=== PATIENT | male | born 1970 | race Caucasian/White ===

== ENCOUNTER 2019-04-20 12:18 | Emergency (ER) | payer OTHER, SELFPAY ==
[2019-04-20 12:18] VITALS: BP 126/91; PULSE 100; RESP 18; TEMP 36.3; O2SAT 100; BMI 45.7
--- NOTE | 2019-04-20 12:26 | CT_ITS ---
STUDY: CT ABDOMEN AND PELVIS WITH CONTRAST REASON FOR EXAM: Male, 48 years old. Abdominal pain and diarrhea. History of diverticulitis. RADIATION DOSAGE (If Supplied By Facility): CTDIvol = ( 29.07 ) mGy, DLP = ( 1993.87 ) mGycm TECHNIQUE: Transaxial images were obtained from the dome of the diaphragm to the symphysis pubis without oral contrast. 100 IV Isovue 300 was administered. Sagittal and coronal images were reconstructed. Individualized dose optimization techniques were used for this CT. COMPARISON: Comparison is made with prior study dated November 05, 2015. FINDINGS: The visualized lung bases are unremarkable. Coronary artery calcification. Normal liver. Normal gallbladder and extrahepatic biliary system. Normal spleen. Normal pancreas. Normal bilateral adrenal glands. 1.2 cm cyst in the posterior midportion of the right kidney. Normal left kidney. Normal visualized stomach. Normal small intestine. There is diverticulosis, with thickening of the colon wall, and pericolonic inflammation changes consistent with acute diverticulitis. The appendix is visualized and appears normal. There is scattered atherosclerotic calcification of the abdominal aorta, without a demonstrated aneurysm. Normal inferior vena cava. There is borderline retroperitoneal lymphadenopathy with enlarged nodes no greater than 10mm in the short axis diameter. Normal urinary bladder. There are prostatic calcifications. Small bilateral inguinal lymph nodes. There is a small umbilical hernia containing fat. Normal osseous structures. CT/Abdomen/Pelvis W IV Cont ONLY IMPRESSION: Noncomplicated acute sigmoid diverticulitis. Electronically Signed: Puneet Armstrong, at 14:25 EDT , Service support ,
--- NOTE | 2019-04-20 12:28 | ED.DCSUM_ITS ---
History of Present Illness Chief Complaint: Nausea/Vomiting/Diarrhea Detail of Chief Complaint: Diarrhea for 3 days, now nauseated with abdominal cramping Informant: Patient, Family Onset: Days Context: Gradual Onset Timing: Continuous Quality: Cramping Location: Lower abdomen Current Severity: Moderate Maximum Severity: Severe Associated Symptoms: P patient presents to the emergency department with diarrhea. He states hi Narrative: The patient presents to the emergency department with diarrhea. He states the symptoms began on Tuesday. He states he having cramping across his lower abdomen that came in waves. He states the diarrhea has slowed down, but now the pain is worse. He is been mildly nauseated. He states initially, he had a fever but that is since resolved. He is no history of prior abdominal surgery. He is a rfc-fjntzrt-qhsngvzje diabetic. He denies any recent travel. He denies any recent antibiotic use. He states he has had diverticulosis, but is unsure if he is ever had diverticulitis. Past Medical History - Allergies and Home Meds Allergies/Adverse Reactions: Allergies No Known Allergies Allergy (Verified 04/20/19 12:18) Primary Care Physician: Gerardo Borrego MD [Primary Care Provider] - Prior records reviewed: Yes Surgical History: - - uvulectomy Smoking Status: Former smoker Alcohol: Rare Drugs: None - Family History Sibling Family History: Reports: COPD, - - GERD Offspring Family History: Reports: Heart Disease - congenital heart defect requiring stents Maternal Family History: Reports: Cancer Paternal Family History: Reports: Heart Disease Review of Systems General: Reports: Chills Eyes: Denies: Visual changes - bilaterally, Diplopia ENT: Denies: Rhinorrhea, Sore throat Cardiovascular: Denies: Chest pain, Palpitations Respiratory: Denies: Dyspnea, Cough, Dyspnea on exertion Gastrointestinal: Reports: Abdominal pain, Nausea, Diarrhea Genitourinary: Denies: Dysuria, Hematuria, Frequency Musculoskeletal: Denies: Back pain, Extremity Pain Skin: Denies: Rash, Wounds Neurological: Denies: Headache, Weakness, Numbness Psych: Denies: Depression Endocrine: Denies: Polyuria Hematologic: Denies: Easy bruising Allergy: Denies: Uticaria Physical Exam Vital Signs/Narrative: Vital Signs Temp Pulse Resp BP Pulse Ox 04/20/19 12:18 97.4 F L 100 18 126/91 H 100 General: Well nourished, Well developed, No Acute Distress Head: Normocephalic, Atraumatic Eyes: Perrl, EOMI ENT: Moist mucous membranes, No rhinorrhea Neck: Supple, Nontender Cardiovascular: Regular rate, Regular rhythm, No murmurs Respiratory: No distress, CTA bilaterally, Chest nontender Abdomen: Soft, Nondistended, Tender. Negative for: Guarding, Rebound tenderness, Hyperactive bowel sounds Back: Nontender, Normal Inspection Extremities: Nontender, No edema Skin: Normal color, No rash Neurological: Alert, Oriented x3, Cranial nerves II-XII grossly intact, Normal Strength, Normal Sensation Psychological: Normal affect, Normal Mood Diagnostic/Tx/Re-eval Clinical Impression(s) from Imaging Studies Abdomen/Pelvis CT 04/20/19 12:26 IMPRESSION: Noncomplicated acute sigmoid diverticulitis. Electronically Signed: uPneet Armstrong, at 14:25 EDT , Service support , Abnormal Lab Results 04/20/19 04/20/19 04/20/19 12:50 12:50 14:00 WBC 8.1 RBC 5.50 Hgb 15.3 Hct 43.9 MCV 79.8 L MCH 27.8 MCHC 34.9 RDW 13.9 RDW Differential 40.2 Plt Count 185 MPV 10.4 Immature Gran % (Auto) 0.100 Neut % (Auto) 55.6 Lymph % (Auto) 28.4 [place] % (Auto) 11.2 H Eos % (Auto) 4.5 Baso % (Auto) 0.2 Absolute Neuts (auto) 4.5 Absolute Lymphs (auto) 2.31 Total Counted Not Reportable Sodium 134 L Potassium 3.4 L Chloride 108 H Carbon Dioxide 18.0 L Anion Gap 8 BUN 19 H Creatinine 0.76 Estim Creat Clear Calc 123.85 Est GFR (MDRD) Af Amer 139 Est GFR (MDRD) Non-Af 115 BUN/Creatinine Ratio 25.0 H Glucose 123 H Calcium 8.6 Total Bilirubin 0.60 AST 38 H ALT 47 Alkaline Phosphatase 118 H Total Protein 7.6 Albumin 3.3 Globulin 4.3 H Albumin/Globulin Ratio 0.8 L Urine Color Yellow Urine Clarity Clear Urine pH 5.0 Ur Specific [place] 1.015 Urine Protein 30 H Urine Glucose (UA) 1000 H Urine Ketones Negative Urine Occult Blood Negative Urine Nitrite Negative Urine Bilirubin Negative Urine Urobilinogen Normal Ur Leukocyte Esterase Negative - Medical Decision Making The patient presents with diarrhea and pain in his left lower quadrant. IV is established. He was given fluids, analgesics, antiemetics. He is resting more comfortably. Screening labs are relatively unremarkable. Patient underwent imaging which demonstrates diverticulitis. At this point, he is tolerating oral, his pain is controlled, and is feeling improved. I do feel it is safe for outpatient therapy. He will be covered with Cipro and Flagyl. He is given his first dose here. He is counseled concerning symptoms and reasons to return. He will be discharged home. ED Disposition - Plan for ED Patient: Instructions: Diverticulitis Prescriptions: Ciprofloxacin [Cipro] 500 mg PO BID #14 tab Prescription Printed metroNIDAZOLE [Flagyl] 500 mg PO Q8H #21 tab Prescription Printed Hydrocodone Bitart/Apap 5-325 [Drury 5MG-325MG] 1 tab PO Q6H PRN PRN 3 Days #10 tab PRN Reason: Pain Prescription Printed Referrals: Gerardo Borrego MD [Primary Care Provider] -
[2019-04-20] MEDS: Ondansetron 4 MG/2 ML Vial IV (13:00)
[2019-04-20] MEDS: Morphine 4 MG/ML Syringe IV (13:00)
[2019-04-20] MEDS: 0.9% Normal Saline 1,000 ML 1000 ML IV (13:00)
[2019-04-20 13:02] LABS: Absolute Lymphocyte Count 2.31 X10^3/ul (0.83-4.51); Absolute Neutrophil Count 4.5 X10^3/uL (2.0-7.7); Basophil# 0.02 X10^3/uL; Basophil% 0.2 % (0-1); Eosinophil# 0.37 X10^3/uL; Eosinophils% 4.5 % (0-5); Hematocrit 43.9 % (40-54); Hemoglobin 15.3 g/dl (13.0-16.5); Lymphocyte # 2.31 X10^3/ul (4.0); Lymphocyte % 28.4 % (19-41); Mean Corp Hgb Conc 34.9 g/gl (32-36); Mean Corpuscular Hgb 27.8 pg (27.0-32.0); Mean Corpuscular Volume 79.8 fL (80-94); Mean Platelet Vol. 10.4 fl (6.2-12.0); Monocyte# 0.91 X10^3/uL; Monocyte% 11.2 % (0-10); Neutrophil # 4.52 X10^3/uL (2.7-7.7); Neutrophil % 55.6 % (47-70); Platelet Count 185 K/mm3 (150-450); RBC Distribution Width CV 13.9 % (11.6-14.6); RBC Distribution Width SD 40.2 fl (35.1-43.9); White Blood Count 8.1 K/mm3 (4.4-11.0)
[2019-04-20 13:09] LABS: POSITIVE COUNT NO; POSITIVE DIFFERENTIAL NO; POSITIVE MORPHOLOGY NO
[2019-04-20 13:25] LABS: ALB/GLOB Ratio 0.8 RATIO (0.9-2.4); AST(SGOT) 38 U/L (15-37); Alanine Aminotransfer ALT/SGPT 47 U/L (16-61); Albumin, Serum 3.3 g/dL (3.2-5.0); Alkaline Phosphatase 118 U/L (45-117); Anion Gap 8 (5-15); BUN 19 mg/dL (7-18); Calcium,Total 8.6 mg/dL (8.5-10.1); Chloride 108 mmol/L (98-107); Creatinine, Serum 0.76 mg/dL (0.70-1.30); EST Glomerular Filtration Rate 115 mL/min (>60); Est Glom Filt Rate - Afr Amer 139 mL/min (>60); Estimated Creatinine Clearance 123.85 ml/min; Globulin 4.3 g/dL (2.2-4.2); Glucose 123 mg/dL (74-106); Potassium 3.4 mmol/L (3.5-5.1); Protein, Total 7.6 g/dL (6.4-8.2); Sodium Level 134 mmol/L (136-145)
[2019-04-20 14:18] LABS: Bacteria 0 SEEN /hpf (None Seen); Mucous, Urine 0 SEEN /hpf (<or=2+); Red Blood Cells-Urine 0 SEEN /hpf (0-5); Squamous Epithelial Cells - UA 0 SEEN /hpf (0-5); White Blood Cells 0 SEEN /hpf (0-5)
[2019-04-20 14:27] LABS: Color, Urine Yellow (Yellow); Glucose, Dipstick 1000 mg/dl (Normal); Ketone-Dipstick Negative (Negative); Leukocyte Esterase-Dipstick Negative /ul (Negative); Nitrite-Dipstick Negative (Negative); Occult Blood-Urine Negative /ul (Negative); Protein-Dipstick 30 mg/dl (Negative); Specific Gravity, Urine 1.015 (1.002-1.030); Urine Bilirubin Dipstick Negative (Negative); Urine Clarity Clear (Clear); Urine Urobilinogen Normal (Normal)
[2019-04-20] MEDS: Ciprofloxacin 500 MG Tablet PO (14:54)
[2019-04-20] MEDS: metroNIDAZOLE 500 MG Tablet PO (14:54)
[2019-04-20 15:00] VITALS: BP 127/81; PULSE 62; RESP 15; O2SAT 98
== END 2019-04-20 15:07 | disposition home or self-care (01) ==
PROVIDERS: Emergency Provider Emergency Medicine; Family Provider Family Medicine; PCP Family Medicine
DX: K57.32 Diverticulitis of large intestine without perforation or abscess without bleeding (principal); E11.9 Type 2 diabetes mellitus without complications; Z87.891 Personal history of nicotine dependence
CPT/HCPCS: 74177; 80053; 81001; 85025; 96361; 96374; 96375; 99284; Q9967; A4216; J2405

== ENCOUNTER 2019-08-06 09:59 | Inpatient (IN) | payer OTHER, SELFPAY ==
[2019-08-06] VITALS (9 sets, daily range): BP systolic 105–162; BP diastolic 55–95; PULSE 72–116; RESP 18–25; TEMP 37.3–37.7; O2SAT 93–100; BMI 48.1; BMI 46.8
--- NOTE | 2019-08-06 10:10 | ED.RN ---
MD AWARE OF SEPSIS ALERT, NO ORDERS ENTERED.
--- NOTE | 2019-08-06 10:19 | CT_ITS ---
STUDY: CT ABDOMEN AND PELVIS WITH CONTRAST REASON FOR EXAM: Male, 49 years old. Fever and abdominal pain. Rebound tenderness. 3 day history of difficulty with urination. RADIATION DOSAGE (If Supplied By Facility): CTDIvol = ( 20.4 ) mGy, DLP = ( 1435.5 ) mGycm TECHNIQUE: Transaxial images were obtained from the dome of the diaphragm to the symphysis pubis with oral contrast. IV/Oral Isovue 300 100 was administered. Sagittal and coronal images were reconstructed. Individualized dose optimization techniques were used for this CT. COMPARISON: Comparison is made with prior study dated April 20, 2019. FINDINGS: Minimal degree of the linear atelectasis at the left lung base. Coronary artery calcification. There is decreased attenuation of the liver consistent with steatosis. Sludge or tiny gallstones noted within the gallbladder lumen. Normal spleen. Normal pancreas. Normal bilateral adrenal glands. Stable 1.2 cm cyst in the posterior midportion of the right kidney. Normal left kidney. Normal visualized stomach. Normal small intestine. There is diverticulosis, with thickening of the colon wall, and pericolonic inflammation changes consistent with acute diverticulitis. The appendix is visualized and appears normal. There is scattered atherosclerotic calcification of the abdominal aorta, without a demonstrated aneurysm. Normal inferior vena cava. There is borderline retroperitoneal lymphadenopathy with enlarged nodes no greater than 10mm in the short axis diameter. A small air-fluid level is seen in the urinary bladder. A colovesical fistula should be ruled out. Small lymph nodes are seen within the pelvis. Prostatic calcifications. There is a small umbilical hernia containing fat. Normal osseous structures. CT/Abdomen/Pelvis WITH Contrast IMPRESSION: Findings in keeping with acute sigmoid diverticulitis and possible colovesical fistula. Fatty infiltration of the liver. Sludge or tiny gallstones noted within the gallbladder. Electronically Signed: Puneet Armstrong, at 12:56 EDT , Service support ,
--- NOTE | 2019-08-06 10:22 | ED.VIS.GEN ---
History of Present Illness Chief Complaint: Abd Pain Detail of Chief Complaint: Fever, chills, diarrhea and abdominal pain Informant: Patient Onset: Days - Onset August 03. Reported malaise initially. Increased bowel movements Tuesday and now complains of diarrhea with fever and chills Context: Gradual Onset Timing: Continuous Quality: Generalized abdominal pain Location: Generalized Current Severity: Mild Maximum Severity: Moderate Worsened by: Movement Relieved by: Nothing Associated Symptoms: Subjective fever, chills, diarrhea and shortness of breath Narrative: Patient is a morbidly obese male who presents with subjective fever, chills and generalized abdominal pain that started Tuesday. He reported increased bowel movement Tuesday and now reports diarrhea. Denies blood or mucus in his diarrhea. Does have history of diverticulitis. He also has history of hydrocele. He does report frequency and dysuria. He does have history of diabetes. Has not checked his blood sugar recently. He denies blurred vision. Does report increased thirst. Prior similar symptoms: Yes Recent Illness/Hospitalization: No - Past Medical History (1) Acute exacerbation of chronic obstructive pulmonary disease (COPD) Status: Acute (2) GERD (gastroesophageal reflux disease) Status: Chronic (3) History of diverticulosis Status: Chronic (4) Hyperlipidemia Status: Chronic (5) Hypertension Status: Chronic (6) Morbid obesity with BMI of 45.0-49.9, adult Status: Chronic (7) CATY (obstructive sleep apnea) Status: Chronic Comment: bipap at night (8) Type II diabetes mellitus Status: Chronic Past Medical History - Allergies and Home Meds Allergies/Adverse Reactions: Allergies No Known Allergies Allergy (Verified 08/06/19 10:01) Primary Care Physician: Gerardo Borrego MD [Primary Care Provider] - Prior records reviewed: Yes Surgical History: - - uvulectomy Lives: Spouse/ Significant Other Smoking Status: Former smoker Alcohol: Rare Drugs: None - Family History Sibling Family History: Reports: COPD, - - GERD Offspring Family History: Reports: Heart Disease - congenital heart defect requiring stents Maternal Family History: Reports: Cancer Paternal Family History: Reports: Heart Disease Review of Systems General: Reports: Chills, Fever, Malaise, Subjective. Denies: Sweats, Weight loss Eyes: Denies: Visual changes - bilaterally, Blurred Vision - bilaterally, Diplopia ENT: Denies: Rhinorrhea, Sore throat Cardiovascular: Denies: Chest pain, Palpitations Respiratory: Denies: Dyspnea, Cough, Dyspnea on exertion Gastrointestinal: Reports: Abdominal pain, Nausea, Diarrhea. Denies: Melena, Hematochezia Genitourinary: Reports: Dysuria, Frequency. Denies: Hematuria Musculoskeletal: Denies: Myalgias, Arthralgias, Neck pain, Back pain, Swelling, Extremity Pain, -, - Skin: Denies: Rash, Wounds Neurological: Reports: Weakness. Denies: Headache, Parasthesia, Numbness, -, - Hematologic: Denies: Easy bruising, Easy bleeding Physical Exam Vital Signs/Narrative: Vital Signs Temp Pulse Resp BP Pulse Ox 08/06/19 10:04 99.6 F H 116 H 25 H 150/95 H 95 08/06/19 10:01 99.6 F H 116 H 25 H 150/95 H 95 Inital Vital Signs reviewed: Yes General: Well nourished, Well developed, Obese, Acute Distress Head: Normocephalic, Atraumatic Eyes: Perrl, EOMI. Negative for: Pale conjunctiva, Scleral icterus ENT: Moist mucous membranes, No rhinorrhea Neck: Supple, Nontender Cardiovascular: Regular rhythm, No murmurs, Normal S1, Normal S2, Tachycardia Respiratory: Rales - At both bases, Diminished, Decreased Air Movement. Negative for: No distress, CTA bilaterally Abdomen: Soft, Nondistended, No masses, Tender, Guarding. Negative for: Nontender, Normal bowel sounds, Hepatomegaly, Splenomegaly, Mass, Pulsatile mass, Ventral hernia Rectal: Deferred : - - Circumcised without lesion or discharge. The right testicle is markedly enlarged secondary to a hydrocele. Back: Nontender, Normal Inspection Extremities: Nontender, Edema - 1+ pitting Skin: Normal color, No rash Neurological: Alert, Oriented x3, Cranial nerves II-XII grossly intact, Normal Strength, Normal Sensation Psychological: Normal affect, Normal Mood Diagnostic/Tx/Re-eval Impressions Abdomen/Pelvis CT 08/06/19 10:19 IMPRESSION: Findings in keeping with acute sigmoid diverticulitis and possible colovesical fistula. Fatty infiltration of the liver. Sludge or tiny gallstones noted within the gallbladder. Electronically Signed: Pun[place] Armstrong, at 12:56 EDT , Service support , 08/06/19 10:19 Abdomen/Pelvis WITH Contrast [CT] Stat Laboratory Results 08/06/19 08/06/19 08/06/19 10:35 10:35 10:35 WBC 13.9 H RBC 5.48 Hgb 15.2 Hct 45.3 MCV 82.7 MCH 27.7 MCHC 33.6 RDW Std Deviation 42.5 RDW Coeff of Nai 14.2 Plt Count 157 MPV 10.8 Immature Gran % (Auto) 0.700 Neut % (Auto) 79.7 H Lymph % (Auto) 11.3 L [place] % (Auto) 7.4 Eos % (Auto) 0.8 Baso % (Auto) 0.1 Absolute Neuts (auto) 11.0 H Absolute Lymphs (auto) 1.56 Nucleated RBC % 0 Sodium 134 L Potassium 3.5 Chloride 101 Carbon Dioxide 25.0 Anion Gap 8 BUN 12 Creatinine 0.80 Estim Creat Clear Calc 109.24 Est GFR (MDRD) Af Amer 131 Est GFR (MDRD) Non-Af 108 BUN/Creatinine Ratio 15.0 Glucose 178 H Calcium 9.3 Urine Color Yellow Urine Clarity Clear Urine pH 6.0 Ur Specific [place] 1.005 Urine Protein 30 H Urine Glucose (UA) 1000 H Urine Ketones Negative Urine Occult Blood 10 H Urine Nitrite Negative Urine Bilirubin Negative Urine Urobilinogen Normal Ur Leukocyte Esterase Negative Urine RBC 0-5 SEEN Urine WBC 0 SEEN Ur Squamous Epith Cells 0 SEEN Urine Bacteria 0 SEEN Urine Mucus 0 SEEN Data white count peritoneal findings and evidence of acute sigmoid diverticulitis with possible enterovesical fistula will page hospitalist for admission. Since patient has no allergy to penicillin he received 4.5 g of Zosyn IV piggyback. - Medical Decision Making Since patient is tachycardic tachypneic with subjective fever and abdominal pain with guarding and complaint of subjective fever will obtain CT of the abdomen to assess for ischemic colitis versus infectious colitis versus diverticulitis. CBC was obtained to assess white count differential. Basic metabolic I was obtained to assess electrolytes with reported history of diarrhea especially potassium. Also to assess glucose since he is diabetic as well as CO2/anion gap. Because he complained of urinary symptoms a complete UA was obtained as well. Patient received a fluid bolus of 3 cc/kg prior to CT of the abdomen with IV contrast. ED Disposition - Plan for ED Patient: Disposition: Acute Care [facility] Diagnosis: Diverticulitis of sigmoid colon, Enterovesical fistula, Acute peritonitis, Hydrocele in adult Referrals: Gerardo Borrego MD [Primary Care Provider] -
[2019-08-06] MEDS: Morphine 4 MG/ML Syringe IV (10:29)
[2019-08-06] MEDS: Ondansetron 4 MG/2 ML Vial IV (10:31)
[2019-08-06 10:54] LABS: Bacteria 0 SEEN /hpf (None Seen); Mucous, Urine 0 SEEN /hpf (<or=2+); Squamous Epithelial Cells - UA 0 SEEN /hpf (0-5); White Blood Cells 0 SEEN /hpf (0-5)
[2019-08-06 10:55] LABS: Absolute Lymphocyte Count 1.56 X10^3/uL (0.83-4.51); Basophil# 0.02 X10^3/uL; Basophil% 0.1 % (0-1); Eosinophil# 0.11 X10^3/uL; Eosinophils% 0.8 % (0-5); Hematocrit 45.3 % (40-54); Hemoglobin 15.2 g/dL (13.0-16.5); Lymphocyte # 1.56 X10^3/ul (4.0); Lymphocyte % 11.3 % (19-41); Mean Corp Hgb Conc 33.6 g/dL (32-36); Mean Corpuscular Hgb 27.7 pg (27.0-32.0); Mean Corpuscular Volume 82.7 fL (80-94); Mean Platelet Vol. 10.8 fl (6.2-12.0); Monocyte# 1.02 X10^3/uL; Monocyte% 7.4 % (0-10); NRBC Flagged by Analyzer 0 % (0-5); Neutrophil # 11.04 X10^3/uL (2.7-7.7); Neutrophil % 79.7 % (47-70); Platelet Count 157 K/mm3 (150-450); RBC Distribution Width CV 14.2 % (11.6-14.6); RBC Distribution Width SD 42.5 fl (35.1-43.9); Red Blood Count 5.48 M/mm3 (4.6-6.2); White Blood Count 13.9 K/mm3 (4.4-11.0)
[2019-08-06 11:00] LABS: Color, Urine Yellow (Yellow); Glucose, Dipstick 1000 mg/dl (Normal); Ketone-Dipstick Negative (Negative); Leukocyte Esterase-Dipstick Negative /ul (Negative); Nitrite-Dipstick Negative (Negative); Occult Blood-Urine 10 /ul (Negative); Protein-Dipstick 30 mg/dl (Negative); Specific Gravity, Urine 1.005 (1.002-1.030); Urine Bilirubin Dipstick Negative (Negative); Urine Clarity Clear (Clear); Urine Urobilinogen Normal (Normal)
[2019-08-06 11:08] LABS: Anion Gap 8 (5-15); BUN 12 mg/dL (7-18); Calcium,Total 9.3 mg/dL (8.5-10.1); Chloride 101 mmol/L (98-107); EST Glomerular Filtration Rate 108 mL/min (>60); Est Glom Filt Rate - Afr Amer 131 mL/min (>60); Estimated Creatinine Clearance 109.24 ml/min; Glucose 178 mg/dL (74-106); Potassium 3.5 mmol/L (3.5-5.1); Red Blood Cells-Urine 0-5 SEEN /hpf (0-5); Sodium Level 134 mmol/L (136-145)
[2019-08-06] MEDS: HYDROcodone Bitartrate/Apap 5/325 Tablet PO ×2 (15:27→21:47)
--- NOTE | 2019-08-06 16:50 | NURSING ---
IVF rate 125 on bag brought with pt from ER
[2019-08-06] MEDS: metroNIDAZOLE 500 MG/100 ML BAG 100 MG IV ×2 (17:30→21:46)
[2019-08-06 17:40] LABS: Bedside Glucose 217 mg/dL (70-110)
[2019-08-06] MEDS: Insulin Lispro 100 UNIT/ML INSULN.PEN SC (17:47)
--- NOTE | 2019-08-06 18:45 | PCM.CONS.GEN ---
Reason for Consult Date of Consultation: 08/06/19 Reason for Consultation: left lower quadrant abdominal pain, pneumaturia History of Present Illness: The patient is a 49 year old M with a complaint of a 4 day history of left lower quadrant pain and pneumaturia. I had seen the patient in the past in 2015 for complaint of left lower quadrant abdominal pain. He had a CT scan obtained over that time which was interpreted as possible diverticulitis. Patient a past medical history for COPD, sleep apnea, emphysema and upper abdominal complaints. I performed upper and lower endoscopy on January 21, 2016 which demonstrated minimal gastritis and a few sigmoid diverticula. the patient was doing reasonably well until 4 days previously when he noted increasing left lower quadrant abdominal pain and fever and a degree of anorexia. Most interestingly, the patient noted pneumaturia with voiding of urine followed by air sprain towards the end of voiding. He denied urinary tract infections or foul-smelling urine. he was found elevated white blood cell count of 13.9 with a left shift. his laboratory values were unremarkable except for a glucose of 178. his urinalysis demonstrated protein glucose in the urine and remarkably was otherwise negative. CT scan of the abdomen pelvis was obtained. This demonstrated: CT/Abdomen/Pelvis WITH Contrast IMPRESSION: Findings in keeping with acute sigmoid diverticulitis and possible colovesical fistula. Fatty infiltration of the liver. Sludge or tiny gallstones noted within the gallbladder. the patient was admitted and started on IV antibiotics-Zosyn. Past Medical History Past Medical History (Chronic Problems): Chronic Problems Morbid obesity with body mass index of 50.0-59.9 in adult (Chronic) Asthma (Chronic) GERD (gastroesophageal reflux disease) (Chronic) Hypertension (Chronic) Type II diabetes mellitus (Chronic) CATY (obstructive sleep apnea) (Chronic) bipap at night possible copd (Chronic) Type 2 diabetes mellitus with hyperglycemia (Chronic) Morbid obesity with BMI of 45.0-49.9, adult (Chronic) History of diverticulosis (Chronic) Hyperlipidemia (Chronic) COPD exacerbation (Chronic) Allergies No Known Allergies Allergy (Verified 08/06/19 10:01) Home Medications: Ambulatory Orders Medication Instructions Recorded Albuterol Aerosols [Ventolin 2.5 mg INHALATION Q6H PRN PRN 01/03/16 Aerosols] Atorvastatin Calcium [Lipitor] 40 mg PO QHS 03/19/16 Citalopram [Celexa] 30 mg PO DAILY 01/03/16 Glimepiride [Amaryl] 2 mg PO DAILY 01/03/16 Lisinopril [Zestril] 10 mg PO DAILY 01/03/16 Loratadine [Claritin] 10 mg PO DAILY PRN PRN 01/03/16 Guaifenesin [Mucinex] 600 mg PO BID PRN PRN 01/15/16 Fluticasone/Vilanterol [Breo 1 each IH DAILY #1 aer.pow.ba 05/25/16 Ellipta 100-25 Mcg INH] Albuterol Inhaler [Ventolin Hfa] 2 puff INHALATION Q2H PRN PRN #0 11/20/16 Insulin Detemir [Levemir FlexPen] 50 units SUBCUT QHS 08/06/19 Metformin HCl [Metformin HCl ER] 500 mg PO BID 08/06/19 Omeprazole 40 mg PO BID 08/06/19 Surgical History: - - uvulectomy Psychiatric History: No pertinent psych hx Lives: Spouse/ Significant Other Smoking Status: Former smoker Alcohol: Rare Drugs: None - *Family History Sibling History Items: COPD, - - GERD Offspring History Items: Heart Disease - congenital heart defect requiring stents Maternal History Items: Cancer Paternal History Items: Heart Disease Review of Systems Constitutional: Denies: Chills, Fever, Weight Change HEENT: Denies: Head Aches, Sinus Congestion, Sinus Drainage Cardiovascular: Denies: Chest Pain, Palpitations Respiratory: Denies: Cough, Shortness of breath at rest, Sputum production Gastrointestinal: Reports: Abdominal Pain. Denies: Nausea, Vomiting Genitourinary: Reports: - - pneumaturia. Denies: Dysuria Musculoskeletal: Denies: Joint Pain, Joint Tenderness Skin: Denies: Rash, Wounds Neurological: Denies: Numbness, Tingling, Focal weakness Psychiatric: Denies: Anxiety, Depression, Homicidal Ideations, Suicidal Ideations Hematologic/ Lymphatic: Denies: Easy Bruising, Easy Bleeding Patient Problems: Active and Suspected Problems Diverticulitis of sigmoid colon (Acute) Enterovesical fistula (Acute) Acute peritonitis (Acute) Hydrocele in adult (Acute) - Physical Exam Vitals/I&O's: Vital Signs Temp Pulse Resp BP Pulse Ox 99.8 F H 94 20 H 113/55 L 100 08/06/19 15:00 08/06/19 15:00 08/06/19 15:00 08/06/19 15:00 08/06/19 15:00 Oxygen Delivery Method Room Air Weight: 147.9 kg Body Mass Index (BMI) 48.1 Intake and Output for Last 24 Hours 08/04/19 08/05/19 08/06/19 23:59 23:59 23:59 Intake Total 940 / 940 Output Total 300 / 300 Balance 640 / 640 General: Alert, Oriented x3, Cooperative Lungs: Clear to auscultation, Normal air movement Cardiovascular: Regular rate, No murmurs Abdomen: Bowel Sounds Present, Soft, Tender - mildly so in bilateral lower quadrants. Laboratory Results 08/06/19 10:35: WBC 13.9 H, RBC 5.48, Hgb 15.2, Hct 45.3, MCV 82.7, MCH 27.7, MCHC 33.6, RDW Std Deviation 42.5, RDW Coeff of Nai 14.2, Plt Count 157, MPV 10.8, Immature Gran % (Auto) 0.700, Neut % (Auto) 79.7 H, Lymph % (Auto) 11.3 L, [place] % (Auto) 7.4, Eos % (Auto) 0.8, Baso % (Auto) 0.1, Absolute Neuts (auto) 11.0 H, Absolute Lymphs (auto) 1.56, Nucleated RBC % 0 08/06/19 10:35: Sodium 134 L, Potassium 3.5, Chloride 101, Carbon Dioxide 25.0, Anion Gap 8, BUN 12, Creatinine 0.80, Estim Creat Clear Calc 109.24, Est GFR (MDRD) Af Amer 131, Est GFR (MDRD) Non-Af 108, BUN/Creatinine Ratio 15.0, Glucose 178 H, Calcium 9.3 08/06/19 10:35: Urine Color Yellow, Urine Clarity Clear, Urine pH 6.0, Ur Specific [place] 1.005, Urine Protein 30 H, Urine Glucose (UA) 1000 H, Urine Ketones Negative, Urine Occult Blood 10 H, Urine Nitrite Negative, Urine Bilirubin Negative, Urine Urobilinogen Normal, Ur Leukocyte Esterase Negative, Urine RBC 0-5 SEEN, Urine WBC 0 SEEN, Ur Squamous Epith Cells 0 SEEN, Urine Bacteria 0 SEEN, Urine Mucus 0 SEEN 08/06/19 17:32: POC Glucose 217 H Current Medications Acetaminophen (Tylenol) 650 mg PO Q6H PRN PRN PRN Reason: Mild Pain (1-3)/Temp > 100.7 F Hydrocodone Bitart/Acetaminophen ([place] 5mg-325mg) 2 tablet PO Q6H PRN PRN PRN Reason: Moderate Pain (4-6/10) Last Admin: 08/06/19 15:27 Dose: 2 tablet Documented by: Albuterol Sulfate (Ventolin Aerosols) 2.5 mg INHALATION Q4H PRN PRN Reason: COUGH/WHEEZE Atorvastatin Calcium (Lipitor) 40 mg PO QHS [facility] Citalopram Hydrobromide (Celexa) 30 mg PO DAILY [facility] Dextrose (D50w Syringe) 0 gm IV X1 PRN; Protocol PRN Reason: Hypoglycemia Glimepiride (Amaryl) 2 mg PO DAILYCM [facility] Glucagon () 1 mg IM .X1 PRN PRN Reason: Hypoglycemia Heparin Sodium (Porcine) (Heparin Na) 5,000 unit SC Q12 [facility] Sodium Chloride () 1,000 mls @ 125 mls/hr IV .Q8H [facility] Piperacillin Sod/Tazobactam (Sod 3.375 gm/ Sodium Chloride) 50 mls @ 12.5 mls/hr IV Q8 [facility] Metronidazole (Flagyl) 500 mg in 100 mls @ 100 mls/hr IV Q8 [facility] Last Admin: 08/06/19 17:30 Dose: 100 mls/hr Documented by: Insulin Human Lispro (Humalog Kwikpen (Bkc)) 0 unit SC Q6 [facility]; Protocol Last Admin: 08/06/19 17:47 Dose: 6 units Documented by: Lisinopril (Zestril) 10 mg PO DAILY [facility] Morphine Sulfate () 4 mg IV Q3H PRN PRN PRN Reason: Severe pain (7-10/10) Ondansetron HCl (Zofran) 4 mg IV Q8H PRN PRN PRN Reason: NAUSEA/VOMITING Pantoprazole Sodium (Protonix) 40 mg PO DAILY [facility] Sodium Chloride () 5 - 15 ml IV UD PRN PRN Reason: SALINE FLUSH Assessment/Plan All Active Problems Diverticulitis of sigmoid colon (Acute) Enterovesical fistula (Acute) Acute peritonitis (Acute) Hydrocele in adult (Acute) Asthma exacerbation (Acute) Acute exacerbation of COPD with asthma (Acute) Viral URI (Resolved) Acute exacerbation of chronic obstructive pulmonary disease (COPD) (Acute) CAP (community acquired pneumonia) (Acute) Acute respiratory insufficiency (Acute) DVT (deep venous thrombosis) (Resolved) History of diverticulitis of colon (Resolved) lower abdominal pain, CT scan consistent with diverticulitis complicated by pneumaturia suggestive of colovesical fistula I recommend the patient maintained on IV antibiotics. As his white count normalizes abdominal pain improves we may advance his diet. At this point I would plan for once the acute infection is gone in a few weeks plan for a barium enema and x-raying his urine to assess for barium in his urine which would be diagnostic of it colovesical fistula. Would then expect we would talk about sigmoid resection and probably 6-8 weeks. I discussed with the patient in addition to standard sigmoid resection this would involve removal of small amount of the wall of the bladder closure bladder and typically a Deleon catheter placed per week. Patient a previous history of hyperglycemia. His blood glucoses 178. We'll follow his serial blood glucoses obtain hemoglobin A1c.
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
[2019-08-06 21:57] LABS: Bedside Glucose 141 mg/dL (70-110)
[2019-08-06] MEDS: Heparin Injection (Vial) 5,000 UNIT/ML VIAL 5000 UNIT SC (21:58)
[2019-08-06] MEDS: Atorvastatin Calcium 40 MG Tablet PO (21:58)
[2019-08-06] MEDS: Albuterol 2.5 MG/3 ML VIAL.NEB. INHALATION (22:40)
[2019-08-06] MEDS: 0.9% Normal Saline 1,000 ML 125 ML IV (23:27)
[2019-08-07 02:38] VITALS: BP 112/86; PULSE 55; RESP 20; TEMP 36.6; O2SAT 100
[2019-08-07] MEDS: metroNIDAZOLE 500 MG/100 ML BAG 100 MG IV ×3 (05:37→21:22)
[2019-08-07 05:46] LABS: Bedside Glucose 118 mg/dL (70-110)
[2019-08-07 06:34] LABS: Absolute Lymphocyte Count 1.47 X10^3/uL (0.83-4.51); Absolute Neutrophil Count 6.5 X10^3/uL (2.0-7.7); Basophil# 0.04 X10^3/uL; Basophil% 0.4 % (0-1); Eosinophil# 0.28 X10^3/uL; Hematocrit 42.6 % (40-54); Lymphocyte # 1.47 X10^3/ul (4.0); Lymphocyte % 15.9 % (19-41); Mean Corp Hgb Conc 32.9 g/dL (32-36); Mean Corpuscular Hgb 27.5 pg (27.0-32.0); Mean Corpuscular Volume 83.7 fL (80-94); Mean Platelet Vol. 12.6 fl (6.2-12.0); Monocyte% 9.7 % (0-10); NRBC Flagged by Analyzer 0 % (0-5); Neutrophil # 6.53 X10^3/uL (2.7-7.7); Neutrophil % 70.6 % (47-70); Platelet Count 172 K/mm3 (150-450); RBC Distribution Width CV 13.9 % (11.6-14.6); RBC Distribution Width SD 42.3 fl (35.1-43.9); Red Blood Count 5.09 M/mm3 (4.6-6.2); White Blood Count 9.3 K/mm3 (4.4-11.0)
[2019-08-07] MEDS: 0.9% Normal Saline 1,000 ML 125 ML IV ×2 (06:57→15:39)
[2019-08-07] MEDS: HYDROcodone Bitartrate/Apap 5/325 Tablet PO ×3 (07:10→19:46)
--- NOTE | 2019-08-07 07:33 | PN_ITS ---
Patient Problems: Active and Suspected Problems Diverticulitis of sigmoid colon (Acute) Enterovesical fistula (Acute) Acute peritonitis (Acute) Abdominal pain (Acute) Subjective: CC follow-up abdominal pain Patient is a 49-year-old gentleman who presented with abdominal pain and difficulty with urination. Imaging studies obtained on admission demonstrated findings consistent with acute sigmoid diverticulitis as well as possible colovesicular fistula admitted to regular nursing for further management Objective: GENERAL: cooperative HEENT: Atraumatic; EYES; Anicteric, Normal Conjunctiva NECK; supple, normal thyroid, RESPIRATORY: Diminished to auscultation CARDIOVASCULAR: Regular S1 S2, GI: soft, normoactive bowel sounds, : No Renal angle tenderness; EXTREMITIES: No edema, no clubbing, MUSCULOSKELETAL: no muscle waisting NEURO: Awake; no lateralizing signs. SKIN: No Rash PSYCH; Flat affect Vitals/I&O's: Vital Signs Temp Pulse Resp BP Pulse Ox 97.8 F 55 L 20 H 112/86 H 100 08/07/19 02:38 08/07/19 02:38 08/07/19 02:38 08/07/19 02:38 08/07/19 02:38 Oxygen Flow Rate (L/min) 2 Oxygen Delivery Method Nasal Cannula Weight: 147.9 kg Body Mass Index (BMI) 48.1 Intake and Output for Last 24 Hours 08/05/19 08/06/19 08/07/19 23:59 23:59 23:59 Intake Total 1640.25 / 1640.25 1025.25 / 1025.25 Output Total 1325 / 1325 Balance 315.25 / 315.25 1025.25 / 1025.25 Laboratory Results 08/06/19 10:35: WBC 13.9 H, RBC 5.48, Hgb 15.2, Hct 45.3, MCV 82.7, MCH 27.7, MCHC 33.6, RDW Std Deviation 42.5, RDW Coeff of Nai 14.2, Plt Count 157, MPV 10.8, Immature Gran % (Auto) 0.700, Neut % (Auto) 79.7 H, Lymph % (Auto) 11.3 L, [place] % (Auto) 7.4, Eos % (Auto) 0.8, Baso % (Auto) 0.1, Absolute Neuts (auto) 11.0 H, Absolute Lymphs (auto) 1.56, Nucleated RBC % 0 08/06/19 10:35: Sodium 134 L, Potassium 3.5, Chloride 101, Carbon Dioxide 25.0, Anion Gap 8, BUN 12, Creatinine 0.80, Estim Creat Clear Calc 109.24, Est GFR (MDRD) Af Amer 131, Est GFR (MDRD) Non-Af 108, BUN/Creatinine Ratio 15.0, Glucose 178 H, Calcium 9.3 08/06/19 10:35: Urine Color Yellow, Urine Clarity Clear, Urine pH 6.0, Ur Specific [place] 1.005, Urine Protein 30 H, Urine Glucose (UA) 1000 H, Urine Ketones Negative, Urine Occult Blood 10 H, Urine Nitrite Negative, Urine Bilirubin Negative, Urine Urobilinogen Normal, Ur Leukocyte Esterase Negative, Urine RBC 0-5 SEEN, Urine WBC 0 SEEN, Ur Squamous Epith Cells 0 SEEN, Urine Bacteria 0 SEEN, Urine Mucus 0 SEEN 08/06/19 17:32: POC Glucose 217 H 08/06/19 21:52: POC Glucose 141 H 08/07/19 05:40: POC Glucose 118 H 08/07/19 05:56: WBC 9.3, RBC 5.09, Hgb 14.0, Hct 42.6, MCV 83.7, MCH 27.5, MCHC 32.9, RDW Std Deviation 42.3, RDW Coeff of Nai 13.9, Plt Count 172, MPV 12.6 H, Immature Gran % (Auto) 0.400, Neut % (Auto) 70.6 H, Lymph % (Auto) 15.9 L, [place] % (Auto) 9.7, Eos % (Auto) 3.0, Baso % (Auto) 0.4, Absolute Neuts (auto) 6.5, Absolute Lymphs (auto) 1.47, Nucleated RBC % 0 08/07/19 05:56: Hemoglobin A1c Pending Current Medications Acetaminophen (Tylenol) 650 mg PO Q6H PRN PRN PRN Reason: Mild Pain (1-3)/Temp > 100.7 F Hydrocodone Bitart/Acetaminophen ([place] 5mg-325mg) 2 tablet PO Q6H PRN PRN PRN Reason: Moderate Pain (4-6/10) Last Admin: 08/07/19 07:10 Dose: 2 tablet Documented by: Albuterol Sulfate (Ventolin Aerosols) 2.5 mg INHALATION Q4H PRN PRN Reason: COUGH/WHEEZE Last Admin: 08/06/19 22:40 Dose: 2.5 mg Documented by: Atorvastatin Calcium (Lipitor) 40 mg PO QHS [facility] Last Admin: 08/06/19 21:58 Dose: 40 mg Documented by: Citalopram Hydrobromide (Celexa) 30 mg PO DAILY [facility] Dextrose (D50w Syringe) 0 gm IV X1 PRN; Protocol PRN Reason: Hypoglycemia Glimepiride (Amaryl) 2 mg PO DAILYCM [facility] Glucagon () 1 mg IM .X1 PRN PRN Reason: Hypoglycemia Heparin Sodium (Porcine) (Heparin Na) 5,000 unit SC Q12 [facility] Last Admin: 08/06/19 21:58 Dose: 5,000 unit Documented by: Sodium Chloride () 1,000 mls @ 125 mls/hr IV .Q8H [facility] Last Admin: 08/07/19 06:57 Dose: 125 mls/hr Documented by: Piperacillin Sod/Tazobactam (Sod 3.375 gm/ Sodium Chloride) 50 mls @ 12.5 mls/hr IV Q8 [facility] Last Admin: 08/07/19 06:54 Dose: 12.5 mls/hr Documented by: Metronidazole (Flagyl) 500 mg in 100 mls @ 100 mls/hr IV Q8 [facility] Last Infusion: 08/07/19 06:37 Dose: Infused Documented by: Sodium Chloride () 250 mls @ 15 mls/hr IV .[id number] PRN PRN Reason: Saline Flush Last Infusion: 08/07/19 06:55 Dose: 0 mls/hr Documented by: Insulin Human Lispro (Humalog Kwikpen (Bkc)) 0 unit SC Q6 [facility]; Protocol Last Admin: 08/07/19 05:41 Dose: Not Given Documented by: Lisinopril (Zestril) 10 mg PO DAILY [facility] Morphine Sulfate () 4 mg IV Q3H PRN PRN PRN Reason: Severe pain (7-10/10) Ondansetron HCl (Zofran) 4 mg IV Q8H PRN PRN PRN Reason: NAUSEA/VOMITING Pantoprazole Sodium (Protonix) 40 mg PO DAILY [facility] Sodium Chloride () 5 - 15 ml IV UD PRN PRN Reason: SALINE FLUSH Medical Necessity - Tobacco Use Smoking Status: Former smoker Tobacco Use: Non-smoker Assessment/Plan All Active Problems Diverticulitis of sigmoid colon (Acute) Enterovesical fistula (Acute) Acute peritonitis (Acute) Hydrocele in adult (Resolved) Abdominal pain (Acute) Asthma exacerbation (Resolved) Acute exacerbation of COPD with asthma (Resolved) Viral URI (Resolved) Acute exacerbation of chronic obstructive pulmonary disease (COPD) (Resolved) CAP (community acquired pneumonia) (Resolved) Acute respiratory insufficiency (Resolved) DVT (deep venous thrombosis) (Resolved) History of diverticulitis of colon (Resolved) Patient is a 49-year-old gentleman who presented with abdominal pain and difficulty with urination. Imaging studies obtained on admission demonstrated findings consistent with acute sigmoid diverticulitis as well as possible colovesicular fistula admitted to regular nursing for further management 1. Acute sigmoid diverticulitis ~ admitted to regular nursing floor where patient is currently being managed with antibiotics Zosyn, low residue diet and consultation placed to general surgery 2. Possible colovesicular fistula ~ Admitted to regular nursing floor consult placed to general surgery definitive; patient was seen by Dr. Grace's plan is for patient to undergo barium enema and x-raying his urine to assess for barium in his urine which would be diagnostic of it colovesical fistula 3. COPD ~ Currently not in exacerbation aerosol treatments as needed 4. Diabetes mellitus type II ~ Controlled patient's oral hypoglycemics held. Placed on long acting insulin, Accu-Cheks a.c. and at bedtime and covered with sliding scale insulin 5. Morbid obesity ~ With BMI of 46.8 weight loss advised 6. Dyslipidemia ~patient is on statin therapy, continued at home dose 7. Hypertension ~ blood pressure controlled, home medications continued with dose adjustment as needed 8. DVT prophylaxis ~SC heparin Clinical Impression(s) from Imaging Studies Abdomen/Pelvis CT 08/06/19 10:19 IMPRESSION: Findings in keeping with acute sigmoid diverticulitis and possible colovesical fistula. Fatty infiltration of the liver. Sludge or tiny gallstones noted within the gallbladder. Electronically Signed: Puneet Armstrong, at 12:56 EDT , Service support , Active Medications Acetaminophen (Tylenol) 650 mg PO Q6H PRN PRN PRN Reason: Mild Pain (1-3)/Temp > 100.7 F Hydrocodone Bitart/Acetaminophen ([place] 5mg-325mg) 2 tablet PO Q6H PRN PRN PRN Reason: Moderate Pain (4-6/10) Last Admin: 08/07/19 07:10 Dose: 2 tablet Documented by: Albuterol Sulfate (Ventolin Aerosols) 2.5 mg INHALATION Q4H PRN PRN Reason: COUGH/WHEEZE Last Admin: 08/06/19 22:40 Dose: 2.5 mg Documented by: Atorvastatin Calcium (Lipitor) 40 mg PO QHS [facility] Last Admin: 08/06/19 21:58 Dose: 40 mg Documented by: Citalopram Hydrobromide (Celexa) 30 mg PO DAILY [facility] Dextrose (D50w Syringe) 0 gm IV X1 PRN; Protocol PRN Reason: Hypoglycemia Glimepiride (Amaryl) 2 mg PO DAILYCM [facility] Glucagon () 1 mg IM .X1 PRN PRN Reason: Hypoglycemia Heparin Sodium (Porcine) (Heparin Na) 5,000 unit SC Q12 [facility] Last Admin: 08/06/19 21:58 Dose: 5,000 unit Documented by: Sodium Chloride () 1,000 mls @ 125 mls/hr IV .Q8H [facility] Last Admin: 08/07/19 06:57 Dose: 125 mls/hr Documented by: Piperacillin Sod/Tazobactam (Sod 3.375 gm/ Sodium Chloride) 50 mls @ 12.5 mls/hr IV Q8 [facility] Last Admin: 08/07/19 06:54 Dose: 12.5 mls/hr Documented by: Metronidazole (Flagyl) 500 mg in 100 mls @ 100 mls/hr IV Q8 [facility] Last Infusion: 08/07/19 06:37 Dose: Infused Documented by: Sodium Chloride () 250 mls @ 15 mls/hr IV .[id number] PRN PRN Reason: Saline Flush Last Infusion: 08/07/19 06:55 Dose: 0 mls/hr Documented by: Insulin Human Lispro (Humalog Kwikpen (Bkc)) 0 unit SC Q6 [facility]; Protocol Last Admin: 08/07/19 05:41 Dose: Not Given Documented by: Lisinopril (Zestril) 10 mg PO DAILY [facility] Morphine Sulfate () 4 mg IV Q3H PRN PRN PRN Reason: Severe pain (7-07/26) Ondansetron HCl (Zofran) 4 mg IV Q8H PRN PRN PRN Reason: NAUSEA/VOMITING Pantoprazole Sodium (Protonix) 40 mg PO DAILY [facility] Sodium Chloride () 5 - 15 ml IV UD PRN PRN Reason: SALINE FLUSH Code Visit Inpatient E&M: 03695 Subs Hosp L2
[2019-08-07 08:12] LABS: Hemoglobin A1c 6.9 % (4.2-6.3)
[2019-08-07 10:20] VITALS: BP 112/67; PULSE 67; RESP 20; TEMP 36.5; O2SAT 98
[2019-08-07] MEDS: Lisinopril 10 MG Tablet PO (10:26)
[2019-08-07] MEDS: Citalopram 20 MG Tablet 30 MG PO (10:27)
[2019-08-07] MEDS: Glimepiride 2 MG Tablet PO (10:27)
[2019-08-07] MEDS: Pantoprazole Sodium 40 MG Tablet PO (10:28)
[2019-08-07] MEDS: Heparin Injection (Vial) 5,000 UNIT/ML VIAL 5000 UNIT SC ×2 (10:28→21:22)
--- NOTE | 2019-08-07 11:04 | CASEMGMT ---
RN CM Assessment Presentation: Intro role of CM and purpose of RN CM assessment. Demographics, PCP and Pharmacy verified. PCP: Specialists: Preferred Pharmacy: Insurance: Prescription Benefit: LNOK: Living Arrangements: Transportation: DME: HHC: Patient DC goals: DC PLAN:
--- NOTE | 2019-08-07 11:05 | CASEMGMT ---
RN CM Assessment Presentation: Abd pain, fever Intro role of CM and purpose of RN CM assessment. Demographics, PCP and Pharmacy verified. PCP: Dr. Borrego Specialists: Dr. Velazquez Preferred Pharmacy: [facility] Insurance: [facility] Prescription Benefit: yes LNOK: Nya Souza, Living Arrangements: Lives independently. No care needs identified. Transportation: Drives, or can drive. DME: wears Bipap @ [facility]. no ambulatory DME HHC: none Patient DC goals: Home DC PLAN: Anticipate Home with f/u with Dr. Velazquez. Pt denied any dc needs at this time. Will contact CM if concerns arise. Richi DUN RN ACM
[2019-08-07 12:10] LABS: Bedside Glucose 140 mg/dL (70-110)
--- NOTE | 2019-08-07 12:44 | PCM.PN.SRG ---
Patient Problems: Active and Suspected Problems Diverticulitis of sigmoid colon (Acute) Enterovesical fistula (Acute) Acute peritonitis (Acute) Abdominal pain (Acute) Subjective: less pain, hungry - Physical Exam Vitals/I&O's: Vital Signs Temp Pulse Resp BP Pulse Ox 97.7 F L 67 20 H 112/67 98 08/07/19 10:20 08/07/19 10:20 08/07/19 10:20 08/07/19 10:20 08/07/19 10:20 Oxygen Flow Rate (L/min) 2 Oxygen Delivery Method Room Air Weight: 147.9 kg Body Mass Index (BMI) 48.1 Intake and Output for Last 24 Hours 08/05/19 08/06/19 08/07/19 23:59 23:59 23:59 Intake Total 1640.25 / 1640.25 2075.25 / 2075.25 Output Total 1325 / 1325 400 / 400 Balance 315.25 / 315.25 1675.25 / 1675.25 General: Alert, Oriented x3, Cooperative Lungs: Rhonchi, Wheezes Cardiovascular: Regular rate, No murmurs Abdomen: Bowel Sounds Present, Soft, Non Tender Laboratory Results 08/06/19 17:32: POC Glucose 217 H 08/06/19 21:52: POC Glucose 141 H 08/07/19 05:40: POC Glucose 118 H 08/07/19 05:56: WBC 9.3, RBC 5.09, Hgb 14.0, Hct 42.6, MCV 83.7, MCH 27.5, MCHC 32.9, RDW Std Deviation 42.3, RDW Coeff of Nai 13.9, Plt Count 172, MPV 12.6 H, Immature Gran % (Auto) 0.400, Neut % (Auto) 70.6 H, Lymph % (Auto) 15.9 L, [place] % (Auto) 9.7, Eos % (Auto) 3.0, Baso % (Auto) 0.4, Absolute Neuts (auto) 6.5, Absolute Lymphs (auto) 1.47, Nucleated RBC % 0 08/07/19 05:56: Hemoglobin A1c 6.9 H 08/07/19 11:58: POC Glucose 140 H Current Medications Acetaminophen (Tylenol) 650 mg PO Q6H PRN PRN PRN Reason: Mild Pain (1-3)/Temp > 100.7 F Hydrocodone Bitart/Acetaminophen ([place] 5mg-325mg) 2 tablet PO Q6H PRN PRN PRN Reason: Moderate Pain (4-6/10) Last Admin: 08/07/19 07:10 Dose: 2 tablet Documented by: Albuterol Sulfate (Ventolin Aerosols) 2.5 mg INHALATION Q4H PRN PRN Reason: COUGH/WHEEZE Last Admin: 08/06/19 22:40 Dose: 2.5 mg Documented by: Atorvastatin Calcium (Lipitor) 40 mg PO QHS [facility] Last Admin: 08/06/19 21:58 Dose: 40 mg Documented by: Citalopram Hydrobromide (Celexa) 30 mg PO DAILY [facility] Last Admin: 08/07/19 10:27 Dose: 30 mg Documented by: Dextrose (D50w Syringe) 0 gm IV X1 PRN; Protocol PRN Reason: Hypoglycemia Glimepiride (Amaryl) 2 mg PO DAILYCM [facility] Last Admin: 08/07/19 10:27 Dose: 2 mg Documented by: Glucagon () 1 mg IM .X1 PRN PRN Reason: Hypoglycemia Heparin Sodium (Porcine) (Heparin Na) 5,000 unit SC Q12 [facility] Last Admin: 08/07/19 10:28 Dose: 5,000 unit Documented by: Sodium Chloride () 1,000 mls @ 125 mls/hr IV .Q8H [facility] Last Admin: 08/07/19 06:57 Dose: 125 mls/hr Documented by: Piperacillin Sod/Tazobactam (Sod 3.375 gm/ Sodium Chloride) 50 mls @ 12.5 mls/hr IV Q8 [facility] Last Infusion: 08/07/19 10:55 Dose: Infused Documented by: Metronidazole (Flagyl) 500 mg in 100 mls @ 100 mls/hr IV Q8 [facility] Last Infusion: 08/07/19 06:37 Dose: Infused Documented by: Sodium Chloride () 250 mls @ 15 mls/hr IV .[id number] PRN PRN Reason: Saline Flush Last Infusion: 08/07/19 10:55 Dose: 15 mls/hr Documented by: Insulin Human Lispro (Humalog Kwikpen (Bkc)) 0 unit SC Q6 [facility]; Protocol Last Admin: 08/07/19 12:04 Dose: Not Given Documented by: Lisinopril (Zestril) 10 mg PO DAILY [facility] Last Admin: 08/07/19 10:26 Dose: 10 mg Documented by: Morphine Sulfate () 4 mg IV Q3H PRN PRN PRN Reason: Severe pain (7-10/10) Ondansetron HCl (Zofran) 4 mg IV Q8H PRN PRN PRN Reason: NAUSEA/VOMITING Pantoprazole Sodium (Protonix) 40 mg PO DAILY [facility] Last Admin: 08/07/19 10:28 Dose: 40 mg Documented by: Sodium Chloride () 5 - 15 ml IV UD PRN PRN Reason: SALINE FLUSH Medical Necessity - Tobacco Use Smoking Status: Former smoker Tobacco Use: Non-smoker Assessment/Plan All Active Problems Diverticulitis of sigmoid colon (Acute) Enterovesical fistula (Acute) Acute peritonitis (Acute) Hydrocele in adult (Resolved) Abdominal pain (Acute) Asthma exacerbation (Resolved) Acute exacerbation of COPD with asthma (Resolved) Viral URI (Resolved) Acute exacerbation of chronic obstructive pulmonary disease (COPD) (Resolved) CAP (community acquired pneumonia) (Resolved) Acute respiratory insufficiency (Resolved) DVT (deep venous thrombosis) (Resolved) History of diverticulitis of colon (Resolved) lower abdominal pain, CT scan consistent with diverticulitis complicated by pneumaturia suggestive of colovesical fistula I recommend the patient maintained on IV antibiotics. As his white count normalizes abdominal pain improves we may advance his diet. At this point I would plan for once the acute infection is gone in a few weeks plan for a barium enema and x-raying his urine to assess for barium in his urine which would be diagnostic of it colovesical fistula. Would then expect we would talk about sigmoid resection and probably 6-8 weeks. I discussed with the patient in addition to standard sigmoid resection this would involve removal of small amount of the wall of the bladder closure bladder and typically a Deleon catheter placed per week. Patient a previous history of hyperglycemia. His blood glucoses 178. hemoglobin A1c bis improved from his previous now 6.9.. patient did state he has had episodes earlier in the spring and last winter of some chest pain with exertion. Patient has risk factors for coronary disease and has not had stress test her EKG for some time. Would either like to have the studies obtained this hospitalization or may be obtained as an outpatient prior to surgical intervention.
--- NOTE | 2019-08-07 15:00 | CHAPLAIN ---
patient is out of the room
[2019-08-07] MEDS: Insulin Lispro 100 UNIT/ML INSULN.PEN SC ×2 (15:35→21:28)
[2019-08-07 15:40] VITALS: BP 110/65; PULSE 72; RESP 16; TEMP 36.7; O2SAT 100
[2019-08-07 15:46] LABS: Bedside Glucose 171 mg/dL (70-110)
[2019-08-07 20:44] VITALS: BP 146/76; PULSE 82; RESP 20; TEMP 37.5; O2SAT 97
[2019-08-07 21:00] VITALS: O2SAT 97
[2019-08-07] MEDS: Atorvastatin Calcium 40 MG Tablet PO (21:22)
[2019-08-07 22:15] LABS: Bedside Glucose 169 mg/dL (70-110)
[2019-08-08] MEDS: 0.9% Normal Saline 1,000 ML 125 ML IV ×3 (00:02→17:30)
[2019-08-08 02:45] VITALS: BP 132/87; PULSE 62; RESP 20; TEMP 36.2; O2SAT 99
--- NOTE | 2019-08-08 05:59 | PN.SURG_ITS ---
Patient Problems: Active and Suspected Problems Diverticulitis of sigmoid colon (Acute) Enterovesical fistula (Acute) Acute peritonitis (Acute) Abdominal pain (Acute) Subjective: loose stools and lower abdominal cramping - Physical Exam Vitals/I&O's: Vital Signs Temp Pulse Resp BP Pulse Ox 99.5 F H 82 20 H 146/76 H 97 08/07/19 20:44 08/07/19 20:44 08/07/19 20:44 08/07/19 20:44 08/07/19 21:00 Oxygen Flow Rate (L/min) 2 Oxygen Delivery Method Bi-pap Weight: 147.9 kg Body Mass Index (BMI) 48.1 Intake and Output for Last 24 Hours 08/06/19 08/07/19 08/08/19 23:59 23:59 23:59 Intake Total 1640.25 / 1640.25 5168.50 / 5168.50 50 / 50 Output Total 1325 / 1325 1200 / 1200 Balance 315.25 / 315.25 3968.50 / 3968.50 50 / 50 General: Alert, Oriented x3, Cooperative Lungs: Clear to auscultation, Normal air movement Cardiovascular: Regular rate, No murmurs Abdomen: Bowel Sounds Present, Soft, Non Tender Laboratory Results 08/07/19 05:56: WBC 9.3, RBC 5.09, Hgb 14.0, Hct 42.6, MCV 83.7, MCH 27.5, MCHC 32.9, RDW Std Deviation 42.3, RDW Coeff of Nai 13.9, Plt Count 172, MPV 12.6 H, Immature Gran % (Auto) 0.400, Neut % (Auto) 70.6 H, Lymph % (Auto) 15.9 L, [place] % (Auto) 9.7, Eos % (Auto) 3.0, Baso % (Auto) 0.4, Absolute Neuts (auto) 6.5, Absolute Lymphs (auto) 1.47, Nucleated RBC % 0 08/07/19 05:56: Hemoglobin A1c 6.9 H 08/07/19 11:58: POC Glucose 140 H 08/07/19 15:34: POC Glucose 171 H 08/07/19 21:27: POC Glucose 169 H Current Medications Acetaminophen (Tylenol) 650 mg PO Q6H PRN PRN PRN Reason: Mild Pain (1-3)/Temp > 100.7 F Hydrocodone Bitart/Acetaminophen ([place] 5mg-325mg) 2 tablet PO Q6H PRN PRN PRN Reason: Moderate Pain (4-6/10) Last Admin: 08/07/19 19:46 Dose: 2 tablet Documented by: Albuterol Sulfate (Ventolin Aerosols) 2.5 mg INHALATION Q4H PRN PRN Reason: COUGH/WHEEZE Last Admin: 08/06/19 22:40 Dose: 2.5 mg Documented by: Atorvastatin Calcium (Lipitor) 40 mg PO QHS [facility] Last Admin: 08/07/19 21:22 Dose: 40 mg Documented by: Citalopram Hydrobromide (Celexa) 30 mg PO DAILY [facility] Last Admin: 08/07/19 10:27 Dose: 30 mg Documented by: Dextrose (D50w Syringe) 0 gm IV X1 PRN; Protocol PRN Reason: Hypoglycemia Glimepiride (Amaryl) 2 mg PO DAILYCM [facility] Last Admin: 08/07/19 10:27 Dose: 2 mg Documented by: Glucagon () 1 mg IM .X1 PRN PRN Reason: Hypoglycemia Heparin Sodium (Porcine) (Heparin Na) 5,000 unit SC Q12 [facility] Last Admin: 08/07/19 21:22 Dose: 5,000 unit Documented by: Sodium Chloride () 1,000 mls @ 125 mls/hr IV .Q8H [facility] Last Admin: 08/08/19 00:02 Dose: 125 mls/hr Documented by: Piperacillin Sod/Tazobactam (Sod 3.375 gm/ Sodium Chloride) 50 mls @ 12.5 mls/hr IV Q8 [facility] Last Infusion: 08/08/19 02:30 Dose: Infused Documented by: Metronidazole (Flagyl) 500 mg in 100 mls @ 100 mls/hr IV Q8 [facility] Last Infusion: 08/07/19 22:22 Dose: Infused Documented by: Sodium Chloride () 250 mls @ 15 mls/hr IV .[id number] PRN PRN Reason: Saline Flush Last Infusion: 08/07/19 17:40 Dose: 15 mls/hr Documented by: Insulin Human Lispro (Humalog Kwikpen (Bkc)) 0 unit SC ACHS [facility]; Protocol Last Admin: 08/07/19 21:28 Dose: 3 units Documented by: Lisinopril (Zestril) 10 mg PO DAILY [facility] Last Admin: 08/07/19 10:26 Dose: 10 mg Documented by: Morphine Sulfate () 4 mg IV Q3H PRN PRN PRN Reason: Severe pain (7-10/10) Ondansetron HCl (Zofran) 4 mg IV Q8H PRN PRN PRN Reason: NAUSEA/VOMITING Pantoprazole Sodium (Protonix) 40 mg PO DAILY [facility] Last Admin: 08/07/19 10:28 Dose: 40 mg Documented by: Sodium Chloride () 5 - 15 ml IV UD PRN PRN Reason: SALINE FLUSH Medical Necessity - Tobacco Use Smoking Status: Former smoker Tobacco Use: Non-smoker Assessment/Plan All Active Problems Diverticulitis of sigmoid colon (Acute) Enterovesical fistula (Acute) Acute peritonitis (Acute) Hydrocele in adult (Resolved) Abdominal pain (Acute) Asthma exacerbation (Resolved) Acute exacerbation of COPD with asthma (Resolved) Viral URI (Resolved) Acute exacerbation of chronic obstructive pulmonary disease (COPD) (Resolved) CAP (community acquired pneumonia) (Resolved) Acute respiratory insufficiency (Resolved) DVT (deep venous thrombosis) (Resolved) History of diverticulitis of colon (Resolved) lower abdominal pain, CT scan consistent with diverticulitis complicated by pne umaturia suggestive of colovesical fistula I recommend the patient maintained on IV antibiotics. As his white count normalizes abdominal pain improves we may advance his diet. At this point I would plan for once the acute infection is gone in a few weeks plan for a barium enema and x-raying his urine to assess for barium in his urine which would be diagnostic of it colovesical fistula. Would then expect we would talk about sigmoid resection and probably 6-8 weeks. I discussed with the patient in addition to standard sigmoid resection this would involve removal of small amount of the wall of the bladder closure bladder and typically a Deleon catheter placed per week. OK for patient to be on low residue diet. If WBC count still normal Ok to transition to orals and discharge. Patient a previous history of hyperglycemia. His blood glucoses 178. hemoglobin A1c bis improved from his previous now 6.9. patient did state he has had episodes earlier in the spring and last winter of some chest pain with exertion. Patient has risk factors for coronary disease and has not had stress test her EKG for some time. Would either like to have the studies obtained this hospitalization or may be obtained as an outpatient prior to surgical intervention.
[2019-08-08] MEDS: metroNIDAZOLE 500 MG/100 ML BAG 100 MG IV ×3 (06:04→22:16)
[2019-08-08] MEDS: Insulin Lispro 100 UNIT/ML INSULN.PEN SC (06:14)
[2019-08-08 06:31] LABS: Bedside Glucose 152 mg/dL (70-110)
--- NOTE | 2019-08-08 07:24 | PCM.PN.HOSP ---
Patient Problems: Active and Suspected Problems Diverticulitis of sigmoid colon (Acute) Enterovesical fistula (Acute) Acute peritonitis (Acute) Abdominal pain (Acute) Subjective: CC follow-up acute sigmoid diverticulitis Patient seen complains of intermittent lower abdominal pain. Also complains of having experienced several loose bowel movement. Patient was placing enteric precautions and subsequently ordered stool for C. difficile. Objective: GENERAL: cooperative HEENT: Atraumatic; EYES; Anicteric, Normal Conjunctiva NECK; supple, normal thyroid, RESPIRATORY: Diminished to auscultation CARDIOVASCULAR: Regular S1 S2, GI: soft, normoactive bowel sounds, : No Renal angle tenderness; EXTREMITIES: No edema, no clubbing, MUSCULOSKELETAL: no muscle waisting NEURO: Awake; no lateralizing signs. SKIN: No Rash PSYCH; Flat affect Vitals/I&O's: Vital Signs Temp Pulse Resp BP Pulse Ox 97.2 F L 62 20 H 132/87 H 99 08/08/19 02:45 08/08/19 02:45 08/08/19 02:45 08/08/19 02:45 08/08/19 02:45 Oxygen Flow Rate (L/min) 2 Oxygen Delivery Method Room Air Weight: 147.9 kg Body Mass Index (BMI) 48.1 Intake and Output for Last 24 Hours 08/06/19 08/07/19 08/08/19 23:59 23:59 23:59 Intake Total 1640.25 / 1640.25 5168.50 / 5468.50 750 / 750 Output Total 1325 / 1325 1200 / 1900 1200 / 1200 Balance 315.25 / 315.25 3968.50 / 3568.50 -450 / -450 Laboratory Results 08/07/19 05:56: Hemoglobin A1c 6.9 H 08/07/19 11:58: POC Glucose 140 H 08/07/19 15:34: POC Glucose 171 H 08/07/19 21:27: POC Glucose 169 H 08/08/19 06:13: POC Glucose 152 H Current Medications Acetaminophen (Tylenol) 650 mg PO Q6H PRN PRN PRN Reason: Mild Pain (1-3)/Temp > 100.7 F Hydrocodone Bitart/Acetaminophen ([place] 5mg-325mg) 2 tablet PO Q6H PRN PRN PRN Reason: Moderate Pain (4-6/10) Last Admin: 08/07/19 19:46 Dose: 2 tablet Documented by: Albuterol Sulfate (Ventolin Aerosols) 2.5 mg INHALATION Q4H PRN PRN Reason: COUGH/WHEEZE Last Admin: 08/06/19 22:40 Dose: 2.5 mg Documented by: Atorvastatin Calcium (Lipitor) 40 mg PO QHS [facility] Last Admin: 08/07/19 21:22 Dose: 40 mg Documented by: Citalopram Hydrobromide (Celexa) 30 mg PO DAILY [facility] Last Admin: 08/07/19 10:27 Dose: 30 mg Documented by: Dextrose (D50w Syringe) 0 gm IV X1 PRN; Protocol PRN Reason: Hypoglycemia Glimepiride (Amaryl) 2 mg PO DAILYCM [facility] Last Admin: 08/07/19 10:27 Dose: 2 mg Documented by: Glucagon () 1 mg IM .X1 PRN PRN Reason: Hypoglycemia Heparin Sodium (Porcine) (Heparin Na) 5,000 unit SC Q12 [facility] Last Admin: 08/07/19 21:22 Dose: 5,000 unit Documented by: Sodium Chloride () 1,000 mls @ 125 mls/hr IV .Q8H [facility] Last Admin: 08/08/19 00:02 Dose: 125 mls/hr Documented by: Piperacillin Sod/Tazobactam (Sod 3.375 gm/ Sodium Chloride) 50 mls @ 12.5 mls/hr IV Q8 [facility] Last Admin: 08/08/19 06:04 Dose: 12.5 mls/hr Documented by: Metronidazole (Flagyl) 500 mg in 100 mls @ 100 mls/hr IV Q8 [facility] Last Admin: 08/08/19 06:04 Dose: 100 mls/hr Documented by: Sodium Chloride () 250 mls @ 15 mls/hr IV .[id number] PRN PRN Reason: Saline Flush Last Infusion: 08/07/19 17:40 Dose: 15 mls/hr Documented by: Insulin Human Lispro (Humalog Kwikpen (Bkc)) 0 unit SC ACHS [facility]; Protocol Last Admin: 08/08/19 06:14 Dose: 3 units Documented by: Lisinopril (Zestril) 10 mg PO DAILY [facility] Last Admin: 08/07/19 10:26 Dose: 10 mg Documented by: Morphine Sulfate () 4 mg IV Q3H PRN PRN PRN Reason: Severe pain (7-07/26) Ondansetron HCl (Zofran) 4 mg IV Q8H PRN PRN PRN Reason: NAUSEA/VOMITING Pantoprazole Sodium (Protonix) 40 mg PO DAILY [facility] Last Admin: 08/07/19 10:28 Dose: 40 mg Documented by: Sodium Chloride () 5 - 15 ml IV UD PRN PRN Reason: SALINE FLUSH Medical Necessity - Tobacco Use Smoking Status: Former smoker Tobacco Use: Non-smoker Assessment/Plan All Active Problems Diverticulitis of sigmoid colon (Acute) Enterovesical fistula (Acute) Acute peritonitis (Acute) Hydrocele in adult (Resolved) Abdominal pain (Acute) Asthma exacerbation (Resolved) Acute exacerbation of COPD with asthma (Resolved) Viral URI (Resolved) Acute exacerbation of chronic obstructive pulmonary disease (COPD) (Resolved) CAP (community acquired pneumonia) (Resolved) Acute respiratory insufficiency (Resolved) DVT (deep venous thrombosis) (Resolved) History of diverticulitis of colon (Resolved) Patient is a 49-year-old gentleman who presented with abdominal pain and difficulty with urination. Imaging studies obtained on admission demonstrated findings consistent with acute sigmoid diverticulitis as well as possible colovesicular fistula admitted to regular nursing for further management 1. Acute sigmoid diverticulitis ~ admitted to regular nursing floor where patient is currently being managed with antibiotics Zosyn, low residue diet and consultation placed to general surgery ?08/08/2019:Patient seen complains of intermittent lower abdominal pain. Also complains of having experienced several loose bowel movement. Patient was placing enteric precautions and subsequently ordered stool for C. difficile. 2. Possible colovesicular fistula ~ Admitted to regular nursing floor consult placed to general surgery definitive; patient was seen by Dr. Grace's plan is for patient to undergo barium enema and x-raying his urine to assess for barium in his urine which would be diagnostic of it colovesical fistula 3. COPD ~ Currently not in exacerbation aerosol treatments as needed 4. Diabetes mellitus type II ~ Controlled patient's oral hypoglycemics held. Placed on long acting insulin, Accu-Cheks a.c. and at bedtime and covered with sliding scale insulin 5. Morbid obesity ~ With BMI of 46.8 weight loss advised 6. Dyslipidemia ~patient is on statin therapy, continued at home dose 7. Hypertension ~ blood pressure controlled, home medications continued with dose adjustment as needed 8. DVT prophylaxis ~SC heparin Code Visit Inpatient E&M: 63702 Subs Hosp L2
[2019-08-08 08:04] LABS: Absolute Lymphocyte Count 1.31 X10^3/uL (0.83-4.51); Absolute Neutrophil Count 3.1 X10^3/uL (2.0-7.7); Basophil# 0.03 X10^3/uL; Basophil% 0.6 % (0-1); Eosinophil# 0.24 X10^3/uL; Eosinophils% 4.4 % (0-5); Hematocrit 42.4 % (40-54); Lymphocyte # 1.31 X10^3/ul (4.0); Lymphocyte % 24.3 % (19-41); Mean Corpuscular Hgb 27.6 pg (27.0-32.0); Mean Corpuscular Volume 83.5 fL (80-94); Mean Platelet Vol. 10.3 fl (6.2-12.0); Monocyte# 0.68 X10^3/uL; Monocyte% 12.6 % (0-10); NRBC Flagged by Analyzer 0 % (0-5); Neutrophil # 3.11 X10^3/uL (2.7-7.7); Neutrophil % 57.5 % (47-70); Platelet Count 157 K/mm3 (150-450); RBC Distribution Width CV 13.8 % (11.6-14.6); RBC Distribution Width SD 41.8 fl (35.1-43.9); Red Blood Count 5.08 M/mm3 (4.6-6.2); White Blood Count 5.4 K/mm3 (4.4-11.0)
[2019-08-08] MEDS: Pantoprazole Sodium 40 MG Tablet PO (08:24)
[2019-08-08] MEDS: Citalopram 20 MG Tablet 30 MG PO (08:24)
[2019-08-08] MEDS: Glimepiride 2 MG Tablet PO (08:25)
[2019-08-08] MEDS: Lisinopril 10 MG Tablet PO (08:25)
[2019-08-08] MEDS: Heparin Injection (Vial) 5,000 UNIT/ML VIAL 5000 UNIT SC ×2 (08:26→22:17)
[2019-08-08 08:27] LABS: Anion Gap 7 (5-15); BUN 7 mg/dL (7-18); BUN/Creat Ratio 11.1 RATIO (10-20); Calcium,Total 8.6 mg/dL (8.5-10.1); Chloride 107 mmol/L (98-107); Creatinine, Serum 0.63 mg/dL (0.70-1.30); EST Glomerular Filtration Rate 142 mL/min (>60); Est Glom Filt Rate - Afr Amer 172 mL/min (>60); Estimated Creatinine Clearance 143.23 ml/min; Glucose 156 mg/dL (74-106); Potassium 3.9 mmol/L (3.5-5.1); Sodium Level 136 mmol/L (136-145)
[2019-08-08 08:30] VITALS: BP 133/78; PULSE 66; RESP 16; TEMP 36.6; O2SAT 99
[2019-08-08 11:40] VITALS: BP 133/82; PULSE 67; RESP 16; TEMP 36.6; O2SAT 99
[2019-08-08 11:40] LABS: Bedside Glucose 143 mg/dL (70-110)
--- NOTE | 2019-08-08 14:43 | CHAPLAIN ---
Type of Pastoral Visit _x__ Initial Visit ___ Follow-up Visit ___ On-call Visit ___ General Patient Visit ___ Spiritual Assessment ___ Family Conference ___ Bereavement ___ Rapid Response ___ Code Blue ___ Other (describe below) Pastoral Care Referral From _x__ Patient ___ Family ___ Nurse ___ Physician ___ Range Management Specialist ___ Supervisor [employer] ___ Other (describe below) Sacrament/Intervention _x__ Active listening ___ Anointing ___ Anabaptism ___ Bereavement ___ Communion _x__ Fernanda exploration ___ _x__ Life review _x__ Prayer ___ Reconciliation ___ Sacrament of Sick _x__ Supportive presence ___ Wedding ___ Other (describe below) Pastoral Comments
[2019-08-08 14:56] VITALS: BP 127/75; PULSE 71; RESP 16; TEMP 36.6; O2SAT 99
[2019-08-08 16:35] LABS: Bedside Glucose 146 mg/dL (70-110)
[2019-08-08] MEDS: HYDROcodone Bitartrate/Apap 5/325 Tablet PO (17:31)
[2019-08-08 20:17] VITALS: BP 119/71; PULSE 60; RESP 18; TEMP 36.7; O2SAT 99
[2019-08-08] MEDS: Atorvastatin Calcium 40 MG Tablet PO (22:17)
[2019-08-08 22:25] LABS: Bedside Glucose 150 mg/dL (70-110)
[2019-08-09 02:20] VITALS: BP 127/55; PULSE 55; RESP 18; TEMP 36.4; O2SAT 100
[2019-08-09] MEDS: 0.9% Normal Saline 1,000 ML 125 ML IV (02:20)
[2019-08-09] MEDS: metroNIDAZOLE 500 MG/100 ML BAG 100 MG IV (05:47)
[2019-08-09] MEDS: Insulin Lispro 100 UNIT/ML INSULN.PEN SC (06:39)
[2019-08-09 06:45] LABS: Bedside Glucose 152 mg/dL (70-110)
[2019-08-09 06:52] LABS: Absolute Lymphocyte Count 1.51 X10^3/uL (0.83-4.51); Absolute Neutrophil Count 2.6 X10^3/uL (2.0-7.7); Basophil# 0.03 X10^3/uL; Basophil% 0.6 % (0-1); Eosinophil# 0.33 X10^3/uL; Eosinophils% 6.5 % (0-5); Hematocrit 41.3 % (40-54); Hemoglobin 13.2 g/dL (13.0-16.5); Lymphocyte # 1.51 X10^3/ul (4.0); Lymphocyte % 29.6 % (19-41); Mean Corpuscular Volume 84.5 fL (80-94); Mean Platelet Vol. 10.8 fl (6.2-12.0); Monocyte% 11.8 % (0-10); NRBC Flagged by Analyzer 0 % (0-5); Neutrophil # 2.61 X10^3/uL (2.7-7.7); Neutrophil % 51.1 % (47-70); Platelet Count 147 K/mm3 (150-450); RBC Distribution Width CV 14.3 % (11.6-14.6); RBC Distribution Width SD 43.8 fl (35.1-43.9); Red Blood Count 4.89 M/mm3 (4.6-6.2); White Blood Count 5.1 K/mm3 (4.4-11.0)
[2019-08-09 07:09] LABS: Anion Gap 4 (5-15); BUN 7 mg/dL (7-18); BUN/Creat Ratio 10.8 RATIO (10-20); Calcium,Total 8.6 mg/dL (8.5-10.1); Chloride 108 mmol/L (98-107); Creatinine, Serum 0.65 mg/dL (0.70-1.30); EST Glomerular Filtration Rate 138 mL/min (>60); Est Glom Filt Rate - Afr Amer 167 mL/min (>60); Estimated Creatinine Clearance 138.82 ml/min; Glucose 147 mg/dL (74-106); Sodium Level 138 mmol/L (136-145)
--- NOTE | 2019-08-09 08:17 | PCM.DC ---
- Discharge Diagnoses Current Active Problems: Current Active and Chronic Problems Diverticulitis of sigmoid colon (Acute) Enterovesical fistula (Acute) Acute peritonitis (Acute) Abdominal pain (Acute) You will use the following diet at home:: Calorie/Carbohydrate Controlled (specify 1200, 1400, etc) - 1800 Your food should be the consistency of: Regular Discharge Activity: Return to Normal Activity Allergies/Adverse Reactions: Allergies No Known Allergies Allergy (Verified 08/06/19 10:01) Medications to take at Discharge Albuterol Aerosols [Ventolin Aerosols] 2.5 mg INHALATION Q6H PRN PRN 01/03/16 Atorvastatin Calcium [Lipitor] 40 mg PO QHS 01/03/16 Citalopram [Celexa] 30 mg PO DAILY 01/03/16 Glimepiride [Amaryl] 2 mg PO DAILY 01/03/16 Lisinopril [Zestril] 10 mg PO DAILY 01/03/16 Loratadine [Claritin] 10 mg PO DAILY PRN PRN 01/03/16 Guaifenesin [Mucinex] 600 mg PO BID PRN PRN 01/15/16 Fluticasone/Vilanterol [Breo Ellipta 100-25 Mcg INH] 1 each IH DAILY #1 aer.pow.ba 05/25/16 Albuterol Inhaler [Ventolin Hfa] 2 puff INHALATION Q2H PRN PRN #0 11/20/16 Insulin Detemir [Levemir FlexPen] 50 units SUBCUT QHS 08/06/19 Metformin HCl [Metformin HCl ER] 500 mg PO BID 08/06/19 Omeprazole 40 mg PO BID 08/06/19 Ciprofloxacin [Cipro] 500 mg PO BID #10 tab 08/09/19 metroNIDAZOLE [Flagyl] 500 mg PO Q8H #15 tab 08/09/19 The following prescriptions were given: Ciprofloxacin [Cipro] 500 mg PO BID #10 tab Transmission Status: Pending to [facility] metroNIDAZOLE [Flagyl] 500 mg PO Q8H #15 tab Transmission Status: Pending to [facility] Primary Care Physician: Gerardo Borrego MD [Primary Care Provider] - Please follow up with your Primary Care Physician in: in 5-7 days Test Results: Test results from this visit will be discussed in further detail at your follow-up appointment, if applicable. Please Follow Up With: Danial Velazquez MD When: in 5-7 days Proposed Discharge Date: 08/09/19
--- NOTE | 2019-08-09 08:19 | PCM.WORK.EX ---
Work/School Excuse Work/School Excuse for:: Patient Please excuse this person from:: Work From: 08/06/19 through: 08/12/19
--- NOTE | 2019-08-09 08:19 | PCM.DC.SUM ---
Discharge Date and Diagnosis - Problem List Patient Problems: Active and Suspected Problems Diverticulitis of sigmoid colon (Acute) Enterovesical fistula (Suspected) Abdominal pain (Acute) Date of Admission: 08/06/19 Date of Discharge: 08/09/19 - Primary Discharge Diagnosis Active and Suspected Problems Diverticulitis of sigmoid colon (Acute) Enterovesical fistula (Suspected) Abdominal pain (Acute) - Secondary Discharge Diagnosis Chronic Problems Morbid obesity with body mass index of 50.0-59.9 in adult (Chronic) Asthma (Chronic) GERD (gastroesophageal reflux disease) (Chronic) Hypertension (Chronic) Type II diabetes mellitus (Chronic) CATY (obstructive sleep apnea) (Chronic) bipap at night possible copd (Chronic) Type 2 diabetes mellitus with hyperglycemia (Chronic) Morbid obesity with BMI of 45.0-49.9, adult (Chronic) History of diverticulosis (Chronic) Hyperlipidemia (Chronic) COPD exacerbation (Chronic) Hospital Course and Treatment Imaging Results: Clinical Impression(s) from Imaging Studies Abdomen/Pelvis CT 08/06/19 10:19 IMPRESSION: Findings in keeping with acute sigmoid diverticulitis and possible colovesical fistula. Fatty infiltration of the liver. Sludge or tiny gallstones noted within the gallbladder. Electronically Signed: Puneet Patti, at 12:56 EDT , Service support , Operations: None Summary of Care Provided: Patient is a 49-year-old gentleman who presented with abdominal pain and difficulty with urination. Imaging studies obtained on admission demonstrated findings consistent with acute sigmoid diverticulitis as well as possible colovesicular fistula admitted to regular nursing for further management 1. Acute sigmoid diverticulitis ~ admitted to regular nursing floor where patient is currently being managed with antibiotics Zosyn, low residue diet and consultation placed to general surgery Patient did improve with antibiotic treatment discharged 3 days after his admission. Stool for C. difficile obtained as a result of diarrhea came back negative 2. Possible colovesicular fistula ~ Admitted to regular nursing floor consult placed to general surgery definitive; patient was seen by Dr. Grace's plan is for patient to undergo barium enema and x-raying his urine to assess for barium in his urine which would be diagnostic of colovesical fistula (the barium studies to be performed as outpatient. Patient was subsequently instructed to follow-up with Dr. Velazquez in 5 to 7 days) 3. COPD ~ not in exacerbation aerosol treatments as needed 4. Diabetes mellitus type II ~ Controlled patient's oral hypoglycemics held. Placed on long acting insulin, Accu-Cheks a.c. and at bedtime and covered with sliding scale insulin 5. Morbid obesity ~ With BMI of 46.8 weight loss advised 6. Dyslipidemia ~patient is on statin therapy, continued at home dose 7. Hypertension ~ blood pressure controlled, home medications continued with dose adjustment as needed 8. DVT prophylaxis ~SC heparin Patient Problems: Active and Suspected Problems Diverticulitis of sigmoid colon (Acute) Enterovesical fistula (Suspected) Abdominal pain (Acute) Objective: GENERAL: cooperative HEENT: Atraumatic; EYES; Anicteric, Normal Conjunctiva NECK; supple, normal thyroid, RESPIRATORY: Diminished to auscultation CARDIOVASCULAR: Regular S1 S2, GI: soft, normoactive bowel sounds, : No Renal angle tenderness; EXTREMITIES: No edema, no clubbing, MUSCULOSKELETAL: no muscle waisting NEURO: Awake; no lateralizing signs. SKIN: No Rash PSYCH; Flat affect - Physical Exam Vitals/I&O's: Vital Signs Temp Pulse Resp BP Pulse Ox 97.5 F L 55 L 18 127/55 H 100 08/09/19 02:20 08/09/19 02:20 08/09/19 02:20 08/09/19 02:20 08/09/19 02:20 Oxygen Flow Rate (L/min) 2 Oxygen Delivery Method Room Air Weight: 147.9 kg Body Mass Index (BMI) 48.1 Intake and Output for Last 24 Hours 08/07/19 08/08/19 08/09/19 23:59 23:59 23:59 Intake Total 5168.50 / 5468.50 4541.67 / 4541.67 966.66 / 966.66 Output Total 1200 / 1900 2850 / 2850 1400 / 1400 Balance 3968.50 / 3568.50 1691.67 / 1691.67 -433.34 / -433.34 Microbiology Past 72 Hours 08/08/19 08:40 Stool C. difficile DNA Amplification - Final Laboratory Results 08/08/19 07:50: Sodium 136, Potassium 3.9, Chloride 107, Carbon Dioxide 22.0, Anion Gap 7, BUN 7, Creatinine 0.63 L, Estim Creat Clear Calc 143.23, Est GFR (MDRD) Af Amer 172, Est GFR (MDRD) Non-Af 142, BUN/Creatinine Ratio 11.1, Glucose 156 H, Calcium 8.6, Magnesium 2.0 08/08/19 11:07: POC Glucose 143 H 08/08/19 16:29: POC Glucose 146 H 08/08/19 22:15: POC Glucose 150 H 08/09/19 06:06: WBC 5.1, RBC 4.89, Hgb 13.2, Hct 41.3, MCV 84.5, MCH 27.0, MCHC 32.0, RDW Std Deviation 43.8, RDW Coeff of Nai 14.3, Plt Count 147 L, MPV 10.8, Immature Gran % (Auto) 0.400, Neut % (Auto) 51.1, Lymph % (Auto) 29.6, [place] % (Auto) 11.8 H, Eos % (Auto) 6.5 H, Baso % (Auto) 0.6, Absolute Neuts (auto) 2.6, Absolute Lymphs (auto) 1.51, Nucleated RBC % 0 08/09/19 06:06: Sodium 138, Potassium 4.0, Chloride 108 H, Carbon Dioxide 26.0, Anion Gap 4 L, BUN 7, Creatinine 0.65 L, Estim Creat Clear Calc 138.82, Est GFR (MDRD) Af Amer 167, Est GFR (MDRD) Non-Af 138, BUN/Creatinine Ratio 10.8, Glucose 147 H, Calcium 8.6 08/09/19 06:38: POC Glucose 152 H Current Medications Acetaminophen (Tylenol) 650 mg PO Q6H PRN PRN PRN Reason: Mild Pain (1-3)/Temp > 100.7 F Hydrocodone Bitart/Acetaminophen ([place] 5mg-325mg) 2 tablet PO Q6H PRN PRN PRN Reason: Moderate Pain (4-6/10) Last Admin: 08/08/19 17:31 Dose: 2 tablet Documented by: Albuterol Sulfate (Ventolin Aerosols) 2.5 mg INHALATION Q4H PRN PRN Reason: COUGH/WHEEZE Last Admin: 08/06/19 22:40 Dose: 2.5 mg Documented by: Atorvastatin Calcium (Lipitor) 40 mg PO QHS [facility] Last Admin: 08/08/19 22:17 Dose: 40 mg Documented by: Citalopram Hydrobromide (Celexa) 30 mg PO DAILY [facility] Last Admin: 08/08/19 08:24 Dose: 30 mg Documented by: Dextrose (D50w Syringe) 0 gm IV X1 PRN; Protocol PRN Reason: Hypoglycemia Glimepiride (Amaryl) 2 mg PO DAILYCM [facility] Last Admin: 08/08/19 08:25 Dose: 2 mg Documented by: Glucagon () 1 mg IM .X1 PRN PRN Reason: Hypoglycemia Heparin Sodium (Porcine) (Heparin Na) 5,000 unit SC Q12 [facility] Last Admin: 08/08/19 22:17 Dose: 5,000 unit Documented by: Sodium Chloride () 1,000 mls @ 125 mls/hr IV .Q8H [facility] Last Infusion: 08/09/19 05:48 Dose: 0 mls/hr Documented by: Piperacillin Sod/Tazobactam (Sod 3.375 gm/ Sodium Chloride) 50 mls @ 12.5 mls/hr IV Q8 [facility] Last Admin: 08/09/19 05:48 Dose: 12.5 mls/hr Documented by: Metronidazole (Flagyl) 500 mg in 100 mls @ 100 mls/hr IV Q8 [facility] Last Infusion: 08/09/19 06:47 Dose: Infused Documented by: Sodium Chloride () 250 mls @ 15 mls/hr IV .[id number] PRN PRN Reason: Saline Flush Last Infusion: 08/08/19 08:42 Dose: Infused Documented by: Insulin Human Lispro (Humalog Kwikpen (Bkc)) 0 unit SC ACHS [facility]; Protocol Last Admin: 08/09/19 06:39 Dose: 3 units Documented by: Lisinopril (Zestril) 10 mg PO DAILY [facility] Last Admin: 08/08/19 08:25 Dose: 10 mg Documented by: Morphine Sulfate () 4 mg IV Q3H PRN PRN PRN Reason: Severe pain (7-10/10) Ondansetron HCl (Zofran) 4 mg IV Q8H PRN PRN PRN Reason: NAUSEA/VOMITING Pantoprazole Sodium (Protonix) 40 mg PO DAILY [facility] Last Admin: 08/08/19 08:24 Dose: 40 mg Documented by: Sodium Chloride () 5 - 15 ml IV UD PRN PRN Reason: SALINE FLUSH Discharge Diet: 1800 Calorie Control Diet Discharge Activity: Return to Normal Activity Home Medications: Medications to take at Discharge Albuterol Aerosols [Ventolin Aerosols] 2.5 mg INHALATION Q6H PRN PRN 01/03/16 Atorvastatin Calcium [Lipitor] 40 mg PO QHS 01/03/16 Citalopram [Celexa] 30 mg PO DAILY 01/03/16 Glimepiride [Amaryl] 2 mg PO DAILY 01/03/16 Lisinopril [Zestril] 10 mg PO DAILY 01/03/16 Loratadine [Claritin] 10 mg PO DAILY PRN PRN 01/03/16 Guaifenesin [Mucinex] 600 mg PO BID PRN PRN 01/15/16 Fluticasone/Vilanterol [Breo Ellipta 100-25 Mcg INH] 1 each IH DAILY #1 aer.pow.ba 05/25/16 Albuterol Inhaler [Ventolin Hfa] 2 puff INHALATION Q2H PRN PRN #0 11/20/16 Insulin Detemir [Levemir FlexPen] 50 units SUBCUT QHS 08/06/19 Metformin HCl [Metformin HCl ER] 500 mg PO BID 08/06/19 Omeprazole 40 mg PO BID 08/06/19 Ciprofloxacin [Cipro] 500 mg PO BID #10 tab 08/09/19 metroNIDAZOLE [Flagyl] 500 mg PO Q8H #15 tab 08/09/19 Following Prescrptions Were Given to Patient: Ciprofloxacin [Cipro] 500 mg PO BID #10 tab Transmission Status: Pending to [facility] metroNIDAZOLE [Flagyl] 500 mg PO Q8H #15 tab Transmission Status: Pending to [facility] Primary Care Physician: Gerardo Borrego MD [Primary Care Provider] - Please follow up with your Primary Care Physician in: in 5-7 days Please Follow Up With: Dnaial Velazquez MD When: in 5-7 days Disposition: Home Minutes spent on discharge:: 35 Patient Condition:: Stable Medical Necessity - Tobacco Use Smoking Status: Former smoker Tobacco Use: Non-smoker Meaningful Use Info Meaningful Use Diagnoses (Choose all that apply): None applicable Code Visit Inpatient E&M: 11351 Disch Hosp
[2019-08-09] MEDS: Glimepiride 2 MG Tablet PO (08:52)
[2019-08-09] MEDS: Citalopram 20 MG Tablet 30 MG PO (08:53)
[2019-08-09] MEDS: Pantoprazole Sodium 40 MG Tablet PO (08:54)
[2019-08-09] MEDS: Heparin Injection (Vial) 5,000 UNIT/ML VIAL 5000 UNIT SC (08:54)
[2019-08-09] MEDS: Lisinopril 10 MG Tablet PO (08:55)
[2019-08-09 09:15] VITALS: BP 118/75; PULSE 65; RESP 16; TEMP 36.7; O2SAT 99
--- NOTE | 2019-08-09 19:37 | PN.SURG_ITS ---
Subjective: pain improved, still loose stools - Physical Exam Vitals/I&O's: Vital Signs Temp Pulse Resp BP Pulse Ox 98.1 F 65 16 118/75 99 08/09/19 09:15 08/09/19 09:15 08/09/19 09:15 08/09/19 09:15 08/09/19 09:15 Oxygen Flow Rate (L/min) 2 Oxygen Delivery Method Room Air Weight: 147.9 kg Body Mass Index (BMI) 48.1 Intake and Output for Last 24 Hours 08/07/19 08/08/19 08/09/19 23:59 23:59 23:59 Intake Total 5168.50 / 5468.50 4541.67 / 4541.67 1016.66 / 1016.66 Output Total 1200 / 1900 2850 / 2850 1400 / 1400 Balance 3968.50 / 3568.50 1691.67 / 1691.67 -383.34 / -383.34 General: Alert, Oriented x3, Cooperative Lungs: Clear to auscultation, Normal air movement Cardiovascular: Regular rate, No murmurs Abdomen: Bowel Sounds Present, Soft, Non Tender Microbiology Past 72 Hours 08/08/19 08:40 Stool C. difficile DNA Amplification - Final Laboratory Results 08/08/19 22:15: POC Glucose 150 H 08/09/19 06:06: WBC 5.1, RBC 4.89, Hgb 13.2, Hct 41.3, MCV 84.5, MCH 27.0, MCHC 32.0, RDW Std Deviation 43.8, RDW Coeff of Nai 14.3, Plt Count 147 L, MPV 10.8, Immature Gran % (Auto) 0.400, Neut % (Auto) 51.1, Lymph % (Auto) 29.6, [place] % (Auto) 11.8 H, Eos % (Auto) 6.5 H, Baso % (Auto) 0.6, Absolute Neuts (auto) 2.6, Absolute Lymphs (auto) 1.51, Nucleated RBC % 0 08/09/19 06:06: Sodium 138, Potassium 4.0, Chloride 108 H, Carbon Dioxide 26.0, Anion Gap 4 L, BUN 7, Creatinine 0.65 L, Estim Creat Clear Calc 138.82, Est GFR (MDRD) Af Amer 167, Est GFR (MDRD) Non-Af 138, BUN/Creatinine Ratio 10.8, Glucose 147 H, Calcium 8.6 08/09/19 06:38: POC Glucose 152 H Medical Necessity - Tobacco Use Smoking Status: Former smoker Tobacco Use: Non-smoker Assessment/Plan All Active Problems Diverticulitis of sigmoid colon (Acute) Acute peritonitis (Ruled-out) Hydrocele in adult (Resolved) Abdominal pain (Acute) Asthma exacerbation (Resolved) Acute exacerbation of COPD with asthma (Resolved) Viral URI (Resolved) Acute exacerbation of chronic obstructive pulmonary disease (COPD) (Resolved) CAP (community acquired pneumonia) (Resolved) Acute respiratory insufficiency (Resolved) DVT (deep venous thrombosis) (Resolved) History of diverticulitis of colon (Resolved) lower abdominal pain, CT scan consistent with diverticulitis complicated by pneumaturia suggestive of colovesical fistula I recommend the patient maintained on IV antibiotics. As his white count normalizes abdominal pain improves we may advance his diet. At this point I would plan for once the acute infection is gone in a few weeks plan for a barium enema and x-raying his urine to assess for barium in his urine which would be diagnostic of it colovesical fistula. Would then expect we would talk about sigmoid resection and probably 6-8 weeks. I discussed with the patient in addition to standard sigmoid resection this would involve removal of small amount of the wall of the bladder closure bladder and typically a Deleon catheter placed per week. OK for patient to be on low residue diet. If WBC count still normal Ok to transition to orals and discharge. Patient a previous history of hyperglycemia. His blood glucoses 178. hemoglobin A1c bis improved from his previous now 6.9. patient did state he has had episodes earlier in the spring and last winter of some chest pain with exertion. Patient has risk factors for coronary disease and has not had stress test or EKG for some time. will plan to obtain the studies as an outpatient prior to surgical intervention. comfortable with patient being discharged home on oral antibiotics. We'll plan to follow my office in 2-3 weeks.
--- NOTE | 2019-08-10 15:42 | CASEMGMT ---
SHARON CERVANTES Discharge Follow-Up Phone Call. Lace: 12 Strata: 4 Discharge Date: 08/09/19 Adm Dx: Diverticulitis, Colovesicular Fistula Attempted to complete discharge follow-up phone call. No answer and message came on stating the VM box has not been set up. Unable to leave a message. Uriel JAQUEZ RN CM
== END 2019-08-09 09:47 | disposition home or self-care (01) | DRG 392 ==
LOC: ED 13:55 → MS3 14:40
PROVIDERS: Surgery; Admitting Provider Internal Medicine; Emergency Provider Emergency Medicine; Family Provider Family Medicine; PCP Family Medicine; Referring Provider Internal Medicine; Visit Provider Internal Medicine
DX: K57.32 Diverticulitis of large intestine without perforation or abscess without bleeding (principal); Z68.42 Body mass index [BMI] 45.0-49.9, adult; N32.1 Vesicointestinal fistula; E78.5 Hyperlipidemia, unspecified; E11.9 Type 2 diabetes mellitus without complications; E66.01 Morbid (severe) obesity due to excess calories; Z79.84 Long term (current) use of oral hypoglycemic drugs; I10 Essential (primary) hypertension; Z87.891 Personal history of nicotine dependence; J44.9 Chronic obstructive pulmonary disease, unspecified; G47.33 Obstructive sleep apnea (adult) (pediatric); K21.9 Gastro-esophageal reflux disease without esophagitis
CPT/HCPCS: 36415; 74177; 80048; 81001; 82962; 83036; 83735; 85025; 87493; 94640; 99284; J7030; J7050; Q9967; A4216; J2405

== ENCOUNTER 2019-12-07 19:54 | Emergency (ER) | payer SELFPAY ==
[2019-08-06 10:01] VITALS: BMI 48.1
[2019-12-07 19:56] VITALS: BP 152/88; PULSE 87; RESP 16; TEMP 36.6; O2SAT 97; BMI 41.8
--- NOTE | 2019-12-07 20:15 | CT_ITS ---
HISTORY: PT STATED INFECTED COLOSTOMY STOMA, HX OF HTN, DIVERTICULITIS, DAVID TECHNIQUE: Helically acquired images were obtained of the abdomen and pelvis without oral or IV contrast. A radiation dose optimization technique was used for this scan. COMPARISON: Of the patient's 34 previous radiologic exams performed at this institution lung, most recent CT scan of the abdomen and pelvis is from August 06, 2019. Study before that is from April 20, 2019. CT of the abdomen and pelvis before that is November 05, 2015. FINDINGS: # of images incl. paperwork: 551 LUNG BASES: Basilar lung scarring is minimal. Hyperostosis of the inferior aspect of the sternum and at the xiphoid process with ossification of the chondral cartilage is unchanged. Deformity to the left anterior lateral sixth rib is likely from a healed fracture CT abdomen: No lytic or blastic lesions perceived. Intramedullary luz within the left femur. The gallbladder contains some tiny calcified gallstones and is mildly distended. Liver, spleen, pancreas, and adrenal glands are normal. The kidneys are normal. The aorta is diseased with mild atherosclerotic plaque, but without aneurysm. There is no intra-or extrahepatic biliary ductal dilatation. CT pelvis: No ascites is present. The prostate gland is not enlarged. The appendix is normal. Series 2 image 129. The bladder is decompressed. An anastomosis is present between sigmoid colon and rectum where a large portion of sigmoid colon has been resected. An ostomy defect is present through the right rectus abdominis muscle with a bag attached to the anterior abdominal wall. There appears to be both E friend and efferent loops extending to the ostomy perhaps a side enterostomy. The colon is completely decompressed CT/Abdomen/Pelvis without Cont IMPRESSION: Side enterostomy in the right anterior abdominal wall with skin thickening and minimal subcutaneous fat edema perhaps representing minimal cellulitis. No bowel obstruction. Colonic anastomosis with the rectum with most of the sigmoid colon having been resected. No adjacent abscess. Cholelithiasis. Individualized dose optimization techniques were used for this CT. at 2134 Reported and signed by: Sergio Bear MD Electronically Signed: Sergio Bear MD at 21:33 EST Tel , Service support ,
[2019-12-07] MEDS: 0.9% Normal Saline 1,000 ML 1000 ML IV (20:36)
[2019-12-07] MEDS: Ondansetron 4 MG/2 ML Vial IV (20:36)
[2019-12-07] MEDS: Morphine 4 MG/ML Syringe IV ×2 (20:36→23:40)
[2019-12-07 20:45] LABS: Absolute Lymphocyte Count 1.49 X10^3/uL (0.83-4.51); Absolute Neutrophil Count 7.4 X10^3/uL (2.0-7.7); Basophil# 0.04 X10^3/uL; Basophil% 0.4 % (0-1); Eosinophil# 0.02 X10^3/uL; Eosinophils% 0.2 % (0-5); Hematocrit 42.6 % (40-54); Hemoglobin 14.3 g/dL (13.0-16.5); Lymphocyte # 1.49 X10^3/ul (4.0); Lymphocyte % 16.1 % (19-41); Mean Corp Hgb Conc 33.6 g/dL (32-36); Mean Corpuscular Hgb 28.1 pg (27.0-32.0); Mean Corpuscular Volume 83.9 fL (80-94); Mean Platelet Vol. 10.8 fl (6.2-12.0); Monocyte# 0.31 X10^3/uL; Monocyte% 3.3 % (0-10); NRBC Flagged by Analyzer 0 % (0-5); Neutrophil # 7.36 X10^3/uL (2.7-7.7); Neutrophil % 79.6 % (47-70); Platelet Count 216 K/mm3 (150-450); RBC Distribution Width CV 12.5 % (11.6-14.6); RBC Distribution Width SD 37.8 fl (35.1-43.9); Red Blood Count 5.08 M/mm3 (4.6-6.2); White Blood Count 9.3 K/mm3 (4.4-11.0)
[2019-12-07 21:01] LABS: ALB/GLOB Ratio 0.7 RATIO (0.9-2.4); AST(SGOT) 52 U/L (15-37); Alanine Aminotransfer ALT/SGPT 78 U/L (16-61); Albumin, Serum 3.4 g/dL (3.2-5.0); Alkaline Phosphatase 128 U/L (45-117); Anion Gap 7 (5-15); BUN 16 mg/dL (7-18); BUN/Creat Ratio 20.6 RATIO (10-20); Calcium,Total 9.1 mg/dL (8.5-10.1); Chloride 111 mmol/L (98-107); Creatinine, Serum 0.78 mg/dL (0.70-1.30); EST Glomerular Filtration Rate 112 mL/min (>60); Est Glom Filt Rate - Afr Amer 136 mL/min (>60); Estimated Creatinine Clearance 119.33 ml/min; Globulin 4.6 g/dL (2.2-4.2); Glucose 181 mg/dL (74-106); Lipase 223 U/L (73-393); Potassium 3.9 mmol/L (3.5-5.1); Sodium Level 140 mmol/L (136-145)
[2019-12-07 21:05] LABS: Lactic Acid 2.3 mmol/L (0.4-1.9)
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
[2019-12-08 00:01] VITALS: BP 153/83; PULSE 70; RESP 16; O2SAT 100
[2019-12-08 00:35] VITALS: BP 152/90; PULSE 78; RESP 18; O2SAT 99
[2019-12-08 00:36] LABS: Reflex Lactate? Y
--- NOTE | 2019-12-08 00:36 | ED.RN ---
emerson rn and this rn helped apply an ostomy bag to the site. education about ostomy care and skin care given.
== END 2019-12-08 00:37 | disposition home or self-care (01) ==
LOC: ED 20:46
PROVIDERS: Emergency Provider Emergency Medicine; PCP Family Medicine
DX: T78.49XA Other allergy, initial encounter (principal); Z93.3 Colostomy status; E11.9 Type 2 diabetes mellitus without complications; I10 Essential (primary) hypertension; J44.9 Chronic obstructive pulmonary disease, unspecified; E78.00 Pure hypercholesterolemia, unspecified; Z79.4 Long term (current) use of insulin; Z79.51 Long term (current) use of inhaled steroids; Z79.899 Other long term (current) drug therapy
CPT/HCPCS: 36415; 74176; 80053; 83605; 83690; 85025; 96361; 96374; 96375; 96376; 99284; J7030; A4216; J2405

== ENCOUNTER 2020-09-11 18:10 | Emergency (ER) | payer MEDICAID, SELFPAY ==
[2020-09-11 18:11] VITALS: BP 162/103; PULSE 115; RESP 20; TEMP 38.1; O2SAT 98; BMI 47.1
[2020-09-11 19:05] VITALS: BP 175/94; PULSE 107; PULSE 109; RESP 17; RESP 18; TEMP 38.1; O2SAT 100
--- NOTE | 2020-09-11 19:11 | US_ITS ---
STUDY: SCROTUM ULTRASOUND REASON FOR EXAM: Male, 50 years old. RIGHT TESTICULAR SWELLING AND REDNESS X FEW DAYS WITH FEVER. RECENT SX FOR RIGHT HYDROCELE ON 09/03/20. TECHNIQUE: Ultrasound evaluation of the scrotum was performed with color Doppler and static ernandez-scale imaging. COMPARISON: None. FINDINGS: RIGHT TESTICLE INTRATESTICULAR: There is a normal size of the right testicle. The right testicle measures 2.9 x 4.2 x 3.5 cm. There is a homogenous echotexture. There is normal arterial and normal venous vascularity. There is no demonstrated right testicular mass or cyst. EXTRATESTICULAR: The epididymis is enlarged. The epididymis head measures 6.7 x 5.0 x 4.0 cm. There is normal vascularity of the epididymis. There is a 1.3 x 1.2 x 1.7 cm cystic structure. There is a moderate complex septated hydrocele. There is no demonstrated varicocele. There is no demonstrated extratesticular mass or cyst. There is right scrotal wall thickening. LEFT TESTICLE INTRATESTICULAR: There is a normal size of the left testicle. The left testicle measures 4.1 x 1.9 x 3.8 cm. There is a homogenous echotexture. There is normal arterial and normal venous vascularity. There is no demonstrated left testicular mass or cyst. EXTRATESTICULAR: The epididymis is normal in size. The epididymis head measures 2.9 x 1.7 x 1.1 cm. There is normal vascularity of the epididymis. There is 1.6 x 1.5 x 1.1 cm probable epididymal cystic structure. There is moderate hydrocele. There is no demonstrated varicocele. There is no demonstrated extratesticular mass or cyst. US/Testicular with Arterial Flow IMPRESSION: Normal bilateral testicles. Large complex septated right hydrocele with significantly enlarged heterogeneous right epididymis, likely infectious or inflammatory etiology. There is thickened right scrotal wall. Left hydrocele. Possible epididymal cysts bilaterally. Electronically Signed: DO James Ramos/11/26 at 21:17 EST Tel [phone], Service support ,
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
[2020-09-11 19:35] VITALS: BP 150/87; PULSE 105; RESP 23; TEMP 38.2; O2SAT 98
[2020-09-11] MEDS: 0.9% Normal Saline 1,000 ML 999 ML IV (19:40)
[2020-09-11] MEDS: Acetaminophen 500 MG Tablet 1000 MG PO (19:42)
[2020-09-11 19:46] LABS: Mucous, Urine 0 SEEN /hpf (<or=2+); Red Blood Cells-Urine 0 SEEN /hpf (0-5)
[2020-09-11 19:51] LABS: Color, Urine Yellow (Yellow); Glucose, Dipstick 1000 mg/dl (Normal); Ketone-Dipstick 50 mg/dl (Negative); Leukocyte Esterase-Dipstick 100 /ul (Negative); Nitrite-Dipstick Positive (Negative); Occult Blood-Urine 150 /ul (Negative); Protein-Dipstick 30 mg/dl (Negative); Specific Gravity, Urine 1.015 (1.002-1.030); Urine Bilirubin Dipstick Negative (Negative); Urine Clarity Cloudy (Clear); Urine Urobilinogen Normal (Normal)
[2020-09-11 20:00] VITALS: BP 144/93; PULSE 108; RESP 24; TEMP 38.2; O2SAT 97
[2020-09-11 20:03] LABS: Absolute Lymphocyte Count 1.43 X10^3/uL (0.83-4.51); Absolute Neutrophil Count 7.2 X10^3/uL (2.0-7.7); Basophil# 0.06 X10^3/uL; Basophil% 0.6 % (0-1); Eosinophil# 0.34 X10^3/uL; Eosinophils% 3.5 % (0-5); Hematocrit 45.1 % (40-54); Hemoglobin 15.2 g/dL (13.0-16.5); Lymphocyte # 1.43 X10^3/ul (4.0); Lymphocyte % 14.7 % (19-41); Mean Corp Hgb Conc 33.7 g/dL (32-36); Mean Corpuscular Hgb 28.7 pg (27.0-32.0); Mean Corpuscular Volume 85.3 fL (80-94); Mean Platelet Vol. 11.2 fl (6.2-12.0); Monocyte# 0.73 X10^3/uL; Monocyte% 7.5 % (0-10); NRBC Flagged by Analyzer 0 % (0-5); Neutrophil # 7.15 X10^3/uL (2.7-7.7); Neutrophil % 73.4 % (47-70); Platelet Count 164 K/mm3 (150-450); RBC Distribution Width CV 12.8 % (11.6-14.6); RBC Distribution Width SD 39.5 fl (35.1-43.9); Red Blood Count 5.29 M/mm3 (4.6-6.2); White Blood Count 9.7 K/mm3 (4.4-11.0)
[2020-09-11 20:06] LABS: International Normalized Ratio 1.1; Prothrombin Time (Protime)PT. 13.6 SECONDS (11.7-14.9)
[2020-09-11 20:07] LABS: Bacteria 2+ /hpf (None Seen); Squamous Epithelial Cells - UA 0-5 SEEN /hpf (0-5); White Blood Cells 10-25 SEEN /hpf (0-5)
[2020-09-11 20:07] LABS: Partial Thromboplast Time 25.5 Seconds (24.1-36.2)
[2020-09-11 20:09] LABS: ALB/GLOB Ratio 0.7 RATIO (0.9-2.4); AST(SGOT) 20 U/L (15-37); Alanine Aminotransfer ALT/SGPT 28 U/L (16-61); Albumin, Serum 3.1 g/dL (3.2-5.0); Alkaline Phosphatase 118 U/L (45-117); Anion Gap 7 (5-15); BUN 13 mg/dL (7-18); BUN/Creat Ratio 19.1 RATIO (10-20); Calcium,Total 9.1 mg/dL (8.5-10.1); Chloride 104 mmol/L (98-107); Creatinine, Serum 0.68 mg/dL (0.70-1.30); EST Glomerular Filtration Rate 130 mL/min (>60); Est Glom Filt Rate - Afr Amer 157 mL/min (>60); Estimated Creatinine Clearance 135.34 ml/min; Globulin 4.3 g/dL (2.2-4.2); Glucose 195 mg/dL (74-106); Potassium 4.1 mmol/L (3.5-5.1); Protein, Total 7.4 g/dL (6.4-8.2); Sodium Level 134 mmol/L (136-145)
[2020-09-11 20:18] LABS: Lactic Acid 1.4 mmol/L (0.4-1.9)
[2020-09-11 21:26] VITALS: BP 129/85; PULSE 105; PULSE 107; RESP 20; TEMP 37.9; O2SAT 96; O2SAT 97
[2020-09-11 22:00] VITALS: BP 115/64; PULSE 100; RESP 23; TEMP 37.5; O2SAT 97
[2020-09-12] VITALS: BP 127/69; PULSE 97; RESP 20; TEMP 37.8; O2SAT 99
[2020-09-12 01:00] VITALS: BP 120/73; PULSE 98; RESP 20; TEMP 37.7; O2SAT 99
== END 2020-09-12 01:45 | disposition short-term general hospital (02) ==
PROVIDERS: Emergency Provider Emergency Medicine; PCP Family Medicine
DX: N45.1 Epididymitis (principal); N49.2 Inflammatory disorders of scrotum; Z98.890 Other specified postprocedural states; E11.9 Type 2 diabetes mellitus without complications; I10 Essential (primary) hypertension; Z87.891 Personal history of nicotine dependence; Z79.4 Long term (current) use of insulin; Z79.899 Other long term (current) drug therapy
CPT/HCPCS: 76870; 80053; 81001; 83605; 85025; 85610; 85730; 87040; 87086; 87088; 87186; 87426; 93976; 96365; 96366; 99285; J7030; J7050; A4216

== ENCOUNTER 2022-12-06 11:18 | Emergency (ER) | payer MEDICARE, MEDICAID, SELFPAY ==
[2022-12-06 11:19] VITALS: BP 155/120; PULSE 107; RESP 18; TEMP 36.3; O2SAT 97; BMI 40.1
--- NOTE | 2022-12-06 11:54 | EKG12_ITS ---
Test Reason : Blood Pressure : / mmHG Vent. Rate : 090 BPM Atrial Rate : 090 BPM P-R Int : 168 ms QRS Dur : 098 ms QT Int : 374 ms P-R-T Axes : 028 099 060 degrees QTc Int : 457 ms Normal sinus rhythm Rightward axis Poor R wave progression Borderline ECG Confirmed by VANDANA MIRANDA, TAMELA ([id number]), web editor MILAN PARSONS ([id number]) on 12/07/2022 11:26:36 AM Referred By: SHAHIDA Confirmed By:TAMELA ROSS MD
--- NOTE | 2022-12-06 11:55 | EDS_ITS ---
HPI History of Present Illness Chief Complaint: Nausea/Vomiting/Diarrhea Detail of Chief Complaint: Nausea, vomiting diarrhea that started 30 hours Informant: patient Onset/Context/Timing Onset: Yesterday Context: Sudden Onset Timing: Intermittent Quality: Nausea, vomiting and diarrhea and a little chest discomfort Location: Mid chest Current Severity: Gone Maximum Severity: Mild Worsened by: Nothing Relieved by: Nothing Associated Symptoms Associated Symptoms: Denies, patient minimizes Narrative Narrative: Patient is a 52-year-old male with history of type 2 diabetes on insulin, hypertension, GERD, coronary disease status post angioplasty who presents with nausea, vomiting and diarrhea that started 30 hours ago. Patient's had significant mount of vomiting. He does endorse dry mouth, thirst but denies lightheadedness. He states he does not feel well. He states his blood sugar was 380 this morning. He states he is surprised since he has had nothing to eat. He does endorse diarrhea. States too many times to remember. He does report mucus without blood. He has history diverticulosis without history of diverticulitis and denies history of Crohn's or ulcerative colitis. Patient presently has no abdominal pain. He does endorse decreased urine output. He denies fever, chills or night sweats. He denies myalgias or arthralgias. Prior similar symptoms: Yes Recent Illness/Hospitalization: No PFSH [facility] Medical History (Updated 12/06/22 @ 14:[address] Sameer Whiteside MD) COPD (chronic obstructive pulmonary disease) Diabetes mellitus Diverticula of colon DVT (deep venous thrombosis) GERD (gastroesophageal reflux disease) HTN (hypertension) Home Medications albuterol sulfate 2.5 mg/3 mL (0.083 %) solution for nebulization 2.5 mg inhalation Q6H PRN PRN Sob &/Or Wheezing 01/03/16 [History Last Taken 11/18/16 04:00] atorvastatin 40 mg tablet 40 mg PO QHS 01/03/16 [History Last Taken 08/05/19] citalopram 20 mg tablet 30 mg PO DAILY 01/03/16 [History Last Taken 08/06/19] glimepiride 2 mg tablet 2 mg PO DAILY 01/03/16 [History Last Taken 08/06/19] lisinopril 10 mg tablet 10 mg PO DAILY 01/03/16 [History Last Taken 08/06/19] fluticasone furoate 100 mcg-vilanterol 25 mcg/dose inhalation powder (Breo Ellipta) 1 ea IH DAILY ##1 05/25/16 [Rx Last Taken 08/06/19] albuterol sulfate 90 mcg/actuation aerosol inhaler (Ventolin HFA) 2 puff inhalation Q2H PRN PRN COUGH/WHEEZE ##0 11/20/16 [Rx Last Taken 08/06/19] insulin detemir U-100 100 unit/mL (3 mL) subcutaneous pen 50 units subcut QHS 08/06/19 [History Last Taken 08/05/19] omeprazole 40 mg capsule,delayed release 20 mg PO DAILY 08/06/19 [History Last Taken 08/06/19] canagliflozin 100 mg tablet 100 mg PO DAILY 09/11/20 [History Last Taken Unknown] ibuprofen 800 mg tablet 800 mg PO Q8H PRN Pain 1-10 Or Fever 09/11/20 [History Last Taken Unknown] oxycodone-acetaminophen 5 mg-325 mg tablet 1 tab PO Q6H PRN PRN Pain 1-10 Or Fever 09/11/20 [History Last Taken Unknown] loperamide 2 mg capsule (Imodium A-D) 2 mg PO Q4H PRN loose stool #10 caps 12/06/22 [Rx Last Taken Unknown] ondansetron 4 mg disintegrating tablet 4 mg PO Q8H PRN PRN Nausea #10 tabs 12/06/22 [Rx Last Taken Unknown] Allergy/AdvReac Type Severity Reaction Status Date / Time No Known Allergies Allergy Verified 09/11/20 18:11 Social History (Updated 12/06/22 @ 11:[address] Sameer Whiteside MD) household members: none Smoking Status: Former smoker substance use type: does not use ROS ROS ED Constitutional Constitutional ED: Denies chills, fever(s), subjective, sweats or weight loss Eyes Eyes: Denies blurry vision, change in vision or diplopia ENT ENT ED: Denies ear pain, rhinorrhea or sore throat Cardiovascular Cardiovascular: Reports chest pain; Denies orthopnea, palpitations, paroxysmal nocturnal dyspnea or racing heartbeat Respiratory/Chest Respiratory/Chest: Denies cough, dyspnea, dyspnea on exertion, orthopnea or paroxysmal nocturnal dyspnea Gastrointestinal Gastrointestinal: Reports diarrhea, nausea and vomiting; Denies abdominal pain, constipation or melena Genitourinary Genitourinary ED: Denies dysuria, hematuria or urinary frequency Musculoskeletal Musculoskeletal: Reports myalgias; Denies arthralgias, back pain or neck pain Integumentary Denies rash Neurologic Neurologic: Denies paresthesias or weakness Psychiatric Psychiatric: Denies anxiety or depression Endocrine Endocrinology: Denies cold intolerance, heat intolerance or polydipsia Hematologic/Lymphatic Hematologic/Lymphatic: Reports systems reviewed and no addt'l complaints, except as documented Allergic/Immunologic Allergic/Immunologic ED: Denies mouth swelling, tongue swelling or urticaria EXAM Physical Exam Const Vital Signs: 12/06/22 11:19 12/06/22 13:19 Temperature 97.4 F L Temperature Source Temporal Pulse Rate 107 H 83 Respiratory Rate 18 16 Blood Pressure 155/120 H 154/78 H Blood Pressure Mean 131 103 Pulse Ox 97 97 Oxygen Delivery Method Room Air Room Air Positive well nourished, well developed, obese and unkempt General Appearance ED: unkempt, well developed and pallor; Negative for cyanotic, diaphoretic or NAD Nutritional Appearance: obese HEENT Reports dry mucous membranes HEENT Narrative: Head is atraumatic normocephalic. Ears normal. Nares patent. Posterior pharynx is normal. Mouth ED: Yes dry mucous membranes Mouth: dry mucous membranes Eyes PERRL and EOMs intact bilaterally General Eye ED: Negative for pale conjunctiva or scleral icterus Neck no lymphadenopathy, supple and no JVD Chest Wall inspection of chest normal and palpation of chest normal Resp normal respiratory effort and clear to auscultation bilaterally Cardio regular rhythm, S1 normal heart sound, S2 normal heart sound and no murmurs GI normal to inspection, nondistended, normoactive bowel sounds, non-tender, non- distended and no masses; Negative for hepatosplenomegaly Back/Spine no CVA tenderness Cervical Spine: Negative for cervical spine tenderness Thoracic Spine / Upper Back: Negative for thoracic spinal tenderness Lumbar Spine / Lower Back: Negative for lumbar spinal tenderness Extremity Negative for normal to inspection General Extremety ED: Yes edema; Negative for tenderness or other findings General Extremity: edema; Negative for other findings Neuro oriented x3, CN's II-XII intact bilaterally and no sensory deficits noted Sensorium / Orientation: alert Psych Psych Narrative: Affect is flat. Appearance: unkempt Skin no rashes or lesions noted, no wounds and No skin turgor normal General Skin Exam: pallor; Negative for elasticity normal or jaundice MDM MDM MDM Narrative Medical decision making narrative: Clinically patient appears dehydrated. With history of coronary disease will obtain EKG to rule out acute cardiac ischemia as well as troponin. He also has multiple risk factors for coronary disease. History is not suggestive of cardiac disease however he is diabetic. Since his blood sugar is elevated will obtain basic metabolic panel to assess glucose, CO2 anion gap as well as electrolytes and specifically to evaluate for hypokalemia. CBC was obtained to assess white count, H&H and differential. 1 L of normal saline was ordered. Zofran was ordered for his nausea and vomiting. Imodium was ordered for his diarrhea. He has no risk factors for pseudomembranous enterocolitis and has no history of pseudomembranous enterocolitis. Lab Data Attestation: I reviewed the patient's lab results. Lab results narrative: CBC is remarkable for elevated hemoglobin which would represent dehydration. Basic metabolic panel reveals mild hyponatremia, BUN/creatinine ratio is elevated at 24-1 with a BUN of 23. GFR is normal. Troponin is normal. Glucose is elevated at 346 with a normal CO2 and anion gap. Labs: Laboratory Results - last 24 hr 12/06/22 12/06/22 12:10 12:10 WBC 7.7 RBC 6.44 H Hgb 18.5 H* Hct 53.7 MCV 83.4 MCH 28.7 MCHC 34.5 RDW Std Deviation 39.5 RDW Coeff of Nai 13.2 Plt Count 125 L MPV 11.0 Immature Gran % (Auto) 0.800 Neut % (Auto) 73.9 H Lymph % (Auto) 12.2 L Gibson % (Auto) 11.6 H Eos % (Auto) 1.0 Baso % (Auto) 0.5 Absolute Neuts (auto) 5.7 Absolute Lymphs (auto) 0.94 Nucleated RBC % 0 [address] Review May foll Sodium 132 L Potassium 4.1 Chloride 99 Carbon Dioxide 22.0 Anion Gap 11 BUN 23 H Creatinine 0.98 Estim Creat Clear Calc 91.78 Est GFR (MDRD) Af Amer 103 Est GFR (MDRD) Non-Af 85 BUN/Creatinine Ratio 23.6 H Glucose 346 H Calcium 9.5 Troponin I High Sens 15 Rhythm Strip Rhythm Strip: Sinus Tach Rate: 102 EKG Initial EKG: Attestation: I personally reviewed and interpreted this EKG as follows: Interpretation: Sinus Rhythm (Rate is 90. Merrill to the right. CO interval is under 68 ms. QRS duration 98 ms. QT duration 374 ms. There is no ischemic changes noted.) Prior: Unchanged (November 18, 2016) Treatment and Re-Evaluation Narrative: Patient had 1 episode of diarrhea prior to receiving Imodium. He has not had vomiting or diarrhea since treatment. He feels better after fluid bolus. Heart rate is improved from 107-83. Discharge Plan Triage Chief Complaint: Nausea/Vomiting/Diarrhea ED Provider: Sameer Whiteside Dx/Rx/DC Orders Clinical Impression: Nausea vomiting and diarrhea, Hyperglycemia due to type 2 diabetes mellitus, Hyperlipidemia, Coronary artery disease, Hypertension, CATY (obstructive sleep apnea), Acute prerenal azotemia, Sinus tachycardia Instructions: ED Vomiting and Diarrhea ... Prescriptions: New ondansetron [ondansetron] 4 mg tablet,disintegrating 4 mg PO Q8H PRN PRN (Reason: Nausea) Qty: 10 0RF loperamide [Imodium A-D] 2 mg capsule 2 mg PO Q4H PRN (Reason: loose stool) Qty: 10 0RF Rx Instructions: administer after each loose stool until symptoms controlled; do not exceed 8 mg per 24 hrs No Action atorvastatin 40 MG tablet 40 mg PO QHS Label Comments: cholesterol albuterol sulfate 2.5 MG/3 ML solution for nebulization 2.5 mg inhalation Q6H PRN PRN (Reason: Sob &/Or Wheezing) Label Comments: breathing glimepiride 2 MG tablet 2 mg PO DAILY Label Comments: diabetes citalopram 20 MG tablet 30 mg PO DAILY Label Comments: depression lisinopril 10 MG tablet 10 mg PO DAILY Label Comments: blood pressure fluticasone furoate-vilanterol [Breo Ellipta] 1 EACH blister with device 1 ea IH DAILY Qty: 1 1RF Label Comments: breathing albuterol sulfate [Ventolin HFA] 1 INHALER inhaler 2 puff inhalation Q2H PRN PRN (Reason: COUGH/WHEEZE) Qty: 0 0RF Label Comments: breathing omeprazole 40 MG capsule,delayed release(DR/EC) 20 mg PO DAILY insulin detemir U-100 100 UNITS/ML insulin pen 50 units subcut QHS ibuprofen 800 MG tablet 800 mg PO Q8H PRN (Reason: Pain 1-10 Or Fever) oxycodone-acetaminophen 1 TABLET tablet 1 tab PO Q6H PRN PRN (Reason: Pain 1-10 Or Fever) canagliflozin 100 MG tablet 100 mg PO DAILY Primary Care Provider: Gerardo Borrego Referrals: Gerardo Borrego MD [Primary Care Provider] - 3-5 Days if not improving Disposition Disposition: Home, Self Care
[2022-12-06] MEDS: 0.9% Normal Saline 1,000 ML 1000 ML IV (12:12)
[2022-12-06] MEDS: Ondansetron 4 MG/2 ML Vial IV (12:13)
[2022-12-06] MEDS: Loperamide 2 MG Capsule 4 MG PO (12:13)
[2022-12-06 12:18] LABS: Absolute Lymphocyte Count 0.94 X10^3/uL (0.83-4.51); Absolute Neutrophil Count 5.7 X10^3/uL (2.0-7.7); Basophil# 0.04 X10^3/uL; Basophil% 0.5 % (0-1); Eosinophil# 0.08 X10^3/uL; Hematocrit 53.7 % (40-54); Hemoglobin 18.5 g/dL (13.0-16.5); Lymphocyte # 0.94 X10^3/ul (0.83-4.51); Lymphocyte % 12.2 % (19-41); Mean Corp Hgb Conc 34.5 g/dL (32-36); Mean Corpuscular Hgb 28.7 pg (27.0-32.0); Mean Corpuscular Volume 83.4 fL (80-94); Monocyte# 0.89 X10^3/uL; Monocyte% 11.6 % (0-10); NRBC Flagged by Analyzer 0 % (0-5); Neutrophil # 5.67 X10^3/uL (2.7-7.7); Neutrophil % 73.9 % (47-70); Platelet Count 125 K/mm3 (150-450); RBC Distribution Width CV 13.2 % (11.6-14.6); RBC Distribution Width SD 39.5 fl (35.1-43.9); Red Blood Count 6.44 M/mm3 (4.6-6.2); White Blood Count 7.7 K/mm3 (4.4-11.0)
[2022-12-06 12:31] LABS: Anion Gap 11 (5-15); BUN 23 mg/dL (7-18); BUN/Creat Ratio 23.6 RATIO (10-20); Calcium,Total 9.5 mg/dL (8.5-10.1); Chloride 99 mmol/L (98-107); Creatinine, Serum 0.98 mg/dL (0.70-1.30); EST Glomerular Filtration Rate 85 mL/min (>60); Est Glom Filt Rate - Afr Amer 103 mL/min (>60); Estimated Creatinine Clearance 91.78 ml/min; Glucose 346 mg/dL (74-106); Potassium 4.1 mmol/L (3.5-5.1); Sodium Level 132 mmol/L (136-145); Troponin-I HS 15 pg/mL (3.0-78.0)
[2022-12-06 13:19] VITALS: BP 154/78; PULSE 83; RESP 16; O2SAT 97
[2022-12-06 15:01] VITALS: BP 135/78; PULSE 81; RESP 16; O2SAT 98
[2022-12-07 14:53] LABS: Pathologist Review Reviewed
== END 2022-12-06 15:02 | disposition home or self-care (01) ==
PROVIDERS: Emergency Provider Emergency Medicine; PCP Family Medicine; Visit Provider Emergency Medicine
DX: R11.2 Nausea with vomiting, unspecified (principal); J44.9 Chronic obstructive pulmonary disease, unspecified; E11.65 Type 2 diabetes mellitus with hyperglycemia; G47.33 Obstructive sleep apnea (adult) (pediatric); Z87.891 Personal history of nicotine dependence; I25.10 Atherosclerotic heart disease of native coronary artery without angina pectoris; R00.0 Tachycardia, unspecified; I10 Essential (primary) hypertension; R19.7 Diarrhea, unspecified; E78.5 Hyperlipidemia, unspecified; E66.9 Obesity, unspecified; R79.89 Other specified abnormal findings of blood chemistry; Z87.19 Personal history of other diseases of the digestive system
CPT/HCPCS: 80048; 84484; 85025; 93005; 96361; 96374; 99285; J7030; A4216; J2405

== ENCOUNTER 2024-01-29 00:02 | Emergency (ER) | payer MEDICARE, MEDICAID, SELFPAY ==
[2024-01-29] VITALS (8 sets, daily range): BP systolic 117–174; BP diastolic 63–89; PULSE 70–88; RESP 16–23; TEMP 36.3–36.6; O2SAT 95–99; BMI 42.9
--- NOTE | 2024-01-29 00:16 | EKG12_ITS ---
Test Reason : SOB Blood Pressure : / mmHG Vent. Rate : 086 BPM Atrial Rate : 086 BPM P-R Int : 184 ms QRS Dur : 098 ms QT Int : 384 ms P-R-T Axes : 041 077 062 degrees QTc Int : 459 ms Normal sinus rhythm Nonspecific ST abnormality Abnormal ECG When compared with ECG of 06-DEC-2022 12:13, No significant change was found Confirmed by WILLIAMS MIRANDA, KALLIE ([id number]), assistant production editor TANESHA ROJO ([id number]) on 02/01/2024 9:20:40 AM Referred By: Confirmed By:KALLIE KRAMER MD
[2024-01-29] MEDS: Ipratropium/Albuterol Sulfate 3 ML AMPUL.NEB INHALATION (00:26)
[2024-01-29] MEDS: DiphenhydrAMINE 50 MG/ML Syringe 25 MG IV (00:26)
[2024-01-29] MEDS: Albuterol 2.5 MG/3 ML VIAL.NEB. INHALATION ×2 (00:26)
[2024-01-29 00:34] LABS: Absolute Lymphocyte Count 2.23 X10^3/uL (0.83-4.51); Absolute Neutrophil Count 2.6 X10^3/uL (2.0-7.7); Basophil# 0.06 X10^3/uL; Basophil% 1.1 % (0-1); Eosinophil# 0.27 X10^3/uL; Eosinophils% 4.7 % (0-5); Hematocrit 44.4 % (40-54); Hemoglobin 15.3 g/dL (13.0-16.5); Lymphocyte # 2.23 X10^3/ul (0.83-4.51); Lymphocyte % 39.1 % (19-41); Mean Corp Hgb Conc 34.5 g/dL (32-36); Mean Corpuscular Hgb 29.4 pg (27.0-32.0); Mean Corpuscular Volume 85.2 fL (80-94); Mean Platelet Vol. 11.7 fl (6.2-12.0); Monocyte# 0.42 X10^3/uL; Monocyte% 7.4 % (0-10); NRBC Flagged by Analyzer 0 % (0-5); Neutrophil # 2.64 X10^3/uL (2.7-7.7); Neutrophil % 46.1 % (47-70); POSITIVE COUNT YES; Platelet Count 92 K/mm3 (150-450); RBC Distribution Width CV 13.2 % (11.6-14.6); Red Blood Count 5.21 M/mm3 (4.6-6.2); White Blood Count 5.7 K/mm3 (4.4-11.0)
--- NOTE | 2024-01-29 00:35 | RAD_ITS ---
INDICATION: cough EXAMINATION/TECHNIQUE: X-RAY - XR Chest 2 Views COMPARISON: No relevant prior comparison study available FINDINGS: LINES/DEVICES: None. LUNGS: No consolidation, edema or effusion. No pneumothorax. MEDIASTINUM AND CARDIOVASCULAR STRUCTURES: Cardiac silhouette not enlarged. Central airways and mediastinal contour are unremarkable. 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 RAD/Chest PA and Lateral IMPRESSION: No radiographic evidence of acute cardiopulmonary disease. Electronically Signed: Bear Foster MD at 2:17 EDT ,
[2024-01-29 00:36] LABS: Differential Indicated SCAN CRITERIA MET
[2024-01-29 00:42] LABS: Anion Gap 8 (5-15); BUN 16 mg/dL (7-18); BUN/Creat Ratio 20.5 RATIO (10-20); Calcium,Total 8.9 mg/dL (8.5-10.1); Chloride 105 mmol/L (98-107); Creatinine, Serum 0.78 mg/dL (0.70-1.30); EST Glomerular Filtration Rate 109 mL/min (>60); Est Glom Filt Rate - Afr Amer 132 mL/min (>60); Glucose 415 mg/dL (74-106); Magnesium 1.6 mg/dL (1.6-2.6); Potassium 3.9 mmol/L (3.5-5.1); Sodium Level 135 mmol/L (136-145)
--- NOTE | 2024-01-29 00:51 | EX.ED.DYSGE1 ---
HPI History of Present Illness Chief Complaint: Shortness of Breath Informant: patient and EMS Narrative Narrative: Patient is a 53-year-old male with past medical history of coronary artery disease obstructive sleep apnea insulin-dependent diabetes hypertension and COPD. He states this evening he had increased cough and shortness of breath. He states that he does not have any fevers or chills and he denies any known sick contacts. He states there is no allergen exposure in either. He denies any chest pain nausea vomiting or diaphoresis. However based on his complex past medical history and the fact he was having worsening of symptoms EMS was called to bring him in for evaluation. EMS states when they arrived his pulse ox was 95% on room air [facility] Medical History BPH (benign prostatic hyperplasia) Cholecystitis COPD (chronic obstructive pulmonary disease) Depression Diabetes mellitus Diverticula of colon Diverticulitis DVT (deep venous thrombosis) Fatty liver Femur fracture GERD (gastroesophageal reflux disease) H. pylori infection HTN (hypertension) Rib fracture Home Medications albuterol sulfate 2.5 mg/3 mL (0.083 %) solution for nebulization 2.5 mg inhalation Q6H PRN PRN Sob &/Or Wheezing 01/03/16 [History Last Taken 11/18/16 04:00] atorvastatin 40 mg tablet 40 mg PO QHS 01/03/16 [History Last Taken 08/05/19] citalopram 20 mg tablet 30 mg PO DAILY 01/03/16 [History Last Taken 08/06/19] glimepiride 2 mg tablet 2 mg PO DAILY 01/03/16 [History Last Taken 08/06/19] lisinopril 10 mg tablet 10 mg PO DAILY 01/03/16 [History Last Taken 08/06/19] fluticasone furoate 100 mcg-vilanterol 25 mcg/dose inhalation powder (Breo Ellipta) 1 ea IH DAILY ##1 05/25/16 [Rx Last Taken 08/06/19] albuterol sulfate 90 mcg/actuation aerosol inhaler (Ventolin HFA) 2 puff inhalation Q2H PRN PRN COUGH/WHEEZE ##0 11/20/16 [Rx Last Taken 08/06/19] insulin detemir U-100 100 unit/mL (3 mL) subcutaneous pen 50 units subcut QHS 08/06/19 [History Last Taken 08/05/19] omeprazole 40 mg capsule,delayed release 20 mg PO DAILY 08/06/19 [History Last Taken 08/06/19] canagliflozin 100 mg tablet 100 mg PO DAILY 09/11/20 [History Last Taken Unknown] ibuprofen 800 mg tablet 800 mg PO Q8H PRN Pain 1-10 Or Fever 09/11/20 [History Last Taken Unknown] oxycodone-acetaminophen 5 mg-325 mg tablet 1 tab PO Q6H PRN PRN Pain 1-10 Or Fever 09/11/20 [History Last Taken Unknown] loperamide 2 mg capsule (Imodium A-D) 2 mg PO Q4H PRN loose stool #10 caps 12/06/22 [Rx Last Taken Unknown] ondansetron 4 mg disintegrating tablet 4 mg PO Q8H PRN PRN Nausea #10 tabs 12/06/22 [Rx Last Taken Unknown] hydrocodone-homatropine 5 mg-1.5 mg/5 mL (5 mL) oral syrup (Hycodan) 5 ml PO 4X/DAY PRN cough 7 days #140 mL 01/29/24 [Rx Last Taken Unknown] Allergy/AdvReac Type Severity Reaction Status Date / Time No Known Allergies Allergy Verified 09/11/20 18:11 Social History (Updated 12/06/22 @ 11:[address] Sameer Whiteside MD) household members: none Smoking Status: Former smoker substance use type: does not use ROS ROS ED Constitutional Constitutional ED: Denies chills or fever(s) ENT ENT ED: Reports rhinorrhea; Denies sore throat Cardiovascular Cardiovascular: Denies chest pain, palpitations or racing heartbeat Respiratory/Chest Respiratory/Chest: Reports cough and dyspnea Gastrointestinal Gastrointestinal: Denies abdominal pain, diarrhea, nausea or vomiting Genitourinary Genitourinary ED: Denies dysuria Musculoskeletal Musculoskeletal: Denies myalgias Integumentary Reports rash Neurologic Neurologic: Denies headache(s) Hematologic/Lymphatic Hematologic/Lymphatic: Denies easy bleeding or easy bruising EXAM Physical Exam Const Vital Signs: 01/29/24 00:03 01/29/24 00:07 01/29/24 00:09 Temperature 97.9 F 97.9 F Temperature Source Temporal Temporal Pulse Rate 85 85 Respiratory Rate 18 19 H Respiratory Effort Normal Short of Breath Respiratory Depth Deep Respiratory Pattern Normal Blood Pressure 174/89 H 174/89 H Blood Pressure Mean 117 117 Pulse Ox 98 98 Oxygen Delivery Method Room Air Room Air Room Air 01/29/24 00:08 01/29/24 01:07 01/29/24 02:00 Temperature 97.9 F 98 F Temperature Source Oral Oral Pulse Rate 86 70 88 Respiratory Rate 17 23 H 19 H Respiratory Effort Respiratory Depth Respiratory Pattern Blood Pressure 156/89 H 121/63 H Blood Pressure Mean 111 82 Pulse Ox 95 97 Oxygen Delivery Method Room Air Room Air Positive well nourished, well developed and obese General Appearance ED: well developed; Negative for pallor Nutritional Appearance: obese HEENT HEENT Narrative: No tongue or lip swelling noted No oral lesions no airway edema or compromise Patient does have cobblestoning the posterior pharynx consistent with sinus drainage without secondary changes to suggest infection Eyes PERRL and EOMs intact bilaterally General Eye ED: Negative for pale conjunctiva or scleral icterus Neck supple and no JVD Chest Wall palpation of chest normal Chest Narrative: No bony deformity or crepitance Resp normal respiratory effort Resp Narrative: No nasal flaring retractions tachypnea or accessory muscle use. Patient is not dyspneic with speech Breath sounds are diminished with diffuse expiratory wheeze Cardio regular rate and regular rhythm Rate: other Other Details: Radial and carotid pulses are equal and symmetric GI normal to inspection, nondistended, normoactive bowel sounds, non-tender, non-distended and no masses GI Narrative: No pulsatile mass or fluid wave noted Auscultation: normoactive bowel sounds Palpation: soft Extremity normal to inspection Extremity Narrative: No asymmetric edema no pitting edema negative Homans' sign bilaterally Neuro oriented x3, CN's II-XII intact bilaterally and no sensory deficits noted Sensorium / Orientation: alert Motor Exam: strength 5/5 throughout Psych mental status grossly normal Skin no rashes or lesions noted General Skin Exam: Negative for jaundice or pallor MDM MDM MDM Narrative Medical decision making narrative: Patient arrived to the ER satting in the mid 90s with minimal increased work of breathing. Differential diagnosis is for COPD exacerbation versus pneumonia versus pneumothorax versus congestive heart failure versus acute coronary syndrome versus potential diabetic exacerbation such as DKA or HHS. Basic blood work was obtained which showed hyperglycemia at 415 but anion gap is normal his serum bicarb is normal as well and this goes against DKA and his serum osmolality is 302 going against HHS. There is also concern he could have a viral infection such as COVID versus influenza versus RSV so swab was obtained which was negative. Chest x-ray revealed no obvious infiltrate pneumothorax or pleural effusion. After receiving DuoNeb and albuterol as well as Benadryl the patient had improvement of his breath sounds and pulse ox was 98 to 100% on room air. Therefore at this time as the patient does not have respiratory distress or need for supplemental oxygen and as he is not in DKA or HHS or showing signs of acute coronary syndrome he is otherwise safe for discharge home. At this time as he is a diabetic with hyperglycemia I do not feel steroids are appropriate and therefore none be given in the ER or prescribed for home History & Record Review Discussion w/independent historian: Patient Lab Data Attestation: I reviewed the patient's lab results. Labs: Laboratory Results - last 24 hr 01/29/24 00:09 WBC 5.7 RBC 5.21 Hgb 15.3 Hct 44.4 MCV 85.2 MCH 29.4 MCHC 34.5 RDW Std Deviation 41.0 RDW Coeff of Nai 13.2 Plt Count 92 L MPV 11.7 Immature Gran % (Auto) 1.600 H Neut % (Auto) 46.1 L Lymph % (Auto) 39.1 [place] % (Auto) 7.4 Eos % (Auto) 4.7 Baso % (Auto) 1.1 H Absolute Neuts (auto) 2.6 Absolute Lymphs (auto) 2.23 Nucleated RBC % 0 Platelet Estimate SLT DEC Sodium 135 L Potassium 3.9 Chloride 105 Carbon Dioxide 22.0 Anion Gap 8 BUN 16 Creatinine 0.78 Estim Creat Clear Calc 152.90 Est GFR (MDRD) Af Amer 132 Est GFR (MDRD) Non-Af 109 BUN/Creatinine Ratio 20.5 H Glucose 415 H Calcium 8.9 Magnesium 1.6 B-Natriuretic Peptide 56.4 Radiography Diagnostic Testing: Clinical Impression(s) from Imaging Studies Chest X-Ray 01/29/24 00:35 IMPRESSION: No radiographic evidence of acute cardiopulmonary disease. Electronically Signed: Bear Foster MD at 2:17 EDT , 2 view chest x-ray as interpreted by the emergency medicine physician reveals no acute infiltrate pneumothorax pleural effusion or widening of the mediastinum Discharge Plan Triage Chief Complaint: Shortness of Breath ED Provider: Bruce Dong Dx/Rx/DC Orders Clinical Impression: COPD exacerbation Instructions: COPD: Wheezing and Chest Tightness Prescriptions: New hydrocodone-homatropine [Hycodan] 5-1.5 mg/5 mL (5 mL) syrup 5 ml PO 4X/DAY PRN (Reason: cough) 7 Days Qty: 140 0RF No Action atorvastatin 40 MG tablet 40 mg PO QHS Patient Comments: cholesterol albuterol sulfate 2.5 MG/3 ML solution for nebulization 2.5 mg inhalation Q6H PRN PRN (Reason: Sob &/Or Wheezing) Patient Comments: breathing glimepiride 2 MG tablet 2 mg PO DAILY Patient Comments: diabetes citalopram 20 MG tablet 30 mg PO DAILY Patient Comments: depression lisinopril 10 MG tablet 10 mg PO DAILY Patient Comments: blood pressure fluticasone furoate-vilanterol [Breo Ellipta] 1 EACH blister with device 1 ea IH DAILY Qty: 1 1RF Patient Comments: breathing albuterol sulfate [Ventolin HFA] 1 INHALER inhaler 2 puff inhalation Q2H PRN PRN (Reason: COUGH/WHEEZE) Qty: 0 0RF Patient Comments: breathing omeprazole 40 MG capsule,delayed release(DR/EC) 20 mg PO DAILY insulin detemir U-100 100 UNITS/ML insulin pen 50 units subcut QHS ibuprofen 800 MG tablet 800 mg PO Q8H PRN (Reason: Pain 1-10 Or Fever) oxycodone-acetaminophen 1 TABLET tablet 1 tab PO Q6H PRN PRN (Reason: Pain 1-10 Or Fever) canagliflozin 100 MG tablet 100 mg PO DAILY ondansetron [ondansetron] 4 mg tablet,disintegrating 4 mg PO Q8H PRN PRN (Reason: Nausea) Qty: 10 0RF loperamide [Imodium A-D] 2 mg capsule 2 mg PO Q4H PRN (Reason: loose stool) Qty: 10 0RF Rx Instructions: administer after each loose stool until symptoms controlled; do not exceed 8 mg per 24 hrs Primary Care Provider: Gerardo Borrego Referrals: Gerardo Borrego MD [Primary Care Provider] - Activity Restrictions/Additional Instructions: Please continue your albuterol inhaler to help with bronchospasm/shortness of breath. Use the prescribed cough medication to help reduce your cough and follow-up with your family doctor for repeat evaluation. Your workup today shows no sign of heart damage or pneumonia. Please return to the ER should you have any worsening of symptoms or any further concerns Disposition Disposition: Home, Self Care
[2024-01-29 01:13] LABS: Platelet Estimate SLT DEC (ADEQ)
[2024-01-29 01:23] LABS: BNP,B-Type NATRIURETIC PEPTIDE 56.4 pg/mL (0-100)
[2024-01-29] MEDS: Acetaminophen 500 MG Tablet 1000 MG PO (01:53)
== END 2024-01-29 03:18 | disposition home or self-care (01) ==
PROVIDERS: Emergency Provider Emergency Medicine; PCP Family Medicine; Visit Provider Emergency Medicine
DX: J44.1 Chronic obstructive pulmonary disease with (acute) exacerbation (principal); E11.9 Type 2 diabetes mellitus without complications; Z79.4 Long term (current) use of insulin; Z87.891 Personal history of nicotine dependence; G47.33 Obstructive sleep apnea (adult) (pediatric); I10 Essential (primary) hypertension; I25.10 Atherosclerotic heart disease of native coronary artery without angina pectoris; Z79.899 Other long term (current) drug therapy; Z79.84 Long term (current) use of oral hypoglycemic drugs; Z79.51 Long term (current) use of inhaled steroids
CPT/HCPCS: 71046; 80048; 83735; 83880; 85025; 87631; 93005; 94640; 96374; 99285; A4216

== ENCOUNTER 2024-05-14 20:14 | Emergency (ER) | payer MEDICARE, MEDICAID, SELFPAY ==
[2024-05-14 20:15] VITALS: BP 136/88; PULSE 96; RESP 18; TEMP 35.6; O2SAT 97; BMI 39.6
--- NOTE | 2024-05-14 20:32 | CT_ITS ---
STUDY: CT ABDOMEN AND PELVIS WITH CONTRAST REASON FOR EXAM: Male, 53 years old. llq abdominal pain RADIATION DOSAGE (If Supplied By Facility): CTDIvol = ( 16.93 ) mGy, DLP = ( 1372.44 ) mGycm TECHNIQUE: Transaxial images were obtained from the dome of the diaphragm to the symphysis pubis without oral contrast. IV 100mL Isovue-370 was administered. Sagittal and coronal images were reconstructed. Individualized dose optimization techniques were used for this CT. COMPARISON: None. FINDINGS: The visualized lung bases are unremarkable. The visualized portions of the heart are within normal limits. Normal liver. Cholelithiasis. No significant dilatation of extrahepatic biliary system. Enlarged spleen. Normal pancreas. Normal bilateral adrenal glands. Small cysts in the right kidney. Normal left kidney. Normal visualized stomach. Normal small intestine. Normal colon. The appendix is visualized and appears normal. Calcified abdominal aorta. Normal inferior vena cava. Normal retroperitoneum. Normal urinary bladder. Normal abdominal wall. Intramedullary luz in the left femur. CT/Abdomen/Pelvis W IV Cont ONLY IMPRESSION: Cholelithiasis. Splenomegaly. Right renal cysts. Electronically Signed: Asher Priest DO at 22:10 EDT Reading Location ID and State: [facility] / [place] Tel [phone], Service support ,
--- NOTE | 2024-05-14 20:32 | ED.VIS.GI ---
HPI HPI - GI History of Present Illness Chief Complaint: Abd Pain Narrative Narrative: 53-year-old male with history of diverticulitis presenting with left-sided abdominal pain nausea, vomiting, diarrhea. Patient states it started about a week ago and he thought he had food poisoning. He states that he had a lot of diarrhea and he was sweating a lot. He has not a fever. He states he is also nauseous. The nausea is getting better and the diarrhea has slowed down however the patient feels weak and light headed and is having worsening left-sided abdominal pain PFSH PFSH Medical History BPH (benign prostatic hyperplasia) Cholecystitis COPD (chronic obstructive pulmonary disease) Depression Diabetes mellitus Diverticula of colon Diverticulitis DVT (deep venous thrombosis) Fatty liver Femur fracture GERD (gastroesophageal reflux disease) H. pylori infection HTN (hypertension) Rib fracture Home Medications ?Medication ?Instructions ?Recorded ?Last Taken ?Type albuterol sulfate 2.5 mg/3 mL 2.5 mg inhalation Q6H PRN PRN Sob 01/03/16 11/18/16 04:00 History (0.083 %) solution for nebulization &/Or Wheezing atorvastatin 40 mg tablet 40 mg PO QHS 01/03/16 08/05/19 History citalopram 20 mg tablet 30 mg PO DAILY 01/03/16 08/06/19 History glimepiride 2 mg tablet 2 mg PO DAILY 01/03/16 08/06/19 History lisinopril 10 mg tablet 10 mg PO DAILY 01/03/16 08/06/19 History fluticasone furoate 100 1 ea IH DAILY ##1 05/25/16 08/06/19 Rx mcg-vilanterol 25 mcg/dose inhalation powder (Breo Ellipta) albuterol sulfate 90 mcg/actuation 2 puff inhalation Q2H PRN PRN 11/20/16 08/06/19 Rx aerosol inhaler (Ventolin HFA) COUGH/WHEEZE ##0 insulin detemir U-100 100 unit/mL 50 units subcut QHS 08/06/19 08/05/19 History (3 mL) subcutaneous pen omeprazole 40 mg capsule,delayed 40 mg PO BID 08/06/19 08/06/19 History release ibuprofen 800 mg tablet 800 mg PO Q8H PRN Pain 1-10 Or 09/11/20 Unknown History Fever loperamide 2 mg capsule (Imodium 2 mg PO Q4H PRN loose stool #10 12/06/22 Unknown Rx A-D) caps empagliflozin 25 mg tablet 25 mg PO DAILY 05/14/24 Unknown History (Jardiance) insulin lispro 100 unit/mL 30 unit subcut QPM 05/14/24 Unknown History subcutaneous pen ondansetron 4 mg disintegrating 4 mg PO Q8H PRN PRN Nausea #14 tabs 05/14/24 Unknown Rx tablet Allergy/AdvReac Type Severity Reaction Status Date / Time No Known Allergies Allergy Verified 05/14/24 20:15 Social History (Updated 12/06/22 @ 11:[address] Sameer Whiteside MD) household members: none Smoking Status: Former smoker substance use type: does not use ROS ROS ED Constitutional Constitutional ED: Reports sweats; Denies chills or fever(s) Eyes Eyes: Denies blurry vision or change in vision ENT ENT ED: Denies ear pain or sore throat Cardiovascular Cardiovascular: Denies chest pain, palpitations or racing heartbeat Respiratory/Chest Respiratory/Chest: Denies cough, dyspnea or sputum Gastrointestinal Gastrointestinal: Reports abdominal pain, diarrhea, nausea and vomiting; Denies constipation Genitourinary Genitourinary ED: Denies dysuria, hematuria or urinary frequency Musculoskeletal Musculoskeletal: Denies arthralgias, myalgias or neck pain Integumentary Denies abscess, Abrasions or rash Neurologic Neurologic: Denies headache(s), paresthesias or weakness Psychiatric Psychiatric: Denies anxiety, depression, suicidal ideation or suicidal thoughts Endocrine Endocrinology: Denies polydipsia or polyuria EXAM Physical Exam Const Vital Signs: 05/14/24 20:15 05/14/24 22:14 05/14/24 22:59 Temperature 96.1 F L 97.1 F L Temperature Source Temporal Pulse Rate 96 75 81 Respiratory Rate 18 16 18 Blood Pressure 136/88 H 136/72 H 136/85 H Blood Pressure Mean 104 93 102 Pulse Ox 97 96 96 Oxygen Delivery Method Room Air Room Air Positive well nourished General Appearance ED: Negative for pallor HEENT Reports moist mucous membranes normocephalic and atraumatic Eyes PERRL Resp normal respiratory effort and clear to auscultation bilaterally Auscultation: Negative for rales, rhonchi or wheezes Cardio regular rate and regular rhythm GI Palpation: tender LLQ and LUQ Neuro CN's II-XII intact bilaterally Sensorium / Orientation: alert Psych mental status grossly normal Skin General Skin Exam: Negative for jaundice or pallor MDM MDM MDM Narrative Medical decision making narrative: Patient presenting with left-sided abdominal pain in the upper and lower quadrants on the left. He states it also radiates to the right at times. Patient presenting with right flank pain. Differential includes colitis, diverticulitis, gastritis, pancreatitis, acute cholecystitis, constipation, appendicitis, UTI, pyelonephritis, calculi, ureteral calculi, obstruction, malignancy, dehydration, electrolyte abnormalities. CBC will be obtained to assess white blood cell count, hemoglobin, platelets. CMP to assess renal function, electrolytes, liver function, glucose. Lipase to assess for pancreatitis. Urinalysis to assess for UTI. Will obtain a CT of the abdomen pelvis with IV contrast. IV was started and patient given IV fluids, morphine, Zofran. CBC shows normal white blood cell count 8.2. Hemoglobin 14.4. Platelets are normal. Renal function and electrolytes unremarkable. LFTs are normal. Lipase was 100 but not consistent with pancreatitis. Urinalysis negative. CT of the abdomen pelvis with IV contrast was obtained and shows no cholelithiasis although the patient's not tender in the right upper quadrant. Also shows splenomegaly. There are right renal cyst. There is nothing else acute. Patient counseled on findings. He does feel improved after treatment. I will discharge him home. Return precautions discussed Impression: 1. Nausea/vomiting 2. Diarrhea 3. Abdominal pain Lab Data Attestation: I reviewed the patient's lab results. Labs: Laboratory Results - last 24 hr 05/14/24 05/14/24 20:37 20:42 WBC 8.2 RBC 5.19 Hgb 14.4 Hct 41.9 MCV 80.7 MCH 27.7 MCHC 34.4 RDW Std Deviation 39.6 RDW Coeff of Nai 13.6 Plt Count 169 MPV 10.3 Immature Gran % (Auto) 0.600 Neut % (Auto) 34.1 L Lymph % (Auto) 56.7 H Graham % (Auto) 6.2 Eos % (Auto) 2.0 Baso % (Auto) 0.4 Absolute Neuts (auto) 2.8 Absolute Lymphs (auto) 4.63 H Nucleated RBC % 0 Differential Comment COMMENT Diff Path Review May foll Atypical Lymphocytes 1+ Reactive Lymphocytes 3+ Sodium 135 L Potassium 4.0 Chloride 105 Carbon Dioxide 25.0 Anion Gap 5 BUN 11 Creatinine 0.81 Estim Creat Clear Calc 136.85 Est GFR (MDRD) Af Amer 128 Est GFR (MDRD) Non-Af 105 BUN/Creatinine Ratio 13.6 Glucose 170 H Calcium 9.1 Total Bilirubin 1.00 AST 32 ALT 34 Alkaline Phosphatase 102 Total Protein 8.1 Albumin 3.2 Globulin 4.9 H Albumin/Globulin Ratio 0.7 L Lipase 100 H Urine Color Yellow Urine Clarity Clear Urine pH 5.0 Ur Specific [place] 1.025 Urine Protein 30 H Urine Glucose (UA) 250 H Urine Ketones 15 H Urine Occult Blood 10 H Urine Nitrite Negative Urine Bilirubin 1 H Urine Urobilinogen 1 H Ur Leukocyte Esterase 25 H Urine RBC 0-5 SEEN Urine WBC 0-5 SEEN Ur Squamous Epith Cells 0 SEEN Urine Bacteria 0 SEEN Urine Mucus 1+ Radiography Diagnostic Testing: Clinical Impression(s) from Imaging Studies Abdomen/Pelvis CT 05/14/24 20:32 IMPRESSION: Cholelithiasis. Splenomegaly. Right renal cysts. Electronically Signed: Asher Priest DO at 22:10 EDT Reading Location ID and State: [facility] / [place] Tel [phone], Service support , Discharge Plan Triage Chief Complaint: Abd Pain ED Provider: Louie Coyle Dx/Rx/DC Orders Instructions: ED Abdominal Pain Unkn Cause Male... Prescriptions: New ondansetron 4 mg tablet,disintegrating 4 mg PO Q8H PRN PRN (Reason: Nausea) Qty: 14 0RF No Action atorvastatin 40 MG tablet 40 mg PO QHS Patient Comments: cholesterol albuterol sulfate 2.5 MG/3 ML solution for nebulization 2.5 mg inhalation Q6H PRN PRN (Reason: Sob &/Or Wheezing) Patient Comments: breathing glimepiride 2 MG tablet 2 mg PO DAILY Patient Comments: diabetes citalopram 20 MG tablet 30 mg PO DAILY Patient Comments: depression lisinopril 10 MG tablet 10 mg PO DAILY Patient Comments: blood pressure fluticasone furoate-vilanterol [Breo Ellipta] 1 EACH blister with device 1 ea IH DAILY Qty: 1 1RF Patient Comments: breathing albuterol sulfate [Ventolin HFA] 1 INHALER inhaler 2 puff inhalation Q2H PRN PRN (Reason: COUGH/WHEEZE) Qty: 0 0RF Patient Comments: breathing omeprazole 40 MG capsule,delayed release(DR/EC) 40 mg PO BID insulin detemir U-100 100 UNITS/ML insulin pen 50 units subcut QHS ibuprofen 800 MG tablet 800 mg PO Q8H PRN (Reason: Pain 1-10 Or Fever) loperamide [Imodium A-D] 2 mg capsule 2 mg PO Q4H PRN (Reason: loose stool) Qty: 10 0RF Rx Instructions: administer after each loose stool until symptoms controlled; do not exceed 8 mg per 24 hrs Jardiance 25 mg tablet 25 mg PO DAILY insulin lispro 100 unit/mL insulin pen 30 unit subcut QPM Primary Care Provider: Gerardo Borrego Referrals: Gerardo Borrego MD [Primary Care Provider] - Print Language: Yemeni Disposition Disposition: Home, Self Care Discharge Date/Time: 05/14/24 23:00
[2024-05-14] MEDS: 0.9% Normal Saline (1000mL) 1,000 ML 999 ML IV (20:48)
[2024-05-14] MEDS: Ondansetron 4 MG/2 ML Vial IV (20:48)
[2024-05-14] MEDS: Morphine 4 MG/ML Syringe IV (20:48)
[2024-05-14 20:51] LABS: Bacteria 0 SEEN /hpf (None Seen); Squamous Epithelial Cells - UA 0 SEEN /hpf (0-5)
[2024-05-14 20:53] LABS: Color, Urine Yellow (Yellow); Glucose, Dipstick 250 mg/dl (Normal); Ketone-Dipstick 15 mg/dl (Negative); Leukocyte Esterase-Dipstick 25 /ul (Negative); Nitrite-Dipstick Negative (Negative); Occult Blood-Urine 10 /ul (Negative); Protein-Dipstick 30 mg/dl (Negative); Specific Gravity, Urine 1.025 (1.002-1.030); Urine Clarity Clear (Clear); Urine Urobilinogen 1 mg/dl (Normal)
[2024-05-14 20:53] LABS: Absolute Lymphocyte Count 4.63 X10^3/uL (0.83-4.51); Absolute Neutrophil Count 2.8 X10^3/uL (2.0-7.7); Basophil# 0.03 X10^3/uL; Basophil% 0.4 % (0-1); Eosinophil# 0.16 X10^3/uL; Hematocrit 41.9 % (40-54); Hemoglobin 14.4 g/dL (13.0-16.5); Lymphocyte # 4.63 X10^3/ul (0.83-4.51); Lymphocyte % 56.7 % (19-41); Mean Corp Hgb Conc 34.4 g/dL (32-36); Mean Corpuscular Hgb 27.7 pg (27.0-32.0); Mean Corpuscular Volume 80.7 fL (80-94); Mean Platelet Vol. 10.3 fl (6.2-12.0); Monocyte# 0.51 X10^3/uL; Monocyte% 6.2 % (0-10); NRBC Flagged by Analyzer 0 % (0-5); Neutrophil # 2.79 X10^3/uL (2.7-7.7); Neutrophil % 34.1 % (47-70); POSITIVE MORPHOLOGY YES; Platelet Count 169 K/mm3 (150-450); RBC Distribution Width CV 13.6 % (11.6-14.6); RBC Distribution Width SD 39.6 fl (35.1-43.9); Red Blood Count 5.19 M/mm3 (4.6-6.2); White Blood Count 8.2 K/mm3 (4.4-11.0)
[2024-05-14 20:58] LABS: Urine Bilirubin Dipstick 1 mg/dL (Negative)
[2024-05-14 20:59] LABS: White Blood Cells 0-5 SEEN /hpf (0-5)
[2024-05-14 21:00] LABS: Red Blood Cells-Urine 0-5 SEEN /hpf (0-5)
[2024-05-14 21:01] LABS: Mucous, Urine 1+ /hpf (<or=2+)
[2024-05-14 21:11] LABS: ALB/GLOB Ratio 0.7 RATIO (0.9-2.4); AST(SGOT) 32 U/L (15-37); Alanine Aminotransfer ALT/SGPT 34 U/L (16-61); Albumin, Serum 3.2 g/dL (3.2-5.0); Alkaline Phosphatase 102 U/L (45-117); Anion Gap 5 (5-15); BUN 11 mg/dL (7-18); BUN/Creat Ratio 13.6 RATIO (10-20); Calcium,Total 9.1 mg/dL (8.5-10.1); Chloride 105 mmol/L (98-107); Creatinine, Serum 0.81 mg/dL (0.70-1.30); EST Glomerular Filtration Rate 105 mL/min (>60); Est Glom Filt Rate - Afr Amer 128 mL/min (>60); Estimated Creatinine Clearance 136.85 ml/min; Globulin 4.9 g/dL (2.2-4.2); Glucose 170 mg/dL (74-106); Lipase 100 U/L (13-75); Protein, Total 8.1 g/dL (6.4-8.2); Sodium Level 135 mmol/L (136-145)
[2024-05-14 21:17] LABS: Differential Indicated SCAN CRITERIA MET
[2024-05-14 21:23] LABS: Atypical Lymphocyte 1+ %; Reactive Lymphocyte 3+
[2024-05-14 22:14] VITALS: BP 136/72; PULSE 75; RESP 16; O2SAT 96
[2024-05-14 22:59] VITALS: BP 136/85; PULSE 81; RESP 18; TEMP 36.2; O2SAT 96
[2024-05-15 11:18] LABS: Pathologist Review Reviewed
== END 2024-05-14 23:00 | disposition home or self-care (01) ==
PROVIDERS: Emergency Provider Student in an Organized Health Care Education/Training Program; PCP Family Medicine; Visit Provider Student in an Organized Health Care Education/Training Program
DX: R11.2 Nausea with vomiting, unspecified (principal); J44.9 Chronic obstructive pulmonary disease, unspecified; E11.9 Type 2 diabetes mellitus without complications; N28.1 Cyst of kidney, acquired; I10 Essential (primary) hypertension; Z87.891 Personal history of nicotine dependence; R16.1 Splenomegaly, not elsewhere classified; R19.7 Diarrhea, unspecified; R10.9 Unspecified abdominal pain
CPT/HCPCS: 74177; 80053; 81001; 83690; 85025; 96361; 96374; 96375; 99283; J7030; Q9967; A4216; J2405

== ENCOUNTER 2025-07-06 15:02 | Emergency (ER) | payer MEDICARE, SELFPAY ==
[2025-07-06] VITALS (9 sets, daily range): BP systolic 135–164; BP diastolic 74–106; PULSE 72–92; RESP 14–20; TEMP 36.5–36.6; O2SAT 93–99; BMI 40.1
--- NOTE | 2025-07-06 15:31 | EKG12_ITS ---
Test Reason : DYSP Blood Pressure : */* mmHG Vent. Rate : 82 BPM Atrial Rate : 82 BPM P-R Int : 172 ms QRS Dur : 94 ms QT Int : 388 ms P-R-T Axes : 57 89 70 degrees QTcB Int : 453 ms Normal sinus rhythm Normal ECG Confirmed by WILLIAMS MIRANDA, KALLIE ([id number]), supervising film or videotape editor TANESHA ROJO ([id number]) on 07/08/2025 8:28:35 AM Referred By: Confirmed By: KALLIE KRAMRE MD
--- NOTE | 2025-07-06 15:34 | ED.VIS.DYS ---
HPI History of Present Illness Chief Complaint: Shortness of Breath Informant: patient Narrative Narrative: Patient is a 55-year-old male with history of pneumonia, COPD, obstructive sleep apnea (notes not recently been compliant with his CPAP), hypertension, diabetes mellitus, DVT (not currently on anticoagulation) presenting with worsening shortness of breath and wheezing. Patient states he has had URI symptoms for the past 2 to 4 days. Started with nasal congestion that moved down to sore throat and then settled in his chest. He feels that despite using his nebulizers last night he just could not catch his breath. He denies any fevers. Denies any swelling of his legs. Denies any chest pain. States he is coughing and it is a wet cough but is not getting it up appropriately. Because he could not catch his breath EMS was called and he came to the emergency room. He notes that he used to be able to call his doctor and get a prescription for prednisone when these things happen (he states this feels like a COPD exacerbation) but now he has to be seen and he has not been able to get in. Denies any associated nausea, vomiting or change in bowel movements.'s are for any urinary symptoms. As he is having some mild abdominal pain but feels more like it sore from coughing a lot. No other complaints or concerns per at this time. [facility] Medical History Diverticulitis Femur fracture Rib fracture H. pylori infection Cholecystitis Fatty liver Depression BPH (benign prostatic hyperplasia) DVT (deep venous thrombosis) GERD (gastroesophageal reflux disease) Diverticula of colon HTN (hypertension) COPD (chronic obstructive pulmonary disease) Diabetes mellitus Home Medications ?Medication ?Instructions ?Recorded ?Last Taken ?Type albuterol sulfate 2.5 mg/3 mL 2.5 mg inhalation Q6H PRN PRN Sob 01/03/16 11/18/16 04:00 History (0.083 %) solution for nebulization &/Or Wheezing atorvastatin 40 mg tablet 40 mg PO QHS 01/03/16 08/05/19 History citalopram 20 mg tablet 30 mg PO DAILY 01/03/16 08/06/19 History glimepiride 2 mg tablet 2 mg PO DAILY 01/03/16 08/06/19 History lisinopril 10 mg tablet 10 mg PO DAILY 01/03/16 08/06/19 History fluticasone furoate 100 1 ea IH DAILY ##1 05/25/16 08/06/19 Rx mcg-vilanterol 25 mcg/dose inhalation powder (Breo Ellipta) albuterol sulfate 90 mcg/actuation 2 puff inhalation Q2H PRN PRN 11/20/16 08/06/19 Rx aerosol inhaler (Ventolin HFA) COUGH/WHEEZE ##0 insulin detemir U-100 100 unit/mL 50 units subcut QHS 08/06/19 08/05/19 History (3 mL) subcutaneous pen omeprazole 40 mg capsule,delayed 40 mg PO BID 08/06/19 08/06/19 History release ibuprofen 800 mg tablet 800 mg PO Q8H PRN Pain 1- Or 09/11/20 Unknown History Fever loperamide 2 mg capsule (Imodium 2 mg PO Q4H PRN loose stool #10 12/06/22 Unknown Rx A-D) caps empagliflozin 25 mg tablet 25 mg PO DAILY 05/14/24 Unknown History (Jardiance) insulin lispro 100 unit/mL 30 unit subcut QPM 05/14/24 Unknown History subcutaneous pen ondansetron 4 mg disintegrating 4 mg PO Q8H PRN PRN Nausea #14 tabs 05/14/24 Unknown Rx tablet azithromycin 250 mg tablet See Rx Instructions PO .COMPLEX #6 07/06/25 Unknown Rx tabs prednisone 20 mg tablet 40 mg (2 x 20 mg) PO DAILY #8 tabs 07/06/25 Unknown Rx Allergy/AdvReac Type Severity Reaction Status Date / Time No Known Allergies Allergy Verified 05/14/24 20:15 Social History household members: none Smoking Status: Former smoker substance use type: does not use ROS ROS ED Constitutional Constitutional ED: Denies chills or fever(s) Cardiovascular Cardiovascular: Denies chest pain or palpitations Respiratory/Chest Respiratory/Chest: Reports cough, dyspnea and sputum Gastrointestinal Gastrointestinal: Reports abdominal pain; Denies diarrhea, nausea or vomiting Musculoskeletal Musculoskeletal: Denies arthralgias or myalgias Integumentary Denies rash Neurologic Neurologic: Denies weakness Hematologic/Lymphatic Hematologic/Lymphatic: Denies easy bleeding or easy bruising EXAM Physical Exam Const Vital Signs: 07/06/25 15:02 07/06/25 15:02 07/06/25 15:07 Temperature 97.7 F L 97.7 F L Temperature Source Oral Oral Pulse Rate 80 80 Respiratory Rate 20 H 20 H Respiratory Effort Short of Breath Respiratory Depth Normal Respiratory Pattern Tachypnea Blood Pressure 164/94 H 164/94 H Blood Pressure Mean 117 117 Pulse Ox 99 99 Oxygen Delivery Method Room Air Room Air 07/06/25 15:42 07/06/25 15:43 07/06/25 16:25 Temperature 97.9 F Temperature Source Oral Pulse Rate 92 92 72 Respiratory Rate 20 H 20 H 20 H Respiratory Effort Respiratory Depth Respiratory Pattern Tachypnea Blood Pressure 157/106 H Blood Pressure Mean 123 Pulse Ox 93 93 Oxygen Delivery Method Room Air Room Air 07/06/25 16:58 07/06/25 17:29 Temperature 97.9 F Temperature Source Oral Pulse Rate 86 81 Respiratory Rate 19 H 14 Respiratory Effort Respiratory Depth Respiratory Pattern Normal Blood Pressure 135/78 H Blood Pressure Mean 97 Pulse Ox 97 Oxygen Delivery Method Room Air Positive well nourished and well developed General Appearance ED: well developed and NAD HEENT Reports moist mucous membranes HEENT Narrative: Nasal congestion present. Air-fluid level noted behind the right tympanic membrane. No signs of otitis media bilaterally. Normal ear canals present. Mildly injected oropharynx present. Eyes PERRL Neck supple and no JVD Resp Resp Narrative: Course/rhonchorous breath sounds throughout. No crackles appreciated. Auscultation: Negative for wheezes or diminished lung sounds Cardio regular rate, regular rhythm and no murmurs Cardio Narrative: 2+ radial and PT pulses GI non-tender, non-distended and no masses Palpation: soft; Negative for tender or guarding Extremity normal to inspection General Extremety ED: Negative for edema General Extremity: Negative for edema Neuro oriented x3 Sensorium / Orientation: alert Motor Exam: Negative for general weakness Psych mental status grossly normal Skin no wounds MDM MDM MDM Narrative Medical decision making narrative: Patient evaluated for about 3 to 4 days of worsening URI symptoms that is now causing shortness of breath. He is 99% on room air and does not appear to be in any type of respiratory distress. He has rhonchorous breath sounds and his presentation is most consistent with COPD exacerbation. It was preceded by a viral illness. Patient be given DuoNeb in the emergency room and will obtain screening EKG as he does have a history of coronary artery disease. Patient would prefer to not obtain blood work at this time possible especially as he currently does not have insurance. While he does have a history of DVT his presentation is much more consistent with COPD exacerbation/pneumonia and I have a lower clinical suspicion for PE especially as he is not tachycardic, hypoxic nor tachypneic. He does not have any clinical signs or symptoms consistent with a DVT. Patient given a DuoNeb. Repeat evaluation he still feels short of breath and he actually has increased wheezing and respiratory noises. Given additional 2 albuterol's with further improvement. Chest x-ray viewed by myself as well as urology does not show any acute process, specifically no pneumothorax, pleural effusion or infiltrates. Patient is feeling much better. He still has some expiratory wheezing but has improved air movement as well as improvement in his feeling of breathing. He is ambulated in the ER with no hypoxia. Will discharge him home with a prescription for azithromycin and prednisone and treat him as a viral illness with associated COPD exacerbation. Counseled importance of using his aerosols at home as well as resuming his BiPAP. Given return precautions. Discharged home in stable condition. Radiography Diagnostic Testing: Clinical Impression(s) from Imaging Studies Chest X-Ray 07/06/25 15:55 IMPRESSION: No radiographic evidence of an acute pulmonary infiltrate. - Other findings discussed above. Reading Location: [facility] Rhythm Strip Rhythm Strip: Sinus Rhythm Rate: 82 Ectopy: None EKG Initial EKG: Attestation: I personally reviewed and interpreted this EKG as follows: Interpretation: Sinus Rhythm Comments: Normal sinus rhythm rate of 82 bpm Normal axis Normal intervals Normal ST segments Discharge Plan Triage Chief Complaint: Shortness of Breath ED Provider: Melissa Holly Dx/Rx/DC Orders Clinical Impression: Viral illness, COPD exacerbation Instructions: ED COPD Flare, ED Viral Syndrome (Adult) Prescriptions: New prednisone 20 mg tablet 40 mg PO DAILY Qty: 8 0RF azithromycin 250 mg tablet See Rx Instructions .ROUTE .COMPLEX Qty: 6 0RF Rx Instructions: For 250 mg dose pack: take 500 mg today (day 1), then 250 mg for 4 days (days 2-5) No Action atorvastatin 40 MG tablet 40 mg PO QHS Patient Comments: cholesterol albuterol sulfate 2.5 MG/3 ML solution for nebulization 2.5 mg inhalation Q6H PRN PRN (Reason: Sob &/Or Wheezing) Patient Comments: breathing glimepiride 2 MG tablet 2 mg PO DAILY Patient Comments: diabetes citalopram 20 MG tablet 30 mg PO DAILY Patient Comments: depression lisinopril 10 MG tablet 10 mg PO DAILY Patient Comments: blood pressure fluticasone furoate-vilanterol [Breo Ellipta] 1 EACH blister with device 1 ea IH DAILY Qty: 1 1RF Patient Comments: breathing albuterol sulfate [Ventolin HFA] 1 INHALER inhaler 2 puff inhalation Q2H PRN PRN (Reason: COUGH/WHEEZE) Qty: 0 0RF Patient Comments: breathing omeprazole 40 MG capsule,delayed release(DR/EC) 40 mg PO BID insulin detemir U-100 100 UNITS/ML insulin pen 50 units subcut QHS ibuprofen 800 MG tablet 800 mg PO Q8H PRN (Reason: Pain 1-10 Or Fever) loperamide [Imodium A-D] 2 mg capsule 2 mg PO Q4H PRN (Reason: loose stool) Qty: 10 0RF Rx Instructions: administer after each loose stool until symptoms controlled; do not exceed 8 mg per 24 hrs Jardiance 25 mg tablet 25 mg PO DAILY insulin lispro 100 unit/mL insulin pen 30 unit subcut QPM ondansetron 4 mg tablet,disintegrating 4 mg PO Q8H PRN PRN (Reason: Nausea) Qty: 14 0RF Primary Care Provider: Gerardo Borrego Referrals: Gerardo Borrego MD [Primary Care Provider, Family Practice] Activity Restrictions/Additional Instructions: Use your nebulizer every 4-6 hours as needed for shortness of breath and chest tightness. He do not have a pneumonia today. If you are worsening despite starting the treatments today please return to the emergency room at that time we might need to do blood work or consider admission. Please resume your CPAP at night as we discussed. If you develop a fever please return to the emergency room. I Suspect you have a viral illness that is causing a COPD exacerbation Print Language: Pashto Disposition Disposition: Home, Self Care
--- NOTE | 2025-07-06 15:55 | RAD_ITS ---
PROCEDURE: CHEST PA AND LATERAL 07/06/2025 REASON FOR EXAM: COUGH, SOB TECHNIQUE: Procedure Code: RADCXR Modality: DX Procedure: CHEST PA AND LATERAL COMPARISON: Chest x-ray January 29, 2024. Prior report is not available FINDINGS: Lungs: The lungs are symmetrically expanded. Lung volumes are within normal limits. There is no consolidation. Mildly coarsened reticular lung markings again noted likely secondary to chronic interstitial thickening. There is no peribronchial thickening. There is no pulmonary vascular redistribution. Pleura: No significant pleural effusion seen. There is no evidence of pneumothorax. Mediastinum: There is no mediastinal widening or mediastinal shift. Heart: The cardiac silhouette is not enlarged. [place]: The pulmonary [place] are not enlarged or retracted. Osseous: No acute fracture is seen. Slight bony deformity along the right lateral mid chest wall likely due to old injuries. RAD/Chest PA and Lateral IMPRESSION: No radiographic evidence of an acute pulmonary infiltrate. - Other findings discussed above. Reading Location: [id number]
--- OUTSIDE RECORDS SUMMARY | 2025-07-06 16:21 | XMS RPT_ITS | CCD ---
Author Organization [facility] Inform ion Partnership [facility] Care Team Providers Care Tight Barrel Inspector Name Role Phone Americo Borrego MD Unavailable Americo Borrego MD Primary Care Provider Bruce Dong Attending Unavailable Americo Borrego Primary Care Unavailable Americo Borrego Primary Care Unavailable Louie Coyle Attending Unavailable Americo Borrego MD Unavailable Americo Borrego MD Primary Care Provider Navdeep VETERINARY ASSISTANT.Malika BORRERO Unavailable Luther VETERINARY ASSISTANT.Dean BORRERO Unavailable AMERICO BORREGO Attending Unavailable AMERICO BORREGO Primary Care Unavailable AMERICO BORREGO Referring Unavailable AMERICO BORREGO Primary Care Unavailable AMERICO BORREGO Attending Unavailable AMERICO BORREGO Primary Care Unavailable AMERICO BORREGO Primary Care Unavailable AMERICO BORREGO Referring Unavailable AMERICO BORREGO Primary Care Unavailable AMERICO BORREGO Attending Unavailable AMERICO BORREGO Primary Care Unavailable AMERICO BORREGO Referring Unavailable AMERICO BORREGO Primary Care Unavailable AMERICO BORREGO Attending Unavailable AMERICO BORREGO Primary Care Unavailable AMERICO BORREGO Referring Unavailable AMERICO BORREGO Primary Care Unavailable Medications Current Medications Medication Drug Class(es) Dates Sig (Normalized) Sig (Original) acetaminophen 500 mg oral tablet (20 sources) take 1 tablet by mouth every eight hours as needed acetaminophen (TYLENOL EXTRA STRENGTH) 500 mg tablet Take 500 mg by mouth every 8 hours as needed. Active Comment on above: Take 500 mg by mouth every 8 hours as needed. acetaminophen 325 mg / oxyCODONE hydrochloride 5 mg oral tablet (4 sources) Opioid Agonist Start: 09-11-2020 take 1 tablet by mouth every six hours as needed Oxycodone-Acetamino phen Active 1 TABLET PO EVERY 6 HOURS NEEDED September 11, 2020 1:00am Start: 12-08-2019 End: 12-11-2019 take 1 tablet by mouth every six hours as needed Oxycodone-Acetaminophen Discontinued 1 TABLET PO EVERY 6 HOURS NEEDED 09 18December 08, 2019 December 11, 2019 1:08am [id number] 200 actuat albuterol 0.09 mg/actuat metered dose inhaler (20 sources) beta2-Adrenergic Agonist Start: 10-28-2023 End: 06-13-2025 take 2 puff(s) by inhalation every four hours as needed for wheezing albuterol HFA (PROVENTIL HFA, VENTOLIN HFA) 90 mcg/actuation inhaler Inhale 2 puffs as instructed every 4 hours as needed for wheezing/shortness of breath. 3 each 3 06/14/2025 Active Start: 12-07-2022 End: 08-24-2023 take 2 puff(s) by inhalation every four hours as needed for wheezing albuterol HFA (PROVENTIL HFA, VENTOLIN HFA) 90 mcg/actuation inhaler Inhale 2 Puffs as instructed every 4 hours as needed for wheezing/shortness of breath. 1 Each 3 08/24/2023 Active Start: 07-09-2022 take 2 puff(s) by in halation every four hours as needed for wheezing albuterol HFA (PROVENTIL HFA, VENTOLIN HFA) 90 mcg/actuation inhaler Inhale 2 Puffs as instructed every 4 hours as needed for wheezing/shortness of breath. 1 Each 3 07/09/2022 Active Start: 12-03-2021 End: 07-09-2022 take 2 puff(s) by mouth every four hours for wheezing albuterol HFA (PROAIR HFA) 90 mcg/actuation inhaler Indications: Chronic obstructive pulmonary disease, unspecified COPD type (HCC) inhale 2 puffs by mouth every 4 hours if needed for wheezing or shortness of breath 25.5 g 3 12/03/2021 07/09/2022 Discontinued Start: 11-20-2016 take 1 puff(s) by in halation every two hours as needed Albuterol Sulfate (Ventolin Hfa) 1 INHALER inhaler Active 2 PUFF INHALATION EVERY 2 HOURS NEEDED 0 November 20, 2016 12:12pm Start: 01-03-2016 End: 01-08-2025 take 1 dose by inhalation every six hours for wheezing albuterol (PROVENTIL) 2.5 mg /3 mL (0.083 %) nebulizer solution inhale contents of 1 vial in nebulizer every 6 hours if needed for wheezing or shortness of breath 300 mL 11 01/08/2025 Active Start: 01-03-2016 End: 11-20-2016 take 1 puff(s) by inhalation every four hours as needed Albuterol Sulfate (Ventolin Hfa) 1 INHALER inhaler Discontinued 2 PUFF INHALATION EVERY 4 HOURS NEEDED January 03, 2016 12:00am November 20, 2016 12:12pm Start: 09-16-2015 End: 10-14-2015 take 2.5 mg by inhalation three to four times daily Albuterol Sulfate Discontinued 2.5 MG INHALATION DIRECTED September 16, 2015 7:25pm October 14, 2015 12:57pm use 3 to four times a day programmed Start: 08-16-2015 End: 09-16-2015 take 2.5 mg by inhalation every six hours as needed Albuterol Sulfate Discontinued 2.5 MG INHALATION EVERY 6 HOURS NEEDED August 16, 2015 8:40am September 16, 2015 7:25pm Start: 01-23-2015 End: 08-16-2015 take 2.5 mg by inhalation every four hours as needed for wheezing Albuterol Sulfate Discontinued 2.5 MG INHALATION EVERY 4 HOURS NEEDED January 23, 2015 12:00am August 16, 2015 8:41am Use q4 hours and PRN for wheezing Start: 06-29-2014 End: 04-04-2015 take 1 puff(s) by inhalation every four hours as needed Albuterol Sulfate (Proair Hfa) 1 PUFF inhaler Discontinued 1 - 2 PUFF INHALATION EVERY 4 HOURS NEEDED June 29, 2014 12:00am April 04, 2015 8:55am Comment on above: inhale contents of 1 vial in nebulizer every 6 hours if needed for wheezing or shortness of breath inhale 2 puffs by mo uth every 4 hours if needed for wheezing or shortness of breath Inhale 2 Puffs as in structed every 4 hours as needed for wheezing/shortness of breath. atorvastatin 40 mg oral tablet (20 sources) HMG-CoA Reductase Inhibitor Start: 01-03-20 End: 01-09-20 take 1 tablet by mouth once daily at bedtime atorvastatin (LIPITOR) 40 mg tablet Indications: Hyperlipidemia, unspecified hyperlipidemia type Take 1 tablet by mouth daily at bedtime. 90 tablet 3 01/08/2025 Active Comment on above: Take 1 tablet by sunshine daily at bedtime. azithromycin 250 mg oral tablet (3 sources) Macrolide Antimicrobial Start: 09-21-20 End: 09-26-20 take 2 tablets by mouth once daily, then take 1 tablet by mouth once daily azithromycin (ZITHROMAX) 250 mg tablet Indications: SOB (shortness of breath) , COPD with exacerbation (HCC) Take 2 tablets by mouth once daily for 1 day, THEN 1 tablet once daily for 4 days. 6 tablet 0 09/21/2023 09/26/2023 Active Start: 02-07-2015 End: 02-10-2015 take 2 tablets by mouth once daily, then take 1 tablet by mouth once daily Azithromycin (Zithromax Z-Travis) 250 MG tablet Discontinued 250 MG PO DIRECTED 1 February 07, 2015 12:00am February 10, 2015 7:41am TAKE 2 TABLETS 1ST DAY THEN 1 TABLET DAILY FOR NEXT 4 DAYS. Comment on above: Take 2 tablets by mo [facility] once daily for 1 day, THEN 1 tablet once daily for 4 days. BIPAP (20 sources) Start: 07-17-2014 BIPAP Indications: Sleep apnea Initiate BiPAP @ 23/17 cm of water with humidification. Mask (per patient preference) optional chin strap (if indicated) , filters, tubing, humidifier and lifetime supplies. 1 Device 0 07/17/2014 Active Comment on above: Initiate BiPAP @ 23/ 17 cm of water with humidification. Mask (per patient preference) optional chin strap (if indicated) , filters, tubing, humidifier and lifetime supplies. citalopram 20 mg oral tablet (20 sources) Serotonin Reuptake Inhibitor Start: 12-14-2024 take 1 tablet by mouth once daily, then take 1.5 tablets by mouth once daily citalopram (CELEXA) 20 mg tablet Take 1 tablet by mouth once daily. Take 1.5 tablets by mouth once daily. 45 tablet 5 12/14/2024 Active Start: 11-03-2021 End: 11-29-2024 take 1 tablet by mouth once daily, then take 1.5 tablets by mouth once daily citalopram (CELEXA) 20 mg tablet Take 1 tablet by mouth once daily. Take 1.5 tablets by mouth once daily. 90 tablet 3 03/23/2024 Active Start: 01-03-2016 take 30 mg by mouth once daily Citalopram Active 30 MG PO DAILY January 03, 2016 12:00am Start: 10-14-2015 End: 12-02-2015 take 30 mg by mouth once daily Citalopram Discontinued 30 MG PO DAILY October 14, 2015 1:00am December 02, 2015 2:17pm Comment on above: TAKE ONE AND ONE-CANDIDA F TABLETS EVERY DAY Take 1 tablet by sunshine th once daily. COMPOUNDED PRESCRIPTION (20 sources) Start: 01-03-20 14 COMPOUNDED PRESCRIPTION 1 Each four times daily as needed. NEBULIZER FOR HOME USE. DX: COPD 1 Each 0 01/02/2014 Active Comment on above: 1 Each four times da luci as needed. NEBULIZER FOR HOME USE. DX: COPD empagliflozin 25 mg oral tablet (20 sources) Sodium-Glucose Cotransporter 2 Inhibitor Start: 10-03-20 End: 09-28-20 25 take 1 tablet by mouth once daily, then take 1 tablet by mouth once daily in the morning empagliflozin (JARDIANCE) 25 mg tablet Indications: Type 2 diabetes mellitus without complication, 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 usp insulin use (HCC) Take 1 tablet by mouth once daily. Take 1 tablet once daily in the morning 30 tablet 09/28/2024 09/28/2025 Active Start: 06-16-2023 take 1 tablet by sunshine th once daily, then take 1 tablet by mouth once daily in the morning empagliflozin (JARDIANCE) 10 mg tablet Take 1 tablet by mouth once daily. Take 1 tablet once daily in the morning 30 tablet 06/16/2023 Active Comment on above: Take 1 tablet by sunshine th once daily. Take 1 tablet once daily in the morning 14 actuat fluticasone furoate 0.1 mg/actuat / vilanterol 0.025 mg/actuat dry powder inhaler (20 sources) Corticosteroid, beta2-Adrenergic Agonist Start: 11-28-2023 fluticasone-vilanterol (BREO ELLIPTA) 100-25 mcg/dose inhaler Indications: Chronic obstructive pulmonary disease, unspecified COPD type (HCC) take 1 inhalation by mouth once daily 3 Each 3 11/28/2023 Active Start: 06-28-2022 End: 11-26-2023 fluticasone-vilanterol (BREO ELLIPTA) 100-25 mcg/dose inhaler Indications: Chronic obstructive pulmonary disease, unspecified COPD type (HCC) take 1 inhalation by mouth once daily 3 Each 3 06/29/2023 11/26/2023 Discontinued Start: 05-25-2016 take 1 dose by inhal ation once daily Fluticasone Furoate-Vilanterol (Breo Ellipta) 1 EACH blister with device Active 1 EACH IH DAILY May 25, 2016 12:00am Start: 11-30-2015 End: 12-02-2015 take 1 dose by inhalation once daily Fluticasone Furoate-Vilanterol (Breo Ellipta 100-25 Mcg Inh) 1 EACH Aer.Montse Discontinued 1 PUFF INHALATION DAILY November 30, 2015 1:00am December 02, 2015 2:13pm Start: 04-04-2015 End: 11-07-2015 take 1 dose by inhalation once daily Fluticasone Furoate-Vilanterol (Breo Ellipta) 1 EACH Aer.Montse Discontinued 1 EACH IH DAILY April 04, 2015 12:00am November 07, 2015 5:25pm Comment on above: take 1 inhalation by mouth once daily glimepiride 2 mg oral tablet (2 sources) Sulfonylurea Start: take 2 mg by mouth once daily Glimepiride Active 2 MG PO DAILY January 03, 2016 12:00am homatropine methylbromide 0.3 mg/ml / HYDROcodone bitartrate 1 mg/ml oral solution (1 source) Opioid Agonist, Cholinergic Muscarinic Agonist Start: Hydrocodone-Homatro pine (Hycodan) 5-1.5 mg/5 mL (5 mL) syrup Active 5 ML PO 4 TIMES DAILY 140 7 January 29, 2024 Start: 01-29-2024 Hydrocodone-Ho matropine (Hycodan) 5-1.5 mg/5 mL (5 mL) syrup Active 5 ML PO 4 TIMES DAILY 140 7 January 29, 2024 ibuprofen 800 mg oral tablet (2 sources) Nonsteroidal Anti-inflammatory Drug Start: 09-11-2020 take 800 mg by mouth every eight hours Ibuprofen Active 800 MG PO Q8H September 11, 2020 1:00am 3 ml insulin glargine 100 unt/ml pen injector (7 sources) Insulin Analog Start: 08-27-2024 insulin glargine (LANTUS SOLOSTAR U-100 INSULIN) 100 unit/mL (3 mL) Inject 40 Units subcutaneously two times a day. 30 mL 11 08/27/2024 Active 3 ml insulin lispro 100 unt/ml pen injector (20 sources) Insulin Analog Start: 05-22-2024 insulin lispro (HUMALOG KWIKPEN INSULIN) 100 unit/mL Inject 20 Units subcutaneously daily with dinner. 15 mL 5 05/22/2024 Active Start: 06-16-2023 End: 05-22-2024 insulin lispro (HUMALOG KWIK PEN INSULIN) 100 unit/mL Inject 30 Units subcutaneously daily with dinner. 15 mL 5 03/23/2024 05/22/2024 Discontinued Start: 09-09-2021 End: 07-09-2022 insulin lispro (HUMALOG KWIK PEN INSULIN) 100 unit/mL Indications: Type 2 diabetes mellitus without complication, 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 usp insulin use (HCC) Inject 20 Units subcutaneously daily with dinner. 1 Each 5 07/09/2022 Active Comment on above: Inject 20 Units subc utaneously daily with dinner. Inject 30 Units subc utaneously daily with dinner. lisinopril 20 mg oral tablet (20 sources) Angiotensin Converting Enzyme Inhibitor Start: 3 End: take 1 tablet by mouth once daily lisinopril (ZESTRIL) 20 mg tablet Indications: Essential hypertension Take 1 tablet by mouth once daily. 90 tablet 3 01/08/2025 Active Start: 01-03-2016 take 10 mg by mouth once daily Lisinopril Active 10 MG PO DAILY January 03, 2016 12:00am Start: 07-01-2014 End: 02-10-2015 take 5 mg by mouth twice daily Lisinopril Discontinued 5 MG PO TWICE A DAY 60 July 01, 2014 12:00am February 10, 2015 7:41am Comment on above: [facility] loperamide hydrochloride 2 mg oral capsule (2 sources) Opioid Agonist Start: 3 Loperamide (Imodium A-D) 2 mg capsule Active 2 MG PO Q4H December 06, 2022 1:00am administer after each loose stool until symptoms controlled; do not exceed 8 mg per 24 hrs loratadine 10 mg oral tablet (20 sources) Start: 6 take 1 tablet by mouth once daily loratadine (CLARITIN) 10 mg tablet Take 1 tablet by mouth once daily. 30 tablet 06/11/2016 Active Comment on above: [facility]. omeprazole 20 mg delayed release oral capsule (20 sources) Proton Pump Inhibitor Start: 2 End: 4 take 1 capsule by mouth twice daily before mealtime omeprazole (PRILOSEC) 20 mg capsule Take 1 capsule by mouth two times a day. 1/2 hr before meal. 60 capsule 09/28/2024 Active Start: 05-29-20[address] [facility] twice daily before mealtime omeprazole (PRILOSEC) 20 mg capsule Take 1 capsule by mouth twice daily. 1/2 hr before meal. 60 capsule 05/29/2021 Active Start: 08-06-2019 take 20 mg by mouth once daily Omeprazole Active 20 MG PO DAILY August 06, 2019 12:00am Start: 01-03-2016 End: 05-27-2016 take 20 mg by mouth once daily Omeprazole Discontinued 20 MG PO DAILY January 03, 2016 12:00am May 27, 2016 8:18am Comment on above: Take [address] [facility] twice daily. 1/2 hr before meal. ondansetron 4 mg disintegrating oral tablet (2 sources) Serotonin-3 Receptor Antagonist Start: 3 take 4 mg by mouth every eight hours as needed Ondansetron Active 4 MG PO EVERY 8 HOURS NEEDED December 06, 2022 1:00am Completed/Discontinued Medications Medication Drug Class(es) Dates Sig (Normalized) Sig (Original) acetaminophen 325 mg / HYDROcodone bitartrate 5 mg oral tablet (2 sources) Opioid Agonist Start: 04-20-2019 End: 04-29-2019 take 1 tablet by mouth every six hours as needed Hydrocodone-Acetami nophen Discontinued 1 TABLET PO EVERY 6 HOURS NEEDED 07 19April 20, 2019 April 29, 2019 12:09am Antibiotic-Unknown Name (2 sources) Start: 08-16-2015 End: 08-19-2015 Start: 08-16-2015 End: 08-19-2015 canagliflozin 300 mg oral tablet (14 sources) Sodium-Glucose Cotransporter 2 Inhibitor Start: 12-28-2021 End: 06-16-2023 take 1 tablet by mouth once daily at breakfast canagliflozin (INVOKANA) 300 mg tablet Take 1 tablet by mouth daily with breakfast. 30 tablet 12/25/2022 06/16/2023 Discontinued Start: 09-11-2020 take 100 mg by mouth once daily Canagliflozin Active 100 MG PO DAILY September 11, 2020 1:00am Comment on above: Take 1 tablet by sunshine daily with breakfast. doxycycline monohydrate 100 mg oral capsule (5 sources) Tetracycline-class Drug Start: 4 End: 4 take 1 capsule by mouth twice daily doxycycline monohydrate (MONODOX) 100 mg capsule Indications: Asthma with COPD with exacerbation (HCC) (HCC) Take 1 capsule by mouth two times a day for 5 days. 10 capsule 0 11/26/2023 12/01/2023 Start: 03-27-2015 End: 04-04-2015 take 100 mg by mouth twice daily Doxycycline Hyclate Discontinued 100 MG PO TWICE A DAY March 27, 2015 12:00am April 04, 2015 8:55am Comment on above: Take 1 capsule by mo [facility] two times a day for 5 days. 120 actuat formoterol fumarate 0.005 mg/actuat / mometasone furoate 0.2 mg/actuat metered dose inhaler (2 sources) Corticosteroid, beta2-Adrenergic Agonist Start: 04-01-20 End: 04-04-20 Mometasone-Formoterol (Dulera 200 Mcg/5 Mcg Inhaler) 8.8 GM Hfa.Aer.Ad Discontinued 8.8 GM IH DAILY April 01, 2015 12:00am April 04, 2015 8:55am 12 hr guaiFENesin 600 mg extended release oral tablet (20 sources) Start: 01-12-20 16 End: 01-15-20 take 1 tablet by mouth twice daily Guaifenesin (Mucus Relief Er) 600 MG tablet Discontinued 600 MG PO TWICE A DAY January 12, 2016 12:00am January 15, 2016 2:25pm Comment on above: Take 600 mg by mouth twice daily as needed. 3 ml insulin aspart, human 100 unt/ml pen injector (3 sources) Insulin Analog Start: 04-04-20 End: 06-16-20 insulin aspart U-100 (NOVOLOG FLEXPEN U-100 INSULIN) 100 unit/mL (3 mL) Indications: Type 2 diabetes mellitus without complication, 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 oil heaterman insulin use (HCC) Inject 30 Units subcutaneously daily with dinner. 15 mL 3 04/25/2023 06/16/2023 Discontinued Comment on above: Inject 30 Units subc utaneously daily with dinner. 3 ml insulin detemir 100 unt/ml pen injector (20 sources) Insulin Analog Start: 05-22-20 End: 01-09-20 insulin detemir U-100 (LEVEMIR FLEXTOUCH U-100 INSULIN) 100 unit/mL (3 mL) injection pen Indications: Type 2 diabetes mellitus without complication, 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 oil heaterman insulin use (HCC) Inject 40 Units subcutaneously two times a day. 10 Each 06/06/2024 01/08/2025 Discontinued (Changing Therapy/Dosage Form) Start: 11-28-2023 End: 05-22-2024 insulin detemir U-100 (LEVEM IR FLEXTOUCH U-100 INSULIN) 100 unit/mL (3 mL) injection pen Indications: Type 2 diabetes mellitus without complication, 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 oil heaterman insulin use (HCC) Inject 45 Units subcutaneously two times a day. 8 Each 5 11/28/2023 05/22/2024 Discontinued Start: 04-04-2023 End: 11-26-2023 insulin detemir U-100 (LEVEM IR FLEXTOUCH U-100 INSULIN) 100 unit/mL (3 mL) injection pen Indications: Type 2 diabetes mellitus without complication, 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 usp insulin use (HCC) Inject 45 Units subcutaneously twice daily. 8 Each 04/25/2023 11/26/2023 Discontinued Start: 03-01-2022 End: 07-04-2022 insulin detemir U-100 (LEVEM IR FLEXTOUCH U-100 INSULIN) 100 unit/mL (3 mL) injection pen Inject 40 Units subcutaneously twice daily. 8 Each 5 07/05/2022 Active Start: 05-26-2021 insulin detemi r U-100 (LEVEMIR FLEXTOUCH U-100 INSULIN) 100 unit/mL (3 mL) injection pen Inject 40 Units subcutaneously twice daily. 8 Pen 5 05/26/2021 Active Start: 08-06-2019 inject 50 [IU] by harris bcutaneous injection at bedtime Insulin Detemir U-100 Active 50 UNITS subcut AT BEDTIME August 06, 2019 2:22pm Start: 11-20-2016 End: 08-06-2019 Insulin Detemir U-100 (Levem ir Flextouch U100 Insulin) 100 UNITS/ML Insuln.Pen Discontinued 20 UNITS SC DAILY November 20, 2016 1:00am August 06, 2019 2:24pm Start: 11-20-2016 End: 08-06-2019 Insulin Detemir U-100 (Levem ir Flextouch U-100 Insuln) 100 UNITS/ML Insuln.Pen Discontinued 20 UNITS SC DAILY November 20, 2016 12:00am August 06, 2019 1:24pm Start: 05-25-2016 End: 11-20-2016 Insulin Detemir U-100 (Levem ir Flextouch U100 Insulin) 100 UNITS/ML Insuln.Pen Discontinued 10 UNITS SC DAILY May 25, 2016 12:00am November 20, 2016 12:10pm Start: 05-25-2016 End: 11-20-2016 Insulin Detemir U-100 (Levem ir Flextouch U-100 Insuln) 100 UNITS/ML Insuln.Pen Discontinued 10 UNITS SC DAILY May 24, 2016 11:00pm November 20, 2016 11:10am Comment on above: Inject 40 Units subc utaneously twice daily. Inject 45 Units subc utaneously twice daily. Inject 45 Units subc utaneously two times a day. methylPREDNISolone 4 mg oral tablet (2 sources) Corticosteroid Start: 2014 End: 2015 take 32 mg by mouth twice daily, then take 32 mg by mouth once daily, then take 60 mg by mouth once daily, then take 8 mg by mouth once daily Methylprednisolone Discontinued 4 MG PO 4 TIMES DAILY October 15, 2015 1:00am November 07, 2015 5:24pm Take 32 mg by mouth twice a day 5 days, then 32 milligrams by mouth daily 5 days, then 60 mg by mouth daily 5 days, then 8 mg by mouth daily 5 days. oxyCODONE hydrochloride 5 mg oral tablet (2 sources) Opioid Agonist Start: 2015 End: 2015 take 10 mg by mouth every four hours as needed Oxycodone Discontinued 10 MG PO EVERY 4 HOURS NEEDED November 07, 2015 1:00am November 07, 2015 5:34pm predniSONE 10 mg oral tablet (20 sources) Start: 2023 End: 2023 take 5 tablets by mouth once daily, then take 4 tablets by mouth once daily, then take 3 tablets by mouth once daily, then take 2 tablets by mouth once daily, then take 1 tablet by mouth once daily predniSONE (DELTASONE) 10 mg tablet Indications: Asthma with COPD with exacerbation (HCC) (HCC) Take 5 tablets by mouth once daily for 1 day, THEN 4 tablets once daily for 1 day, THEN 3 tablets once daily for 1 day, THEN 2 tablets once daily for 1 day, THEN 1 tablet once daily for 1 day. 15 tablet 0 11/26/2023 11/30/2023 Start: 09-21-2023 End: 09-25-2023 take 1 tablet by mouth once daily at mealtime predniSONE (DELTASONE) 20 mg tablet Indications: SOB (shortness of breath) , COPD with exacerbation (HCC) Take 1 tablet by mouth once daily for 4 days. Take daily with food. 4 tablet 0 09/21/2023 09/25/2023 Active Start: 06-01-2022 End: 06-06-2022 take 2 tablets by mouth once daily predniSONE (DELTASONE) 20 mg tablet Indications: Chronic obstructive pulmonary disease with acute exacerbation (HCC) Take 2 tablets by mouth once daily for 5 days. 10 tablet 0 06/01/2022 06/06/2022 Active Start: 01-07-2022 End: 01-12-2022 take 2 tablets by mouth once daily predniSONE (DELTASONE) 20 mg tablet Indications: Chronic obstructive pulmonary disease with acute exacerbation (HCC) Take 2 tablets by mouth once daily for 5 days. 10 tablet 0 01/07/2022 01/12/2022 Active Start: 11-20-2016 End: 08-06-2019 Prednisone Discontinued 10 M G PO DAILY November 20, 2016 1:00am August 06, 2019 10:10am Take 3 tabs for 3 days, then 2 tabs for 3 days, then 1 tab for 3 days, then stop Start: 05-25-2016 End: 05-27-2016 take 40 mg by mouth once daily Prednisone Discontinued 40 MG PO DAILY@0800 4 May 25, 2016 12:00am May 27, 2016 8:18am Start: 01-04-2016 End: 01-12-2016 take 4 tablets by mouth once daily, then take 1 tablet by mouth once daily Prednisone Discontinued 10 MG PO DAILY@0800 49 January 04, 2016 12:00am January 12, 2016 10:58am take 4 tablets once a day for 7 days; 2 tablets a day for 7 days, then 1 tablet a day for 7 days. Start: 01-03-2016 End: 01-12-2016 take 20 mg by mouth once daily Prednisone Discontinued 20 MG PO DAILY@0800 January 03, 2016 12:00am January 12, 2016 10:58am Start: 09-16-2015 End: 10-15-2015 Prednisone Discontinued 20 M G PO TWICE DAILY WITH MEALS September 16, 2015 1:00am October 15, 2015 12:08pm one twice a day until gone Start: 08-16-2015 End: 08-19-2015 take 1 mg by mouth once daily Prednisone Discontinued MG PO DAILY August 16, 2015 12:00am August 19, 2015 11:57am Start: 04-01-2015 End: 04-04-2015 take 10 mg by mouth once daily Prednisone Discontinued 10 MG PO DAILY April 01, 2015 12:00am April 04, 2015 8:55am Start: 06-29-2014 End: 07-01-2014 Prednisone Discontinued Jun 12:00am July 01, 2014 2:42pm Comment on above: Take 2 tablets by mo ut once daily for 5 days. Take 1 tablet by sunshine once daily for 4 days. Take daily with food. Take 5 tablets by mo ut once daily for 1 day, THEN 4 tablets once daily for 1 day, THEN 3 tablets once daily for 1 day, THEN 2 tablets once daily for 1 day, THEN 1 tablet once daily for 1 day. sucralfate 1000 mg oral tablet (2 sources) Aluminum Complex Start: 025 End: 025 take 1 tablet by mouth four times daily sucralfate (CARAFATE) 1 gram tablet Indications: Gastroesophageal reflux disease, 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 esophagitis present Take 1 tablet by mouth four times daily. 120 tablet 2 01/08/2025 04/12/2025 Discontinued triamcinolone acetonide 0.25 mg/ml topical cream (9 sources) Corticosteroid Start: 021 triamcinolone (KENALOG) 0.025 % cream Indications: Itching Apply to affected area twice daily. 30 g 2 02/11/2021 Active Comment on above: Apply to affected ar ea twice daily. Problems Active Problems Problem Classification Problem Date Documented Da te Episodic/Chronic Acute and unspecified renal failure (2 sources) Prerenal azotemia; Translations: [Unspecified kidney failure] 12-06-2022 Chronic Acute bronchitis (4 sources) Bronchitis; Translations: [Acute bronchitis, unspecified]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 BLOOD SPECIMENOrdering Facility: [facility] Address: [address] [place] [address] Performed By: #### 2 4331-1, 06786-7 ####[facility] [id number] [place] [address] [place] ALT [Catalytic activity/Vol] 33 U/L Normal 10-54 [facility] Comment on above: Order Comment: Speci men Type: BLOOD SPECIMENOrdering Facility: [facility] Address: [address] [place] [address] Performed By: #### 2 4331-1, ####[facility] [id number] [place] [address] [place] Anion gap [Moles/Vol] 10 mmol/L Normal 8-15 [facility] Comment on above: Order Comment: Speci men Type: BLOOD SPECIMENOrdering Facility: [facility] Address: [address] [place] [address] Performed By: #### 2 4331-1, 15632-8 ####[facility] [id number] [place] [id number] [place] AST [Catalytic activity/Vol] 25 U/L Normal 14-40 [facility] Comment on above: Order Comment: Speci men Type: BLOOD SPECIMENOrdering Facility: [facility] Address: [address] [place], [place] [address] Performed By: #### 2 4331-1, ####[facility] [id number] [address] [address] [place] Bilirubin [Mass/Vol] 1.0 mg/dL Normal 0.2-1.3 [facility] Comment on above: Order Comment: Speci men Type: BLOOD SPECIMENOrdering Facility: [facility] Address: [address] [place], [place] [id number] Performed By: #### 2 4331-1, ####[facility] [id number] [place] [address] [place] Calcium [Mass/Vol] 9.3 mg/dL Normal 8.5-10.2 [facility] Comment on above: Order Comment: Speci men Type: BLOOD SPECIMENOrdering Facility: [facility] Address: [address] [place], [place] [id number] Performed By: #### 2 4331-1, ####[facility] [id number] [place] [address] [place] Chloride [Moles/Vol] 100 mmol/L Normal 98-107 [facility] Comment on above: Order Comment: Speci men Type: BLOOD SPECIMENOrdering Facility: [facility] Address: [address] [place], [place] [address] Performed By: #### 2 4331-1, ####[facility] [id number] [place] [id number] [place] CO2 [Moles/Vol] 24 mmol/L Normal 22-30 [facility] Comment on above: Order Comment: Speci men Type: BLOOD SPECIMENOrdering Facility: [facility] Address: [address] [place], [place] [id number] Performed By: #### 2 4331-1, 60667-0 ####[facility] [id number] [place] [id number] [place] Creatinine [Mass/Vol] 0.67 mg/dL Low 0.73-1.22 [facility] Comment on above: Order Comment: Speci men Type: BLOOD SPECIMENOrdering Facility: [facility] Address: [address] [place] [address] Performed By: #### 2 4331-1, ####[facility] [id number] [place] [address] [place] Creatinine and Glomerular filtration rate.predicted panel (S/P/Bld) 110 mL/min/1.73m??? Normal >=60 [facility] Comment on above: Order Comment: [facility] Type: BLOOD SPECIMENOrdering Facility: [facility] Address: [address] [place] [address] Result Comment: Tia mated Glomerular Filtration Rate (eGFR) is calculated using the 2020 CKD-EPI creatinine equation. This equation utilizes serum creatinine, sex, and age as parameters. The creatinine assay has traceable calibration to isotope dilution-mass spectrometry. Refer to KDIGO guidelines for clinical interpretation. In patients with unstable renal function, e.g. those with acute kidney injury, the eGFR may not accurately reflect actual GFR. Performed By: #### 2 4331-1, 60617-2 ####[facility] [id number] [place] [id number] [place] Glucose [Mass/Vol] 192 mg/dL High 74-99 [facility] Comment on above: Order Comment: Speci men Type: BLOOD SPECIMENOrdering Facility: [facility] Address: [address] [place] [address] Result Comment: The [place] Diabetes Association (ADA) provides guidance for cutoff values for fasting glucose and random glucose. The ADA defines fasting as no caloric intake for at least 8 hours. Fasting plasma glucose results between 100 to 125 mg/dL indicate increased risk for diabetes (prediabetes). Fasting plasma glucose results greater than or equal to 126 mg/dL meet the criteria for diagnosis of diabetes. In the absence of unequivocal hyperglycemia, results should be confirmed by repeat testing. In a patient with classic symptoms of hyperglycemia or hyperglycemic crisis, random plasma glucose results greater than or equal to 200 mg/dL meet the criteria for diagnosis of diabetes. Reference: Standards of Medical Care in Diabetes 2016, [place] Diabetes Association. Diabetes Care. 2016.39(Suppl 1). Performed By: #### 2 4331-, ####[facility] [id number] [place] [address] [place] Potassium [Moles/Vol] 4.6 mmol/L Normal 3.7-5.1 [facility] Comment on above: Order Comment: Speci men Type: BLOOD SPECIMENOrdering Facility: [facility] Address: [address] [place] [address] Performed By: #### 2 433-, ####[facility] [id number] [place] [address] [place] Protein [Mass/Vol] 7.0 g/dL Normal 6.3-8.0 [facility] Comment on above: Order Comment: Speci men Type: BLOOD SPECIMENOrdering Facility: [facility] Address: [address] [place] [address] Performed By: #### 2 4331-, ####[facility] [id number] [place] [address] [place] Sodium [Moles/Vol] 134 mmol/L Low 136-144 [facility] Comment on above: Order Comment: Speci men Type: BLOOD SPECIMENOrdering Facility: [facility] Address: [address] [place] [address] Performed By: #### 2 4331-, 98973-1 ####[facility] [id number] [place] [id number] [place] Urea nitrogen [Mass/Vol] 10 mg/dL Normal - [facility] Comment on above: Order Comment: Osmin lopez Type: BLOOD SPECIMENOrdering Facility: [facility] Address: [address] [place] [address] Performed By: #### 2 4331-1, 92892-8 ####[facility] [id number] [place] [address] [place] HbA1c (Bld)on 05-09-2024 Average glucose Estimated from glycated hemoglobin (Bld) [Mass/Vol] 212 mg/dL Normal [facility] Comment on above: Order Comment: Osmin lopez Type: BLOOD SPECIMENOrdering Facility: [facility] Address: [address] [place] [address] Result Comment: eAG: (Estimated average glucose) is a calculated value from HgbA1c and is healthcare sales representative of the average blood glucose level in the last 2-3 month period. Performed By: #### 5 5454-3 ####[facility] [id number] [address] STATES OF [facility] HbA1c (Bld) [Mass fraction] 9.0 % High 4.3-5.6 [facility] Comment on above: Order Comment: Osmin lopez Type: BLOOD SPECIMENOrdering Facility: [facility] Address: [address] [place] [address] Result Comment: [place] Diabetes Association guidelines indicate that patients with HgbA1c in the range 5.7-6.4% are at increased risk for development of diabetes, and intervention by lifestyle modification may be beneficial. HgbA1c greater or equal to 6.5% is considered diagnostic of diabetes. Performed By: #### 5 5454-3 ####[facility] [id number] [place] [address] [place] Lipid 1996 panelon 4 Cholesterol [Mass/Vol] 105 mg/dL Normal <200 [facility] Comment on above: Order Comment: Osmin men Type: BLOOD SPECIMENOrdering Facility: [facility] Address: [address] [place] [address] Result Comment: <200 mg/dL, Desirable 200-239 mg/dL, Borderline high >239 mg/dL, High Performed By: #### 2 4331-1, 63060-8 ####[facility] [id number] [place] [address] [place] Cholesterol in HDL [Mass/Vol] 18 mg/dL Low >39 [facility] Comment on above: Order Comment: Manni men Type: BLOOD SPECIMENOrdering Facility: [facility] Address: [address] [place] [address] Result Comment: 40-5 9 mg/dL, Acceptable >59 mg/dL, High: Negative risk factor for coronary heart disease <40 mg/dL, Low: Positive risk factor for coronary heart disease Performed By: #### 2 4331-1, ####[facility] [id number] [address] [place] Cholesterol in LDL [Mass/Vol] 48 mg/dL Normal <100 [facility] Comment on above: Order Comment: Osmin lopez Type: BLOOD SPECIMENOrdering Facility: [facility] Address: [address] [place] [address] Result Comment: <100 mg/dL, Optimal 100-129 mg/dL, Near optimal/above optimal 130-159 mg/dL, Borderline high 160-189 mg/dL, High >189 mg/dL, Very high Secondary prevention optimal LDL Cholesterol levels are recommended to be < 70 mg/dL Performed By: #### 2 4331-1, 74083-2 ####[facility] [id number] [place] [address] [place] Cholesterol in LDL/Cholesterol in HDL [Mass ratio] 2.67 {ratio} High <2.54 [facility] Comment on above: Order Comment: Osmin lopez Type: BLOOD SPECIMENOrdering Facility: [facility] Address: [address] [place] [address] Result Comment: Refsunny calderónce: 1. National Cholesterol Education Program ATP III Guideline At-A-Glance Quick Desk Reference: National Heart, Lung, and Blood Gorin. National Institutes of Health. 2001: NIH Publication No. 01-3305. 2. An International Atherosclerosis Society position paper: global recommendations for the management of dyslipidemia: executive summary, Atherosclerosis. 2014: 232(2):410-413. Performed By: #### 2 4331-1, ####[facility] [id number] [place] [address] [place] Cholesterol in VLDL [Mass/Vol] 39 mg/dL High <30 [facility] Comment on above: Order Comment: Speci men Type: BLOOD SPECIMENOrdering Facility: [facility] Address: [address] [place] [address] Performed By: #### 2 433-, ####[facility] [id number] [place] [address] [place] Cholesterol non HDL [Mass/Vol] 87 mg/dL Normal <130 [facility] Comment on above: Order Comment: Manni men Type: BLOOD SPECIMENOrdering Facility: [facility] Address: [address] [place] [address] Result Comment: <130 mg/dL, Optimal 130-159 mg/dL, Near optimal/above optimal 160-189 mg/dL, Borderline high 190-219 mg/dL, High >219 mg/dL, Very high Secondary prevention optimal non HDL Cholesterol levels are recommended to be <100 mg/dL Performed By: #### 2 4330-, ####[facility] LABCLIA [id number] [place] [address] [place] Cholesterol.total/Cholest domenic in HDL [Mass ratio] 5.83 {ratio} High <5.10 [facility] Comment on above: Order Comment: Speci men Type: BLOOD SPECIMENOrdering Facility: [facility] Address: [address] [place] [address] Performed By: #### 2 433-, 13398-0 ####[facility] LABCLIA [id number] [place] [address] [place] FASTING TIME 10 hrs Normal [facility] Comment on above: Order Comment: Speci men Type: BLOOD SPECIMENOrdering Facility: [facility] Address: [address] [place] [address] Performed By: #### 2 4331-1, 59491-5 ####[facility] LABCLIA [id number] [place] [address] [place] Triglyceride [Mass/Vol] 194 mg/dL High <150 [facility] Comment on above: Order Comment: Speci men Type: BLOOD SPECIMENOrdering Facility: [facility] Address: [address] [place] [address] Result Comment: <150 mg/dL, Normal 150-199 mg/dL, Borderline high 200-499 mg/dL, High >499 mg/dL, Very high Performed By: #### 2 4331-1, 99144-6 ####[facility] LABCLIA [id number] [place] [address] [place] 12 Lead EKGon 01-29-2024 12 Lead EKG [facility] Cardiovascular Services [address] [place] [id number] 12 Lead EKG 01/29/24 0000 MR#: [id number] Acct: [id number] Name: ELIEL SOUZA Jake Rep #: [id number] : 1970 53 From: Aneudy Mathew MD Attending Dr: Status: DEP ER Ordering Dr: Bruce Dong DO Date: 01/29/24 Location: ED Sex: M C Admitted: Test Reason : SOB Blood Pressure : / mmHG Vent. Rate : 086 BPM Atrial Rate : 086 BPM P-R Int : 184 ms QRS Dur : 098 ms QT Int : 384 ms P-R-T Axes : 041 077 062 degrees QTc Int : 459 ms Normal sinus rhythm Nonspecific ST abnormality Abnormal ECG When compared with ECG of 06-DEC-2022 12:13, No significant change was found Confirmed by WILLIAMS MIRANDA, ANEUDY ([id number]), television news video editor TANESHA ROJO ([id number]) on 02/01/2024 9:20:40 AM Referred By: Confirmed By:ANEUDY MATHEW MD 02/01/24 0920 Date Aneudy Mathew MD CC: Dr. Americo Borrego MD; Bruce Dong DO Signed Normal [facility] Absolute lymphocyte countOrd ered By: Bruce Dong on 01-29-2024 Lymphocytes Auto (Unsp spec) [#/Vol] 2.23 10*3/uL 0.83-4.51 [facility] Automated lymphocyte count a s percentage of total leukocytesOrdered By: Bruce Dong on 01-29-2024 Lymphocytes/100 WBC Auto (Unsp spec) 39.1 % 19-41 [facility] BNP,B-Type NATRIURETIC PEPTI Rosalee 01-29-2024 Natriuretic peptide B (Bld) [Mass/Vol] 56.4 pg/mL Normal 0-100 [facility] Comment on above: Performed By: #### L 500.2500, L501.5200, L503.6620 ####[facility] [address] [place], [address] Basic Metabolic Profile (BMP )on 01-29-2024 BUN/CRE 20.5 RATIO High 10-20 [facility] Comment on above: Performed By: #### L 500.2500, L501.5200, L503.6620 ####[facility] [address] [place], [address] CA,Total 8.9 mg/dL Normal 8.5-10.1 [facility] Comment on above: Result Comment: Slig ht Lipemia, Result may be falsely increased. Performed By: #### L 500.2500, L501.5200, L503.6620 ####[facility] [address] [place], [address] Chloride [Moles/Vol] 105 mmol/L Normal 98-107 [facility] Comment on above: Performed By: #### L 500.2500, L501.5200, L503.6620 ####[facility] [address] [place], [address] CO2 [Moles/Vol] 22.0 mmol/L Normal 21.0-32.0 [facility] Comment on above: Result Comment: Slig ht Lipemia, Result may be falsely increased. Performed By: #### L 500.2500, L501.5200, L503.6620 ####[facility] [address] [place], [address] Creatinine [Mass/Vol] 0.78 mg/dL Normal 0.70-1.30 [facility] Comment on above: Result Comment: Slig ht Lipemia, Result may be falsely increased. The validity of the calculated GFR GFRAA in patients over 70 years has not been determined. Clinical correlation is essential. Performed By: #### L 500.2500, L501.5200, L503.6620 ####[facility] [address] [place], [address] ECRCL 152.90 ml/min Normal [facility] Comment on above: Performed By: #### L 500.2500, L501.5200, L503.6620 ####[facility] [address] [place], [address] EST GFR - AA 132 mL/min Normal >60 [facility] Comment on above: Result Comment: Afri can [place] GFR Calc Performed By: #### L 500.2500, L501.5200, L503.6620 ####[facility] [address] [place], [address] GAP 8 Normal 5-15 [facility] Comment on above: Performed By: #### L 500.2500, L501.5200, L503.6620 ####[facility] [address] [place], [address] GFR/1.73 sq M.predicted among non-blacks MDRD (S/P/Bld) [Vol rate/Area] 109 mL/min/{1.73_m2} Normal >60 [facility] Comment on above: Result Comment: Non- GFR Calc Performed By: #### L 500.2500, L501.5200, L503.6620 ####[facility] [address] [place], [address] Glucose [Mass/Vol] 415 mg/dL High 74-106 [facility] Comment on above: Result Comment: Slig ht Lipemia, Result may be falsely increased. Glucose result greater than or equal to 200 mg/dL suggests DIABETES MELLITUS per A.D.A. criteria. Performed By: #### L 500.2500, L501.5200, L503.6620 ####[facility] [address] [place], [address] Potassium [Moles/Vol] 3.9 mmol/L Normal 3.5-5.1 [facility] Comment on above: Result Comment: Mode rate Hemolysis, Result may be falsely increased.-Slight Lipemia, Result may be falsely increased. Performed By: #### L 500.2500, L501.5200, L503.6620 ####[facility] [address] [place], [address] Sodium [Moles/Vol] 135 mmol/L Low 136-145 [facility] Comment on above: Performed By: #### L 500.2500, L501.5200, L503.6620 ####[facility] [address] [place], [address] Urea nitrogen [Mass/Vol] 16 mg/dL Normal 7-18 [facility] Comment on above: Result Comment: Slig ht Lipemia, Result may be falsely increased. Performed By: #### L 500.2500, L501.5200, L503.6620 ####[facility] [address] [place], [place], [id number] Basophil percentageOrdered B y: Bruce Dong on 01-29-2024 Basophils/100 WBC (Bld) 1.1 % 0-1 [facility] Chloride [Moles/Vol] 105 mmol/L 98-107 [facility] Eosinophils/100 WBC (Bld) 4.7 % 0-5 [facility] Glucose [Mass/Vol] 415 mg/dL 74-106 [facility] Comment on above: Slight Lipemia, Resu lt may be falsely increased.Glucose result greater than or equal to 200 mg/dLsuggests DIABETES MELLITUS per A.D.A. criteria. Hemoglobin (Bld) [Mass/Vol] 15.3 g/dL 13.0-16.5 [facility] Monocytes/100 WBC (Bld) 7.4 % 0-10 [facility] Neutrophils (Bld) [#/Vol] 2.6 10*3/uL 2.0-7.7 [facility] Neutrophils/100 WBC (Bld) 46.1 % 47-70 [facility] Potassium [Moles/Vol] 3.9 mmol/L 3.5-5.1 [facility] Comment on above: Moderate Hemolysis, Result may be falsely increased.-Slight Lipemia, Result may be falsely increased. Sodium [Moles/Vol] 135 mmol/L 136-145 [facility] WBC (Bld) [#/Vol] 5.7 10*3/uL 4.4-11.0 [facility] Blood platelet adequacy dete ction by light microscopyOrdered By: Bruce Dong on 01-29-2024 Platelets LM Ql (Bld) SLT DEC ADEQ [facility] CBC W/Diff, Automatedon 01-15 PLT EST SLT DEC Normal [facility] Comment on above: Performed By: #### L 100.0100 ####[facility] [address] [place], [address] Chest PA and Lateralon 01-28 Chest PA and Lateral [facility] Imaging Services [address] [place] [address] Chest PA and Lateral MR#: [id number] Acct: [id number] Name: ELIEL SOUZA Rep #: [id number] : 1970 M 53 From: Bear Salinas PCP: Dr. Americo Borrego MD Status: REG ER Study: Chest PA and Lateral Date of Exam: 01/29/24 Exam# [id number] Ordering Dr: Bruce Dong DO [id number] INDICATION: cough EXAMINATION/TECHNIQU E: X-RAY - XR Chest 2 Views COMPARISON: No relevant prior comparison study available ____ FINDINGS: LINES/DEVICES: None. LUNGS: No consolidation, edema or effusion. No pneumothorax. MEDIASTINUM AND CARDIOVASCULAR STRUCTURES: Cardiac silhouette not enlarged. Central airways and mediastinal contour are unremarkable. 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 RAD/Chest PA and Lateral IMPRESSION: No radiographic evidence of acute cardiopulmonary disease. Electronically Signed: Bear Foster MD at 2:17 EDT Reading Location ID and State: [facility] / [place] Tel , Service support , CC: Dr. Americo Borrego MD; Bruce Dong DO Accounts Payable Payroll Coordinator: Signed Normal [facility] Determination of erythrocyte mean corpuscular volume (MCV)Ordered By: Bruce Dong on 01-29-2024 MCV (RBC) [Entitic vol] 85.2 fL 80-94 [facility] Emergency Department Summary on 01-29-2024 Emergency Department Summary [facility] Medical Records Department [address] [place] [address] Emergency Department Summary 01/29/24 MR#: [id number] Acct: [id number] Name: ELIEL SOUZA Rep #: [id number] : 1970 53 From: Bruce Dong DO PCP: Dr. Americo Borrego MD Status:REG ER Location: ED HPI History of Present Illness Chief Complaint: Shortness of Breath Informant: patient and EMS Narrative Narrative: Patient is a 53-year-old male with past medical history of coronary artery disease obstructive sleep apnea insulin-dependent diabetes hypertension and COPD. He states this evening he had increased cough and shortness of breath. He states that he does not have any fevers or chills and he denies any known sick contacts. He states there is no allergen exposure in either. He denies any chest pain nausea vomiting or diaphoresis. However based on his complex past medical history and the fact he was having worsening of symptoms EMS was called to bring him in for evaluation. EMS states when they arrived his pulse ox was 95% on room air [facility] Medical History BPH (benign prostatic hyperplasia) Cholecystitis COPD (chronic obstructive pulmonary disease) Depression Diabetes mellitus Diverticula of colon Diverticulitis DVT (deep venous thrombosis) Fatty liver Femur fracture GERD (gastroesophageal reflux disease) H. pylori infection HTN (hypertension) Rib fracture Home Medications albuterol sulfate 2.5 mg/3 mL (0.083 %) solution for nebulization 2.5 mg inhalation Q6H PRN PRN Sob /Or Wheezing 01/03/16 [History Last Taken 11/18/16 04:00] atorvastatin 40 mg tablet 40 mg PO QHS 01/03/16 [History Last Taken 08/05/19] citalopram 20 mg tablet 30 mg PO DAILY 01/03/16 [History Last Taken 08/06/19] glimepiride 2 mg tablet 2 mg PO DAILY 01/03/16 [History Last Taken 08/06/19] lisinopril 10 mg tablet 10 mg PO DAILY 01/03/16 [History Last Taken 08/06/19] fluticasone furoate 100 mcg-vilanterol 25 mcg/dose inhalation powder (Breo Ellipta) 1 ea IH DAILY ##1 05/25/16 [Rx Last Taken 08/06/19] albuterol sulfate 90 mcg/actuation aerosol inhaler (Ventolin HFA) 2 puff inhalation Q2H PRN PRN COUGH/WHEEZE ##0 11/20/16 [Rx Last Taken 08/06/19] insulin detemir U-100 100 unit/mL (3 mL) subcutaneous pen 50 units subcut QHS 08/06/19 [History Last Taken 08/05/19] omeprazole 40 mg capsule,delayed release 20 mg PO DAILY 08/06/19 [History Last Taken 08/06/19] canagliflozin 100 mg tablet 100 mg PO DAILY 09/11/20 [History Last Taken Unknown] ibuprofen 800 mg tablet 800 mg PO Q8H PRN Pain 1-10 Or Fever 09/11/20 [History Last Taken Unknown] oxycodone-acetaminop hen 5 mg-325 mg tablet 1 tab PO Q6H PRN PRN Pain 1-10 Or Fever 09/11/20 [History Last Taken Unknown] loperamide 2 mg capsule (Imodium A-D) 2 mg PO Q4H PRN loose stool #10 caps 12/06/22 [Rx Last Taken Unknown] ondansetron 4 mg disintegrating tablet 4 mg PO Q8H PRN PRN Nausea #10 tabs 12/06/22 [Rx Last Taken Unknown] hydrocodone-homatrop ine 5 mg-1.5 mg/5 mL (5 mL) oral syrup (Hycodan) 5 ml PO 4X/DAY PRN cough 7 days #140 mL 01/29/24 [Rx Last Taken Unknown] Allergy/AdvReac Type Severity Reaction Status Date / Time No Known Allergies Allergy Verified 09/11/20 18:11 Social History (Updated 12/06/22 @ 11:[address] Sameer Whiteside MD) household members: none Smoking Status: Former smoker substance use type: does not use ROS ROS ED Constitutional Constitutional ED: Denies chills or fever(s) ENT ENT ED: Reports rhinorrhea; Denies sore throat Cardiovascular Cardiovascular: Denies chest pain, palpitations or racing heartbeat Respiratory/Chest Respiratory/Chest: Reports cough and dyspnea Gastrointestinal Gastrointestinal: Denies abdominal pain, diarrhea, nausea or vomiting Genitourinary Genitourinary ED: Denies dysuria Musculoskeletal Musculoskeletal: Denies myalgias Integumentary Reports rash Neurologic Neurologic: Denies headache(s) Hematologic/Lymphati c Hematologic/Lymphati c: Denies easy bleeding or easy bruising EXAM Physical Exam Const Vital Signs: 01/29/24 00:03 01/29/24 00:07 01/29/24 00:09 Temperature 97.9 F 97.9 F Temperature Source Temporal Temporal Pulse Rate 85 85 Respiratory Rate 18 19 H Respiratory Effort Normal Short of Breath Respiratory Depth Deep Respiratory Pattern Normal Blood Pressure 174/89 H 174/89 H Blood Pressure Mean 117 117 Pulse Ox 98 98 Oxygen Delivery Method Room Air Room Air Room Air 01/29/24 00:08 01/29/24 01:07 01/29/24 02:00 Temperature 97.9 F 98 F Temperature Source Oral Oral Pulse Rate 86 70 88 Respiratory Rate 17 23 H 19 H Respiratory Effort Respiratory Depth Respiratory Pattern Blood Pressure 156/89 H 121/63 H Blood Pressure Mean 111 82 Pulse Ox 95 97 (more content not included)... Normal [facility] Erythrocyte distribution wid th ratioOrdered By: Bruce Dong on 01-29-2024 Erythrocyte distribution width (RBC) [Ratio] 13.2 % 11.6-14.6 [facility] Erythrocyte distribution wid th standard deviationOrdered By: Bruce Dong on 01-29-2024 Erythrocyte distribution width (RBC) [Entitic vol] 41.0 fL 35.1-43.9 [facility] Hematocrit Auto (Bld) [Volum e fraction]Ordered By: Bruce Dong on 01-29-2024 Hematocrit (Bld) [Volume fraction] 44.4 % 40-54 [facility] Immature granulocytes/100 WB C Auto (Bld)Ordered By: Bruce Dong on 01-29-2024 Immature granulocytes/100 WBC (Bld) 1.600 % 0.0-0.9 [facility] Comment on above: IG% - Immature Granu locytes (promyelocytes, myelocytes and metamyelocytes) > 1% indicates that a LEFT SHIFT is Present. Laboratory - Chemistry and C hemistry - challengeOrdered By: Bruce Dong on 01-29-2024 CO2 [Moles/Vol] 22.0 mmol/L 21.0-32.0 [facility] Comment on above: Slight Lipemia, Resu lt may be falsely increased. Magnesium [Mass/Vol] 1.6 mg/dL 1.6-2.6 [facility] Comment on above: Moderate Hemolysis, Result may be falsely increased.-Slight Lipemia, Result may be falsely increased. Natriuretic peptide B (Bld) [Mass/Vol] 56.4 pg/mL 0-100 [facility] Urea nitrogen/Creatinine [Mass ratio] 20.5 mg/mg 10-20 [facility] Laboratory - Hematology and Cell countsOrdered By: Bruce Dong on 01-29-2024 MCH (RBC) [Entitic mass] 29.4 pg 27.0-32.0 [facility] MCHC (RBC) [Mass/Vol] 34.5 g/dL 32-36 [facility] Nucleated RBC/100 WBC (Bld) [Ratio] 0 % 0-5 [facility] Platelet mean volume (Bld) [Entitic vol] 11.7 fL 6.2-12.0 [facility] Platelets (Bld) [#/Vol] 92 10*3/uL 150-450 [facility] Laboratory - Microbiology an d Antimicrobial susceptibilityOrdered By: Bruce Dong on 01-29-2024 SARS-CoV-2 (COVID-19) RNA LAZARO+probe Ql (Unsp spec) [facility] M100.678on 01-29-2024 M100.678 SARS-CoV-2 (COVID 19) Negative INFLUENZA A Negative INFLUENZA B Negative RSV PCR Negative Normal [facility] Comment on above: Performed By: #### M 100.678 #### [facility] [address] [place], [address] Magnesiumon 01-29-2024 Magnesium [Mass/Vol] 1.6 mg/dL Normal 1.6-2.6 [facility] Comment on above: Result Comment: Mode rate Hemolysis, Result may be falsely increased.-Slight Lipemia, Result may be falsely increased. Performed By: #### L 500.2500, L501.5200, L503.6620 ####[facility] [address] [place], [place], [id number] No Panel InformationOrdered By: Bruce Dong on 01-29-2024 Estimated Creatinine Clearance Calc 152.90 ml/min [facility] Estimated GFR (MDRD) Amer 132 mL/min >60 [facility] Comment on above: GFR Calc Estimated GFR (MDRD) Non-Af Amer 109 mL/min >60 [facility] Comment on above: Non- GFR Calc RBC Auto (Bld) [#/Vol]Ordere d By: Bruce Dong on 01-29-2024 RBC (Bld) [#/Vol] 5.21 10*6/uL 4.6-6.2 [facility] Serum or plasma calcium mohan urement (mass/volume)Ordered By: Bruce Dong on 01-29-2024 Calcium [Mass/Vol] 8.9 mg/dL 8.5-10.1 [facility] Comment on above: Slight Lipemia, Resu lt may be falsely increased. Serum or plasma creatinine m easurement (mass/volume)Ordered By: Bruce Dong on 01-29-2024 Creatinine [Mass/Vol] 0.78 mg/dL 0.70-1.30 [facility] Comment on above: Slight Lipemia, Resu lt may be falsely increased.The validity of the calculated GFR & GFRAA in patients over 70 years has not been determined. Clinical correlation is essential. Serum or plasma urea nitroge n measurement (mass/volume)Ordered By: Bruce Dong on 01-29-2024 Urea nitrogen [Mass/Vol] 16 mg/dL 7-18 [facility] Comment on above: Slight Lipemia, Resu lt may be falsely increased. Thin prep Papanicolaou smear with manual screeningOrdered By: Bruce Dong on 01-29-2024 Thin prep Papanicolaou smear with manual screening 8 5-15 [facility] XR CHEST 2V FRONTAL/LATon [facility] XR Chest PA and Lateralon IMPRESSION: No acute radiographic abnormality. Accounts Payable Payroll Coordinator: PSCB Transcribe Date/Time: Sep 21 2023 4:13P Dictated by : LINDA SANDY MD This examination was interpreted and the report reviewed and electronically signed by: LINDA SANDY MD on Sep 21 2023 4:14PM [facility] DIVISION OF RADIOLOGY * * *Final Report* * * DATE OF EXAM: Sep 21 2023 4:11PM WOX 5291 - XR CHEST 2V FRONTAL/LAT / PROCEDURE REASON: SOB (shortness of breath) * * * * Physician Interpretation * * * * EXAMINATION: CHEST RADIOGRAPH (2 VIEW FRONTAL & LATERAL) CLINICAL HISTORY: SOB (shortness of breath) MQ: XC2_6 EXAM DATE/TIME: 09/21/2023 4:11 PM COMPARISON: Chest x-ray dated December 13, 2018 RESULT: Lines, tubes, and devices: None. Lungs and pleura: No consolidation. No lung mass. No pleural effusion. No pneumothorax. Cardiomediastinal silhouette: Normal cardiomediastinal silhouette. Bones and soft tissues: Stable deformity of a right mid rib. DIVISION OF RADIOLOGY Provider, [facility] [place] - 09/21/2023 * * *Final Report* * * DATE OF EXAM: Sep 21 2023 4:11PM WOX 5291 - XR CHEST 2V FRONTAL/LAT / PROCEDURE REASON: SOB (shortness of breath) * * * * Physician Interpretation * * * * EXAMINATION: CHEST RADIOGRAPH (2 VIEW FRONTAL & LATERAL) CLINICAL HISTORY: SOB (shortness of breath) MQ: XC2_6 EXAM DATE/TIME: 09/21/2023 4:11 PM COMPARISON: Chest x-ray dated December 13, 2018 RESULT: Lines, tubes, and devices: None. Lungs and pleura: No consolidation. No lung mass. No pleural effusion. No pneumothorax. Cardiomediastinal silhouette: Normal cardiomediastinal silhouette. Bones and soft tissues: Stable deformity of a right mid rib. IMPRESSION IMPRESSION: No acute radiographic abnormality. Accounts Payable Payroll Coordinator: PSCB Transcribe Date/Time: Sep 21 2023 4:13P Dictated by : ILNDA SANDY MD This examination was interpreted and the report reviewed and electronically signed by: LINDA SANDY MD on Sep 21 2023 4:14PM EST [facility] Radiology Study observation (narrative) [facility] [place] [facility] XR Chest PA and LateralOrder ed By: Cc Provider on 09-21-2023 [facility] Absolute lymphocyte countOrd ered By: Dr. Whiteside on 12-06-2022 Lymphocytes Auto (Unsp spec) [#/Vol] 0.94 10*3/uL 0.83-4.51 [facility] Basophil percentageOrdered B y: Dr. Whiteside on 12-06-2022 Basophils/100 WBC (Bld) 0.5 % 0-1 [facility] Chloride [Moles/Vol] 99 mmol/L 98-107 [facility] Eosinophils/100 WBC (Bld) 1.0 % 0-5 [facility] Glucose [Mass/Vol] 346 mg/dL 74-106 [facility] Comment on above: Glucose result great er than or equal to 200 mg/dLsuggests DIABETES MELLITUS per A.D.A. criteria. Neutrophils (Bld) [#/Vol] 5.7 10*3/uL 2.0-7.7 [facility] Neutrophils/100 WBC (Bld) 73.9 % 47-70 [facility] Potassium [Moles/Vol] 4.1 mmol/L 3.5-5.1 [facility] Sodium [Moles/Vol] 132 mmol/L 136-145 [facility] WBC (Bld) [#/Vol] 7.7 10*3/uL 4.4-11.0 [facility] Blood erythrocytes count (nu mber/volume)Ordered By: Dr. Whiteside on 12-06-2022 RBC (Bld) [#/Vol] 6.44 10*6/uL 4.6-6.2 [facility] Blood hemoglobin measurement (mass/volume)Ordered By: Dr. Whiteside on 12-06-2022 Hemoglobin (Bld) [Mass/Vol] 18.5 g/dL 13.0-16.5 [facility] Blood lymphocytes/100 leukoc ytesOrdered By: Dr. Whiteside on 12-06-2022 Lymphocytes/100 WBC (Bld) 12.2 % 19-41 [facility] Blood monocytes/100 leukocyt esOrdered By: Dr. Whiteside on 12-06-2022 Monocytes/100 WBC (Bld) 11.6 % 0-10 [facility] Blood platelet mean volumeOr dered By: Dr. Whiteside on 12-06-2022 Platelet mean volume (Bld) [Entitic vol] 11.0 fL 6.2-12.0 [facility] Determination of erythrocyte mean corpuscular volume (MCV)Ordered By: Dr. Whiteside on 12-06-2022 MCV (RBC) [Entitic vol] 83.4 fL 80-94 [facility] Hematocrit Auto (Bld) [Volum e fraction]Ordered By: Dr. Whiteside on 12-06-2022 Hematocrit (Bld) [Volume fraction] 53.7 % 40-54 [facility] Laboratory - Chemistry and C hemistry - challengeOrdered By: Dr. Whiteside on 12-06-2022 CO2 [Moles/Vol] 22.0 mmol/L 21.0-32.0 [facility] Urea nitrogen/Creatinine [Mass ratio] 23.6 mg/mg 10-20 [facility] Laboratory - Hematology and Cell countsOrdered By: Dr. Whiteside on 12-06-2022 Erythrocyte distribution width (RBC) [Entitic vol] 39.5 fL 35.1-43.9 [facility] Erythrocyte distribution width (RBC) [Ratio] 13.2 % 11.6-14.6 [facility] Immature granulocytes/100 WBC (Bld) 0.800 % 0.0-0.9 [facility] Comment on above: IG% - Immature Granu locytes (promyelocytes, myelocytes and metamyelocytes) > 1% indicates that a LEFT SHIFT is Present. MCH (RBC) [Entitic mass] 28.7 pg 27.0-32.0 [facility] Nucleated RBC/100 WBC (Bld) [Ratio] 0 % 0-5 [facility] MCHC Auto (RBC) [Mass/Vol]Or dered By: Dr. Whiteside on 12-06-2022 MCHC (RBC) [Mass/Vol] 34.5 g/dL 32-36 [facility] No Panel InformationOrdered By: Dr. Whiteside on 12-06-2022 Estimated Creatinine Clearance Calc 91.78 ml/min [facility] Estimated GFR (MDRD) Amer 103 mL/min >60 [facility] Comment on above: GFR Calc Estimated GFR (MDRD) Non-Af Amer 85 mL/min >60 [facility] Comment on above: Non- GFR Calc Troponin I High Sensitivity 15 pg/mL 3.0-78.0 [facility] Comment on above: Please Note: New Jane t Units and Gender Specific Reference Ranges. For more information see Policy Stat Procedure [place] High Sensitivity Troponin (TNIH) and attachments. Platelets bldOrdered By: Dr. Whiteside on 12-06-2022 Platelets (Bld) [#/Vol] 125 10*3/uL 150-450 [facility] Review by pathologistOrdered By: Dr. Whiteside on 12-06-2022 Pathologist review Jl (Unsp spec) [Interp] February [facility] Serum or plasma calcium mohan urement (mass/volume)Ordered By: Dr. Whiteside on 12-06-2022 Calcium [Mass/Vol] 9.5 mg/dL 8.5-10.1 [facility] Serum or plasma creatinine m easurement (mass/volume)Ordered By: Dr. Whiteside on 12-06-2022 Creatinine [Mass/Vol] 0.98 mg/dL 0.70-1.30 [facility] Comment on above: The validity of the calculated GFR & GFRAA in patients over 70 years has not been determined. Clinical correlation is essential. Serum or plasma urea nitroge n measurement (mass/volume)Ordered By: Dr. Whiteside on 12-06-2022 Urea nitrogen [Mass/Vol] 23 mg/dL - [facility] Thin prep Papanicolaou smear with manual screeningOrdered By: Dr. Whiteside on 12-06-2022 Thin prep Papanicolaou smear with manual screening 11 5- [facility] ANES POSTPROC EVALon 020 ANES POSTPROC EVAL HNO ID: [id number] Author: Raiza Negron Service: ? Author Type: Anesthesiologist Type: Anesthesia Postprocedure Evaluation Filed: 09/03/2020 6:07 PM Note Text: POST ANESTHESIA EVALUATION NOTE : 1970 Procedure Summary Date: 09/03/20 Room / Location: [place] Anesthesia Start: 1618 Anesthesia Stop: 1746 Procedure: Right Hydrocelectomy (Right Testicle) Diagnosis: Hydrocele, unspecified hydrocele type (Hydrocele, unspecified hydrocele type [N43.3]) Surgeons: Eileen Saha Responsible Provider: Raiza Negron Anesthesia Type: general ASA Status: 3 Anesthesia Type: general Last vitals Vitals Value Taken Time BP 113/66 09/03/20 1800 Temp 36 ?C (96.8 ?F) 09/03/20 1750 Pulse 78 09/03/20 1806 Resp 18 09/03/20 1806 SpO2 99 % 09/03/20 1806 Vitals shown include unvalidated device data. Post Anesthesia Patient Status Patient Evaluation: PACU. PACU/ICU Patient Condition: stable. Anticipated Disposition: phase 2 then home. Neurological Status: aware and responsive. Pulmonary Status: breathing comfortably on room air Airway Control: returned to baseline unsupported. Cardiovascular Status: stable. Pain Management: clinically adequate Postoperative Hydration: acceptable. Intraoperative Events: no significant anesthesia events Post Operative Nausea/Vomiting Status: no significant post operative nausea or vomiting Anesthetic Observations: Recommendation: continue current plan of care. SIGNATURE: Raiza Negron MD PATIENT NAME: Eliel Souza DATE: September 03, 2020 TIME: 6:06 PM CSN: [id number] [facility] ANES PRE-OPon 09-03-2020 ANES PRE-OP HNO ID: [id number] Author: Raiza Negron Service: ? Author Type: Anesthesiologist Type: Anesthesia Preprocedure Evaluation Filed: 09/03/2020 4:04 PM Note Text: ANESTHESIOLOGY DAY OF SURGERY NOTE : 1970 Procedure(s) (LRB): Right Hydrocelectomy (Right) Surgeon(s): Eileen Avila (Res) DO Margarita Ordaz (Res) Theresa Estimated body mass index is 46.03 kg/m? as calculated from the following: Height as of 08/27/20: 180.3 cm (5' 11). Weight as of 08/27/20: 149.7 kg (330 lb). Most recent hematocrit and potassium results: Hematocrit 38.8 05/02/2020 Potassium 3.9 05/02/2020 Relevant Problems ANESTHESIA (+) Obstructive sleep apnea treated with BiPAP CARDIO (+) Coronary artery disease involving white [place] coronary artery of white [place] heart (+) DVT of lower extremity (deep venous thrombosis) (HCC) (+) Essential hypertension ENDO (+) Diabetes mellitus type 2, controlled, without complications (HCC) GI (+) GERD (gastroesophageal reflux disease) -RENAL (+) Fatty liver PULMONARY (+) Asthma (+) COPD (chronic obstructive pulmonary disease) (HCC) (+) COPD with exacerbation (HCC) (+) Obstructive sleep apnea treated with BiPAP Other (+) Lateral epicondylitis I - PHYSICAL EVALUATION AIRWAY Patient intubated: No. Mallampati: II. TM distance: >3 FB. Neck ROM: full ROM without neurological symptoms. Mouth opening: adequate. Short neck: yes. Thick neck: yes DENTAL Dental findings: missing tooth/teeth, broken tooth, chipped and poor dentition. Additional comments: Pt with permanent bridge upper front teeth. II - ANESTHESIA PLAN ASA Score: 3 Anesthetic Plan: general Airway type: LMA The patient is not a current smoker. NPO Status: adequate Monitoring plan: standard ASA. Postoperative analgesic plan: parenteral or oral opioids. Anesthetic Risks, Benefits, Alternatives, Personnel Discussed. Consent obtained from: patient. Patient / Surrogate agrees to blood products: blood products not planned Significant changes in the patient condition since the History and Physical, not otherwise documented in primary service progress note: no. Vitals Value Taken Time BP 139/96 09/03/20 1454 Pulse 71 09/03/20 1454 Resp 22 09/03/20 1454 Temp 36.9 ?C (98.4 ?F) 09/03/20 1454 SpO2 Facility-Administere d Medications as of 09/03/2020 Medication Dose Route Frequency - lidocaine 10 mg/mL (1 %) 1-2 mg injection (XYLOCAINE) 0.1-0.2 mL INTRADERMAL PRN - lactated ringers infusion 5-30 mL/hr INTRAVENOUS CONTINUOUS - ceFAZolin 3 g in D5W 100 mL (ANCEF) 3 g INTRAVENOUS Pre-Op Once - [COMPLETED] acetaminophen 975 mg tab(s) (TYLENOL) 975 mg ORAL Pre-Op Once - [COMPLETED] celecoxib 400 mg cap(s) (CeleBREX) 400 mg ORAL Pre-Op Once - [COMPLETED] gabapentin 600 mg cap(s) (NEURONTIN) 600 mg ORAL Pre-Op Once Outpatient Medications as of 09/03/2020 Medication Sig - lisinopril (ZESTRIL, PRINIVIL) 10 mg tablet Take 1 tablet by mouth once daily. - fluticasone-vilanter ol (BREO ELLIPTA) 100-25 mcg/dose inhaler take 1 inhalation by mouth once daily - insulin detemir U-100 (LEVEMIR FLEXTOUCH U-100 INSULN) 100 unit/mL (3 mL) injection pen INJECT 50 UNITS SUBCUTANEOUSLY ONCE DAILY AT BEDTIME - omeprazole (PRILOSEC) 20 mg capsule Take 1 capsule by mouth twice daily. 1/2 hr before meal. - albuterol HFA (PROAIR HFA) 90 mcg/actuation inhaler inhale 2 puffs by mouth every 4 hours if needed for wheezing or shortness of breath - citalopram (CELEXA) 20 mg tablet Take 1.5 tablets by mouth once daily. - acetaminophen (TYLENOL EXTRA STRENGTH) 500 mg tablet Take 500 mg by mouth every 8 hours as needed. - loratadine (CLARITIN) 10 mg tablet Take 1 tablet by mouth once daily. - glimepiride (AMARYL) 2 mg tablet Take 1 tablet by mouth daily with breakfast. - blood sugar diagnostic (FREESTYLE LITE STRIPS) test strip Test blood sugar(s) 2 times daily. Dx: Type 2 DM - Controlled E11.9 Insulin: Yes - lancets (FREESTYLE LANCETS) 28 gauge Use as directed to check blood sugar twice daily. DX E11.9 Insulin Yes - atorvastatin (LIPITOR) 40 mg tablet Take 1 tablet by mouth daily at bedtime. - albuterol (PROVENTIL) 2.5 mg /3 mL (0.083 %) nebulizer solution inhale contents of 1 vial in nebulizer every 6 hours if needed for wheezing or shortness of breath - metFORMIN ER (GLUCOPHAGE XR) 500 mg 24 hr tablet Take 2 tablets by mouth daily with food. - canagliflozin (INVOKANA) 100 mg tab Take 1 tablet by mouth daily before breakfast. - phenazopyridine (PYRIDIUM) 100 mg tablet Take 1 tablet by mouth three times daily as needed. - insulin needles, DISPOSABLE, (BD INSULIN PEN NEEDLE UF) 31 gauge x 5/16 ndle USE 1 NEEDLE WITH INSULIN ONCE DAILY - guaiFENesin (MUCINEX) 600 mg 12 hr tablet Take 1 tablet by mouth twice daily. - BIPAP Initiate BiPAP @ 23/17 cm of water with humidification. Mask (per patient preference) optional chin strap (if indicated) , filters, tubing, humidifier and lifetime supplies. - COMPOUNDED PRESCRIPTION 1 Each four times daily as needed. NEBULIZER FOR HOME USE. DX: COPD I have interviewed and examined the patient. I have reviewed the medical record and/or the pre-anesthesia evaluation, pertinent labs, and test results. This contains updated information obtained within 48 hours of Surgery/Procedure. SIGNATURE: Raiza Negron MD PATIENT NAME: Eliel Souza DATE: September 03, 2020 TIME: 4:02 PM CSN: [id number] [facility] OPERATIVE NOon 09-03-2020 OPERATIVE NO HNO ID: [id number] Author: Eileen Saha Service: Urology Author Type: Physician Type: Operative Report Filed: 09/03/2020 5:42 PM Note Text: OPERATIVE/PROCEDURE REPORT LOG ID: [id number] Surgery/Procedure Date: 09/03/2020 Incision/Procedure Start Time: 4:41 PM Incision Close/Procedure End Time: 5:40 PM Surgeon(s)/Procedura list(s) and Coach Builder(s): Surgeon(s) and Role: * Eileen Saha - Primary * Margarita (Res) DO Orlin - Resident - Assisting * Margarita (Res) Theresa - Resident - Assisting Procedure(s): Procedure(s) and Anesthesia Type: * Right Hydrocelectomy - General Anesthesia: General Operative Indications: This is a 50 year old year old male with a RIGHT hydrocele, failed office aspiration, who after discussing the risks, benefits, and alternatives of the procedure has elected to pursue management of their condition via the aforementioned surgery. Procedure Details: The patient was correctly identified and the operative plan was confirmed with the patient and the operative team. A weight appropriate dose of prophylactic antibiotics was administered intravenously prior to the procedure and sequential compression devices were applied to the lower extremities and activated prior to induction of anesthesia. The patient was placed in the supine position. General anesthesia was induced. All pressure points were padded per protocol and the operative area was prepped and draped in the standard sterile fashion. A transverse right hemiscrotal incision was made through the skin and superficial subcutaneous tissues. Blunt dissection and electrocautery were used to carry the incision to the level of the hydrocele sack. The hydrocele sack was then freed circumferentially to the base and the spermatic cord structures were identified. Once the hydrocele sack had been cleared of its overlying tissues it was then incised on its anterior surface and drained entirely of clear duncan fluid. The right testicle was visible within the hydrocele sack and was normal in appearance. The hydrocele sack was then excised circumferentially around the right testicle with care taken to avoid the spermatic cord structures. Hemostasis was obtained using electrocautery. The excised specimen was sent to pathology for analysis. The remaining regan of the hydrocele sack were then everted and approximated with 2-0 chromic using a combination of simple interrupted and intermittent locking stitches in a hemostatic fashion. Thereafter, a right spermatic cord block was performed using 10cc of 0.25% Marcaine. Hemostasis was again inspected and noted to be excellent. A dena drain was placed in dependent portion of scrotum. The dartos was closed in a simple running fashion using 2-0 chromic suture. The scrotal skin was closed with a 3-0 chromic horizontal mattress stitch. Sureclose was applied. The patient tolerated the procedure well, emerged from anesthesia without incident, and was transferred to PACU in stable condition. Pre-Op/Pre-Procedure Diagnosis: Pre-Op Diagnosis Codes: * Hydrocele, unspecified hydrocele type [N43.3] Post-Op/Post-Procedu re Diagnosis: Post-Op Diagnosis Codes: * Hydrocele, unspecified hydrocele type [N43.3] Estimated Blood Loss: 10 mls Specimens: ID Type Source Tests Collected by Time Destination A : Tissue HYDROCELE SAC RIGHT SURGICAL PATHOLOGY Eileen Saha 09/03/2020 5:02 PM Implantable Devices: None Drains: [place] Complications: None Anatomic Site: N/A Approach: Open Qualifier: None I/primary surgeon/proceduralis t performed the procedure with assistance. SIGNATURE: Eileen Saha MD PATIENT NAME: Eliel Souza DATE: September 03, 2020 TIME: 5:40 PM PAGER/CONTACT #: [phone] Normal [facility] SURGICAL PATHOLOGYon 020 CASE REPORT Normal [facility] Comment on above: Order Comment: Speci men Type: TISSUE SPECIMEN Result Comment: Surg ical Pathology Report Case: [id number] Authorizing Provider: Eileen Saha Collected: 09/03/2020 05:02 PM Ordering Location[place] Received: 09/04/2020 06:58 AM Pathologist: Vilma Oakes MD Specimen: HYDROCELE SAC RIGHT Performed By: #### S #### [facility] CLIA [id number] [address] [place] [address] FINAL DIAGNOSIS Normal [facility] Comment on above: Order Comment: Speci men Type: TISSUE SPECIMEN Result Comment: Righ t inguinal tissue, excision Fibromembranous tissue with mesothelial lining compatible with hydrocele sac. Performed By: #### S #### [facility] CLIA [id number] [address] [place] [address] FINAL PERFORMING LAB Normal [facility] Comment on above: Order Comment: Speci men Type: TISSUE SPECIMEN Result Comment: Diag nostic interpretation performed at [facility], [address] [place] [address] CLIA# [id number] Tight Barrel Inspector: Tyroen Douglass M.D. Performed By: #### S #### [facility] CLIA [id number] [address] [place] [address] [facility] Comment on above: Order Comment: Speci men Type: TISSUE SPECIMEN Result Comment: A. H YDROCELE SAC RIGHT. Received in formalin labeled right hydrocele sac is a pink membranous segment of tissue measuring 6.5 x 3.5 x 1.3 cm. One side is smooth and glistening the other side is slightly roughened. The specimen is sectioned. Liner Man sections are submitted in formalin in 1 cassette. KVB/louise Gross examination performed at [facility], [address] [place] [address] CLIA# [id number] Performed By: #### S #### [facility] CLIA [id number] [address] [place] [address] XR FEMUR MINIMUM 2 VIEWS LEF Ton 09-03-2020 XR FEMUR MINIMUM 2 VIEWS LEFT ORIGINAL XR XR FEMUR MINIMUM 2 VIEWS LEFT, Clinical Statement: pain , , previous fracture and surgery Comparison: None Findings: No acute fracture, dislocation, lytic process or periosteal reaction is seen in the visualized bones of the LEFT femur. No erosive type of arthritis. No soft tissue calcification. There is an intramedullary silvina across the length of the femur without evidence of loosening or other complication. Healed fracture of the distal femur. Osteoarthritis of the knee. IMPRESSION: No acute skeletal abnormality in the LEFT femur. Expected postoperative changes. Interpreted By: Marques Multani MD Preliminary Report By: Marques Multani MD Electronically Signed By: Marques Multani MD Dictated Date: 09/03/2020 10:21:06 AM Prelim Date: 09/03/2020 10:21:06 AM Sign Date: 09/03/2020 10:22:08 AM Ordering Provider:Mesfin Conteh [facility] ([place] XR SPINE LUMBOSACRAL 2 OR 3 VIEWSon 09-03-2020 XR SPINE LUMBOSACRAL 2 OR 3 VIEWS ORIGINAL XR SPINE LUMBOSACRAL 4 VIEWS CLINICAL STATEMENT: pain. COMPARISON: None FINDINGS: The lumbar vertebral body heights appear preserved. Multilevel marginal disc osteophyte seen. Loss of disc height seen at L4-L5. Slight retrolisthesis of L2 with respect to L3 noted. Mild to moderate facet arthropathy seen in the lower lumbar region. The sacrum and sacral arcuate lines are grossly intact. There are significant soft tissue attenuation artifacts. IMPRESSION: No compression deformities. Multilevel degenerative changes Interpreted By: Robert Bocanegra MD Preliminary Report By: Robert Bocanegra MD Electronically Signed By: Robert Bocanegra MD Dictated Date: 09/03/2020 10:15:22 AM Prelim Date: 09/03/2020 10:15:22 AM Sign Date: 09/03/2020 10:16:56 AM Ordering Provider:Mesfin Conteh [facility] ([place]) [facility] 09-02-2020 GISSELL Telephone (UROLAE) ELIEL SOUZA ([id number]) 1970 M Date Time Provider Department 09/02/20 EILEEN SAHA During your visit today, we recorded the following information about you: Marie Rush 09/02/2020 9:36 AM Signed Returning patient's call, I left him a message to return my call. It may be regarding his surgery with Yifan Allergies As of Date: 09/02/2020 Noted Allergy Reaction SEASONALE (LEVONORGESTREL-ETHI NYL*08/27/2020 14 - Other: See Comments Comments: rhinitis Date Reviewed: 08/27/2020 Reviewed by: Rachelle Herrera - Fully Assessed Reason for Visit: TCB [1226] Prescriptions as of 09/02/2020 Sig: LISINOPRIL 10 MG TABLET Take 1 tablet by mouth once d* GLIMEPIRIDE 2 MG TABLET Take 1 tablet by mouth daily * FREESTYLE LITE STRIPS Test blood sugar(s) 2 times d* LANCETS 28 GAUGE Use as directed to check bloo* ATORVASTATIN 40 MG TABLET Take 1 tablet by mouth daily * BREO ELLIPTA 100 MCG-25 MCG/D* take 1 inhalation by mouth on* LEVEMIR FLEXTOUCH U-100 INSUL* INJECT 50 UNITS SUBCUTANEOUSL* OMEPRAZOLE 20 MG CAPSULE,YEYO* Take 1 capsule by mouth twice* ALBUTEROL SULFATE 2.5 MG/3 ML* inhale contents of 1 vial in * METFORMIN ER 500 MG TABLET,EX* Take 2 tablets by mouth daily* CANAGLIFLOZIN 100 MG TABLET Take 1 tablet by mouth daily * ALBUTEROL SULFATE HFA 90 MCG/* inhale 2 puffs by mouth every* CITALOPRAM 20 MG TABLET Take 1.5 tablets by mouth onc* ACETAMINOPHEN 500 MG TABLET Take 500 mg by mouth every 8 * PHENAZOPYRIDINE 100 MG TABLET Take 1 tablet by mouth three * PEN NEEDLE, DIABETIC 31 GAUGE* USE 1 NEEDLE WITH INSULIN ONC* LORATADINE 10 MG TABLET Take 1 tablet by mouth once d* GUAIFENESIN ER 600 MG TABLET,* Take 1 tablet by mouth twice * BIPAP Initiate BiPAP @ cm of * COMPOUNDED PRESCRIPTION 1 Each four times daily as ne* Problem List As Of Date 09/02/2020 Noted Resolved Depression [F32.9] 04/11/2007 More... Asthma [J45.909] 04/11/2007 More... Morbid obesity (HCC) [E66.01] 09/11/2008 More... GERD (gastroesophageal reflux disease) [K21.9] 05/09/2009 More... Benign prostatic hyperplasia [N40.0] 06/16/2009 History of smoking [Z87.891] 06/16/2009 More... Cervical Disc Displacement [M50.20] 06/16/2009 Hyperlipidemia [E78.5] 06/16/2009 More... Fatty liver [K76.0] 08/11/2010 More... Cholecystitis chronic 09/15/2010 H. pylori infection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 ASSISTANT.CONTOUR PATH TAPE MILL OPERATOR Work Phone: [facility] [place] 06-29-2023 13:52-0400 Diastolic blood pressure 70 mm[Hg] Malika Tannhof VETERINARY ASSISTANT.CONTOUR PATH TAPE MILL OPERATOR Work Phone: [facility] [place] 06-29-2023 13:52-0400 Heart rate 80 /min Malika Tannhof VETERINARY ASSISTANT.CONTOUR PATH TAPE MILL OPERATOR Work Phone: [facility] [place] 06-29-2023 13:52-0400 Respiratory rate 16 /min Malika Abdielhof VETERINARY ASSISTANT.CONTOUR PATH TAPE MILL OPERATOR Work Phone: [facility] [place] 06-29-2023 13:52-0400 SaO2% (BldA) [Mass fraction] 97 % Malika Tannhof VETERINARY ASSISTANT.CONTOUR PATH TAPE MILL OPERATOR Work Phone: [facility] [place] 06-29-2023 13:52-0400 Systolic blood pressure 110 mm[Hg] Malika Tannhof VETERINARY ASSISTANT.CONTOUR PATH TAPE MILL OPERATOR Work Phone: [facility] [place] 12-06-2022 15:01-0500 Diastolic blood pressure 78 mm[Hg] [facility] 12-06-2022 15:01-0500 Heart rate 81 /min [facility] 12-06-2022 15:01-0500 Respiratory rate 16 /min [facility] 12-06-2022 15:01-0500 SaO2% (BldA) [Mass fraction] 98 % [facility] 12-06-2022 15:01-0500 Systolic blood pressure 135 mm[Hg] [facility] 12-06-2022 11:19-0500 Body height 180.34 cm [facility] 12-06-2022 11:19-0500 Body mass index (BMI) [Ratio] 40.1 kg/m2 [facility] 12-06-2022 11:19-0500 Body temperature 97.4 [degF] [facility] 12-06-2022 11:19-0500 Body weight 130.4 kg [facility] Encounters Encounter Date Encounter Type Care Provider Facility Start: 06-13-2025 End: 06-14-2025 Refill Americo Borrego MD Work Phone: [address] [place] [address] Comment on above: Refill Request Start: 04-12-2025 End: 04-12-2025 Office outpatient visit 25 minutes Americo Borrego MD Work Phone: [facility] [place] Comment on above: Type 2 diabetes shashank itus with hyperglycemia, with long-term current use of insulin (HCC) (Primary Dx); Depression, unspecified depression type; Mild asthma without complication, 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 persistent (HCC); Hyperlipidemia, unspecified hyperlipidemia type; Obstructive sleep apnea treated with BiPAP; Essential hypertension Start: 04-12-2025 End: 04-12-2025 ambulatory [facility] Facility[facility] Start: 04-06-2025 End: 04-06-2025 [facility] Start: 01-08-2025 End: 01-08-2025 [facility] Start: 01-08-2025 End: 01-08-2025 Office outpatient visit 25 minutes Americo Borrego MD Work Phone: [facility] [place] Comment on above: Type 2 diabetes shashank itus without complication, 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 usp insulin use (HCC) (Primary Dx); Essential hypertension; Hyperlipidemia, unspecified hyperlipidemia type; Depression, unspecified depression type; FAISAL (generalized anxiety disorder); Gastroesophageal reflux disease, 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 esophagitis present; Mild asthma without complication, 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 persistent; Obstructive sleep apnea treated with BiPAP; Chronic obstructive pulmonary disease, unspecified COPD type (HCC); History of ileostomy Start: 12-22-2024 End: 12-22-2024 [facility] Start: 12-10-2024 End: 01-24-2025 Telephone encounter Dean Goldberg APRN.CNP Work Phone: Administration Comment on above: Medication Problem ( Med Refills) Start: 09-28-2024 End: 09-28-2024 Refill Americo Borrego MD Work Phone: [facility] [place] Comment on above: Refill Request Start: 09-12-2024 End: 09-12-2024 ambulatory Gem Perez RN [facility] [place] Start: 09-12-2024 End: 09-12-2024 Patient encounter procedure Gem Perze RN [facility] Comment on above: ACM SILVANO RN ( Medication Adherence Review at request of payer) Start: 08-27-2024 End: 08-27-2024 Telephone encounter Americo Borrego MD Work Phone: [facility] Comment on above: Medication Problem Start: 08-24-2024 End: 08-24-2024 ambulatory [facility] Facility[facility] Start: 08-24-2024 End: 08-24-2024 Patient encounter procedure Americo Borrego MD Work Phone: [facility] Comment on above: Type 2 diabetes shashank itus with hyperglycemia, with long-term current use of insulin (HCC) (Primary Dx); Depression, unspecified depression type; Gastroesophageal reflux disease, 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 esophagitis present; Hyperlipidemia, unspecified hyperlipidemia type; Chronic obstructive pulmonary disease, unspecified COPD type (HCC); Mild asthma without complication, 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 persistent; 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; Obstructive sleep apnea treated with BiPAP; Essential hypertension Start: 08-22-2024 End: 08-22-2024 ambulatory Malu Tirado MA [facility] [place] Start: 08-22-2024 End: 08-22-2024 Patient encounter procedure Malu Tirado MA [facility] [place] Comment on above: Population Health Na vigation Outreach [facility] [place] [facility]) Start: 08-11-2024 End: 08-11-2024 ambulatory AMERICO BORREGO Facility[facility] Start: 06-06-2024 End: 06-06-2024 Refill Americo Borrego MD Work Phone: [facility] Comment on above: Refill Request Start: 05-22-2024 End: 05-22-2024 [facility] Start: 05-22-2024 End: 05-22-2024 Patient encounter procedure Americo Borrego MD Work Phone: [facility] Comment on above: Hospital discharge f ollow-up (Primary Dx); Type 2 diabetes mellitus without complication, 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 oil heaterman insulin use (HCC); Essential hypertension; Hyperlipidemia, unspecified hyperlipidemia type; Depression, unspecified depression type; FAISAL (generalized anxiety disorder); Mild intermittent asthma without complication; Chronic obstructive pulmonary disease, unspecified COPD type (HCC); Gastroesophageal reflux disease, 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 esophagitis present; History of ileostomy; Encounter for screening examination for other mental health and behavioral disorders Start: 05-14-2024 End: 05-14-2024 Emergency department patient visit [facility] Facility[facility] Start: 05-14-2024 End: 05-14-2024 ambulatory [facility] Facility[facility] Start: 05-14-2024 End: 05-14-2024 Patient encounter procedure Matilde Gan VETERINARY ASSISTANT.GISSELL Work Phone: [facility] Comment on above: Left lower quadrant abdominal pain (Primary Dx) Start: 05-09-2024 End: 05-09-2024 ambulatory [facility] Facility[facility] Start: 03-23-2024 Refill Americo walls MD Work Phone: [facility] Comment on above: Refill Request Start: 02-29-2024 Telephone encounter Margaritaluci Arambulaavelino armstrong [facility] Work Phone: [facility] Comment on above: Appointment Start: 02-21-2024 Telephone encounter Kandace Meija [facility] Comment on above: NEW PRIMARY CARE PHA RMACY APPT Start: 02-20-2024 End: 02-20-2024 Patient encounter procedure Americo Borrego MD Work Phone: [facility] Comment on above: Type 2 diabetes shashank itus without complication, 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 oil heaterman insulin use (HCC) (Primary Dx); Essential hypertension; Hyperlipidemia, unspecified hyperlipidemia type; Chronic obstructive pulmonary disease, unspecified COPD type (HCC); Depression, unspecified depression type; FAISAL (generalized anxiety disorder); Gastroesophageal reflux disease, 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 esophagitis present; History of ileostomy; Obstructive sleep apnea treated with BiPAP; Type 2 diabetes mellitus with hyperglycemia, with long-term current use of insulin (HCC); Platelets decreased (HCC) Start: 01-29-2024 End: 01-29-2024 Emergency department patient visit [facility] Work Phone: Start: 01-25-2024 Refill Americo walls MD Work Phone: [facility] Comment on above: Refill Request Start: 11-30-2023 Refill Americo walls MD Work Phone: [facility] Comment on above: Refill Request Start: 11-26-2023 End: 11-26-2023 Patient encounter procedure Emil Luo MD Work Phone: [facility] Comment on above: Asthma with COPD wit h exacerbation (HCC) (HCC) (Primary Dx) Refill Request Start: 11-21-2023 Telephone encounter Americo springer MD Work Phone: [facility] Comment on above: Excuse from Jury Dut y- Letter Start: 09-21-2023 End: 09-21-2023 Subsequent hospital visit by physician [facility] Work Phone: Radiology Comment on above: SOB (shortness of br eath) [R06.02] Start: 09-21-2023 End: 09-21-2023 Patient encounter procedure Chen Souza APRN.CONTOUR PATH TAPE MILL OPERATOR Work Phone: [facility] Comment on above: SOB (shortness of br eath) (Primary Dx); COPD with exacerbation (HCC) Start: 08-24-2023 Telephone encounter Americo springer MD Work Phone: [facility] Comment on above: chest cold Refill Request Start: 06-29-2023 End: 06-29-2023 Patient encounter procedure Malika Sethi APRN.CONTOUR PATH TAPE MILL OPERATOR Work Phone: [facility] [place] Comment on above: Type 2 diabetes shashank itus without complication, 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 oil heaterman insulin use (HCC) (Primary Dx); Essential hypertension; Hyperlipidemia, unspecified hyperlipidemia type; Depression, unspecified depression type; FAISAL (generalized anxiety disorder); Chronic obstructive pulmonary disease, unspecified COPD type (HCC); Gastroesophageal reflux disease, 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 esophagitis present; Obstructive sleep apnea treated with BiPAP; Encounter for screening for lung cancer Start: 06-24-2023 Refill Americo walls MD Work Phone: [facility] Comment on above: Refill Request Start: 06-16-2023 Telephone encounter Americo springer MD Work Phone: [facility] Comment on above: Medication Problem Start: 04-25-2023 Refill Americo walls MD Work Phone: [facility] Comment on above: Refill Request Start: 12-25-2022 Refill Americo walls MD Work Phone: [facility] Comment on above: Refill Request Start: 12-06-2022 End: 12-06-2022 [facility] Start: 11-26-2022 Refill Dean RIVERA RN.CONTOUR PATH TAPE MILL OPERATOR Work Phone: [facility] Comment on above: Refill Request Start: 07-09-2022 Refill Americo walls MD Work Phone: [facility] Comment on above: Refill Request; Refi ll Request Start: 07-04-2022 Refill Dean RIVERA RN.CONTOUR PATH TAPE MILL OPERATOR Work Phone: [facility] Comment on above: Refill Request Start: 06-30-2022 Telephone encounter Americo springer MD Work Phone: [facility] Comment on above: Insurance Authorizat ion ([employer] HFA) Start: 06-28-2022 Telephone encounter Americo springer MD Work Phone: [facility] Comment on above: Rx refill; not on cu rrent med list Start: 06-02-2022 Telephone encounter Americo springer MD Work Phone: [facility] Comment on above: Patient Update (Plea se fill his inhaler as soon as possible, ); Patient Question Start: 01-07-2022 End: 01-07-2022 ambulatory Americo Borrego MD Work Phone: [facility] Comment on above: Chronic obstructive pulmonary disease with acute exacerbation (HCC) (Primary Dx) Start: 01-07-2022 End: 01-07-2022 Telemedicine consultation with patient Americo Borrego MD Work Phone: [facility] Start: 01-04-2022 Telephone encounter Americo springer MD Work Phone: [facility] Comment on above: Question Procedures Date Procedure Procedure Detail Performing Clinician Start: 01-29-2024 SARS-CoV-2, Influenz a & RSV (PCR) Start: 01-29-2024 Plain chest X-ray Start: 09-21-2023 Radiologic exam ches t 2 views Chen Souza VETERINARY ASSISTANT.CONTOUR PATH TAPE MILL OPERATOR Work Phone: Start: 11-02-2019 Colonoscopy Americo pulido MD Work Phone: H/O: ileostomy History of ileostomy Americo Borrego MD Work Phone: H/O: ileostomy History of ileostomy Americo Borrego MD Work Phone: H/O: ileostomy History of ileostomy Americo Borrego MD Work Phone: Plan of Treatment Date Care Activity Detail Author Start: 05-16-2031 Urine microalbumin profile [facility] Start: 11-02-2029 Colonoscopy COLONOSCOPY [facility] Start: 11-02-2029 COLORECTAL CANCER SCREENING COLORECTAL CANCER SCREENING [facility] Start: 11-02-2029 Screening for malignant neoplasm of colon [facility] Start: 04-12-2026 Annual PCP Team Chronic Disease Visit Annual PCP Team Chronic Disease Visit [facility] Start: 04-12-2026 Pneumococcal Vaccine: 50+ (2 of 2 - PCV) Pneumococcal Vaccine: 50+ (2 of 2 - PCV) [facility] Comment on above: Postponed from 11/13/2020 (Declined at t his time) Start: 04-06-2026 Hepatitis B surface antibody level LDL Cholesterol [facility] Start: 02-09-2026 Prostate Cancer Screening Discussion Prostate Cancer Screening Discussion [facility] Start: 02-09-2026 Prostate specific antigen measurement Prostate Cancer Screening Discussion [facility] Start: 01-08-2026 Annual PCP Team Chronic Disease Visit Annual PCP Team Chronic Disease Visit [facility] Start: 12-22-2025 Hepatitis B surface antibody level LDL Cholesterol [facility] Start: 12-16-2025 End: 12-16-2025 Patient encounter procedure 12/16/2025 4:20 PM EST Office Visit [facility] [place] [address] [place] [address] Danielle Cedillo MD [address] [place] [address] 6 month f/u [facility] [place] Comment on above: 6 month f/u Start: 10-24-2025 Glaucoma screening Dilated Retinal Exam [facility] Start: 10-06-2025 Hemoglobin A1c measurement HbA1C [facility] Start: 08-24-2025 Annual PCP Team Chronic Disease Visit Annual PCP Team Chronic Disease Visit [facility] Start: 08-24-2025 BP Controlled (<130/80) BP Controlled (<130/80) [facility] Start: 08-24-2025 Covid-19 Vaccine () Covid-19 Vaccine () [facility] Comment on above: Postponed from 06/17/2024 (Declined at t his time) Start: 07-16-2025 End: 07-16-2025 Patient encounter procedure 07/16/2025 11:00 AM EDT Office Visit [facility] [address] [place] [address] Americo Borrego MD [address] [place] [address] 3 month follow up [facility] Gu[place] Comment on above: 3 month follow up Start: 07-13-2025 End: 10-12-2025 Comprehensive metabolic 2000 panel - Serum or Plasma COMPREHENSIVE METABOLIC PANEL Lab Routine Hyperlipidemia, unspecified hyperlipidemia type Type 2 diabetes mellitus with hyperglycemia, with long-term current use of insulin (HCC) Essential hypertension Expected: 07/13/2025 (Approximate), Expires: 10/12/2025 [facility] Work Phone: Comment on above: Expected: 07/13/2025 (Approximate), Expi res: 10/12/2025 Start: 07-13-2025 End: 10-12-2025 Hemoglobin A1c in Blood HEMOGLOBIN A1C Lab Routine Type 2 diabetes mellitus with hyperglycemia, with long-term current use of insulin (HCC) Expected: 07/13/2025 (Approximate), Expires: 10/12/2025 [facility] Comment on above: Expected: 07/13/2025 (Approximate), Expi res: 10/12/2025 Start: 07-13-2025 End: 10-12-2025 Lipid 1996 panel - Serum or Plasma LIPID PANEL, FASTING Lab Routine Hyperlipidemia, unspecified hyperlipidemia type Type 2 diabetes mellitus with hyperglycemia, with long-term current use of insulin (HCC) Essential hypertension Expected: 07/13/2025 (Approximate), Expires: 10/12/2025 [facility] Comment on above: Expected: 07/13/2025 (Approximate), Expi res: 10/12/2025 Start: 06-17-2025 Influenza vaccination [facility] Start: 05-22-2025 Annual PCP Team Chronic Disease Visit Annual PCP Team Chronic Disease Visit [facility] Start: 05-22-2025 Anxiety Screening Anxiety Screening [facility] Start: 05-22-2025 BP Controlled (<130/80) BP Controlled (<130/80) [facility] Start: 05-14-2025 BP Controlled (<130/80) BP Controlled (<130/80) [facility] Start: 05-09-2025 Hepatitis B screening Urine Albumin:Creatinine Ratio [facility] Start: 05-09-2025 Hepatitis B surface antibody level LDL Cholesterol [facility] Start: 04-15-2025 Influenza vaccination Influenza Vaccine (#1) [place] harding Comment on above: Postponed from 06/17/2024 (Declined at t his time) Start: 04-12-2025 End: 04-12-2025 Patient encounter procedure 04/12/2025 11:40 AM EDT Office Visit [facility] [address] [place] [place] [id number] Americo Borrego MD [address] [place] [id number] 3 mo f/u [facility] Comment on above: 3 mo f/u Start: 04-10-2025 End: 07-10-2025 Comprehensive metabolic 2000 panel - Serum or Plasma COMPREHENSIVE METABOLIC PANEL Lab Routine Type 2 diabetes mellitus without complication, 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 oil heaterman insulin use (HCC) Hyperlipidemia, unspecified hyperlipidemia type Expected: 04/10/2025 (Approximate), Expires: 07/10/2025 [facility] Work Phone: Comment on above: Expected: 04/10/2025 (Approximate), Expi res: 07/10/2025 Start: 04-10-2025 End: 07-10-2025 Hemoglobin A1c in Blood HEMOGLOBIN A1C Lab Routine Type 2 diabetes mellitus without complication, 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 oil heaterman insulin use (HCC) Expected: 04/10/2025 (Approximate), Expires: 07/10/2025 [facility] Comment on above: Expected: 04/10/2025 (Approximate), Expi res: 07/10/2025 Start: 04-10-2025 End: 07-10-2025 Lipid 1996 panel - Serum or Plasma LIPID PANEL, FASTING Lab Routine Type 2 diabetes mellitus without complication, 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 usp insulin use (HCC) Hyperlipidemia, unspecified hyperlipidemia type Expected: 04/10/2025 (Approximate), Expires: 07/10/2025 [facility] Comment on above: Expected: 04/10/2025 (Approximate), Expi res: 07/10/2025 Start: 03-24-2025 Hemoglobin A1c measurement HbA1C [facility] Start: 02-19-2025 Annual PCP Team Chronic Disease Visit Annual PCP Team Chronic Disease Visit [facility] Start: 02-19-2025 BP Controlled (<130/80) BP Controlled (<130/80) [facility] Start: 02-19-2025 Covid-19 Vaccine () Covid-19 Vaccine () [facility] Comment on above: Postponed from 06/17/2023 (Declined at t his time) Start: 01-15-2025 Hepatitis B surface antibody level LDL Cholesterol [facility] Start: 11-29-2024 End: 11-29-2024 Patient encounter procedure 11/29/2024 11:00 AM EST Office Visit [facility] [address] [place] [address] Malika Sethi, VETERINARY ASSISTANT.CONTOUR PATH TAPE MILL OPERATOR [address] [place] [address] 3 month follow up [facility] Comment on above: 3 month follow up Start: 11-24-2024 End: 02-23-2025 CBC W Auto Differential panel - Blood COMPLETE BLOOD COUNT AND DIFFERENTIAL Lab Routine Gastroesophageal reflux disease, 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 esophagitis present Hyperlipidemia, unspecified hyperlipidemia type 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 Expected: 11/24/2024 (Approximate), Expires: 02/23/2025 [facility] Comment on above: Expected: 11/24/2024 (Approximate), Expi res: 02/23/2025 Start: 11-24-2024 End: 02-23-2025 Comprehensive metabolic 2000 panel - Serum or Plasma COMPREHENSIVE METABOLIC PANEL Lab Routine Hyperlipidemia, unspecified hyperlipidemia type Type 2 diabetes mellitus with hyperglycemia, with long-term current use of insulin (HCC) Expected: 11/24/2024 (Approximate), Expires: 02/23/2025 [facility] Comment on above: Expected: 11/24/2024 (Approximate), Expi res: 02/23/2025 Start: 11-24-2024 End: 02-23-2025 Hemoglobin A1c in Blood HEMOGLOBIN A1C Lab Routine Type 2 diabetes mellitus with hyperglycemia, with long-term current use of insulin (HCC) Expected: 11/24/2024 (Approximate), Expires: 02/23/2025 [facility] Comment on above: Expected: 11/24/2024 (Approximate), Expi res: 02/23/2025 Start: 11-24-2024 End: 02-23-2025 Lipid 1996 panel - Serum or Plasma LIPID PANEL BASIC Lab Routine Hyperlipidemia, unspecified hyperlipidemia type Expected: 11/24/2024 (Approximate), Expires: 02/23/2025 [facility] Work Phone: Comment on above: Expected: 11/24/2024 (Approximate), Expi res: 02/23/2025 Start: 11-11-2024 Hemoglobin A1c measurement HbA1C [facility] Start: 10-17-2024 Medicare Advantage Annual Wellness Visit Medicare Advantage Annual Wellness Visit [facility] Start: 09-03-2024 End: 09-03-2024 Patient encounter procedure 09/03/2024 1:45 PM EST Office Visit [facility] [address] [place] [address] Mia Pollack, OD [address] [place] [address] Type 2 diabetes mellitus without complication, 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 oil heaterman insulin use (HCC) [E11.9] Ophthalmology Comment on above: Type 2 diabetes mellitus without complic ation, 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 usp insulin use (HCC) [E11.9] Start: 08-24-2024 End: 08-24-2024 Patient encounter procedure [facility] Comment on above: 3 mo f/u A1c Start: 08-22-2024 End: 11-21-2024 CBC panel - Blood by Automated count COMPLETE BLOOD COUNT Lab Routine Essential hypertension Expected: 08/22/2024 (Approximate), Expires: 11/21/2024 [facility] Comment on above: Expected: 08/22/2024 (Approximate), Expi res: 11/21/2024 Start: 08-22-2024 End: 11-21-2024 Comprehensive metabolic 2000 panel - Serum or Plasma COMPREHENSIVE METABOLIC PANEL Lab Routine Type 2 diabetes mellitus without complication, 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 usp insulin use (HCC) Essential hypertension Expected: 08/22/2024 (Approximate), Expires: 11/21/2024 [facility] Comment on above: Expected: 08/22/2024 (Approximate), Expi res: 11/21/2024 Start: 08-22-2024 End: 11-21-2024 Hemoglobin A1c in Blood HEMOGLOBIN A1C Lab Routine Type 2 diabetes mellitus without complication, 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 usp insulin use (HCC) Expected: 08/22/2024 (Approximate), Expires: 11/21/2024 [facility] Work Phone: Comment on above: Expected: 08/22/2024 (Approximate), Expi res: 11/21/2024 Start: 08-14-2024 End: 08-14-2024 Patient encounter procedure 08/14/2024 10:00 AM EDT Office Visit [facility] [address] [place], [place] [address] Mia Pollack, OD [address] [place] [address] Type 2 diabetes mellitus without complication, 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 oil heaterman insulin use (HCC) [E11.9] Ophthalmology Comment on above: Type 2 diabetes mellitus without complic ation, 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 oil heaterman insulin use (HCC) [E11.9] Start: 08-09-2024 Hemoglobin A1c measurement HbA1C [facility] Start: 06-29-2024 Annual PCP Team Chronic Disease Visit Annual PCP Team Chronic Disease Visit [facility] Start: 06-29-2024 BP Controlled (<130/80) BP Controlled (<130/80) [facility] Start: 06-29-2024 Hepatitis B Vaccine (1 of 3 - 19+ 3-dose series) Hepatitis B Vaccine (1 of 3 - 19+ 3-dose series) [facility] Comment on above: Postponed from 1987 (Declined at t his time) Start: 06-29-2024 Hepatitis B Vaccine (1 of 3 - 3-dose series) Hepatitis B Vaccine (1 of 3 - 3-dose series) [facility] Comment on above: Postponed from 1968 (Declined at t his time) Start: 06-29-2024 Shingrix Vaccine (1 of 2) Shingrix Vaccine (1 of 2) [facility] Comment on above: Postponed from 2018 (Declined at t his time) Start: 06-17-2024 Covid-19 Vaccine ( season) Covid-19 Vaccine ( season) [facility] [place] Start: 06-17-2024 Covid-19 Vaccine ( season) Covid-19 Vaccine ( season) [facility] [place] Start: 06-17-2024 Influenza vaccination [facility] [place] Start: 05-22-2024 End: 08-21-2024 Comprehensive metabolic 2000 panel - Serum or Plasma COMPREHENSIVE METABOLIC PANEL Lab Routine Type 2 diabetes mellitus without complication, 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 usp insulin use (HCC) Essential hypertension Hyperlipidemia, unspecified hyperlipidemia type Expected: 05/22/2024 (Approximate), Expires: 08/21/2024 [facility] Work Phone: Comment on above: Expected: 05/22/2024 (Approximate), Expi res: 08/21/2024 Start: 05-22-2024 End: 08-21-2024 Hemoglobin A1c in Blood HEMOGLOBIN A1C Lab Routine Type 2 diabetes mellitus without complication, 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 oil heaterman insulin use (HCC) Expected: 05/22/2024 (Approximate), Expires: 08/21/2024 [facility] [place] Comment on above: Expected: 05/22/2024 (Approximate), Expi res: 08/21/2024 Start: 05-22-2024 End: 08-21-2024 Lipid 1996 panel - Serum or Plasma LIPID PANEL BASIC Lab Routine Type 2 diabetes mellitus without complication, 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 usp insulin use (HCC) Essential hypertension Hyperlipidemia, unspecified hyperlipidemia type Expected: 05/22/2024 (Approximate), Expires: 08/21/2024 [facility] [place] Comment on above: Expected: 05/22/2024 (Approximate), Expi res: 08/21/2024 Start: 05-22-2024 End: 08-21-2024 Microalbumin/Creatinin e [Mass Ratio] in Urine ALBUMIN/CREATININE RATIO, URINE Lab Routine Type 2 diabetes mellitus without complication, 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 oil heaterman insulin use (HCC) Essential hypertension Expected: 05/22/2024 (Approximate), Expires: 08/21/2024 [facility] [place] Comment on above: Expected: 05/22/2024 (Approximate), Expi res: 08/21/2024 Start: 05-22-2024 End: 05-22-2024 Patient encounter procedure Pulmonary Medicine Comment on above: Encounter for screening for lung cancer [Z12.2] 3 mo f/u Start: 05-22-2024 End: 05-22-2024 ambulatory [facility] Comment on above: Encounter for screening for lung cancer [Z12.2] Start: 04-16-2024 Hemoglobin A1c measurement HbA1C [facility] [place] Start: 04-15-2024 Influenza vaccination Influenza Vaccine (#1) [facility]ing Comment on above: Postponed from 06/17/2023 (Declined at t his time) Start: 03-30-2024 Hepatitis B surface antibody level LDL CHOLESTEROL [facility] [place] Start: 03-29-2024 ANNUAL PCP TEAM CHRONIC DISEASE VISIT ANNUAL PCP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 (LIPITOR) 40 mg tablet Take 1 tablet by mouth daily at bedtime. fluticasone-vilanterol (BREO ELLIPTA) 100-25 mcg/dose inhaler take 1 inhalation by mouth once daily insulin needles, DISPOSABLE, 31 gauge x 5/16 Use to inject insulin three times daily as directed guaiFENesin (MUCINEX) 600 mg 12 hr tablet Take 600 mg by mouth twice daily as needed. acetaminophen (TYLENOL EXTRA STRENGTH) 500 mg tablet Take 500 mg by mouth every 8 hours as needed. loratadine (CLARITIN) 10 mg tablet Take 1 tablet by mouth once daily. BIPAP Initiate BiPAP @ 23/17 cm of water with humidification. Mask (per patient preference) optional chin strap (if indicated) , filters, tubing, humidifier and lifetime supplies. COMPOUNDED PRESCRIPTION 1 Each four times daily as needed. NEBULIZER FOR HOME USE. DX: COPD No current facility-administered medications for this visit. FAMILY HISTORY Problem Relation Age of Onset Heart Father Alcohol/Drug Father Coronary Artery Disease Father Hypertension Father COPD Mother Breast Cancer Mother Cancer Mother Lung COPD Maternal Grandmother Allergies Brother Social History Tobacco Use Smoking status: Former Packs/day: 1.50 Years: 32.00 Additional pack years: 0.00 Total pack years: 48.00 Types: Cigarettes Start date: 1983 Quit date: 04/02/2015 Years since quittin.2 Smokeless tobacco: Current Types: Chew Tobacco comments: Both parents smoked in childhood. Lived with smokers as adult. No one in current home currently smokes. Vaping Use Vaping Use: Never used Substance Use Topics Alcohol use: No Drug use: No REVIEW OF SYSTEMS GENERAL: No weight loss, malaise or fevers/chills HEENT: Negative for frequent or significant headaches, No changes in hearing or vision. NECK: Negative for lumps, goiter, pain and significant neck swelling RESPIRATORY: Negative for cough, hemoptysis, wheezing, dyspnea or shortness of breath CARDIOVASCULAR: Negative for chest pain, leg swelling, orthopnea, or palpitations GI: No nausea, vomiting, or diarrhea/constipation. No hematochezia/melena. No heartburn or reflux symptoms. : No history of dysuria, frequency or incontinence MUSCULOSKELETAL: Negative for joint pain or swelling. SKIN: Negative for lesions, rash, and itching ENDOCRINE: Negative for cold or heat intolerance, polyuria, polydipsia and goiter NEURO: No history of headaches, syncope, paralysis, seizures or tremors MOOD: Negative for depression, anxiety, or suicidal ideation. EXAM: BP 110/70 Pulse 80 Resp 16 Wt (!) 137.9 kg (304 lb) SpO2 97% BMI 42.40 kg/m PHYSICAL EXAM: General Appearance: Well appearing, alert, in no acute distress, well-hydrated, well nourished. Skin: Skin color, texture, turgor normal, no suspicious rashes or lesions. Head: Normocephalic, no masses, lesions, tenderness or abnormalities. Eyes: Anicteric sclera. Extraocular movements are intact. Lungs: Lungs clear to auscultation. No wheezing, rhonchi, rales. Heart: RRR without murmur, gallop, or rubs. No ectopy. Extremities: No deformities, edema, skin discoloration, clubbing or cyanosis. Good capillary refill. Peripheral Pulses: Normal, Capillary refill <2secs, strong peripheral pulses, Pulses palpable. Neurologic: Gait normal. Reflexes normal and symmetric. Sensation grossly intact. Component Latest Ref Rng & Units 06/23/2023 Protein, Total 6.3 - 8.0 g/dL 7.2 Albumin 3.9 - 4.9 g/dL 4.4 Calcium 8.5 - 10.2 mg/dL 9.9 Bilirubin, Total 0.2 - 1.3 mg/dL 0.6 Alkaline Phosphatase 38 - 113 U/L 101 AST 14 - 40 U/L 54 (H) ALT 10 - 54 U/L 46 Glucose 74 - 99 mg/dL 210 (H) BUN 9 - 24 mg/dL 15 Creatinine 0.73 - 1.22 mg/dL 0.64 (L) Sodium 136 - 144 mmol/L 138 Potassium 3.7 - 5.1 mmol/L 4.1 Chloride 97 - 105 mmol/L 101 CO2 22 - 30 mmol/L 23 Anion Gap 9 - 18 mmol/L 14 eGFR >=60 mL/min/1.73m 112 Hemoglobin A1C 4.3 - 5.6 % 9.9 (H) Estimated Average Glucose mg/dL 237 ASSESSMENT/PLAN: 1. Type 2 diabetes mellitus without complication, 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 usp insulin use (HCC) -ICD9: 250.00, ICD10: E11.9 (primary diagnosis) - Worsening control - Continue current medications, Starting Jardiance today - Counseled on healthy diet and regular exercise - Discussed need for and benefit of weight loss. BMI 42.40 kg/(m^2) - May titrate insulin, see wrap up . - Schedule appt with Clinical Pharmacy. - COMP METABOLIC PANEL - HGB A1C - CONSULT TO ENDOCRINOLOGY AMBULATORY CLINIC PHARMACY 2. Essential hypertension - ICD9: 401.9, ICD10: I10 - Controlled - Recommend home blood pressure monitoring, to bring results to next visit - Encouraged sodium restriction, DASH or Mediterranean diet - Recommend regular aerobic exercise - Discussed need for and benefit of weight loss. BMI 42.40 kg/(m^2) 3. Hyperlipidemia, unspecified hyperlipidemia type - ICD9: 272.4, ICD10: E78.5 - Controlled - Continue current medications - Counseled on healthy diet and regular exercise - ATORVASTATIN 40 MG TABLET 4. Depression, unspecified depression type - ICD9: 311, ICD10: F32.A - Stable, continue to take medication as prescribed. 5. FAISAL (generalized anxiety disorder) - ICD9: 300.02, ICD10: F41.1 - Same plan as #4. 6. Chronic obstructive pulmonary disease, unspecified COPD type (HCC) - ICD9: 496, ICD10: J44.9 - Stable, refill provided. - FLUTICASONE FUROATE 100 MCG-VILANTEROL 25 MCG/DOSE INHALATION POWDER 7. Gastroesophageal reflux disease, 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 esophagitis present - ICD9: 530.81, ICD10: K21.9 - Stable, continue to take current medication. 8. Obstructive sleep apnea treated with BiPAP - ICD9: 327.23, ICD10: G47.33 - Stable 9. Encounter for screening for lung cancer - ICD9: V76.0, ICD10: Z12.2 - CONSULT LUNG CANCER SCREENING CLINIC Follow up in 3 months or sooner as needed. Discussed treatment plan and patient voices understanding. Patient's questions answered appropriately. Medications and potential side effects were discussed and patient voices understanding. Malika Sethi APRN.CNP This note was partially generated using [employer] voice recognition system. Note was reviewed for accuracy. There may be minor misspellings or grammar miscues with [employer] voice recognition. documented in this encounterSelect Medical [facility] [place]09-08-2023 Miscellaneous Notes* Telephone Encounter - Dean Goldberg APRN.CNP - 06/24/2023 2:45 PM EDT The following approved medication requests have been transmitted electronically. Requested Prescriptions Pending Prescriptions Disp Refills omeprazole (PRILOSEC) 20 mg capsule 60 capsule 11 Sig: Take 1 capsule by mouth twice daily. 1/2 hr before meal. Dean Goldberg APRN.CNP * Telephone Encounter - Zulma Gloria Ma - 06/24/2023 1:56 PM EDT Last office visit: 03/29/23 F/u scheduled: 06/29/23 Zulma Gloria Ma * Telephone Encounter - Deyanira Bazzi - 06/24/2023 1:40 PM EDT Patient has been identified by name and date of : Yes Requested Prescriptions Pending Prescriptions Disp Refills omeprazole (PRILOSEC) 20 mg capsule 60 capsule 11 Sig: Take 1 capsule by mouth twice daily. 1/2 hr before meal. RX INSTRUCTIONS: Patient aware RX will be sent to pharmacy. No need to notify patient. Deyanira Bazzi documented in this encounterSelect Medical [facility], [place]08-31-2023 Miscellaneous Notes* Telephone Encounter - Lluvia Bright Ma - 06/16/2023 3:21 PM EDT The following approved medication requests have been transmitted electronically. Requested Prescriptions Signed Prescriptions Disp Refills insulin lispro (HUMALOG KWIKPEN INSULIN) 100 unit/mL 15 mL 5 Sig: Inject 30 Units subcutaneously daily with dinner. Authorizing Provider: AMERICO BORREGO empagliflozin (JARDIANCE) 10 mg tablet 30 tablet 11 Sig: Take 1 tablet by mouth once daily. Take 1 tablet once daily in the morning Authorizing Provider: AMERICO BORREGO Ma * Telephone Encounter - Americo Borrego MD - 06/16/2023 3:18 PM EDT OK to change Novolog to Humalog; Invokana to Jardiance Americo Borrego MD * Telephone Encounter - Avelina Sweet Ma - 06/16/2023 1:44 PM EDT [facility] verify regarding inhaler since when sent pharm note is to dispense formulary option. They advised rx does go through so this does not need changed. Patient is aware. Please see patient message where insulin and oral diabetic med need changed Avelina Sweet Ma * Telephone Encounter - Victoria Santos - 06/16/2023 1:27 PM EDT Eliel Souza is calling Americo Borrego MD today with concern regarding medication not covered by insurance: 1.Albuterol HFA actuation (Proventil) actuation inhaler They are asking to replace that with the following which is covered: Albuerol HFA Proair, 2. Second medication not covered Novolog flexpen not covered Change to Humalog or lispro or Lyumjev 3.third medication not covered Invokana Change to Farxiga or jardiance please send to pharmacy/ [facility] for next RX pick-up. Please notify patient of provider response, phone number [phone] Patient has been identified by name and birthdate. Person calling: self Call patient at: on cell [phone] (home) [phone] (cell) Was an appointment scheduled: No Closing statement: Results or non-symptom based questions: Thank you for calling [facility] [place], your call will be returned within the next business day. Victoria Lancaster documented in this encounterSelect Medical [facility] [place]07-10-2023 Miscellaneous Notes* Telephone Encounter - Americo Borrego MD - 04/25/2023 12:09 PM EDT OK to refill as ordered. Americo Borrego MD * Telephone Encounter - Deyanira Bazzi - 04/25/2023 11:02 AM EDT Patient has been identified by name and date of : Yes Requested Prescriptions Pending Prescriptions Disp Refills insulin detemir U-100 (LEVEMIR FLEXTOUCH U-100 INSULIN) 100 unit/mL (3 mL) injection pen 8 Each 5 Sig: Inject 45 Units subcutaneously twice daily. insulin aspart U-100 (NOVOLOG FLEXPEN U-100 INSULIN) 100 unit/mL (3 mL) 15 mL 3 Sig: Inject 30 Units subcutaneously daily with dinner. albuterol HFA (PROVENTIL HFA, VENTOLIN HFA) 90 mcg/actuation inhaler 1 Each 3 Sig: Inhale 2 Puffs as instructed every 4 hours as needed for wheezing/shortness of breath. TAYA-03/29/23 Labs- NOV-06/29/23 Insulins were not sent to pharmacy in March- update only. RX INSTRUCTIONS: Patient aware RX will be sent to pharmacy. No need to notify patient. Deyanira Bazzi documented in this encounterSelect [facility] [place]03-17-2023 Miscellaneous Notes* Telephone Encounter - Zulma Gloria Ma - 12/31/2022 9:57 AM EDT Letter mailed to pt home notify pt that his rx has been refilled but he is in need of appt for any further refills as pt has not called office back after we have left messages. Zulma Gloria Ma * Telephone Encounter - Zulma Gloria Ma - 12/28/2022 10:23 AM EDT Additional message left for pt to call back. Needs appt for any further refills. Zulma Gloria Ma * Telephone Encounter - Zulma Gloria Ma - 12/25/2022 10:24 AM EST Message left for pt to call back. Needs appt and labs prior. Pt no showed appt today 12/25/22 * Telephone Encounter - Americo Borrego MD - 12/25/2022 10:01 AM EST OK to refill as ordered He needs to get fasting labs done and reschedule appt Americo Borrego MD * Telephone Encounter - Zulma Gloria Ma - 12/25/2022 9:39 AM EST Last office visit: 01/07/22 F/u scheduled: Pt no showed his appt today. Zulma Gloria Ma * Telephone Encounter - Manjula Muñoz Pss - 12/25/2022 9:28 AM EST Patient has been identified by name and date of : Yes Last office visit in this department: 09/09/2021 RX INSTRUCTIONS: Patient aware RX will be sent to pharmacy. No need to notify patient. Patient phones requesting refills as follows: Requested Prescriptions Pending Prescriptions Disp Refills canagliflozin (INVOKANA) 300 mg tablet 30 tablet 11 Sig: Take 1 tablet by mouth daily with breakfast. Please review and advise. Manjula Muñoz Pss documented in this encounterSelect Medical [facility] [place]02-20-[address] Whiteside [facility] December 06, 2022 2:25pm Note Date/Time December 06, 2022 12:02pm [facility] Medical Records Department [address] [place] [id number] Emergency Department Summary 12/06/22 MR#: [id number] Acct: [id number] Name: ELIEL SOUZA Rep #:[id number] : 1970 52 From: Sameer Whiteside MD PCP: Dr. Americo Borrego MD Status:RE G ER Location: ED HPI History of Present Illness Chief Complaint: Nausea/Vomiting/Diarrhea Detail of Chief Complaint: Nausea, vomiting diarrhea that started 30 hours Informant: patient Onset/Context/Timing Onset: Yesterday Context: Sudden Onset Timing: Intermittent Quality: Nausea, vomiting and diarrhea and a little chest discomfort Location: Mid chest Current Severity: Gone Maximum Severity: Mild Worsened by: Nothing Relieved by: Nothing Associated Symptoms Associated Symptoms: Denies, patient minimizes Narrative Narrative: Patient is a 52-year-old male with history of type 2 diabetes on insulin, hypertension, GERD, coronary disease status post angioplasty who presents with nausea, vomiting and diarrhea that started 30 hours ago. Patient's had significant mount of vomiting. He does endorse dry mouth, thirst but denies lightheadedness. He states he does not feel well. He states his blood sugar was 380 this morning. He states he is surprised since he has had nothing to eat. He does endorse diarrhea. States too many times to remember. He does report mucus without blood. He has history diverticulosis without history of diverticulitis and denies history of Crohn's or ulcerative colitis. Patient presently has no abdominal pain. He does endorse decreased urine output. He denies fever, chills or night sweats. He denies myalgias or arthralgias. Prior similar symptoms: Yes Recent Illness/Hospitalization: No PFSH [facility] Medical History (Updated 12/06/22 @ 14:[address] Sameer Whiteside MD) COPD (chronic obstructive pulmonary disease) Diabetes mellitus Diverticula of colon DVT (deep venous thrombosis) GERD (gastroesophageal reflux disease) HTN (hypertension) Home Medications albuterol sulfate 2.5 mg/3 mL (0.083 %) solution for nebulization 2.5 mg inhalation Q6H PRN PRN Sob &/Or Wheezing 01/03/16 [History Last Taken 11/18/16 04:00] atorvastatin 40 mg tablet 40 mg PO QHS 01/03/16 [History Last Taken 08/05/19] citalopram 20 mg tablet 30 mg PO DAILY 01/03/16 [History Last Taken 08/06/19] glimepiride 2 mg tablet 2 mg PO DAILY 01/03/16 [History Last Taken 08/06/19] lisinopril 10 mg tablet 10 mg PO DAILY 01/03/16 [History Last Taken 08/06/19] fluticasone furoate 100 mcg-vilanterol 25 mcg/dose inhalation powder (Breo Ellipta) 1 ea IH DAILY ##1 05/25/16 [Rx Last Taken 08/06/19] albuterol sulfate 90 mcg/actuation aerosol inhaler (Ventolin HFA) 2 puff inhalation Q2H PRN PRN COUGH/WHEEZE ##0 11/20/16 [Rx Last Taken 08/06/19] insulin detemir U-100 100 unit/mL (3 mL) subcutaneous pen 50 units subcut QHS 08/06/19 [History Last Taken 08/05/19] omeprazole 40 mg capsule,delayed release 20 mg PO DAILY 08/06/19 [History Last Taken 08/06/19] canagliflozin 100 mg tablet 100 mg PO DAILY 09/11/20 [History Last Taken Unknown] ibuprofen 800 mg tablet 800 mg PO Q8H PRN Pain 1-10 Or Fever 09/11/20 [History Last Taken Unknown] oxycodone-acetaminophen 5 mg-325 mg tablet 1 tab PO Q6H PRN PRN Pain 1-10 Or Fever 09/11/20 [History Last Taken Unknown] loperamide 2 mg capsule (Imodium A-D) 2 mg PO Q4H PRN loose stool #10 caps 12/06/22 [Rx Last Taken Unknown] ondansetron 4 mg disintegrating tablet 4 mg PO Q8H PRN PRN Nausea #10 tabs 12/06/22 [Rx Last Taken Unknown] Allergy/AdvReac Type Severity Reaction Status Date / Time No Known Allergies Allergy Verified 09/11/20 18:11 Social History (Updated 12/06/22 @ 11:[address] Sameer Whiteside MD) household members: none Smoking Status: Former smoker substance use type: does not use ROS ROS ED Constitutional Constitutional ED: Denies chills, fever(s), subjective, sweats or weight loss Eyes Eyes: Denies blurry vision, change in vision or diplopia ENT ENT ED: Denies ear pain, rhinorrhea or sore throat Cardiovascular Cardiovascular: Reports chest pain; Denies orthopnea, palpitations, paroxysmal nocturnal dyspnea or racing heartbeat Respiratory/Chest Respiratory/Chest: Denies cough, dyspnea, dyspnea on exertion, orthopnea or paroxysmal nocturnal dyspnea Gastrointestinal Gastrointestinal: Reports diarrhea, nausea and vomiting; Denies abdominal pain, constipation or melena Genitourinary Genitourinary ED: Denies dysuria, hematuria or urinary frequency Musculoskeletal Musculoskeletal: Reports myalgias; Denies arthralgias, back pain or neck pain Integumentary Denies rash Neurologic Neurologic: Denies paresthesias or weakness Psychiatric Psychiatric: Denies anxiety or depression Endocrine Endocrinology: Denies cold intolerance, heat intolerance or polydipsia Hematologic/Lymphatic Hematologic/Lymphatic: Reports systems reviewed and no addt'l complaints, exceptas documented Allergic/Immunologic Allergic/Immunologic ED: Denies mouth swelling, tongue swelling or urticaria EXAM Physical Exam Const Vital Signs: 12/06/22 11:19 12/06/22 13:19 Temperature 97.4 F L Temperature Source Temporal Pulse Rate 107 H 83 Respiratory Rate 18 16 Blood Pressure 155/120 H 154/78 H Blood Pressure Mean 131 103 Pulse Ox 97 97 Oxygen Delivery Method Room Air Room Air Positive well nourished, well developed, obese and unkempt General Appearance ED: unkempt, well developed and pallor; Negative for cyanotic, diaphoretic or NAD Nutritional Appearance: obese HEENT Reports dry mucous membranes HEENT Narrative: Head is atraumatic normocephalic. Ears normal. Nares patent. Posterior pharynx is normal. Mouth ED: Yes dry mucous membranes Mouth: dry mucous membranes Eyes PERRL and EOMs intact bilaterally General Eye ED: Negative for pale conjunctiva or scleral icterus Neck no lymphadenopathy, supple and no JVD Chest Wall inspection of chest normal and palpation of chest normal Resp normal respiratory effort and clear to auscultation bilaterally Cardio regular rhythm, S1 normal heart sound, S2 normal heart sound and no murmurs GI normal to inspection, nondistended, normoactive bowel sounds, non-tender, non-distended and no masses; Negative for hepatosplenomegaly Back/Spine no CVA tenderness Cervical Spine: Negative for cervical spine tenderness Thoracic Spine / Upper Back: Negative for thoracic spinal tenderness Lumbar Spine / Lower Back: Negative for lumbar spinal tenderness Extremity Negative for normal to inspection General Extremety ED: Yes edema; Negative for tenderness or other findings General Extremity: edema; Negative for other findings Neuro oriented x3, CN's II-XII intact bilaterally and no sensory deficits noted Sensorium / Orientation: alert Psych Psych Narrative: Affect is flat. Appearance: unkempt Skin no rashes or lesions noted, no wounds and No skin turgor normal General Skin Exam: pallor; Negative for elasticity normal or jaundice MDM MDM MDM Narrative Medical decision making narrative: Clinically patient appears dehydrated. With history of coronary disease will obtain EKG to rule out acute cardiac ischemia as well as troponin. He also has multiple risk factors for coronary disease. History is not suggestive of cardiac disease however he is diabetic. Since his blood sugar is elevated will obtain basic metabolic panel to assess glucose, CO2 anion gap as well as electrolytes and specifically to evaluate for hypokalemia. CBC was obtained to assess white count, H&H and differential. 1 L of normal saline was ordered. Zofran was ordered for his nausea and vomiting. Imodium was ordered for his diarrhea. He has no risk factors for pseudomembranous enterocolitis and has no history of pseudomembranous enterocolitis. Lab Data Attestation: I reviewed the patient's lab results. Lab results narrative: CBC is remarkable for elevated hemoglobin which would represent dehydration. Basic metabolic panel reveals mild hyponatremia, BUN/creatinine ratio is elevated at 24-1 with a BUN of 23. GFR is normal. Troponin is normal. Glucoseis elevated at 346 with a normal CO2 and anion gap. Labs: Laboratory Results - last 24 hr 12/06/22 12/06/22 12:10 12:10 WBC 7.7 RBC 6.44 H Hgb 18.5 H* Hct 53.7 MCV 83.4 MCH 28.7 MCHC 34.5 RDW Std Deviation 39.5 RDW Coeff of Nai 13.2 Plt Count 125 L MPV 11.0 Immature Gran % (Auto) 0.800 Neut % (Auto) 73.9 H Lymph % (Auto) 12.2 L [place] % (Auto) 11.6 H Eos % (Auto) 1.0 Baso % (Auto) 0.5 Absolute Neuts (auto) 5.7 Absolute Lymphs (auto) 0.94 Nucleated RBC % 0 Diff Path Review May foll Sodium 132 L Potassium 4.1 Chloride 99 Carbon Dioxide 22.0 Anion Gap 11 BUN 23 H Creatinine 0.98 Estim Creat Clear Calc 91.78 Est GFR (MDRD) Af Amer 103 Est GFR (MDRD) Non-Af 85 BUN/Creatinine Ratio 23.6 H Glucose 346 H Calcium 9.5 Troponin I High Sens 15 Rhythm Strip Rhythm Strip: Sinus Tach Rate: 102 EKG Initial EKG: Attestation: I personally reviewed and interpreted this EKG as follows: Interpretation: Sinus Rhythm (Rate is 90. [employer] to the right. [place] intervalis under 68 ms. QRS duration 98 ms. QT duration 374 ms. There is no ischemic changes noted.) Prior: Unchanged (November 18, 2016) Treatment and Re-Evaluation Narrative: Patient had 1 episode of diarrhea prior to receiving Imodium. He has not had vomiting or diarrhea since treatment. He feels better after fluid bolus. Heartrate is improved from 107-83. Discharge Plan Triage Chief Complaint: Nausea/Vomiting/Diarrhea ED Provider: Sameer Whiteside Dx/Rx/DC Orders Clinical Impression: Nausea vomiting and diarrhea, Hyperglycemia due to type 2 diabetes mellitus, Hyperlipidemia, Coronary artery disease, Hypertension, CATY (obstructive sleep apnea), Acute prerenal azotemia, Sinus tachycardia Instructions: ED Vomiting and Diarrhea ... Prescriptions: New ondansetron [ondansetron] 4 mg tablet,disintegrating 4 mg PO Q8H PRN PRN (Reason: Nausea) Qty: 10 0RF loperamide [Imodium A-D] 2 mg capsule 2 mg PO Q4H PRN (Reason: loose stool) Qty: 10 0RF Rx Instructions: administer after each loose stool until symptoms controlled; do not exceed 8 mg per 24 hrs No Action atorvastatin 40 MG tablet 40 mg PO QHS Label Comments: cholesterol albuterol sulfate 2.5 MG/3 ML solution for nebulization 2.5 mg inhalation Q6H PRN PRN (Reason: Sob &/Or Wheezing) Label Comments: breathing glimepiride 2 MG tablet 2 mg PO DAILY Label Comments: diabetes citalopram 20 MG tablet 30 mg PO DAILY Label Comments: depression lisinopril 10 MG tablet 10 mg PO DAILY Label Comments: blood pressure fluticasone furoate-vilanterol [Breo Ellipta] 1 EACH blister with device 1 ea IH DAILY Qty: 1 1RF Label Comments: breathing albuterol sulfate [Ventolin HFA] 1 INHALER inhaler 2 puff inhalation Q2H PRN PRN (Reason: COUGH/WHEEZE) Qty: 0 0RF Label Comments: breathing omeprazole 40 MG capsule,delayed release(DR/EC) 20 mg PO DAILY insulin detemir U-100 100 UNITS/ML insulin pen 50 units subcut QHS ibuprofen 800 MG tablet 800 mg PO Q8H PRN (Reason: Pain 1-10 Or Fever) oxycodone-acetaminophen 1 TABLET tablet 1 tab PO Q6H PRN PRN (Reason: Pain 1-10 Or Fever) canagliflozin 100 MG tablet 100 mg PO DAILY Primary Care Provider: Americo Borrego Referrals: Americo Borrego MD [Primary Care Provider] - 3-5 Days if not improving Disposition Disposition: Home, Self Care What to do if you have Problems For any increased pain, shortness of breath, bleeding, nausea or vomiting, chestpain, or any unexpected problems, contact your Primary Care Provider. Call [facility] ([phone]) or report to the closest Emergency Room. Call 911 if necessary. 12/06/22 1425 <Electronically signed by Sameer Whiteside MD> Cosigner Signature (if applicable): CC: Dr. Americo Borrego MD ~ Signed [facility] Work Phone: [phone] Miscellaneous Notes* Telephone Encounter - Americo Borrego MD - 11/26/2022 4:30 PM EST OK to refill as ordered Americo Borrego MD * Telephone Encounter - Lluvia Bright Ma - 11/26/2022 4:25 PM EST Last OV: 01/07/22 virtually. Next OV: None Last Rx: 11/03/21 #45 w/11. Lluvia Bright Ma documented in this encounterSelect [facility] [place] Miscellaneous Notes* Telephone Encounter - Malika Sethi APRN.CNP - 07/09/2022 3:08 PM EDT The following approved medication requests have been transmitted electronically. Requested Prescriptions Pending Prescriptions Disp Refills insulin lispro (HUMALOG KWIKPEN INSULIN) 100 unit/mL 1 Each 5 Sig: Inject 20 Units subcutaneously daily with dinner. Malika Sethi APRN.CNP * Telephone Encounter - Aide Chamberlain RN - 07/09/2022 11:32 AM EDT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 Resolved Date Hypophosphatemia 11/12/2019 11/13/2019 Last Assessment & Plan: PLAN: Replete phos>2.5 Hyponatremia 11/09/2019 11/13/2019 Last Assessment & Plan: PLAN: NS IVF Trend na Ileostomy in place 11/09/2019 3 Last Assessment & Plan: Assessment: hx of recurrent diverticulitis with colovesical fistula s/p laparoscopic sigmoid colectomy with colovesical fistula takedown, drainage of intraabdominal abscess, and DLI on 11/08/19 who just underwent a ileostomy closure. PLAN: - Diet advanced to GI soft - Encourage OOB and ambulation x5/day - Has had ROBF - D/C today Colovesical fistula 11/07/2019 11/13/19 20 Last Assessment & Plan: PLAN: Keep townsend catheter XR cysto today --if okay then d/c townsend today Check THERESA cr today. If okay pull THERESA DVT of lower extremity (deep venous thrombosis) 11/17/2010 03/29/2023 Last Assessment & Plan: PLAN: - SubQ heparin ppx Abdominal pain, right upper quadrant 11/04/2010 02/08/2014 documented as of this encounter (statuses as of 09/22/2023) [facility] [place]01-27-2020 History of Past illness Narrative* Problem Noted Date Diagnosed Date Resolved Date Hypophosphatemia 11/12/2019 11/13/2019 Last Assessment & Plan: PLAN: Replete phos>2.5 Hyponatremia 11/09/2019 11/13/2019 Last Assessment & Plan: PLAN: NS IVF Trend na Ileostomy in place 11/09/2019 3 Last Assessment & Plan: Assessment: hx of recurrent diverticulitis with colovesical fistula s/p laparoscopic sigmoid colectomy with colovesical fistula takedown, drainage of intraabdominal abscess, and DLI on 11/08/19 who just underwent a ileostomy closure. PLAN: - Diet advanced to GI soft - Encourage OOB and ambulation x5/day - Has had ROBF - D/C today Colovesical fistula 11/07/2019 11/13/19 Last Assessment & Plan: PLAN: Keep townsend catheter XR cysto today --if okay then d/c townsend today Check THERESA cr today. If okay pull THERESA DVT of lower extremity (deep venous thrombosis) 11/17/2010 03/29/2023 Last Assessment & Plan: PLAN: - SubQ heparin ppx Abdominal pain, right upper quadrant 11/04/2010 02/08/2014 documented as of this encounter (statuses as of 11/22/2023) [facility] [place]01-27-2020 History of Past illness Narrative* Problem Noted Date Diagnosed Date Resolved Date Hypophosphatemia 11/12/2019 11/13/2019 Last Assessment & Plan: PLAN: Replete phos>2.5 Hyponatremia 11/09/2019 11/13/2019 Last Assessment & Plan: PLAN: NS IVF Trend na Ileostomy in place 11/09/2019 Last Assessment & Plan: Assessment: hx of recurrent diverticulitis with colovesical fistula s/p laparoscopic sigmoid colectomy with colovesical fistula takedown, drainage of intraabdominal abscess, and DLI on 11/08/19 who just underwent a ileostomy closure. PLAN: - Diet advanced to GI soft - Encourage OOB and ambulation x5/day - Has had ROBF - D/C today Colovesical fistula 11/07/2019 11/13/19 Last Assessment & Plan: PLAN: Keep townsend catheter XR cysto today --if okay then d/c townsend today Check THERESA cr today. If okay pull THERESA DVT of lower extremity (deep venous thrombosis) 11/17/2010 03/29/2023 Last Assessment & Plan: PLAN: - SubQ heparin ppx Abdominal pain, right upper quadrant 11/04/2010 02/08/2014 documented as of this encounter (statuses as of 11/26/2023) [facility] [place]01-27-2020 History of Past illness Narrative* Problem Noted Date Diagnosed Date Resolved Date Hypophosphatemia 11/12/2019 11/13/2019 Last Assessment & Plan: PLAN: Replete phos>2.5 Hyponatremia 11/09/2019 11/13/2019 Last Assessment & Plan: PLAN: NS IVF Trend na Ileostomy in place 11/09/2019 Last Assessment & Plan: Assessment: hx of recurrent diverticulitis with colovesical fistula s/p laparoscopic sigmoid colectomy with colovesical fistula takedown, drainage of intraabdominal abscess, and DLI on 11/08/19 who just underwent a ileostomy closure. PLAN: - Diet advanced to GI soft - Encourage OOB and ambulation x5/day - Has had ROBF - D/C today Colovesical fistula 11/07/2019 11/13/19 Last Assessment & Plan: PLAN: Keep townsend catheter XR cysto today --if okay then d/c townsend today Check THERESA cr today. If okay pull THERESA DVT of lower extremity (deep venous thrombosis) 11/17/2010 03/29/2023 Last Assessment & Plan: PLAN: - SubQ heparin ppx Abdominal pain, right upper quadrant 11/04/2010 02/08/2014 documented as of this encounter (statuses as of 12/17/2023) [facility] [place]01-27-2020 History of Past illness Narrative* Problem Noted Date Diagnosed Date Resolved Date Hypophosphatemia 11/12/2019 11/13/2019 Last Assessment & Plan: PLAN: Replete phos>2.5 Hyponatremia 11/09/2019 11/13/2019 Last Assessment & Plan: PLAN: NS IVF Trend na Ileostomy in place 11/09/2019 3 Last Assessment & Plan: Assessment: hx of recurrent diverticulitis with colovesical fistula s/p laparoscopic sigmoid colectomy with colovesical fistula takedown, drainage of intraabdominal abscess, and DLI on 11/08/19 who just underwent a ileostomy closure. PLAN: - Diet advanced to GI soft - Encourage OOB and ambulation x5/day - Has had ROBF - D/C today Colovesical fistula 11/07/2019 11/13/19 20 Last Assessment & Plan: PLAN: Keep townsend catheter XR cysto today --if okay then d/c townsend today Check THERESA cr today. If okay pull THERESA DVT of lower extremity (deep venous thrombosis) 11/17/2010 03/29/2023 Last Assessment & Plan: PLAN: - SubQ heparin ppx Abdominal pain, right upper quadrant 11/04/2010 02/08/2014 documented as of this encounter (statuses as of 01/26/2024) [facility] [place]01-27-2020 History of Past illness Narrative* Problem Noted Date Diagnosed Date Resolved Date Hypophosphatemia 11/12/2019 11/13/2019 Last Assessment & Plan: PLAN: Replete phos>2.5 Hyponatremia 11/09/2019 11/13/2019 Last Assessment & Plan: PLAN: NS IVF Trend na Ileostomy in place 11/09/2019 3 Last Assessment & Plan: Assessment: hx of recurrent diverticulitis with colovesical fistula s/p laparoscopic sigmoid colectomy with colovesical fistula takedown, drainage of intraabdominal abscess, and DLI on 11/08/19 who just underwent a ileostomy closure. PLAN: - Diet advanced to GI soft - Encourage OOB and ambulation x5/day - Has had ROBF - D/C today Colovesical fistula 11/07/2019 11/13/19 20 Last Assessment & Plan: PLAN: Keep townsend catheter XR cysto today --if okay then d/c townsend today Check THERESA cr today. If okay pull THERESA DVT of lower extremity (deep venous thrombosis) 11/17/2010 03/29/2023 Last Assessment & Plan: PLAN: - SubQ heparin ppx Abdominal pain, right upper quadrant 11/04/2010 02/08/2014 documented as of this encounter (statuses as of 01/28/2024) [facility] note* Diagnosis Chronic obstructive pulmonary disease with acute exacerbation (HCC)- Primary Obstructive chronic bronchitis with exacerbation documented in this encounter [facility] note* Diagnosis Type 2 diabetes mellitus without complication, 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 oil heaterman insulin use (HCC) documented in this encounter [facility] noteNo assessment information availableWAshtab[facility] Work Phone: Evaluation note* Diagnosis Hyperlipidemia, unspecified hyperlipidemia type- Primary Controlled type 2 diabetes mellitus without complication, with long-term current use of insulin (HCC) Essential hypertension Unspecified essential hypertension documented in this encounter [facility] note* Diagnosis Type 2 diabetes mellitus without complication, 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 oil heaterman insulin use (HCC) documented in this encounter [facility] note* Diagnosis Type 2 diabetes mellitus without complication, 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 oil heaterman insulin use (HCC)- Primary Essential hypertension Unspecified essential hypertension Hyperlipidemia, unspecified hyperlipidemia type Depression, unspecified depression type FAISAL (generalized anxiety disorder) Generalized anxiety disorder Chronic obstructive pulmonary disease, unspecified COPD type (HCC) Gastroesophageal reflux disease, 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 esophagitis present Obstructive sleep apnea treated with BiPAP Encounter for screening for lung cancer documented in this encounter [facility] note* Diagnosis SOB (shortness of breath)- Primary Shortness of breath COPD with exacerbation (HCC) Obstructive chronic bronchitis with exacerbation documented in this encounter [facility] note* Diagnosis Asthma with COPD with exacerbation (HCC) (HCC)- Primary Chronic obstructive asthma with exacerbation documented in this encounter [facility] note* Diagnosis Chronic obstructive pulmonary disease, unspecified COPD type (HCC) Type 2 diabetes mellitus without complication, 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 oil heaterman insulin use (HCC) [facility] Type 2 diabetes mellitus without complication, 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 usp insulin use (HCC)- Primary Essential hypertension Unspecified essential hypertension Hyperlipidemia, unspecified hyperlipidemia type Chronic obstructive pulmonary disease, unspecified COPD type (HCC) Depression, unspecified depression type FAISAL (generalized anxiety disorder) Generalized anxiety disorder Gastroesophageal reflux disease, 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 esophagitis present History of ileostomy Ileostomy status Obstructive sleep apnea treated with BiPAP Type 2 diabetes mellitus with hyperglycemia, with long-term current use of insulin (HCC) Platelets decreased (HCC) Thrombocytopenia, unspecified [facility] Diagnosis Essential hypertension Unspecified essential hypertension [facility] Diagnosis Left lower quadrant abdominal pain- Primary documented in this encounter [facility] note* Diagnosis Hospital discharge follow-up- Primary Other follow-up examination Type 2 diabetes mellitus without complication, 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 oil heaterman insulin use (HCC) Essential hypertension Unspecified essential hypertension Hyperlipidemia, unspecified hyperlipidemia type Depression, unspecified depression type FAISAL (generalized anxiety disorder) Generalized anxiety disorder Mild intermittent asthma without complication Unspecified asthma Chronic obstructive pulmonary disease, unspecified COPD type (HCC) Gastroesophageal reflux disease, 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 esophagitis present History of ileostomy Ileostomy status Encounter for screening examination for other mental health and behavioral disorders documented in this encounter [facility] note* Diagnosis COPD with exacerbation ([facility])- Primary Obstructive chronic bronchitis with exacerbation Type II or unspecified type diabetes mellitus without mention of complication, not stated as uncontrolled Tobacco abuse Tobacco use disorder Sleep apnea Unspecified sleep apnea MORBID OBESITY Morbid obesity Diverticulitis- Primary Diverticulitis of colon (without mention of hemorrhage) Post-op pain Other acute postoperative pain Colovesical fistula Intestinovesical fistula Depression Depressive disorder, not elsewhere classified Coronary artery disease involving [place] coronary artery of [place] heart Hyponatremia Hyposmolality and/or hyponatremia Hypophosphatemia Disorders of phosphorus metabolism Post-op pain- Primary Other acute postoperative pain Post-op pain Other acute postoperative pain Asthma Unspecified asthma Hyperlipidemia Other and unspecified hyperlipidemia COPD (chronic obstructive pulmonary disease) (HCC) Chronic airway obstruction, not elsewhere classified Obstructive sleep apnea treated with BiPAP GERD (gastroesophageal reflux disease) Esophageal reflux Fatty liver Other chronic nonalcoholic liver disease Essential hypertension Unspecified essential hypertension History of smoking Personal history of tobacco use, presenting hazards to health Nicotine use disorder, F17.2 Tobacco use disorder Type 2 diabetes mellitus without complication, 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 oil heaterman insulin use (HCC) documented in this encounter [facility] note* Diagnosis COPD with exacerbation (HCC)- Primary Obstructive chronic bronchitis with exacerbation Type II or unspecified type diabetes mellitus without mention of complication, not stated as uncontrolled Tobacco abuse Tobacco use disorder Sleep apnea Unspecified sleep apnea MORBID OBESITY Morbid obesity Diverticulitis- Primary Diverticulitis of colon (without mention of hemorrhage) Post-op pain Other acute postoperative pain Colovesical fistula Intestinovesical fistula Morbid obesity with BMI of 45.0-49.9, adult (HCC) Morbid obesity Depression Depressive disorder, not elsewhere classified Coronary artery disease involving white earth coronary artery of white earth heart Hyponatremia Hyposmolality and/or hyponatremia Hypophosphatemia Disorders of phosphorus metabolism Post-op pain- Primary Other acute postoperative pain Post-op pain Other acute postoperative pain Asthma Unspecified asthma Hyperlipidemia Other and unspecified hyperlipidemia COPD (chronic obstructive pulmonary disease) (HCC) Chronic airway obstruction, not elsewhere classified Obstructive sleep apnea treated with BiPAP GERD (gastroesophageal reflux disease) Esophageal reflux Fatty liver Other chronic nonalcoholic liver disease Essential hypertension Unspecified essential hypertension Morbid obesity (HCC) Morbid obesity History of smoking Personal history of tobacco use, presenting hazards to health Nicotine use disorder, F17.2 Tobacco use disorder SOB (shortness of breath) Shortness of breath documented in this encounter [facility] note* Diagnosis COPD with exacerbation (HCC)- Primary Obstructive chronic bronchitis with exacerbation Type II or unspecified type diabetes mellitus without mention of complication, not stated as uncontrolled Tobacco abuse Tobacco use disorder Sleep apnea Unspecified sleep apnea MORBID OBESITY Morbid obesity Diverticulitis- Primary Diverticulitis of colon (without mention of hemorrhage) Post-op pain Other acute postoperative pain Colovesical fistula Intestinovesical fistula Depression Depressive disorder, not elsewhere classified Coronary artery disease involving white earth coronary artery of white earth heart Hyponatremia Hyposmolality and/or hyponatremia Hypophosphatemia Disorders of phosphorus metabolism Post-op pain- Primary Other acute postoperative pain Post-op pain Other acute postoperative pain Asthma Unspecified asthma Hyperlipidemia Other and unspecified hyperlipidemia COPD (chronic obstructive pulmonary disease) (HCC) Chronic airway obstruction, not elsewhere classified Obstructive sleep apnea treated with BiPAP GERD (gastroesophageal reflux disease) Esophageal reflux Fatty liver Other chronic nonalcoholic liver disease Essential hypertension Unspecified essential hypertension History of smoking Personal history of tobacco use, presenting hazards to health Nicotine use disorder, F17.2 Tobacco use disorder Type 2 diabetes mellitus with hyperglycemia, with long-term current use of insulin (HCC)- Primary Depression, unspecified depression type Gastroesophageal reflux disease, 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 esophagitis present Hyperlipidemia, unspecified hyperlipidemia type Chronic obstructive pulmonary disease, unspecified COPD type (HCC) Mild asthma without complication, 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 persistent 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 Obstructive sleep apnea treated with BiPAP Essential hypertension Unspecified essential hypertension documented in this encounter [facility] note* Diagnosis COPD with exacerbation (HCC)- Primary Obstructive chronic bronchitis with exacerbation Type II or unspecified type diabetes mellitus without mention of complication, not stated as uncontrolled Tobacco abuse Tobacco use disorder Sleep apnea Unspecified sleep apnea MORBID OBESITY Morbid obesity Diverticulitis- Primary Diverticulitis of colon (without mention of hemorrhage) Post-op pain Other acute postoperative pain Colovesical fistula Intestinovesical fistula Depression Depressive disorder, not elsewhere classified Coronary artery disease involving white earth coronary artery of white earth heart Hyponatremia Hyposmolality and/or hyponatremia Hypophosphatemia Disorders of phosphorus metabolism Post-op pain- Primary Other acute postoperative pain Post-op pain Other acute postoperative pain Asthma Unspecified asthma Hyperlipidemia Other and unspecified hyperlipidemia COPD (chronic obstructive pulmonary disease) (HCC) Chronic airway obstruction, not elsewhere classified Obstructive sleep apnea treated with BiPAP GERD (gastroesophageal reflux disease) Esophageal reflux Fatty liver Other chronic nonalcoholic liver disease Essential hypertension Unspecified essential hypertension History of smoking Personal history of tobacco use, presenting hazards to health Nicotine use disorder, F17.2 Tobacco use disorder Type 2 diabetes mellitus without complication, 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 usp insulin use ([facility]) documented in this encounter [facility] note* Diagnosis COPD with exacerbation (HCC)- Primary Obstructive chronic bronchitis with exacerbation Type II or unspecified type diabetes mellitus without mention of complication, not stated as uncontrolled Tobacco abuse Tobacco use disorder Sleep apnea Unspecified sleep apnea MORBID OBESITY Morbid obesity Diverticulitis- Primary Diverticulitis of colon (without mention of hemorrhage) Post-op pain Other acute postoperative pain Colovesical fistula Intestinovesical fistula Depression Depressive disorder, not elsewhere classified Coronary artery disease involving white earth coronary artery of white earth heart Hyponatremia Hyposmolality and/or hyponatremia Hypophosphatemia Disorders of phosphorus metabolism Post-op pain- Primary Other acute postoperative pain Post-op pain Other acute postoperative pain Asthma Unspecified asthma Hyperlipidemia Other and unspecified hyperlipidemia COPD (chronic obstructive pulmonary disease) (HCC) Chronic airway obstruction, not elsewhere classified Obstructive sleep apnea treated with BiPAP GERD (gastroesophageal reflux disease) Esophageal reflux Fatty liver Other chronic nonalcoholic liver disease Essential hypertension Unspecified essential hypertension History of smoking Personal history of tobacco use, presenting hazards to health Nicotine use disorder, F17.2 Tobacco use disorder Type 2 diabetes mellitus without complication, 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 oil heaterman insulin use (HCC)- Primary Essential hypertension Unspecified essential hypertension Hyperlipidemia, unspecified hyperlipidemia type Depression, unspecified depression type FAISAL (generalized anxiety disorder) Generalized anxiety disorder Gastroesophageal reflux disease, 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 esophagitis present Mild asthma without complication, 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 persistent Obstructive sleep apnea treated with BiPAP Chronic obstructive pulmonary disease, unspecified COPD type (HCC) History of ileostomy Ileostomy status documented in this encounter [facility] note* Diagnosis COPD with exacerbation (HCC)- Primary Obstructive chronic bronchitis with exacerbation Type II or unspecified type diabetes mellitus without mention of complication, not stated as uncontrolled Tobacco abuse Tobacco use disorder Sleep apnea Unspecified sleep apnea MORBID OBESITY Morbid obesity Diverticulitis- Primary Diverticulitis of colon (without mention of hemorrhage) Post-op pain Other acute postoperative pain Colovesical fistula Intestinovesical fistula Depression Depressive disorder, not elsewhere classified Coronary artery disease involving white earth coronary artery of white earth heart Hyponatremia Hyposmolality and/or hyponatremia Hypophosphatemia Disorders of phosphorus metabolism Post-op pain- Primary Other acute postoperative pain Post-op pain Other acute postoperative pain Asthma (HCC) Unspecified asthma Hyperlipidemia Other and unspecified hyperlipidemia COPD (chronic obstructive pulmonary disease) (HCC) Chronic airway obstruction, not elsewhere classified Obstructive sleep apnea treated with BiPAP GERD (gastroesophageal reflux disease) Esophageal reflux Fatty liver Other chronic nonalcoholic liver disease Essential hypertension Unspecified essential hypertension History of smoking Personal history of tobacco use, presenting hazards to health Nicotine use disorder, F17.2 Tobacco use disorder Type 2 diabetes mellitus with hyperglycemia, with long-term current use of insulin (HCC)- Primary Depression, unspecified depression type Mild asthma without complication, 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 persistent (HCC) Hyperlipidemia, unspecified hyperlipidemia type Obstructive sleep apnea treated with BiPAP Essential hypertension Unspecified essential hypertension documented in this encounter [facility] Discharge instructions Additional Instructions Please continue your albuterol inhaler to help with bronchospasm/shortness of breath. Use the prescribed cough medication to help reduce your cough and follow-up with your family doctor for repeat evaluation. Your workup today shows no sign of heart damage or pneumonia. Please return to the ER should you have any worsening of symptoms or any further concernsW[facility] Work Phone: Reason for referral (narrative)* Outpatient Procedure (Routine) - Authorized Specialty Diagnoses / Procedures Referred By Contac t Referred To Contact [facility] Diagnoses Chronic obstructive pulmonary disease, unspecified COPD type (HCC) Procedures SPIROMETRY - BASELINE AND POST DILATOR BRNCDILAT RSPSE SPMTRY PRE&POST-BRNCDILAT ADMAmerico Hines MD [address] [place] [address] Respiratory [place] [address] [place] [address] Referral ID Status Reason Start Date Expiration Date Visits Requested Visits Authorized [id number] Authorized Auto-Generat ed Referral 02/20/2024 03/21/2025 1 1 [facility] [place] Summary Purpose Family History Relationship Condition Age at Onset Recorded Date/T kevin Unknown Family History?COPD, - Unknown Febru 2016 1:32pm Family History?Cancer Unknown Octobe r 2014 3:47pm Family History?Cancer Unknown ua 2016 1:32pm Family History?Heart Disease Unknown November 18, 2016 1:32pm Relationship Condition Age at Onset Recorded Date/T kevin Unknown Family History?COPD, - Unknown Febru 2016 2:32pm Family History?Cancer Unknown Octobe r 2014 4:47pm Family History?Cancer Unknown Februa 2016 2:32pm Family History?Heart Disease Unknown November 18, 2016 2:32pm Advance Directives Documents on File Type Date Recorded Patient Liner Man Expl anation Advance Directive(s) 09/15/2020 5:06 AM Advance Directive(s) 09/03/2020 2:18 PM Advance Directive(s) 04/29/2020 11:50 AM Advance Directive(s) 04/29/2020 3:25 PM Advance Directive(s) 04/29/2020 3:26 PM Advance Directive(s) 11/08/2019 6:53 AM Documents on File Type Date Recorded Patient Liner Man Expl anation Advance Directive(s) 04/29/2020 3:26 PM Advance Directive Response Recorded Date/ Time Advance Directives No November 18, 2016 1:01pm Living Will No December 06 023 11:32am Power of Select [employer]er No December 06, 2022 11:32am Advance Directive Response Recorded Date/ Time Advance Directives No November 18, 2016 2:01pm Living Will No January 29, 2024 12:08am Power of [employer]er No January 28 12:08am Documents on File Type Date Recorded Patient Liner Man Expl anation Advance Directive(s) 04/29/2020 3:26 PM Procedure Findings Note HNO ID: [id number] Author: Sunny Bingham Service: ? Author Type: Nurse Meter Maker Type: Anesthesia Procedure Notes Filed: 09/03/2020 4:34 PM Note Text: ANESTHESIOLOGY PROCEDURE NOTE Airway General Information Procedure Start Time/Medication Administration: 09/03/2020 4:29 PM Patient location during procedure: OR Timeout Performed Pre-procedure: timeout performed Consent Obtained: Yes Patient identity confirmed: arm band Staffing GSE MECHANIC: Lloyd Bingham Performed by: ALVARO Indications and Patient Condition Preoxygenated: yes Patient position: sniffing Manual In-Line Stabilization: No Difficult Mask: No Indications for airway management: anesthesia anesthesia circuit Method: asleep Cricoid Pressure: No Final Airway Details Final airway type: supraglottic airway Number of attempts at approach: 1 Final Supraglottic Airway: IGEL Size 5 Seal Adequate: yes Failed airway: no Unrecognized esophageal intubation: no Airway not difficult SIGNATURE: Lloyd Bingham APRN.ALVARO PATIENT NAME: (more content not included)... Chief Complaint and Reason for Visit Chief Complaint n/v/d Chief Complaint sob Reason for Referral Specialty Diagnoses / Procedures Referred By Contsusana t Referred To Contact Ophthalmology Diagnoses Type 2 diabetes mellitus without complication, 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 usp insulin use (HCC) Procedures CONSULT TO OPHTHALMOLOGY OFFICE/OUTPATIENT [facility] 60 MINUTES Americo Borrego MD [address] [place] [address] Referral ID Status Reason Start Date Expiration Date Visits Requested Visits Authorized [id number] Authorized PCP Requested Referral 05/22/2024 05/22/2025 1 1 Additional Source Comments (unrecognized sect ion and content) No Status Records FoundNo Status Records FoundNo Status Records FoundNo Status Records Found INFORMATION SOURCE (unrecogn ized section and content) DATE CREATED AUTHOR 09/04/2020 [facility] ([place]) DATE CREATED AUTHOR AUTHOR'S ORGANIZ ATION 09/09/2020 [facility] DATE CREATED AUTHOR AUTHOR'S ORGANIZ ATION 06/03/2024 [facility] DATE CREATED AUTHOR AUTHOR'S ORGANIZ ATION 04/13/2025 [facility] Source Comments (unrecognize d section and content) In the event this informatio n is protected by the Federal Confidentiality of Alcohol and Drug Abuse Patient Records regulations: The Federal rules restrict any use of the information to criminally investigate or prosecute any alcohol or drug abuse patient.[facility] [place] the event this information is protected by the Federal Confidentiality of Alcohol and Drug Abuse Patient Records regulations: The Federal rules restrict any use of the information to criminally investigate or prosecute any alcohol or drug abuse patient.[facility] [place]In the event this information is protected by the Federal Confidentiality of Alcohol and Drug Abuse Patient Records regulations: The Federal rules restrict any use of the information to criminally investigate or prosecute any alcohol or drug abuse patient.[facility] [place]In the event this information is protected by the Federal Confidentiality of Alcohol and Drug Abuse Patient Records regulations: The Federal rules restrict any use of the information to criminally investigate or prosecute any alcohol or drug abuse patient.[facility] [place]In the event this information is protected by the Federal Confidentiality of Alcohol and Drug Abuse Patient Records regulations: The Federal rules restrict any use of the information to criminally investigate or prosecute any alcohol or drug abuse patient.[facility] [place]In the event this information is protected by the Federal Confidentiality of Alcohol and Drug Abuse Patient Records regulations: The Federal rules restrict any use of the information to criminally investigate or prosecute any alcohol or drug abuse patient.[facility] [place]In the event this information is protected by the Federal Confidentiality of Alcohol and Drug Abuse Patient Records regulations: The Federal rules restrict any use of the information to criminally investigate or prosecute any alcohol or drug abuse patient.[facility] [place]In the event this information is protected by the Federal Confidentiality of Alcohol and Drug Abuse Patient Records regulations: The Federal rules restrict any use of the information to criminally investigate or prosecute any alcohol or drug abuse patient.[facility] [place]In the event this information is protected by the Federal Confidentiality of Alcohol and Drug Abuse Patient Records regulations: The Federal rules restrict any use of the information to criminally investigate or prosecute any alcohol or drug abuse patient.[facility] [place]In the event this information is protected by the Federal Confidentiality of Alcohol and Drug Abuse Patient Records regulations: The Federal rules restrict any use of the information to criminally investigate or prosecute any alcohol or drug abuse patient.[facility] [place]In the event this information is protected by the Federal Confidentiality of Alcohol and Drug Abuse Patient Records regulations: The Federal rules restrict any use of the information to criminally investigate or prosecute any alcohol or drug abuse patient.[facility] [place]In the event this information is protected by the Federal Confidentiality of Alcohol and Drug Abuse Patient Records regulations: The Federal rules restrict any use of the information to criminally investigate or prosecute any alcohol or drug abuse patient.[facility] [place]woodIn the event this information is protected by the Federal Confidentiality of Alcohol and Drug Abuse Patient Records regulations: The Federal rules restrict any use of the information to criminally investigate or prosecute any alcohol or drug abuse patient.[facility] [place]In the event this information is protected by the Federal Confidentiality of Alcohol and Drug Abuse Patient Records regulations: The Federal rules restrict any use of the information to criminally investigate or prosecute any alcohol or drug abuse patient.[facility] [place]In the event this information is protected by the Federal Confidentiality of Alcohol and Drug Abuse Patient Records regulations: The Federal rules restrict any use of the information to criminally investigate or prosecute any alcohol or drug abuse patient.[facility] [place]In the event this information is protected by the Federal Confidentiality of Alcohol and Drug Abuse Patient Records regulations: The Federal rules restrict any use of the information to criminally investigate or prosecute any alcohol or drug abuse patient.[facility] [place]In the event this information is protected by the Federal Confidentiality of Alcohol and Drug Abuse Patient Records regulations: The Federal rules restrict any use of the information to criminally investigate or prosecute any alcohol or drug abuse patient.[facility] [place]In the event this information is protected by the Federal Confidentiality of Alcohol and Drug Abuse Patient Records regulations: The Federal rules restrict any use of the information to criminally investigate or prosecute any alcohol or drug abuse patient.[facility] [place]In the event this information is protected by the Federal Confidentiality of Alcohol and Drug Abuse Patient Records regulations: The Federal rules restrict any use of the information to criminally investigate or prosecute any alcohol or drug abuse patient.[facility] [place]woodIn the event this information is protected by the Federal Confidentiality of Alcohol and Drug Abuse Patient Records regulations: The Federal rules restrict any use of the information to criminally investigate or prosecute any alcohol or drug abuse patient.[facility] [place]woodIn the event this information is protected by the Federal Confidentiality of Alcohol and Drug Abuse Patient Records regulations: The Federal rules restrict any use of the information to criminally investigate or prosecute any alcohol or drug abuse patient.[facility] [place]In the event this information is protected by the Federal Confidentiality of Alcohol and Drug Abuse Patient Records regulations: The Federal rules restrict any use of the information to criminally investigate or prosecute any alcohol or drug abuse patient.[facility] [place]In the event this information is protected by the Federal Confidentiality of Alcohol and Drug Abuse Patient Records regulations: The Federal rules restrict any use of the information to criminally investigate or prosecute any alcohol or drug abuse patient.[facility] [place]In the event this information is protected by the Federal Confidentiality of Alcohol and Drug Abuse Patient Records regulations: The Federal rules restrict any use of the information to criminally investigate or prosecute any alcohol or drug abuse patient.[facility] [place]In the event this information is protected by the Federal Confidentiality of Alcohol and Drug Abuse Patient Records regulations: The Federal rules restrict any use of the information to criminally investigate or prosecute any alcohol or drug abuse patient.[facility] [place]In the event this information is protected by the Federal Confidentiality of Alcohol and Drug Abuse Patient Records regulations: The Federal rules restrict any use of the information to criminally investigate or prosecute any alcohol or drug abuse patient.[facility] [place]In the event this information is protected by the Federal Confidentiality of Alcohol and Drug Abuse Patient Records regulations: The Federal rules restrict any use of the information to criminally investigate or prosecute any alcohol or drug abuse patient.[facility] [place]In the event this information is protected by the Federal Confidentiality of Alcohol and Drug Abuse Patient Records regulations: The Federal rules restrict any use of the information to criminally investigate or prosecute any alcohol or drug abuse patient.[facility] [place]In the event this information is protected by the Federal Confidentiality of Alcohol and Drug Abuse Patient Records regulations: The Federal rules restrict any use of the information to criminally investigate or prosecute any alcohol or drug abuse patient.[facility] [place]In the event this information is protected by the Federal Confidentiality of Alcohol and Drug Abuse Patient Records regulations: The Federal rules restrict any use of the information to criminally investigate or prosecute any alcohol or drug abuse patient.[facility] [place]In the event this information is protected by the Federal Confidentiality of Alcohol and Drug Abuse Patient Records regulations: The Federal rules restrict any use of the information to criminally investigate or prosecute any alcohol or drug abuse patient.[facility] [place]woodIn the event this information is protected by the Federal Confidentiality of Alcohol and Drug Abuse Patient Records regulations: The Federal rules restrict any use of the information to criminally investigate or prosecute any alcohol or drug abuse patient.[facility] [place] the event this information is protected by the Federal Confidentiality of Alcohol and Drug Abuse Patient Records regulations: The Federal rules restrict any use of the information to criminally investigate or prosecute any alcohol or drug abuse patient.[facility] [place] the event this information is protected by the Federal Confidentiality of Alcohol and Drug Abuse Patient Records regulations: The Federal rules restrict any use of the information to criminally investigate or prosecute any alcohol or drug abuse patient.[facility] [place] the event this information is protected by the Federal Confidentiality of Alcohol and Drug Abuse Patient Records regulations: The Federal rules restrict any use of the information to criminally investigate or prosecute any alcohol or drug abuse patient.[facility] [place] the event this information is protected by the Federal Confidentiality of Alcohol and Drug Abuse Patient Records regulations: The Federal rules restrict any use of the information to criminally investigate or prosecute any alcohol or drug abuse patient.[facility] [place] the event this information is protected by the Federal Confidentiality of Alcohol and Drug Abuse Patient Records regulations: The Federal rules restrict any use of the information to criminally investigate or prosecute any alcohol or drug abuse patient.[facility] [place] the event this information is protected by the Federal Confidentiality of Alcohol and Drug Abuse Patient Records regulations: The Federal rules restrict any use of the information to criminally investigate or prosecute any alcohol or drug abuse patient.[facility] [place] Reason for Visit (unrecogniz ed section and content) Reason Comments Question Reason Comments URI Reason Comments Patient Update Please fill his inha ler as soon as possible, Patient Question Reason Comments Rx refill; not on current med list Reason Onset Date Comments Refill Request 07/04/2022 Reason Comments Insurance Authorization [employer] Reason Onset Date Comments Refill Request 07/09/2022 Refill Request 10/12/2022 Reason Comments Refill Request Reason Onset Date Comments Refill Request 12/25/2022 Reason Onset Date Comments Refill Request 04/25/2023 Reason Comments Medication Problem Reason Onset Date Comments Refill Request 06/24/2023 Reason Comments Follow Up 3 month follow up Reason Comments chest cold Reason Onset Date Comments Refill Request 08/24/2023 Reason Comments Shortness of Breath Cough, chest congest ion x 1 month Reason Comments Excuse from Jury Duty- Letter Reason Comments Shortness of Breath Sob from COPD x 4 da ys Reason Onset Date Comments Refill Request 11/30/2023 Reason Onset Date Comments Refill Request 11/26/2023 Reason Comments F/U 6 Month Reason Comments NEW [facility] APPT Reason Comments Appointment Reason Onset Date Comments Refill Request 03/23/2024 Reason Comments Diarrhea Stomach issues, pain left bottom part of rib, pt states that it feels numb sometimes, [place], chills x 1 week Reason Comments F/U 3 Month Reason Onset Date Comments Refill Request 06/06/2024 Reason Onset Date Comments Population Health Navigation Outreach 08/22/2024 [facility] [place] [facility]SA Reason Comments F/U 3 Month Reason Onset Date Comments ACM SILVANO RN 09/12/2024 Medication Ad herence Review at request of payer Reason Onset Date Comments Refill Request 09/28/2024 Reason Comments Medication Problem Med Refills Reason Onset Date Comments Refill Request 06/13/2025 Care Teams (unrecognized sec tion and content) Tight Barrel Inspector Relationship Specialty Start Date End Date Americo Borrego MD [address] [place] [address] PCP - General Family Practice 05/07/15 Americo Borrego MD [address] [facility] [place] [address] Family Practice 05/07/15 Tight Barrel Inspector Relationship Specialty Start Date End Date Americo Borrego MD [address] [facility] [place] [address] PCP - General Family Practice 05/07/15 Americo Borrego MD [address] [facility] [place] [place] [address] Family Practice 05/07/15 Tight Barrel Inspector Relationship Specialty Start Date End Date Americo Borrego MD [address] [facility] [place] [address] PCP - General Family Practice 05/07/15 Americo Borrego MD [address] [facility] [place] [place] [address] Family Practice 05/07/15 Tight Barrel Inspector Relationship Specialty Start Date End Date Americo Borrego MD [address] [facility] [place] [place] [address] PCP - General Family Medicine 05/07/15 Americo Borrego MD [address] [facility] [place] [address] Family Medicine 05/07/15 Tight Barrel Inspector Relationship Specialty Start Date End Date Americo Borrego MD [address] [facility] [place] [place] [address] PCP - General Family Medicine 05/07/15 Americo Borrego MD [address] [facility] [place] [place] [address] Family Medicine 05/07/15 Tight Barrel Inspector Relationship Specialty Start Date End Date Americo Borrego MD [address] [facility] [place] [place] [address] PCP - General Family Medicine 05/07/15 Americo Borrego MD [address] [facility] [place] [place] [address] Family Medicine 05/07/15 Team Status: Active Member Role Status Dates Dr. Americo Borrego MD Family Provider Active Dr. Americo Borrego MD Primary Care Provider Active Team Status: Inactive Member Role Status Dates Dr. Americo Borrego MD Primary Care Provider Active Dr. Sameer Whiteside MD Emergency Provider Active Tight Barrel Inspector Relationship Specialty Start Date End Date Americo Borrego MD [address] [facility] [place] [address] PCP - General Family Medicine 05/07/15 Americo Borrego MD [address] [facility] [place] [place] [address] Family Medicine 05/07/15 Tight Barrel Inspector Relationship Specialty Start Date End Date Americo Borrego MD [address] [facility] [place] [address] PCP - General Family Medicine 05/07/15 Americo Borrego MD [address] [facility] [place] [address] Family Medicine 05/07/15 Tight Barrel Inspector Relationship Specialty Start Date End Date Americo Borrego MD [address] [facility] [place] [address] PCP - General Family Medicine 05/07/15 Americo Borrego MD [address] [facility] [place] [address] Family Medicine 05/07/15 Tight Barrel Inspector Relationship Specialty Start Date End Date Americo Borrego MD [address] [place] [address] PCP - General Family Medicine 05/07/15 Americo Borrego MD [address] [place] [address] Family Medicine 05/07/15 Tight Barrel Inspector Relationship Specialty Start Date End Date Americo Borrego MD [address] [place] [address] PCP - General Family Medicine 05/07/15 Americo Borrego MD [address] [place] [address] Family Medicine 05/07/15 Tight Barrel Inspector Relationship Specialty Start Date End Date Americo Borrego MD [address] [place] [address] PCP - General Family Medicine 05/07/15 Americo Borrego MD [address] [place] [address] Family Medicine 05/07/15 Tight Barrel Inspector Relationship Specialty Start Date End Date Americo Borrego MD [address] [place] [address] PCP - General Family Medicine 05/07/15 Americo Borrego MD [address] [place] [address] Family Medicine 05/07/15 Tight Barrel Inspector Relationship Specialty Start Date End Date Americo Borrego MD [address] [facility] [place] [address] PCP - General Family Medicine 05/07/15 Americo Borrego MD [address] [facility] [place] [place] [address] Family Medicine 05/07/15 Tight Barrel Inspector Relationship Specialty Start Date End Date Americo Borrego MD [address] [place] [address] PCP - General Family Medicine 05/07/15 Americo Borrego MD [address] [place] [address] Family Medicine 05/07/15 Tight Barrel Inspector Relationship Specialty Start Date End Date Americo Borrego MD [address] [place] [address] PCP - General Family Medicine 05/07/15 Americo Borrego MD [address] [place] [address] Family Medicine 05/07/15 Tight Barrel Inspector Relationship Specialty Start Date End Date Americo Borrego MD [address] [place] [address] PCP - General Family Medicine 05/07/15 Americo Borrego MD [address] [place] [address] Family Medicine 05/07/15 Team Status: Inactive Member Role Status Dates Dr. Americo Borrego MD Primary Care Provider Active Dr. Bruce Dong DO Emergency Provider Active Tight Barrel Inspector Relationship Specialty Start Date End Date Americo Borrego MD [address] [facility] [place] [address] PCP - General Family Medicine 05/07/15 Americo Borrego MD [address] [place] [address] Family Medicine 05/07/15 Tight Barrel Inspector Relationship Specialty Start Date End Date Americo Borrego MD [address] [place] [address] PCP - General Family Medicine 05/07/15 Americo Borrego MD [address] [place] [address] Family Medicine 05/07/15 Tight Barrel Inspector Relationship Specialty Start Date End Date Americo Borrego MD [address] [place] [address] PCP - General Family Medicine 05/07/15 Americo Borrego MD [address] [place] [address] Family Medicine 05/07/15 Tight Barrel Inspector Relationship Specialty Start Date End Date Americo Borrego MD [address] [place] [address] PCP - General Family Medicine 05/07/15 Americo Borrego MD [address] [facility] [place] [address] Family Medicine 05/07/15 Tight Barrel Inspector Relationship Specialty Start Date End Date Americo Borrego MD [address] [place] [address] PCP - General Family Medicine 05/07/15 Americo Borrego MD [address] [facility] [place] [address] Family Medicine 05/07/15 Tight Barrel Inspector Relationship Specialty Start Date End Date Americo Borrego MD [address] [facility] [place] [place] [address] PCP - General Family Medicine 05/07/15 Americo Borrego MD [address] [facility] [place] [place] [address] Family Medicine 05/07/15 Tight Barrel Inspector Relationship Specialty Start Date End Date Americo Borrego MD [address] [facility] [place] [place] [address] PCP - General Family Medicine 05/07/15 Americo Borrego MD [address] [facility] [place] [place] [address] Family Medicine 05/07/15 Tight Barrel Inspector Relationship Specialty Start Date End Date Americo Borrego MD [address] [facility] [place] [address] PCP - General Family Medicine 05/07/15 Americo Borrego MD [address] [facility] [place] [place] [address] Family Medicine 05/07/15 Tight Barrel Inspector Relationship Specialty Start Date End Date Americo Borrego MD [address] [facility] [place] [place] [address] PCP - General Family Medicine 05/07/15 Americo Borrego MD [address] [facility] [place] [address] Family Medicine 05/07/15 Tight Barrel Inspector Relationship Specialty Start Date End Date Americo Borrego MD [address] [facility] [place] [place] [address] PCP - General Family Medicine 05/07/15 Americo Borrego MD [address] [facility] [place] [place] [address] Family Medicine 05/07/15 Tight Barrel Inspector Relationship Specialty Start Date End Date Americo Borrego MD [address] [facility] [place] [place] [address] PCP - General Family Medicine 05/07/15 Americo Borrego MD [address] [facility] [place] [place] [address] Family Medicine 05/07/15 Malika Sethi APRN.CONTOUR PATH TAPE MILL OPERATOR [address] [facility] [place] [place] [address] Field Marketing Team Leader Family Medicine 09/23/24 Tight Barrel Inspector Relationship Specialty Start Date End Date Americo Borrego MD [address] [facility] [place] [place] [address] PCP - General Family Medicine 05/07/15 Americo Borrego MD [address] [facility] [place] [address] Family Medicine 05/07/15 Malika Sethi APRN.CONTOUR PATH TAPE MILL OPERATOR [address] [facility] [place] [place] [address] Field Marketing Team Leader Family Medicine 09/23/24 Dean Goldberg APRN.CONTOUR PATH TAPE MILL OPERATOR [address] [place] [address] Field Marketing Team Leader Family Medicine 10/02/24 Tight Barrel Inspector Relationship Specialty Start Date End Date Americo Borrego MD [address] [place] [address] PCP - General Family Medicine 05/07/15 Americo Borrego MD [address] [place] [address] Family Medicine 05/07/15 Malika Sethi APRN.CONTOUR PATH TAPE MILL OPERATOR [address] [place] [address] Field Marketing Team Leader Family Medicine 09/23/24 Dean Goldberg VETERINARY ASSISTANT.CONTOUR PATH TAPE MILL OPERATOR [address] [place] [address] Field Marketing Team Leader Family Medicine 10/02/24 Tight Barrel Inspector Relationship Specialty Start Date End Date Americo Borrego MD [address] [place] [address] PCP - General Family Medicine 05/07/15 Americo Borrego MD [address] [place] [address] Family Medicine 05/07/15 Dean Goldberg APRN.CONTOUR PATH TAPE MILL OPERATOR [address] [place] [address] Field Marketing Team Leader Family Medicine 10/02/24 Tight Barrel Inspector Relationship Specialty Start Date End Date Americo Borrego MD [address] [place], [place] [address] PCP - General Family Medicine 05/07/15 Americo Borrego MD [address] [place], [place] [address] Family Medicine 05/07/15 Dean Goldberg APRN.[facility] [address] [place], [place] [id number] Field Marketing Team Leader Family Medicine 10/02/24 Goals (unrecognized section and content) Goals may be documented in a n alternate sectionGoals may be documented in an alternate section FOR RECORDS PERTAINING TO PATIENTS WHO ARE OR HAVE BEEN ENROLLED IN A CHEMICAL DEPENDENCY/SUBSTANCEABUSE PROGRAM, SOME INFORMATION MAY BE OMITTED. This clinical summary was aggregated from multiple sources. Caution should be exercised in using it in the provision of clinical care. This summary normalizes information from multiple sources, and as a consequence, information in this document may materially change the coding, format and clinical context of patient data. In addition, data may be omitted in some cases. CLINICAL DECISIONS SHOULD BE BASED ON THE PRIMARY CLINICAL RECORDS. [employer] provides no warranty or guarantee of the accuracy or completeness of information in this document.
[2025-07-06] MEDS: Albuterol 2.5 MG/3 ML VIAL.NEB. INHALATION ×2 (17:28)
== END 2025-07-06 18:29 | disposition home or self-care (01) ==
PROVIDERS: Emergency Provider Emergency Medicine; PCP Family Medicine; Visit Provider Emergency Medicine
DX: J44.1 Chronic obstructive pulmonary disease with (acute) exacerbation (principal); E11.9 Type 2 diabetes mellitus without complications; Z79.4 Long term (current) use of insulin; I10 Essential (primary) hypertension; I25.10 Atherosclerotic heart disease of native coronary artery without angina pectoris; Z87.891 Personal history of nicotine dependence; B34.9 Viral infection, unspecified; R09.81 Nasal congestion; Z86.718 Personal history of other venous thrombosis and embolism; R10.9 Unspecified abdominal pain; R05.9 Cough, unspecified; K21.9 Gastro-esophageal reflux disease without esophagitis; Z99.89 Dependence on other enabling machines and devices; G47.33 Obstructive sleep apnea (adult) (pediatric); Z91.199 Patient's noncompliance with other medical treatment and regimen due to unspecified reason
CPT/HCPCS: 71046; 93005; 94640; 99284

== ENCOUNTER 2025-08-18 21:32 | Emergency (ER) | payer MEDICARE, SELFPAY ==
[2025-08-18 21:34] VITALS: BP 155/95; PULSE 93; RESP 30; TEMP 36.1; O2SAT 100; BMI 41.5
--- NOTE | 2025-08-18 21:40 | RAD_ITS ---
PROCEDURE: RAD/Chest PA and Lateral
[2025-08-18] MEDS: Albuterol 2.5 MG/3 ML VIAL.NEB. INHALATION ×3 (21:57)
[2025-08-18 22:00] VITALS: PULSE 89; RESP 18
[2025-08-18 22:09] LABS: Hematocrit 47.3 % (40-54); Hemoglobin 16.3 g/dL (13.0-16.5); Immature Granulocytes Count 0.030 X10^3/uL (0.0-0.0); Mean Corp Hgb Conc 34.5 g/dL (32-36); Mean Corpuscular Volume 82.3 fL (80-94); Mean Platelet Vol. 10.9 fl (6.2-12.0); NRBC Flagged by Analyzer 0 % (0-5); Platelet Count 120 K/mm3 (150-450); RBC Distribution Width CV 12.5 % (11.6-14.6); RBC Distribution Width SD 37.4 fl (35.1-43.9); Red Blood Count 5.75 M/mm3 (4.6-6.2); White Blood Count 7.5 K/mm3 (4.4-11.0)
[2025-08-18 22:30] LABS: AST(SGOT) 28 U/L (<=37); Alanine Aminotransfer ALT/SGPT 31 U/L (<=46); Albumin, Serum 4.2 g/dL (3.5-5.0); Alkaline Phosphatase 93 U/L (40-129); Anion Gap 14 (5-15); BUN 23 mg/dL (4-19); BUN/Creat Ratio 32.7 RATIO (10-20); Calcium,Total 9.5 mg/dL (7.6-11.0); Carbon Dioxide 19.8 mmol/L (21.0-32.0); Chloride 104 mmol/L (98-108); Estimated Creatinine Clearance 154.00 ml/min (50-250); Globulin 2.9 g/dL (2.2-4.2); Glucose 216 mg/dL (70-99); Potassium 3.9 mmol/L (3.3-5.1)
--- NOTE | 2025-08-18 22:53 | ED.VIS.DYS ---
HPI History of Present Illness Chief Complaint: Shortness of Breath Detail of Chief Complaint: Shortness of breath, wheezing, productive cough history of COPD Informant: patient Onset/Context/Timing Onset: Weeks (Onset approximately 2 weeks ago) Context: sudden Timing: Continuous and Waxes and wanes Quality: Positive for Dyspnea on exertion and Wheezing; Negative for Orthopnea or PND Current Severity: Moderate Maximum Severity: Severe Worsened by: Exertion and Coughing Relieved by: Nothing Associated Symptoms cough, post nasal drip, yellow sputum and green sputum; Negative for rhinorrhea, ear pain, fever, sore throat, subjective, chills, sweats, clear sputum or white sputum Chest Pain: Positive for None Narrative Narrative: Patient is a 55-year-old male. He presents with shortness of breath, wheezing, productive cough of yellow to green sputum. He has not smoked since 2019. He was seen July 06 for viral upper respiratory infection. He was seen also April 2024 for unspecified abdominal pain. He was seen December 2023 for COPD exacerbation. He denies fever, chills night sweats. He reports mild postnasal drainage. He denies headache, visual, ocular auditory symptoms. He denies chest pressure, tightness or heaviness. He denies pain with breathing. He has no history of VTE. He has no risk factors for VTE. He denies leg pain or discoloration. Patient denies abdominal pain, nausea, vomiting or diarrhea. Patient states the last 5 days had a productive cough of yellow to green sputum. He has been wheezing even at rest. He is been using his inhaler with little improvement. He has been on steroids recently. PE Risk Factors: Negative for Cancer, OCP + Smoking + > 35, Prior DVT or PE, Recent immobilization, Recent surgery or Recent travel Prior similar symptoms: Yes Recent Illness/Hospitalization: No PFSH [facility] Medical History Diverticulitis Femur fracture Rib fracture H. pylori infection Cholecystitis Fatty liver Depression BPH (benign prostatic hyperplasia) DVT (deep venous thrombosis) GERD (gastroesophageal reflux disease) Diverticula of colon HTN (hypertension) COPD (chronic obstructive pulmonary disease) Diabetes mellitus Home Medications ?Medication ?Instructions ?Recorded ?Last Taken ?Type albuterol sulfate 2.5 mg/3 mL 2.5 mg inhalation Q6H PRN PRN Sob 01/03/16 11/18/16 04:00 History (0.083 %) solution for nebulization &/Or Wheezing atorvastatin 40 mg tablet 40 mg PO QHS 01/03/16 08/05/19 History citalopram 20 mg tablet 30 mg PO DAILY 01/03/16 08/06/19 History glimepiride 2 mg tablet 2 mg PO DAILY 01/03/16 08/06/19 History lisinopril 10 mg tablet 10 mg PO DAILY 01/03/16 08/06/19 History fluticasone furoate 100 1 ea IH DAILY ##1 05/25/16 08/06/19 Rx mcg-vilanterol 25 mcg/dose inhalation powder (Breo Ellipta) albuterol sulfate 90 mcg/actuation 2 puff inhalation Q2H PRN PRN 11/20/16 08/06/19 Rx aerosol inhaler (Ventolin HFA) COUGH/WHEEZE ##0 insulin detemir U-100 100 unit/mL 50 units subcut QHS 08/06/19 08/05/19 History (3 mL) subcutaneous pen omeprazole 40 mg capsule,delayed 40 mg PO BID 08/06/19 08/06/19 History release ibuprofen 800 mg tablet 800 mg PO Q8H PRN Pain 1-10 Or 09/11/20 Unknown History Fever loperamide 2 mg capsule (Imodium 2 mg PO Q4H PRN loose stool #10 12/06/22 Unknown Rx A-D) caps empagliflozin 25 mg tablet 25 mg PO DAILY 05/14/24 Unknown History (Jardiance) insulin lispro 100 unit/mL 30 unit subcut QPM 05/14/24 Unknown History subcutaneous pen ondansetron 4 mg disintegrating 4 mg PO Q8H PRN PRN Nausea #14 tabs 05/14/24 Unknown Rx tablet azithromycin 250 mg tablet See Rx Instructions PO .COMPLEX #6 07/06/25 Unknown Rx tabs prednisone 20 mg tablet 40 mg (2 x 20 mg) PO DAILY #8 tabs 07/06/25 Unknown Rx doxycycline monohydrate 100 mg 100 mg PO BID #10 CAPSULES 08/18/25 Unknown Rx capsule prednisone 20 mg tablet 60 mg (3 x 20 mg) PO DAILY #12 08/18/25 Unknown Rx TABLETS Allergy/AdvReac Type Severity Reaction Status Date / Time No Known Allergies Allergy Verified 08/18/25 21:34 Social History household members: none Smoking Status: Former smoker substance use type: does not use ROS ROS ED Constitutional Constitutional ED: Denies chills, fever(s), sweats or weight loss Eyes Eyes: Denies blurry vision or change in vision ENT ENT ED: Reports other Details: Detailed HPI narrative ; Denies ear pain, rhinorrhea or sore throat Cardiovascular Cardiovascular: Denies chest pain, orthopnea, palpitations or paroxysmal nocturnal dyspnea Respiratory/Chest Respiratory/Chest: Reports cough, dyspnea, dyspnea on exertion and sputum; Denies orthopnea or paroxysmal nocturnal dyspnea Gastrointestinal Gastrointestinal: Denies abdominal pain, diarrhea, nausea or vomiting Genitourinary Genitourinary ED: Denies dysuria, hematuria or urinary frequency Musculoskeletal Musculoskeletal: Denies arthralgias or myalgias Integumentary Denies rash Neurologic Neurologic: Denies headache(s) or weakness Hematologic/Lymphatic Hematologic/Lymphatic: Denies easy bleeding or easy bruising EXAM Physical Exam Const Vital Signs: 08/18/25 21:34 08/18/25 22:00 08/18/25 22:04 Temperature 97 F L Temperature Source Temporal Pulse Rate 93 89 Respiratory Rate 30 H 18 Respiratory Effort Normal Respiratory Depth Normal Respiratory Pattern Normal Normal Blood Pressure 155/95 H Blood Pressure Mean 115 Pulse Ox 100 Oxygen Delivery Method Room Air Room Air Positive well nourished and well developed Constitutional Narrative: Blood pressure is elevated. He is tachypneic breathing 30 times a minute with audible wheezing. General Appearance ED: well developed; Negative for pallor HEENT Reports moist mucous membranes HEENT Narrative: Poor dentition. Posterior pharynx is normal. Ears normal. Nares patent Eyes PERRL and EOMs intact bilaterally General Eye ED: Negative for pale conjunctiva or scleral icterus Neck no lymphadenopathy, no meningeal signs and no JVD Neck Narrative: Trachea is midline. There is no stridor Resp No normal respiratory effort and No clear to auscultation bilaterally Resp Narrative: Patient with increased expiratory phase and decreased air movement. Auscultation: wheezes expiratory wheezes and throughout Cardio regular rate, regular rhythm, S1 normal heart sound, S2 normal heart sound and no murmurs GI non-tender, non-distended and no masses Palpation: soft Back/Spine no CVA tenderness Extremity normal to inspection General Extremety ED: Negative for edema or tenderness General Extremity: Negative for edema Neuro oriented x3, CN's II-XII intact bilaterally and no sensory deficits noted Kaleb Coma Scale: document GCS findings Spontaneous Obeys Commands Oriented 15 Sensorium / Orientation: alert Psych mental status grossly normal Skin no wounds and skin turgor normal General Skin Exam: Negative for jaundice or pallor Rashes: no rashes MDM MDM MDM Narrative Medical decision making narrative: Differential diagnoses gastritis COPD, pneumonia, exacerbation chronic bronchitis, history and physical not consistent with cardiac disease or congestive heart failure. History is not consistent with pulmonary embolus either. Lab Data Attestation: I reviewed the patient's lab results. Lab results narrative: CBC is normal. H&H is normal. Competence metabolic panel with slight decrease in CO2 of 19.8. Anion gap is normal. Glucose is elevated 213. BUN to creatinine ratio is elevated 32-1. Labs: Laboratory Results - last 24 hr 08/18/25 22:02 WBC 7.5 RBC 5.75 Hgb 16.3 Hct 47.3 MCV 82.3 MCH 28.3 MCHC 34.5 RDW Std Deviation 37.4 RDW Coeff of Nai 12.5 Plt Count 120 L MPV 10.9 Immature Gran % (Auto) 0.400 Neut % (Auto) 47.8 Lymph % (Auto) 39.5 Craven % (Auto) 6.0 Eos % (Auto) 5.5 H Baso % (Auto) 0.8 Absolute Neuts (auto) 3.6 Absolute Lymphs (auto) 2.94 Nucleated RBC % 0 Sodium 138 Potassium 3.9 Chloride 104 Carbon Dioxide 19.8 L Anion Gap 14 BUN 23 H Creatinine 0.70 Estim Creat Clear Calc 154.00 Est GFR (MDRD) Non-Af 108 BUN/Creatinine Ratio 32.7 H Glucose 216 H Calcium 9.5 Total Bilirubin 0.50 AST 28 ALT 31 Alkaline Phosphatase 93 Total Protein 7.0 Albumin 4.2 Globulin 2.9 Albumin/Globulin Ratio 1.5 Radiography Chest X-Ray - ED: 2 View and Read by ED Physician (Cardiac silhouette and size normal. Lung parenchyma reveals chronic changes. Hilum is not widened nor is there any significant lymphadenopathy. Osseous structures reveal chronic degenerative changes.) Differential Diagnosis Chest pain/SOB: pulmonary embolism Reason(s) PE less likely: Positive for Well's <3, not tachycardic, not hypoxic and Other (History consistent with respiratory infection), pneumothorax Reason(s) pneumothorax less likely: Positive for bilateral breath sounds and SCREEN ROLLER withhout PTX, pneumonia Reason(s) pneumonia less likely: Positive for no infiltrate on CXR, no elevation in WBC count and no noted fever, aortic dissection Reason(s) Aortic dissection less likely:: Positive for normal vascular exam, no history of HTN, normal neurological exam, no significant risk factors for dissection, no widened mediastinum on CXR, pain not sudden onset, no ripping/tearing pain, no pain to back and blood pressure appropriate in ED and CHF Reason(s) CHF less likely: Positive for no significant peripheral edema, no orthopnea, no evidence of fluid overload on CXR and BtNP not significantly elevated over normal/baseline Treatment and Re-Evaluation :: Patient was informed of results and reassessed at 2254 he is a wheeze free with normal respiration. With forced expiration he still has slight wheezing. Plan is doxycycline 100 mg twice daily for 5 days and burst of steroids. Discharge Plan Triage Chief Complaint: Shortness of Breath ED Provider: Sameer Whiteside Dx/Rx/DC Orders Clinical Impression: Acute exacerbation of chronic obstructive pulmonary disease, Chronic bronchitis with productive mucopurulent cough, Acute bronchospasm, Tachypnea, Type 2 diabetes mellitus with hyperglycemia, Adult BMI 40.0-44.9 kg/sq m, Hypertension, Coronary artery disease, Hyperlipidemia Instructions: ED COPD Flare Prescriptions: New prednisone 20 mg tablet 60 mg PO DAILY Qty: 12 0RF doxycycline monohydrate 100 mg capsule 100 mg PO BID Qty: 10 0RF No Action atorvastatin 40 MG tablet 40 mg PO QHS Patient Comments: cholesterol albuterol sulfate 2.5 MG/3 ML solution for nebulization 2.5 mg inhalation Q6H PRN PRN (Reason: Sob &/Or Wheezing) Patient Comments: breathing glimepiride 2 MG tablet 2 mg PO DAILY Patient Comments: diabetes citalopram 20 MG tablet 30 mg PO DAILY Patient Comments: depression lisinopril 10 MG tablet 10 mg PO DAILY Patient Comments: blood pressure fluticasone furoate-vilanterol [Breo Ellipta] 1 EACH blister with device 1 ea IH DAILY Qty: 1 1RF Patient Comments: breathing albuterol sulfate [Ventolin HFA] 1 INHALER inhaler 2 puff inhalation Q2H PRN PRN (Reason: COUGH/WHEEZE) Qty: 0 0RF Patient Comments: breathing omeprazole 40 MG capsule,delayed release(DR/EC) 40 mg PO BID insulin detemir U-100 100 UNITS/ML insulin pen 50 units subcut QHS ibuprofen 800 MG tablet 800 mg PO Q8H PRN (Reason: Pain 1-10 Or Fever) loperamide [Imodium A-D] 2 mg capsule 2 mg PO Q4H PRN (Reason: loose stool) Qty: 10 0RF Rx Instructions: administer after each loose stool until symptoms controlled; do not exceed 8 mg per 24 hrs prednisone 20 mg tablet 40 mg PO DAILY Qty: 8 0RF azithromycin 250 mg tablet See Rx Instructions .ROUTE .COMPLEX Qty: 6 0RF Rx Instructions: For 250 mg dose pack: take 500 mg today (day 1), then 250 mg for 4 days (days 2-5) Jardiance 25 mg tablet 25 mg PO DAILY insulin lispro 100 unit/mL insulin pen 30 unit subcut QPM ondansetron 4 mg tablet,disintegrating 4 mg PO Q8H PRN PRN (Reason: Nausea) Qty: 14 0RF Primary Care Provider: Gerardo Borrego Referrals: Gerardo Borrego MD [Primary Care Provider, Family Practice] Print Language: Malagasy Disposition Disposition: Home, Self Care
[2025-08-18 23:10] VITALS: BP 118/74; PULSE 87; RESP 16; TEMP 36.7; O2SAT 97
== END 2025-08-18 23:15 | disposition home or self-care (01) ==
PROVIDERS: Emergency Provider Emergency Medicine; PCP Family Medicine; Visit Provider Emergency Medicine
DX: J44.1 Chronic obstructive pulmonary disease with (acute) exacerbation (principal); E11.65 Type 2 diabetes mellitus with hyperglycemia; I10 Essential (primary) hypertension; Z86.718 Personal history of other venous thrombosis and embolism; J98.01 Acute bronchospasm; I25.10 Atherosclerotic heart disease of native coronary artery without angina pectoris; E78.5 Hyperlipidemia, unspecified; Z87.891 Personal history of nicotine dependence; K21.9 Gastro-esophageal reflux disease without esophagitis
CPT/HCPCS: 71046; 80053; 85025; 94640; 99284; A4216

== ENCOUNTER 2025-09-19 05:56 | Emergency (ER) | payer MEDICARE, SELFPAY ==
[2025-09-19] VITALS (9 sets, daily range): BP systolic 128–136; BP diastolic 71–79; PULSE 64–113; RESP 16–32; TEMP 37–37.1; O2SAT 94–99; BMI 39.9
--- NOTE | 2025-09-19 06:07 | EKG12_ITS ---
Test Reason : SOB Blood Pressure : */* mmHG Vent. Rate : 111 BPM Atrial Rate : 111 BPM P-R Int : 174 ms QRS Dur : 96 ms QT Int : 358 ms P-R-T Axes : 41 100 57 degrees QTcB Int : 486 ms Sinus tachycardia Rightward axis Borderline ECG Confirmed by WILLIAMS MIRANDA, KALLIE ([id number]), legal editor TANESHA ROJO ([id number]) on 09/20/2025 9:15:24 AM Referred By: Confirmed By: KALLIE KRAMER MD
[2025-09-19] MEDS: 0.9% Normal Saline (1000mL) 1,000 ML 999 ML IV (06:21)
--- NOTE | 2025-09-19 06:25 | RAD_ITS ---
PROCEDURE: CHEST 1 VIEW (PORTABLE) 09/19/2025 REASON FOR EXAM: Shortness of breath. TECHNIQUE: Frontal view of the chest. COMPARISON: None. FINDINGS: Mild bilateral basilar atelectatic pulmonary changes. There is no demonstrated pleural abnormality. Normal heart and pericardium. Normal mediastinum and javan. Normal visualized pulmonary arteries. Normal visualized aortic arch and descending thoracic aorta. Normal visualized thoracic spine. Normal visualized ribs, clavicles, and shoulders. There is no demonstrated abnormality of the visualized soft tissue structures of the upper abdomen. RAD/Chest 1 View (Portable) IMPRESSION: Mild bilateral basilar atelectatic pulmonary changes. Reading [facility]
[2025-09-19 06:28] LABS: Hematocrit 49.5 % (40-54); Hemoglobin 16.4 g/dL (13.0-16.5); Immature Granulocytes Count 0.070 X10^3/uL (0.0-0.0); Mean Corp Hgb Conc 33.1 g/dL (32-36); Mean Corpuscular Volume 85.1 fL (80-94); Mean Platelet Vol. 10.8 fl (6.2-12.0); NRBC Flagged by Analyzer 0 % (0-5); Platelet Count 111 K/mm3 (150-450); RBC Distribution Width CV 13.0 % (11.6-14.6); RBC Distribution Width SD 39.4 fl (35.1-43.9); Red Blood Count 5.82 M/mm3 (4.6-6.2); White Blood Count 6.0 K/mm3 (4.4-11.0)
[2025-09-19] MEDS: Magnesium Sulfate 2 GM in Dextrose 5%-Water (100mL Bag) 100 ML IV (06:39)
--- OUTSIDE RECORDS SUMMARY | 2025-09-19 06:41 | XMS RPT_ITS | CCD ---
Author Organization [facility] Care Team Providers Care Outbound Sales Professional Name Role Phone Americo Borrego MD Unavailable Americo Borrego MD Primary Care Provider Americo Borrego MD Unavailable Americo Borrego MD Primary Care Provider Navdeep PLATFORM BEATER.Malika BORRERO Unavailable Luther PLATFORM BEATER.Dean BORRERO Unavailable AMERICO BORREGO Attending Unavailable AMERICO [...] Attending Unavailable AMERICO BORREGO Primary Care Unavailable AMEIRCO BORREGO Referring Unavailable AMERICO BORREGO Primary Care Unavailable Dr. Americo Borrego MD Primary Care Physician Dr. Melissa Holly DO Attending Physician Dr. Melissa Holly DO Emergency Department Physi leona Americo Borrego Primary Care Unavailable Melissa Holly Attending Unavailable Americo Borrego Primary Care Unavailable Whiteside, Sameer Attending Unavailable Medications Current Medications Medication Drug Class(es) Dates Sig (Normalized) Sig (Original) acetaminophen 500 mg oral tablet (20 sources) take 1 tablet by mouth every eight hours as needed acetaminophen (TYLENOL EXTRA STRENGTH) 500 mg tablet Take 500 mg by mouth every 8 hours as needed. Active Comment on above: Take 500 mg by mouth every 8 hours as needed. [id number] 200 actuat albuterol 0.09 mg/actuat metered dose [...] g 3 12/03/2021 07/09/2022 Discontinued Start: 11-20-2016 Start: 11-20-2016 take 1 puff(s) by in halation every two hours as needed Albuterol Sulfate (Ventolin Hfa) 1 INHALER inhaler Active 2 PUFF INHALATION EVERY 2 HOURS NEEDED 0 November 20, 2016 12:12pm Start: 01-03-2016 End: 01-08-2025 take 2.5 mg by inhalation every six hours as needed for wheezing Start: 01-03-2016 End: 11-20-2016 Albuterol Sulfate (Ventolin Hfa) 1 INHALER inhaler Discontinued 2 NMA INHALATION EVERY 4 HOURS NEEDED as needed for COUGH/WHEEZE January 03, 2016 12:00am November 20, 2016 12:12pm Start: 01-03-2016 End: 11-20-2016 take 1 puff(s) by inhalation every four hours as needed Albuterol Sulfate (Ventolin Hfa) 1 INHALER inhaler Discontinued 2 PUFF INHALATION EVERY 4 HOURS NEEDED January 03, 2016 12:00am November 20, 2016 12:12pm Start: 09-16-2015 End: 10-14-2015 take 2.5 mg by inhalation three to four times daily as needed for wheezing Albuterol Sulfate 2.5 MG/3 ML Vial.Neb. Discontinued 2.5 mg INHALATION DIRECTED as needed for Wheezing 1 September 16, 2015 7:25pm October 14, 2015 12:57pm use 3 to four times a day programmed Start: 08-16-2015 End: 09-16-2015 take 2.5 mg by inhalation every six hours as needed for wheezing Albuterol Sulfate 2.5 MG/3 ML Vial.Neb. Discontinued 2.5 mg INHALATION EVERY 6 HOURS NEEDED as needed for Wheezing August 16, 2015 8:40am September 16, 2015 7:25pm Start: 01-23-2015 End: 08-16-2015 take 2.5 mg by inhalation every four hours as needed for wheezing Albuterol Sulfate 2.5 MG/3 ML Vial.Neb. Discontinued 2.5 mg INHALATION EVERY 4 HOURS NEEDED 25 0 January 23, 2015 12:00am August 16, 2015 8:41am Use q4 hours and PRN for wheezing Start: 06-29-2014 End: 04-04-2015 Albuterol Sulfate (Proair Hf a) 1 PUFF inhaler Discontinued 1 - 2 NMA INHALATION EVERY 4 HOURS NEEDED as needed for shortness of breath June 29, 2014 12:00am April 04, 2015 8:55am Start: 06-29-2014 End: 04-04-2015 take 1 puff(s) [...] tablet (20 sources) HMG-CoA Reductase Inhibitor Start: 01-03-2016 End: 01-08-2025 take 1 tablet by mouth at bedtime Comment on above: Take 1 tablet by [facility] daily at bed[facility]. azithromycin 250 mg oral tablet (5 sources) Macrolide Antimicrobial Start: 07-06-2025 Start: 09-21-2023 End: 09-26-2023 take 2 tablets by mouth once daily, [...] (Zithromax Z-Travis) 250 MG tablet Discontinued 250 mg PO DIRECTED February 07, 2015 12:00am February 10, 2015 7:41am TAKE 2 TABLETS 1ST DAY THEN 1 TABLET DAILY FOR NEXT 4 DAYS. Comment on above: Take 2 tablets by mo [facility] once daily for 1 day, THEN 1 [...] 90 tablet 3 03/23/2024 Active Start: 01-03-2016 Start: 01-03-2016 take 30 mg by mouth once daily Citalopram Active 30 MG PO DAILY January 03, 2016 12:00am Start: 10-14-2015 End: 12-02-2015 take 3 tablets by mouth once daily Citalopram 10 MG tablet Discontinued 30 mg PO DAILY October 14, 2015 1:00am December 02, 2015 2:17pm Start: 10-14-2015 End: 12-02-2015 take 30 mg [...] 25 take 1 tablet by mouth once daily Start: 06-16-2023 take 1 tablet by sunshine th once daily, then take 1 tablet by mouth once daily in the morning empagliflozin (JARDIANCE) 10 mg tablet Take 1 tablet by mouth once daily. Take 1 tablet once daily in the morning 30 tablet 11 06/16/2023 Active Comment on above: Take 1 [...] 1 dose by inhal ation once daily Start: 11-30-2015 End: 12-02-2015 take 1 dose by inhalation once daily Fluticasone Furoate-Vilanterol (Breo Ellipta 100-25 Mcg Inh) 1 EACH Aer.Montse Discontinued 1 NMA INHALATION DAILY November 30, 2015 1:00am December 02, 2015 2:13pm Start: 11-30-2015 End: 12-02-2015 take 1 dose by inhalation once daily Fluticasone Furoate-Vilanterol (Breo Ellipta 100-25 Mcg Inh) 1 EACH Aer.Montse Discontinued 1 PUFF INHALATION DAILY November 30, 2015 1:00am December 02, 2015 2:13pm Start: 04-04-2015 End: 11-07-2015 take 1 dose by inhalation once daily Fluticasone Furoate-Vilanterol (Breo Ellipta) 1 EACH Aer.Montse Discontinued 1 NMA IH DAILY 15 09April 04, 2015 12:00am November 07, 2015 5:25pm Comment on above: take 1 inhalation by mouth once daily glimepiride 2 mg oral tablet (3 sources) Sulfonylurea Start: 01-03-20 16 take 1 tablet by mouth once daily ibuprofen 800 mg oral tablet (3 sources) Nonsteroidal Anti-inflammatory Drug Start: 09-11-20 20 take 1-10 tablets by mouth every eight hours as needed for pain 3 ml insulin glargine 100 unt/ml pen injector (7 sources) Insulin Analog Start: 08-27-20 insulin glargine (LANTUS SOLOSTAR U-100 INSULIN) 100 unit/mL (3 mL) Inject 40 Units subcutaneously two times a day. 30 mL 08/27/2024 Active 3 ml insulin lispro 100 unt/ml pen injector (20 sources) Insulin Analog Start: 05-22-20 insulin lispro (HUMALOG KWIKPEN INSULIN) 100 unit/mL Inject 20 Units subcutaneously daily with dinner. 15 mL 5 05/22/2024 Active Start: 05-14-2024 Start: 06-16-2023 End: 05-22-2024 insulin lispro (HUMALOG KWIK PEN INSULIN) 100 unit/mL Inject 30 Units subcutaneously daily with dinner. 15 mL 5 03/23/2024 05/22/2024 Discontinued Start: 09-09-2021 End: 07-09-2022 insulin lispro (HUMALOG KWIK PEN INSULIN) 100 unit/mL Indications: Type 2 diabetes mellitus without complication, 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 prison insulin use (HCC) Inject 20 Units subcutaneously daily with dinner. 1 Each 5 07/09/2022 Active Comment on above: Inject 20 Units subc utaneously daily with dinner. Inject 30 Units subc utaneously daily with dinner. lisinopril 20 mg oral tablet (20 sources) Angiotensin Converting Enzyme Inhibitor Start: 3 End: 5 take 1 tablet by mouth once daily lisinopril (ZESTRIL) 20 mg tablet Indications: Essential hypertension Take 1 tablet by mouth once daily. 90 tablet 3 01/08/2025 Active Start: 01-03-2016 take 1 tablet by sunshine [facility] once daily Start: 07-01-2014 End: 02-10-2015 take 1 tablet by mouth twice daily Lisinopril 5 MG tablet Discontinued 5 mg PO TWICE A DAY 60 0 July 01, 2014 12:00am February 10, 2015 7:41am Comment on above: Take 1 tablet by sunshine [facility] once daily. loperamide hydrochloride 2 mg oral capsule (3 sources) Opioid Agonist Start: 3 loratadine 10 mg oral tablet (20 sources) Start: 6 take 1 tablet by mouth once daily loratadine (CLARITIN) 10 mg tablet Take 1 tablet by mouth once daily. 30 tablet 11 06/11/2016 Active Comment on above: Take 1 tablet by [facility] once daily. omeprazole 20 mg delayed release oral capsule (20 sources) Proton Pump Inhibitor Start: 2 End: take 1 capsule by mouth twice daily before mealtime omeprazole (PRILOSEC) 20 mg capsule Take 1 capsule by mouth two times a day. 1/2 hr before meal. 60 capsule 09/28/2024 Active Start: 05-29-2021 take 1 capsule by [facility] twice daily before mealtime omeprazole (PRILOSEC) 20 mg capsule Take 1 capsule by mouth twice daily. 1/2 hr before meal. 60 capsule 11 05/29/2021 Active Start: 08-06-2019 take 1 capsule by [facility] twice daily Start: 08-06-2019 take 20 mg by mouth once daily Omeprazole Active 20 MG PO DAILY August 06, 2019 12:00am Start: 01-03-2016 End: 05-27-2016 take 1 capsule by mouth once daily Omeprazole 20 MG capsule Discontinued 20 mg PO DAILY January 03, 2016 12:00am May 27, 2016 8:18am Comment on above: Take 1 capsule by [facility] twice daily. 1/2 hr before meal. ondansetron 4 mg disintegrating oral tablet (4 sources) Serotonin-3 Receptor Antagonist Start: 12-06-2022 End: 05-14-2024 take 1 tablet by mouth every eight hours as needed for nausea predniSONE 20 mg oral tablet (20 sources) Start: 07-06-2025 take 2 tablets by mouth once daily Start: 11-26-2023 End: 11-30-2023 take 5 tablets by mouth once daily, [...] 01/12/2022 Active Start: 11-20-2016 End: 08-06-2019 Prednisone 10 MG Tab.Ds.Pk Discontinued 10 mg PO DAILY 18 0 November 20, 2016 1:00am August 06, 2019 10:10am Take 3 tabs for 3 days, then 2 tabs for 3 days, then 1 tab for 3 days, then stop Start: 05-25-2016 End: 05-27-2016 take 2 tablets by mouth once daily Prednisone 20 MG tablet Discontinued 40 mg PO DAILY@0800 4 0 May 25, 2016 12:00am May 27, 2016 8:18am Start: 05-25-2016 End: 05-27-2016 take 40 mg by mouth once daily Prednisone Discontinued 40 MG PO DAILY@0800 4 May 25, 2016 12:00am May 27, 2016 8:18am Start: 01-04-2016 End: 01-12-2016 take 4 tablets by mouth once daily, then take 1 tablet by mouth once daily Prednisone 20 MG tablet Discontinued 10 mg PO DAILY@0800 49 0 January 04, 2016 12:00am January 12, 2016 10:58am take 4 tablets once a day for 7 days; 2 tablets a day for 7 days, then 1 tablet a day for 7 days. Start: 01-04-2016 End: 01-12-2016 take 4 tablets by mouth once daily, then take 1 tablet by mouth once daily Prednisone Discontinued 10 MG PO DAILY@0800 49 January 04, 2016 12:00am January 12, 2016 10:58am take 4 tablets once a day for 7 days; 2 tablets a day for 7 days, then 1 tablet a day for 7 days. Start: 01-03-2016 End: 01-12-2016 take 1 tablet by mouth once daily Prednisone 20 MG tablet Discontinued 20 mg PO DAILY@0800 January 03, 2016 12:00am January 12, 2016 10:58am Start: 09-16-2015 End: 10-15-2015 take 1 tablet by mouth twice daily Prednisone 20 MG tablet Discontinued 20 mg PO TWICE DAILY WITH MEALS 14 0 September 16, 2015 1:00am October 15, 2015 12:08pm one twice a day until gone Start: 08-16-2015 End: 08-19-2015 take 1 mg by mouth once daily Prednisone 5 MG tablet Discontinued mg PO DAILY August 16, 2015 12:00am August 19, 2015 11:57am Start: 08-16-2015 End: 08-19-2015 take 1 mg by mouth once daily Prednisone Discontinued MG PO DAILY August 16, 2015 12:00am August 19, 2015 11:57am Start: 04-01-2015 End: 04-04-2015 take 1 tablet by mouth once daily Prednisone 10 MG tablet Discontinued 10 mg PO DAILY April 01, 2015 12:00am April 04, 2015 8:55am Start: 06-29-2014 End: 07-01-2014 Prednisone 10 MG tablet Discontinued June 29, 2014 12:00am July 01, 2014 2:42pm Start: 06-29-2014 End: 07-01-2014 Prednisone Discontinued Jun 12:00am July 01, 2014 2:42pm Comment on above: Take 2 tablets by mo [facility] once daily for 5 days. Take 1 tablet by [facility] daily for 4 days. Take daily with food. Take 5 tablets by mo ut once daily for 1 day, THEN 4 tablets once daily for 1 day, THEN 3 tablets once daily for 1 day, THEN 2 tablets once daily for 1 day, THEN 1 tablet once daily for 1 day. Completed/Discontinued Medications Medication Drug Class(es) Dates Sig (Normalized) Sig (Original) acetaminophen 325 mg / HYDROcodone bitartrate 5 mg oral tablet (3 sources) Opioid Agonist Start: 04-20-2019 End: 04-29-2019 Hydrocodone-Acetamino phen 1 TABLET tablet Discontinued 1 {tbl} PO EVERY 6 HOURS NEEDED as needed for Pain 10 3 0 April 20, 2019 April 22, 2019 12:00am April 29, 2019 12:09am Diverticulitis Start: 04-20-2019 End: 04-29-2019 take 1 tablet by mouth every six hours as needed Hydrocodone-Acetaminophen Discontinued 1 TABLET PO EVERY 6 HOURS NEEDED 10 3 April 20, 2019 April 29, 2019 12:09am acetaminophen 325 mg / oxyCODONE hydrochloride 5 mg oral tablet (6 sources) Opioid Agonist Start: 09-11-2020 End: 05-14-2024 take 1-10 tablets by mouth every six hours as needed for pain Oxycodone-Acetaminophen 1 TABLET tablet Discontinued 1 {tbl} PO EVERY 6 HOURS NEEDED as needed for Pain 1-10 Or Fever September 11, 2020 1:00am May 14, 2024 8:28pm Start: 09-11-2020 take 1 tablet by sunshine [facility] every six hours as needed Oxycodone-Acetaminophen Active 1 TABLET PO EVERY 6 HOURS NEEDED September 11, 2020 1:00am Start: 12-08-2019 End: 12-11-2019 Oxycodone-Acetaminophen 1 TA BLET tablet Discontinued 1 {tbl} PO EVERY 6 HOURS NEEDED as needed for Pain 12 3 0 December 08, 2019 December 10, 2019 1:00am December 11, 2019 1:08am Abdominal pain Unspecified abdominal pain Start: 12-08-2019 End: 12-11-2019 take 1 tablet by mouth every six hours as needed Oxycodone-Acetaminophen Discontinued 1 TABLET PO EVERY 6 HOURS NEEDED 12 3 December 08, 2019 December 11, 2019 1:08am Antibiotic-Unknown Name (3 sources) Start: 08-16-2015 End: 08-19-2015 Start: 08-16-2015 End: 08-19-2015 canagliflozin 300 mg oral tablet (15 sources) Sodium-Glucose Cotransporter 2 Inhibitor Start: 12-28-2021 End: 06-16-2023 take 1 tablet by mouth once daily at breakfast canagliflozin (INVOKANA) 300 mg tablet Take 1 tablet by mouth daily with breakfast. 30 tablet 11 12/25/2022 06/16/2023 Discontinued Start: 09-11-2020 End: 05-14-2024 take 1 tablet by mouth once daily Canagliflozin 100 MG tablet Discontinued 100 mg PO DAILY September 11, 2020 1:00am May 14, 2024 8:25pm Comment on above: [facility] by [facility] with [facility]. doxycycline monohydrate 100 mg oral capsule (6 sources) Tetracycline-class Drug Start: 4 End: 4 take 1 capsule by mouth twice daily doxycycline monohydrate (MONODOX) 100 mg capsule Indications: Asthma with COPD with exacerbation (HCC) (HCC) Take 1 capsule by mouth two times a day for 5 days. 10 capsule 0 11/26/2023 12/01/2023 Start: 03-27-2015 End: 04-04-2015 take 1 capsule by mouth twice daily Doxycycline Hyclate 100 MG capsule Discontinued 100 mg PO TWICE A DAY 20 0 March 27, 2015 12:00am April 04, 2015 8:55am Comment on above: Take 1 capsule by mo [facility] two times a day for 5 days. 120 actuat formoterol fumarate 0.005 mg/actuat / mometasone furoate 0.2 mg/actuat metered dose inhaler (3 sources) Corticosteroid, beta2-Adrenergic Agonist Start: 5 End: 5 Mometasone-Formotero l (Dulera 200 Mcg/5 Mcg Inhaler) 8.8 GM Hfa.Aer.Ad Discontinued 8.8 g IH DAILY April 01, 2015 12:00am April 04, 2015 8:55am 12 hr guaiFENesin 600 mg extended release oral tablet (20 sources) Start: 6 End: 6 take 1 tablet by mouth twice daily Guaifenesin (Mucus Relief Er) 600 MG tablet Discontinued 600 mg PO TWICE A DAY 30 0 January 12, 2016 12:00am January 15, 2016 2:25pm Comment on above: Take 600 mg by mouth twice daily as needed. homatropine methylbromide 0.3 mg/ml / HYDROcodone bitartrate 1 mg/ml oral solution (2 sources) Opioid Agonist, Cholinergic Muscarinic Agonist Start: 4 End: 4 Hydrocodone-Homatrop ine (Hycodan) 5-1.5 mg/5 mL (5 mL) syrup Discontinued 5 mL PO 4 TIMES DAILY as needed for cough 140 7 0 January 29, 2024 May 14, 2024 8:28pm Obstructive chronic bronchitis with exacerbation Chronic obstructive pulmonary disease with (acute) exacerbation Start: 01-29-2024 Hydrocodone-Ho matropine (Hycodan) 5-1.5 mg/5 mL (5 mL) syrup Active 5 ML PO 4 TIMES DAILY 140 7 January 29, 2024 3 ml insulin aspart, human 100 unt/ml pen injector (3 sources) Insulin Analog Start: 04-04-2023 End: 06-16-2023 insulin aspart U-100 (NOVOLOG FLEXPEN U-100 INSULIN) 100 unit/mL (3 mL) Indications: Type 2 diabetes mellitus without complication, 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 prison insulin use (HCC) Inject 30 Units subcutaneously daily with dinner. 15 mL 3 04/25/2023 06/16/2023 Discontinued Comment on above: Inject 30 Units subc utaneously daily with dinner. 3 ml insulin detemir 100 unt/ml pen injector (20 sources) Insulin Analog Start: 05-22-2024 End: 01-08-2025 insulin detemir U-100 (LEVEMIR FLEXTOUCH U-100 INSULIN) 100 unit/mL (3 mL) injection pen Indications: Type 2 diabetes mellitus without complication, 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 prison insulin use (HCC) Inject 40 Units subcutaneously two times a day. 10 Each 06/06/2024 01/08/2025 Discontinued (Changing Therapy/Dosage Form) Start: 11-28-2023 End: 05-22-2024 insulin detemir U-100 (LEVEM IR FLEXTOUCH U-100 INSULIN) 100 unit/mL (3 mL) injection pen Indications: Type 2 diabetes mellitus without complication, 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 prison insulin use (HCC) Inject 45 Units subcutaneously two times a day. 8 Each 5 11/28/2023 05/22/2024 Discontinued Start: 04-04-2023 End: 11-26-2023 insulin detemir U-100 (LEVEM IR FLEXTOUCH U-100 INSULIN) 100 unit/mL (3 mL) injection pen Indications: Type 2 diabetes mellitus without complication, 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 prison insulin use (HCC) Inject 45 Units subcutaneously twice daily. 8 Each 5 04/25/2023 11/26/2023 Discontinued Start: 03-01-2022 End: 07-04-2022 [...] [IU] by harris bcutaneous injection at bedtime Start: 08-06-2019 inject 50 [IU] by harris bcutaneous injection at bedtime Insulin Detemir U-100 Active 50 UNITS subcut AT BEDTIME August 06, 2019 2:22pm Start: 11-20-2016 End: 08-06-2019 Insulin Detemir U-100 (Levem ir Flextouch U100 Insulin) 100 UNITS/ML Insuln.Pen Discontinued 20 U SC DAILY 0 November 20, 2016 1:00am August 06, 2019 2:24pm Start: 11-20-2016 End: 08-06-2019 Insulin Detemir U-100 (Levem ir Flextouch U-100 Insuln) 100 UNITS/ML Insuln.Pen Discontinued 20 UNITS SC DAILY November 20, 2016 12:00am August 06, 2019 1:24pm Start: 05-25-2016 End: 11-20-2016 Insulin Detemir U-100 (Levem ir Flextouch U100 Insulin) 100 UNITS/ML Insuln.Pen Discontinued 10 U SC DAILY 15 11May 25, 2016 12:00am November 20, 2016 12:10pm [...] a day. methylPREDNISolone 4 mg oral tablet (3 sources) Corticosteroid Start: 2014 End: 2015 Methylprednisolone 4 MG tablet Discontinued 4 mg PO 4 TIMES DAILY October 15, 2015 1:00am November 07, 2015 5:24pm Take 32 mg by mouth twice a day 5 days, then 32 milligrams by mouth daily 5 days, then 60 mg by mouth daily 5 days, then 8 mg by mouth daily 5 days. oxyCODONE hydrochloride 5 mg oral tablet (3 sources) Opioid Agonist Start: 2015 End: 2015 take 2 tablets by mouth every four hours as needed for pain Oxycodone 5 MG tablet Discontinued 10 mg PO EVERY 4 HOURS NEEDED as needed for MODERATE PAIN 10 November 07, 2015 1:00am November 07, 2015 5:34pm Start: 11-07-2015 End: 11-07-2015 take 10 mg by mouth every four hours as needed Oxycodone Discontinued 10 MG PO EVERY 4 HOURS NEEDED November 07, 2015 1:00am November 07, 2015 5:34pm sucralfate 1000 mg oral tablet (2 sources) Aluminum Complex Start: 01-08-2025 End: 04-12-2025 take 1 tablet by mouth four times daily sucralfate (CARAFATE) 1 gram tablet Indications: Gastroesophageal reflux disease, 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 esophagitis present Take 1 tablet by mouth four times daily. 120 tablet 2 01/08/2025 04/12/2025 Discontinued triamcinolone acetonide 0.25 mg/ml topical cream (9 sources) Corticosteroid Start: 02-11-2021 triamcinolone (KENALOG) 0.025 % cream Indications: Itching Apply to affected area twice daily. 30 g 2 02/11/2021 Active Comment on above: Apply to affected ar ea twice daily. Problems Active Problems Problem Classification Problem Date Documented Da te Episodic/Chronic Abdominal pain (20 sources) Epigastric pain; Translations: [Epigastric pain] Onset: 1 Resolved: 4 05-03-2013 Episodic Acute and unspecified renal failure (3 sources) Prerenal azotemia; Translations: [Unspecified kidney failure] 12-06-2022 Chronic Acute bronchitis (6 sources) Bronchitis; Translations: [Acute bronchitis, unspecified] 04-20-2019 Episodic Anxiety disorders (4 sources) Generalized anxiety disorder; Translations: [Generalized anxiety disorder] 06-29-2023 Chronic Asthma (20 sources) Asthma; Translations: [Unspecified asthma, uncomplicated] Onset: 7 05-03-2020 Chronic Cardiac dysrhythmias (3 sources) Sinus tachycardia; Translations: [Tachycardia, unspecified] 12-06-2022 Episodic Chronic obstructive pulmonary disease and bronchiectasis (20 sources) Chronic obstructive lung disease; Translations: [Chronic obstructive pulmonary disease, unspecified] Onset: 4 05-03-2020 Chronic Chronic obstructive pulmonary disease and bronchiectasis (3 sources) Chronic obstructive pulmonary disease and bronchiectasis 04-20-2019 Coagulation and hemorrhagic disorders (20 sources) Platelet count below reference range; Translations: [Thrombocytopenia, unspecified] Onset: 3 03-29-2023 Chronic Coronary atherosclerosis and other heart disease (20 sources) Coronary atherosclerosis; Translations: [Atherosclerotic heart disease of [place] coronary artery without angina pectoris] Onset: 4 11-13-2019 Chronic Diabetes mellitus with complications (20 sources) Hyperglycemia due to type 2 diabetes mellitus; Translations: [Type 2 diabetes mellitus with hyperglycemia] Onset: 3 12-06-2022 Chronic Diabetes mellitus without complication (20 sources) Type 2 diabetes mellitus without complication; Translations: [Type 2 diabetes mellitus without complications] Onset: 4 05-03-2020 Chronic Diabetes mellitus without complication (2 sources) Hyperglycemia; Translations: [Hyperglycemia, unspecified] 01-29-2024 Episodic Disorders [...] urinary tract symptoms] Onset: 9 04-18-2019 Chronic Inflammatory conditions of male genital organs (20 sources) Epididymitis; Translations: [Epididymitis] Onset: 0 09-12-2020 Episodic Mood disorders (20 sources) Depressive disorder; Translations: [Depression] Onset: 7 11-13-2019 Chronic Mood disorders (1 source) Mood disorders; Translations: [Depression, unspecified depression type] Onset: 0 Nausea and vomiting (3 sources) Nausea, vomiting and diarrhea; Translations: [Nausea with vomiting, unspecified] 12-06-2022 Episodic Other aftercare (1 source) Post-discharge follow-up; Translations: [Encounter for follow-up examination after completed treatment for conditions other than malignant neoplasm] 05-22-2024 Episodic Other circulatory disease (3 sources) Patient post angioplasty; Translations: [Peripheral vascular angioplasty status] 12-06-2022 Episodic Other gastrointestinal disorders (3 sources) History of diverticulitis; Translations: [Personal history of other diseases of the digestive system] 04-20-2019 Episodic Other gastrointestinal disorders (3 sources) H/O: gastrointestinal disease; Translations: [Personal history of other diseases of the digestive system] 04-20-2019 Episodic Other liver diseases (20 sources) Steatosis of liver; Translations: [Fatty (change of) liver, not elsewhere classified] Onset: 0 05-03-2020 Chronic Other lower respiratory disease (3 sources) Respiratory insufficiency; Translations: [Other abnormalities of breathing] 08-06-2019 Episodic Other lower respiratory disease (2 sources) Dyspnea; Translations: [Shortness of breath] 09-21-2023 Episodic Other lower respiratory disease (1 source) Shortness of breath; Translations: [Shortness of breath] Onset: 5 Episodic Other male genital disorders (3 sources) Adult hydrocele; Translations: [Hydrocele, unspecified] 08-06-2019 Episodic Other nutritional; endocrine; and metabolic disorders (20 sources) Body mass index 40+ - severely obese; Translations: [Morbid (severe) obesity due to excess calories] Onset: 0 Resolved: 4 11-13-2019 Chronic Other screening for suspected conditions (not mental disorders or infectious disease) (1 source) Patient encounter status; Translations: [Encounter for screening for malignant neoplasm of respiratory organs] 06-29-2023 Episodic Other upper respiratory infections (3 sources) Viral upper respiratory tract infection; Translations: [Acute upper respiratory infection, unspecified] 04-20-2019 Episodic Phlebitis; thrombophlebitis and thromboembolism (20 sources) Deep venous thrombosis of lower extremity; Translations: [Acute embolism and thrombosis of unspecified deep veins of unspecified lower extremity] Onset: 1 Resolved: 3 05-03-2020 Episodic Pneumonia (except that caused by tuberculosis or sexually transmitted disease) (3 sources) Community acquired pneumonia; Translations: [Pneumonia, unspecified organism] 08-06-2019 Episodic Residual codes; unclassified (20 sources) Obstructive sleep apnea syndrome; Translations: [Obstructive sleep apnea (adult) (pediatric)] Onset: 4 05-03-2020 Chronic Comment on above: bipap at night Residual codes; unclassified (1 source) Obstructive sleep apnea (adult) (pediatric); Translations: [Obstructive sleep apnea treated with BiPAP] Onset: 0 Chronic Spondylosis; intervertebral disc disorders; other back problems (20 sources) Displacement of cervical intervertebral disc; Translations: [Other cervical disc displacement, unspecified cervical region] Onset: 9 06-16-2009 Chronic Substance-related disorders (20 sources) Nicotine dependence; Translations: [Nicotine dependence, unspecified, uncomplicated] Onset: 0 05-03-2020 Chronic Viral infection (1 source) Viral disease; Translations: [Viral infection, unspecified] 07-14-2025 Episodic Past or Other Problems Problem Classification Problem Date Documented Da te Episodic/Chronic Biliary tract disease (20 sources) Chronic cholecystitis; Translations: [Chronic cholecystitis] Onset: 09-15-2010 09-15-2010 Episodic Fluid and electrolyte disorders (17 sources) Hyponatremia; Translations: [Hypo-osmolality and hyponatremia] Onset: 11-09-2019 Resolved: 11-13-2019 11-13-2019 Episodic Fracture of lower limb (20 sources) Fracture of femur; Translations: [Unspecified fracture of unspecified femur, initial encounter for closed fracture] Onset: 03-25-2011 12-27-2021 Episodic Gastritis and duodenitis (20 sources) Gastritis; Translations: [Gastritis, unspecified, without bleeding] Onset: 11-04-2010 11-04-2010 Episodic Gastrointestinal hemorrhage (20 sources) Hematochezia; Translations: [Melena] Onset: 11-04-2010 11-04-2010 Episodic Intestinal infection (20 sources) Infection caused by Helicobacter pylori; Translations: [Other specified bacterial intestinal infections] Onset: 09-15-2010 09-15-2010 Episodic Other aftercare (1 source) 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 (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) use of insulin; Translations: [Type 2 [...] Onset: 11-09-2019 Resolved: 03-29-2023 05-03-2020 Chronic Other male genital disorders (20 sources) Disorder [...] metabolism] Onset: 11-12-2019 Resolved: 11-13-2019 11-13-2019 Chronic Screening and history of mental health and substance abuse codes (20 sources) Tobacco use and exposure - finding; Translations: [Personal history of nicotine dependence] Onset: 06-16-2009 05-03-2020 Episodic Results Test Name Value Interpretation Reference Range Facility CBC W/Diff, Automatedon 11-0 Absolute Lymph 2.94 X10 3/uL Normal 0.83-4.51 [facility] Comment on above: Performed By: #### L 100.0100, L500.4050 #### [facility] [address] [place], [address] Absolute Neut 3.6 X10 3/uL Normal 2.0-7.7 [facility] Comment on above: Performed By: #### L 100.0100, L500.4050 #### [facility] [address] [place], [address] Basophils/100 WBC (Bld) 0.8 % Normal 0-1 [facility] Comment on above: Performed By: #### L 100.0100, L500.4050 #### [facility] [address] [place], [address] Eosinophils/100 WBC (Bld) 5.5 % High 0-5 [facility] Comment on above: Performed By: #### L 100.0100, L500.4050 #### [facility] [address] [place], [address] Erythrocyte distribution width (RBC) [Ratio] 12.5 % Normal 11.6-14.6 [facility] Comment on above: Performed By: #### L 100.0100, L500.4050 #### [facility] [address] [place], [address] Hematocrit (Bld) [Volume fraction] 47.3 % Normal 40-54 [facility] Comment on above: Performed By: #### L 100.0100, L500.4050 #### [facility] [address] [place], [address] Hemoglobin (Bld) [Mass/Vol] 16.3 g/dL Normal 13.0-16.5 [facility] Comment on above: Performed By: #### L 100.0100, L500.4050 #### [facility] [address] [place], [address] IG% 0.400 Normal 0.0-0.9 [facility] Comment on above: Result Comment: IG% - Immature Granulocytes (promyelocytes, myelocytes and metamyelocytes) > 1% indicates that a LEFT SHIFT is Present. Performed By: #### L 100.0100, L500.4050 #### [facility] [address] [place], [address] Lymphocytes/100 WBC (Bld) 39.5 % Normal 19-41 [facility] Comment on above: Performed By: #### L 100.0100, L500.4050 #### [facility] [address] [place], [address] MCH (RBC) [Entitic mass] 28.3 pg Normal 27.0-32.0 [facility] Comment on above: Performed By: #### L 100.0100, L500.4050 #### [facility] [address] [place], [address] MCHC (RBC) [Mass/Vol] 34.5 g/dL Normal 32-36 [facility] Comment on above: Performed By: #### L 100.0100, L500.4050 #### [facility] [address] [place], [address] MCV (RBC) [Entitic vol] 82.3 fL Normal 80-94 [facility] Comment on above: Performed By: #### L 100.0100, L500.4050 #### [facility] [address] [place], [address] Monocytes/100 WBC (Bld) 6.0 % Normal 0-10 [facility] Comment on above: Performed By: #### L 100.0100, L500.4050 #### [facility] [address] [place], [address] Neutrophils/100 WBC (Bld) 47.8 % Normal 47-70 [facility] Comment on above: Performed By: #### L 100.0100, L500.4050 #### [facility] [address] [place], [address] Nucleated RBC (Bld) [#/Vol] 0 10*3/uL Normal 0-5 [facility] Comment on above: Performed By: #### L 100.0100, L500.4050 #### [facility] [address] [place], [address] Platelet mean volume (Bld) [Entitic vol] 10.9 fL Normal 6.2-12.0 [facility] Comment on above: Performed By: #### L 100.0100, L500.4050 #### [facility] [address] [place], [address] Platelets (Bld) [#/Vol] 120 10*3/uL Low 150-450 [facility] Comment on above: Performed By: #### L 100.0100, L500.4050 #### [facility] [address] [place], [address] RBC (Bld) [#/Vol] 5.75 10*6/uL Normal 4.6-6.2 [facility] Comment on above: Performed By: #### L 100.0100, L500.4050 #### [facility] [address] [place], [address] RDW SD 37.4 fl Normal 35.1-43.9 [facility] Comment on above: Performed By: #### L 100.0100, L500.4050 #### [facility] [address] [place], [address] WBC (Bld) [#/Vol] 7.5 10*3/uL Normal 4.4-11.0 [facility] Comment on above: Performed By: #### L 100.0100, L500.4050 #### [facility] [address] [place], [address] Chest PA and Lateralon 08-18 Chest PA and Lateral [facility] Imaging Services [address] [place] [address] Chest PA and Lateral MR#: [id number] Acct: [id number] Name: ELIEL SOUZA Rep #: [id number] : 1970 M 55 From: Vikas Mcdonald MD PCP: Dr. Americo Borrego MD Status: DEP ER Study: Chest PA and Lateral Date of Exam: 08/18/25 Exam# [id number] Ordering Dr: Sameer Whiteside MD PROCEDURE: CHEST PA AND LATERAL 08/18/2025 REASON FOR EXAM: PRODUCTIVE COUGH, HISTORY OF COPD TECHNIQUE: Procedure Code: RADCXR Modality: DX Procedure: CHEST PA AND LATERAL COMPARISON: 07/06/2025. FINDINGS: The lungs are clear. The cardiomediastinal silhouette appears unremarkable. No acute osseous abnormality. RAD/Chest PA and Lateral IMPRESSION: As above. Reading Location: [id number] CC: Dr. Americo Borrego MD; Dr. Sameer Whiteside MD Wood Inspector: Signed Normal [facility] Comprehensive Metabolic Prof ilon 08-18-2025 Albumin [Mass/Vol] 4.2 g/dL Normal 3.5-5.0 [facility] Comment on above: Performed By: #### L 100.0100, L500.4050 #### [facility] [address] [place], [address] Albumin/Globulin [Mass ratio] 1.5 {ratio} Normal 0.9-2.4 [facility] Comment on above: Performed By: #### L 100.0100, L500.4050 #### [facility] [address] [place], [address] ALK PHOS 93 U/L Normal 40-129 [facility] Comment on above: Performed By: #### L 100.0100, L500.4050 #### [facility] [address] [place], [address] ALT [Catalytic activity/Vol] 31 U/L Normal <=46 [facility] Comment on above: Performed By: #### L 100.0100, L500.4050 #### [facility] [address] [place], [address] AST [Catalytic activity/Vol] 28 U/L Normal <=37 [facility] Comment on above: Performed By: #### L 100.0100, L500.4050 #### [facility] [address] [place], [address] Bilirubin [Mass/Vol] 0.50 mg/dL Normal 0.00-1.30 [facility] Comment on above: Performed By: #### L 100.0100, L500.4050 #### [facility] [address] [place], [address] BUN/CRE 32.7 RATIO High 10-20 [facility] Comment on above: Performed By: #### L 100.0100, L500.4050 #### [facility] [address] [place], [address] Calcium [Mass/Vol] 9.5 mg/dL Normal 7.6-11.0 [facility] Comment on above: Performed By: #### L 100.0100, L500.4050 #### [facility] [address] [place], [address] Chloride [Moles/Vol] 104 mmol/L Normal 98-108 [facility] Comment on above: Performed By: #### L 100.0100, L500.4050 #### [facility] [address] [place], [address] CO2 [Moles/Vol] 19.8 mmol/L Low 21.0-32.0 [facility] Comment on above: Performed By: #### L 100.0100, L500.4050 #### [facility] [address] [place], [address] Creatinine [Mass/Vol] 0.70 mg/dL Normal 0.70-1.20 [facility] Comment on above: Performed By: #### L 100.0100, L500.4050 #### [facility] [address] [place], [address] ECRCL 154.00 ml/min Normal 50-250 [facility] Comment on above: Performed By: #### L 100.0100, L500.4050 #### [facility] [address] [place], [address] GAP 14 Normal 5-15 [facility] Comment on above: Performed By: #### L 100.0100, L500.4050 #### [facility] [address] [place], [address] GFR/1.73 sq M.predicted among non-blacks MDRD (S/P/Bld) [Vol rate/Area] 108 mL/min/{1.73_m2} Normal >60 [facility] Comment on above: Result Comment: mL/m in/1.73m2 CKD-EPI Creatinine Equation (2020) Performed By: #### L 100.0100, L500.4050 #### [facility] [address] [place], [address] Globulin (S) [Mass/Vol] 2.9 g/dL Normal 2.2-4.2 [facility] Comment on above: Performed By: #### L 100.0100, L500.4050 #### [facility] [address] [place], [address] Glucose [Mass/Vol] 216 mg/dL High 70-99 [facility] Comment on above: Performed By: #### L 100.0100, L500.4050 #### [facility] [address] [place], [address] Potassium [Moles/Vol] 3.9 mmol/L Normal 3.3-5.1 [facility] Comment on above: Performed By: #### L 100.0100, L500.4050 #### [facility] [address] [place], [address] Sodium [Moles/Vol] 138 mmol/L Normal 133-145 [facility] Comment on above: Performed By: #### L 100.0100, L500.4050 #### [facility] [address] [place], [address] T PROT 7.0 g/dL Normal 5.9-8.4 [facility] Comment on above: Performed By: #### L 100.0100, L500.4050 #### [facility] [address] [place], [address] Urea nitrogen [Mass/Vol] 23 mg/dL High 4-19 [facility] Comment on above: Performed By: #### L 100.0100, L500.4050 #### [facility] [address] [place], [address] Emergency Department Summary on 08-18-2025 Emergency Department Summary [facility] Medical Records Department [address] [place] [address] Emergency Department Summary 08/18/25 MR#: [id number] Acct: [id number] Name: ELIEL SOUZA Rep #: [id number] : 1970 55 From: Sameer Whiteside MD PCP: Dr. Americo Borrego MD Status:REG ER Location: ED HPI History of Present Illness Chief Complaint: Shortness of Breath Detail of Chief Complaint: Shortness of breath, wheezing, productive cough history of COPD Informant: patient Onset/Context/Timing Onset: Weeks (Onset approximately 2 weeks ago) Context: sudden Timing: Continuous and Waxes and wanes Quality: Positive for Dyspnea on exertion and Wheezing; Negative for Orthopnea or PND Current Severity: Moderate Maximum Severity: Severe Worsened by: Exertion and Coughing Relieved by: Nothing Associated Symptoms cough, post nasal drip, yellow sputum and green sputum; Negative for rhinorrhea, ear pain, fever, sore throat, subjective, chills, sweats, clear sputum or white sputum Chest Pain: Positive for None Narrative Narrative: Patient is a 55-year-old male. He presents with shortness of breath, wheezing, productive cough of yellow to green sputum. He has not smoked since 2019. He was seen July 06 for viral upper respiratory infection. He was seen also April 2024 for unspecified abdominal pain. He was seen December 2023 for COPD exacerbation. He denies fever, chills night sweats. He reports mild postnasal drainage. He denies headache, visual, ocular auditory symptoms. He denies chest pressure, tightness or heaviness. He denies pain with breathing. He has no history of VTE. He has no risk factors for VTE. He denies leg pain or discoloration. Patient denies abdominal pain, nausea, vomiting or diarrhea. Patient states the last 5 days had a productive cough of yellow to green sputum. He has been wheezing even at rest. He is been using his inhaler with little improvement. He has been on steroids recently. PE Risk Factors: Negative for Cancer, OCP + Smoking + > 35, Prior DVT or PE, Recent immobilization, Recent surgery or Recent travel Prior similar symptoms: Yes Recent Illness/Hospitalizat ion: No PFSH PFSH Medical History Diverticulitis Femur fracture Rib fracture H. pylori infection Cholecystitis Fatty liver Depression BPH (benign prostatic hyperplasia) DVT (deep venous thrombosis) GERD (gastroesophageal reflux disease) Diverticula of colon HTN (hypertension) COPD (chronic obstructive pulmonary disease) Diabetes mellitus Home Medications ???Medication ???Instructions ???Recorded ???Last Taken ???Type albuterol sulfate 2.5 mg/3 mL 2.5 mg inhalation Q6H PRN PRN Sob 01/03/16 11/18/16 04:00 History (0.083 %) solution for nebulization /Or Wheezing atorvastatin 40 mg tablet 40 mg PO QHS 01/03/16 08/05/19 His tory citalopram 20 mg tablet 30 mg PO DAILY 01/03/16 08/06/19 H istory glimepiride 2 mg tablet 2 mg PO DAILY 01/03/16 08/06/19 Hi story lisinopril 10 mg tablet 10 mg PO DAILY 01/03/16 08/06/19 H istory fluticasone furoate 100 1 ea IH DAILY ##1 05/25/16 9 Rx mcg-vilanterol 25 mcg/dose inhalation powder (Breo Ellipta) albuterol sulfate 90 mcg/actuation 2 puff inhalation Q2H PRN PRN 08/06/19 Rx aerosol inhaler (Ventolin HFA) COUGH/WHEEZE ##0 insulin detemir U-100 100 unit/mL 50 units subcut QHS 08/06/1907/18 History (3 mL) subcutaneous pen omeprazole 40 mg capsule,delayed 40 mg PO BID 08/06/19 08/06/19 His tory release ibuprofen 800 mg tablet 800 mg PO Q8H PRN Pain 1-10 Or Unknown History Fever loperamide 2 mg capsule (Imodium 2 mg PO Q4H PRN loose stool #10 Unknown Rx A-D) caps empagliflozin 25 mg tablet 25 mg PO DAILY 05/14/24 Unknown Hi story (Jardiance) insulin lispro 100 unit/mL 30 unit subcut QPM 05/14/24 Unknow n History subcutaneous pen ondansetron 4 mg disintegrating 4 mg PO Q8H PRN PRN Nausea #14 tab s 05/14/24 Unknown Rx tablet azithromycin 250 mg tablet See Rx Instructions PO .COMPLEX #6 07/06/25 Unknown Rx tabs prednisone 20 mg tablet 40 mg (2 x 20 mg) PO DAILY #8 tabs 07/06/25 Unknown Rx doxycycline monohydrate 100 mg 100 mg PO BID #10 CAPSULES 5 Unknown Rx capsule prednisone 20 mg tablet 60 mg (3 x 20 mg) PO DAILY #12 12/11 Unknown Rx TABLETS Allergy/AdvReac Type Severity Reaction Status Date / Time No Known Allergies Allergy Verified 08/18/25 21:34 Social History household members: none Smoking Status: Former smoker substance use type: does not use ROS ROS ED Constitutional Constitutional ED: Denies chills, fever(s), sweats or weight loss Eyes Eyes: Denies blurry vision or change (more content not included)... Normal [facility] 12 Lead EKGon 07-06-2025 12 Lead EKG [facility] Cardiovascular Services [address] [place] [address] 12 Lead EKG 07/06/25 1550 MR#: [id number] Acct: [id number] Name: ELIEL SOUZA Rep #: [id number] : 1970 55 From: Aneudy Mathew MD Attending Dr: Status: DEP ER Ordering Dr: Melissa Holly DO Date: 07/06/25 Location: ED Sex: M C Admitted: Test Reason : DYSP Blood Pressure : */* mmHG Vent. Rate : 82 BPM Atrial Rate : 82 BPM P-R Int : 172 ms QRS Dur : 94 ms QT Int : 388 ms P-R-T Axes : 57 89 70 degrees QTcB Int : 453 ms Normal sinus rhythm Normal ECG Confirmed by ANEUDY MATHEW MD ([id number]), international editorial producer TANESHA ROJO ([id number]) on 07/08/2025 8:28:35 AM Referred By: Confirmed By: ANEUDY MATHEW MD 07/08/25 0828 Date Aneudy Mathew MD CC: Dr. Melissa Holly DO; Dr. Americo Borrego MD Signed Normal [facility] Chest PA and Lateralon 07-06 Chest PA and Lateral [facility] Imaging Services [address] [place], [place] [address] Chest PA and Lateral MR#: [id number] Acct: [id number] Name: ELIEL SOUZA Rep #: [id number] : 1970 M 55 From: Maged Archuleta MD PCP: Dr. Americo Borrego MD Status: REG ER Study: Chest PA and Lateral Date of Exam: 07/06/25 Exam# [id number] Ordering Dr: Melissa Holly DO PROCEDURE: CHEST PA AND LATERAL 07/06/2025 REASON FOR EXAM: COUGH, SOB TECHNIQUE: Procedure Code: RADCXR Modality: DX Procedure: CHEST PA AND LATERAL COMPARISON: Chest x-ray January 29, 2024. Prior report is not available FINDINGS: Lungs: The lungs are symmetrically expanded. Lung volumes are within normal limits. There is no consolidation. Mildly coarsened reticular lung markings again noted likely secondary to chronic interstitial thickening. There is no peribronchial thickening. There is no pulmonary vascular redistribution. Pleura: No significant pleural effusion seen. There is no evidence of pneumothorax. Mediastinum: There is no mediastinal widening or mediastinal shift. Heart: The cardiac silhouette is not enlarged. Javan: The pulmonary javan are not enlarged or retracted. Osseous: No acute fracture is seen. Slight bony deformity along the right lateral mid chest wall likely due to old injuries. RAD/Chest PA and Lateral IMPRESSION: No radiographic evidence of an acute pulmonary infiltrate. - Other findings discussed above. Reading Location: [id number] CC: Dr. Melissa Holly DO; Dr. Americo Borrego MD Wood Inspector: Signed [facility] Electrocardiogram reportOrde red By: Aneudy Mathew on 07-06-2025 EKG study [facility] Cardiovascular Services [address] [place] [address] 12 Lead EKG 07/06/25 1550 MR#: [id number] Acct: [id number] Name: ELIEL SOUZA Rep #:[id number] : 1970 55 From: Aneudy Mathew MD Attending Dr: Status: DEP Sunny R Ordering Dr: Melissa Holly DO Date: 07/06/25 Location: ED Sex: M C Admitted: Test Reason : DYSP Blood Pressure : */* mmHG Vent. Rate : 82 BPM Atrial Rate : 82 BPM P-R Int : 172 ms QRS Dur : 94 ms QT Int : 388 ms P-R-T Axes : 57 89 70 degrees QTcB Int : 453 ms Normal sinus rhythm Normal ECG Confirmed by WILLIAMS MIRANDA, ANEUDY ([id number]), international editorial producer TANESHA ROJO ([id number]) on 07/08/2025 8:28:35 AM Referred By: Confirmed By: ANEUDY MATHEW MD 07/08/25 0828 Date _ Aneudy Mathew MD CC: Dr. Melissa Holly DO; Dr. Americo Borrego MD ~ Signed [facility] Other Emergency Department Summary on 07-06-2025 Emergency Department Summary [facility] Medical Records Department [address] [place] [address] Emergency Department Summary 07/06/25 MR#: [id number] Acct: [id number] Name: ELIEL SOUZA Rep #: [id number] : 1970 55 From: Melissa Holly DO PCP: Dr. Americo Borrego MD Status:REG ER Location: ED HPI History of Present Illness Chief Complaint: Shortness of Breath Informant: patient Narrative Narrative: Patient is a 55-year-old male with history of pneumonia, COPD, obstructive sleep apnea (notes not recently been compliant with his CPAP), hypertension, diabetes mellitus, DVT (not currently on anticoagulation) presenting with worsening shortness of breath and wheezing. Patient states he has had URI symptoms for the past 2 to 4 days. Started with nasal congestion that moved down to sore throat and then settled in his chest. He feels that despite using his nebulizers last night he just could not catch his breath. He denies any fevers. Denies any swelling of his legs. Denies any chest pain. States he is coughing and it is a wet cough but is not getting it up appropriately. Because he could not catch his breath EMS was called and he came to the emergency room. He notes that he used to be able to call his doctor and get a prescription for prednisone when these things happen (he states this feels like a COPD exacerbation) but now he has to be seen and he has not been able to get in. Denies any associated nausea, vomiting or change in bowel movements.'s are for any urinary symptoms. As he is having some mild abdominal pain but feels more like it sore from coughing a lot. No other complaints or concerns per at this time. [facility] Medical History Diverticulitis Femur fracture Rib fracture H. pylori infection Cholecystitis Fatty liver Depression BPH (benign prostatic hyperplasia) DVT (deep venous thrombosis) GERD (gastroesophageal reflux disease) Diverticula of colon HTN (hypertension) COPD (chronic obstructive pulmonary disease) Diabetes mellitus Home Medications ???Medication ???Instructions ???Recorded ???Last Taken ???Type albuterol sulfate 2.5 mg/3 mL 2.5 mg inhalation Q6H PRN PRN Sob 01/03/16 11/18/16 04:00 History (0.083 %) solution for nebulization /Or Wheezing atorvastatin 40 mg tablet 40 mg PO QHS 01/03/16 08/05/19 His tory citalopram 20 mg tablet 30 mg PO DAILY 01/03/16 08/06/19 H istory glimepiride 2 mg tablet 2 mg PO DAILY 01/03/16 08/06/19 Hi story lisinopril 10 mg tablet 10 mg PO DAILY 01/03/16 08/06/19 H istory fluticasone furoate 100 1 ea IH DAILY ##1 05/25/16 9 Rx mcg-vilanterol 25 mcg/dose inhalation powder (Breo Ellipta) albuterol sulfate 90 mcg/actuation 2 puff inhalation Q2H PRN PRN 08/06/19 Rx aerosol inhaler (Ventolin HFA) COUGH/WHEEZE ##0 insulin detemir U-100 100 unit/mL 50 units subcut QHS 08/06/1907/18 History (3 mL) subcutaneous pen omeprazole 40 mg capsule,delayed 40 mg PO BID 08/06/19 08/06/19 His tory release ibuprofen 800 mg tablet 800 mg PO Q8H PRN Pain 1-10 Or Unknown History Fever loperamide 2 mg capsule (Imodium 2 mg PO Q4H PRN loose stool #10 Unknown Rx A-D) caps empagliflozin 25 mg tablet 25 mg PO DAILY 05/14/24 Unknown Hi story (Jardiance) insulin lispro 100 unit/mL 30 unit subcut QPM 05/14/24 Unknow n History subcutaneous pen ondansetron 4 mg disintegrating 4 mg PO Q8H PRN PRN Nausea #14 tab s 05/14/24 Unknown Rx tablet azithromycin 250 mg tablet See Rx Instructions PO .COMPLEX #6 07/06/25 Unknown Rx tabs prednisone 20 mg tablet 40 mg (2 x 20 mg) PO DAILY #8 tabs 07/06/25 Unknown Rx Allergy/AdvReac Type Severity Reaction Status Date / Time No Known Allergies Allergy Verified 05/14/24 20:15 Social History household members: none Smoking Status: Former smoker substance use type: does not use ROS ROS ED Constitutional Constitutional ED: Denies chills or fever(s) Cardiovascular Cardiovascular: Denies chest pain or palpitations Respiratory/Chest Respiratory/Chest: Reports cough, dyspnea and sputum Gastrointestinal Gastrointestinal: Reports abdominal pain; Denies diarrhea, nausea or vomiting Musculoskeletal Musculoskeletal: Denies arthralgias or myalgias Integumentary Denies rash Neurologic Neurologic: Denies weakness Hematologic/Lymphati c Hematologic/Lymphati c: Denies easy bleeding or easy bruising EXAM Physical Exam Const Vital Signs: 07/06/25 15:02 07/06/25 15:02 07/06/25 15:07 Temperature 97.7 F L 97.7 F L Temperature Source Oral Oral Pulse Rate 80 80 Respiratory Rate 20 H 20 H Respiratory Effort Short of Breath Respiratory Depth Norm (more content not included)... Normal [facility] CNOVon 04-12-2025 [facility] Office Visit (FAMPWS) ELIEL SOUZA ([id number]) 1970 M Date Time Provider Department 04/12/25 11:40 AM AMERICO BORREGO FAMPWS During your visit [...] and Jardiance 25 mg daily. [facility] HTN: Denies checking BP at home. No [...] tx as needed. Not following with any field contact technician's. Does get Shortness of Breath if he [...] HISTORY Diagnosis Date CAD (coronary artery disease), [place] coronary artery 2014 No PCI indicated. 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 Previous Surgical History PAST SURGICAL HISTORY Procedure Laterality Date COLONOSCOPY FLX DX W/COLLJ SPEC WHEN PFRMD 11/04/10 Normal colon COLONOSCOPY FLX DX W/COLLJ SPEC WHEN PFRMD 01/21/16 few diverticula EGD TRANSORAL BIOPSY SINGLE/MULTIPLE 11/04/10 duodenitis EGD TRANSORAL BIOPSY SINGLE/MULTIPLE 01/21/16 minimal gastritis EXC TUMOR SUBQ [facility],PERCUTANEOUS 2013 Cardiac cath, L [...] day. insul (more content not included)... Normal [facility] Comprehensive metabolic 2000 panelon 04-06-2025 Albumin [Mass/Vol] 4.4 g/dL Normal 3.9-4.9 [facility] Comment on above: Order Comment: Speci men Type: BLOOD SPECIMENOrdering Facility: [facility] Address: [address] [id number] Performed By: #### 2 4331-1, ####[facility] LABCLIA [id number] [place] [address] [place] ALP [Catalytic activity/Vol] 106 U/L Normal 38-113 [facility] Comment on above: Order Comment: Speci men Type: BLOOD SPECIMENOrdering Facility: [facility] Address: [address] [id number] Performed By: #### 2 4331-1, ####[facility] LABCLIA [id number] [address] [address] [place] ALT [Catalytic activity/Vol] 44 U/L Normal 10-54 [facility] Comment on above: Order Comment: Speci men Type: BLOOD SPECIMENOrdering Facility: [facility] Address: [address] [place] [address] Performed By: #### 2 4331-1, 20567-8 ####[facility] LABCLIA [id number] [address] [place] [address] [place] Anion gap [Moles/Vol] 15 mmol/L Normal 8-15 [facility] Comment on above: Order Comment: Speci men Type: BLOOD SPECIMENOrdering Facility: [facility] Address: [address] [place], [place] [address] Performed By: #### 2 4331-1, 25554-3 ####[facility] LABCLIA [id number] [address] [address] [place] AST [Catalytic activity/Vol] 38 U/L Normal 14-40 [facility] Comment on above: Order Comment: Speci men Type: BLOOD SPECIMENOrdering Facility: [facility] Address: [address] [place], [place] [address] Performed By: #### 2 4331-1, ####[facility] LABCLIA [id number] [address] [address] [place] Bilirubin [Mass/Vol] 0.7 mg/dL Normal 0.2-1.3 [facility] Comment on above: Order Comment: Speci men Type: BLOOD SPECIMENOrdering Facility: [facility] Address: [address] [place] [address] Performed By: #### 2 4331-1, 26991-7 ####[facility] LABCLIA [id number] [address] [address] [place] Calcium [Mass/Vol] 10.1 mg/dL Normal 8.5-10.2 [facility] Comment on above: Order Comment: Speci men Type: BLOOD SPECIMENOrdering Facility: [facility] Address: [address] [place] [address] Performed By: #### 2 4331-1, 44347-2 ####[facility] LABCLIA [id number] [address] [address] [place] Chloride [Moles/Vol] 99 mmol/L Normal 98-107 [facility] Comment on above: Order Comment: Speci men Type: BLOOD SPECIMENOrdering Facility: [facility] Address: [address] [place] [address] Performed By: #### 2 4331-1, 03348-3 ####[facility] LABIA [id number] [place] [id number] [place] CO2 [Moles/Vol] 20 mmol/L Low 22-30 [facility] Comment on above: Order Comment: Speci men Type: BLOOD SPECIMENOrdering Facility: [facility] Address: [address] [place] [address] Performed By: #### 2 4331-1, 30630-1 ####[facility] LABCLIA [id number] [address] [address] [place] Creatinine [Mass/Vol] 0.60 mg/dL Low 0.73-1.22 [facility] Comment on above: Order Comment: Speci men Type: BLOOD SPECIMENOrdering Facility: [facility] Address: [address] [place] [address] Performed By: #### 2 4331-1, 89063-8 ####[facility] LABIA [id number] [address] [address] [place] Creatinine and Glomerular filtration rate.predicted panel (S/P/Bld) 113 mL/min/1.73m??? Normal >=60 [facility] Comment on above: Order Comment: Speci men Type: BLOOD SPECIMENOrdering Facility: [facility] Address: [address] [place] [address] Result Comment: Tia mated Glomerular Filtration Rate [...] reflect actual GFR. Performed By: #### 2 4331-, ####[facility] LABCLIA [id number] [address] [address] [place] Glucose [Mass/Vol] 245 mg/dL High 74-99 [facility] Comment on above: Order Comment: Osmin lopez Type: BLOOD SPECIMENOrdering Facility: [facility] Address: [address] [place] [address] Result Comment: The [place] Diabetes Association (ADA) provides guidance for cutoff [...] Standards of Medical Care in Diabetes 2016, [place] Diabetes Association. Diabetes Care. 2016.39(Suppl 1). Performed By: #### 2 433-, ####[facility] LABCLIA [id number] [address] [address] [place] Potassium [Moles/Vol] 5.1 mmol/L Normal 3.7-5.1 [facility] Comment on above: Order Comment: Osmin lopez Type: BLOOD SPECIMENOrdering Facility: [facility] Address: [address] [place] [address] Performed By: #### 2 433-, ####[facility] LABCLIA [id number] [address] [address] [place] Protein [Mass/Vol] 8.0 g/dL Normal 6.3-8.0 [facility] Comment on above: Order Comment: Speci men Type: BLOOD SPECIMENOrdering Facility: [facility] Address: [address] [place] [address] Performed By: #### 2 4331-1, ####[facility] LABCLIA [id number] [facility] [address] [address] [place] Sodium [Moles/Vol] 134 mmol/L Low 136-144 [facility] Comment on above: Order Comment: Speci men Type: BLOOD SPECIMENOrdering Facility: [facility] Address: [address] [place] [address] Performed By: #### 2 4331-1, ####[facility] LABCLIA [id number] [place] [address] [place] Urea nitrogen [Mass/Vol] 24 mg/dL Normal 9-24 [facility] Comment on above: Order Comment: Speci men Type: BLOOD SPECIMENOrdering Facility: [facility] Address: [address] [place] [address] Performed By: #### 2 4331-1, ####[facility] LABCLIA [id number] [facility] [address] [place] [address] [place] HbA1c (Bld)on 04-06-2025 Average glucose Estimated from glycated hemoglobin (Bld) [Mass/Vol] 174 mg/dL Normal [facility] Comment on above: Order Comment: Speci men Type: BLOOD SPECIMENOrdering Facility: [facility] Address: [address] [place] [address] Result Comment: eAG: (Estimated average glucose) is a calculated value from HgbA1c and is loan representative of the average blood glucose level in the last 2-3 month period. Performed By: #### 5 5454-3 ####[facility] LABCLIA [id number] [address] [place] [address] [place] HbA1c (Bld) [Mass fraction] 7.7 % High 4.3-5.6 [facility] Comment on above: Order Comment: Osmin lopez Type: BLOOD SPECIMENOrdering Facility: [facility] Address: [address] [place] [address] Result Comment: [place] Diabetes Association guidelines indicate that patients with HgbA1c in the range 5.7-6.4% are at increased risk for development of diabetes, and intervention by lifestyle modification may be beneficial. HgbA1c greater or equal to 6.5% is considered diagnostic of diabetes. Performed By: #### 5 5454-3 ####[facility] LABCLIA [id number] [place] [id number] [facility] Lipid 1996 panelon 5 Cholesterol [Mass/Vol] 201 mg/dL High <200 [facility] Comment on above: Order Comment: Osmin lopez Type: BLOOD SPECIMENOrdering Facility: [facility] Address: [address] [place] [address] Result Comment: <200 mg/dL, Desirable 200-239 mg/dL, Borderline high >239 mg/dL, High Performed By: #### 2 4331-1, 53795-6 ####[facility] LABCLIA [id number] [address] [place] [address] [place] [facility] Cholesterol in HDL [Mass/Vol] 29 mg/dL Low >39 [facility] Comment on above: Order Comment: Osmin lopez Type: BLOOD SPECIMENOrdering Facility: [facility] Address: [address] [place] [address] Result Comment: 40-5 9 mg/dL, Acceptable >59 mg/dL, High: Negative risk factor for coronary heart disease <40 mg/dL, Low: Positive risk factor for coronary heart disease Performed By: #### 2 4331-1, 09285-3 ####[facility] LABCLIA [id number] [address] [place] [address] [facility] Cholesterol in LDL [Mass/Vol] 116 mg/dL High <100 [facility] Comment on above: Order Comment: Osmin men Type: BLOOD SPECIMENOrdering Facility: [facility] Address: [address] [place] [address] Result Comment: <100 mg/dL, Optimal 100-129 mg/dL, Near optimal/above optimal 130-159 mg/dL, Borderline high 160-189 mg/dL, High >189 mg/dL, Very high Secondary prevention optimal LDL Cholesterol levels are recommended to be <70 mg/dL LDL cholesterol is calculated using the Baig-NIH equation. Performed By: #### 2 433-, ####[facility] LABCLIA [id number] [address] [address] [place] Cholesterol in LDL/Cholesterol in HDL [Mass ratio] 4.00 {ratio} High <2.54 [facility] Comment on above: Order Comment: Osmin men Type: BLOOD SPECIMENOrdering Facility: [facility] Address: [address] [place] [address] Result Comment: Refe rence: 1. National Cholesterol Education Program ATP III Guideline At-A-Glance Quick Desk Reference: National Heart, Lung, and Blood [place]. National Institutes of Health. 2001: NIH Publication No. 01-3305. 2. An International Atherosclerosis Society position paper: global recommendations for the management of dyslipidemia: executive summary, Atherosclerosis. 2014: 232(2):410-413. Performed By: #### 2 433-, ####[facility] LABCLIA [id number] [address] [address] [place] Cholesterol in VLDL [Mass/Vol] 55 mg/dL High <30 [facility] Comment on above: Order Comment: Manni john Type: BLOOD SPECIMENOrdering Facility: [facility] Address: [address] [place] [address] Performed By: #### 2 433-, ####[facility] LABCLIA [id number] [address] [address] [place] Cholesterol non HDL [Mass/Vol] 172 mg/dL High <130 [facility] Comment on above: Order Comment: Speci men Type: BLOOD SPECIMENOrdering Facility: [facility] Address: [address] [place] [address] Result Comment: <130 mg/dL, Optimal 130-159 mg/dL, Near optimal/above optimal 160-189 mg/dL, Borderline high 190-219 mg/dL, High >219 mg/dL, Very high Secondary prevention optimal non HDL Cholesterol levels are recommended to be <100 mg/dL Performed By: #### 2 4331-1, 91188-8 ####[facility] LABCLIA [id number] [place] [address] [place] Cholesterol.total/Cholest domenic in HDL [Mass ratio] 6.93 {ratio} High <5.10 [facility] Comment on above: Order Comment: Speci men Type: BLOOD SPECIMENOrdering Facility: [facility] Address: [address] [place] [address] Performed By: #### 2 433-1, 27442-9 ####[facility] LABCLIA [id number] [place] [address] [place] FASTING TIME 10 hrs Normal [facility] Comment on above: Order Comment: Speci men Type: BLOOD SPECIMENOrdering Facility: [facility] Address: [address] [place] [address] Performed By: #### 2 4331-1, 20148-7 ####[facility] LABCLIA [id number] [place] [id number] [place] Triglyceride [Mass/Vol] 318 mg/dL High <150 [facility] Comment on above: Order Comment: Speci men Type: BLOOD SPECIMENOrdering Facility: [facility] Address: [address] [place] [address] Result Comment: <150 mg/dL, Normal 150-199 mg/dL, Borderline high 200-499 mg/dL, High >499 mg/dL, Very high Performed By: #### 2 433-1, 93595-4 ####[facility] LABCLIA [id number] JIGAR ROSALES [address] [address] [place] CNOVon 01-08-2025 CNOV Office Visit (FAMPWS) ELIEL SOUZA ([id number]) 1970 M Date Time Provider Department 01/08/25 11:00 AM [facility] today, we recorded [...] HISTORY Diagnosis Date CAD (coronary artery disease), [place] coronary artery 2014 No PCI indicated. 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 Take (more content not included)... Normal [facility] CBC W Auto Differential pane l (Bld)on 12-22-2024 Basophils (Bld) [#/Vol] 0.07 10*3/uL Normal <0.11 [facility] Comment on above: Order Comment: Speci men Type: BLOOD SPECIMENOrdering Facility: [facility] Address: [address] [place] [address] Performed By: #### 5 7021-8 ####[facility] LABCLIA [id number] [place] [address] [place] Basophils/100 WBC (Bld) 0.9 % Normal [facility] Comment on above: Order Comment: Speci men Type: BLOOD SPECIMENOrdering Facility: [facility] Address: [address] [place] [address] Performed By: #### 5 7021-8 ####[facility] LABCLIA [id number] [place] [address] [place] Differential cell count method Nom (Bld) Auto Normal [facility] Comment on above: Order Comment: Speci men Type: BLOOD SPECIMENOrdering Facility: [facility] Address: [address] [place] [address] Performed By: #### 5 7021-8 ####[facility] LABCLIA [id number] [address], [place] [address] [place] Eosinophils (Bld) [#/Vol] 0.40 10*3/uL Normal <0.46 [facility] Comment on above: Order Comment: Speci men Type: BLOOD SPECIMENOrdering Facility: [facility] Address: [address] [place] [address] Performed By: #### 5 7021-8 ####[facility] LABCLIA [id number] [address], [place] [address] [place] Eosinophils/100 WBC (Bld) 5.3 % Normal [facility] Comment on above: Order Comment: Speci men Type: BLOOD SPECIMENOrdering Facility: [facility] Address: [address] [place] [address] Performed By: #### 5 7021-8 ####[facility] LABCLIA [id number] [address], [place] [address] [place] Erythrocyte distribution width (RBC) [Ratio] 13.2 % Normal 11.5-15.0 [facility] Comment on above: Order Comment: Speci men Type: BLOOD SPECIMENOrdering Facility: [facility] Address: [address] [place] [address] Performed By: #### 5 7021-8 ####[facility] LABCLIA [id number] [address], [place] [address] [place] Hematocrit (Bld) [Volume fraction] 50.0 % Normal 39.0-51.0 [facility] Comment on above: Order Comment: Speci men Type: BLOOD SPECIMENOrdering Facility: [facility] Address: [address] [place] [address] Performed By: #### 5 7021-8 ####[facility] LABCLIA [id number] [address], [facility] [place] Hemoglobin (Bld) [Mass/Vol] 16.7 g/dL Normal 13.0-17.0 [facility] Comment on above: Order Comment: Speci men Type: BLOOD SPECIMENOrdering Facility: [facility] Address: [address] [place] [address] Performed By: #### 5 7021-8 ####[facility] LABCLIA [id number] [place] [address] [place] Immature granulocytes (Bld) [#/Vol] 0.05 10*3/uL Normal <0.10 [facility] Comment on above: Order Comment: Speci men Type: BLOOD SPECIMENOrdering Facility: [facility] Address: [address] [place] [address] Performed By: #### 5 7021-8 ####[facility] LABCLIA [id number] [place] [address] [place] Immature granulocytes/100 WBC (Bld) 0.7 % Normal [facility] Comment on above: Order Comment: Speci men Type: BLOOD SPECIMENOrdering Facility: [facility] Address: [address] [place] [address] Performed By: #### 5 7021-8 ####[facility] LABCLIA [id number] [place] [address] [place] Lymphocytes (Bld) [#/Vol] 2.93 10*3/uL Normal 1.00-4.0 0 [facility] Comment on above: Order Comment: Speci men Type: BLOOD SPECIMENOrdering Facility: [facility] Address: [address] [place] [address] Performed By: #### 5 7021-8 ####[facility] LABCLIA [id number] [place] [address] [place] Lymphocytes/100 WBC (Bld) 39.2 % Normal [facility] Comment on above: Order Comment: Speci men Type: BLOOD SPECIMENOrdering Facility: [facility] Address: [address] [place] [address] Performed By: #### 5 7021-8 ####[facility] LABIA [id number] [address] [facility] MCH (RBC) [Entitic mass] 28.9 pg Normal 26.0-34.0 [facility] Comment on above: Order Comment: Speci men Type: BLOOD SPECIMENOrdering Facility: [facility] Address: [address] [place] [address] Performed By: #### 5 7021-8 ####[facility] LABIA [id number] [place] [address] [place] MCHC (RBC) [Mass/Vol] 33.4 g/dL Normal 30.5-36.0 [facility] Comment on above: Order Comment: Speci men Type: BLOOD SPECIMENOrdering Facility: [facility] Address: [address] [place] [address] Performed By: #### 5 7021-8 ####[facility] [id number] [place] [address] [place] MCV (RBC) [Entitic vol] 86.7 fL Normal 80.0-100.0 [facility] Comment on above: Order Comment: Speci men Type: BLOOD SPECIMENOrdering Facility: [facility] Address: [address] [place] [address] Performed By: #### 5 7021-8 ####[facility] LABIA [id number] [place] [address] [place] Monocytes (Bld) [#/Vol] 0.46 10*3/uL Normal <0.87 [facility] Comment on above: Order Comment: Speci men Type: BLOOD SPECIMENOrdering Facility: [facility] Address: [address] [place] [address] Performed By: #### 5 7021-8 ####[facility] LABIA [id number] [address] [place] [address] [place] Monocytes/100 WBC (Bld) 6.1 % Normal [facility] Comment on above: Order Comment: Speci men Type: BLOOD SPECIMENOrdering Facility: [facility] Address: [address] [place] [address] Performed By: #### 5 7021-8 ####[facility] LABCLIA [id number] [address], [place] [address] [place] Neutrophils (Bld) [#/Vol] 3.57 10*3/uL Normal 1.45-7.5 0 [facility] Comment on above: Order Comment: Speci men Type: BLOOD SPECIMENOrdering Facility: [facility] Address: [address] [place] [address] Performed By: #### 5 7021-8 ####[facility] LABCLIA [id number] [place] [address] [place] Neutrophils/100 WBC (Bld) 47.8 % Normal [facility] Comment on above: Order Comment: Speci men Type: BLOOD SPECIMENOrdering Facility: [facility] Address: [address] [place] [address] Performed By: #### 5 7021-8 ####[facility] LABCLIA [id number] [place] [address] [place] Nucleated RBC (Bld) [#/Vol] 10*3/uL Normal <0.01 [facility] Comment on above: Order Comment: Speci men Type: BLOOD SPECIMENOrdering Facility: [facility] Address: [address] [place] [address] Performed By: #### 5 7021-8 ####[facility] LABCLIA [id number] [place] [id number] [place] Nucleated RBC/100 WBC (Bld) [Ratio] 0.0 /100 WBC Normal [facility] Comment on above: Order Comment: Speci men Type: BLOOD SPECIMENOrdering Facility: [facility] Address: [address] [place] [address] Performed By: #### 5 7021-8 ####[facility] LABCLIA [id number] [place] [address] [place] Platelet mean volume (Bld) [Entitic vol] 12.2 fL Normal 9.0-12.7 [facility] Comment on above: Order Comment: Speci men Type: BLOOD SPECIMENOrdering Facility: [facility] Address: [address] [place] [address] Performed By: #### 5 7021-8 ####[facility] LABIA [id number] [place] [address] [place] Platelets (Bld) [#/Vol] 135 10*3/uL Low 150-400 [facility] Comment on above: Order Comment: Speci men Type: BLOOD SPECIMENOrdering Facility: [facility] Address: [address] [place] [address] Performed By: #### 5 7021-8 ####[facility] LABIA [id number] [place] [address] [place] RBC (Bld) [#/Vol] 5.77 10*6/uL Normal 4.20-6.00 [facility] Comment on above: Order Comment: Speci men Type: BLOOD SPECIMENOrdering Facility: [facility] Address: [address] [place] [address] Performed By: #### 5 7021-8 ####[facility] LABCLIA [id number] [place] [id number] [place] WBC (Bld) [#/Vol] 7.48 10*3/uL Normal 3.70-11.00 [facility] Comment on above: Order Comment: Speci men Type: BLOOD SPECIMENOrdering Facility: [facility] Address: [address] [place] [address] Performed By: #### 5 7021-8 ####[facility] LABCLIA [id number] [facility] [address] [address] [place] Cholesterol in LDL Direct as say [Mass/Vol]on 12-22-2024 Cholesterol in LDL [Mass/Vol] 65 mg/dL Normal <100 [facility] Comment on above: Order Comment: Speci men Type: BLOOD SPECIMENOrdering Facility: [facility] Address: [address] [place] [address] Result Comment: <100 mg/dL, Optimal 100-129 mg/dL, Near optimal/above optimal 130-159 mg/dL, Borderline high 160-189 mg/dL, High >189 mg/dL, Very high Secondary prevention optimal LDL Cholesterol levels are recommended to be < 70 mg/dL Performed By: #### 2 4331-1, 65211-4, ####[facility] LABCLIA [id number] [address] [address] [place] Cholesterol in VLDL [Mass/Vol] 62 mg/dL High <30 [facility] Comment on above: Order Comment: Speci men Type: BLOOD SPECIMENOrdering Facility: [facility] Address: [address] [place] [address] Performed By: #### 2 4331-1, 57086-5, ####[facility] LABCLIA [id number] [facility] [address] [address] [place] Comprehensive metabolic 2000 panelon 12-22-2024 Albumin [Mass/Vol] 4.0 g/dL Normal 3.9-4.9 [facility] Comment on above: Order Comment: Speci men Type: BLOOD SPECIMENOrdering Facility: [facility] Address: [address] [place] [address] Performed By: #### 2 4331-1, , ####[facility] LABCLIA [id number] [address] [address] [place] ALP [Catalytic activity/Vol] 109 U/L Normal 38-113 [facility] Comment on above: Order Comment: Speci men Type: BLOOD SPECIMENOrdering Facility: [facility] Address: [address] [place], [place] [address] Performed By: #### 2 4331-1, , ####[facility] LABCLIA [id number] [address] [address] [place] ALT [Catalytic activity/Vol] 27 U/L Normal 10-54 [facility] Comment on above: Order Comment: Speci men Type: BLOOD SPECIMENOrdering Facility: [facility] Address: [address] [place], [place] [address] Performed By: #### 2 4331-1, , ####[facility] LABCLIA [id number] [place] [id number] [place] Anion gap [Moles/Vol] 11 mmol/L Normal 8-15 [facility] Comment on above: Order Comment: Speci men Type: BLOOD SPECIMENOrdering Facility: [facility] Address: [address] [place], [place] [address] Performed By: #### 2 4331-1, , ####[facility] LABIA [id number] [place] [id number] [place] AST [Catalytic activity/Vol] 26 U/L Normal 14-40 [facility] Comment on above: Order Comment: Speci men Type: BLOOD SPECIMENOrdering Facility: [facility] Address: [address] [place], [place] [address] Performed By: #### 2 4331-1, , ####[facility] LABCLIA [id number] [address] [address] [place] Bilirubin [Mass/Vol] 0.5 mg/dL Normal 0.2-1.3 [facility] Comment on above: Order Comment: Speci men Type: BLOOD SPECIMENOrdering Facility: [facility] Address: [address] [place], [place] [address] Performed By: #### 2 4331-1, 13232-1, ####[facility] LABCLIA [id number] [address] [address] [place] Calcium [Mass/Vol] 9.7 mg/dL Normal 8.5-10.2 [facility] Comment on above: Order Comment: Speci men Type: BLOOD SPECIMENOrdering Facility: [facility] Address: [address] [place], [place] [address] Performed By: #### 2 4331-1, 83893-6, ####[facility] LABCLIA [id number] [place] [id number] [place] Chloride [Moles/Vol] 101 mmol/L Normal 98-107 [facility] Comment on above: Order Comment: Speci men Type: BLOOD SPECIMENOrdering Facility: [facility] Address: [address] [place], [place] [address] Performed By: #### 2 4331-1, , ####[facility] LABIA [id number] [place] [id number] [place] CO2 [Moles/Vol] 27 mmol/L Normal 22-30 [facility] Comment on above: Order Comment: Speci men Type: BLOOD SPECIMENOrdering Facility: [facility] Address: [address] [place], [place] [address] Performed By: #### 2 4331-1, 13402-8, ####[facility] LABIA [id number] [address] [address] [place] Creatinine [Mass/Vol] 0.56 mg/dL Low 0.73-1.22 [facility] Comment on above: Order Comment: Speci men Type: BLOOD SPECIMENOrdering Facility: [facility] Address: [address] [place], [place] [address] Performed By: #### 2 4331-1, 11528-8, 60181-4 ####[facility] LABIA [id number] [place] [id number] [place] Creatinine and Glomerular filtration rate.predicted panel (S/P/Bld) 116 mL/min/1.73m??? Normal >=60 [facility] Comment on above: Order Comment: Osmin lopez Type: BLOOD SPECIMENOrdering Facility: [facility] Address: [address] [place] [address] Result Comment: Tia mated Glomerular Filtration Rate [...] actual GFR. Performed By: #### 2 4331-1, 37258-2, 04737-2 ####[facility] LABIA [id number] [place] [id number] [place] Glucose [Mass/Vol] 199 mg/dL High 74-99 [facility] Comment on above: Order Comment: Osmin lopez Type: BLOOD SPECIMENOrdering Facility: [facility] Address: [address] [place] [address] Result Comment: The [place] Diabetes Association (ADA) provides guidance for cutoff [...] Standards of Medical Care in Diabetes 2016, [place] Diabetes Association. Diabetes Care. 2016.39(Suppl 1). Performed By: #### 2 4331-1, 16197-3, ####[facility] LABCLIA [id number] [address] [address] [place] Potassium [Moles/Vol] 4.3 mmol/L Normal 3.7-5.1 [facility] Comment on above: Order Comment: Speci men Type: BLOOD SPECIMENOrdering Facility: [facility] Address: [address] [place], [place] [address] Performed By: #### 2 4331-1, 70745-9, ####[facility] LABCLIA [id number] [address] [address] [place] Protein [Mass/Vol] 7.4 g/dL Normal 6.3-8.0 [facility] Comment on above: Order Comment: Speci men Type: BLOOD SPECIMENOrdering Facility: [facility] Address: [address] [place], [place] [address] Performed By: #### 2 4331-1, , ####[facility] LABCLIA [id number] [address] [address] [place] Sodium [Moles/Vol] 139 mmol/L Normal 136-144 [facility] Comment on above: Order Comment: Speci men Type: BLOOD SPECIMENOrdering Facility: [facility] Address: [address] [place] [address] Performed By: #### 2 4331-1, , ####[facility] LABCLIA [id number] [address] [address] [place] Urea nitrogen [Mass/Vol] 15 mg/dL Normal 9-24 [facility] Comment on above: Order Comment: Speci men Type: BLOOD SPECIMENOrdering Facility: [facility] Address: [address] [place] [address] Performed By: #### 2 4331-1, , ####[facility] LABCLIA [id number] [address] [place] HbA1c (Bld)on 12-22-2024 Average glucose Estimated from glycated hemoglobin (Bld) [Mass/Vol] 186 mg/dL Normal [facility] Comment on above: Order Comment: Osmin lopez Type: BLOOD SPECIMENOrdering Facility: [facility] Address: [address] [place] [address] Result Comment: eAG: (Estimated average glucose) is a calculated value from HgbA1c and is loan representative of the average blood glucose level in the last 2-3 month period. Performed By: #### 5 5454-3 ####[facility] LABIA [id number] [address] HbA1c (Bld) [Mass fraction] 8.1 % High 4.3-5.6 [facility] Comment on above: Order Comment: Osmin lopez Type: BLOOD SPECIMENOrdering Facility: [facility] Address: [address] [place] [address] Result Comment: [place] Diabetes Association guidelines indicate that patients with HgbA1c in the range 5.7-6.4% are at increased risk for development of diabetes, and intervention by lifestyle modification may be beneficial. HgbA1c greater or equal to 6.5% is considered diagnostic of diabetes. Performed By: #### 5 5454-3 ####[facility] LABIA [id number] [address] OF [facility] Lipid 1996 panelon 5 Cholesterol [Mass/Vol] 154 mg/dL Normal <200 [facility] Comment on above: Order Comment: Osmin lopez Type: BLOOD SPECIMENOrdering Facility: [facility] Address: [address] [place] [address] Result Comment: <200 mg/dL, Desirable 200-239 mg/dL, Borderline high >239 mg/dL, High Performed By: #### 2 4331-1, 37450-0, 24999-5 ####[facility] LABCLIA [id number] [address] [address] [facility] [place] Cholesterol in HDL [Mass/Vol] 27 mg/dL Low >39 [facility] Comment on above: Order Comment: Speci men Type: BLOOD SPECIMENOrdering Facility: [facility] Address: [address] [place] [address] Result Comment: 40-5 9 mg/dL, Acceptable >59 mg/dL, High: Negative risk factor for coronary heart disease <40 mg/dL, Low: Positive risk factor for coronary heart disease Performed By: #### 2 4331-1, 88939-3, 37906-3 ####[facility] LABCLIA [id number] [address] Cholesterol in LDL [Mass/Vol] Normal [facility] Comment on above: Order Comment: Speci men Type: BLOOD SPECIMENOrdering Facility: [facility] Address: [address] [place] [address] Result Comment: Unab le to calculate due to increased Triglycerides. See LDL-Chol, Direct. Performed By: #### 2 4331-1, 95113-9, 47075-5 ####[facility] LABCLIA [id number] [place] [id number] [facility] Cholesterol in LDL/Cholesterol in HDL [Mass ratio] Normal [facility] Comment on above: Order Comment: Speci men Type: BLOOD SPECIMENOrdering Facility: [facility] Address: [address] [place] [address] Result Comment: Unab le to calculate due to elevated Triglycerides. Reference: 1. National Cholesterol Education Program ATP III Guideline At-A-Glance Quick Desk Reference: National Heart, Lung, and Blood [place]. National Institutes of Health. 2001: NIH Publication No. 01-3305. 2. An International Atherosclerosis Society position paper: global recommendations for the management of dyslipidemia: executive summary, Atherosclerosis. 2014: 232(2):410-413. Performed By: #### 2 4331-1, 23256-9, 10767-3 ####[facility] LABCLIA [id number] [address] [place] [address] [place] Cholesterol in VLDL [Mass/Vol] Normal [facility] Comment on above: Order Comment: Speci men Type: BLOOD SPECIMENOrdering Facility: [facility] Address: [address] [place] [id number] Result Comment: Unab le to calculate due to increased Triglycerides. See LDL-Chol, Direct. Performed By: #### 2 4331-1, 94685-3, ####[facility] LABCLIA [id number] [address] [place] [address] [place] Cholesterol non HDL [Mass/Vol] 127 mg/dL Normal <130 [facility] Comment on above: Order Comment: Speci men Type: BLOOD SPECIMENOrdering Facility: [facility] Address: [address] [place] [address] Result Comment: <130 mg/dL, Optimal 130-159 mg/dL, Near optimal/above optimal 160-189 mg/dL, Borderline high 190-219 mg/dL, High >219 mg/dL, Very high Secondary prevention optimal non HDL Cholesterol levels are recommended to be <100 mg/dL Performed By: #### 2 4331-1, 93305-6, ####[facility] LABCLIA [id number] [address] [address] [place] Cholesterol.total/Cholest domenic in HDL [Mass ratio] 5.70 {ratio} High <5.10 [facility] Comment on above: Order Comment: Speci men Type: BLOOD SPECIMENOrdering Facility: [facility] Address: [address] [place] [id number] Performed By: #### 2 4331-1, 70904-1, ####[facility] LABCLIA [id number] [address] [address] [place] FASTING TIME 12 hrs Normal [facility] Comment on above: Order Comment: Speci men Type: BLOOD SPECIMENOrdering Facility: [facility] Address: [address] [place], [place] [address] Performed By: #### 2 4331-1, 42879-7, 22446-1 ####[facility] LABIA [id number] [address] [address] [place] [facility] Triglyceride [Mass/Vol] 594 mg/dL High <150 [facility] Comment on above: Order Comment: Speci men Type: BLOOD SPECIMENOrdering Facility: [facility] Address: [address] [place] [address] Result Comment: <150 mg/dL, Normal 150-199 mg/dL, Borderline high 200-499 mg/dL, High >499 mg/dL, Very high Performed By: #### 2 4331-1, 46269-8, 28058-5 ####[facility] LABCLIA [id number] [place] [id number] [facility] [place] Javy 12-10-2024 [place] Telephone (ADMWST) ELIEL SOUZA ([id number]) 1970 M Date Time Provider Department 12/10/24 DEAN GOLDBERG During your visit today, we recorded the following information about you: Brendon Villareal 12/10/2024 1:36 PM Signed Patient called asking for medication refills. Mentioned Albuterol and Lisinopril. Also mentioned one other but I could not find that in his records. Dean Goldberg APRN.CNP 12/10/2024 1:38 PM Signed Does he need albuterol nebulizer solution or inhaler? What was the name of the third medication that he was requesting? Dean Goldberg APRN.SALES SUPPORT COORDINATOR Allergies As of Date: 12/10/2024 (No Known [...] with hyperglycemia, wi* Coronary artery disease involving [place]land*07/05/2014 Obstructive sleep apnea treated with BiPAP [...] [D69.6] 03/29/2023 (more content not included)... Normal [facility]NPNon [facility]20[facility] ELIEL SOUZA ([id number]) 1970 [place] Date Time Provider Department 08/27/24 [facility] During your visit today, we recorded the following information about you: Mary Jane Wade RN 08/27/2024 1:27 PM Signed Phong pharmacist @ [facility] calling to let provider know that Levemir has been discontinued. He is asking for new script for alternative. He mentioned Jaylin Cintron. Please review and advise. CASH Diggs Mark D, MD 08/27/2024 6:12 PM Signed Benytus caryn Borrego MD Allergies As of Date: 08/27/2024 [...] with hyperglycemia, wi* Coronary artery disease involving [place]land*07/05/2014 Obstructive sleep apnea treated with BiPAP [...] Nicotine use (more content not included)... Normal [facility] CNOVon 08-24-2024 CNOV Office Visit (FAMPWS) GONZALOELIEL ([id number]) 1970 M Date Time Provider Department 08/24/24 10:40 AM [facility] FAMPWS During your visit today, we recorded the following information about you: Pulse Respiration Blood pressure Weight 68/minute 18/minute 110/70 126.5 kg Americo Borrego MD 08/24/2024 10:53 AM Signed Chief Complaint Patient presents with: F/U 3 Month HPI Eliel Jake Souza is a 54 year old male [...] does get some anxiety when driving [place] highways. His chest gets a [...] HISTORY Diagnosis Date CAD (coronary artery disease), [place] coronary artery 2014 No PCI indicated. 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 Normal [facility] CBC panel Auto (Bld)on 08-11 Erythrocyte distribution width (RBC) [Ratio] 13.7 % Normal 11.5-15.0 [facility] Comment on above: Order Comment: Speci men Type: BLOOD SPECIMENOrdering Facility: [facility] Address: [address] [place] [address] Performed By: #### 5 8410-2 ####[facility] LABIA [id number] [place] [address] [place] Hematocrit (Bld) [Volume fraction] 49.3 % Normal 39.0-51.0 [facility] Comment on above: Order Comment: Speci men Type: BLOOD SPECIMENOrdering Facility: [facility] Address: [address] [place] [address] Performed By: #### 5 8410-2 ####[facility] LABIA [id number] [place] [address] [place] Hemoglobin (Bld) [Mass/Vol] 16.4 g/dL Normal 13.0-17.0 [facility] Comment on above: Order Comment: Speci men Type: BLOOD SPECIMENOrdering Facility: [facility] Address: [address] [place] [address] Performed By: #### 5 8410-2 ####[facility] LABIA [id number] [place] [address] [place] MCH (RBC) [Entitic mass] 27.9 pg Normal 26.0-34.0 [facility] Comment on above: Order Comment: Speci men Type: BLOOD SPECIMENOrdering Facility: [facility] Address: [address] [place] [address] Performed By: #### 5 8410-2 ####[facility] LABIA [id number] [place] [address] [place] MCHC (RBC) [Mass/Vol] 33.3 g/dL Normal 30.5-36.0 [facility] Comment on above: Order Comment: Speci men Type: BLOOD SPECIMENOrdering Facility: [facility] Address: [address] [place] [address] Performed By: #### 5 8410-2 ####[facility] LABCLIA [id number] [place] [address] [place] MCV (RBC) [Entitic vol] 84.0 fL Normal 80.0-100.0 [facility] Comment on above: Order Comment: Speci men Type: BLOOD SPECIMENOrdering Facility: [facility] Address: [address] [place] [address] Performed By: #### 5 8410-2 ####[facility] LABIA [id number] [place] [address] [place] Nucleated RBC (Bld) [#/Vol] 10*3/uL Normal <0.01 [facility] Comment on above: Order Comment: Speci men Type: BLOOD SPECIMENOrdering Facility: [facility] Address: [address] [place] [address] Performed By: #### 5 8410-2 ####[facility] LABIA [id number] [place] [address] [place] Platelet mean volume (Bld) [Entitic vol] 11.9 fL Normal 9.0-12.7 [facility] Comment on above: Order Comment: Speci men Type: BLOOD SPECIMENOrdering Facility: [facility] Address: [address] [place] [address] Performed By: #### 5 8410-2 ####[facility] LABIA [id number] [place] [address] [place] Platelets (Bld) [#/Vol] 156 10*3/uL Normal 150-400 [facility] Comment on above: Order Comment: Speci men Type: BLOOD SPECIMENOrdering Facility: [facility] Address: [address] [place] [address] Performed By: #### 5 8410-2 ####[facility] LABIA [id number] [place] [address] [place] RBC (Bld) [#/Vol] 5.87 10*6/uL Normal 4.20-6.00 [facility] System Comment on above: Order Comment: Speci men Type: BLOOD SPECIMENOrdering Facility: [facility] Address: [address] [place] [address] Performed By: #### 5 8410-2 ####[facility] LABCLIA [id number] [place] [address] [place] WBC (Bld) [#/Vol] 6.21 10*3/uL Normal 3.70-11.00 [facility] Comment on above: Order Comment: Speci men Type: BLOOD SPECIMENOrdering Facility: [facility] Address: [address] [place] [address] Performed By: #### 5 8410-2 ####[facility] LABCLIA [id number] [place] [address] [place] Comprehensive metabolic 2000 panelon 08-11-2024 Albumin [Mass/Vol] 4.0 g/dL Normal 3.9-4.9 [facility] Comment on above: Order Comment: Speci men Type: BLOOD SPECIMENOrdering Facility: [facility] Address: [address] [place] [address] Performed By: #### 2 4323-8 ####[facility] LABCLIA [id number] [place] [address] [place] ALP [Catalytic activity/Vol] 110 U/L Normal 38-113 [facility] Comment on above: Order Comment: Speci men Type: BLOOD SPECIMENOrdering Facility: [facility] Address: [address] [place] [address] Performed By: #### 2 4323-8 ####[facility] LABCLIA [id number] [place] [address] [place] ALT [Catalytic activity/Vol] 37 U/L Normal 10-54 [facility] Comment on above: Order Comment: Speci men Type: BLOOD SPECIMENOrdering Facility: [facility] Address: [address] [place] [address] Result Comment: Shankar danni removed prior to analysis. Performed By: #### 2 4323-8 ####[facility] LABCLIA [id number] [place] [address] [place] Anion gap [Moles/Vol] 11 mmol/L Normal 8-15 [facility] Comment on above: Order Comment: Speci men Type: BLOOD SPECIMENOrdering Facility: [facility] Address: [address] [place] [address] Performed By: #### 2 4323-8 ####[facility] LABIA [id number] [place] [address] [place] AST [Catalytic activity/Vol] 48 U/L High 14-40 [facility] Comment on above: Order Comment: Speci men Type: BLOOD SPECIMENOrdering Facility: [facility] Address: [address] [place] [address] Result Comment: Shankar danni removed prior to analysis. Performed By: #### 2 4323-8 ####[facility] LABIA [id number] [place] [address] [place] Bilirubin [Mass/Vol] 0.6 mg/dL Normal 0.2-1.3 [facility] Comment on above: Order Comment: Speci men Type: BLOOD SPECIMENOrdering Facility: [facility] Address: [address] [place] [address] Performed By: #### 2 4323-8 ####[facility] LABIA [id number] [place] [address] [place] Calcium [Mass/Vol] 9.7 mg/dL Normal 8.5-10.2 [facility] Comment on above: Order Comment: Speci men Type: BLOOD SPECIMENOrdering Facility: [facility] Address: [address] [place] [address] Performed By: #### 2 4323-8 ####[facility] LABCLIA [id number] [place] [address] [place] Chloride [Moles/Vol] 97 mmol/L Low 98-107 [facility] Comment on above: Order Comment: Speci men Type: BLOOD SPECIMENOrdering Facility: [facility] Address: [address] [place] [address] Performed By: #### 2 4323-8 ####[facility] LABCLIA [id number] [place] [address] [place] CO2 [Moles/Vol] 25 mmol/L Normal 22-30 [facility] Comment on above: Order Comment: Speci men Type: BLOOD SPECIMENOrdering Facility: [facility] Address: [address] [place] [address] Performed By: #### 2 4323-8 ####[facility] LABCLIA [id number] [place] [address] [place] Creatinine [Mass/Vol] 0.57 mg/dL Low 0.73-1.22 [facility] Comment on above: Order Comment: Speci men Type: BLOOD SPECIMENOrdering Facility: [facility] Address: [address] [place] [address] Performed By: #### 2 4323-8 ####[facility] LABIA [id number] [place] [address] [place] Creatinine and Glomerular filtration rate.predicted panel (S/P/Bld) 115 mL/min/1.73m??? Normal >=60 [facility] Comment on above: Order Comment: Speci men Type: BLOOD SPECIMENOrdering Facility: [facility] Address: [address] [place] [address] Result Comment: Tia mated Glomerular Filtration Rate [...] actual GFR. Performed By: #### 2 4323-8 ####[facility] LABIA [id number] [place] [address] [place] Glucose [Mass/Vol] 240 mg/dL High 74-99 [facility] Comment on above: Order Comment: Osmin men Type: BLOOD SPECIMENOrdering Facility: [facility] Address: [address] [place] [address] Result Comment: The [place] Diabetes Association (ADA) provides guidance for cutoff [...] Standards of Medical Care in Diabetes 2016, [place] Diabetes Association. Diabetes Care. 2016.39(Suppl 1). Performed By: #### 2 4323-8 ####[facility] LABIA [id number] [place] [address] [place] Potassium [Moles/Vol] 4.6 mmol/L Normal 3.7-5.1 [facility] Comment on above: Order Comment: Osmin men Type: BLOOD SPECIMENOrdering Facility: [facility] Address: [address] [place] [address] Performed By: #### 2 4323-8 ####[facility] LABIA [id number] [place] [address] [place] Protein [Mass/Vol] 7.4 g/dL Normal 6.3-8.0 [facility] Comment on above: Order Comment: Osmin men Type: BLOOD SPECIMENOrdering Facility: [facility] Address: [address] [place] [address] Performed By: #### 2 4323-8 ####[facility] LABCLIA [id number] [place] [address] [place] Sodium [Moles/Vol] 133 mmol/L Low 136-144 [facility] Comment on above: Order Comment: Speci men Type: BLOOD SPECIMENOrdering Facility: [facility] Address: [address] [place] [address] Performed By: #### 2 4323-8 ####[facility] LABIA [id number] [place] [address] [place] Urea nitrogen [Mass/Vol] 11 mg/dL Normal 9-24 [facility] Comment on above: Order Comment: Speci men Type: BLOOD SPECIMENOrdering Facility: [facility] Address: [address] [place] [address] Performed By: #### 2 4323-8 ####[facility] LABIA [id number] [place] [address] [place] HbA1c (Bld)on 08-11-2024 Average glucose Estimated from glycated hemoglobin (Bld) [Mass/Vol] 209 mg/dL Normal [facility] Comment on above: Order Comment: Speci men Type: BLOOD SPECIMENOrdering Facility: [facility] Address: [address] [place] [address] Result Comment: eAG: (Estimated average glucose) is a calculated value from HgbA1c and is loan representative of the average blood glucose level in the last 2-3 month period. Performed By: #### 5 5454-3 ####[facility] [id number] [place] [address] [place] HbA1c (Bld) [Mass fraction] 8.9 % High 4.3-5.6 [facility] Comment on above: Order Comment: Speci men Type: BLOOD SPECIMENOrdering Facility: [facility] Address: [address] [place] [address] Result Comment: A[place] ican Diabetes Association guidelines indicate that patients with HgbA1c in the range 5.7-6.4% are at increased risk for development of diabetes, and intervention by lifestyle modification may be beneficial. HgbA1c greater or equal to 6.5% is considered diagnostic of diabetes. Performed By: #### 5 5454-3 ####[facility] LABANA [id number] DHAVALRita [facility] [id number] [address] [facility] CNOVon 05-22-2024 CNOV Office Visit (FAMPWS) ELIEL SOUZA ([id number]) 1970 M Date Time Provider Department 05/22/24 9:40 AM [facility] During your visit today, we recorded [...] issues. Hx of Ileostomy. Was seen at [facility] ED on 05/14/24 for abdominal pain. Has hx of GI issues with no f/u with GI. Pt had work up done and was d/c home with Zoxochilt. Admits to not taking it but maybe [...] as needed. Is not following with any Dividend Deposit Entry Clerk, was referred to one last visit and is scheduled with Dr. Baird on 05/22/24. CATY: Stable with use of BiPAP at 23/17 cm of water. Uses machine unsure if he can notice a notice a significant difference with or without it. - Anxiety screening completed, negative. Is due for an Eye Exam, needs to find someone who takes his Insurance. Pt has had multiple Pneumonia vaccines, last one in 2020. Past medical history, appointments, medications, allergies reviewed. Previous Medical History PAST MEDICAL HISTORY 2014: CAD (coronary artery disease), [place] coronary artery Comment: No PCI indicated. 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 Normal [facility] CNOVon 05-14-2024 CNOV Office Visit (UCWSTR) ELIEL SOUZA ([id number]) 1970 M Date Time Provider Department 05/14/24 2:00 PM MATILDE GAN WSTR During your visit today, we recorded the following information about you: Temperature Pulse Respiration Blood pressure 97.5 degrees 95/minute minute 108/74 Weight 125.5 kg Matilde Gan APRN.SALES SUPPORT COORDINATOR 05/14/2024 2:30 PM Signed This note was created using MobileDayriter. Subjective Eliel Souza is a 53 year [...] going to an emergency room. Matilde Gan APRN.SALES SUPPORT COORDINATOR Allergies As of Date: 05/14/2024 (No Known Allergies) Date Reviewed: 05/14/2024 Reviewed by: Matilde Gan APRN.SALES SUPPORT COORDINATOR - Fully Assessed Reason for Visit: Diarrhea [...] 8 h (more content not included)... Normal [facility] ALBUMIN/CREATININE RATIO, UR INEon 05-09-2024 Albumin DL <= 20 mg/L (U) [Mass/Vol] mg/dL Normal [facility] Comment on above: Order Comment: Speci men Type: URINE SPECIMENOrdering Facility: [facility] Address: [address] [place] [address] Performed By: #### U ACR ####[facility] LABCLIA [id number] [place] [address] [place] Albumin/Creatinine (U) [Mass ratio] <9 Normal <30 [facility] Comment on above: Order Comment: Speci men Type: URINE SPECIMENOrdering Facility: [facility] Address: [address] [place] [address] Result Comment: Adul t Male and Female Nephrotic Criteria: <30 mg/g is considered normal to mildly increased 30-300 mg/g is considered moderately increased >300 mg/g is considered severely increased KDIGO. (2013). KDIGO 2012 Clinical Practice Guideline for the Evaluation and Management of Chronic Kidney Disease. Official Journal of the International Society of Nephrology, 3(1), 1-150. Performed By: #### U ACR ####[facility] LABCLIA [id number] [place] [address] [place] Creatinine (U) [Mass/Vol] 128.5 mg/dL Normal 20.0-300. 0 [facility] Comment on above: Order Comment: Speci men Type: URINE SPECIMENOrdering Facility: [facility] Address: [address] [place] [address] Performed By: #### U ACR ####[facility] LABCLIA [id number] [place] [address] [place] Comprehensive metabolic 2000 panelon 05-09-2024 Albumin [Mass/Vol] 3.8 g/dL Low 3.9-4.9 [facility] Comment on above: Order Comment: Speci men Type: BLOOD SPECIMENOrdering Facility: [facility] Address: [address] [place] [address] Performed By: #### 2 4331-1, 01365-1 ####[facility] LABCLIA [id number] [place] [id number] [place] ALP [Catalytic activity/Vol] 110 U/L Normal 38-113 [facility] Comment on above: Order Comment: Speci men Type: BLOOD SPECIMENOrdering Facility: [facility] Address: [address] [place] [address] Performed By: #### 2 4331-1, 22451-6 ####[facility] LABCLIA [id number] [place] [address] [place] ALT [Catalytic activity/Vol] 33 U/L Normal 10-54 [facility] Comment on above: Order Comment: Speci men Type: BLOOD SPECIMENOrdering Facility: [facility] Address: [address] [place] [address] Performed By: #### 2 4331-1, 69352-9 ####[facility] LABCLIA [id number] [place] [id number] [place] Anion gap [Moles/Vol] 10 mmol/L Normal 8-15 [facility] Comment on above: Order Comment: Speci men Type: BLOOD SPECIMENOrdering Facility: [facility] Address: [address] [place] [address] Performed By: #### 2 4331-1, 94139-2 ####[facility] LABCLIA [id number] [place] [id number] [place] AST [Catalytic activity/Vol] 25 U/L Normal 14-40 [facility] Comment on above: Order Comment: Speci men Type: BLOOD SPECIMENOrdering Facility: [facility] Address: [address] [place] [id number] Performed By: #### 2 4331-1, ####[facility] LABCLIA [id number] [place] [id number] [place] Bilirubin [Mass/Vol] 1.0 mg/dL Normal 0.2-1.3 [facility] Comment on above: Order Comment: Speci men Type: BLOOD SPECIMENOrdering Facility: [facility] Address: [address] [place] [address] Performed By: #### 2 4331-1, ####[facility] LABCLIA [id number] [place] [address] [place] Calcium [Mass/Vol] 9.3 mg/dL Normal 8.5-10.2 [facility] Comment on above: Order Comment: Speci men Type: BLOOD SPECIMENOrdering Facility: [facility] Address: [address] [address] Performed By: #### 2 4331-1, ####[facility] LABCLIA [id number] [place] [address] [place] Chloride [Moles/Vol] 100 mmol/L Normal 98-107 [facility] Comment on above: Order Comment: Speci men Type: BLOOD SPECIMENOrdering Facility: [facility] Address: [address] [place] [id number] Performed By: #### 2 4331-1, ####[facility] LABCLIA [id number] [place] [id number] [place] CO2 [Moles/Vol] 24 mmol/L Normal 22-30 [facility] Comment on above: Order Comment: Speci men Type: BLOOD SPECIMENOrdering Facility: [facility] Address: [address] [place], [place] [address] Performed By: #### 2 4331-1, 72422-5 ####[facility] LABIA [id number] [place] [address] [place] Creatinine [Mass/Vol] 0.67 mg/dL Low 0.73-1.22 [facility] Comment on above: Order Comment: Osmin lopez Type: BLOOD SPECIMENOrdering Facility: [facility] Address: [address] [address] Performed By: #### 2 4331-1, 73851-1 ####[facility] LABIA [id number] [place] [address] [place] Creatinine and Glomerular filtration rate.predicted panel (S/P/Bld) 110 mL/min/1.73m??? Normal >=60 [facility] Comment on above: Order Comment: Osmin lopez Type: BLOOD SPECIMENOrdering Facility: [facility] Address: [address] [address] Result Comment: Tia mated Glomerular Filtration Rate [...] actual GFR. Performed By: #### 2 4331-1, 51174-2 ####[facility] LABIA [id number] [place] [address] [place] Glucose [Mass/Vol] 192 mg/dL High 74-99 [facility] Comment on above: Order Comment: Osmin lopez Type: BLOOD SPECIMENOrdering Facility: [facility] Address: [address] [address] Result Comment: The [place] Diabetes Association (ADA) provides guidance for cutoff [...] Standards of Medical Care in Diabetes 2016, [place] Diabetes Association. Diabetes Care. 2016.39(Suppl 1). Performed By: #### 2 4331-, ####[facility] LABCLIA [id number] [place] [address] [place] Potassium [Moles/Vol] 4.6 mmol/L Normal 3.7-5.1 [facility] Comment on above: Order Comment: Speci men Type: BLOOD SPECIMENOrdering Facility: [facility] Address: [address] [place] [address] Performed By: #### 2 43310-17, ####[facility] LABIA [id number] [place] [address] [place] Protein [Mass/Vol] 7.0 g/dL Normal 6.3-8.0 [facility] Comment on above: Order Comment: Speci men Type: BLOOD SPECIMENOrdering Facility: [facility] Address: [address] [place] [address] Performed By: #### 2 43310-17, ####[facility] LABCLIA [id number] [place] [address] [place] Sodium [Moles/Vol] 134 mmol/L Low 136-144 [facility] Comment on above: Order Comment: Speci men Type: BLOOD SPECIMENOrdering Facility: [facility] Address: [address] [place] [address] Performed By: #### 2 4331-, ####[facility] LABCLIA [id number] [address] [address] [place] Urea nitrogen [Mass/Vol] 10 mg/dL Normal 9-24 [facility] Comment on above: Order Comment: Osmin lopez Type: BLOOD SPECIMENOrdering Facility: [facility] Address: [address] [place] [address] Performed By: #### 2 4331-1, 72986-5 ####[facility] LABCLIA [id number] [place] [address] [place] HbA1c (Bld)on 05-09-2024 Average glucose Estimated from glycated hemoglobin (Bld) [Mass/Vol] 212 mg/dL Normal [facility] Comment on above: Order Comment: Osmin lopez Type: BLOOD SPECIMENOrdering Facility: [facility] Address: [address] [place] [address] Result Comment: eAG: (Estimated average glucose) is a calculated value from HgbA1c and is loan representative of the average blood glucose level in the last 2-3 month period. Performed By: #### 5 5454-3 ####[facility] LABCLIA [id number] [place] [address] [place] HbA1c (Bld) [Mass fraction] 9.0 % High 4.3-5.6 [facility] Comment on above: Order Comment: Osmin lopez Type: BLOOD SPECIMENOrdering Facility: [facility] Address: [address] [place] [address] Result Comment: [place] Diabetes Association guidelines indicate that patients with HgbA1c in the range 5.7-6.4% are at increased risk for development of diabetes, and intervention by lifestyle modification may be beneficial. HgbA1c greater or equal to 6.5% is considered diagnostic of diabetes. Performed By: #### 5 5454-3 ####[facility] LABCLIA [id number] [place] [id number] [place] Lipid 1996 panelon Cholesterol [Mass/Vol] 105 mg/dL Normal <200 Cl [facility] Comment on above: Order Comment: Osmin lopez Type: BLOOD SPECIMENOrdering Facility: [facility] Address: [address] [place] [address] Result Comment: <200 mg/dL, Desirable 200-239 mg/dL, Borderline high >239 mg/dL, High Performed By: #### 2 4331-1, 39204-2 ####[facility] LABCLIA [id number] [address] [address] [place] Cholesterol in HDL [Mass/Vol] 18 mg/dL Low >39 [facility] Comment on above: Order Comment: Speci men Type: BLOOD SPECIMENOrdering Facility: [facility] Address: [address] [place] [address] Result Comment: 40-5 9 mg/dL, Acceptable >59 mg/dL, High: Negative risk factor for coronary heart disease <40 mg/dL, Low: Positive risk factor for coronary heart disease Performed By: #### 2 4331-1, 07546-2 ####[facility] LABCLIA [id number] [place] [address] [place] Cholesterol in LDL [Mass/Vol] 48 mg/dL Normal <100 [facility] Comment on above: Order Comment: Manni men Type: BLOOD SPECIMENOrdering Facility: [facility] Address: [address] [place] [address] Result Comment: <100 mg/dL, Optimal 100-129 mg/dL, Near optimal/above optimal 130-159 mg/dL, Borderline high 160-189 mg/dL, High >189 mg/dL, Very high Secondary prevention optimal LDL Cholesterol levels are recommended to be < 70 mg/dL Performed By: #### 2 4331-1, 05956-8 ####[facility] LABCLIA [id number] [place] [address] [place] Cholesterol in LDL/Cholesterol in HDL [Mass ratio] 2.67 {ratio} High <2.54 [facility] Comment on above: Order Comment: Speci men Type: BLOOD SPECIMENOrdering Facility: [facility] Address: [address] [place] [address] Result Comment: Refe carlene: 1. National Cholesterol Education Program ATP III Guideline At-A-Glance Quick Desk Reference: National Heart, Lung, and Blood [place]. National Institutes of Health. 2001: NIH Publication No. 01-3305. 2. An International Atherosclerosis Society position paper: global recommendations for the management of dyslipidemia: executive summary, Atherosclerosis. 2014: 232(2):410-413. Performed By: #### 2 4331-1, 49268-9 ####[facility] LABCLIA [id number] [place] [address] [place] Cholesterol in VLDL [Mass/Vol] 39 mg/dL High <30 [facility] Comment on above: Order Comment: Osmin lopez Type: BLOOD SPECIMENOrdering Facility: [facility] Address: [address] [place] [address] Performed By: #### 2 4331-1, 46284-4 ####[facility] LABIA [id number] [place] [address] [place] Cholesterol non HDL [Mass/Vol] 87 mg/dL Normal <130 [facility] Comment on above: Order Comment: Osmin lopez Type: BLOOD SPECIMENOrdering Facility: [facility] Address: [address] [place] [address] Result Comment: <130 mg/dL, Optimal 130-159 mg/dL, Near optimal/above optimal 160-189 mg/dL, Borderline high 190-219 mg/dL, High >219 mg/dL, Very high Secondary prevention optimal non HDL Cholesterol levels are recommended to be <100 mg/dL Performed By: #### 2 4331-1, 65222-7 ####[facility] LABIA [id number] [place] [address] [place] Cholesterol.total/Cholest domenic in HDL [Mass ratio] 5.83 {ratio} High <5.10 [facility] Comment on above: Order Comment: Osmin lopez Type: BLOOD SPECIMENOrdering Facility: [facility] Address: [address] [place] [address] Performed By: #### 2 4331-1, 73313-9 ####[facility] [place] LAB[place] [id number] [place] [address] [place] FASTING TIME 10 hrs Normal [facility] Comment on above: Order Comment: Speci men Type: BLOOD SPECIMENOrdering Facility: [facility] Address: [address] [place] [address] Performed By: #### 2 4331-1, 43226-4 ####[facility] [place] LABCLIA [id number] [place] [address] [place] Triglyceride [Mass/Vol] 194 mg/dL High <150 [facility] Comment on above: Order Comment: Speci men Type: BLOOD SPECIMENOrdering Facility: [facility] Address: [address] [place] [address] Result Comment: <150 mg/dL, Normal 150-199 mg/dL, Borderline high 200-499 mg/dL, High >499 mg/dL, Very high Performed By: #### 2 4331-1, 42848-8 ####[facility] [place] LABCLIA [id number] [place] [address] [place] Absolute lymphocyte countOrd ered By: Bruce Dong on 01-29-2024 Lymphocytes Auto (Unsp spec) [#/Vol] 2.23 10*3/uL 0.83-4.51 [facility] Automated lymphocyte count a s percentage of total leukocytesOrdered By: Bruce Dong on 01-29-2024 Lymphocytes/100 WBC Auto (Unsp spec) 39.1 % 19-41 [facility] Basophil percentageOrdered B y: Bruce Dong on 01-29-2024 Basophils/100 WBC (Bld) 1.1 % 0-1 [facility] Chloride [Moles/Vol] 105 mmol/L 98-107 [facility] Eosinophils/100 WBC (Bld) 4.7 % 0-5 [facility] Glucose [Mass/Vol] 415 mg/dL 74-106 [facility] Comment on above: Slight Lipemia, Resu lt may be falsely increased.Glucose result greater than or equal to 200 mg/dLsuggests DIABETES MELLITUS per A.D.A. criteria. Hemoglobin (Bld) [Mass/Vol] 15.3 g/dL 13.0-16.5 [facility] Monocytes/100 WBC (Bld) 7.4 % 0-10 [facility] Neutrophils (Bld) [#/Vol] 2.6 10*3/uL 2.0-7.7 [facility] Neutrophils/100 WBC (Bld) 46.1 % 47-70 [facility] Potassium [Moles/Vol] 3.9 mmol/L 3.5-5.1 [facility] Comment on above: Moderate Hemolysis, Result may be falsely increased.-Slight Lipemia, Result may be falsely increased. Sodium [Moles/Vol] 135 mmol/L 136-145 [facility] WBC (Bld) [#/Vol] 5.7 10*3/uL 4.4-11.0 [facility] Blood platelet adequacy dete ction by light microscopyOrdered By: Bruce Dong on 01-29-2024 Platelets LM Ql (Bld) SLT DEC ADEQ [facility] Determination of erythrocyte mean corpuscular volume (MCV)Ordered By: Bruce Dong on 01-29-2024 MCV (RBC) [Entitic vol] 85.2 fL 80-94 [facility] Erythrocyte distribution wid th ratioOrdered By: Bruce Dong on 01-29-2024 Erythrocyte distribution width (RBC) [Ratio] 13.2 % 11.6-14.6 [facility] Erythrocyte distribution wid th standard deviationOrdered By: Bruce Dong on 01-29-2024 Erythrocyte distribution width (RBC) [Entitic vol] 41.0 fL 35.1-43.9 [facility] Hematocrit Auto (Bld) [Volum e fraction]Ordered By: Bruce Dong on 01-29-2024 Hematocrit (Bld) [Volume fraction] 44.4 % 40-54 [facility] Immature granulocytes/100 WB C Auto (Bld)Ordered By: Bruce Dong on 01-29-2024 Immature granulocytes/100 WBC (Bld) 1.600 % 0.0-0.9 [facility] Comment on above: IG% - Immature Granu locytes (promyelocytes, myelocytes and metamyelocytes) > 1% indicates that a LEFT SHIFT is Present. Laboratory - Chemistry and C hemistry - challengeOrdered By: Bruce Dong on 01-29-2024 CO2 [Moles/Vol] 22.0 mmol/L 21.0-32.0 [facility] Comment on above: Slight Lipemia, Resu lt may be falsely increased. Magnesium [Mass/Vol] 1.6 mg/dL 1.6-2.6 [facility] Comment on above: Moderate Hemolysis, Result may be falsely increased.-Slight Lipemia, Result may be falsely increased. Natriuretic peptide B (Bld) [Mass/Vol] 56.4 pg/mL 0-100 [facility] Urea nitrogen/Creatinine [Mass ratio] 20.5 mg/mg 10-20 [facility] Laboratory - Hematology and Cell countsOrdered By: Bruce Dong on 01-29-2024 MCH (RBC) [Entitic mass] 29.4 pg 27.0-32.0 [facility] MCHC (RBC) [Mass/Vol] 34.5 g/dL 32-36 [facility] Nucleated RBC/100 WBC (Bld) [Ratio] 0 % 0-5 [facility] Platelet mean volume (Bld) [Entitic vol] 11.7 fL 6.2-12.0 [facility] Platelets (Bld) [#/Vol] 92 10*3/uL 150-450 [facility] Laboratory - Microbiology an d Antimicrobial susceptibilityOrdered By: Bruce Dong on 01-29-2024 SARS-CoV-2 (COVID-19) RNA LAZARO+probe Ql (Unsp spec) [facility] No Panel InformationOrdered By: Bruce Dong on 01-29-2024 Estimated Creatinine Clearance Calc 152.90 ml/min [facility] Estimated GFR (MDRD) Amer 132 mL/min >60 [facility] Comment on above: GFR Calc Estimated GFR (MDRD) Non-Af Amer 109 mL/min >60 [facility] Comment on above: Non- GFR Calc RBC Auto (Bld) [#/Vol]Ordere d By: Bruce Dong on 04-14-2024 RBC (Bld) [#/Vol] 5.21 10*6/uL 4.6-6.2 [facility] Serum or plasma calcium mohan urement (mass/volume)Ordered By: Bruce oDng on 01-29-2024 Calcium [Mass/Vol] 8.9 mg/dL 8.5-10.1 [facility] Comment on above: Slight Lipemia, Resu lt may be falsely increased. Serum or plasma creatinine m easurement (mass/volume)Ordered By: Bruce Dong on 01-29-2024 Creatinine [Mass/Vol] 0.78 mg/dL 0.70-1.30 [facility] Comment on above: Slight Lipemia, Resu lt may be falsely increased.The validity of the calculated GFR & GFRAA in patients over 70 years has not been determined. Clinical correlation is essential. Serum or plasma urea nitroge n measurement (mass/volume)Ordered By: Bruce Dong on 01-29-2024 Urea nitrogen [Mass/Vol] 16 mg/dL 7-18 [facility] Comment on above: Slight Lipemia, Resu lt may be falsely increased. Thin prep Papanicolaou smear with manual screeningOrdered By: Bruce Dong on 01-29-2024 Thin prep Papanicolaou smear with manual screening 8 5-15 [facility] XR CHEST 2V FRONTAL/LATon [facility] XR Chest PA and Lateralon IMPRESSION: No acute radiographic abnormality. Wood Inspector: BJORN Transcribe Date/Time: Sep 21 2023 4:13P Dictated by : LINDA SANDY MD This examination was interpreted and the report reviewed and electronically signed by: LINDA SANDY MD on Sep 21 2023 4:14PM [facility] DIVISION OF RADIOLOGY * * *Final Report* [...] right mid rib. DIVISION OF RADIOLOGY Provider, [facility] [place] - 09/21/2023 * * *Final Report* * [...] rib. IMPRESSION IMPRESSION: No acute radiographic abnormality. Wood Inspector: PSCB Transcribe Date/Time: Sep 21 2023 4:13P Dictated by : LINDA SANDY MD This examination was interpreted and the report reviewed and electronically signed by: LINDA SANDY MD on Sep 21 2023 4:14PM EST [facility] Radiology Study observation (narrative) Robbie salas [facility] XR Chest PA and LateralOrder ed By: Ccf Provider on 09-21-2023 [facility] Absolute lymphocyte countOrd ered By: Dr. Whiteside on 12-06-2022 Lymphocytes Auto (Unsp spec) [#/Vol] 0.94 10*3/uL 0.83-4.51 [facility] Basophil percentageOrdered B y: Dr. Whiteside on 12-06-2022 Basophils/100 WBC (Bld) 0.5 % 0-1 [facility] Chloride [Moles/Vol] 99 mmol/L 98-107 [facility] Eosinophils/100 WBC (Bld) 1.0 % 0-5 [facility] Glucose [Mass/Vol] 346 mg/dL 74-106 [facility] Comment on above: Glucose result great er than or equal to 200 mg/dLsuggests DIABETES MELLITUS per A.D.A. criteria. Neutrophils (Bld) [#/Vol] 5.7 10*3/uL 2.0-7.7 [facility] Neutrophils/100 WBC (Bld) 73.9 % 47-70 [facility] Potassium [Moles/Vol] 4.1 mmol/L 3.5-5.1 [facility] Sodium [Moles/Vol] 132 mmol/L 136-145 [facility] WBC (Bld) [#/Vol] 7.7 10*3/uL 4.4-11.0 [facility] Blood erythrocytes count (nu mber/volume)Ordered By: Dr. Whiteside on 12-06-2022 RBC (Bld) [#/Vol] 6.44 10*6/uL 4.6-6.2 [facility] Blood hemoglobin measurement (mass/volume)Ordered By: Dr. Whiteside on 12-06-2022 Hemoglobin (Bld) [Mass/Vol] 18.5 g/dL 13.0-16.5 [facility] Blood lymphocytes/100 leukoc ytesOrdered By: Dr. Whiteside on 12-06-2022 Lymphocytes/100 WBC (Bld) 12.2 % 19-41 [facility] Blood monocytes/100 leukocyt esOrdered By: Dr. Whiteside on 12-06-2022 Monocytes/100 WBC (Bld) 11.6 % 0-10 [facility] Blood platelet mean volumeOr dered By: Dr. Whiteside on 12-06-2022 Platelet mean volume (Bld) [Entitic vol] 11.0 fL 6.2-12.0 [facility] Determination of erythrocyte mean corpuscular volume (MCV)Ordered By: Dr. Whiteside on 12-06-2022 MCV (RBC) [Entitic vol] 83.4 fL 80-94 [facility] Hematocrit Auto (Bld) [Volum e fraction]Ordered By: Dr. Whiteside on 12-06-2022 Hematocrit (Bld) [Volume fraction] 53.7 % 40-54 [facility] Laboratory - Chemistry and C hemistry - challengeOrdered By: Dr. Whiteside on 12-06-2022 CO2 [Moles/Vol] 22.0 mmol/L 21.0-32.0 [facility] Urea nitrogen/Creatinine [Mass ratio] 23.6 mg/mg 10-20 [facility] Laboratory - Hematology and Cell countsOrdered By: Dr. Whiteside on 12-06-2022 Erythrocyte distribution width (RBC) [Entitic vol] 39.5 fL 35.1-43.9 [facility] Erythrocyte distribution width (RBC) [Ratio] 13.2 % 11.6-14.6 [facility] Immature granulocytes/100 WBC (Bld) 0.800 % 0.0-0.9 [facility] Comment on above: IG% - Immature Granu locytes (promyelocytes, myelocytes and metamyelocytes) > 1% indicates that a LEFT SHIFT is Present. MCH (RBC) [Entitic mass] 28.7 pg 27.0-32.0 [facility] Nucleated RBC/100 WBC (Bld) [Ratio] 0 % 0-5 [facility] MCHC Auto (RBC) [Mass/Vol]Or dered By: Dr. Whiteside on 12-06-2022 MCHC (RBC) [Mass/Vol] 34.5 g/dL 32-36 [facility] No Panel InformationOrdered By: Dr. Whiteside on 12-06-2022 Estimated Creatinine Clearance Calc 91.78 ml/min [facility] Estimated GFR (MDRD) Amer 103 mL/min >60 [facility] Comment on above: GFR Calc Estimated GFR (MDRD) Non-Af Amer 85 mL/min >60 [facility] Comment on above: Non- GFR Calc Troponin I High Sensitivity 15 pg/mL 3.0-78.0 [facility] Comment on above: Please Note: New [place] t Units and Gender Specific Reference Ranges. For more information see Policy Stat Procedure Hines High Sensitivity Troponin (TNIH) and attachments. Platelets bldOrdered By: Dr. Whiteside on 12-06-2022 Platelets (Bld) [#/Vol] 125 10*3/uL 150-450 [facility] Review by pathologistOrdered By: Dr. Whiteside on 12-06-2022 Pathologist review Jl (Unsp spec) [Interp] May chen [facility] Serum or plasma calcium mohan urement (mass/volume)Ordered By: Dr. Whiteside on 12-06-2022 Calcium [Mass/Vol] 9.5 mg/dL 8.5-10.1 [facility] Serum or plasma creatinine m easurement (mass/volume)Ordered By: Dr. Whiteside on 12-06-2022 Creatinine [Mass/Vol] 0.98 mg/dL 0.70-1.30 [facility] Comment on above: The validity of the calculated GFR & GFRAA in patients over 70 years has not been determined. Clinical correlation is essential. Serum or plasma urea nitroge n measurement (mass/volume)Ordered By: Dr. Whiteside on 12-06-2022 Urea nitrogen [Mass/Vol] 23 mg/dL 7- [facility] Thin prep Papanicolaou smear with manual screeningOrdered By: Dr. Whiteside on 12-06-2022 Thin prep Papanicolaou smear with manual screening 11 - [facility] ANES POSTPROC EVALon 020 ANES POSTPROC EVAL HNO ID: [id number] Author: Raiza Negron Service: ? Author Type: Anesthesiologist Type: Anesthesia Postprocedure Evaluation Filed: 09/03/2020 6:07 PM Note Text: POST ANESTHESIA EVALUATION NOTE : 1970 Procedure Summary Date: 09/03/20 Room / Location: TX OR / TX OR Anesthesia Start: 1619 Anesthesia Stop: 1746 Procedure: Right Hydrocelectomy (Right [...] September 03, 2020 TIME: 6:06 PM CSN: [id number] [facility] ANES PRE-OPon 09-03-2020 ANES PRE-OP HNO ID: [id number] Author: Raiza Negron Service: ? Author Type: Anesthesiologist Type: Anesthesia Preprocedure Evaluation Filed: 09/03/2020 4:04 PM Note Text: ANESTHESIOLOGY DAY OF SURGERY NOTE : 1970 Procedure(s) (LRB): Right Hydrocelectomy (Right) Surgeon(s): Eileen Avila (Fartun) DO Margarita Ordaz (Fartun) Theresa Estimated body mass index is 46.03 kg/m? as calculated from the following: Height as of 08/27/20: 180.3 cm (5' 11). Weight as of 08/27/20: 149.7 kg (330 lb). Most recent hematocrit and potassium results: Hematocrit 38.8 05/02/2020 Potassium 3.9 05/02/2020 Relevant Problems ANESTHESIA (+) Obstructive sleep apnea treated with BiPAP CARDIO (+) Coronary artery disease involving [place] coronary artery of [place] heart (+) DVT of lower extremity (deep [...] September 03, 2020 TIME: 4:02 PM CSN: [id number] [facility] OPERATIVE NOon 09-03-2020 OPERATIVE NO HNO ID: [id number] Author: Eileen Saha Service: Urology Author Type: Physician Type: Operative Report Filed: 09/03/2020 5:42 PM Note Text: OPERATIVE/PROCEDURE REPORT LOG ID: [id number] Surgery/Procedure Date: 09/03/2020 Incision/Procedure Start Time: 4:41 PM Incision Close/Procedure End Time: 5:40 PM Surgeon(s)/Procedura list(s) and Marketing Communications Associate(s): Surgeon(s) and Role: * Eileen Saha - [...] 09/03/2020 5:02 PM Implantable Devices: None Drains: [place] Complications: None Anatomic Site: N/A Approach: Open Qualifier: None I/primary surgeon/proceduralis t performed the procedure with assistance. SIGNATURE: Eileen Saha MD PATIENT NAME: Eliel Souza DATE: September 03, 2020 TIME: 5:40 PM PAGER/CONTACT #: [phone] [facility] SURGICAL PATHOLOGYon CASE REPORT Normal [facility] Comment on above: Order Comment: Speci men Type: TISSUE SPECIMEN Result Comment: Surg ica Pathology Report Case: [id number] Authorizing Provider: Eileen Saha Collected: 09/03/2020 05:02 PM Ordering Location: [place] [facility] [place] Received: 09/04/2020 06:58 AM Pathologist: Vilma Oakes MD Specimen: HYDROCELE SAC RIGHT Performed By: #### S #### [facility] CLIA [id number] [place] [address] FINAL DIAGNOSIS Normal [facility] Comment on above: Order Comment: Speci men Type: TISSUE SPECIMEN Result Comment: Righ t inguinal tissue, excision Fibromembranous tissue with mesothelial lining compatible with hydrocele sac. Performed By: #### S #### [facility] CLIA [id number] [place] [address] FINAL PERFORMING LAB Normal [facility] Comment on above: Order Comment: Speci men Type: TISSUE SPECIMEN Result Comment: Diag nostic interpretation performed at [facility], [address] [place] [address] CLIA# [id number] Food Manager: Tyrone Douglass M.D. Performed By: #### S #### [facility] CLIA [id number] [address] [place] [address] GROSS DESCRIPTION Normal [facility] Comment on above: Order Comment: Speci men Type: TISSUE SPECIMEN Result Comment: Nellie Gilmore YDROCELE SAC RIGHT. Received in formalin labeled right hydrocele sac is a pink membranous segment of tissue measuring 6.5 x 3.5 x 1.3 cm. One side is smooth and glistening the other side is slightly roughened. The specimen is sectioned. Gas Pump Attendant sections are submitted in formalin in 1 cassette. KVB/louise Gross examination performed at [facility], [address] [place] [address] CLIA# [id number] Performed By: #### S #### [facility] CLIA [id number] [address] [place] [address] XR FEMUR MINIMUM 2 VIEWS LEF Ton [...] AM Sign Date: 09/03/2020 10:22:08 AM [facility]ing [facility] ([place]) XR SPINE LUMBOSACRAL 2 OR 3 [...] Date: 09/03/2020 10:16:56 AM Ordering Provider:Mesfin Conteh [facility] ([place]) Javy 09-02-2020 CNPN Telephone (UROLAE) ELIEL SOUZA ([id number]) 1970 Date Time Provider Department 09/02/20 EILEEN SAHA [...] Herrera - Fully Assessed Reason for Visit: LMTCB [1226] Prescriptions as of 09/02/2020 Sig: LISINOPRIL [...] without c*07/05/2014 More... Coronary artery disease involving [place]*07/05/2014 More... Obstructive sleep apnea treated with [...] MARIE RUSH on 09/02/20 Normal [facility] HISTORY PHYSICALon 0 HISTORY PHYSICAL HNO ID: [id number] Author: Rachelle Herrera Service: ? Author Type: Nurse Practitioner Type: HANDP Filed: 08/27/2020 12:18 PM Note Text: HISTORY AND PHYSICAL EXAMINATION SERVICE DATE: 08/27/2020 SERVICE TIME: 11:34 AM PRIMARY CARE PHYSICIAN: Americo Borrego MD The patient has the following: ACTIVE PROBLEM LIST Depression Asthma Morbid Obesity ([facility]) Gerd (Gastroesophageal Reflux Disease) Benign Prostatic Hyperplasia History of Smoking Cervical Disc Displacement Hyperlipidemia Fatty Liver Cholecystitis Chronic H. Pylori Infection Unspecified Gastritis and Gastroduodenitis Without Mention of Hemorrhage Duodenitis Without Mention of Hemorrhage Blood in Stool DVT of lower extremity (deep venous thrombosis) ([facility]) Rib Fracture Fracture, Femur ([facility]) Calcaneal Spur Lateral Epicondylitis Abdominal Pain, Epigastric Copd (Chronic Obstructive Pulmonary Disease) ([facility]) Diabetes Mellitus Type 2, Controlled, Without Complications ([facility]) Coronary Artery Disease Involving [place] Coronary Artery of [place] Heart Obstructive Sleep Apnea Treated With Bipap Copd With Exacerbation ([facility]) Essential Hypertension Llq Abdominal Pain Diverticulitis Morbid Obesity With Bmi of 45.0-49.9, Adult ([facility]) Post-Op Pain Ileostomy in Place ([facility]) Nicotine use disorder, F17.2 Subjective CHIEF COMPLAINT: [...] Diagnosis Date - CAD (coronary artery disease), [place] coronary artery 2014 No PCI indicated. 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 PAST SURGICAL HISTORY Procedure Laterality Date - [facility] Normal colon - COLONOSCOP W/ OR W/O [facility] SPEC 01/21/16 few diverticula - [facility] 11/04/10 duodenitis - EGD W/O [facility] SPECIMEN W/BX 01/21/16 minimal gastritis - EXC [...] albuterol for rescue CAD -no stents no clay worker Diabetes -last A1c 7.1 uses insulin Invokana [...] Tests/Procedures Have Been Initiated: C-19 [facility] CONSULTS: No Consults Pending Planned Anesthetic: General Instructions Given to Patient: Patient given verbal and written preop instructions and voices comprehension/compli ance. This note has been produced using [employer] speech recognition software and may contain errors to the system including grammar, punctuation, spelling, gender and words and phrases that may be inappropriate. SIGNATURE: Rachelle Herrera APRN.GISSELL PATIENT NAME: Eliel Souza DATE: August 27, 2020 TIME: 11:34 AM PAGER/CONTACT #: [facility] Javy 08-18-2020 [facility] Telephone (UROLAE) GONZALOELIEL CRAWLEY ([id number]) 1970 M Date Time Provider Department 08/18/20 [...] without c*07/05/2014 More... Coronary artery disease involving [place]*07/05/2014 More... Obstructive sleep apnea treated with [...] Encounter Status:Closed by MARIE RUSH on 08/19/20 [facility] HOSPon 08-15-2020 HOSP Patient:Olman Souza jase Joseph MRN: Height:5' 11(1.803 m) Weight:330 lb (149.687 [...] List: Depression [F32.9] Asthma [J45.909] Morbid obesity ([facility]) [E66.01] GERD (gastroesophageal reflux disease) [K21.9] Benign prostatic hyperplasia [N40.0] History of smoking [Z87.891] Cervical disc displacement [M50.20] Hyperlipidemia [E78.5] Fatty liver [K76.0] Cholecystitis chronic [] H. pylori infection [A04.8] Unspecified gastritis and gastroduodenitis without mention of hemorrhage [K29.70, K29.90] Duodenitis without mention of hemorrhage [K29.80] Blood in stool [K92.1] DVT of lower extremity (deep venous thrombosis) ([facility]) [I82.409] Rib fracture [S22.39XA] Fracture, femur ([facility]) [S72.90XA] Calcaneal spur [M77.30] Lateral epicondylitis [M77.10] Abdominal pain, epigastric [R10.13] COPD (chronic obstructive pulmonary disease) ([facility]) [J44.9] Diabetes mellitus type 2, controlled, without complications ([facility]) [E11.9] Coronary artery disease involving [place] coronary artery of [place] heart [I25.10] Obstructive sleep apnea treated with BiPAP [G47.33] COPD with exacerbation ([facility]) [J44.1] Essential hypertension [I10] LLQ abdominal pain [R10.32] Diverticulitis [K57.92] Morbid obesity with BMI of 45.0-49.9, adult ([facility]) [E66.01, Z68.42] Post-op pain [G89.18] Ileostomy in place ([facility]) [Z93.2] Nicotine use disorder, F17.2 [F17.200] Allergies: [...] surgery and COVID test with Dr. Saha Normal [facility] CNOVon 07-23-2020 CNOV Office Visit (AKURFL) ELIEL SOUZA ([id number]) 1970 M Date Time Provider Department 07/23/20 1:45 PM REKHA BROWN During your visit today, we recorded the following information about you: Blood pressure Weight Height 122/80 149.7 kg 1.803 m Rekha Brown DO, MBA 07/23/2020 3:42 PM Signed ?? [facility] [place] [facility] UROLOGY LOCATION: [address] [place] [address] NEW PATIENT HISTORY AND PHYSICAL EXAM PATIENT INFO: Eliel Souza 48 year old REFERRING M.D.: Tyrell Christian (Pa) PCP: Americo Borrego MD Consultation requested by Tyrell Christian (Pa), KARTIK and my final recommendations will be [...] 72.8 Lymph% (%) Date Value 12/15/2015 20.8 Webb% (%) Date Value 12/15/2015 4.5 Eosin% (%) Date Value 12/15/2015 1.4 Baso% (%) Date Value 12/15/2015 0.5 Abs Neut (ANC) (k/uL) Date Value 12/15/2015 8.33 (H) Abs Webb (k/uL) Date Value 12/15/2015 0.52 Abs Eosin [...] 11/10/2019 5.0 4.5 - 8.0 Final Specific [place], [facility] Date Value Ref Range Status 11/10/2019 [...] Diagnosis Date - CAD (coronary artery disease), [place] coronary artery 2014 No PCI indicated. - Closed fracture of femur ([facility]) 11/2010 - Depressive disorder, not elsewhere classified - Diabetes mellitus type 2 in obese ([facility]) - DVT of lower extremity (deep venous thrombosis) ([facility]) 11/2010 - Esophageal reflux - Essential hypertension - CATY (obstructive sleep apnea) - Pelvic fracture ([facility]) - Seasonal allergic rhinitis - Unspecified asthma(493.90) Diagnosed in 20s. PAST SURGICAL HISTORY Procedure Laterality Date - COLONOSCOP W/ OR W/O BRSH SPEC 11/04/10 Normal colon - COLONOSCOP W/ OR W/O BRSH SPEC 01/21/16 few diverticula - EGD W/O BRS SPECIMEN W/BX 11/04/10 duodenitis - EGD W/O BRS SPECIMEN W/BX 01/21/16 minimal gastritis - EXC [...] specific antigen) [Z12.5] Order(s):UA DIP, URINE (POC) [[id number]] Order #: [id number]. #:[id number] PSA/PROSTSPECAG SCRN [SQPSAS1] Order #: [id number] FUTURE Prescriptions as of 07/23/2020 Sig: LISINOPRIL [...] without c*07/05/2014 More... Coronary artery disease involving [place]*07/05/2014 More... Obstructive sleep apnea treated with [...] Encounter Status:Closed by REKHA BROWN on 07/23/20 [facility] PROGRESSon 07-23-2020 PROGRESS HNO ID: [id number] Author: Rekha Brown Service: ? Author Type: Physician Type: Progress Notes Filed: 07/23/2020 3:42 PM Note Text: ?? [facility] [place] [facility] UROLOGY LOCATION: [address] [place] [address] NEW PATIENT HISTORY AND PHYSICAL EXAM PATIENT INFO: Eliel Souza 48 year old REFERRING M.D.: Tyrell Anne) Gino PCP: Americo Borrego MD Consultation requested by [...] 72.8 Lymph% (%) Date Value 12/15/2015 20.8 Webb% (%) Date Value 12/15/2015 4.5 Eosin% (%) Date Value 12/15/2015 1.4 Baso% (%) Date Value 12/15/2015 0.5 Abs Neut (ANC) (k/uL) Date Value 12/15/2015 8.33 (H) Abs Webb (k/uL) Date Value 12/15/2015 0.52 Abs Eosin [...] 11/10/2019 5.0 4.5 - 8.0 Final Specific [place], Ur Date Value Ref Range Status 11/10/2019 [...] Diagnosis Date - CAD (coronary artery disease), [place] coronary artery 2015 No PCI indicated. - Closed fracture of femur ([facility]) 11/2010 - Depressive disorder, not elsewhere classified - Diabetes mellitus type 2 in obese ([facility]) - DVT of lower extremity (deep venous thrombosis) ([facility]) 11/2010 - Esophageal reflux - Essential hypertension - CATY (obstructive sleep apnea) - Pelvic fracture ([facility]) - Seasonal allergic rhinitis - Unspecified asthma(493.90) Diagnosed in 20s. PAST SURGICAL HISTORY Procedure Laterality Date - COLON[facility]COP [facility]/ [facility] 11/04/10 Normal colon - COLONOSCOP W/ OR W/[facility] 01/21/16 few diverticula - EGD W/[facility] W/BX 11/04/10 duodenitis - EGD W/[facility] W/BX 01/21/16 minimal gastritis - EXC [...] 07/23/2020 Time: 3:37 PM Normal [facility] Vital Signs Date Time Vital Sign Value Performing Clinician Facility 07-06-2025 18:04-0400 Body temperature 97.9 [degF] Dr. Americo Borrego MD Work Phone: [facility] 07-06-2025 18:04-0400 Diastolic blood pressure 74 mm[Hg] Dr. Americo Borrego MD Work Phone: [facility] 07-06-2025 18:04-0400 Heart rate 76 /min Dr. Americo Borrego MD Work Phone: [facility] 07-06-2025 18:04-0400 Respiratory rate 19 /min Dr. Americo Borrego MD Work Phone: [phone] [place] [address] 07-06-2025 18:04-0400 SaO2% (BldA) [Mass fraction] 98 % Dr. Americo Borrego MD Work Phone: [phone] [place] [address] 07-06-2025 18:04-0400 Systolic blood pressure 135 mm[Hg] Dr. Americo Borrego MD Work Phone: [phone])[phone] [place] [address] 07-06-2025 15:02-0400 Body height 177.[address] Americo Borrego MD Work Phone: [phone])[phone] [place] [address] 07-06-2025 15:02-0400 Body mass index (BMI) [Ratio] 40.1 kg/m2 Dr. Americo Borrego MD Work Phone: [phone] [address] 07-06-2025 15:02-0400 Body weight [address] Americo Borrego MD Work Phone: [facility] 04-12-2025 11:30-0400 Body mass index (BMI) [Ratio] 38.77 kg/m2 Americo Borrego MD Work Phone: [facility] 04-12-2025 11:30-0400 Body weight 126.1 kg Americo Borrego MD Work Phone: [facility] 04-12-2025 11:30-0400 Diastolic blood pressure 72 mm[Hg] Americo Borrego MD Work Phone: [facility] 04-12-2025 11:30-0400 Heart rate 76 /min Americo Borrego MD Work Phone: [facility] 04-12-2025 11:30-0400 Respiratory rate 18 /min Americo Borrego MD Work Phone: [facility] 04-12-2025 11:30-0400 SaO2% (BldA) [Mass fraction] 96 % Americo Borrego MD Work Phone: [facility] 04-12-2025 11:30-0400 Systolic blood pressure 124 mm[Hg] Americo Borrego MD Work Phone: [facility] 01-08-2025 10:59-0400 Body mass index (BMI) [Ratio] 38.04 kg/m2 Americo Borrego MD Work Phone: [facility] 01-08-2025 10:59-0400 Body weight 123.7 kg Americo Borrego MD Work Phone: [facility] 01-08-2025 10:59-0400 Diastolic blood pressure 80 mm[Hg] Americo Borrego MD Work Phone: [facility] 01-08-2025 10:59-0400 Heart rate 76 /min Americo Borrego MD Work Phone: [facility] 01-08-2025 10:59-0400 Respiratory rate 18 /min Americo Borrego MD Work Phone: [facility] 01-08-2025 10:59-0400 Systolic blood pressure 126 mm[Hg] Americo Borrego MD Work Phone: [facility] 08-24-2024 10:34-0500 Body mass index (BMI) [Ratio] 38.9 kg/m2 Americo Borrego MD Work Phone: [facility] 08-24-2024 10:34-0500 Body weight 126.5 kg Americo Borrego MD Work Phone: [facility] 08-24-2024 10:34-0500 Diastolic blood pressure 70 mm[Hg] Americo Borrego MD Work Phone: [facility] 08-24-2024 10:34-0500 Heart rate 68 /min Americo Borrego MD Work Phone: [facility] 08-24-2024 10:34-0500 Respiratory rate 18 /min Americo Borrego MD Work Phone: [facility] 08-24-2024 10:34-0500 SaO2% (BldA) [Mass fraction] 97 % Americo Borrego MD Work Phone: [facility] 08-24-2024 10:34-0500 Systolic blood pressure 110 mm[Hg] Americo Borrego MD Work Phone: [facility] 05-22-2024 09:32-0400 Body mass index (BMI) [Ratio] 38.56 kg/m2 Americo Borrego MD Work Phone: [facility] 05-22-2024 09:32-0400 Body temperature 97.39 [degF] Americo Borrego MD Work Phone: [facility] 05-22-2024 09:32-0400 Body weight 125.4 kg Americo Borrego MD Work Phone: [facility] 05-22-2024 09:32-0400 Diastolic blood pressure 62 mm[Hg] Americo Borrego MD Work Phone: [facility] 05-22-2024 09:32-0400 Heart rate 82 /min Americo Borrego MD Work Phone: [facility] 05-22-2024 09:32-0400 Respiratory rate 18 /min Americo Borrego MD Work Phone: [facility] 05-22-2024 09:32-0400 Systolic blood pressure 104 mm[Hg] Americo Borrego MD Work Phone: [facility] 05-14-2024 14:09-0400 Body mass index (BMI) [Ratio] 38.59 kg/m2 Matilde Moomaw PLATFORM BEATER.SALES SUPPORT COORDINATOR Work Phone: [facility] 05-14-2024 14:09-0400 Body temperature 97.5 [degF] Matilde Moomaw PLATFORM BEATER.SALES SUPPORT COORDINATOR Work Phone: [facility] 05-14-2024 14:09-0400 Body weight 125.5 kg Matilde Moomaw PLATFORM BEATER.SALES SUPPORT COORDINATOR Work Phone: [facility] 05-14-2024 14:09-0400 Diastolic blood pressure 74 mm[Hg] Matilde Moomaw PLATFORM BEATER.SALES SUPPORT COORDINATOR Work Phone: [facility] 05-14-2024 14:09-0400 Heart rate 95 /min Matilde Moomaw PLATFORM BEATER.SALES SUPPORT COORDINATOR Work Phone: [facility] 05-14-2024 14:09-0400 Respiratory rate 21 /min Matilde Moomaw PLATFORM BEATER.SALES SUPPORT COORDINATOR Work Phone: [facility] 05-14-2024 14:09-0400 SaO2% (BldA) [Mass fraction] 97 % Matilde Moomaw PLATFORM BEATER.SALES SUPPORT COORDINATOR Work Phone: [facility] 05-14-2024 14:09-0400 Systolic blood pressure 108 mm[Hg] Matilde Moomaw PLATFORM BEATER.SALES SUPPORT COORDINATOR Work Phone: [facility] 02-20-2024 12:46-0400 Body mass index (BMI) [Ratio] 40.61 kg/m2 Americo Borrego MD Work Phone: [facility] 02-20-2024 12:46-0400 Body weight 132.09 kg Americo Borrego MD Work Phone: [facility] 02-20-2024 12:46-0400 Diastolic blood pressure 74 mm[Hg] Americo Borrego MD Work Phone: [facility] 02-20-2024 12:46-0400 Heart rate 76 /min Americo Borrego MD Work Phone: [facility] 02-20-2024 12:46-0400 Respiratory rate 18 /min Americo Borrego MD Work Phone: [facility] 02-20-2024 12:46-0400 Systolic blood pressure 110 mm[Hg] Americo Borrego MD Work Phone: [facility] 01-29-2024 03:17-0400 Respiratory rate 17 /min [facility] 01-29-2024 03:17-0400 SaO2% (BldA) [Mass fraction] 99 % [facility] 01-29-2024 03:16-0400 Body temperature 97.4 [degF] [facility] 01-29-2024 03:16-0400 Diastolic blood pressure 65 mm[Hg] [facility] 01-29-2024 03:16-0400 Heart rate 82 /min [facility] 01-29-2024 03:16-0400 Systolic blood pressure 117 mm[Hg] [facility] 01-29-2024 00:03-0400 Body height 180.34 cm [facility] 01-29-2024 00:03-0400 Body mass index (BMI) [Ratio] 42.9 kg/m2 [facility] 01-29-2024 00:03-0400 Body weight 139.6 kg [facility] 11-26-2023 11:15-0500 Body temperature 97.59 [degF] Emil Luo MD Work Phone: [facility] 11-26-2023 11:15-0500 Body weight 134.45 kg Emil Luo MD Work Phone: [facility] 11-26-2023 11:15-0500 Diastolic blood pressure 90 mm[Hg] Emil Luo MD Work Phone: [facility] 11-26-2023 11:15-0500 Heart rate 94 /min Emil Luo MD Work Phone: [facility] 11-26-2023 11:15-0500 Respiratory rate 22 /min Emil Luo MD Work Phone: [facility] 11-26-2023 11:15-0500 SaO2% (BldA) [Mass fraction] 97 % Emil Luo MD Work Phone: [facility] 11-26-2023 11:15-0500 Systolic blood pressure 120 mm[Hg] Emil Luo MD Work Phone: [facility] 09-21-2023 15:52-0500 Body temperature 97.39 [degF] Chen Souza APRN.CNP Work Phone: [facility] 09-21-2023 15:52-0500 Body weight 134.63 kg Chen Souza PLATFORM BEATER.SALES SUPPORT COORDINATOR Work Phone: [facility] 09-21-2023 15:52-0500 Diastolic blood pressure 90 mm[Hg] Chen Harley PLATFORM BEATER.SALES SUPPORT COORDINATOR Work Phone: [facility] 09-21-2023 15:52-0500 Heart rate 89 /min Chen Souza PLATFORM BEATER.SALES SUPPORT COORDINATOR Work Phone: [facility] 09-21-2023 15:52-0500 Respiratory rate 26 /min Chen Souza PLATFORM BEATER.SALES SUPPORT COORDINATOR Work Phone: [facility] 09-21-2023 15:52-0500 SaO2% (BldA) [Mass fraction] 96 % Chen Souza PLATFORM BEATER.SALES SUPPORT COORDINATOR Work Phone: [facility] 09-21-2023 15:52-0500 Systolic blood pressure 139 mm[Hg] Chen Souza PLATFORM BEATER.SALES SUPPORT COORDINATOR Work Phone: [facility] 06-29-2023 13:52-0400 Body weight 137.89 kg Malika Sethi PLATFORM BEATER.SALES SUPPORT COORDINATOR Work Phone: [facility] 06-29-2023 13:52-0400 Diastolic blood pressure 70 mm[Hg] Malika Romerof PLATFORM BEATER.SALES SUPPORT COORDINATOR Work Phone: [facility] 06-29-2023 13:52-0400 Heart rate 80 /min Malika Romerof PLATFORM BEATER.SALES SUPPORT COORDINATOR Work Phone: [facility] 06-29-2023 13:52-0400 Respiratory rate 16 /min Malika Meadowshof PLATFORM BEATER.SALES SUPPORT COORDINATOR Work Phone: [facility] 06-29-2023 13:52-0400 SaO2% (BldA) [Mass fraction] 97 % Malika Romerof PLATFORM BEATER.SALES SUPPORT COORDINATOR Work Phone: [facility] 06-29-2023 13:52-0400 Systolic blood pressure 110 mm[Hg] Malika Meadowshof PLATFORM BEATER.SALES SUPPORT COORDINATOR Work Phone: [facility] 12-06-2022 15:01-0500 Diastolic blood pressure 78 mm[Hg] [facility] 12-06-2022 15:01-0500 Heart rate 81 /min [facility] 12-06-2022 15:01-0500 Respiratory rate 16 /min [facility] 12-06-2022 15:01-0500 SaO2% (BldA) [Mass fraction] 98 % [facility] 12-06-2022 15:01-0500 Systolic blood pressure 135 mm[Hg] [facility] 12-06-2022 11:19-0500 Body height 180.34 cm [facility] 12-06-2022 11:19-0500 Body mass index (BMI) [Ratio] 40.1 kg/m2 [facility] 12-06-2022 11:19-0500 Body temperature 97.4 [degF] [facility] 12-06-2022 11:19-0500 Body weight 130.4 kg [facility] Encounters Encounter Date Encounter Type Care Provider Facility Start: 08-18-2025 End: 08-18-2025 Emergency department patient visit Americo Borrego Facility:[facility] Start: 07-06-2025 End: 07-06-2025 Emergency department patient visit Dr. Melissa Holly DO -Emergency Department Work Phone: Start: 06-13-2025 End: 06-14-2025 Refill Americo Borrego MD Work Phone: [address] [place] [address] Comment on above: Refill Request Start: 04-12-2025 End: 04-12-2025 Office outpatient visit 25 minutes Americo Borrego MD Work Phone: [facility] [place] Comment on above: Type 2 diabetes shashank itus with hyperglycemia, with long-term current use of insulin (HCC) (Primary Dx); Depression, unspecified depression type; Mild asthma without complication, 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 persistent (HCC); Hyperlipidemia, unspecified hyperlipidemia type; Obstructive sleep apnea treated with BiPAP; Essential hypertension Start: 04-12-2025 End: 04-12-2025 ambulatory AMERICO BORREGO Facility:[facility] Start: 04-06-2025 End: 04-06-2025 ambulatory AMERICO BORREGO Facility:[facility] Start: 01-08-2025 End: 01-08-2025 ambulatory [facility] Facility:[facility] Start: 01-08-2025 End: 01-08-2025 Office outpatient visit 25 minutes Americo Borrego MD Work Phone: [facility] [place] Comment on above: Type 2 diabetes shashank itus without complication, 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 prison insulin use (HCC) (Primary Dx); Essential hypertension; Hyperlipidemia, unspecified hyperlipidemia type; Depression, unspecified depression type; FAISAL (generalized anxiety disorder); Gastroesophageal reflux disease, 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 esophagitis present; Mild asthma without complication, 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 persistent; Obstructive sleep apnea treated with BiPAP; Chronic obstructive pulmonary disease, unspecified COPD type (HCC); History of ileostomy Start: 12-22-2024 End: 12-22-2024 [facility] Start: 12-10-2024 End: 01-24-2025 Telephone encounter Dean Goldberg APRN.CNP Work Phone: Administration Comment on above: Medication Problem ( Med Refills) Start: 09-28-2024 End: 09-28-2024 Refill Americo Borrego MD Work Phone: [facility] [place] Comment on above: Refill Request Start: 09-12-2024 End: 09-12-2024 ambulatory Gem Perez RN [facility] Start: 09-12-2024 End: 09-12-2024 Patient encounter procedure Gem Perez RN [facility] Comment on above: TYLER SCHAEFER RN ( Medication Adherence Review at request of payer) Start: 08-27-2024 End: 08-27-2024 Telephone encounter Americo Borrego MD Work Phone: [facility] Comment on above: Medication Problem Start: 08-24-2024 End: 08-24-2024 ambulatory AMERICO BORREGO Facility:[facility] Start: 08-24-2024 End: 08-24-2024 Patient encounter [...] 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 persistent; Coronary artery disease involving [place] coronary artery of [place] heart without angina pectoris; Obstructive sleep apnea treated with BiPAP; Essential hypertension Start: 08-22-2024 End: 08-22-2024 ambulatory Malu Tirado MA [facility] [place] Start: 08-22-2024 End: 08-22-2024 Patient encounter procedure Malu Tirado MA [facility] Comment on above: Population Health Na vigation Outreach ([facility] MARTINEZ PCSA) Start: 08-11-2024 End: 08-11-2024 ambulatory [facility] Facility:[facility] Start: 06-06-2024 End: 06-06-2024 Refill Americo Borrego MD Work Phone: [facility] [place] Comment on above: Refill Request Start: 05-22-2024 End: 05-22-2024 ambulatory [facility] Facility:[facility] Start: 05-22-2024 End: 05-22-2024 Patient encounter procedure Americo Borrego MD Work Phone: [facility] [place] Comment on above: Hospital discharge f ollow-up (Primary Dx); Type 2 diabetes mellitus without complication, 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 prison insulin use (HCC); Essential hypertension; Hyperlipidemia, unspecified hyperlipidemia type; Depression, unspecified depression type; FAISAL (generalized anxiety disorder); Mild intermittent asthma without complication; Chronic obstructive pulmonary disease, unspecified COPD type (HCC); Gastroesophageal reflux disease, 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 esophagitis present; History of ileostomy; Encounter for screening examination for other mental health and behavioral disorders Start: 05-14-2024 End: 05-14-2024 ambulatory [facility] Facility:[facility] Start: 05-14-2024 End: 05-14-2024 Patient encounter procedure Matilde Gan APRN.CNP Work Phone: [facility] Comment on above: Left lower quadrant abdominal pain (Primary Dx) Start: 05-09-2024 End: 05-09-2024 ambulatory AMERICO BORREGO Facility:[facility] Start: 03-23-2024 Refill Americo walls MD Work Phone: [facility] Comment on above: Refill Request Start: 02-29-2024 Telephone encounter Margarita Moctezuma patti [facility] Work Phone: [facility] Comment on above: Appointment Start: 02-21-2024 Telephone encounter Kandace Bello send Roberto [facility] Comment on above: NEW PRIMARY CARE PHA RMACY APPT Start: 02-20-2024 End: 02-20-2024 Patient encounter procedure Americo Borrego MD Work Phone: [facility] Comment on above: Type 2 diabetes shashank itus without complication, 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 prison insulin use (HCC) (Primary Dx); Essential hypertension; [...] 01-29-2024 End: 01-29-2024 Emergency department patient visit [facility]gency Department Work Phone: Start: 01-25-2024 Refill Americo walls MD Work Phone: [facility] Comment on above: Refill Request Start: 11-30-2023 Refill Americo walls MD Work Phone: [facility] Comment on above: Refill Request Start: 11-26-2023 End: 11-26-2023 Patient encounter procedure Emil Luo MD Work Phone: [facility] Comment on above: Asthma with COPD wit h exacerbation (HCC) (HCC) (Primary Dx) Refill Request Start: 11-21-2023 Telephone encounter Americo springer MD Work Phone: [facility] [place] Comment on above: Excuse from Jury Dut y- Letter Start: 09-21-2023 End: 09-21-2023 Subsequent hospital visit by physician Devora [facility] [place] Work Phone: Radiology Comment on above: SOB (shortness of br eath) [R06.02] Start: 09-21-2023 End: 09-21-2023 Patient encounter procedure Chen Souza APRN.SALES SUPPORT COORDINATOR Work Phone: [facility] Comment on above: SOB (shortness of br eath) (Primary Dx); COPD with exacerbation (HCC) Start: 08-24-2023 Telephone encounter Americo springer MD Work Phone: [facility] [place] Comment on above: chest cold Refill Request Start: 06-29-2023 End: 06-29-2023 Patient encounter procedure Malika Sethi APRN.SALES SUPPORT COORDINATOR Work Phone: [facility] [place] Comment on above: Type 2 diabetes shashank itus without complication, 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 director hydrogen storage engineering insulin use (HCC) (Primary Dx); Essential hypertension; Hyperlipidemia, unspecified hyperlipidemia type; Depression, unspecified depression type; FAISAL (generalized anxiety disorder); Chronic obstructive pulmonary disease, unspecified COPD type (HCC); Gastroesophageal reflux disease, 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 esophagitis present; Obstructive sleep apnea treated with BiPAP; Encounter for screening for lung cancer Start: 06-24-2023 Refill Americo walls MD Work Phone: [facility] [place] Comment on above: Refill Request Start: 06-16-2023 Telephone encounter Americo springer MD Work Phone: [facility] Comment on above: Medication Problem Start: 04-25-2023 Refill Americo walls MD Work Phone: [facility] [place] Comment on above: Refill Request Start: 12-25-2022 Refill Americo walls MD Work Phone: [facility] [place] Comment on above: Refill Request Start: 12-06-2022 End: 12-06-2022 Emergency department patient visit [facility]Emergency Department Start: 11-26-2022 Refill Dean RIVERA RN.SALES SUPPORT COORDINATOR Work Phone: [facility] Comment on above: Refill Request Start: 07-09-2022 Refill Americo walls MD Work Phone: Family [facility] Comment on above: Refill Request; Refi ll Request Start: 07-04-2022 Refill Dean RIVERA RN.SALES SUPPORT COORDINATOR Work Phone: [facility] Comment on above: Refill Request Start: 06-30-2022 Telephone encounter Americo springer MD Work Phone: [facility] Comment on above: Insurance Authorizat ion ([employer] HFA) Start: 06-28-2022 Telephone encounter Americo springer MD Work Phone: Family [facility] Comment on above: Rx refill; not on cu rrent med list Start: 06-02-2022 Telephone encounter Americo springer MD Work Phone: [facility] Comment on above: Patient Update (Plea se fill his inhaler as soon as possible, ); Patient Question Start: 01-07-2022 End: 01-07-2022 ambulatory Americo Borrego MD Work Phone: [facility] Comment on above: Chronic obstructive pulmonary disease with acute exacerbation (HCC) (Primary Dx) Start: 01-07-2022 End: 01-07-2022 Telemedicine consultation with patient Americo Borrego MD Work Phone: [facility] Start: 01-04-2022 Telephone encounter Americo springer MD Work Phone: [facility] Comment on above: Question Procedures Date Procedure Procedure Detail Performing Clinician Start: 07-06-2025 Radiologic exam ches t [address] Americo Borrego MD Work Phone: Start: 01-29-2024 SARS-CoV-2, Influenz a & RSV (PCR) Start: 01-29-2024 Plain chest X-ray Start: 09-21-2023 Radiologic exam ches t 2 views Chen Harley PLATFORM BEATER.SALES SUPPORT COORDINATOR Work Phone: Start: 11-02-2019 Colonoscopy Americo pulido MD Work Phone: H/O: ileostomy History of ileostomy Americo Borrego MD Work Phone: H/O: ileostomy History of ileostomy Americo Borrego MD Work Phone: H/O: ileostomy History of ileostomy Americo Borrego MD Work Phone: Plan of Treatment Date Care Activity Detail Author Start: 05-16-2031 Urine microalbumin profile [facility] Start: 11-02-2029 Colonoscopy COLONOSCOPY [facility] Start: 11-02-2029 COLORECTAL CANCER SCREENING COLORECTAL CANCER SCREENING [facility] Start: 11-02-2029 Screening for malignant neoplasm of colon [facility] Start: 04-12-2026 Annual PCP Team Chronic Disease Visit Annual PCP Team Chronic Disease Visit [facility] Start: 04-12-2026 Pneumococcal Vaccine: 50+ (2 of 2 - PCV) Pneumococcal Vaccine: 50+ (2 of 2 - PCV) [facility] Comment on above: Postponed from 11/13/2020 (Declined at t his time) Start: 04-06-2026 Hepatitis B surface antibody level LDL Cholesterol [facility] Start: 02-09-2026 Prostate Cancer Screening Discussion Prostate Cancer Screening Discussion [facility] Start: 02-09-2026 Prostate specific antigen measurement Prostate Cancer Screening Discussion [facility] Start: 01-08-2026 Annual PCP Team Chronic Disease Visit Annual PCP Team Chronic Disease Visit [facility] Start: 12-22-2025 Hepatitis B surface antibody level LDL Cholesterol [facility] Start: 12-16-2025 End: 12-16-2025 Patient encounter procedure 12/16/2025 4:20 PM EST Office Visit Family Magalie Martinez [address] [place] [id number] Danielle Cedillo MD [address] [place] [id number] 6 month f/u Family Magalie Martinez Comment on above: 6 month f/u Start: 10-24-2025 Glaucoma screening Dilated Retinal Exam [facility] Start: 10-06-2025 Hemoglobin A1c measurement HbA1C [facility] Start: 08-24-2025 Annual PCP Team Chronic Disease Visit Annual PCP Team Chronic Disease Visit [facility] Start: 08-24-2025 BP Controlled (<130/80) BP Controlled (<130/80) [facility] Start: 08-24-2025 Covid-19 Vaccine () Covid-19 Vaccine () [facility] Comment on above: Postponed from 06/17/2024 (Declined at t his time) Start: 07-16-2025 End: 07-16-2025 Patient encounter procedure 07/16/2025 11:00 AM EDT Office Visit Family Magalie Martinez [address] [place] [address] Americo Borrego MD [address] [place] [address] 3 month follow up Family Magalie Martinez Comment on above: 3 month follow up Start: 07-13-2025 End: 10-12-2025 Comprehensive metabolic 2000 panel - Serum or Plasma COMPREHENSIVE METABOLIC PANEL Lab Routine Hyperlipidemia, unspecified hyperlipidemia type Type 2 diabetes mellitus with hyperglycemia, with long-term current use of insulin (HCC) Essential hypertension Expected: 07/13/2025 (Approximate), Expires: 10/12/2025 [facility] Work Phone: Comment on above: Expected: 07/13/2025 (Approximate), Expi res: 10/12/2025 Start: 07-13-2025 End: 10-12-2025 Hemoglobin A1c in Blood HEMOGLOBIN A1C Lab Routine Type 2 diabetes mellitus with hyperglycemia, with long-term current use of insulin (HCC) Expected: 07/13/2025 (Approximate), Expires: 10/12/2025 [facility] Comment on above: Expected: 07/13/2025 (Approximate), Expi res: 10/12/2025 Start: 07-13-2025 End: 10-12-2025 Lipid 1996 panel - Serum or Plasma LIPID PANEL, FASTING Lab Routine Hyperlipidemia, unspecified hyperlipidemia type Type 2 diabetes mellitus with hyperglycemia, with long-term current use of insulin (HCC) Essential hypertension Expected: 07/13/2025 (Approximate), Expires: 10/12/2025 [facility] Comment on above: Expected: 07/13/2025 (Approximate), Expi res: 10/12/2025 Start: 06-17-2025 Influenza vaccination [facility] Start: 05-22-2025 Annual PCP Team Chronic Disease Visit Annual PCP Team Chronic Disease Visit [facility] Start: 05-22-2025 Anxiety Screening Anxiety Screening [facility] Start: 05-22-2025 BP Controlled (<130/80) BP Controlled (<130/80) [facility] Start: 05-14-2025 BP Controlled (<130/80) BP Controlled (<130/80) [facility] Start: 05-09-2025 Hepatitis B screening Urine Albumin:Creatinine Ratio [facility] Start: 05-09-2025 Hepatitis B surface antibody level LDL Cholesterol [facility] Start: 04-15-2025 Influenza vaccination [facility] Comment on above: Postponed from 06/17/2024 (Declined at t his time) Start: 04-12-2025 End: 04-12-2025 Patient encounter procedure 04/12/2025 11:40 AM EDT Office Visit Family Medicine Michelle [address] [place], [place] [id number] Americo Borrego MD [address] [place], [place] [id number] 3 mo f/u Family Medicine [place] Comment on above: 3 mo f/u Start: 04-10-2025 End: 07-10-2025 Comprehensive metabolic 2000 panel - Serum or Plasma COMPREHENSIVE METABOLIC PANEL Lab Routine Type 2 diabetes mellitus without complication, 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 director hydrogen storage engineering insulin use (HCC) Hyperlipidemia, unspecified hyperlipidemia type Expected: 04/10/2025 (Approximate), Expires: 07/10/2025 [facility] Work Phone: Comment on above: Expected: 04/10/2025 (Approximate), Expi res: 07/10/2025 Start: 04-10-2025 End: 07-10-2025 Hemoglobin A1c in Blood HEMOGLOBIN A1C Lab Routine Type 2 diabetes mellitus without complication, 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 director hydrogen storage engineering insulin use (HCC) Expected: 04/10/2025 (Approximate), Expires: 07/10/2025 [facility] Comment on above: Expected: 04/10/2025 (Approximate), Expi res: 07/10/2025 Start: 04-10-2025 End: 07-10-2025 Lipid 1996 panel - Serum or Plasma LIPID PANEL, FASTING Lab Routine Type 2 diabetes mellitus without complication, 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 director hydrogen storage engineering insulin use (HCC) Hyperlipidemia, unspecified hyperlipidemia type Expected: 04/10/2025 (Approximate), Expires: 07/10/2025 [facility] Comment on above: Expected: 04/10/2025 (Approximate), Expi res: 07/10/2025 Start: 03-24-2025 Hemoglobin A1c measurement HbA1C [facility] Start: 02-19-2025 Annual PCP Team Chronic Disease Visit Annual PCP Team Chronic Disease Visit [facility] Start: 02-19-2025 BP Controlled (<130/80) BP Controlled (<130/80) [facility] Start: 02-19-2025 Covid-19 Vaccine () Covid-19 Vaccine () [facility] Comment on above: Postponed from 06/17/2023 (Declined at t his time) Start: 01-15-2025 Hepatitis B surface antibody level LDL Cholesterol [facility] Start: 11-29-2024 End: 11-29-2024 Patient encounter procedure 11/29/2024 11:00 AM EST Office Visit Family Magalie Martinez [address] [place] [address] Malika Sethi, PLATFORM BEATER.SALES SUPPORT COORDINATOR [address] [place] [address] 3 month follow up Family Medicine Michelle Comment on above: 3 month follow up Start: 11-24-2024 End: 02-23-2025 CBC W Auto Differential panel - Blood COMPLETE BLOOD COUNT AND DIFFERENTIAL Lab Routine Gastroesophageal reflux disease, 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 esophagitis present Hyperlipidemia, unspecified hyperlipidemia type Coronary artery disease involving [place] coronary artery of [place] heart without angina pectoris Expected: 11/24/2024 (Approximate), Expires: 02/23/2025 [facility] Comment on above: Expected: 11/24/2024 (Approximate), Expi res: 02/23/2025 Start: 11-24-2024 End: 02-23-2025 Comprehensive metabolic 2000 panel - Serum or Plasma COMPREHENSIVE METABOLIC PANEL Lab Routine Hyperlipidemia, unspecified hyperlipidemia type Type 2 diabetes mellitus with hyperglycemia, with long-term current use of insulin (HCC) Expected: 11/24/2024 (Approximate), Expires: 02/23/2025 [facility] Comment on above: Expected: 11/24/2024 (Approximate), Expi res: 02/23/2025 Start: 11-24-2024 End: 02-23-2025 Hemoglobin A1c in Blood HEMOGLOBIN A1C Lab Routine Type 2 diabetes mellitus with hyperglycemia, with long-term current use of insulin (HCC) Expected: 11/24/2024 (Approximate), Expires: 02/23/2025 [facility] Comment on above: Expected: 11/24/2024 (Approximate), Expi res: 02/23/2025 Start: 11-24-2024 End: 02-23-2025 Lipid 1996 panel - Serum or Plasma LIPID PANEL BASIC Lab Routine Hyperlipidemia, unspecified hyperlipidemia type Expected: 11/24/2024 (Approximate), Expires: 02/23/2025 [facility] Work Phone: Comment on above: Expected: 11/24/2024 (Approximate), Expi res: 02/23/2025 Start: 11-11-2024 Hemoglobin A1c measurement HbA1C [facility] Start: 10-17-2024 Medicare Advantage Annual Wellness Visit Medicare Advantage Annual Wellness Visit [facility] Start: 09-03-2024 End: 09-03-2024 Patient encounter procedure 09/03/2024 1:45 PM EST Office Visit [facility] [address] [place] [id number] Mia Pollack, OD [address] [place] [address] Type 2 diabetes mellitus without complication, 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 director hydrogen storage engineering insulin use (HCC) [E11.9] Ophthalmology Comment on above: Type 2 diabetes mellitus without complic ation, 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 director hydrogen storage engineering insulin use (HCC) [E11.9] Start: 08-24-2024 End: 08-24-2024 Patient encounter procedure Family Medicine Michelle Comment on above: 3 mo f/u A1c Start: 08-22-2024 End: 11-21-2024 CBC panel - Blood by Automated count COMPLETE BLOOD COUNT Lab Routine Essential hypertension Expected: 08/22/2024 (Approximate), Expires: 11/21/2024 [facility] Comment on above: Expected: 08/22/2024 (Approximate), Expi res: 11/21/2024 Start: 08-22-2024 End: 11-21-2024 Comprehensive metabolic 2000 panel - Serum or Plasma COMPREHENSIVE METABOLIC PANEL Lab Routine Type 2 diabetes mellitus without complication, 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 director hydrogen storage engineering insulin use (HCC) Essential hypertension Expected: 08/22/2024 (Approximate), Expires: 11/21/2024 [facility] Comment on above: Expected: 08/22/2024 (Approximate), Expi res: 11/21/2024 Start: 08-22-2024 End: 11-21-2024 Hemoglobin A1c in Blood HEMOGLOBIN A1C Lab Routine Type 2 diabetes mellitus without complication, 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 director hydrogen storage engineering insulin use (HCC) Expected: 08/22/2024 (Approximate), Expires: 11/21/2024 [facility] Work Phone: Comment on above: Expected: 08/22/2024 (Approximate), Expi res: 11/21/2024 Start: 08-14-2024 End: 08-14-2024 Patient encounter procedure 08/14/2024 10:00 AM EDT Office Visit [facility] [address] [place] [address] Mia Pollack, OD [address] [place] [address] Type 2 diabetes mellitus without complication, 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 prison insulin use (HCC) [E11.9] Ophthalmology Comment on above: Type 2 diabetes mellitus without complic ation, 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 prison insulin use (HCC) [E11.9] Start: 08-09-2024 Hemoglobin A1c measurement HbA1C [facility] Start: 06-29-2024 Annual PCP Team Chronic Disease Visit Annual PCP Team Chronic Disease Visit [facility] Start: 06-29-2024 BP Controlled (<130/80) BP Controlled (<130/80) [facility] Start: 06-29-2024 Hepatitis B Vaccine (1 of 3 - 19+ 3-dose series) Hepatitis B Vaccine (1 of 3 - 19+ 3-dose series) [facility] Comment on above: Postponed from 1987 (Declined at t his time) Start: 06-29-2024 Hepatitis B Vaccine (1 of 3 - 3-dose series) Hepatitis B Vaccine (1 of 3 - 3-dose series) [facility] Comment on above: Postponed from 1968 (Declined at t his time) Start: 06-29-2024 Shingrix Vaccine (1 of 2) Shingrix Vaccine (1 of 2) [facility] Comment on above: Postponed from 2018 (Declined at t his time) Start: 06-17-2024 Covid-19 Vaccine ( season) Covid-19 Vaccine ( season) [facility] Start: 06-17-2024 Covid-19 Vaccine ( season) Covid-19 Vaccine ( season) [facility] Start: 06-17-2024 Influenza vaccination [facility] Start: 05-22-2024 End: 08-21-2024 Comprehensive metabolic 2000 panel - Serum or Plasma COMPREHENSIVE METABOLIC PANEL Lab Routine Type 2 diabetes mellitus without complication, 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 director hydrogen storage engineering insulin use (HCC) Essential hypertension Hyperlipidemia, unspecified hyperlipidemia type Expected: 05/22/2024 (Approximate), Expires: 08/21/2024 [facility] Work Phone: Comment on above: Expected: 05/22/2024 (Approximate), Expi res: 08/21/2024 Start: 05-22-2024 End: 08-21-2024 Hemoglobin A1c in Blood HEMOGLOBIN A1C Lab Routine Type 2 diabetes mellitus without complication, 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 director hydrogen storage engineering insulin use (HCC) Expected: 05/22/2024 (Approximate), Expires: 08/21/2024 [facility] Comment on above: Expected: 05/22/2024 (Approximate), Expi res: 08/21/2024 Start: 05-22-2024 End: 08-21-2024 Lipid 1996 panel - Serum or Plasma LIPID PANEL BASIC Lab Routine Type 2 diabetes mellitus without complication, 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 director hydrogen storage engineering insulin use (HCC) Essential hypertension Hyperlipidemia, unspecified hyperlipidemia type Expected: 05/22/2024 (Approximate), Expires: 08/21/2024 [facility] Comment on above: Expected: 05/22/2024 (Approximate), Expi res: 08/21/2024 Start: 05-22-2024 End: 08-21-2024 Microalbumin/Creatinin e [Mass Ratio] in Urine ALBUMIN/CREATININE RATIO, URINE Lab Routine Type 2 diabetes mellitus without complication, 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 prison insulin use (HCC) Essential hypertension Expected: 05/22/2024 (Approximate), Expires: 08/21/2024 [facility] Comment on above: Expected: 05/22/2024 (Approximate), Expi res: 08/21/2024 Start: 05-22-2024 End: 05-22-2024 Patient encounter procedure Pulmonary Medicine Comment on above: Encounter for screening for lung cancer [Z12.2] 3 mo f/u Start: 05-22-2024 End: 05-22-2024 ambulatory [facility] Comment on above: Encounter for screening for lung cancer [Z12.2] Start: 04-16-2024 Hemoglobin A1c measurement HbA1C [facility] Start: 04-15-2024 Influenza vaccination [facility] Vacc[facility] Comment on above: Postponed from 06/17/2023 (Declined at t his time) Start: 03-30-2024 Hepatitis B surface antibody level LDL CHOLESTEROL [facility] Start: 03-29-2024 ANNUAL PCP TEAM CHRONIC DISEASE VISIT ANNUAL PCP TEAM CHRONIC DISEASE VISIT [facility] Start: 03-29-2024 COVID-19 VACCINE (#1) COVID-19 VACCINE (#1) [facility] Comment on above: Postponed from 1968 (Declined at t his time) Start: 02-22-2024 End: 02-22-2024 ambulatory 02/22/2024 9:45 AM EDT Procedure [facility] [address] [place] [address] W[address], Pulm Lab [facility] [address] [place] [address] Chronic obstructive pulmonary disease, unspecified COPD type (HCC) [J44.9] [facility] Comment on above: Chronic obstructive pulmonary disease, u nspecified COPD type (HCC) [J44.9] Start: 01-29-2024 [facility] Start: 12-23-2023 Hemoglobin A1c measurement HbA1C [facility] Start: 09-28-2023 End: 11-28-2023 Comprehensive metabolic 2000 panel - Serum or Plasma COMP METABOLIC PANEL Lab Routine Type 2 diabetes mellitus without complication, 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 prison insulin use (HCC) Expected: 09/28/2023, Expires: 11/28/2023 [facility] Work Phone: Comment on above: Expected: 09/28/2023, Expires: Start: 09-28-2023 End: 11-28-2023 Hemoglobin A1c in Blood HGB A1C Lab Routine Type 2 diabetes mellitus without complication, 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 prison insulin use (HCC) Expected: 09/28/2023, Expires: 11/28/2023 [facility] Work Phone: Comment on above: Expected: 09/28/2023, Expires: Start: 09-22-2023 Hemoglobin A1c/Hemoglobin.total in Blood HBA1C [facility] Start: 06-30-2023 Hemoglobin A1c/Hemoglobin.total in Blood HBA1C [facility] Start: 06-17-2023 Covid-19 Vaccine ( season) Covid-19 Vaccine () [facility] Start: 06-17-2023 Influenza vaccination INFLUENZA (#1) [facility] Start: 01-07-2023 ANNUAL PCP TEAM CHRONIC DISEASE VISIT ANNUAL PCP TEAM CHRONIC DISEASE VISIT [facility] Start: 12-25-2022 End: 02-24-2023 CBC panel - Blood by Automated count CBC Lab Routine Essential hypertension Expected: 12/25/2022 (Approximate), Expires: 02/24/2023 [facility] Work Phone: Comment on above: Expected: 12/25/2022 (Approximate), Expi res: 02/24/2023 Start: 12-25-2022 End: 02-24-2023 Comprehensive metabolic 2000 panel - Serum or Plasma COMP METABOLIC PANEL Lab Routine Hyperlipidemia, unspecified hyperlipidemia type Controlled type 2 diabetes mellitus without complication, with long-term current use of insulin (HCC) Essential hypertension Expected: 12/25/2022 (Approximate), Expires: 02/24/2023 [facility] Work Phone: Comment on above: Expected: 12/25/2022 (Approximate), Expi res: 02/24/2023 Start: 12-25-2022 End: 02-24-2023 Hemoglobin A1c in Blood HGB A1C Lab Routine Controlled type 2 diabetes mellitus without complication, with long-term current use of insulin (HCC) Expected: 12/25/2022 (Approximate), Expires: 02/24/2023 [facility] Work Phone: Comment on above: Expected: 12/25/2022 (Approximate), Expi res: 02/24/2023 Start: 12-25-2022 End: 02-24-2023 Lipid 1996 panel - Serum or Plasma LIPID PANEL BASIC Lab Routine Hyperlipidemia, unspecified hyperlipidemia type Controlled type 2 diabetes mellitus without complication, with long-term current use of insulin (HCC) Essential hypertension Expected: 12/25/2022 (Approximate), Expires: 02/24/2023 [facility] Work Phone: Comment on above: Expected: 12/25/2022 (Approximate), Expi res: 02/24/2023 Start: 09-08-2022 Hepatitis B surface antibody level LDL CHOLESTEROL [facility] Start: 06-17-2022 Influenza vaccination INFLUENZA (#1) [facility] Start: 04-15-2022 Influenza vaccination INFLUENZA (#1) [facility] Comment on above: Postponed from 06/17/2021 (Declined at t his time) Start: 04-06-2022 Glaucoma screening Dilated Retinal Exam [facility] Start: 04-06-2022 Hepatitis C antibody, confirmatory test DILATED RETINAL EXAM [facility] Start: 12-09-2021 Hemoglobin A1c/Hemoglobin.total in Blood HBA1C [facility] Start: 11-13-2020 PNEUMOCOCCAL (2 - PCV) PNEUMOCOCCAL (2 - PCV) [facility] Start: 01-28-2021 Pneumococcal vaccination [facility] Start: 11-13-2020 Pneumococcal Vaccine: 50+ (2 of 2 - PCV) Pneumococcal Vaccine: 50+ (2 of 2 - PCV) [facility] Start: 07-29-2019 Hepatitis B screening URINE ALBUMIN:CREATININE RATIO [facility] Start: 2018 Influenza vaccination LUNG CANCER SCREENING [facility] Start: 2018 Screening for malignant neoplasm of lung Lung Cancer Screening [facility] Start: 2018 SHINGRIX VACCINE (1 of 2) SHINGRIX VACCINE (1 of 2) [facility] Start: 12-05-2015 3 comp foot exam completed DIABETIC FOOT EXAM [facility] Start: 12-05-2015 Diabetic foot examination Diabetic Foot Exam [facility] Start: 06-28-2014 FECAL OCCULT BLOOD FECAL OCCULT BLOOD [facility] Start: 06-28-2014 Screening for malignant neoplasm of colon Fecal Occult Blood [facility] Start: 2013 COLOGUARD (FIT-DNA) COLOGUARD (FIT-DNA) [facility] Start: [address] COLONOGRAPHY [facility] Start: 2013 Screening for malignant neoplasm of colon [facility] Start: 2013 SIGMOIDOSCOPY SIGMOIDOSCOPY [facility] Start: 1998 Zoledronic acid therapy ALPHA-1 ANTITRYPSIN DEFICIENCY SCREENING [facility] Start: 1987 Hepatitis B Vaccine (1 of 3 - 19+ 3-dose series) Hepatitis B Vaccine (1 of 3 - 19+ 3-dose series) [facility] Start: 1986 Anxiety Screening Anxiety Screening [facility] Start: 1986 BP CONTROLLED (<130/80) BP CONTROLLED (<130/80) [facility] Start: 1973 COVID-19 VACCINE (1) COVID-19 VACCINE (1) [facility] Start: 1968 COVID-19 VACCINE (#1) COVID-19 VACCINE (#1) [facility] Start: 1968 HEPATITIS B (1 of 3 - 3-dose series) HEPATITIS B (1 of 3 - 3-dose series) [facility] COVID & INFLUENZA A/ B & RSV NAAT, ROUTINE COVID & INFLUENZA A/B & RSV NAAT, ROUTINE Microbiology Routine Asthma with COPD with exacerbation (HCC) (HCC) Ordered: 11/26/2023 [facility] Work Phone: Comment on above: Ordered: 11/26/2023 Patient Education [facility] Work Phone: Patient referral [facility] Work Phone: End: 03-21-2025 SPIROMETRY - BASELINE AND POST DILATOR SPIROMETRY - BASELINE AND POST DILATOR PFT Routine Chronic obstructive pulmonary disease, unspecified COPD type (HCC) 1 Occurrences starting 02/20/2024 until 03/21/2025 [facility] Comment on above: 1 Occurrences starting 02/20/2024 until 03/21/2025 [place] [facility] Immun[facility] Immunization Date Immunization Notes Care Provider Fa ciliamee 05-16-2021 tetanus toxoid, redu bianca diphtheria toxoid, and acellular pertussis vaccine, adsorbed Americo Borrego MD Work Phone: [facility] Work Phone: 11-13-2019 pneumococcal polysaccharide vaccine, 23 valent Americo Borrego MD Work Phone: [facility] 07-31-2018 influenza virus vacc ine, unspecified formulation Malika Sethi APRN.CNP Work Phone: [facility] 07-30-2011 influenza virus vacc ine, unspecified formulation Americo Borrego MD Work Phone: [facility] Work Phone: 11-23-2010 pneumococcal polysaccharide vaccine, 23 valent Americo Borrego MD Work Phone: [facility] 11-23-2010 pneumococcal vaccine , unspecified formulation [facility] 08-11-2010 influenza virus vacc ine, unspecified formulation Americo Borrego MD Work Phone: [facility] Work Phone: 07-12-2009 influenza virus vacc ine, unspecified formulation Americo Borrego MD Work Phone: [facility] Work Phone: 08-11-2008 influenza virus vacc ine, unspecified formulation Americo Borrego MD Work Phone: [facility] Work Phone: 08-11-2008 pneumococcal polysaccharide vaccine, 23 valent Americo Borrego MD Work Phone: [facility] Work Phone: 05-02-2006 tetanus and diphther ia toxoids, adsorbed, preservative free, for adult use (2 Lf of tetanus toxoid and 2 Lf of diphtheria toxoid) Americo Borrego MD Work Phone: [facility] 10-17-2005 tetanus toxoid, adsorbed Dahlia Borrego MD Work Phone: [facility] Work Phone: Payers Date Payer Category Payer Self-pay [id number] 2025 Unknown [id number] 2025 [facility] [id number] 2023 Medicare (Managed Care) [id number] 2023 Unknown [id number] 2022 Medicare [id number] 2022 Medicaid [id number] 2019 Medicaid [employer] [facility] MEDICAID [id number] 2019-Present [phone] [address] [place] [address] Medicaid [id number] 2019 Medicaid [id number] 2016 Unknown [id number] Medicare [id number] Unknown [facility] [id number] Unknown [id number] Unknown [id number] Social History Date Type Detail Facility Start: 05-07-2015 End: 07-06-2025 Tobacco smoking status NHIS Ex-smoker [facility] Start: 1983 End: 04-02-2015 History of tobacco use Current smoker [facility] Start: 1983 End: 04-02-2015 History of tobacco use Cigarette Smoker [facility] Start: 05-07-2015 End: 03-29-2023 Cigarettes smoked current (pack per day) - Reported 1.5 [facility] Start: 05-07-2015 End: 08-24-2024 Tobacco use and exposure User of smokeless tobacco [facility] History of tobacco use Chews Tobacco [facility] Start: 09-09-2021 End: 04-12-2025 Alcohol intake Current non-drinker of alcohol (finding) [facility] Start: 01-07-2022 History SDOH Housing Unable to Pay 3 [facility] Start: 12-08-2015 End: 03-29-2023 Tobacco Comment Both parents smoked in childhood. Lived with smokers as adult. No one in current home currently smokes. [facility] Start: 1970 Sex Assigned At Male C [facility] Start: 12-28-2021 End: 01-07-2022 Exposure to SARS-CoV-2 (event) Not sure [facility] Start: 12-06-2022 End: 01-29-2024 Tobacco smoking status NHIS Unknown if ever smoked [facility] Start: 08-06-2019 Rare [facility] Start: 08-06-2019 None [facility] Start: 08-06-2019 Spouse/ Signif icant Other [facility] Start: 08-06-2019 Non-smoker [facility] Start: 01-07-2022 End: 03-29-2023 Tobacco use panel [facility] Start: 09-17-2012 National Score (1-10 0), lower number is lower risk 47 [facility] Start: 04-30-2020 Gender identity Identifies as male gender (finding) [facility] Start: 04-30-2020 Sexual orientation Heterosexual (fin ding) [facility] Are you now , , , , never or living with a partner? Refused [facility] (I/We) worried venkatesh er (my/our) food would run out before (I/we) got money to buy more. DK or Refused [facility] Medical Equipment Procedure Code Equipment Code Equipment Original Text Equipment Identifier Dates [id number], [id number], [id number], [id number] Start: 06-12-2021 End: 04-12-2025 Comment on above: [...] 11/13/2019 1:30 PM Shun Ceron RN No [facility] 11-13-2019 Are you blind, or do you have serious difficulty seeing, even when wearing glasses No 11/13/2019 1:30 PM Shun Ceron RN No [facility] 11-13-2019 Do you have serious difficulty walking or climbing stairs No 11/13/2019 1:30 PM Shun Ceron RN No [facility] 11-13-2019 Do you have difficul ty dressing or bathing No 11/13/2019 1:30 PM Shun Ceron RN No [facility] 11-13-2019 Because of a physica l, mental, or emotional condition, do you have difficulty doing errands alone such as visiting a physician's office or shopping No 11/13/2019 1:30 PM Shun Ceron RN No [facility] Mental Status Date Assessment Result Facility 11-13-2019 Because of a physica l, mental, or emotional condition, do you have serious difficulty concentrating, remembering, or making decisions No 11/13/2019 1:30 PM Shun Ceron RN No [facility] Clinical Notes 11-12-2019 to 07-06-2025 Note Date & Type Note Facility 07-06-2025 Discharge summary [facility] 07-06-2025 Radiology Diagnostic study note [facility] Imaging Services [address] [place] [id number] Chest PA and Lateral MR#: [id number] Acct: [id number] Name: ELIEL SOUZA Rep #: [id number] : 1970 M 55 From: Ronni Archuleta MD PCP: Dr. Americo Borrego MD Status: RE G ER Study:Chest PA and Lateral Date of Exam: 07/06/25 Exam# [id number] Ordering Dr: Deena Holly DO PROCEDURE: CHEST PA AND LATERAL 07/06/2025 REASON FOR EXAM: COUGH, SOB TECHNIQUE: Procedure Code: RADCXR Modality: DX Procedure: CHEST PA AND LATERAL COMPARISON: Chest x-ray January 29, 2024. Prior report is not available FINDINGS: Lungs: The lungs are symmetrically expanded. Lung volumes are within normal limits. There is no consolidation. Mildly coarsened reticular lung markings again noted likely secondary to chronicinterstitial thickening. There is no peribronchial thickening. There is no pulmonary vascular redistribution. Pleura: No significant pleural effusion seen. There is no evidence of pneumothorax. Mediastinum: There is no mediastinal widening or mediastinal shift. Heart: The cardiac silhouette is not enlarged. Javan: The pulmonary javan are not enlarged or retracted. Osseous: No acute fracture is seen. Slight bony deformity along the right lateral mid chest wall likely due to old injuries. RAD/Chest PA and Lateral IMPRESSION: No radiographic evidence of an acute pulmonary infiltrate. - Other findings discussed above. Reading Location: [id number] CC: Dr. Melissa Holly DO; Dr. Americo Borrego MD ~ Wood Inspector: Signed [facility] 07-06-2025 Discharge summary Note Date/Time July 06, 2025 6:11pm [facility] Medical Records Department [address] [place] [address] Emergency Department Summary 07/06/25 MR#: [id number] Acct: [id number] Name: ELIEL SOUZA Rep #:[id number] : 1970 55 From: Melissa Ba PCP: Dr. Americo Borrego MD Status:RE G ER Location: ED HPI History of Present Illness Chief Complaint: Shortness of Breath Informant: patient Narrative Narrative: Patient is a 55-year-old male with history of pneumonia, COPD, obstructive sleepapnea (notes not recently been compliant with his CPAP), hypertension, diabetes mellitus, DVT (not currently on anticoagulation) presenting with worsening shortness of breath and wheezing. Patient states he has had URI symptoms for the past 2 to 4 days. Started with nasal congestion that moved down to sore throat and then settled in his chest. He feels that despite using his nebulizers last night he just could not catch his breath. He denies any fevers. Denies any swelling of his legs. Denies any chest pain. States he is coughingand it is a wet cough but is not getting it up appropriately. Because he could not catch his breath EMS was called and he came to the emergency room. He notesthat he used to be able to call his doctor and get a prescription for prednisonewhen these things happen (he states this feels like a COPD exacerbation) but nowhe has to be seen and he has not been able to get in. Denies any associated nausea, vomiting or change in bowel movements.'s are for any urinary symptoms. As he is having some mild abdominal pain but feels more like it sore from coughing a lot. No other complaints or concerns per at this time. [facility] Medical History Diverticulitis Femur fracture Rib fracture H. pylori infection Cholecystitis Fatty liver Depression BPH (benign prostatic hyperplasia) DVT (deep venous thrombosis) GERD (gastroesophageal reflux disease) Diverticula of colon HTN (hypertension) COPD (chronic obstructive pulmonary disease) Diabetes mellitus Home Medications ?Medication ?Instructions ?Recorded ?Last Taken ?Type albuterol sulfate 2.5 mg/3 mL 2.5 mg inhalation Q6H TN N PRN Sob 01/03/16 11/18/16 04:00 History (0.083 %) solution for nebulization &/Or Wheezing atorvastatin 40 mg tablet 40 mg PO QHS 01/03/16 History citalopram 20 mg tablet 30 mg PO DAILY 01/03/1607/18 History glimepiride 2 mg tablet 2 mg PO DAILY 01/03/1608/06 History lisinopril 10 mg tablet 10 mg PO DAILY 01/03/1607/18 History fluticasone furoate 100 1 ea IH DAILY ##1 05/25/16 1 Rx mcg-vilanterol 25 mcg/dose inhalation powder (Breo Ellipta) albuterol sulfate 90 mcg/actuation 2 puff inhalation Q 2H PRN PRN 11/20/16 08/06/19 Rx aerosol inhaler [...] mg tablet 25 mg PO DAILY 05/14/24 Unk nown History (Jardiance) insulin lispro 100 unit/mL 30 unit subcut QPM 05/14/24 Unknown History subcutaneous pen ondansetron 4 mg disintegrating 4 mg PO Q8H PRN PRN Na usea #14 tabs 05/14/24 Unknown Rx tablet azithromycin 250 mg tablet See Rx Instructions PO .COM PLEX #6 07/06/25 Unknown Rx tabs prednisone 20 mg tablet 40 mg (2 x 20 mg) PO DAILY # 8 tabs 07/06/25 Unknown Rx Allergy/AdvReac Type Severity Reaction Status Date / Time No Known Allergies Allergy Verified 05/14/24 20:15 Social History household members: none Smoking Status: Former smoker substance use type: does not use ROS ROS ED Constitutional Constitutional ED: Denies chills or fever(s) Cardiovascular Cardiovascular: Denies chest pain or palpitations Respiratory/Chest Respiratory/Chest: Reports cough, dyspnea and sputum Gastrointestinal Gastrointestinal: Reports abdominal pain; Denies diarrhea, nausea or vomiting Musculoskeletal Musculoskeletal: Denies arthralgias or myalgias Integumentary Denies rash Neurologic Neurologic: Denies weakness Hematologic/Lymphatic Hematologic/Lymphatic: Denies easy bleeding or easy bruising EXAM Physical Exam Const Vital Signs: 07/06/25 15:02 07/06/25 15:02 07/06/25 15:07 Temperature 97.7 F L 97.7 F L Temperature Source Oral Oral Pulse Rate 80 80 Respiratory Rate 20 H 20 H Respiratory Effort Short of Breath Respiratory Depth Normal Respiratory Pattern Tachypnea Blood Pressure 164/94 H 164/94 H Blood Pressure Mean 117 117 Pulse Ox 99 99 Oxygen Delivery Method Room Air Room Air 07/06/25 15:42 07/06/25 15:43 07/06/25 16:25 Temperature 97.9 F Temperature Source Oral Pulse Rate 92 92 72 Respiratory Rate 20 H 20 H 20 H Respiratory Effort Respiratory Depth Respiratory Pattern Tachypnea Blood Pressure 157/106 H Blood Pressure Mean 123 Pulse Ox 93 93 Oxygen Delivery Method Room Air Room Air 07/06/25 16:58 07/06/25 17:29 Temperature 97.9 F Temperature Source Oral Pulse Rate 86 81 Respiratory Rate 19 H 14 Respiratory Effort Respiratory Depth Respiratory Pattern Normal Blood Pressure 135/78 H Blood Pressure Mean 97 Pulse Ox 97 Oxygen Delivery Method Room Air Positive well nourished and well developed General Appearance ED: well developed and NAD HEENT Reports moist mucous membranes HEENT Narrative: Nasal congestion present. Air-fluid level noted behind the right tympanic membrane. No signs of otitis media bilaterally. Normal ear canals present. Mildly injected oropharynx present. Eyes PERRL Neck supple and no JVD Resp Resp Narrative: Course/rhonchorous breath sounds throughout. No crackles appreciated. Auscultation: Negative for wheezes or diminished lung sounds Cardio regular rate, regular rhythm and no murmurs Cardio Narrative: 2+ radial and PT pulses GI non-tender, non-distended and no masses Palpation: soft; Negative for tender or guarding Extremity normal to inspection General Extremety ED: Negative for edema General Extremity: Negative for edema Neuro oriented x3 Sensorium / Orientation: alert Motor Exam: Negative for general weakness Psych mental status grossly normal Skin no wounds MDM MDM MDM Narrative Medical decision making narrative: Patient evaluated for about 3 to 4 days of worsening URI symptoms that is now causing shortness of breath. He is 99% on room air and does not appear to be in any type of respiratory distress. He has rhonchorous breath sounds and his presentation is most consistent with COPD exacerbation. It was preceded by a viral illness. Patient be given DuoNeb in the emergency room and will obtain screening EKG as he does have a history of coronary artery disease. Patient would prefer to not obtain blood work at this time possible especially as he currently does not have insurance. While remy have a history of DVT his presentation is much more consistent with COPD exacerbation/pneumonia and I have a lower clinical suspicion for PE especially as he is not tachycardic, hypoxic nor tachypneic. He does not have any clinicalsigns or symptoms consistent with a DVT. Patient given a DuoNeb. Repeat evaluation he still feels short of breath and heactually has increased wheezing and respiratory noises. Given additional 2 albuterol's with further improvement. Chest x-ray viewed by myself as well as urology does not show any acute process, specifically no pneumothorax, pleural effusion or infiltrates. Patient is feeling much better. He still has some expiratory wheezing but has improved air movement as well as improvement in his feeling of breathing. He isambulated in the ER with no hypoxia. Will discharge him home with a prescription for azithromycin and prednisone and treat him as a viral illness with associated COPD exacerbation. Counseled importance of using his aerosols at home as well as resuming his BiPAP. Given return precautions. Discharged home in stable condition. Radiography Diagnostic Testing: Clinical Impression(s) from Imaging Studies Chest X-Ray 07/06/25 15:55 IMPRESSION: No radiographic evidence of an acute pulmonary infiltrate. - Other findings discussed above. Reading Location: [id number] Rhythm Strip Rhythm Strip: Sinus Rhythm Rate: 82 Ectopy: None EKG Initial EKG: Attestation: I personally reviewed and interpreted this EKG as follows: Interpretation: Sinus Rhythm Comments: Normal sinus rhythm rate of 82 bpm Normal axis Normal intervals Normal ST segments Discharge Plan Triage Chief Complaint: Shortness of Breath ED Provider: Melissa Holly Dx/Rx/DC Orders Clinical Impression: Viral illness, COPD exacerbation Instructions: ED COPD Flare, ED Viral Syndrome (Adult) Prescriptions: New prednisone 20 mg tablet 40 mg PO DAILY Qty: 8 0RF azithromycin 250 mg tablet See Rx Instructions .ROUTE .COMPLEX Qty: 6 0RF Rx Instructions: For 250 mg dose pack: take 500 mg today (day 1), then 250 mg for 4 days (days2-5) No Action atorvastatin 40 MG tablet 40 [...] Comments: breathing omeprazole 40 MG capsule,delayed release(DR/EC) 40 mg PO BID insulin detemir U-100 100 UNITS/ML insulin pen 50 units subcut QHS ibuprofen 800 MG tablet 800 mg PO Q8H PRN (Reason: Pain 1-10 Or Fever) loperamide [Imodium A-D] 2 mg capsule 2 mg PO Q4H PRN (Reason: loose stool) Qty: 10 0RF Rx Instructions: administer after each loose stool until symptoms controlled; do not exceed 8 mg per 24 hrs Jardiance 25 mg tablet 25 mg PO DAILY insulin lispro 100 unit/mL insulin pen 30 unit subcut QPM ondansetron 4 mg tablet,disintegrating 4 mg PO Q8H PRN PRN (Reason: Nausea) Qty: 14 0RF Primary Care Provider: Americo Borrego Referrals: Americo Borrego MD [Primary Care Provider, [facility]] Activity Restrictions/Additional Instructions: Use your nebulizer every 4-6 hours as needed for shortness of breath and chest tightness. He do not have a pneumonia today. If you are worsening despite starting the treatments today please return to the emergency room at that time we might need to do blood work or consider admission. Please resume your CPAP at night as we discussed. If you develop a fever pleasereturn to the emergency room. I Suspect you have a viral illness that is causing a COPD exacerbation Print Language: Belizean Disposition Disposition: Home, Self Care What to do if you have Problems For any increased pain, shortness of breath, bleeding, nausea or vomiting, chestpain, or any unexpected problems, contact your Primary Care Provider. Call [facility] ([phone]) or report to the closest Emergency Room. Call 911 if necessary. 07/06/25 1811 <Electronically signed by Melissa Holly DO> Cosigner Signature (if applicable): CC: Dr. Americo Borrego MD ~ Signed [facility] Work Phone: [phone] 864-338708-29-2025 Telephone encounter Note* Telephone Encounter - Americo Borrego MD - 06/14/2025 8:35 AM EDT OK to refill as ordered Americo Borrego MD [facility]08-29-2025 Miscellaneous Notes* Telephone Encounter - Americo Borrego MD - 06/14/2025 8:35 AM EDT OK to refill as ordered Americo Borrego MD * Telephone Encounter - Franca Kruger - 06/13/2025 12:00 PM EDT Prescription Refill Information The patient has been [...] 13, 2025 12:01 PM documented in this encounterBlanchard Valley [facility] System08-28-2025 Telephone encounter Note * Telephone Encounter - Franca Kruger - 06/13/2025 12:00 PM EDT Prescription Refill Information The patient has been [...] Franca Sheets June 13, 2025 12:01 PM [facility]2025 History of Present illness Narrative* Americo Borrego MD - 04/12/2025 11:40 AM EDT Chief Complaint Patient presents with: F/U 3 [...] tx as needed. Not following with any field contact technician's. Does get Shortness of Breath if he [...] HISTORY Diagnosis Date CAD (coronary artery disease), [place] coronary artery 2014 No PCI indicated. no clay worker needed Closed fracture of femur ([facility]) 11/2010 Depressive disorder, not elsewhere classified Diabetes mellitus type 2 in obese DVT of lower extremity (deep venous thrombosis) ([facility]) 11/2010 left Esophageal reflux Essential hypertension CATY (obstructive sleep apnea) CPAP needs another sleep study machine set too high Pelvic fracture ([facility]) Seasonal allergic rhinitis Unspecified asthma(493.90) Diagnosed in [...] in no acute distress, well-hydrated, well nourished. andObese. Lungs: scattered rhonchi andwheezing. Heart: RRR without [...] Follow up in 3 months Recording using [employer] software for draft documentation of the visit was discussed with the patient/authorized loan representative; all questions welcomed and answered. Patient/authorized loan representative agreed to proceed I agree with the Chief Complaint, ROS, and Past Histories independently gathered by the clinical it support analyst and the remaining scribed note accurately describes [...] AM. Zulma Gloria MA documented in this encounterBlanchard Valley Health System2025 NoteHNO ID: [id number] Author: AMERICO BORREGO MD Service: ? Author [...] tx as needed. Not following with any field contact technician's. Does get Shortness of Breath if he [...] HISTORY Diagnosis Date CAD (coronary artery disease), [place] coronary artery 2014 No PCI indicated. no clay worker needed Closed fracture of femur ([facility]) 11/2010 Depressive disorder, not elsewhere classified Diabetes mellitus type 2 in obese DVT of lower extremity (deep venous thrombosis) ([facility]) 11/2010 left Esophageal reflux Essential hypertension CATY (obstructive sleep apnea) CPAP needs another sleep study machine set too high Pelvic fracture ([facility]) Seasonal allergic rhinitis Unspecified asthma(493.90) Diagnosed in [...] strip Test blood sugar(s) (more content not included)...[facility]03-25-2025 History of Present illness Narrative* Americo Borrego MD - 01/08/2025 11:00 AM EDT Chief Complaint Patient presents with: F/U 3 [...] lows. Feels he's may be starting to getonset of neuropathy due to foot pain, burning [...] eat a lot due to becoming nauseas. Exercisesa lot with walking. Walks the dog regularly. [...] HISTORY Diagnosis Date CAD (coronary artery disease), [place] coronary artery 2014 No PCI indicated. no clay worker needed Closed fracture of femur ([facility]) 11/2010 Depressive disorder, not elsewhere classified Diabetes mellitus type 2 in obese DVT of lower extremity (deep venous thrombosis) ([facility]) 11/2010 left Esophageal reflux Essential hypertension CATY [...] 12/22/2024 2.93 Monocytes % 12/22/2024 6.1 Abs Webb 12/22/2024 0.46 Eosinophils % 12/22/2024 5.3 Abs Eosin 12/22/2024 0.40 Basophils % 12/22/2024 0.9 Abs Baso 12/22/2024 0.07 Immature Granulocytes % 12/22/2024 0.7 Abs Immature Gran 12/22/2024 0.05 NRBC 12/22/2024 0.0 Absolute nRBC 12/22/2024 <0.01 Diff Type 12/22/2024 Auto LDL Cholesterol, Direct 12/22/2024 65 VLDL Cholesterol 12/22/2024 62 (H) ASSESSMENT/PLAN: 1. Type 2 diabetes mellitus without complication, 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 prison insulin use (HCC) -ICD9: 250.00, ICD10: E11.9 (primary diagnosis) - Improving [...] Moderate Americo Borrego MD documented in this encounterBlanchard Valley Health System03-25-2025 NoteHNO ID: [id number] Author: AMERICO BORREGO MD Service: ? Author [...] HISTORY Diagnosis Date CAD (coronary artery disease), [place] coronary artery 2014 No PCI indicated. 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 Previous Surgical History PAST SURGICAL HISTORY Procedure Laterality Date COLONOSCOPY FLX DX W/COLLJ SPEC WHEN PFRMD 11/04/10 Normal colon COLONOSCOPY FLX DX W/COLLJ SPEC WHEN PFRMD 01/21/16 few diverticula EGD TRANSORAL BIOPSY SINGLE/MULTIPLE 11/04/10 duodenitis EGD TRANSORAL BIOPSY SINGLE/MULTIPLE 01/21/16 minimal gastritis EXC TUMOR SUBQ [facility]ATH,PERCUTANEOUS 2013 Cardiac cath, L [...] as needed for (more content not included)... [facility]02-24-2025 Telephone encounter Note* Telephone Encounter - Dean Goldberg APRN.CNP - 12/10/2024 1:37 PM EST Does he need albuterol nebulizer solution or inhaler? What was the name of the third medication that he was requesting? Dean Goldberg APRN.CNP [facility]02-24-2025 Miscellaneous Notes* Telephone Encounter - Dean Goldberg APRN.CNP - 12/10/2024 1:37 PM EST Does he need albuterol nebulizer solution or inhaler? What was the name of the third medication that he was requesting? Dean Goldberg APRN.CNP * Telephone Encounter - Brendon Villareal - 12/10/2024 1:34 PM EST Patient called asking for medication refills. Mentioned Albuterol and Lisinopril. Also mentioned one other but I could not find that in his records. documented in this encounterBlanchard Valley Health System02-24-2025 Telephone encounter Note * Telephone Encounter - Brendon Villareal - 12/10/2024 1:34 PM EST Patient called asking for medication refills. Mentioned Albuterol and Lisinopril. Also mentioned one other but I could not find that in his records. [facility]12-13-2024 Telephone encounter Note* Telephone Encounter - Dean Goldberg APRN.CNP - 09/28/2024 12:16 PM EST The following approved medication requests [...] 1/2 hr before meal. Dean Goldberg APRN.CNP [facility]12-13-2024 Miscellaneous Notes* Telephone Encounter - Dean Goldberg APRN.CNP - 09/28/2024 12:16 PM EST The following approved medication requests [...] Dean Goldberg APRN.CNP * Telephone Encounter - Ashley Rehman - 09/28/2024 11:40 AM EST Prescription Refill Information The patient has been [...] 28, 2024 11:43 AM documented in this encounterBlanchard Valley Health System12-13-2024 Telephone encounter Note * Telephone Encounter - Ashley Rehman - 09/28/2024 11:40 AM EST Prescription Refill Information The patient has been [...] Ashley Sheets September 28, 2024 11:43 AM [facility]11-27-2024 NoteHNO ID: [id number] Author: GEM PEREZ RN Service: ? Author [...] was due for refill on 07/27/24 at [facility] LISINOPRIL TAB 20MG is due for refill on 09/26/24 at [facility] Lisinopril refilled 09/28. Call placed to patient on 09/1824 regarding Atorvastatin. Has not been refilled. NALM. Patient Attributed To: QAE Payer: [employer] Private Action Taken: Data submitted to [employer] message to patient Contact made with patient: No, Chart review only. Signature: Gem Perez RNPremier [facility]11-27-2024 History of Present illness Narrative* Gem Perez RN - 09/12/2024 9:29 AM EST ACM SILVANO RN Reason for review or outreach: Medication Adherence review per request of payer Medication Adherence Review Details: Cholesterol and Hypertension FYI / ACTION REQUEST: Patient identified by name and date of Summary/Findings of review: ATORVASTATIN TAB 40MG was due for refill on 07/27/24 at [facility] LISINOPRIL TAB 20MG is due for refill on 09/26/24 at [facility] Patient Attributed To: QAE Payer: [employer] Private Action Taken: Data submitted to [employer] message to patient Contact made with patient: No, Chart review only. Signature: Gem Perez RN documented in this encounterBlanchard Valley Health System11-27-2024 NotePatient Outreach (NETNAV) ELIEL SOUZA ([id number]) 1970 M Date Time Provider Department 09/12/24 [...] was due for refill on 07/27/24 at [facility] LISINOPRIL TAB 20MG is due for refill on 09/26/24 at [facility] pharmacy Lisinopril refilled 09/28. Call placed to patient on 09/1824 regarding Atorvastatin. Has not been refilled. NALM. Patient Attributed To: HANNAH Payer: [employer] Private Action Taken: Data submitted to [employer] Qoiza message to patient Contact made with patient: No, Chart review only. Signature: Gem Perez RN Allergies As of Date: 09/12/2024 (No Known Allergies) Date Reviewed: 08/24/2024 Reviewed by: Zulma Gloria MA - Fully Assessed Reason for Visit: ACM SILVANO RN [[id number]] Cmt: Medication Adherence Review at request of [...] with hyperglycemia, wi* Coronary artery disease involving [place] ragland*07/05/2014 Obstructive sleep apnea treated with BiPAP [G47*07/05/2014 COPD with exacerbation (HCC) [J44.1] 02/25/2015 Essential hypertension [I10] 08/07/2015 LLQ abdominal pain [R10.32] (more content not included)...[facility]11-11-2024 Telephone encounter Note* Telephone Encounter - Americo Borrego MD - 08/27/2024 6:11 PM EST Jaylin ordered Americo Borrego MD [facility]11-11-2024 Miscellaneous Notes* Telephone Encounter - Americo Borrego MD - 08/27/2024 6:11 PM EST Jaylin ordered Americo Borrego MD * Telephone Encounter - Mary Jane Wade RN - 08/27/2024 1:25 PM EST Phong, pharmacist @ [facility] calling to let provider know that Levemir has been discontinued. He is asking for new script for alternative. He mentioned Tresiba, Lantus. Please review and advise. Mary Jane Wade RN documented in this encounterBlanchard Valley Health System11-11-2024 Telephone encounter Note * Telephone Encounter - Mary Jane Wade RN - 08/27/2024 1:25 PM EST Phong, pharmacist @ [facility] calling to let provider know that Levemir has been discontinued. He is asking for new script for alternative. He mentioned Tresiba, Lantus. Please review and advise. Mary Jane Wade RN [facility]11-08-2024 History of Present illness Narrative* Americo Borrego MD - 08/24/2024 10:40 AM EST Chief Complaint Patient presents with: F/U 3 [...] does get some anxiety when [place]. His chest gets a little heavy. CATY: Stable with use of BiPAP at 23/17 cm of water. Uses machine unsure if he can notice a notice asignificant difference with or without it. HTN: Does [...] HISTORY Diagnosis Date CAD (coronary artery disease), [place] coronary artery 2014 No PCI indicated. no clay worker needed Closed fracture of femur ([facility]) 11/2010 Depressive disorder, not elsewhere classified Diabetes mellitus type 2 in obese DVT of lower extremity (deep venous thrombosis) ([facility]) 11/2010 left Esophageal reflux Essential hypertension CATY (obstructive sleep apnea) CPAP needs another sleep study machine set too high Pelvic fracture ([facility]) Seasonal allergic rhinitis Unspecified asthma(493.90) Diagnosed in [...] in no acute distress, well-hydrated, well nourished. andObese. Lungs: Lungs clear to auscultation. No wheezing, [...] long-term current use of insulin (HCC) - ICD9:250.00, 790.29, V58.67, ICD10: E11.65, Z79.4 (primary diagnosis) [...] with Pulm 7. Coronary artery disease involving [place] coronary artery of [place] heart without angina pectoris- ICD9: 414.01, ICD10: I25.10 Continue current medications. [...] Past Histories independently gathered by the clinical it support analyst and the remaining scribed note accurately describes [...] AM. Zulma Gloria MA documented in this encounterBlanchard Valley Health System11-08-2024 NoteHNO ID: [id number] Author: AMERICO BORREGO MD Service: ? Author [...] does get some anxiety when [place]. His chest gets a [...] HISTORY Diagnosis Date CAD (coronary artery disease), [place] coronary artery 2014 No PCI indicated. 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 Previous Surgical History PAST SURGICAL HISTORY Procedure Laterality Date COLONOSCOPY FLX DX W/COLLJ SPEC WHEN PFRMD 11/04/10 Normal colon COLONOSCOPY FLX DX W/COLLJ SPEC WHEN PFRMD 01/21/16 few diverticula EGD TRANSORAL BIOPSY SINGLE/MULTIPLE 11/04/10 duodenitis EGD TRANSORAL BIOPSY SINGLE/MULTIPLE 01/21/16 minimal gastritis EXC TUMOR SUBQ [facility]ATH,PERCUTANEOUS 2013 Cardiac cath, L [...] times daily. Dx: Typ (more content not included)...[facility] 08-22-2024 NoteHNO ID: [id number] Author: MALU TIRADO MA Service: ? Author Type: Senior Asic Design Engineer Type: Progress Notes Filed: 08/22/2024 13:07 Note Text: POPULATION HEALTH NAVIGATION OUTREACH Action/FYI INVALID NUMBER Any[employer]af MESSAGE SENT ANNUAL MEDICARE WELLNESS CHRIS FLU Reason for Outreach Care Gap/HCC or Scheduling Wellness Visits Care Gaps due: Medicare Annual Wellness Visit Diabetic Eye Exam Flu Vaccine Patient Contacted: Unable or unnecessary to reach patient: Unable to leave message Qoiza message sent Navigation Signature: Malu Tirado MA August 22, 2024 7:57 [facility]11-06-2024 History of Present illness Narrative* Malu Tirado MA - 08/22/2024 7:57 AM EST POPULATION HEALTH NAVIGATION OUTREACH Action/FYI INVALID NUMBER [employer]af MESSAGE SENT ANNUAL MEDICARE WELLNESS CHRIS FLU Reason for Outreach Care Gap/HCC or Scheduling Wellness Visits Care Gaps due: Medicare Annual Wellness Visit Diabetic Eye Exam Flu Vaccine Patient Contacted: Unable or unnecessary to reach patient: Unable to leave message Qoiza message sent Navigation Signature: Malu Tirado MA August 22, 2024 7:57 AM documented in this encounterBlanchard Valley Health System11-06-2024 NotePatient Outreach (NETNAV) ELIEL SOUZA ([id number]) 1970 M Date Time Provider Department 08/22/24 MALU TIRADO NETKATHARINE During your visit today, we recorded the following information about you: Malu Tirado MA 08/22/2024 1:07 PM Signed POPULATION HEALTH NAVIGATION OUTREACH Action/I INVALID NUMBER [employer]af MESSAGE SENT ANNUAL MEDICARE WELLNESS CHRIS FLU Reason for Outreach Care Gap/HCC or Scheduling Wellness Visits Care Gaps due: Medicare Annual Wellness Visit Diabetic Eye Exam Flu Vaccine Patient Contacted: Unable or unnecessary to reach patient: Unable to leave message Qoiza message sent Navigation Signature: Malu Tirado MA August 22, 2024 7:57 AM Allergies As of Date: 08/22/2024 (No Known Allergies) Date Reviewed: 05/22/2024 Reviewed by: Lluvia Bright MA - Fully Assessed Reason for Visit: Population Health Navigation Outreach [3910] Cmt: [facility] WORKBENCDeirdre MARTINEZ PCSA Prescriptions as of 08/22/2024 - insulin [...] with hyperglycemia, wi* Coronary artery disease involving [place] ragland*07/05/2014 Obstructive sleep apnea treated with BiPAP [...] 05/03/2020 Hydrocele [N43.3] 09/03/2020 (more content not included)...[facility]08-21-2024 Telephone encounter Note* Telephone Encounter - Malika Sethi APRN.SALES SUPPORT COORDINATOR - 06/06/2024 3:02 PM EDT The following approved medication requests have been transmitted electronically. Requested Prescriptions Pending Prescriptions Disp Refills insulin detemir U-100 (LEVEMIR FLEXTOUCH U-100 INSULIN) 100 unit/mL (3 mL) injection pen 10 Each 5 Sig: Inject 40 Units subcutaneously two times a day. Malika Sethi APRN.GISSELL [facility]08-21-2024 Miscellaneous Notes* Telephone Encounter - Malika Sethi APRN.CNP - 06/06/2024 3:02 PM EDT The following approved medication requests have been transmitted electronically. Requested Prescriptions Pending Prescriptions Disp Refills insulin detemir U-100 (LEVEMIR FLEXTOUCH U-100 INSULIN) 100 unit/mL (3 mL) injection pen 10 Each 5 Sig: Inject 40 Units subcutaneously two times a day. Malika Sethi APRN.GISSELL * Telephone Encounter - Lizzette Garcia RN - 06/06/2024 11:07 AM EDT MANOJ Martinez, reports pcp sent Rx for Levemir to dispense 8 each. States each box has 5 pens and they cannot split up the box. Asking if pcp can send Rx to read 10 pens and they will dispense 2 boxes.Pended. Last ov: 05-22-24 documented in this encounterBlanchard Valley Health System08-21-2024 Telephone encounter Note * Telephone Encounter - Lizzette Garcia RN - 06/06/2024 11:07 AM EDT MANOJ Martinez, maria g pcp sent Rx for Levemir to dispense 8 each. States each box has 5 pens and they cannot split up the box. Asking if pcp can send Rx to read 10 pens and they will dispense 2 boxes.Pended. Last ov: 05-22-24 [facility]08-06-2024 Instructions* Patient Instructions* Americo Borrego MD - 05/22/2024 10:00 AM EDT Decrease Levemir insulin to 40 units twice daily Decrease Humalog to 20 units with dinner documented in this encounterBlanchard Valley Health System08-06-2024 History of Present illness Narrative* Americo Borrego MD - 05/22/2024 9:40 AM EDT Chief Complaint Patient presents with: F/U 3 Month HPI Eliel Souza is a 53 year old male who presents here today for 3 month follow up. Has handicap placard due to COPD/Asthma causing SOB. No bowel, gi, or urinary issues. Hx of Ileostomy. Was seen at [facility] ED on 05/14/24 for abdominal pain.Has hx of GI issues with no f/u with GI. Pt had work up done and was d/c home with Ermias. Admits to not taking it but maybe should have. Thought he got food poisoning a month ago. Started with diarrhea, vomiting, body aches, dizziness and general feeling of being unwell. Was dx with viral illness.Since that time he continues to not feel [...] left worse. Taking Jardiance 10 mg daily, Enpgjqe93 units BID, and Humalog 30 units PM. [...] as needed. Is not following with any Dividend Deposit Entry Clerk, was referred to one last visit and is scheduled with Dr. Baird on 05/22/24. CATY: Stable with use of BiPAP at 23/17 cm of water. Uses machine unsure if he can notice a notice asignificant difference with or without it. HM - Anxiety screening completed, negative. Is due for an Eye Exam, needs to find someone who takeshis Insurance. Pt has had multiple Pneumonia vaccines, last one in 2019. Past medical history, appointments, medications, allergies reviewed. Previous Medical History PAST MEDICAL HISTORY 2014: CAD (coronary artery disease), [place] coronary artery Comment: No PCI indicated. no clay worker needed 11/2010: Closed fracture of femur (HCC) [...] Vaccine(1 of 2) due on 06/29/2024 Covid-19 Vaccine(1 - season) due on 02/19/2025 Influenza Vaccine(1) [...] 2 diabetes mellitus without complication, 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 prison insulin use (HCC) -ICD9: 250.00, ICD10: E11.9 - Improving control Cut [...] Moderate Americo Borrego MD documented in this encounterBlanchard Valley Health System08-06-2024 NoteHNO ID: [id number] Author: AMERICO BORREGO MD Service: ? Author Type: Physician Type: Progress Notes Filed: 05/22/2024 11:48 Note Text: Chief Complaint Patient presents with: F/U 3 Month HPI Eliel Souza is a 53 year old male who presents here today for 3 month follow up. Has handicap placard due to COPD/Asthma causing SOB. No bowel, gi, or urinary issues. Hx of Ileostomy. Was seen at [facility] ED on 05/14/24 for abdominal pain. Has [...] as needed. Is not following with any Dividend Deposit Entry Clerk, was referred to one last visit and [...] MEDICAL HISTORY 2014: CAD (coronary artery disease), [place] coronary artery Comment: No PCI indicated. no clay worker needed 11/2010: Closed fracture of femur (HCC) [...] Puffs as instructed every (more content not included)...[facility]07-29-2024 NoteHNO ID: [id number] Author: MATILDE GAN APRN.SALES SUPPORT COORDINATOR Service: ? Author Type: Nurse Practitioner Type: Progress Notes Filed: 05/14/2024 14:30 Note Text: This note was created using MobileDayriter. Subjective Eliel Souza is a 53 year [...] going to an emergency room. Matilde Gan APRN.[facility]07-29-2024 History of Present illness Narrative* Matilde Gan APRN.[facility] - 05/14/2024 2:22 PM EDT This note was created using NoteWriter. Subjective Eliel Souza is a 53 year [...] going to an emergency room. Matilde Gan APRN.SALES SUPPORT COORDINATOR documented in this encounterBlanchard Valley Health System06-07-2024 Telephone encounter Note * Telephone Encounter - Americo Borrego MD - 03/23/2024 3:06 PM EDT OK to refill as ordered Americo Borrego MD [facility]06-07-2024 Miscellaneous Notes* Telephone Encounter - Americo Borrego MD - 03/23/2024 3:06 PM EDT OK to refill as ordered Americo Borrego MD * Telephone Encounter - Gaviota Higgins - 03/23/2024 2:20 PM EDT Patient has been identified by [...] Thank you. Gaviota Higgins. documented in this encounterBlanchard Valley Health System06-07-2024 Telephone encounter Note * Telephone Encounter - Gaviota Higgins - 03/23/2024 2:20 PM EDT Patient has been identified by [...] 05/22/2024 Please advise. Thank you. Gaviota Higgins. [facility]05-15-2024 Telephone encounter Note* Telephone Encounter - Margarita Valles RP - 02/29/2024 1:43 PM EDT Patient recently referred to PharmD team by PCP. PSS unable to reach after several attempts. Calledpatient again and unable to reach. Forwarding to PCP as FYI that unable to schedule patient for initial PharmD visit. Margarita Valles PharmD, [facility] Primary Care Clinical Pharmacist [facility] Work Phone: [phone] Miscellaneous Notes* Telephone Encounter - Margarita Valles RPh - 02/29/2024 1:43 PM EDT Patient recently referred to PharmD team by PCP. PSS unable to reach after several attempts. Calledpatient again and unable to reach. Forwarding to PCP as FYI that unable to schedule patient for initial PharmD visit. Margarita Valles PharmD, [facility] Primary Care Clinical Pharmacist documented in this encounterBlanchard Valley Health System05-08-2024 Telephone encounter Note * Telephone Encounter - Kandace Alicea PSS - 02/22/2024 9:04 AM EDT Telephoned the patient to schedule a new Primary Care pharmacy appt. Left a message. Made two attempts to contact the patient. Patient has not returned the call. If the patient returns a call, an appt will be scheduled. Encounter routed to the clinical pharmacist. [facility]05-08-2024 Miscellaneous Notes* Telephone Encounter - Kandace Alicea PSS - 02/22/2024 9:04 AM EDT Telephoned the patient to schedule a new Primary Care pharmacy appt. Left a message. Made two attempts to contact the patient. Patient has not returned the call. If the patient returns a call, an appt will be scheduled. Encounter routed to the clinical pharmacist. * Telephone Encounter - Kandace Alicea PSS - 02/21/2024 2:10 PM EDT Telephoned the patient to schedule a new Primary Care pharmacy appt. Left a message. documented in this encounterBlanchard Valley Health System05-07-2024 Telephone encounter Note * Telephone Encounter - Kandace Alicea PSS - 02/21/2024 2:10 PM EDT Telephoned the patient to schedule a new Primary Care pharmacy appt. Left a message. [facility]05-06-[facility] History of Present illness Narrative* Americo Borrego MD - 02/20/2024 12:40 PM EDT Chief Complaint Patient presents with: F/U 6 Month HPI Eliel Souza is a 53 year old male who presents here today for a 6 month follow up. Pt here today for his routine follow up and lab review. Pt seen at [facility] ED on 01/29/24 for a cough. GI/Uro [...] times. Does not follow with Podiatry, is notopposed to see them. On current regimen of Levemir 45 units twice daily, Humalog 30 units with dinner and Jardiance 10 mg once daily. Is overdue for DM eye exam. Reports that he has to find somewherethat takes his Insurance. FAISAL/Depression - On current regimen of Celexa 20 mg 1.5 tablets daily. Doing well on this dosage. COPD/Ashtma - Breathing varies, does get sob. States that he's had a couple flare ups over the pastmonth. Reports he had to stop at a Fire Station about a month ago due to forgetting his Inhaler. Also notes he went to the ED and dx with COPD exacerbations. Unsure if this is related to allergies orthe weather changing. Currently using Breo Ellipta Inhaler [...] HISTORY Diagnosis Date CAD (coronary artery disease), [place] coronary artery 2014 No PCI indicated. no clay worker needed Closed fracture of femur (HCC) 11/2010 Depressive disorder, not elsewhere classified Diabetes mellitus type 2 in obese (HCC) ([facility]) DVT of lower extremity (deep venous thrombosis) ([facility]) 11/2010 left Esophageal reflux Essential hypertension CATY (obstructive sleep apnea) CPAP needs another sleep study machine set too high Pelvic fracture ([facility]) Seasonal allergic rhinitis Unspecified asthma(493.90) Diagnosed in [...] in no acute distress, well-hydrated, well nourished. andObese. Lungs: Lungs clear to auscultation. + wheezing on exam No rhonchi, rales. Heart: RRR without murmur, gallop, or rubs. No ectopy. Health Maintenance List Alpha-1 Antitrypsin Deficiency Screening Never done Diabetic Foot Exam due on 12/05/2015 Lung Cancer Screening Never done Urine Albumin:Creatinine Ratio due on 07/29/2019 Pneumococcal Vaccine(2 of 2 - PCV) due on 11/13/2020 Dilated Retinal Exam due on 04/06/2022 Covid-19 Vaccine(1 - season) Never done Hepatitis B Vaccine(1 [...] 2 diabetes mellitus without complication, 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 prison insulin use (HCC) -ICD9: 250.00, ICD10: E11.9 (primary diagnosis) - Uncontrolled [...] Past Histories independently gathered by the clinical it support analyst and the remaining scribed note accurately describes [...] PM. Lluvia Bright MA documented in this encounterBlanchard Valley Health System04-14-2024 Discharge summary Author Bruce Dong [facility] January 29, 2024 2:44am Note Date/Time January 29, 2024 12: 55am [facility] Medical Records Department [address] [place] [address] Emergency Department Summary 01/29/24 MR#: [id number] Acct: [id number] Name: ELIEL SOUZA Rep #:[id number] : 1970 53 From: Bruce Dong DO [...] pulse ox was 95% on room air [facility] Medical History BPH (benign prostatic hyperplasia) Cholecystitis [...] (Auto) 46.1 L Lymph % (Auto) 39.1 Webb % (Auto) 7.4 Eos % (Auto) 4.7 [...] 2:17 EDT Reading Location ID and State: [facility] / [place] Tel , Service support , 2 view chest x-ray as interpreted [...] problems, contact your Primary Care Provider. Call [facility] ([phone]) or report to the closest Emergency Room. Call 911 if necessary. 01/29/24 0244 <Electronically signed by Bruce Dong DO> Cosigner Signature (if applicable): CC: Dr. Americo Borrego MD ~ Signed [facility] Work Phone: [phone] Miscellaneous Notes* Telephone Encounter - Dean Goldberg APRN.GISSELL - 01/25/2024 2:43 PM EDT The following approved medication requests have been transmitted electronically. Requested Prescriptions Pending Prescriptions Disp Refills albuterol HFA (PROVENTIL HFA, VENTOLIN HFA) 90 mcg/actuation inhaler 1 Each 0 Sig: Inhale 2 Puffs as instructed every 4 hours as needed for wheezing/shortness of breath. Dean Goldberg APRN.SALES SUPPORT COORDINATOR * Telephone Encounter - Rhona Cardoza LPN - 01/25/2024 1:35 PM EDT TAYA-09/21/26 Labs-01/16/24 NOV-02/20/24 Rhona Cardoza LPN * Telephone Encounter - Victoria Santos [...] not found Please advise. Thank you. Victoria Lancaster. documented in this encounterBlanchard Valley Health System02-14-2024 Miscellaneous Notes* Telephone Encounter - Malika Sethi APRN.CNP - 11/30/2023 6:52 PM EST The [...] Thank you. Annalise Sheets. documented in this encounterBlanchard Valley Health System02-12-2024 Miscellaneous Notes* Telephone Encounter - Malika Sethi [...] two times a day. Malika Sethi APRN.CNP * Telephone Encounter - Malika Patterson - 11/26/2023 10:38 AM EST Patient has been identified by name and date of : Yes, [facility] Patient [facility] for refill(s): Requested Prescriptions Pending [...] Thank you. Malika Patterson. documented in this encounterBlanchard Valley Health System02-10-2024 History of Present illness Narrative* Emil Luo [...] onsetfever. Emil Luo MD documented in this encounterBlanchard Valley Health System02-06-2024 Miscellaneous Notes* Telephone Encounter - Lluvia Bright Ma - 11/22/2023 8:17 AM EST Call to pt and notified him that letter has been written and is available for picking supervisor today at Medical Records after 12:00 pm. Letter forwarded to Medical Records. Lluvia Bright Ma * Telephone Encounter - Americo Borrego MD - 11/21/2023 7:33 PM EST Letter done Americo Borrego MD * Telephone Encounter - Franca Goode RN - 11/21/2023 2:25 PM EST Pt reports he received a letter for upcoming jury duty at the [facility] [address]. Asking if PCP would write a letter excusing him from jury duty due to his GI history and use of bathroom frequently. Patient would like called once letter is ready for picking supervisor, if provider agreeable to completing letter. Franca Goode, RN documented in this encounterBlanchard Valley Health System12-06-2023 History of Present illness Narrative* Samina Cruz [...] 21, 2023 4:06 PM documented in this encounterBlanchard Valley Health System12-06-2023 History of Present illness Narrative* Chen Souza APRN.SALES SUPPORT COORDINATOR - 09/21/2023 3:53 PM EST This note was created using MobileDayriter. Subjective Eliel Souza is a 53 year [...] - AZITHROMYCIN 250 MG TABLET Chen Souza APRN.SALES SUPPORT COORDINATOR documented in this encounterBlanchard Valley Health System11-08-2023 Miscellaneous Notes* Telephone Encounter - Ayse Lawrence [...] notify patient. Mandi Sheets documented in this encounterBlanchard Valley Health System11-08-2023 Miscellaneous Notes* Telephone Encounter - Mary Jane [...] calling: self Call patient at: at home [phone] (home) Was an appointment scheduled: No Patient said he has COPD. Said he has a chest cold and Dr. Borrego usually prescribes prednisonewhen he gets a chest cold. Would like direction. Closing statement: Symptom Call: Thank you for calling [facility], your call is very important. A nurse will call in approximately 2-4 hours during business hours. If this is an emergency, please contact 911. Mandi Sheets documented in this encounterBlanchard Valley Health System09-13-2023 Instructions* Patient Instructions* Malika Sethi APRN.SALES SUPPORT COORDINATOR - 06/29/2023 2:06 PM EDT Start Jardiance [...] sugar level consistently (80-130) documented in this encounterBlanchard Valley Health System09-13-2023 History of Present illness Narrative* Malika Sethi [...] HISTORY Diagnosis Date CAD (coronary artery disease), [place] coronary artery 2014 No PCI indicated. no clay worker needed Closed fracture of femur ([facility]) 11/2010 Depressive disorder, not elsewhere classified Diabetes mellitus type 2 in obese ([facility]) DVT of lower extremity (deep venous thrombosis) ([facility]) 11/2010 left Esophageal reflux Essential hypertension CATY (obstructive sleep apnea) CPAP needs another sleep study machine set too high Pelvic fracture ([facility]) Seasonal allergic rhinitis Unspecified asthma(493.90) Diagnosed in [...] 2 diabetes mellitus without complication, 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 prison insulin use (HCC) -ICD9: 250.00, ICD10: E11.9 [...] APRN.CNP This note was partially generated using Appscio voice recognition system. Note was reviewed for accuracy. There may be minor misspellings or grammar miscues with Appscio voice recognition. documented in this encounterBlanchard Valley Health System09-08-2023 Miscellaneous Notes* Telephone Encounter - Dean Goldberg [...] notify patient. Deyanira Bazzi documented in this encounterBlanchard Valley Health System08-31-2023 Miscellaneous Notes* Telephone Encounter - Lluvia Bright [...] or jardiance please send to pharmacy/ [facility] [place] for next RX pick-up. Please notify patient of provider response, phone number [phone] Patient has been identified by name and birthdate. Person calling: self Call patient at: on cell [phone] (home) [phone] (cell) Was an appointment scheduled: No Closing statement: Results or non-symptom based questions: Thank you for calling [facility], your call will be returned within the next business day. Victoria Lancaster documented in this encounterBlanchard Valley Health System07-10-2023 Miscellaneous Notes* Telephone Encounter - Americo Borrego [...] Insulins were not sent to pharmacy in update only. RX INSTRUCTIONS: Patient aware RX will be sent to pharmacy. No need to notify patient. Deyaniracristóbal Bazzi documented in this encounterBlanchard Valley Health System03-17-2023 Miscellaneous Notes* Telephone Encounter - Zulma Gloria [...] Gloria Ma * Telephone Encounter - Manjula Sterlingkirstin Pss - 12/25/2022 9:28 AM EST Patient [...] with breakfast. Please review and advise. Manjula Sterlingkirstin Sheets documented in this encounterBlanchard Valley Health System02-20-[address] Whiteside [facility] December 06, 2022 2:25pm Note Date/Time December 06, 2022 12:02pm [facility] Medical Records Department [address] [place] [address] Emergency Department Summary 12/06/22 MR#: [id number] Acct: [id number] Name: ELIEL SOUZA Rep #:[id number] : 1970 52 From: Sameer Whiteside MD [...] Prior similar symptoms: Yes Recent Illness/Hospitalization: No [facility] Medical History (Updated 12/06/22 @ [...] 73.9 H Lymph % (Auto) 12.2 L Webb % (Auto) 11.6 H Eos % (Auto) [...] follows: Interpretation: Sinus Rhythm (Rate is 90. [place] to the right. [place] intervalis under 68 ms. QRS duration 98 [...] your Primary Care Provider. Call [facility] ([phone]) or report to the closest Emergency Room. Call 911 if necessary. 12/06/22 1425 <Electronically signed by Sameer Whiteside MD> Cosigner Signature (if applicable): CC: Dr. Americo Borrego MD ~ Signed [facility] Work Phone: [phone] 309-363002-10-2023 Miscellaneous Notes* Telephone Encounter - Americo Borrego MD - 11/26/2022 4:30 PM EST OK to refill as ordered Americo Borrego MD * Telephone Encounter - Lluvia Bright Ma - 11/26/2022 4:25 PM EST Last OV: 01/07/22 virtually. Next OV: None Last Rx: 11/03/21 #45 w/11. Lluvia Bright Ma documented in this encounterBlanchard Valley Health System09-23-2022 Miscellaneous Notes* Telephone Encounter - Malika Sethi [...] you. Aide Chamberlain RN documented in this encounterBlanchard Valley Health System09-23-2022 Miscellaneous Notes* Telephone Encounter - Aide Chamberlain [...] 1:18 PM EDT Office received fax from [facility] for Prior Auth of pt's rescue inhaler. Pt currently being prescribed ProAir HFA 90 mcg and PA is required. Inhalers that do not require Authorization are: Albuterol Sulfate HFA Levalbuterol Tartrate Ventolin HFA. Lluvia Bright Ma documented in this encounterBlanchard Valley Health System09-19-2022 Miscellaneous Notes* Telephone Encounter - Zulma Gloria [...] advise. Rhona Cardoza LPN documented in this encounterBlanchard Valley Health System09-13-2022 Miscellaneous Notes* Telephone Encounter - Zulma Gloria Ma - 06/29/2022 9:16 AM EDT Pt notified of results via [employer]ce [employer]hart. Zulma Gloria Ma * Telephone Encounter - Cyndi Ayala MA - 06/28/2022 2:33 PM EDT Unable to reach patient. Left VM to return call to office. Please read below and advise. Cyndi Ayala MA * Telephone Encounter - Dean Goldberg APRN.SALES SUPPORT COORDINATOR - 06/28/2022 2:24 PM EDT Patient has [...] does need increased. [facility] [place]. documented in this encounterBlanchard Valley Health System08-17-2022 Miscellaneous Notes* Telephone Encounter - Avelina Sweet Ma - 06/02/2022 2:34 PM EDT Spoke to spouse who advised patient has no issue with any brand and aware has to take whatever [facility]. [facility] picking supervisor so not sure what issue is. Spoke towife again who will get rx an again aware pharmacy dispenses brand insurance covers Avelina Sweet Ma * Telephone Encounter - Victoria Lancaster - 06/02/2022 2:17 PM EDT Patient is [...] a hard time. Patient phone number is [phone] He uses the [facility] in [place] Electronically signed by Victoria Albright [facility] at 06/02/2022 2:24 PM EDT documented in this encounterBlanchard Valley Health System03-24-2022 Nurse Note* Lluvia Bright Ma - 01/07/2022 2:49 PM EDT Pt requested parking placard be mailed to home address. This has been completed. Lluvia Bright Ma documented in this encounterBlanchard Valley Health System03-24-2022 History of Present illness Narrative* Americo Borrego [...] HISTORY Diagnosis Date CAD (coronary artery disease), [place] coronary artery 2014 No PCI indicated. no clay worker needed Closed fracture of femur (HCC) 11/2010 Depressive disorder, not elsewhere classified Diabetes mellitus type 2 in obese (HCC) DVT of lower extremity (deep venous thrombosis) ([facility]) 11/2010 left Esophageal reflux Essential hypertension CATY [...] Past Histories independently gathered by the clinical it support analyst and the remaining scribed note accurately describes my personal service to the patient. Americo Borrego MD The documentation for this note was completed by Lluvia Bright Ma acting as scribe for Americo Borrego MD. January 07, 2022 2:36 PM. Lluvia Bright Ma documented in this encounterBlanchard Valley Health System03-24-2022 Miscellaneous Notes* Telephone Encounter - Lluvia Bright [...] Bright Ma * Telephone Encounter - Ashley Sheets - 01/04/2022 11:04 AM EDT Patient has COPD and he has a cold right now and it has gone into his chest and wanted to see if you can call in predisone. If this is possible [facility] to [facility] [place]. Ashley Umana Pss documented in this encounterBlanchard Valley Health System01-27-2020 History of Past illness Narrative* Problem Noted [...] of this encounter (statuses as of 01/07/2022) [facility] of Past illness Narrative* Problem Noted [...] of this encounter (statuses as of 01/07/2022) [facility] of Past illness Narrative* Problem Noted [...] of this encounter (statuses as of 06/02/2022) [facility] of Past illness Narrative* Problem Noted [...] of this encounter (statuses as of 06/29/2022) [facility] of Past illness Narrative* Problem Noted [...] of this encounter (statuses as of 07/05/2022) [facility] of Past illness Narrative* Problem Noted [...] of this encounter (statuses as of 07/09/2022) [facility] of Past illness Narrative* Problem Noted [...] of this encounter (statuses as of 10/17/2022) [facility] of Past illness Narrative* Problem Noted [...] of this encounter (statuses as of 11/26/2022) [facility] of Past illness Narrative* Problem Noted [...] of this encounter (statuses as of 12/31/2022) [facility] of Past illness Narrative* Problem Noted [...] of this encounter (statuses as of 04/25/2023) [facility] of Past illness Narrative* Problem Noted [...] of this encounter (statuses as of 06/17/2023) [facility] of Past illness Narrative* Problem Noted [...] of this encounter (statuses as of 06/24/2023) [facility] of Past illness Narrative* Problem Noted [...] of this encounter (statuses as of 06/30/2023) [facility] of Past illness Narrative* Problem Noted [...] of this encounter (statuses as of 08/25/2023) [facility] of Past illness Narrative* Problem Noted [...] of this encounter (statuses as of 08/25/2023) [facility] of Past illness Narrative* Problem Noted [...] of this encounter (statuses as of 09/22/2023) [facility] illness Narrative* Problem Noted [...] of this encounter (statuses as of 11/22/2023) [facility] Narrative* Problem Noted [...] of this encounter (statuses as of 11/26/2023) [facility] Narrative* Problem Noted [...] of this encounter (statuses as of 12/17/2023) [facility] Narrative* Problem Noted [...] of this encounter (statuses as of 01/26/2024) [facility] Narrative* Problem Noted [...] of this encounter (statuses as of 01/28/2024) [facility] note* Diagnosis Chronic obstructive pulmonary disease with acute exacerbation (HCC)- Primary Obstructive chronic bronchitis with exacerbation documented in this encounter [facility] note* Diagnosis Type 2 diabetes mellitus without complication, 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 prison insulin use (HCC) documented in this encounter [facility] noteNo assessment information availableWOhioHealth [facility] Work Phone: Evaluation note* Diagnosis Hyperlipidemia, unspecified hyperlipidemia type- Primary Controlled type 2 diabetes mellitus without complication, with long-term current use of insulin (HCC) Essential hypertension Unspecified essential hypertension documented in this encounter [facility] note* Diagnosis Type 2 diabetes mellitus without complication, 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 director hydrogen storage engineering insulin use (HCC) documented in this encounter [facility] note* Diagnosis Type 2 diabetes mellitus without complication, 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 director hydrogen storage engineering insulin use (HCC)- Primary Essential hypertension Unspecified essential hypertension Hyperlipidemia, unspecified hyperlipidemia type Depression, unspecified depression type FAISAL (generalized anxiety disorder) Generalized anxiety disorder Chronic obstructive pulmonary disease, unspecified COPD type (HCC) Gastroesophageal reflux disease, 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 esophagitis present Obstructive sleep apnea treated with BiPAP Encounter for screening for lung cancer documented in this encounter [facility] note* Diagnosis SOB (shortness of breath)- Primary Shortness of breath COPD with exacerbation (HCC) Obstructive chronic bronchitis with exacerbation documented in this encounter [facility] note* Diagnosis Asthma with COPD with exacerbation (HCC) (HCC)- Primary Chronic obstructive asthma with exacerbation documented in this encounter [facility] note* Diagnosis Chronic obstructive pulmonary disease, unspecified COPD type (HCC) Type 2 diabetes mellitus without complication, 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 prison insulin use (HCC) documented in this encounter [facility] note* Diagnosis Type 2 diabetes mellitus without complication, 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 prison insulin use (HCC)- Primary Essential hypertension Unspecified [...] (HCC) Thrombocytopenia, unspecified [facility] [place] [facility]* Diagnosis Essential hypertension Unspecified essential hypertension documented in this encounter [facility] note* Diagnosis Left lower quadrant abdominal pain- Primary documented in this encounter [facility] note* Diagnosis Hospital discharge follow-up- Primary Other follow-up examination Type 2 diabetes mellitus without complication, 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 director hydrogen storage engineering insulin use (HCC) Essential hypertension Unspecified essential [...] and behavioral disorders documented in this encounter [facility] note* Diagnosis COPD with exacerbation (HCC)- Primary [...] not elsewhere classified Coronary artery disease involving [place] coronary artery of [place] heart Hyponatremia Hyposmolality and/or hyponatremia Hypophosphatemia Disorders [...] 2 diabetes mellitus without complication, 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 prison insulin use (HCC) documented in this encounter [facility] note* Diagnosis COPD with exacerbation (HCC)- Primary [...] not elsewhere classified Coronary artery disease involving [place] coronary artery of [place] heart Hyponatremia Hyposmolality and/or hyponatremia Hypophosphatemia Disorders [...] Shortness of breath documented in this encounter [facility] [place] [facility]* Diagnosis COPD with exacerbation ([facility])- Primary Obstructive chronic bronchitis with exacerbation Type [...] not elsewhere classified Coronary artery disease involving [place] coronary artery of [place] heart Hyponatremia Hyposmolality and/or hyponatremia Hypophosphatemia Disorders [...] hyperglycemia, with long-term current use of insulin ([facility])- Primary Depression, unspecified depression type Gastroesophageal reflux disease, 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 esophagitis present Hyperlipidemia, unspecified hyperlipidemia type Chronic obstructive pulmonary disease, unspecified COPD type (HCC) Mild asthma without complication, 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 persistent Coronary artery disease involving [place] coronary artery of [place] heart without angina pectoris Obstructive sleep apnea treated with BiPAP Essential hypertension Unspecified essential hypertension documented in this encounter [facility] note* Diagnosis COPD with exacerbation (HCC)- Primary [...] not elsewhere classified Coronary artery disease involving [place] coronary artery of [place] heart Hyponatremia Hyposmolality and/or hyponatremia Hypophosphatemia Disorders [...] 2 diabetes mellitus without complication, 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 prison insulin use ([facility]) documented in this encounter [facility] note* Diagnosis COPD with exacerbation (HCC)- Primary [...] not elsewhere classified Coronary artery disease involving [place] coronary artery of [place] heart Hyponatremia Hyposmolality and/or hyponatremia Hypophosphatemia Disorders [...] 2 diabetes mellitus without complication, 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 director hydrogen storage engineering insulin use (HCC)- Primary Essential hypertension Unspecified essential hypertension Hyperlipidemia, unspecified hyperlipidemia type Depression, unspecified depression type FAISAL (generalized anxiety disorder) Generalized anxiety disorder Gastroesophageal reflux disease, 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 esophagitis present Mild asthma without complication, 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 persistent Obstructive sleep apnea treated with BiPAP Chronic obstructive pulmonary disease, unspecified COPD type (HCC) History of ileostomy Ileostomy status documented in this encounter [facility] note* Diagnosis COPD with exacerbation (HCC)- Primary [...] not elsewhere classified Coronary artery disease involving [place] coronary artery of [place] heart Hyponatremia Hyposmolality and/or hyponatremia Hypophosphatemia Disorders [...] Unspecified essential hypertension [facility] Additional Instructions Please continue your albuterol inhaler to help with bronchospasm/shortness of breath. Use the prescribed cough medication to help reduce your cough and follow-up with your family doctor for repeat evaluation. Your workup today shows no sign of heart damage or pneumonia. Please return to the ER should you have any worsening of symptoms or any further concernsWOhioHealth [facility] Work Phone: Hospital Discharge instructionsAdditional Instructions Use your nebulizer every 4-6 hours as needed for shortness of breath and chest tightness. He do not have a pneumonia today. If you are worsening despite starting the treatments today please return to the emergency room at that time we might need to do blood work or consider admission. Please resume your CPAP at night as we discussed. If you develop a fever please return to the emergency room. I Suspect you have a viral illness that is causing a COPD exacerbationWOhioHealth [facility] Work Phone: Reason for referral (narrative)* Outpatient Procedure (Routine) - Authorized Specialty Diagnoses / Procedures Referred By Contac t Referred To Contact [facility] Diagnoses Chronic obstructive pulmonary disease, unspecified COPD type (HCC) Procedures SPIROMETRY - BASELINE AND POST DILATOR BRNCDILAT RSPSE SPMTRY PRE&POST-BRNCDILAT ADMN Americo Borrego MD [address] [place] [address] Respiratory [place] [address] [place] [address] Referral ID Status Reason Start Date Expiration Date Visits Requested Visits Authorized [id number] Authorized Auto-Generat ed Referral 02/20/2024 03/21/2025 1 1 [facility] for referral (narrative)No reason for referral information availableWOhioHealth [facility] Work Phone: Summary Purpose Family History No Family History Records Found Relationship Condition Age at Onset Recorded Date/T kevin Unknown Family History?COPD, - Unknown u 2016 1:32pm Family History?Cancer Unknown Julobe r 2014 3:47pm Family History?Cancer Unknown ua 2016 1:32pm Family History?Heart Disease Unknown November 18, 2016 1:32pm Relationship Condition Age at Onset Recorded Date/T kevin Unknown Family History?COPD, - Unknown u 2016 2:32pm Family History?Cancer Unknown Octobe r 2014 4:47pm Family History?Cancer Unknown ua 2016 2:32pm Family History?Heart Disease Unknown November 18, 2016 2:32pm Advance Directives No Advanced Directives Records FoundDocuments on File Type Date Recorded 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 Advance Directive(s) 09/15/2020 5:06 AM Advance Directive(s) 09/03/2020 2:18 PM Advance Directive(s) 04/29/2020 11:50 AM Advance Directive(s) 04/29/2020 3:25 PM Advance Directive(s) 04/29/2020 3:26 PM Advance Directive(s) 11/08/2019 6:53 AM Documents on File Type Date Recorded 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 Advance Directive(s) 04/29/2020 3:26 PM Advance Directive Response Recorded Date/ Time Advance Directives No November 18, 2016 1:01pm Living Will No December 06, 023 11:32am Power of Brim And Crown Presser No December 06, 2022 11:32am Advance Directive Response Recorded Date/ Time Advance Directives No November 18, 2016 2:01pm Living Will No January 29, 2024 12:08am Power of Brim And Crown Presser No January 28 12:08am Documents on File Type Date Recorded 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 No July 06, 2025 3:02pm Advance Directives No November 18, 2016 2:01pm Procedure Findings Note HNO ID: [id number] Author: Sunny Bingham Service: ? Author Type: Nurse Vmware Consultant Type: Anesthesia Procedure Notes Filed: 09/03/2020 4:34 PM Note Text: ANESTHESIOLOGY PROCEDURE NOTE Airway General Information Procedure Start Time/Medication Administration: 09/03/2020 4:29 PM Patient location during procedure: OR Timeout Performed Pre-procedure: timeout performed Consent Obtained: Yes Patient identity confirmed: arm band Staffing GOLF CADDIE: Lloyd Bingham Performed by: ALVARO Indications and [...] no Airway not difficult SIGNATURE: Lloyd Bingham APRN.GOLF CADDIE PATIENT NAME: (more content not included)... Chief Complaint and Reason for Visit Chief Complaint n/v/d Chief Complaint sob Chief Complaint Admit Date sob July 06, 2025 3:02pm Reason for Referral Specialty Diagnoses / Procedures Referred By Gwen t Referred To Contact Ophthalmology Diagnoses Type 2 diabetes mellitus without complication, 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 prison insulin use (HCC) Procedures CONSULT TO OPHTHALMOLOGY OFFICE/OUTPATIENT [facility] HIGH MDM 60 MINUTES Americo Borrego MD [address] [place] [address] Referral ID Status Reason Start Date Expiration Date Visits Requested Visits Authorized [id number] Authorized PCP Requested Referral 05/22/2024 05/22/2025 1 1 Additional Source Comments (unrecognized sect ion and content) No Status Records FoundNo Status Records FoundNo Status Records FoundNo Status Records Found INFORMATION SOURCE (unrecogn ized section and content) DATE CREATED AUTHOR 09/04/2020 [facility] DATE CREATED AUTHOR AUTHOR'S ORGANIZ ATION 09/09/2020 [facility] DATE CREATED AUTHOR AUTHOR'S ORGANIZ ATION 04/13/2025 [facility] DATE CREATED AUTHOR AUTHOR'S ORGANIZ ATION 08/28/2025 [facility] Source Comments (unrecognize d section and content) In the event this informatio n is protected by the Federal Confidentiality of Alcohol and Drug Abuse Patient Records regulations: The Federal rules restrict any use of the information to criminally investigate or prosecute any alcohol or drug abuse patient.[facility] SystemIn the event this information is protected by the Federal Confidentiality of Alcohol and Drug Abuse Patient Records regulations: The Federal rules restrict any use of the information to criminally investigate or prosecute any alcohol or drug abuse patient.[facility] SystemIn the event this information is protected by the Federal Confidentiality of Alcohol and Drug Abuse Patient Records regulations: The Federal rules restrict any use of the information to criminally investigate or prosecute any alcohol or drug abuse patient.[facility] SystemIn the event this information is protected by the Federal Confidentiality of Alcohol and Drug Abuse Patient Records regulations: The Federal rules restrict any use of the information to criminally investigate or prosecute any alcohol or drug abuse patient.[facility] SystemIn the event this information is protected by the Federal Confidentiality of Alcohol and Drug Abuse Patient Records regulations: The Federal rules restrict any use of the information to criminally investigate or prosecute any alcohol or drug abuse patient.[facility] SystemIn the event this information is protected by the Federal Confidentiality of Alcohol and Drug Abuse Patient Records regulations: The Federal rules restrict any use of the information to criminally investigate or prosecute any alcohol or drug abuse patient.[facility] SystemIn the event this information is protected by the Federal Confidentiality of Alcohol and Drug Abuse Patient Records regulations: The Federal rules restrict any use of the information to criminally investigate or prosecute any alcohol or drug abuse patient.[facility] SystemIn the event this information is protected by the Federal Confidentiality of Alcohol and Drug Abuse Patient Records regulations: The Federal rules restrict any use of the information to criminally investigate or prosecute any alcohol or drug abuse patient.[facility] SystemIn the event this information is protected by the Federal Confidentiality of Alcohol and Drug Abuse Patient Records regulations: The Federal rules restrict any use of the information to criminally investigate or prosecute any alcohol or drug abuse patient.[facility] SystemIn the event this information is protected by the Federal Confidentiality of Alcohol and Drug Abuse Patient Records regulations: The Federal rules restrict any use of the information to criminally investigate or prosecute any alcohol or drug abuse patient.[facility] SystemIn the event this information is protected by the Federal Confidentiality of Alcohol and Drug Abuse Patient Records regulations: The Federal rules restrict any use of the information to criminally investigate or prosecute any alcohol or drug abuse patient.[facility] SystemIn the event this information is protected by the Federal Confidentiality of Alcohol and Drug Abuse Patient Records regulations: The Federal rules restrict any use of the information to criminally investigate or prosecute any alcohol or drug abuse patient.[facility] SystemIn the event this information is protected by the Federal Confidentiality of Alcohol and Drug Abuse Patient Records regulations: The Federal rules restrict any use of the information to criminally investigate or prosecute any alcohol or drug abuse patient.[facility] SystemIn the event this information is protected by the Federal Confidentiality of Alcohol and Drug Abuse Patient Records regulations: The Federal rules restrict any use of the information to criminally investigate or prosecute any alcohol or drug abuse patient.[facility] SystemIn the event this information is protected by the Federal Confidentiality of Alcohol and Drug Abuse Patient Records regulations: The Federal rules restrict any use of the information to criminally investigate or prosecute any alcohol or drug abuse patient.[facility] SystemIn the event this information is protected by the Federal Confidentiality of Alcohol and Drug Abuse Patient Records regulations: The Federal rules restrict any use of the information to criminally investigate or prosecute any alcohol or drug abuse patient.[facility] SystemIn the event this information is protected by the Federal Confidentiality of Alcohol and Drug Abuse Patient Records regulations: The Federal rules restrict any use of the information to criminally investigate or prosecute any alcohol or drug abuse patient.[facility] SystemIn the event this information is protected by the Federal Confidentiality of Alcohol and Drug Abuse Patient Records regulations: The Federal rules restrict any use of the information to criminally investigate or prosecute any alcohol or drug abuse patient.[facility] SystemIn the event this information is protected by the Federal Confidentiality of Alcohol and Drug Abuse Patient Records regulations: The Federal rules restrict any use of the information to criminally investigate or prosecute any alcohol or drug abuse patient.[facility] SystemIn the event this information is protected by the Federal Confidentiality of Alcohol and Drug Abuse Patient Records regulations: The Federal rules restrict any use of the information to criminally investigate or prosecute any alcohol or drug abuse patient.[facility] SystemIn the event this information is protected by the Federal Confidentiality of Alcohol and Drug Abuse Patient Records regulations: The Federal rules restrict any use of the information to criminally investigate or prosecute any alcohol or drug abuse patient.[facility] SystemIn the event this information is protected by the Federal Confidentiality of Alcohol and Drug Abuse Patient Records regulations: The Federal rules restrict any use of the information to criminally investigate or prosecute any alcohol or drug abuse patient.[facility] SystemIn the event this information is protected by the Federal Confidentiality of Alcohol and Drug Abuse Patient Records regulations: The Federal rules restrict any use of the information to criminally investigate or prosecute any alcohol or drug abuse patient.[facility] SystemIn the event this information is protected by the Federal Confidentiality of Alcohol and Drug Abuse Patient Records regulations: The Federal rules restrict any use of the information to criminally investigate or prosecute any alcohol or drug abuse patient.[facility] SystemIn the event this information is protected by the Federal Confidentiality of Alcohol and Drug Abuse Patient Records regulations: The Federal rules restrict any use of the information to criminally investigate or prosecute any alcohol or drug abuse patient.[facility] SystemIn the event this information is protected by the Federal Confidentiality of Alcohol and Drug Abuse Patient Records regulations: The Federal rules restrict any use of the information to criminally investigate or prosecute any alcohol or drug abuse patient.[facility] SystemIn the event this information is protected by the Federal Confidentiality of Alcohol and Drug Abuse Patient Records regulations: The Federal rules restrict any use of the information to criminally investigate or prosecute any alcohol or drug abuse patient.[facility] SystemIn the event this information is protected by the Federal Confidentiality of Alcohol and Drug Abuse Patient Records regulations: The Federal rules restrict any use of the information to criminally investigate or prosecute any alcohol or drug abuse patient.[facility] SystemIn the event this information is protected by the Federal Confidentiality of Alcohol and Drug Abuse Patient Records regulations: The Federal rules restrict any use of the information to criminally investigate or prosecute any alcohol or drug abuse patient.[facility] SystemIn the event this information is protected by the Federal Confidentiality of Alcohol and Drug Abuse Patient Records regulations: The Federal rules restrict any use of the information to criminally investigate or prosecute any alcohol or drug abuse patient.[facility] SystemIn the event this information is protected by the Federal Confidentiality of Alcohol and Drug Abuse Patient Records regulations: The Federal rules restrict any use of the information to criminally investigate or prosecute any alcohol or drug abuse patient.[facility] SystemIn the event this information is protected by the Federal Confidentiality of Alcohol and Drug Abuse Patient Records regulations: The Federal rules restrict any use of the information to criminally investigate or prosecute any alcohol or drug abuse patient.[facility] SystemIn the event this information is protected by the Federal Confidentiality of Alcohol and Drug Abuse Patient Records regulations: The Federal rules restrict any use of the information to criminally investigate or prosecute any alcohol or drug abuse patient.[facility] SystemIn the event this information is protected by the Federal Confidentiality of Alcohol and Drug Abuse Patient Records regulations: The Federal rules restrict any use of the information to criminally investigate or prosecute any alcohol or drug abuse patient.[facility] SystemIn the event this information is protected by the Federal Confidentiality of Alcohol and Drug Abuse Patient Records regulations: The Federal rules restrict any use of the information to criminally investigate or prosecute any alcohol or drug abuse patient.[facility] SystemIn the event this information is protected by the Federal Confidentiality of Alcohol and Drug Abuse Patient Records regulations: The Federal rules restrict any use of the information to criminally investigate or prosecute any alcohol or drug abuse patient.[facility] SystemIn the event this information is protected by the Federal Confidentiality of Alcohol and Drug Abuse Patient Records regulations: The Federal rules restrict any use of the information to criminally investigate or prosecute any alcohol or drug abuse patient.[facility] SystemIn the event this information is protected by the Federal Confidentiality of Alcohol and Drug Abuse Patient Records regulations: The Federal rules restrict any use of the information to criminally investigate or prosecute any alcohol or drug abuse patient.[facility] Reason for Visit (unrecogniz ed section and [...] Date Comments Population Health Navigation Outreach 08/22/2024 [facility] WORKBENCDeirdre MARTINEZ PCSA Reason Comments F/U 3 Month Reason Onset Date Comments ACM SILVANO RN 09/12/2024 Medication Ad herence Review at request of payer Reason Onset Date Comments Refill Request 09/28/2024 Reason Comments Medication Problem Med Refills Reason Onset Date Comments Refill Request 06/13/2025 Care Teams (unrecognized sec tion and content) Outbound Sales Professional Relationship Specialty Start Date End Date Americo Borrego MD [address] [place] [address] PCP - General Family Practice 05/07/15 Americo Borrego MD [address] [place] [address] Family Practice 05/07/15 Outbound Sales Professional Relationship Specialty Start Date End Date Americo Borrego MD [address] [place] [address] PCP - General Family Practice 05/07/15 Americo Borrego MD [address] [place] [address] Family Practice 05/07/15 Outbound Sales Professional Relationship Specialty Start Date End Date Americo Borrego MD [address] [place] [address] PCP - General Family Practice 05/07/15 Americo Borrego MD [address] [place] [address] Family Practice 05/07/15 Outbound Sales Professional Relationship Specialty Start Date End Date Americo Borrego MD [address] [place] [address] PCP - General Family Medicine 05/07/15 Americo Borrego MD [address] [place] [address] Family Medicine 05/07/15 Outbound Sales Professional Relationship Specialty Start Date End Date Americo Borrego MD [address] [place] [address] PCP - General Family Medicine 05/07/15 Americo Borrego MD [address] [place] [address] Family Medicine 05/07/15 Outbound Sales Professional Relationship Specialty Start Date End Date Americo Borrego MD [address] [place] [address] PCP - General Family Medicine 05/07/15 Americo Borrego MD [address] [place] [address] Family Medicine 05/07/15 Team Status: Active Member Role Status Dates Dr. Americo Borrego MD Family Provider Active Dr. Americo Borrego MD Primary Care Provider Active Team Status: Inactive Member Role Status Dates Dr. Americo Borrego MD Primary Care Provider Active Dr. Sameer Whiteside MD Emergency Provider Active Outbound Sales Professional Relationship Specialty Start Date End Date Americo Borrego MD [address] [place] [address] PCP - General Family Medicine 05/07/15 Americo Borrego MD [address] [place] [address] Family Medicine 05/07/15 Outbound Sales Professional Relationship Specialty Start Date End Date Americo Borrego MD [address] [place] [address] PCP - General Family Medicine 05/07/15 Americo Borrego MD [address] [place] [address] Family Medicine 05/07/15 Outbound Sales Professional Relationship Specialty Start Date End Date Americo Borrego MD [address] [place] [address] PCP - General Family Medicine 05/07/15 Americo Borrego MD [address] [place] [address] Family Medicine 05/07/15 Outbound Sales Professional Relationship Specialty Start Date End Date Americo Borrego MD [address] [place] [address] PCP - General Family Medicine 05/07/15 Americo Borrego MD [address] [place] [address] Family Medicine 05/07/15 Outbound Sales Professional Relationship Specialty Start Date End Date Americo Borrego MD [address] [place] [address] PCP - General Family Medicine 05/07/15 Americo Borrego MD [address] [place] [address] Family Medicine 05/07/15 Outbound Sales Professional Relationship Specialty Start Date End Date Americo Borrego MD [address] [place] [address] PCP - General Family Medicine 05/07/15 Americo Borrego MD [address] [place] [address] Family Medicine 05/07/15 Outbound Sales Professional Relationship Specialty Start Date End Date Americo Borrego MD [address] [place] [address] PCP - General Family Medicine 05/07/15 Americo Borrego MD [address] [place] [address] Family Medicine 05/07/15 Outbound Sales Professional Relationship Specialty Start Date End Date Americo Borrego MD [address] [place] [address] PCP - General Family Medicine 05/07/15 Americo Borrego MD [address] [place] [address] Family Medicine 05/07/15 Outbound Sales Professional Relationship Specialty Start Date End Date Americo Borrego MD [address] [place] [address] PCP - General Family Medicine 05/07/15 Americo Borrego MD [address] [place] [address] Family Medicine 05/07/15 Outbound Sales Professional Relationship Specialty Start Date End Date Americo Borrego MD [address] [place] [address] PCP - General Family Medicine 05/07/15 Americo Borrego MD [address] [place] [address] Family Medicine 05/07/15 Outbound Sales Professional Relationship Specialty Start Date End Date Americo Borrego MD [address] [place] [address] PCP - General Family Medicine 05/07/15 Americo Borrego MD [address] [place] [address] Family Medicine 05/07/15 Team Status: Inactive Member Role Status Dates Dr. Americo Borrego MD Primary Care Provider Active Dr. Bruce Dong DO Emergency Provider Active Outbound Sales Professional Relationship Specialty Start Date End Date Americo Borrego MD [address] [place] [address] PCP - General Family Medicine 05/07/15 Americo Borrego MD [address] [place] [address] Family Medicine 05/07/15 Outbound Sales Professional Relationship Specialty Start Date End Date Americo Borrego MD [address] [place] [address] PCP - General Family Medicine 05/07/15 Americo Borrego MD [address] [place] [address] Family Medicine 05/07/15 Outbound Sales Professional Relationship Specialty Start Date End Date Americo Borrego MD [address] [place] [address] PCP - General Family Medicine 05/07/15 Americo Borrego MD [address] [place] [address] Family Medicine 05/07/15 Outbound Sales Professional Relationship Specialty Start Date End Date Americo Borrego MD [address] [place] [address] PCP - General Family Medicine 05/07/15 Americo Borrego MD [address] [place] [address] Family Medicine 05/07/15 Outbound Sales Professional Relationship Specialty Start Date End Date Americo Borrego MD [address] [facility] [place] [address] PCP - General Family Medicine 05/07/15 Americo Borrego MD [address] [facility] [place] [address] Family Medicine 05/07/15 Outbound Sales Professional Relationship Specialty Start Date End Date Americo Borrego MD [address] [facility] [place] [address] PCP - General Family Medicine 05/07/15 Americo Borrego MD [address] [facility] [place] [address] Family Medicine 05/07/15 Outbound Sales Professional Relationship Specialty Start Date End Date Americo Borrego MD [address] [facility] [place] [address] PCP - General Family Medicine 05/07/15 Americo Borrego MD [address] [facility] [place] [address] Family Medicine 05/07/15 Outbound Sales Professional Relationship Specialty Start Date End Date Americo Borrego MD [address] [place] [address] PCP - General Family Medicine 05/07/15 Americo Borrego MD [address] [place] [address] Family Medicine 05/07/15 Outbound Sales Professional Relationship Specialty Start Date End Date Americo Borrego MD [address] [place] [address] PCP - General Family Medicine 05/07/15 Americo Borrego MD [address] [place] [address] Family Medicine 05/07/15 Outbound Sales Professional Relationship Specialty Start Date End Date Americo Borrego MD [address] [place] [address] PCP - General Family Medicine 05/07/15 Americo Borrego MD [address] [place] [address] Family Medicine 05/07/15 Outbound Sales Professional Relationship Specialty Start Date End Date Americo Borrego MD [address] [place] [address] PCP - General Family Medicine 05/07/15 Americo Borrego MD [address] [place] [address] Family Medicine 05/07/15 Malika Sethi APRN.CNP [address] [place] [address] Payroll And Benefits Coordinator Family Medicine 09/23/24 Outbound Sales Professional Relationship Specialty Start Date End Date Americo Borrego MD [address] [facility] [place] [address] PCP - General Family Medicine 05/07/15 Americo Borrego MD [address] [facility] [place] [address] Family Medicine 05/07/15 Malika Sethi APRN.SALES SUPPORT COORDINATOR [address] [place] [address] Payroll And Benefits Coordinator Family Medicine 09/23/24 Dean Goldberg APRN.SALES SUPPORT COORDINATOR [address] [place] [address] Payroll And Benefits Coordinator Family Medicine 10/02/24 Outbound Sales Professional Relationship Specialty Start Date End Date Americo Borrego MD [address] [place] [address] PCP - General Family Medicine 05/07/15 Americo Borrego MD [address] [facility] [place] [address] Family Medicine 05/07/15 Malika Sethi PLATFORM BEATER.SALES SUPPORT COORDINATOR [address] [place] [address] Payroll And Benefits Coordinator Family Medicine 09/23/24 Dean Goldberg APRN.SALES SUPPORT COORDINATOR [address] [facility] [place] [address] Payroll And Benefits Coordinator Family Medicine 10/02/24 Outbound Sales Professional Relationship Specialty Start Date End Date Americo Borrego MD [address] [place] [address] PCP - General Family Medicine 05/07/15 Americo Borrego MD [address] [place] [address] Family Medicine 05/07/15 Dean Goldberg APRN.SALES SUPPORT COORDINATOR [address] [place] [address] Payroll And Benefits Coordinator Family [facility] 10/02/24 Outbound Sales Professional Relationship Specialty Start Date End Date Americo Borrego MD [address] [place] [address] PCP - General Family Medicine 05/07/15 Americo Borrego MD [address] [place] [address] Family Medicine 05/07/15 Dean Goldberg APRN.SALES SUPPORT COORDINATOR [address] [place] [address] Payroll And Benefits Coordinator [facility] 10/02/24 Team Status: Active Member Role/Relationship Status Dates Dr. Americo Borrego MD Primary care physician Active Team Status: Inactive Member Role/Relationship Status Dates Dr. Americo Borrego MD Primary care physician Active Start: July 06, 2025 End: July 06, 2025 Dr. Melissa Holly DO Attending physician Active Start: July 06, 2025 End: July 06, 2025 Dr. Melissa Holly DO Emergency Departm ent Physician Active Start: July 06, 2025 End: July 06, 2025 Goals (unrecognized section and content) Goals may be documented in a n alternate sectionGoals may be documented in an alternate sectionGoals may be documented in an [...] BE BASED ON THE PRIMARY CLINICAL RECORDS. [facility] [employer] [facility]. provides no warranty or guarantee of the accuracy or completeness of information in this document.
--- NOTE | 2025-09-19 06:44 | EDS_ITS ---
HPI History of Present Illness Chief Complaint: Shortness of Breath Narrative Narrative: Patient was seen and examined after presenting to ED for shortness of breath also reporting that he had a fever and cough for the past couple days states that his daughter is sick with a virus he reports he has a history of COPD states that he also had a history of a PE but that was back in 2019 after an accident that he had he is no longer on anticoagulation. [facility] Medical History Diverticulitis Femur fracture Rib fracture H. pylori infection Cholecystitis Fatty liver Depression BPH (benign prostatic hyperplasia) DVT (deep venous thrombosis) GERD (gastroesophageal reflux disease) Diverticula of colon HTN (hypertension) COPD (chronic obstructive pulmonary disease) Diabetes mellitus Home Medications ?Medication ?Instructions ?Recorded ?Last Taken ?Type albuterol sulfate 2.5 mg/3 mL 2.5 mg inhalation Q6H VA N PRN Sob 01/03/16 11/18/16 04:00 History (0.083 %) solution for nebulization &/Or Wheezing atorvastatin 40 mg tablet 40 mg PO QHS 01/03/16 History citalopram 20 mg tablet 30 mg PO DAILY 01/03/1607/18 History glimepiride 2 mg tablet 2 mg PO DAILY 01/03/1608/06 History lisinopril 10 mg tablet 10 mg PO DAILY 01/03/1607/18 History fluticasone furoate 100 1 ea IH DAILY ##1 05/25/16 1 Rx mcg-vilanterol 25 mcg/dose inhalation powder (Breo Ellipta) albuterol sulfate 90 mcg/actuation 2 puff inhalation Q 2H PRN PRN 11/20/16 08/06/19 Rx aerosol inhaler (Ventolin HFA) COUGH/WHEEZE ##0 insulin detemir U-100 100 unit/mL 50 units subcut QHS 08/06/19 08/05/19 History (3 mL) subcutaneous pen omeprazole 40 mg capsule,delayed 40 mg PO BID 08/06/19 08/06/19 History release ibuprofen 800 mg tablet 800 mg PO Q8H PRN Pain 1-10 Or 09/11/20 Unknown History Fever loperamide 2 mg capsule (Imodium 2 mg PO Q4H PRN loose stool #10 12/06/22 Unknown Rx A-D) caps empagliflozin 25 mg tablet 25 mg PO DAILY 05/14/24 Unk nown History (Jardiance) insulin lispro 100 unit/mL 30 unit subcut QPM 05/14/24 Unknown History subcutaneous pen ondansetron 4 mg disintegrating 4 mg PO Q8H PRN PRN Na usea #14 tabs 05/14/24 Unknown Rx tablet azithromycin 250 mg tablet See Rx Instructions PO .COM PLEX #6 07/06/25 Unknown Rx tabs prednisone 20 mg tablet 40 mg (2 x 20 mg) PO DAILY # 8 tabs 07/06/25 Unknown Rx doxycycline monohydrate 100 mg 100 mg PO BID #10 CAPSU LES 08/18/25 Unknown Rx capsule prednisone 20 mg tablet 60 mg (3 x 20 mg) PO DAILY # 12 08/18/25 Unknown Rx TABLETS doxycycline monohydrate 100 mg 100 mg PO BID #14 CAPSU LES 09/19/25 Unknown Rx capsule prednisone 50 mg tablet 50 mg PO DAILY #5 tabs 09/19 Unknown Rx Allergy/AdvReac Type Severity Reaction Status Date / Time No Known Allergies Allergy Verified 09/19/25 05:58 Social History household members: none Smoking Status: Former smoker substance use type: does not use ROS ROS ED ROS Narrative Pertinent Positives: Cough fever shortness of breath Pertinent Negatives: Chest pain pressure vomiting diarrhea The remainder of review of systems negative unless otherwise stated in the HPI above. Systems reviewed including constitutional, psychiatric, cardiovascular, respiratory, integument, HENT, gastrointestinal. EXAM Physical Exam Narrative Exam Narrative: Patient is afebrile his blood pressure is stable he was tachypneic but 95% on room air he has diffuse wheezes inspiratory and with exhalation bilaterally abdomen is soft nontender nondistended no palpable pulsatile mass. He has intact and equal MSPs in his extremities no lower extremity edema or calf tenderness Const Vital Signs: 09/19/25 05:58 09/19/25 06:00 09/19/25 06:02 Temperature 98.8 F 98.8 F Temperature Source Oral Oral Pulse Rate 113 H 113 H Respiratory Rate 32 H 32 H Respiratory Effort Short of Breath Respiratory Pattern Tachypnea Blood Pressure 128/79 H 128/79 H Blood Pressure Mean 95 95 Pulse Ox 95 95 Oxygen Delivery Method Room Air Room Air Room Air 09/19/25 06:11 09/19/25 06:12 09/19/25 06:57 Temperature Temperature Source Pulse Rate 110 H 105 H Respiratory Rate 24 H 25 H Respiratory Effort Respiratory Pattern Blood Pressure 136/71 H Blood Pressure Mean 92 Pulse Ox 94 Oxygen Delivery Method Room Air Room Air 09/19/25 07:00 09/19/25 07:38 Temperature Temperature Source Pulse Rate 105 H 104 H Respiratory Rate 25 H 18 Respiratory Effort Respiratory Pattern Normal Blood Pressure 136/71 H Blood Pressure Mean 92 Pulse Ox 94 Oxygen Delivery Method Room Air MDM MDM MDM Narrative Medical decision making narrative: Nursing notes, triage notes, available previous documentation, and vital signs were reviewed. Any discrepancies noted were addressed. Differential Diagnoses: COPD exacerbation likely from a viral cause will evaluate for pneumonia as well on chest x-ray lower suspicion for PE or heart failure Interventions: DuoNeb from EMS DuoNebs from loss methylprednisolone magnesium sulfate Fluids Given: 1 L normal saline Labs Reviewed: No leukocytosis leukopenia or anemia his platelets are 111. No electrolyte abnormality or renal insufficiency they are hyperglycemic no significant transaminitis troponin is 16 with a proBNP of 62 Imaging Reviewed: Personally reviewed and interpreted by me: Chest x-ray no pneumonia edema wide mediastinum or pneumothoraces EKG: Sinus tachycardia rate of [address] segment elevation QTc was prolonged at 486. EKG interpretation is noted and agreed to in the EMR. The interpretation of this patient's EKG contributed directly to the care and management of this patient. Previous Documentation Reviewed: None available or applicable at this time. ED Course: Patient presenting with shortness of breath and wheezing he does have a history of COPD he states his daughter is currently sick with some sort of virus he believes that he likely has that as well he was given breathing treatments magnesium and steroids we will reassess. 0727: Patient states that he is feeling better on reevaluation he still has some subtle wheezing we will go ahead and give him another breathing treatment and then do an ambulatory pulse ox and reassess for final disposition 0758: Patient completed his second DuoNeb treatment I performed an ambulatory pulse ox with him he did not desaturate below 95% he will be discharged home with prescription for steroids as well as the doxycycline for morbidity and mortality benefit with COPD return precautions and follow-up recommendations provided patient stable for discharge home This note was made utilizing voice recognition software. All attempts were made to correct spelling or other errors prior to note completion. However, due to the fast-paced nature of emergency medicine, some errors may still be present. Lab Data Labs: Laboratory Results - last 24 hr 09/19/25 06:20 WBC 6.0 RBC 5.82 Hgb 16.4 Hct 49.5 MCV 85.1 MCH 28.2 MCHC 33.1 RDW Std Deviation 39.4 RDW Coeff of Nai 13.0 Plt Count 111 L MPV 10.8 Immature Gran % (Auto) 1.200 H Neut % (Auto) 73.0 H Lymph % (Auto) 12.9 L [place] % (Auto) 7.9 Eos % (Auto) 4.0 Baso % (Auto) 1.0 Absolute Neuts (auto) 4.3 Absolute Lymphs (auto) 0.77 L Nucleated RBC % 0 Sodium 137 Potassium 4.3 Chloride 99 Carbon Dioxide 24.2 Anion Gap 14 BUN 16 Creatinine 0.77 Estim Creat Clear Calc 136.87 Est GFR (MDRD) Non-Af 105 BUN/Creatinine Ratio 20.2 H Glucose 230 H Calcium 9.3 Total Bilirubin 0.82 AST 41 H ALT 37 Alkaline Phosphatase 84 Troponin T High Sens 16 NT pro BNP II 62 Total Protein 7.3 Albumin 4.2 Globulin 3.1 Albumin/Globulin Ratio 1.4 Radiography Diagnostic Testing: Clinical Impression(s) from Imaging Studies Chest X-Ray 09/19/25 06:25 IMPRESSION: Mild bilateral basilar atelectatic pulmonary changes. [facility] Discharge Plan Triage Chief Complaint: Shortness of Breath ED Provider: Susan Stokes Dx/Rx/DC Orders Clinical Impression: Dyspnea, COPD exacerbation, Acute viral syndrome Instructions: ED COPD Flare Prescriptions: New prednisone 50 mg tablet 50 mg PO DAILY Qty: 5 0RF doxycycline monohydrate 100 mg capsule 100 mg PO BID Qty: 14 0RF No Action atorvastatin 40 MG tablet 40 mg PO QHS Patient Comments: cholesterol albuterol sulfate 2.5 MG/3 ML solution for nebulization 2.5 mg inhalation Q6H PRN PRN (Reason: Sob &/Or Wheezing) Patient Comments: breathing glimepiride 2 MG tablet 2 mg PO DAILY Patient Comments: diabetes citalopram 20 MG tablet 30 mg PO DAILY Patient Comments: depression lisinopril 10 MG tablet 10 mg PO DAILY Patient Comments: blood pressure fluticasone furoate-vilanterol [Breo Ellipta] 1 EACH blister with device 1 ea IH DAILY Qty: 1 1RF Patient Comments: breathing albuterol sulfate [Ventolin HFA] 1 INHALER inhaler 2 puff inhalation Q2H PRN PRN (Reason: COUGH/WHEEZE) Qty: 0 0RF Patient Comments: breathing omeprazole 40 MG capsule,delayed release(DR/EC) 40 mg PO BID insulin detemir U-100 100 UNITS/ML insulin pen 50 units subcut QHS ibuprofen 800 MG tablet 800 mg PO Q8H PRN (Reason: Pain 1-10 Or Fever) loperamide [Imodium A-D] 2 mg capsule 2 mg PO Q4H PRN (Reason: loose stool) Qty: 10 0RF Rx Instructions: administer after each loose stool until symptoms controlled; do not exceed 8 mg per 24 hrs prednisone 20 mg tablet 40 mg PO DAILY Qty: 8 0RF azithromycin 250 mg tablet See Rx Instructions .ROUTE .COMPLEX Qty: 6 0RF Rx Instructions: For 250 mg dose pack: take 500 mg today (day 1), then 250 mg for 4 days (days 2-5) Jardiance 25 mg tablet 25 mg PO DAILY insulin lispro 100 unit/mL insulin pen 30 unit subcut QPM ondansetron 4 mg tablet,disintegrating 4 mg PO Q8H PRN PRN (Reason: Nausea) Qty: 14 0RF prednisone 20 mg tablet 60 mg PO DAILY Qty: 12 0RF doxycycline monohydrate 100 mg capsule 100 mg PO BID Qty: 10 0RF Primary Care Provider: Vinicio Wright Referrals: Vinicio Wright MD [Primary Care Provider, Internal Medicine] Activity Restrictions/Additional Instructions: Take the steroids and follow-up with your primary care doctor if you are feeling worse do not hesitate to return Print Language: [place] Disposition Disposition: Home, Self Care
[2025-09-19 06:58] LABS: AST(SGOT) 41 U/L (<=37); Alanine Aminotransfer ALT/SGPT 37 U/L (<=46); Albumin, Serum 4.2 g/dL (3.5-5.0); Alkaline Phosphatase 84 U/L (40-129); Anion Gap 14 (5-15); BUN 16 mg/dL (4-19); BUN/Creat Ratio 20.2 RATIO (10-20); Calcium,Total 9.3 mg/dL (7.6-11.0); Carbon Dioxide 24.2 mmol/L (21.0-32.0); Chloride 99 mmol/L (98-108); Estimated Creatinine Clearance 136.87 ml/min (50-250); Globulin 3.1 g/dL (2.2-4.2); Glucose 230 mg/dL (70-99); Potassium 4.3 mmol/L (3.3-5.1); Pro- Brain NATRIURETIC PEPTIDE 62 pg/mL (<=900); Troponin T High Sensitivity 16 ng/L (<=22)
== END 2025-09-19 08:11 | disposition home or self-care (01) ==
PROVIDERS: Emergency Provider Specialist/Technologist Athletic Trainer; PCP Internal Medicine; Visit Provider Specialist/Technologist Athletic Trainer
DX: J44.1 Chronic obstructive pulmonary disease with (acute) exacerbation (principal); E11.9 Type 2 diabetes mellitus without complications; B34.9 Viral infection, unspecified; Z87.891 Personal history of nicotine dependence; I10 Essential (primary) hypertension; R06.02 Shortness of breath; K21.9 Gastro-esophageal reflux disease without esophagitis; Z79.52 Long term (current) use of systemic steroids
CPT/HCPCS: 96365; 96375; 99285; 71045; 80053; 83880; 84484; 85025; 93005; 94640; A4216

== ENCOUNTER 2025-09-20 03:09 | Observation (INO) | payer MEDICARE, SELFPAY ==
[2025-09-20] VITALS (19 sets, daily range): BP systolic 133–174; BP diastolic 67–103; PULSE 80–108; RESP 17–34; TEMP 36.3–36.9; O2SAT 92–98; BMI 41.9; BMI 41.5
--- NOTE | 2025-09-20 03:13 | EKG12_ITS ---
Test Reason : DYSRHYTHMIA Blood Pressure : */* mmHG Vent. Rate : 98 BPM Atrial Rate : 98 BPM P-R Int : 180 ms QRS Dur : 100 ms QT Int : 406 ms P-R-T Axes : 40 77 47 degrees QTcB Int : 518 ms Normal sinus rhythm Prolonged QT Abnormal ECG Confirmed by WILLIAMS MIRANDA, KALLIE ([id number]), film editor supervisor MILAN PARSONS ([id number]) on 09/23/2025 6:03:31 AM Referred By: Confirmed By: KALLIE KRAMER MD
[2025-09-20] MEDS: Magnesium Sulfate 2 GM in Dextrose 5%-Water (100mL Bag) 100 ML IV (03:25)
[2025-09-20] MEDS: 0.9% Normal Saline (1000mL) 1,000 ML 999 ML IV (03:25)
[2025-09-20 03:28] LABS: Hematocrit 47.3 % (40-54); Hemoglobin 15.9 g/dL (13.0-16.5); Immature Granulocytes Count 0.030 X10^3/uL (0.0-0.0); Mean Corp Hgb Conc 33.6 g/dL (32-36); Mean Corpuscular Volume 84.3 fL (80-94); Mean Platelet Vol. 10.4 fl (6.2-12.0); NRBC Flagged by Analyzer 0 % (0-5); Platelet Count 119 K/mm3 (150-450); RBC Distribution Width CV 13.2 % (11.6-14.6); RBC Distribution Width SD 40.3 fl (35.1-43.9); Red Blood Count 5.61 M/mm3 (4.6-6.2); White Blood Count 6.2 K/mm3 (4.4-11.0)
--- OUTSIDE RECORDS SUMMARY | 2025-09-20 03:34 | XMS RPT_ITS | CCD ---
Author Organization [facility] ion Partnership [facility] Care Team Providers Care Grain Elevator Motor Starter Name Role Phone Americo Borrego MD Unavailable Americo Borrego MD Primary Care Provider Americo Borrego MD Unavailable Americo Borrego MD Primary Care Provider Navdeep SLOTTER OPERATOR HELPER.Malika BORRERO Unavailable Luther SLOTTER OPERATOR HELPER.Dean BORRERO Unavailable AMERICO BORREGO Attending Unavailable AMERICO [...] by mouth every 8 hours as needed. [id number] 200 actuat albuterol 0.09 mg/actuat metered dose [...] Comment on above: Take 1 tablet by [facility] daily at bedtime. azithromycin 250 mg [...] on above: Take 2 tablets by mo [facility] once daily for 1 day, THEN [...] Comment on above: Take 1 tablet by [facility] once daily. omeprazole 20 mg [...] Active Start: 08-06-[address] [facility] twice daily Start: 08-06-2019 take 20 mg [...] on above: Take 2 tablets by mo [facility] once daily for 5 days. Take 1 tablet by [facility] once daily for 4 days. Take [...] Comment on above: Take 1 tablet by [facility] daily with breakfast. doxycycline monohydrate 100 [...] on above: Take 1 capsule by mo [facility] two times a day for 5 [...] Coronary atherosclerosis; Translations: [Atherosclerotic heart disease of morongo coronary artery without angina pectoris] Onset: 4 [...] 09-15-2010 09-15-2010 Episodic Other aftercare (1 source) watermaster (current) use of insulin; Translations: [Type 2 [...] Absolute Lymph 2.94 X10 3/uL Normal 0.83-4.51 [facility] Comment on above: Performed By: #### L 100.0100, L500.4050 #### [facility] Laboratory [address] [place], [address] Absolute Neut 3.6 X10 3/uL Normal 2.0-7.7 [facility] Comment on above: Performed By: #### L 100.0100, L500.4050 #### [facility] [address] [place], [address] Basophils/100 WBC (Bld) 0.8 % Normal 0-1 [facility] Comment on above: Performed By: #### L 100.0100, L500.4050 #### [facility] [address] [place], [address] Eosinophils/100 WBC (Bld) 5.5 % High 0-5 [facility] Comment on above: Performed By: #### L 100.0100, L500.4050 #### [facility] [address] [place], [address] Erythrocyte distribution width (RBC) [Ratio] 12.5 % Normal 11.6-14.6 [facility] Comment on above: Performed By: #### L 100.0100, L500.4050 #### [facility] [address] [place], [address] Hematocrit (Bld) [Volume fraction] 47.3 % Normal 40-54 [facility] Comment on above: Performed By: #### L 100.0100, L500.4050 #### [facility] [address] [place], [address] Hemoglobin (Bld) [Mass/Vol] 16.3 g/dL Normal 13.0-16.5 [facility] Comment on above: Performed By: #### L 100.0100, L500.4050 #### [facility] [address] [place], [address] IG% 0.400 Normal 0.0-0.9 [facility] Comment on above: Result Comment: IG% - Immature Granulocytes (promyelocytes, myelocytes and metamyelocytes) > 1% indicates that a LEFT SHIFT is Present. Performed By: #### L 100.0100, L500.4050 #### [facility] [address] [place], [address] Lymphocytes/100 WBC (Bld) 39.5 % Normal 19-41 [facility] Comment on above: Performed By: #### L 100.0100, L500.4050 #### [facility] [address] [place], [address] MCH (RBC) [Entitic mass] 28.3 pg Normal 27.0-32.0 [facility] Comment on above: Performed By: #### L 100.0100, L500.4050 #### [facility] [address] [place], [address] MCHC (RBC) [Mass/Vol] 34.5 g/dL Normal 32-36 [facility] Comment on above: Performed By: #### L 100.0100, L500.4050 #### [facility] [address] [place], [address] MCV (RBC) [Entitic vol] 82.3 fL Normal 80-94 [facility] Comment on above: Performed By: #### L 100.0100, L500.4050 #### [facility] [address] [place], [address] Monocytes/100 WBC (Bld) 6.0 % Normal 0-10 [facility] Comment on above: Performed By: #### L 100.0100, L500.4050 #### [facility] [address] [place], [address] Neutrophils/100 WBC (Bld) 47.8 % Normal 47-70 [facility] Comment on above: Performed By: #### L 100.0100, L500.4050 #### [facility] [address] [place], [address] Nucleated RBC (Bld) [#/Vol] 0 10*3/uL Normal 0-5 [facility] Comment on above: Performed By: #### L 100.0100, L500.4050 #### [facility] [address] [place], [address] Platelet mean volume (Bld) [Entitic vol] 10.9 fL Normal 6.2-12.0 [facility] Comment on above: Performed By: #### L 100.0100, L500.4050 #### [facility] [address] [place], [address] Platelets (Bld) [#/Vol] 120 10*3/uL Low 150-450 [facility] Comment on above: Performed By: #### L 100.0100, L500.4050 #### [facility] [address] [place], [address] RBC (Bld) [#/Vol] 5.75 10*6/uL Normal 4.6-6.2 [facility] Comment on above: Performed By: #### L 100.0100, L500.4050 #### [facility] [address] [place], [address] RDW SD 37.4 fl Normal 35.1-43.9 [facility] Comment on above: Performed By: #### L 100.0100, L500.4050 #### [facility] [address] [place], [address] WBC (Bld) [#/Vol] 7.5 10*3/uL Normal 4.4-11.0 [facility] Comment on above: Performed By: #### L 100.0100, L500.4050 #### [facility] [address] [place], [address] Chest PA and Lateralon 08-18 Chest PA and Lateral [facility] [address] [place] [address] Chest PA and Lateral MR#: [id number] Acct: [id number] Name: ELIEL SOUZA Rep #: [id number] : 1970 M 55 From: Vikas Mcdonald MD PCP: Dr. Americo Borrego MD Status: DEP ER Study: Chest PA and Lateral Date of Exam: 08/18/25 Exam# [id number] Ordering Dr: Sameer Whiteside MD PROCEDURE: CHEST PA AND LATERAL 08/18/2025 REASON FOR EXAM: PRODUCTIVE COUGH, HISTORY OF COPD TECHNIQUE: Procedure Code: RADCXR Modality: DX Procedure: CHEST PA AND LATERAL COMPARISON: 07/06/2025. FINDINGS: The lungs are clear. The cardiomediastinal silhouette appears unremarkable. No acute osseous abnormality. RAD/Chest PA and Lateral IMPRESSION: As above. Reading Location: [id number] CC: Dr. Americo Borrego MD; Dr. Sameer Whiteside MD Senior Planning Analyst: Signed Normal [facility] Comprehensive Metabolic Prof ilon 08-18-2025 Albumin [Mass/Vol] 4.2 g/dL Normal 3.5-5.0 [facility] Comment on above: Performed By: #### L 100.0100, L500.4050 #### [facility] [address] [place], [address] Albumin/Globulin [Mass ratio] 1.5 {ratio} Normal 0.9-2.4 [facility] Comment on above: Performed By: #### L 100.0100, L500.4050 #### [facility] [address] [place], [address] ALK PHOS 93 U/L Normal 40-129 [facility] Comment on above: Performed By: #### L 100.0100, L500.4050 #### [facility] [address] [place], [address] ALT [Catalytic activity/Vol] 31 U/L Normal <=46 [facility] Comment on above: Performed By: #### L 100.0100, L500.4050 #### [facility] [address] [place], [address] AST [Catalytic activity/Vol] 28 U/L Normal <=37 [facility] Comment on above: Performed By: #### L 100.0100, L500.4050 #### [facility] [address] [place], [address] Bilirubin [Mass/Vol] 0.50 mg/dL Normal 0.00-1.30 [facility] Comment on above: Performed By: #### L 100.0100, L500.4050 #### [facility] [address] [place], [address] BUN/CRE 32.7 RATIO High 10-20 [facility] Comment on above: Performed By: #### L 100.0100, L500.4050 #### [facility] [address] [place], [address] Calcium [Mass/Vol] 9.5 mg/dL Normal 7.6-11.0 [facility] Comment on above: Performed By: #### L 100.0100, L500.4050 #### [facility] [address] [place], [address] Chloride [Moles/Vol] 104 mmol/L Normal 98-108 [facility] Comment on above: Performed By: #### L 100.0100, L500.4050 #### [facility] [address] [place], [address] CO2 [Moles/Vol] 19.8 mmol/L Low 21.0-32.0 [facility] Comment on above: Performed By: #### L 100.0100, L500.4050 #### [facility] [address] [place], [address] Creatinine [Mass/Vol] 0.70 mg/dL Normal 0.70-1.20 [facility] Comment on above: Performed By: #### L 100.0100, L500.4050 #### [facility] [address] [place], [address] ECRCL 154.00 ml/min Normal 50-250 [facility] Comment on above: Performed By: #### L 100.0100, L500.4050 #### [facility] [address] [place], [address] GAP 14 Normal 5-15 [facility] Comment on above: Performed By: #### L 100.0100, L500.4050 #### [facility] [address] [place], [address] GFR/1.73 sq M.predicted among non-blacks MDRD (S/P/Bld) [Vol rate/Area] 108 mL/min/{1.73_m2} Normal >60 [facility] Comment on above: Result Comment: mL/m in/1.73m2 CKD-EPI Creatinine Equation (2020) Performed By: #### L 100.0100, L500.4050 #### [facility] [address] [place], [address] Globulin (S) [Mass/Vol] 2.9 g/dL Normal 2.2-4.2 [facility] Comment on above: Performed By: #### L 100.0100, L500.4050 #### [facility] [address] [place], [address] Glucose [Mass/Vol] 216 mg/dL High 70-99 [facility] Comment on above: Performed By: #### L 100.0100, L500.4050 #### [facility] [address] [place], [address] Potassium [Moles/Vol] 3.9 mmol/L Normal 3.3-5.1 [facility] Comment on above: Performed By: #### L 100.0100, L500.4050 #### [facility] [address] [place], [address] Sodium [Moles/Vol] 138 mmol/L Normal 133-145 [facility] Comment on above: Performed By: #### L 100.0100, L500.4050 #### [facility] [address] [place], [address] T PROT 7.0 g/dL Normal 5.9-8.4 [facility] Comment on above: Performed By: #### L 100.0100, L500.4050 #### [facility] [address] [place], [address] Urea nitrogen [Mass/Vol] 23 mg/dL High 4-19 [facility] Comment on above: Performed By: #### L 100.0100, L500.4050 #### [facility] Laboratory [address] [place], [address] Emergency Department Summary on 08-18-2025 Emergency Department Summary [facility] Medical Records Department [address] [place] [address] Emergency Department Summary 08/18/25 MR#: [id number] Acct: [id number] Name: ELIEL SOUZA Rep #: [id number] : 1970 55 From: Sameer Whiteside MD [...] or change (more content not included)... Normal [facility] 12 Lead EKGon 07-06-2025 12 Lead EKG [facility] [address] [place] [address] 12 Lead EKG 07/06/25 1550 MR#: [id number] Acct: [id number] Name: ELIEL SOUZA Rep #: [id number] : 1970 55 From: Aneudy Mathew MD [...] Normal ECG Confirmed by ANEUDY MATHEW MD ([id number]), technical writer and editor TANESHA ROJO ([id number]) on 07/08/2025 8:28:35 AM Referred By: Confirmed By: ANEUDY MATHEW MD 07/08/25 0828 Date Aneudy Mathew MD CC: Dr. Melissa Holly DO; Dr. Americo Borrego MD Signed Normal [facility] Chest PA and Lateralon 07-06 Chest PA and Lateral [facility] [address] [place], [place] [address] Chest PA and Lateral MR#: [id number] Acct: [id number] Name: ELIEL SOUZA Rep #: [id number] : 1970 M 55 From: Maged Archuleta MD PCP: Dr. Americo Borrego MD Status: REG ER Study: Chest PA and Lateral Date of Exam: 07/06/25 Exam# [id number] Ordering Dr: Melissa Holly DO PROCEDURE: CHEST [...] - Other findings discussed above. Reading Location: [facility] CC: Dr. Melissa Holly DO; Dr. Americo Borrego MD Senior Planning Analyst: Signed [facility] Electrocardiogram reportOrde red By: Aneudy Mathew on 07-06-2025 EKG study [facility] [address] [place] [address] 12 Lead EKG 07/06/25 1550 MR#: [id number] Acct: [id number] Name: ELIEL SOUZA Rep #:[id number] : 1970 55 From: Aneudy Mathew MD [...] Normal ECG Confirmed by WILLIAMS MIRANDA, ANEUDY ([id number]), technical writer and editor TANESHA ROJO ([id number]) on 07/08/2025 8:28:35 AM Referred By: Confirmed By: ANEUDY MATHEW MD 07/08/25 0828 Date _ Aneudy Mathew MD CC: Dr. Melissa Holly DO; Dr. Americo Borrego MD ~ Signed [facility] Other Emergency Department Summary on 07-06-2025 Emergency Department Summary [facility] Medical Records Department [address] [place] [address] Emergency Department Summary 07/06/25 MR#: [id number] Acct: [id number] Name: ELIEL SOUZA Rep #: [id number] : 1970 55 From: Melissa Holly DO [...] complaints or concerns per at this time. [facility] Medical History Diverticulitis Femur fracture [...] Depth Norm (more content not included)... Normal [facility] CNOVon 04-12-2025 [facility] Office Visit (FAMPWS) ELIEL SOUZA ([id number]) 1970 M Date Time Provider Department 04/12/25 [...] and Jardiance 25 mg daily. [facility] HTN: Denies checking BP at home. No [...] tx as needed. Not following with any diagnostic assistant's. Does get Shortness of Breath if he [...] HISTORY Diagnosis Date CAD (coronary artery disease), morongo coronary artery 2014 No PCI indicated. no industrial education teacher needed Closed fracture of femur ([facility]) 11/2010 Depressive disorder, not elsewhere classified Diabetes mellitus type 2 in obese DVT of lower extremity (deep venous thrombosis) ([facility]) 11/2010 left Esophageal reflux Essential hypertension CATY (obstructive sleep apnea) CPAP needs another sleep study machine set too high Pelvic fracture ([facility]) Seasonal allergic rhinitis Unspecified asthma(493.90) Diagnosed in 20s. Previous Surgical History PAST SURGICAL HISTORY Procedure Laterality Date COLONOSCOPY FLX DX W/COLLJ SPEC WHEN PFRMD 11/04/10 Normal colon COLONOSCOPY FLX DX W/COLLJ SPEC WHEN PFRMD 01/21/16 few diverticula EGD TRANSORAL BIOPSY SINGLE/MULTIPLE 11/04/10 duodenitis EGD TRANSORAL BIOPSY SINGLE/MULTIPLE 01/21/16 minimal gastritis EXC [facility]OR [facility],PERCUTANEOUS 2013 Cardiac cath, L [...] day. insul (more content not included)... Normal [facility] Comprehensive metabolic 2000 panelon 04-06-2025 Albumin [Mass/Vol] 4.4 g/dL Normal 3.9-4.9 [facility] Comment on above: Order Comment: Speci men Type: BLOOD SPECIMENOrdering Facility: [facility] Address: [address] [id number] Performed By: #### 2 4331-1, ####[facility] LABCLIA [id number] [place] [address] [place] ALP [Catalytic activity/Vol] 106 U/L Normal 38-113 [facility] Comment on above: Order Comment: Speci men Type: BLOOD SPECIMENOrdering Facility: [facility] Address: [address] [id number] Performed By: #### 2 4331-1, ####[facility] LABCLIA [id number] [address] [address] [place] ALT [Catalytic activity/Vol] 44 U/L Normal 10-54 [facility] Comment on above: Order Comment: Speci men Type: BLOOD SPECIMENOrdering Facility: [facility] Address: [address] [place] [address] Performed By: #### 2 4331-1, 59948-8 ####[facility] LABCLIA [id number] [address] [place] [address] [place] Anion gap [Moles/Vol] 15 mmol/L Normal 8-15 [facility] Comment on above: Order Comment: Speci men Type: BLOOD SPECIMENOrdering Facility: [facility] Address: [address] [place], [place] [address] Performed By: #### 2 4331-1, 23088-5 ####[facility] LABCLIA [id number] [address] [address] [place] AST [Catalytic activity/Vol] 38 U/L Normal 14-40 [facility] Comment on above: Order Comment: Speci men Type: BLOOD SPECIMENOrdering Facility: [facility] Address: [address] [place], [place] [address] Performed By: #### 2 4331-1, ####[facility] LABCLIA [id number] [address] [address] [place] Bilirubin [Mass/Vol] 0.7 mg/dL Normal 0.2-1.3 [facility] Comment on above: Order Comment: Speci men Type: BLOOD SPECIMENOrdering Facility: [facility] Address: [address] [place] [address] Performed By: #### 2 4331-1, 17908-4 ####[facility] LABCLIA [id number] [address] [address] [place] Calcium [Mass/Vol] 10.1 mg/dL Normal 8.5-10.2 [facility] Comment on above: Order Comment: Speci men Type: BLOOD SPECIMENOrdering Facility: [facility] Address: [address] [place] [address] Performed By: #### 2 4331-1, 08498-4 ####[facility] LABCLIA [id number] [address] [address] [place] Chloride [Moles/Vol] 99 mmol/L Normal 98-107 [facility] Comment on above: Order Comment: Speci men Type: BLOOD SPECIMENOrdering Facility: [facility] Address: [address] [place] [address] Performed By: #### 2 4331-1, 75935-1 ####[facility] LABIA [id number] [place] [id number] [place] CO2 [Moles/Vol] 20 mmol/L Low 22-30 [facility] Comment on above: Order Comment: Speci men Type: BLOOD SPECIMENOrdering Facility: [facility] Address: [address] [place] [address] Performed By: #### 2 4331-1, 01522-2 ####[facility] LABCLIA [id number] [address] [address] [place] Creatinine [Mass/Vol] 0.60 mg/dL Low 0.73-1.22 [facility] Comment on above: Order Comment: Speci men Type: BLOOD SPECIMENOrdering Facility: [facility] Address: [address] [place] [address] Performed By: #### 2 4331-1, 08879-9 ####[facility] LABIA [id number] [address] [address] [place] Creatinine and Glomerular filtration rate.predicted panel (S/P/Bld) 113 mL/min/1.73m??? Normal >=60 [facility] Comment on above: Order Comment: Speci men Type: BLOOD SPECIMENOrdering Facility: [facility] Address: [address] [place] [address] Result Comment: Tia mated Glomerular Filtration Rate [...] actual GFR. Performed By: #### 2 4331-, ####[facility] LABCLIA [id number] [address] [address] [place] Glucose [Mass/Vol] 245 mg/dL High 74-99 [facility] Comment on above: Order Comment: Osmin lopez Type: BLOOD SPECIMENOrdering Facility: [facility] Address: [address] [place] [address] Result Comment: The [place] Diabetes [employer] (ADA) provides guidance for cutoff [...] Standards of Medical Care in Diabetes 2016, [place] [employer]. Diabetes Care. 2016.39(Suppl 1). Performed By: #### 2 433-, ####[facility] LABCLIA [id number] [address] [address] [place] Potassium [Moles/Vol] 5.1 mmol/L Normal 3.7-5.1 [facility] Comment on above: Order Comment: Osmin lopez Type: BLOOD SPECIMENOrdering Facility: [facility] Address: [address] [place] [address] Performed By: #### 2 433-, ####[facility] LABCLIA [id number] [address] [address] [place] Protein [Mass/Vol] 8.0 g/dL Normal 6.3-8.0 [facility] Comment on above: Order Comment: Speci men Type: BLOOD SPECIMENOrdering Facility: [facility] Address: [address] [place] [address] Performed By: #### 2 4331-1, ####[facility] LABCLIA [id number] [facility] [address] [address] [place] Sodium [Moles/Vol] 134 mmol/L Low 136-144 [facility] Comment on above: Order Comment: Speci men Type: BLOOD SPECIMENOrdering Facility: [facility] Address: [address] [place] [address] Performed By: #### 2 4331-1, ####[facility] LABCLIA [id number] [place] [address] [place] Urea nitrogen [Mass/Vol] 24 mg/dL Normal 9-24 [facility] Comment on above: Order Comment: Speci men Type: BLOOD SPECIMENOrdering Facility: [facility] Address: [address] [place] [address] Performed By: #### 2 4331-1, ####[facility] LABCLIA [id number] [facility] [address] [place] [address] [place] HbA1c (Bld)on 04-06-2025 Average glucose Estimated from glycated hemoglobin (Bld) [Mass/Vol] 174 mg/dL Normal [facility] Comment on above: Order Comment: Speci men Type: BLOOD SPECIMENOrdering Facility: [facility] Address: [address] [place] [address] Result Comment: eAG: (Estimated average glucose) is a calculated value from HgbA1c and is chain sales representative of the average blood glucose level in the last 2-3 month period. Performed By: #### 5 5454-3 ####[facility] LABCLIA [id number] [address] [place] [address] [place] HbA1c (Bld) [Mass fraction] 7.7 % High 4.3-5.6 [facility] [place] Comment on above: Order Comment: Osmin lopez Type: BLOOD SPECIMENOrdering Facility: [facility] Address: [address] [place] [address] Result Comment: Keanu ican Diabetes Association guidelines indicate that patients with HgbA1c in the range 5.7-6.4% are at increased risk for development of diabetes, and intervention by lifestyle modification may be beneficial. HgbA1c greater or equal to 6.5% is considered diagnostic of diabetes. Performed By: #### 5 5454-3 ####[facility] LABCLIA [id number] [place] [id number] [facility] Lipid 1996 panelon 5 Cholesterol [Mass/Vol] 201 mg/dL High <200 [facility] Comment on above: Order Comment: Osmin lopez Type: BLOOD SPECIMENOrdering Facility: [facility] Address: [address] [place] [address] Result Comment: <200 mg/dL, Desirable 200-239 mg/dL, Borderline high >239 mg/dL, High Performed By: #### 2 4331-1, 57104-1 ####[facility] LABCLIA [id number] [address] [place] [address] [facility] Cholesterol in HDL [Mass/Vol] 29 mg/dL Low >39 [facility] [place] Comment on above: Order Comment: Osmin lopez Type: BLOOD SPECIMENOrdering Facility: [facility] Address: [address] [place] [address] Result Comment: 40-5 9 mg/dL, Acceptable >59 mg/dL, High: Negative risk factor for coronary heart disease <40 mg/dL, Low: Positive risk factor for coronary heart disease Performed By: #### 2 4331-1, 04059-3 ####[facility] LABCLIA [id number] [address] [place] [address] [facility] Cholesterol in LDL [Mass/Vol] 116 mg/dL High <100 [facility] [place] Comment on above: Order Comment: Osmin men Type: BLOOD SPECIMENOrdering Facility: [facility] Address: [address] [place] [address] Result Comment: <100 mg/dL, Optimal 100-129 mg/dL, Near optimal/above optimal 130-159 mg/dL, Borderline high 160-189 mg/dL, High >189 mg/dL, Very high Secondary prevention optimal LDL Cholesterol levels are recommended to be <70 mg/dL LDL cholesterol is calculated using the Baig-NIH equation. Performed By: #### 2 433-, ####[facility] LABCLIA [id number] [address] [address] [place] Cholesterol in LDL/Cholesterol in HDL [Mass ratio] 4.00 {ratio} High <2.54 [facility] [place] Comment on above: Order Comment: Osmin men Type: BLOOD SPECIMENOrdering Facility: [facility] Address: [address] [place] [address] Result Comment: Refe rence: 1. National Cholesterol Education Program ATP III Guideline At-A-Glance Quick Desk Reference: National Heart, Lung, and Blood Hines. National Institutes of Health. 2001: NIH Publication No. 01-3305. 2. An International Atherosclerosis Society position paper: global recommendations for the management of dyslipidemia: executive summary, Atherosclerosis. 2014: 232(2):410-413. Performed By: #### 2 433-, ####[facility] LABCLIA [id number] [address] [address] [place] Cholesterol in VLDL [Mass/Vol] 55 mg/dL High <30 [facility] [place] Comment on above: Order Comment: Manni john Type: BLOOD SPECIMENOrdering Facility: [facility] Address: [address] [place] [address] Performed By: #### 2 433-, ####[facility] LABCLIA [id number] [address] [address] [place] Cholesterol non HDL [Mass/Vol] 172 mg/dL High <130 [facility] [place] Comment on above: Order Comment: Speci men Type: BLOOD SPECIMENOrdering Facility: [facility] Address: [address] [place] [address] Result Comment: <130 mg/dL, Optimal 130-159 mg/dL, Near optimal/above optimal 160-189 mg/dL, Borderline high 190-219 mg/dL, High >219 mg/dL, Very high Secondary prevention optimal non HDL Cholesterol levels are recommended to be <100 mg/dL Performed By: #### 2 4331-1, 42667-3 ####[facility] LABCLIA [id number] [place] [address] [place] Cholesterol.total/Cholest domenic in HDL [Mass ratio] 6.93 {ratio} High <5.10 [facility] Comment on above: Order Comment: Speci men Type: BLOOD SPECIMENOrdering Facility: [facility] Address: [address] [place] [address] Performed By: #### 2 433-1, 10239-0 ####[facility] LABCLIA [id number] [place] [address] [place] FASTING TIME 10 hrs Normal [facility] [place] Comment on above: Order Comment: Speci men Type: BLOOD SPECIMENOrdering Facility: [facility] Address: [address] [place] [address] Performed By: #### 2 4331-1, 69691-7 ####[facility] LABCLIA [id number] [place] [id number] [place] Triglyceride [Mass/Vol] 318 mg/dL High <150 [facility] Comment on above: Order Comment: Speci men Type: BLOOD SPECIMENOrdering Facility: [facility] Address: [address] [place] [address] Result Comment: <150 mg/dL, Normal 150-199 mg/dL, Borderline high 200-499 mg/dL, High >499 mg/dL, Very high Performed By: #### 2 433-1, 95271-6 ####[facility] LABCLIA [id number] JIGAR ROSALES [address] [address] [place] CNOVon 01-08-2025 CNOV Office Visit (FAMPWS) ELIEL SOUZA ([id number]) 1970 M Date Time Provider Department 01/08/25 11:00 AM [facility] today, we recorded [...] HISTORY Diagnosis Date CAD (coronary artery disease), morongo coronary artery 2014 No PCI indicated. no industrial education teacher needed Closed fracture of femur ([facility]) 11/2010 Depressive disorder, not elsewhere classified Diabetes mellitus type 2 in obese DVT of lower extremity (deep venous thrombosis) ([facility]) 11/2010 left Esophageal reflux Essential hypertension CATY (obstructive sleep apnea) CPAP needs another sleep study machine set too high Pelvic fracture ([facility]) Seasonal allergic rhinitis Unspecified asthma(493.90) Diagnosed in [...] daily. Take (more content not included)... Normal [facility] CBC W Auto Differential pane l (Bld)on 12-22-2024 Basophils (Bld) [#/Vol] 0.07 10*3/uL Normal <0.11 [facility] [place] Comment on above: Order Comment: Speci men Type: BLOOD SPECIMENOrdering Facility: [facility] Address: [address] [place] [address] Performed By: #### 5 7021-8 ####[facility] LABCLIA [id number] [place] [address] [place] Basophils/100 WBC (Bld) 0.9 % Normal C [facility] Comment on above: Order Comment: Speci men Type: BLOOD SPECIMENOrdering Facility: [facility] Address: [address] [place] [address] Performed By: #### 5 7021-8 ####[facility] LABCLIA [id number] [place] [address] [place] Differential cell count method Nom (Bld) Auto Normal [facility] [place] Comment on above: Order Comment: Speci men Type: BLOOD SPECIMENOrdering Facility: [facility] Address: [address] [place] [address] Performed By: #### 5 7021-8 ####[facility] LABCLIA [id number] [address], [place] [address] [place] Eosinophils (Bld) [#/Vol] 0.40 10*3/uL Normal <0.46 [facility] [place] Comment on above: Order Comment: Speci men Type: BLOOD SPECIMENOrdering Facility: [facility] Address: [address] [place] [address] Performed By: #### 5 7021-8 ####[facility] LABCLIA [id number] [address], [place] [address] [place] Eosinophils/100 WBC (Bld) 5.3 % Normal [facility] [place] Comment on above: Order Comment: Speci men Type: BLOOD SPECIMENOrdering Facility: [facility] Address: [address] [place] [address] Performed By: #### 5 7021-8 ####[facility] LABCLIA [id number] [address], [place] [address] [place] Erythrocyte distribution width (RBC) [Ratio] 13.2 % Normal 11.5-15.0 [facility] [place] Comment on above: Order Comment: Speci men Type: BLOOD SPECIMENOrdering Facility: [facility] Address: [address] [place] [address] Performed By: #### 5 7021-8 ####[facility] LABCLIA [id number] [address], [place] [address] [place] Hematocrit (Bld) [Volume fraction] 50.0 % Normal 39.0-51.0 [facility] [place] Comment on above: Order Comment: Speci men Type: BLOOD SPECIMENOrdering Facility: [facility] Address: [address] [place] [address] Performed By: #### 5 7021-8 ####[facility] LABCLIA [id number] [address], [facility]95 [place] Hemoglobin (Bld) [Mass/Vol] 16.7 g/dL Normal 13.0-17.0 [facility] [place] Comment on above: Order Comment: Speci men Type: BLOOD SPECIMENOrdering Facility: [facility] Address: [address] [place] [address] Performed By: #### 5 7021-8 ####[facility] LABCLIA [id number] [place] [address] [place] Immature granulocytes (Bld) [#/Vol] 0.05 10*3/uL Normal <0.10 [facility] [place] Comment on above: Order Comment: Speci men Type: BLOOD SPECIMENOrdering Facility: [facility] Address: [address] [place] [address] Performed By: #### 5 7021-8 ####[facility] LABCLIA [id number] [place] [address] [place] Immature granulocytes/100 WBC (Bld) 0.7 % Normal [facility] [place] Comment on above: Order Comment: Speci men Type: BLOOD SPECIMENOrdering Facility: [facility] Address: [address] [place] [address] Performed By: #### 5 7021-8 ####[facility] LABCLIA [id number] [place] [address] [place] Lymphocytes (Bld) [#/Vol] 2.93 10*3/uL Normal 1.00-4.0 0 [facility] [place] Comment on above: Order Comment: Speci men Type: BLOOD SPECIMENOrdering Facility: [facility] Address: [address] [place] [address] Performed By: #### 5 7021-8 ####[facility] LABCLIA [id number] [place] [address] [place] Lymphocytes/100 WBC (Bld) 39.2 % Normal [facility] [place] Comment on above: Order Comment: Speci men Type: BLOOD SPECIMENOrdering Facility: [facility] Address: [address] [place] [address] Performed By: #### 5 7021-8 ####[facility] LABIA [id number] [address] [facility] MCH (RBC) [Entitic mass] 28.9 pg Normal 26.0-34.0 [facility] [place] Comment on above: Order Comment: Speci men Type: BLOOD SPECIMENOrdering Facility: [facility] Address: [address] [place] [address] Performed By: #### 5 7021-8 ####[facility] LABIA [id number] [place] [address] [place] MCHC (RBC) [Mass/Vol] 33.4 g/dL Normal 30.5-36.0 [facility] Comment on above: Order Comment: Speci men Type: BLOOD SPECIMENOrdering Facility: [facility] Address: [address] [place] [address] Performed By: #### 5 7021-8 ####[facility] [id number] [place] [address] [place] MCV (RBC) [Entitic vol] 86.7 fL Normal 80.0-100.0 C [facility] Comment on above: Order Comment: Speci men Type: BLOOD SPECIMENOrdering Facility: [facility] Address: [address] [place] [address] Performed By: #### 5 7021-8 ####[facility] LABIA [id number] [place] [address] [place] Monocytes (Bld) [#/Vol] 0.46 10*3/uL Normal <0.87 [facility] [place] Comment on above: Order Comment: Speci men Type: BLOOD SPECIMENOrdering Facility: [facility] Address: [address] [place] [address] Performed By: #### 5 7021-8 ####[facility] LABIA [id number] [address] [place] [address] [place] Monocytes/100 WBC (Bld) 6.1 % Normal [facility] Comment on above: Order Comment: Speci men Type: BLOOD SPECIMENOrdering Facility: [facility] Address: [address] [place] [address] Performed By: #### 5 7021-8 ####[facility] LABCLIA [id number] [address], [place] [address] [place] Neutrophils (Bld) [#/Vol] 3.57 10*3/uL Normal 1.45-7.5 0 [facility] [place] Comment on above: Order Comment: Speci men Type: BLOOD SPECIMENOrdering Facility: [facility] Address: [address] [place] [address] Performed By: #### 5 7021-8 ####[facility] LABCLIA [id number] [place] [address] [place] Neutrophils/100 WBC (Bld) 47.8 % Normal [facility] Comment on above: Order Comment: Speci men Type: BLOOD SPECIMENOrdering Facility: [facility] Address: [address] [place] [address] Performed By: #### 5 7021-8 ####[facility] LABCLIA [id number] [place] [address] [place] Nucleated RBC (Bld) [#/Vol] 10*3/uL Normal <0.01 [facility] [place] Comment on above: Order Comment: Speci men Type: BLOOD SPECIMENOrdering Facility: [facility] Address: [address] [place] [address] Performed By: #### 5 7021-8 ####[facility] LABCLIA [id number] [place] [id number] [place] Nucleated RBC/100 WBC (Bld) [Ratio] 0.0 /100 WBC Normal [facility] [place] Comment on above: Order Comment: Speci men Type: BLOOD SPECIMENOrdering Facility: [facility] Address: [address] [place] [address] Performed By: #### 5 7021-8 ####[facility] LABCLIA [id number] [place] [address] [place] Platelet mean volume (Bld) [Entitic vol] 12.2 fL Normal 9.0-12.7 [facility] [place] Comment on above: Order Comment: Speci men Type: BLOOD SPECIMENOrdering Facility: [facility] Address: [address] [place] [address] Performed By: #### 5 7021-8 ####[facility] LABIA [id number] [place] [address] [place] Platelets (Bld) [#/Vol] 135 10*3/uL Low 150-400 [facility] [place] Comment on above: Order Comment: Speci men Type: BLOOD SPECIMENOrdering Facility: [facility] Address: [address] [place] [address] Performed By: #### 5 7021-8 ####[facility] LABIA [id number] [place] [address] [place] RBC (Bld) [#/Vol] 5.77 10*6/uL Normal 4.20-6.00 [facility] Comment on above: Order Comment: Speci men Type: BLOOD SPECIMENOrdering Facility: [facility] Address: [address] [place] [address] Performed By: #### 5 7021-8 ####[facility] LABCLIA [id number] [place] [id number] [place] WBC (Bld) [#/Vol] 7.48 10*3/uL Normal 3.70-11.00 [facility] Comment on above: Order Comment: Speci men Type: BLOOD SPECIMENOrdering Facility: [facility] Address: [address] [place] [address] Performed By: #### 5 7021-8 ####[facility] LABCLIA [id number] [facility] [address] [address] [place] Cholesterol in LDL Direct as say [Mass/Vol]on 12-22-2024 Cholesterol in LDL [Mass/Vol] 65 mg/dL Normal <100 [facility] Comment on above: Order Comment: Speci men Type: BLOOD SPECIMENOrdering Facility: [facility] Address: [address] [place] [address] Result Comment: <100 mg/dL, Optimal 100-129 mg/dL, Near optimal/above optimal 130-159 mg/dL, Borderline high 160-189 mg/dL, High >189 mg/dL, Very high Secondary prevention optimal LDL Cholesterol levels are recommended to be < 70 mg/dL Performed By: #### 2 4331-1, 75454-8, ####[facility] LABCLIA [id number] [address] [address] [place] Cholesterol in VLDL [Mass/Vol] 62 mg/dL High <30 [facility] Comment on above: Order Comment: Speci men Type: BLOOD SPECIMENOrdering Facility: [facility] Address: [address] [place] [address] Performed By: #### 2 4331-1, 74309-8, ####[facility] LABCLIA [id number] [facility] [address] [address] [place] Comprehensive metabolic 2000 panelon 12-22-2024 Albumin [Mass/Vol] 4.0 g/dL Normal 3.9-4.9 [facility] Comment on above: Order Comment: Speci men Type: BLOOD SPECIMENOrdering Facility: [facility] Address: [address] [place] [address] Performed By: #### 2 4331-1, , ####[facility] LABCLIA [id number] [address] [address] [place] ALP [Catalytic activity/Vol] 109 U/L Normal 38-113 [facility] Comment on above: Order Comment: Speci men Type: BLOOD SPECIMENOrdering Facility: [facility] Address: [address] [place], [place] [address] Performed By: #### 2 4331-1, , ####[facility] LABCLIA [id number] [address] [address] [place] ALT [Catalytic activity/Vol] 27 U/L Normal 10-54 [facility] Comment on above: Order Comment: Speci men Type: BLOOD SPECIMENOrdering Facility: [facility] Address: [address] [place], [place] [address] Performed By: #### 2 4331-1, , ####[facility] LABCLIA [id number] [place] [address] [place] Anion gap [Moles/Vol] 11 mmol/L Normal 8-15 [facility] Comment on above: Order Comment: Speci men Type: BLOOD SPECIMENOrdering Facility: [facility] Address: [address] [place], [place] [address] Performed By: #### 2 4331-1, , ####[facility] LABIA [id number] [place] [id number] [place] AST [Catalytic activity/Vol] 26 U/L Normal 14-40 [facility] Comment on above: Order Comment: Speci men Type: BLOOD SPECIMENOrdering Facility: [facility] Address: [address] [place], [place] [address] Performed By: #### 2 4331-1, , ####[facility] LABCLIA [id number] [address] [address] [place] Bilirubin [Mass/Vol] 0.5 mg/dL Normal 0.2-1.3 [facility] Comment on above: Order Comment: Speci men Type: BLOOD SPECIMENOrdering Facility: [facility] Address: [address] [place], [place] [address] Performed By: #### 2 4331-1, 55001-5, ####[facility] LABCLIA [id number] [address] [address] [place] Calcium [Mass/Vol] 9.7 mg/dL Normal 8.5-10.2 [facility] Comment on above: Order Comment: Speci men Type: BLOOD SPECIMENOrdering Facility: [facility] Address: [address] [place], [place] [address] Performed By: #### 2 4331-1, 46494-0, ####[facility] LABCLIA [id number] [place] [address] [place] Chloride [Moles/Vol] 101 mmol/L Normal 98-107 [facility] Comment on above: Order Comment: Speci men Type: BLOOD SPECIMENOrdering Facility: [facility] Address: [address] [place], [place] [address] Performed By: #### 2 4331-1, , ####[facility] LABIA [id number] [place] [address] [place] CO2 [Moles/Vol] 27 mmol/L Normal 22-30 [facility] Comment on above: Order Comment: Speci men Type: BLOOD SPECIMENOrdering Facility: [facility] Address: [address] [place], [place] [address] Performed By: #### 2 4331-1, 56551-6, ####[facility] LABIA [id number] [address] [address] [place] Creatinine [Mass/Vol] 0.56 mg/dL Low 0.73-1.22 [facility] Comment on above: Order Comment: Speci men Type: BLOOD SPECIMENOrdering Facility: [facility] Address: [address] [place], [place] [address] Performed By: #### 2 4331-1, 74700-3, 97225-3 ####[facility] LABIA [id number] [place] [id number] [place] Creatinine and Glomerular filtration rate.predicted panel (S/P/Bld) 116 mL/min/1.73m??? Normal >=60 [facility] Comment on above: Order Comment: Osmin lopez Type: BLOOD SPECIMENOrdering Facility: [facility] Address: [address] [place] [address] Result Comment: Tia mated Glomerular Filtration Rate [...] actual GFR. Performed By: #### 2 4331-1, 37218-2, 68393-1 ####[facility] LABIA [id number] [place] [id number] [place] Glucose [Mass/Vol] 199 mg/dL High 74-99 [facility] Comment on above: Order Comment: Osmin lopez Type: BLOOD SPECIMENOrdering Facility: [facility] Address: [address] [place] [address] Result Comment: The [place] [employer] (ADA) provides guidance for cutoff [...] Standards of Medical Care in Diabetes 2016, [place] [employer]. Diabetes Care. 2016.39(Suppl 1). Performed By: #### 2 4331-1, 85170-3, ####[facility] LABCLIA [id number] [address] [address] [place] Potassium [Moles/Vol] 4.3 mmol/L Normal 3.7-5.1 [facility] Comment on above: Order Comment: Speci men Type: BLOOD SPECIMENOrdering Facility: [facility] Address: [address] [place], [place] [address] Performed By: #### 2 4331-1, 69049-8, ####[facility] LABCLIA [id number] [address] [address] [place] Protein [Mass/Vol] 7.4 g/dL Normal 6.3-8.0 [facility] Comment on above: Order Comment: Speci men Type: BLOOD SPECIMENOrdering Facility: [facility] Address: [address] [place], [place] [address] Performed By: #### 2 4331-1, , ####[facility] LABCLIA [id number] [address] [address] [place] Sodium [Moles/Vol] 139 mmol/L Normal 136-144 [facility] Comment on above: Order Comment: Speci men Type: BLOOD SPECIMENOrdering Facility: [facility] Address: [address] [place] [address] Performed By: #### 2 4331-1, , ####[facility] LABCLIA [id number] [address] [address] [place] Urea nitrogen [Mass/Vol] 15 mg/dL Normal 9-24 [facility] Comment on above: Order Comment: Speci men Type: BLOOD SPECIMENOrdering Facility: [facility] Address: [address] [place] [address] Performed By: #### 2 4331-1, , ####[facility] LABCLIA [id number] [address] [place] HbA1c (Bld)on 12-22-2024 Average glucose Estimated from glycated hemoglobin (Bld) [Mass/Vol] 186 mg/dL Normal [facility] Comment on above: Order Comment: Osmin lopez Type: BLOOD SPECIMENOrdering Facility: [facility] Address: [address] [place] [address] Result Comment: eAG: (Estimated average glucose) is a calculated value from HgbA1c and is chain sales representative of the average blood glucose level in the last 2-3 month period. Performed By: #### 5 5454-3 ####[facility] LABIA [id number] [address] HbA1c (Bld) [Mass fraction] 8.1 % High 4.3-5.6 [facility] [place] Comment on above: Order Comment: Osmin lopez Type: BLOOD SPECIMENOrdering Facility: [facility] Address: [address] [place] [address] Result Comment: Amer ican Diabetes Association guidelines indicate that patients with HgbA1c in the range 5.7-6.4% are at increased risk for development of diabetes, and intervention by lifestyle modification may be beneficial. HgbA1c greater or equal to 6.5% is considered diagnostic of diabetes. Performed By: #### 5 5454-3 ####[facility] LABIA [id number] [address] OF [facility] Lipid 1996 panelon 5 Cholesterol [Mass/Vol] 154 mg/dL Normal <200 [facility] Comment on above: Order Comment: Osmin lopez Type: BLOOD SPECIMENOrdering Facility: [facility] Address: [address] [place] [address] Result Comment: <200 mg/dL, Desirable 200-239 mg/dL, Borderline high >239 mg/dL, High Performed By: #### 2 4331-1, 06036-6, 75184-6 ####[facility] LABCLIA [id number] [address] [address] [facility] [place] Cholesterol in HDL [Mass/Vol] 27 mg/dL Low >39 [facility] [place] Comment on above: Order Comment: Speci men Type: BLOOD SPECIMENOrdering Facility: [facility] Address: [address] [place] [address] Result Comment: 40-5 9 mg/dL, Acceptable >59 mg/dL, High: Negative risk factor for coronary heart disease <40 mg/dL, Low: Positive risk factor for coronary heart disease Performed By: #### 2 4331-1, 48745-9, 34066-7 ####[facility] LABCLIA [id number] [address] Cholesterol in LDL [Mass/Vol] Normal [facility] [place] Comment on above: Order Comment: Speci men Type: BLOOD SPECIMENOrdering Facility: [facility] Address: [address] [place] [address] Result Comment: Unab le to calculate due to increased Triglycerides. See LDL-Chol, Direct. Performed By: #### 2 4331-1, 86733-6, 92625-0 ####[facility] LABCLIA [id number] [place] [id number] [facility] Cholesterol in LDL/Cholesterol in HDL [Mass ratio] Normal [facility] [place] Comment on above: Order Comment: Speci men Type: BLOOD SPECIMENOrdering Facility: [facility] Address: [address] [place] [address] Result Comment: Unab le to calculate due to elevated Triglycerides. Reference: 1. National Cholesterol Education Program ATP III Guideline At-A-Glance Quick Desk Reference: National Heart, Lung, and Blood Hines. National Institutes of Health. 2001: NIH Publication No. 01-3305. 2. An International Atherosclerosis Society position paper: global recommendations for the management of dyslipidemia: executive summary, Atherosclerosis. 2014: 232(2):410-413. Performed By: #### 2 4331-1, 45552-3, 46864-1 ####[facility] LABCLIA [id number] [address] [place] [address] [place] Cholesterol in VLDL [Mass/Vol] Normal [facility] [place] Comment on above: Order Comment: Speci men Type: BLOOD SPECIMENOrdering Facility: [facility] Address: [address] [id number] Result Comment: Unab le to calculate due to increased Triglycerides. See LDL-Chol, Direct. Performed By: #### 2 4331-1, 53824-9, ####[facility] LABCLIA [id number] [address] [place] [address] [place] Cholesterol non HDL [Mass/Vol] 127 mg/dL Normal <130 [facility] [place] Comment on above: Order Comment: Speci men Type: BLOOD SPECIMENOrdering Facility: [facility] Address: [address] [place] [address] Result Comment: <130 mg/dL, Optimal 130-159 mg/dL, Near optimal/above optimal 160-189 mg/dL, Borderline high 190-219 mg/dL, High >219 mg/dL, Very high Secondary prevention optimal non HDL Cholesterol levels are recommended to be <100 mg/dL Performed By: #### 2 4331-1, 97975-9, ####[facility] LABCLIA [id number] [address] [address] [place] Cholesterol.total/Cholest domenic in HDL [Mass ratio] 5.70 {ratio} High <5.10 [facility] Comment on above: Order Comment: Speci men Type: BLOOD SPECIMENOrdering Facility: [facility] Address: [address] [place] [id number] Performed By: #### 2 4331-1, 26014-3, ####[facility] LABCLIA [id number] [address] [address] [place] FASTING TIME 12 hrs Normal [facility] [place] Comment on above: Order Comment: Speci men Type: BLOOD SPECIMENOrdering Facility: [facility] Address: [address] [place], [place] [address] Performed By: #### 2 4331-1, 00057-2, 85230-4 ####[facility] LABIA [id number] [address] [address] [place] [facility] Triglyceride [Mass/Vol] 594 mg/dL High <150 [facility] Comment on above: Order Comment: Speci men Type: BLOOD SPECIMENOrdering Facility: [facility] Address: [address] [place] [id number] Result Comment: <150 mg/dL, Normal 150-199 mg/dL, Borderline high 200-499 mg/dL, High >499 mg/dL, Very high Performed By: #### 2 4331-1, 66376-9, 51644-9 ####[facility] LABCLIA [id number] [place] [id number] [facility] [place] Javy 12-10-2024 [place] Telephone (ADMWST) ELIEL SOUZA ([id number]) 1970 M Date Time Provider Department 12/10/24 [...] medication that he was requesting? 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 Normal [facility]OU[facility] ([id number]) 1970 [place] Date Time Provider Department 08/27/24 [facility] During your visit today, we recorded the following information about you: Mary Jane Wade RN 08/27/2024 1:27 PM Signed Phong pharmacist @ [facility] calling to let provider know that [...] with hyperglycemia, wi* Coronary artery disease involving morongo ragland*07/05/2014 Obstructive sleep apnea treated with BiPAP [...] Nicotine use (more content not included)... Normal [facility] CNOVon 08-24-2024 CNOV Office Visit (FAMPWS) GONZALOELIEL ([id number]) 1970 M Date Time Provider Department 08/24/24 [...] does get some anxiety when [place]. His chest gets a [...] HISTORY Diagnosis Date CAD (coronary artery disease), morongo coronary artery 2014 No PCI indicated. no industrial education teacher needed Closed fracture of femur ([facility]) 11/2010 Depressive disorder, not elsewhere classified Diabetes mellitus type 2 in obese DVT of lower extremity (deep venous thrombosis) ([facility]) 11/2010 left Esophageal reflux Essential hypertension CATY (obstructive sleep apnea) CPAP needs another sleep study machine set too high Pelvic fracture ([facility]) Seasonal allergic rhinitis Unspecified asthma(493.90) Diagnosed in [...] by mouth (more content not included)... Normal [facility] CBC panel Auto (Bld)on 08-11 Erythrocyte distribution width (RBC) [Ratio] 13.7 % Normal 11.5-15.0 [facility] [place] Comment on above: Order Comment: Speci men Type: BLOOD SPECIMENOrdering Facility: [facility] Address: [address] [place] [address] Performed By: #### 5 8410-2 ####[facility] LABIA [id number] [place] [address] [place] Hematocrit (Bld) [Volume fraction] 49.3 % Normal 39.0-51.0 [facility] [place] Comment on above: Order Comment: Speci men Type: BLOOD SPECIMENOrdering Facility: [facility] Address: [address] [place] [address] Performed By: #### 5 8410-2 ####[facility] LABIA [id number] [place] [address] [place] Hemoglobin (Bld) [Mass/Vol] 16.4 g/dL Normal 13.0-17.0 [facility] [place] Comment on above: Order Comment: Speci men Type: BLOOD SPECIMENOrdering Facility: [facility] Address: [address] [place] [address] Performed By: #### 5 8410-2 ####[facility] LABIA [id number] [place] [address] [place] MCH (RBC) [Entitic mass] 27.9 pg Normal 26.0-34.0 [facility] [place] Comment on above: Order Comment: Speci men Type: BLOOD SPECIMENOrdering Facility: [facility] Address: [address] [place] [address] Performed By: #### 5 8410-2 ####[facility] LABIA [id number] [place] [address] [place] MCHC (RBC) [Mass/Vol] 33.3 g/dL Normal 30.5-36.0 [facility] Comment on above: Order Comment: Speci men Type: BLOOD SPECIMENOrdering Facility: [facility] Address: [address] [place] [address] Performed By: #### 5 8410-2 ####[facility] LABCLIA [id number] [place] [address] [place] MCV (RBC) [Entitic vol] 84.0 fL Normal 80.0-100.0 [facility] Comment on above: Order Comment: Speci men Type: BLOOD SPECIMENOrdering Facility: [facility] Address: [address] [place] [address] Performed By: #### 5 8410-2 ####[facility] LABIA [id number] [place] [address] [place] Nucleated RBC (Bld) [#/Vol] 10*3/uL Normal <0.01 [facility] [place] Comment on above: Order Comment: Speci men Type: BLOOD SPECIMENOrdering Facility: [facility] Address: [address] [place] [address] Performed By: #### 5 8410-2 ####[facility] LABIA [id number] [place] [address] [place] Platelet mean volume (Bld) [Entitic vol] 11.9 fL Normal 9.0-12.7 [facility] [place] Comment on above: Order Comment: Speci men Type: BLOOD SPECIMENOrdering Facility: [facility] Address: [address] [place] [address] Performed By: #### 5 8410-2 ####[facility] LABIA [id number] [place] [address] [place] Platelets (Bld) [#/Vol] 156 10*3/uL Normal 150-400 [facility] [place] Comment on above: Order Comment: Speci men Type: BLOOD SPECIMENOrdering Facility: [facility] Address: [address] [place] [address] Performed By: #### 5 8410-2 ####[facility] LABIA [id number] [place] [address] [place] RBC (Bld) [#/Vol] 5.87 10*6/uL Normal 4.20-6.00 [facility] Comment on above: Order Comment: Speci men Type: BLOOD SPECIMENOrdering Facility: [facility] Address: [address] [place] [address] Performed By: #### 5 8410-2 ####[facility] LABCLIA [id number] [place] [address] [place] WBC (Bld) [#/Vol] 6.21 10*3/uL Normal 3.70-11.00 [facility] Comment on above: Order Comment: Speci men Type: BLOOD SPECIMENOrdering Facility: [facility] Address: [address] [place] [address] Performed By: #### 5 8410-2 ####[facility] LABCLIA [id number] [place] [address] [place] Comprehensive metabolic 2000 panelon 08-11-2024 Albumin [Mass/Vol] 4.0 g/dL Normal 3.9-4.9 [facility] Comment on above: Order Comment: Speci men Type: BLOOD SPECIMENOrdering Facility: [facility] Address: [address] [place] [address] Performed By: #### 2 4323-8 ####[facility] LABCLIA [id number] [place] [address] [place] ALP [Catalytic activity/Vol] 110 U/L Normal 38-113 [facility] Comment on above: Order Comment: Speci men Type: BLOOD SPECIMENOrdering Facility: [facility] Address: [address] [place] [address] Performed By: #### 2 4323-8 ####[facility] LABCLIA [id number] [place] [address] [place] ALT [Catalytic activity/Vol] 37 U/L Normal 10-54 [facility] Comment on above: Order Comment: Speci men Type: BLOOD SPECIMENOrdering Facility: [facility] Address: [address] [place] [address] Result Comment: Shankar danni removed prior to analysis. Performed By: #### 2 4323-8 ####[facility] LABCLIA [id number] [place] [address] [place] Anion gap [Moles/Vol] 11 mmol/L Normal 8-15 [facility] Comment on above: Order Comment: Speci men Type: BLOOD SPECIMENOrdering Facility: [facility] Address: [address] [place] [address] Performed By: #### 2 4323-8 ####[facility] LABIA [id number] [place] [address] [place] AST [Catalytic activity/Vol] 48 U/L High 14-40 [facility] Comment on above: Order Comment: Speci men Type: BLOOD SPECIMENOrdering Facility: [facility] Address: [address] [place] [address] Result Comment: Shankar danni removed prior to analysis. Performed By: #### 2 4323-8 ####[facility] LABIA [id number] [place] [address] [place] Bilirubin [Mass/Vol] 0.6 mg/dL Normal 0.2-1.3 [facility] Comment on above: Order Comment: Speci men Type: BLOOD SPECIMENOrdering Facility: [facility] Address: [address] [place] [address] Performed By: #### 2 4323-8 ####[facility] LABIA [id number] [place] [address] [place] Calcium [Mass/Vol] 9.7 mg/dL Normal 8.5-10.2 [facility] Comment on above: Order Comment: Speci men Type: BLOOD SPECIMENOrdering Facility: [facility] Address: [address] [place] [address] Performed By: #### 2 4323-8 ####[facility] LABCLIA [id number] [place] [address] [place] Chloride [Moles/Vol] 97 mmol/L Low 98-107 [facility] Comment on above: Order Comment: Speci men Type: BLOOD SPECIMENOrdering Facility: [facility] Address: [address] [place] [address] Performed By: #### 2 4323-8 ####[facility] LABCLIA [id number] [place] [address] [place] CO2 [Moles/Vol] 25 mmol/L Normal 22-30 [facility] Comment on above: Order Comment: Speci men Type: BLOOD SPECIMENOrdering Facility: [facility] Address: [address] [place] [address] Performed By: #### 2 4323-8 ####[facility] LABCLIA [id number] [place] [address] [place] Creatinine [Mass/Vol] 0.57 mg/dL Low 0.73-1.22 [facility] Comment on above: Order Comment: Speci men Type: BLOOD SPECIMENOrdering Facility: [facility] Address: [address] [place] [address] Performed By: #### 2 4323-8 ####[facility] LABIA [id number] [place] [address] [place] Creatinine and Glomerular filtration rate.predicted panel (S/P/Bld) 115 mL/min/1.73m??? Normal >=60 [facility] Comment on above: Order Comment: Speci men Type: BLOOD SPECIMENOrdering Facility: [facility] Address: [address] [place] [address] Result Comment: Tia mated Glomerular Filtration Rate [...] actual GFR. Performed By: #### 2 4323-8 ####[facility] LABIA [id number] [place] [address] [place] Glucose [Mass/Vol] 240 mg/dL High 74-99 [facility] Comment on above: Order Comment: Osmin men Type: BLOOD SPECIMENOrdering Facility: [facility] Address: [address] [place] [address] Result Comment: The [place] Diabetes Association (ADA) provides guidance for cutoff [...] Standards of Medical Care in Diabetes 2016, [place] Diabetes Association. Diabetes Care. 2016.39(Suppl 1). Performed By: #### 2 4323-8 ####[facility] LABIA [id number] [place] [address] [place] Potassium [Moles/Vol] 4.6 mmol/L Normal 3.7-5.1 [facility] Comment on above: Order Comment: Osmin men Type: BLOOD SPECIMENOrdering Facility: [facility] Address: [address] [place] [address] Performed By: #### 2 4323-8 ####[facility] LABIA [id number] [place] [address] [place] Protein [Mass/Vol] 7.4 g/dL Normal 6.3-8.0 [facility] Comment on above: Order Comment: Osmin men Type: BLOOD SPECIMENOrdering Facility: [facility] Address: [address] [place] [address] Performed By: #### 2 4323-8 ####[facility] LABCLIA [id number] [place] [address] [place] Sodium [Moles/Vol] 133 mmol/L Low 136-144 [facility] Comment on above: Order Comment: Speci men Type: BLOOD SPECIMENOrdering Facility: [facility] Address: [address] [place] [address] Performed By: #### 2 4323-8 ####[facility] LABIA [id number] [place] [address] [place] Urea nitrogen [Mass/Vol] 11 mg/dL Normal 9-24 [facility] Comment on above: Order Comment: Speci men Type: BLOOD SPECIMENOrdering Facility: [facility] Address: [address] [place] [address] Performed By: #### 2 4323-8 ####[facility] LABIA [id number] [place] [address] [place] HbA1c (Bld)on 08-11-2024 Average glucose Estimated from glycated hemoglobin (Bld) [Mass/Vol] 209 mg/dL Normal [facility] Comment on above: Order Comment: Speci men Type: BLOOD SPECIMENOrdering Facility: [facility] Address: [address] [place] [address] Result Comment: eAG: (Estimated average glucose) is a calculated value from HgbA1c and is chain sales representative of the average blood glucose level in the last 2-3 month period. Performed By: #### 5 5454-3 ####[facility] [id number] [place] [address] [place] HbA1c (Bld) [Mass fraction] 8.9 % High 4.3-5.6 [facility] Comment on above: Order Comment: Speci men Type: BLOOD SPECIMENOrdering Facility: [facility] Address: [address] [place] [address] Result Comment: Ameddie ican Diabetes Association guidelines indicate that patients with HgbA1c in the range 5.7-6.4% are at increased risk for development of diabetes, and intervention by lifestyle modification may be beneficial. HgbA1c greater or equal to 6.5% is considered diagnostic of diabetes. Performed By: #### 5 5454-3 ####[facility] LABANA [id number] [facility] [place] [address] [facility] CNOVon 05-22-2024 CNOV Office Visit (FAMPWS) ELIEL SOUZA ([id number]) 1970 M Date Time Provider Department 05/22/24 9:40 AM [facility] visit today, we recorded [...] issues. Hx of Ileostomy. Was seen at [facility] ED on 05/14/24 for abdominal pain. [...] as needed. Is not following with any Auditor Medical Claims, was referred to one last visit and [...] MEDICAL HISTORY 2014: CAD (coronary artery disease), morongo coronary artery Comment: No PCI indicated. 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 Normal [facility] CNOVon 05-14-2024 CNOV Office Visit (UCWSTR) ELIEL SOUZA ([id number]) 1970 M Date Time Provider Department 05/14/24 2:00 PM MATILDE GAN WSTR During your visit today, we recorded the following information about you: Temperature Pulse Respiration Blood pressure 97.5 degrees 95/minute minute 108/74 Weight 125.5 kg Matilde Gan APRN.GROUP WORK PROGRAM DIRECTOR 05/14/2024 2:30 PM Signed This note was created using AutoShagriter. Subjective Eliel Souza is a 53 year [...] going to an emergency room. Matilde Gan APRN.GROUP WORK PROGRAM DIRECTOR Allergies As of Date: 05/14/2024 (No Known Allergies) Date Reviewed: 05/14/2024 Reviewed by: Matilde Gan APRN.GROUP WORK PROGRAM DIRECTOR - Fully Assessed Reason for Visit: Diarrhea [...] 8 h (more content not included)... Normal [facility] ALBUMIN/CREATININE RATIO, UR INEon 05-09-2024 Albumin DL <= 20 mg/L (U) [Mass/Vol] mg/dL Normal [facility] Comment on above: Order Comment: Speci men Type: URINE SPECIMENOrdering Facility: [facility] Address: [address] [place] [address] Performed By: #### U ACR ####[facility] LABCLIA [id number] [place] [address] [place] Albumin/Creatinine (U) [Mass ratio] <9 Normal <30 [facility] Comment on above: Order Comment: Speci men Type: URINE SPECIMENOrdering Facility: [facility] Address: [address] [place] [address] Result Comment: Adul t Male and Female Nephrotic Criteria: <30 mg/g is considered normal to mildly increased 30-300 mg/g is considered moderately increased >300 mg/g is considered severely increased KDIGO. (2013). KDIGO 2012 Clinical Practice Guideline for the Evaluation and Management of Chronic Kidney Disease. Official Journal of the International Society of Nephrology, 3(1), 1-150. Performed By: #### U ACR ####[facility] LABCLIA [id number] [place] [address] [place] Creatinine (U) [Mass/Vol] 128.5 mg/dL Normal 20.0-300. 0 [facility] Comment on above: Order Comment: Speci men Type: URINE SPECIMENOrdering Facility: [facility] Address: [address] [place] [address] Performed By: #### U ACR ####[facility] LABCLIA [id number] [place] [address] [place] Comprehensive metabolic 2000 panelon 05-09-2024 Albumin [Mass/Vol] 3.8 g/dL Low 3.9-4.9 [facility] Comment on above: Order Comment: Speci men Type: BLOOD SPECIMENOrdering Facility: [facility] Address: [address] [place] [address] Performed By: #### 2 4331-1, 40350-1 ####[facility] LABCLIA [id number] [place] [id number] [place] ALP [Catalytic activity/Vol] 110 U/L Normal 38-113 [facility] Comment on above: Order Comment: Speci men Type: BLOOD SPECIMENOrdering Facility: [facility] Address: [address] [place] [address] Performed By: #### 2 4331-1, 41189-6 ####[facility] LABCLIA [id number] [place] [address] [place] ALT [Catalytic activity/Vol] 33 U/L Normal 10-54 [facility] Comment on above: Order Comment: Speci men Type: BLOOD SPECIMENOrdering Facility: [facility] Address: [address] [place] [address] Performed By: #### 2 4331-1, 39780-5 ####[facility] LABCLIA [id number] [place] [place] [id number] [place] Anion gap [Moles/Vol] 10 mmol/L Normal 8-15 [facility] Comment on above: Order Comment: Speci men Type: BLOOD SPECIMENOrdering Facility: [facility] Address: [address] [place] [address] Performed By: #### 2 4331-1, 68468-7 ####[facility] LABCLIA [id number] [place] [id number] [place] AST [Catalytic activity/Vol] 25 U/L Normal 14-40 [facility] [place] Comment on above: Order Comment: Speci men Type: BLOOD SPECIMENOrdering Facility: [facility] Address: [address] [place] [id number] Performed By: #### 2 4331-1, ####[facility] LABCLIA [id number] [place] [id number] [place] Bilirubin [Mass/Vol] 1.0 mg/dL Normal 0.2-1.3 [facility] Comment on above: Order Comment: Speci men Type: BLOOD SPECIMENOrdering Facility: [facility] Address: [address] [place] [address] Performed By: #### 2 4331-1, ####[facility] LABCLIA [id number] [place] [address] [place] Calcium [Mass/Vol] 9.3 mg/dL Normal 8.5-10.2 [facility] Comment on above: Order Comment: Speci men Type: BLOOD SPECIMENOrdering Facility: [facility] Address: [address] [place] [address] Performed By: #### 2 4331-1, ####[facility] LABCLIA [id number] [place] [address] [place] Chloride [Moles/Vol] 100 mmol/L Normal 98-107 [facility] Comment on above: Order Comment: Speci men Type: BLOOD SPECIMENOrdering Facility: [facility] Address: [address] [place] [id number] Performed By: #### 2 4331-1, ####[facility] LABCLIA [id number] [place] [id number] [place] CO2 [Moles/Vol] 24 mmol/L Normal 22-30 [facility] [place] Comment on above: Order Comment: Speci men Type: BLOOD SPECIMENOrdering Facility: [facility] Address: [address] [place], [place] [id number] Performed By: #### 2 4331-1, 13141-7 ####[facility] LABIA [id number] [place] [address] [place] Creatinine [Mass/Vol] 0.67 mg/dL Low 0.73-1.22 [facility] Comment on above: Order Comment: Osmin lopez Type: BLOOD SPECIMENOrdering Facility: [facility] Address: [address] [place] [address] Performed By: #### 2 4331-1, 64070-2 ####[facility] LABIA [id number] [place] [address] [place] Creatinine and Glomerular filtration rate.predicted panel (S/P/Bld) 110 mL/min/1.73m??? Normal >=60 [facility] [place] Comment on above: Order Comment: Osmin lopez Type: BLOOD SPECIMENOrdering Facility: [facility] Address: [address] [place] [address] Result Comment: Tia mated Glomerular Filtration Rate [...] actual GFR. Performed By: #### 2 4331-1, 62562-6 ####[facility] LABIA [id number] [place] [address] [place] Glucose [Mass/Vol] 192 mg/dL High 74-99 [facility] Comment on above: Order Comment: Osmin lopez Type: BLOOD SPECIMENOrdering Facility: [facility] Address: [address] [place] [address] Result Comment: The [place] Diabetes Association (ADA) provides guidance for cutoff [...] Standards of Medical Care in Diabetes 2016, [place] [employer]. Diabetes Care. 2016.39(Suppl 1). Performed By: #### 2 4331-, ####[facility] LABCLIA [id number] [place] [address] [place] Potassium [Moles/Vol] 4.6 mmol/L Normal 3.7-5.1 [facility] Comment on above: Order Comment: Speci men Type: BLOOD SPECIMENOrdering Facility: [facility] Address: [address] [place] [address] Performed By: #### 2 43310-17, ####[facility] LABIA [id number] [place] [address] [place] Protein [Mass/Vol] 7.0 g/dL Normal 6.3-8.0 [facility] Comment on above: Order Comment: Speci men Type: BLOOD SPECIMENOrdering Facility: [facility] Address: [address] [place] [address] Performed By: #### 2 43310-17, ####[facility] LABCLIA [id number] [place] [address] [place] Sodium [Moles/Vol] 134 mmol/L Low 136-144 [facility] Comment on above: Order Comment: Speci men Type: BLOOD SPECIMENOrdering Facility: [facility] Address: [address] [place] [address] Performed By: #### 2 4331-, ####[facility] LABCLIA [id number] [address] [address] [place] Urea nitrogen [Mass/Vol] 10 mg/dL Normal 9-24 [facility] [place] Comment on above: Order Comment: Osmin lopez Type: BLOOD SPECIMENOrdering Facility: [facility] Address: [address] [place] [address] Performed By: #### 2 4331-1, 38299-3 ####[facility] LABCLIA [id number] [place] [address] [place] HbA1c (Bld)on 05-09-2024 Average glucose Estimated from glycated hemoglobin (Bld) [Mass/Vol] 212 mg/dL Normal [facility] [place] Comment on above: Order Comment: Osmin lopez Type: BLOOD SPECIMENOrdering Facility: [facility] Address: [address] [place] [address] Result Comment: eAG: (Estimated average glucose) is a calculated value from HgbA1c and is chain sales representative of the average blood glucose level in the last 2-3 month period. Performed By: #### 5 5454-3 ####[facility] LABCLIA [id number] [place] [address] [place] HbA1c (Bld) [Mass fraction] 9.0 % High 4.3-5.6 [facility] [place] Comment on above: Order Comment: Osmin lopez Type: BLOOD SPECIMENOrdering Facility: [facility] Address: [address] [place] [address] Result Comment: [place] Diabetes Association guidelines indicate that patients with HgbA1c in the range 5.7-6.4% are at increased risk for development of diabetes, and intervention by lifestyle modification may be beneficial. HgbA1c greater or equal to 6.5% is considered diagnostic of diabetes. Performed By: #### 5 5454-3 ####[facility] LABCLIA [id number] [place] [id number] [place] Lipid 1996 panelon Cholesterol [Mass/Vol] 105 mg/dL Normal <200 [facility] Comment on above: Order Comment: Osmin lopez Type: BLOOD SPECIMENOrdering Facility: [facility] Address: [address] [place] [address] Result Comment: <200 mg/dL, Desirable 200-239 mg/dL, Borderline high >239 mg/dL, High Performed By: #### 2 4331-1, 25012-6 ####[facility] LABCLIA [id number] [address] [address] [place] Cholesterol in HDL [Mass/Vol] 18 mg/dL Low >39 [facility] [place] Comment on above: Order Comment: Speci men Type: BLOOD SPECIMENOrdering Facility: [facility] Address: [address] [place] [address] Result Comment: 40-5 9 mg/dL, Acceptable >59 mg/dL, High: Negative risk factor for coronary heart disease <40 mg/dL, Low: Positive risk factor for coronary heart disease Performed By: #### 2 4331-1, 29752-8 ####[facility] LABCLIA [id number] [place] [address] [place] Cholesterol in LDL [Mass/Vol] 48 mg/dL Normal <100 [facility] [place] Comment on above: Order Comment: Manni men Type: BLOOD SPECIMENOrdering Facility: [facility] Address: [address] [place] [address] Result Comment: <100 mg/dL, Optimal 100-129 mg/dL, Near optimal/above optimal 130-159 mg/dL, Borderline high 160-189 mg/dL, High >189 mg/dL, Very high Secondary prevention optimal LDL Cholesterol levels are recommended to be < 70 mg/dL Performed By: #### 2 4331-1, 06197-9 ####[facility] LABCLIA [id number] [place] [address] [place] Cholesterol in LDL/Cholesterol in HDL [Mass ratio] 2.67 {ratio} High <2.54 [facility] [place] Comment on above: Order Comment: Speci men Type: BLOOD SPECIMENOrdering Facility: [facility] Address: [address] [place] [address] Result Comment: Refe carlene: 1. National Cholesterol Education Program ATP III Guideline At-A-Glance Quick Desk Reference: National Heart, Lung, and Blood Hines. National Institutes of Health. 2001: NIH Publication No. 01-3305. 2. An International Atherosclerosis Society position paper: global recommendations for the management of dyslipidemia: executive summary, Atherosclerosis. 2014: 232(2):410-413. Performed By: #### 2 4331-1, 26201-2 ####[facility] LABCLIA [id number] [place] [address] [place] Cholesterol in VLDL [Mass/Vol] 39 mg/dL High <30 [facility] [place] Comment on above: Order Comment: Osmin lopez Type: BLOOD SPECIMENOrdering Facility: [facility] Address: [address] [place] [address] Performed By: #### 2 4331-1, 73520-7 ####[facility] LABIA [id number] [place] [address] [place] Cholesterol non HDL [Mass/Vol] 87 mg/dL Normal <130 [facility] [place] Comment on above: Order Comment: Osmin lopez Type: BLOOD SPECIMENOrdering Facility: [facility] Address: [address] [place] [address] Result Comment: <130 mg/dL, Optimal 130-159 mg/dL, Near optimal/above optimal 160-189 mg/dL, Borderline high 190-219 mg/dL, High >219 mg/dL, Very high Secondary prevention optimal non HDL Cholesterol levels are recommended to be <100 mg/dL Performed By: #### 2 4331-1, 14664-7 ####[facility] LABIA [id number] [place] [address] [place] Cholesterol.total/Cholest domenic in HDL [Mass ratio] 5.83 {ratio} High <5.10 [facility] Comment on above: Order Comment: Osmin lopez Type: BLOOD SPECIMENOrdering Facility: [facility] Address: [address] [place] [address] Performed By: #### 2 4331-1, 45219-8 ####[facility] LABCLIA [id number] [place] [address] [place] FASTING TIME 10 hrs Normal [facility] Comment on above: Order Comment: Speci men Type: BLOOD SPECIMENOrdering Facility: [facility] Address: [address] [place] [address] Performed By: #### 2 4331-1, 53586-6 ####[facility] LABCLIA [id number] [place] [address] [place] Triglyceride [Mass/Vol] 194 mg/dL High <150 [facility] Comment on above: Order Comment: Speci men Type: BLOOD SPECIMENOrdering Facility: [facility] Address: [address] [place] [address] Result Comment: <150 mg/dL, Normal 150-199 mg/dL, Borderline high 200-499 mg/dL, High >499 mg/dL, Very high Performed By: #### 2 4331-1, 23145-8 ####[facility] LABCLIA [id number] [place] [address] [place] Absolute lymphocyte countOrd ered By: Bruce Dong on 01-29-2024 Lymphocytes Auto (Unsp spec) [#/Vol] 2.23 10*3/uL 0.83-4.51 [facility] Automated lymphocyte count a s percentage of total leukocytesOrdered By: Bruce Dong on 01-29-2024 Lymphocytes/100 WBC Auto (Unsp spec) 39.1 % 19-41 [facility] Basophil percentageOrdered B y: Bruce Dong on 01-29-2024 Basophils/100 WBC (Bld) 1.1 % 0-1 [facility] Chloride [Moles/Vol] 105 mmol/L 98-[facility] Eosin[facility] WBC (Bld) 4.7 % 0-5 [facility] Glucose [Mass/Vol] 415 mg/dL 74-[address] [facility] [facility] Comment on above: Slight Lipemia, Resu lt may be falsely increased.Glucose result greater than or equal to 200 mg/dLsuggests DIABETES MELLITUS per A.D.A. criteria. Hemoglobin (Bld) [Mass/Vol] 15.3 g/dL 13.0-16.5 [facility] Monocytes/100 WBC (Bld) 7.4 % 0-10 [facility] Neutrophils (Bld) [#/Vol] 2.6 10*3/uL 2.0-7.7 [facility] Neutrophils/100 WBC (Bld) 46.1 % 47-70 [facility] Potassium [Moles/Vol] 3.9 mmol/L 3.5-5.1 [facility] Comment on above: Moderate Hemolysis, Result may be falsely increased.-Slight Lipemia, Result may be falsely increased. Sodium [Moles/Vol] 135 mmol/L 136-145 [facility] WBC (Bld) [#/Vol] 5.7 10*3/uL 4.4-11.0 [facility] Blood platelet adequacy dete ction by light microscopyOrdered By: Bruce Dong on 01-29-2024 Platelets LM Ql (Bld) SLT DEC ADEQ [facility] Determination of erythrocyte mean corpuscular volume (MCV)Ordered By: Bruce Dong on 01-29-2024 MCV (RBC) [Entitic vol] 85.2 fL 80-94 [facility] Erythrocyte distribution wid th ratioOrdered By: Bruce Dong on 01-29-2024 Erythrocyte distribution width (RBC) [Ratio] 13.2 % 11.6-14.6 [facility] Erythrocyte distribution wid th standard deviationOrdered By: Bruce Dong on 01-29-2024 Erythrocyte distribution width (RBC) [Entitic vol] 41.0 fL 35.1-43.9 [facility] Hematocrit Auto (Bld) [Volum e fraction]Ordered By: Bruce Dong on 01-29-2024 Hematocrit (Bld) [Volume fraction] 44.4 % 40-54 [facility] Immature granulocytes/100 WB C Auto (Bld)Ordered By: Bruce Dong on 01-29-2024 Immature granulocytes/100 WBC (Bld) 1.600 % 0.0-0.9 [facility] Comment on above: IG% - Immature Granu locytes (promyelocytes, myelocytes and metamyelocytes) > 1% indicates that a LEFT SHIFT is Present. Laboratory - Chemistry and C hemistry - challengeOrdered By: Bruce Dong on 01-29-2024 CO2 [Moles/Vol] 22.0 mmol/L 21.0-32.0 [facility] Comment on above: Slight Lipemia, Resu lt may be falsely increased. Magnesium [Mass/Vol] 1.6 mg/dL 1.6-2.6 [facility] Comment on above: Moderate Hemolysis, Result may be falsely increased.-Slight Lipemia, Result may be falsely increased. Natriuretic peptide B (Bld) [Mass/Vol] 56.4 pg/mL 0-100 [facility] Urea nitrogen/Creatinine [Mass ratio] 20.5 mg/mg 10-20 [facility] Laboratory - Hematology and Cell countsOrdered By: Bruce Dong on 01-29-2024 MCH (RBC) [Entitic mass] 29.4 pg 27.0-32.0 [facility] MCHC (RBC) [Mass/Vol] 34.5 g/dL 32-36 [facility] Nucleated RBC/100 WBC (Bld) [Ratio] 0 % 0-5 [facility] Platelet mean volume (Bld) [Entitic vol] 11.7 fL 6.2-12.0 [facility] Platelets (Bld) [#/Vol] 92 10*3/uL 150-450 [facility] Laboratory - Microbiology an d Antimicrobial susceptibilityOrdered By: Bruce Dong on 01-29-2024 SARS-CoV-2 (COVID-19) RNA LAZARO+probe Ql (Unsp spec) [facility] No Panel InformationOrdered By: Bruce Dong on 01-29-2024 Estimated Creatinine Clearance Calc 152.90 ml/min [facility] Estimated GFR (MDRD) Amer 132 mL/min >60 [facility] Comment on above: GFR Calc Estimated GFR (MDRD) Non-Af Amer 109 mL/min >60 [facility] Comment on above: Non- GFR Calc RBC Auto (Bld) [#/Vol]Ordere d By: Bruce Dong on 04-14-2024 RBC (Bld) [#/Vol] 5.21 10*6/uL 4.6-6.2 [facility] Serum or plasma calcium mohan urement (mass/volume)Ordered By: Bruce Dong on 01-29-2024 Calcium [Mass/Vol] 8.9 mg/dL 8.5-10.1 [facility] Comment on above: Slight Lipemia, Resu lt may be falsely increased. Serum or plasma creatinine m easurement (mass/volume)Ordered By: Bruce Dong on 01-29-2024 Creatinine [Mass/Vol] 0.78 mg/dL 0.70-1.30 [facility] Comment on above: Slight Lipemia, Resu lt may be falsely increased.The validity of the calculated GFR & GFRAA in patients over 70 years has not been determined. Clinical correlation is essential. Serum or plasma urea nitroge n measurement (mass/volume)Ordered By: Bruce Dong on 01-29-2024 Urea nitrogen [Mass/Vol] 16 mg/dL 7-18 [facility] Comment on above: Slight Lipemia, Resu lt may be falsely increased. Thin prep Papanicolaou smear with manual screeningOrdered By: Bruce Dong on 01-29-2024 Thin prep Papanicolaou smear with manual screening 8 5-15 [facility] XR CHEST 2V FRONTAL/LATon [facility] XR Chest PA and Lateralon IMPRESSION: No acute radiographic abnormality. Senior Planning Analyst: BJORN Transcribe Date/Time: Sep 21 2023 4:13P Dictated by : LINDA SANDY MD This examination was interpreted and the report reviewed and electronically signed by: LINDA SANDY MD on Sep 21 2023 4:14PM [facility] DIVISION OF RADIOLOGY * * [...] right mid rib. DIVISION OF RADIOLOGY Provider, [facility] - 09/21/2023 * * *Final Report* * [...] rib. IMPRESSION IMPRESSION: No acute radiographic abnormality. Senior Planning Analyst: PSCB Transcribe Date/Time: Sep 21 2023 4:13P Dictated by : LINDA SANDY MD This examination was interpreted and the report reviewed and electronically signed by: LINDA SANDY MD on Sep 21 2023 4:14PM EST [facility] Radiology Study observation (narrative) [facility] XR Chest PA and LateralOrder ed By: Ccf Provider on 09-21-2023 [facility] Absolute lymphocyte countOrd ered By: Dr. Whiteside on 12-06-2022 Lymphocytes Auto (Unsp spec) [#/Vol] 0.94 10*3/uL 0.83-4.51 [facility] Basophil percentageOrdered B y: Dr. Whiteside on 12-06-2022 Basophils/100 WBC (Bld) 0.5 % 0-1 [facility] Chloride [Moles/Vol] 99 mmol/L 98-107 [facility] Eosinophils/100 WBC (Bld) 1.0 % 0-5 [facility] Glucose [Mass/Vol] 346 mg/dL 74-106 [facility] Comment on above: Glucose result great er than or equal to 200 mg/dLsuggests DIABETES MELLITUS per A.D.A. criteria. Neutrophils (Bld) [#/Vol] 5.7 10*3/uL 2.0-7.7 [facility] Neutrophils/100 WBC (Bld) 73.9 % 47-70 [facility] Potassium [Moles/Vol] 4.1 mmol/L 3.5-5.1 [facility] Sodium [Moles/Vol] 132 mmol/L 136-145 [facility] WBC (Bld) [#/Vol] 7.7 10*3/uL 4.4-11.0 [facility] Blood erythrocytes count (nu mber/volume)Ordered By: Dr. Whiteside on 12-06-2022 RBC (Bld) [#/Vol] 6.44 10*6/uL 4.6-6.2 [facility] Blood hemoglobin measurement (mass/volume)Ordered By: Dr. Whiteside on 12-06-2022 Hemoglobin (Bld) [Mass/Vol] 18.5 g/dL 13.0-16.5 [facility] Blood lymphocytes/100 leukoc ytesOrdered By: Dr. Whiteside on 12-06-2022 Lymphocytes/100 WBC (Bld) 12.2 % 19-41 [facility] Blood monocytes/100 leukocyt esOrdered By: Dr. Whiteside on 12-06-2022 Monocytes/100 WBC (Bld) 11.6 % 0-10 [facility] Blood platelet mean volumeOr dered By: Dr. Whiteside on 12-06-2022 Platelet mean volume (Bld) [Entitic vol] 11.0 fL 6.2-12.0 [facility] Determination of erythrocyte mean corpuscular volume (MCV)Ordered By: Dr. Whiteside on 12-06-2022 MCV (RBC) [Entitic vol] 83.4 fL 80-94 [facility] Hematocrit Auto (Bld) [Volum e fraction]Ordered By: Dr. Whiteside on 12-06-2022 Hematocrit (Bld) [Volume fraction] 53.7 % 40-54 [facility] Laboratory - Chemistry and C hemistry - challengeOrdered By: Dr. Whiteside on 12-06-2022 CO2 [Moles/Vol] 22.0 mmol/L 21.0-32.0 [facility] Urea nitrogen/Creatinine [Mass ratio] 23.6 mg/mg 10-20 [facility] Laboratory - Hematology and Cell countsOrdered By: Dr. Whiteside on 12-06-2022 Erythrocyte distribution width (RBC) [Entitic vol] 39.5 fL 35.1-43.9 [facility] Erythrocyte distribution width (RBC) [Ratio] 13.2 % 11.6-14.6 [facility] Immature granulocytes/100 WBC (Bld) 0.800 % 0.0-0.9 [facility] Comment on above: IG% - Immature Granu locytes (promyelocytes, myelocytes and metamyelocytes) > 1% indicates that a LEFT SHIFT is Present. MCH (RBC) [Entitic mass] 28.7 pg 27.0-32.0 [facility] Nucleated RBC/100 WBC (Bld) [Ratio] 0 % 0-5 [facility] MCHC Auto (RBC) [Mass/Vol]Or dered By: Dr. Whiteside on 12-06-2022 MCHC (RBC) [Mass/Vol] 34.5 g/dL 32-36 [facility] No Panel InformationOrdered By: Dr. Whiteside on 12-06-2022 Estimated Creatinine Clearance Calc 91.78 ml/min [facility] Estimated GFR (MDRD) Amer 103 mL/min >60 [facility] Comment on above: GFR Calc Estimated GFR (MDRD) Non-Af Amer 85 mL/min >60 [facility] Comment on above: Non- GFR Calc Troponin I High Sensitivity 15 pg/mL 3.0-78.0 [facility] Comment on above: Please Note: New Jane t Units and Gender Specific Reference Ranges. For more information see Policy Stat Procedure [place] High Sensitivity Troponin (TNIH) and attachments. Platelets bldOrdered By: Dr. Whiteside on 12-06-2022 Platelets (Bld) [#/Vol] 125 10*3/uL 150-450 [facility] Review by pathologistOrdered By: Dr. Whiteside on 12-06-2022 Pathologist review Jl (Unsp spec) [Interp] May chen [facility] Serum or plasma calcium mohan urement (mass/volume)Ordered By: Dr. Whiteside on 12-06-2022 Calcium [Mass/Vol] 9.5 mg/dL 8.5-10.1 [facility] Serum or plasma creatinine m easurement (mass/volume)Ordered By: Dr. Whiteside on 12-06-2022 Creatinine [Mass/Vol] 0.98 mg/dL 0.70-1.30 [facility] Comment on above: The validity of the calculated GFR & GFRAA in patients over 70 years has not been determined. Clinical correlation is essential. Serum or plasma urea nitroge n measurement (mass/volume)Ordered By: Dr. Whiteside on 12-06-2022 Urea nitrogen [Mass/Vol] 23 mg/dL 7- [facility] Thin prep Papanicolaou smear with manual screeningOrdered By: Dr. Whiteside on 12-06-2022 Thin prep Papanicolaou smear with manual screening 11 - [facility] ANES POSTPROC EVALon 020 ANES POSTPROC EVAL HNO ID: [id number] Author: Raiza Negron Service: ? Author Type: Anesthesiologist Type: Anesthesia Postprocedure Evaluation Filed: 09/03/2020 6:07 PM Note Text: POST ANESTHESIA EVALUATION NOTE : 1970 Procedure Summary Date: 09/03/20 [place] An[place]hesia Start: 1619 Anesthesia Stop: 1746 [...] September 03, 2020 TIME: 6:06 PM CSN: [id number] [facility] ANES PRE-OPon 09-03-2020 ANES PRE-OP HNO ID: [id number] Author: Raiza Negron Service: ? Author Type: [...] BiPAP CARDIO (+) Coronary artery disease involving morongo coronary artery of morongo heart (+) DVT of lower extremity (deep [...] September 03, 2020 TIME: 4:02 PM CSN: [id number] [facility] OPERATIVE NOon 09-03-2020 OPERATIVE NO HNO ID: [id number] Author: Eileen Saha Service: Urology Author Type: Physician Type: Operative Report Filed: 09/03/2020 5:42 PM Note Text: OPERATIVE/PROCEDURE REPORT LOG ID: [id number] Surgery/Procedure Date: 09/03/2020 Incision/Procedure Start Time: 4:41 PM Incision Close/Procedure End Time: 5:40 PM Surgeon(s)/Procedura list(s) and Maintainability Engineer(s): Surgeon(s) and Role: * Eileen Saha - [...] 09/03/2020 5:02 PM Implantable Devices: None Drains: [place] Complications: None Anatomic Site: N/A Approach: Open Qualifier: None I/primary surgeon/proceduralis t performed the procedure with assistance. SIGNATURE: Eileen Saha MD PATIENT NAME: Eliel Souza DATE: September 03, 2020 TIME: 5:40 PM PAGER/CONTACT #: [phone] [facility] SURGICAL PATHOLOGYon CASE REPORT Normal [facility] Comment on above: Order Comment: Speci men Type: TISSUE SPECIMEN Result Comment: Surg ica Pathology Report Case: [id number] Authorizing Provider: Eileen Saha Collected: 09/03/2020 05:02 PM Ordering Location: [place] [facility] Received: 09/04/2020 06:58 AM Pathologist: Vilma Oakes MD Specimen: HYDROCELE SAC RIGHT Performed By: #### S #### [facility] CLIA [id number] [address] [place] [address] FINAL DIAGNOSIS Normal [facility] Comment on above: Order Comment: Speci men Type: TISSUE SPECIMEN Result Comment: Righ t inguinal tissue, excision Fibromembranous tissue with mesothelial lining compatible with hydrocele sac. Performed By: #### S #### [facility] CLIA [id number] [address] [place] [address] FINAL PERFORMING LAB Normal [facility] Comment on above: Order Comment: Speci men Type: TISSUE SPECIMEN Result Comment: Diag nostic interpretation performed at [facility], [address] [place] [address] CLIA# [id number] Anodize Machine Operator: Tyrone Douglass M.D. Performed By: #### S #### [facility] CLIA [id number] [address] [place] [address] GROSS DESCRIPTION Normal [facility] Comment on above: Order Comment: Speci men Type: TISSUE SPECIMEN Result Comment: Nellie Gilmore YDROCELE SAC RIGHT. Received in formalin labeled right hydrocele sac is a pink membranous segment of tissue measuring 6.5 x 3.5 x 1.3 cm. One side is smooth and glistening the other side is slightly roughened. The specimen is sectioned. Nursing Admin sections are submitted in formalin in 1 cassette. KVB/louise Gross examination performed at [facility], [address] [place] [address] CLIA# [id number] Performed By: #### S #### [facility] CLIA [id number] [address] [place] [address] XR FEMUR MINIMUM 2 VIEWS LEF Ton [...] AM Sign Date: 09/03/2020 10:22:08 AM Ordering Provider:[facility] Yady [facility] (DE) XR SPINE LUMBOSACRAL 2 OR 3 VIEWSon [...] Date: 09/03/2020 10:16:56 AM Ordering Provider:Mesfin Conteh [facility] (DE) Javy 09-02-2020 CNPN Telephone (UROLAE) ELIEL SOUZA ([id number]) 1970 Date Time Provider Department 09/02/20 EILEEN [...] without c*07/05/2014 More... Coronary artery disease involving morongo ragland*07/05/2014 More... Obstructive sleep apnea treated with [...] MARIE RUSH on 09/02/20 Normal [facility] HISTORY PHYSICALon 0 HISTORY PHYSICAL HNO ID: [id number] Author: Rachelle Herrera Service: ? Author Type: Nurse Practitioner Type: HANDP Filed: 08/27/2020 12:18 PM Note Text: HISTORY AND PHYSICAL EXAMINATION SERVICE DATE: 08/27/2020 SERVICE TIME: 11:34 AM PRIMARY CARE PHYSICIAN: Americo Borrego MD The patient has the following: ACTIVE PROBLEM LIST Depression Asthma Morbid Obesity ([facility]) Gerd (Gastroesophageal Reflux Disease) Benign Prostatic Hyperplasia History of Smoking Cervical Disc Displacement Hyperlipidemia Fatty Liver Cholecystitis Chronic H. Pylori Infection Unspecified Gastritis and Gastroduodenitis Without Mention of Hemorrhage Duodenitis Without Mention of Hemorrhage Blood in Stool DVT of lower extremity (deep venous thrombosis) ([facility]) Rib Fracture Fracture, Femur ([facility]) Calcaneal Spur Lateral Epicondylitis Abdominal Pain, Epigastric Copd (Chronic Obstructive Pulmonary Disease) ([facility]) Diabetes Mellitus Type 2, Controlled, Without Complications ([facility]) Coronary Artery Disease Involving Mechoopda Coronary Artery of [place] Heart Obstructive Sleep Apnea Treated With Bipap Copd With Exacerbation ([facility]) Essential Hypertension Llq Abdominal Pain Diverticulitis Morbid Obesity With Bmi of 45.0-49.9, Adult ([facility]) Post-Op Pain Ileostomy in Place ([facility]) Nicotine use disorder, F17.2 Subjective CHIEF [...] Diagnosis Date - CAD (coronary artery disease), morongo coronary artery 2014 No PCI indicated. no industrial education teacher needed - Closed fracture of femur ([facility]) 11/2010 - Depressive disorder, not elsewhere classified - Diabetes mellitus type 2 in obese ([facility]) - DVT of lower extremity (deep venous thrombosis) ([facility]) 11/2010 left - Esophageal reflux - Essential hypertension - CATY (obstructive sleep apnea) CPAP needs another sleep study machine set too high - Pelvic fracture ([facility]) - Seasonal allergic rhinitis - Unspecified asthma(493.90) Diagnosed in 20s. PAST SURGICAL HISTORY Procedure Laterality Date - COLONOSCOP W/ OR W/O [facility] SPEC 11/04/10 Normal colon - COLONOSCOP W/ OR W/O BRS SPEC 01/21/16 few diverticula - EGD W/O [facility] SPECIMEN W/BX 11/04/10 duodenitis - EGD W/O [...] albuterol for rescue CAD -no stents no industrial education teacher Diabetes -last A1c 7.1 uses insulin Invokana [...] Tests/Procedures Have Been Initiated: C-19 ordered in [facility] by surgeon CONSULTS: No Consults Pending Planned Anesthetic: General Instructions Given to Patient: Patient given verbal and written preop instructions and voices comprehension/compli ance. This note has been produced using [employer] speech recognition software and may contain errors to the system including grammar, punctuation, spelling, gender and words and phrases that may be inappropriate. SIGNATURE: Rachelle Herrera APRN.GISSELL PATIENT NAME: Eliel Souza DATE: August 27, 2020 TIME: 11:34 AM PAGER/CONTACT #: [facility] Javy 08-18-2020 [facility] Telephone (UROLAE) GONZALOELIEL CRAWLEY ([id number]) 1970 M Date Time Provider Department 08/18/20 [...] without c*07/05/2014 More... Coronary artery disease involving morongo ragland*07/05/2014 More... Obstructive sleep apnea treated with [...] Encounter Status:Closed by MARIE RUSH on 08/19/20 [facility] HOSPon 08-15-2020 HOSP Patient:Olman Souza jase Joseph [...] List: Depression [F32.9] Asthma [J45.909] Morbid obesity ([facility]) [E66.01] GERD (gastroesophageal reflux disease) [K21.9] Benign prostatic hyperplasia [N40.0] History of smoking [Z87.891] Cervical disc displacement [M50.20] Hyperlipidemia [E78.5] Fatty liver [K76.0] Cholecystitis chronic [] H. pylori infection [A04.8] Unspecified gastritis and gastroduodenitis without mention of hemorrhage [K29.70, K29.90] Duodenitis without mention of hemorrhage [K29.80] Blood in stool [K92.1] DVT of lower extremity (deep venous thrombosis) ([facility]) [I82.409] Rib fracture [S22.39XA] Fracture, femur ([facility]) [S72.90XA] Calcaneal spur [M77.30] Lateral epicondylitis [M77.10] Abdominal pain, epigastric [R10.13] COPD (chronic obstructive pulmonary disease) ([facility]) [J44.9] Diabetes mellitus type 2, controlled, without complications ([facility]) [E11.9] Coronary artery disease involving morongo coronary artery of morongo heart [I25.10] Obstructive sleep apnea treated with BiPAP [G47.33] COPD with exacerbation ([facility]) [J44.1] Essential hypertension [I10] LLQ abdominal pain [R10.32] Diverticulitis [K57.92] Morbid obesity with BMI of 45.0-49.9, adult ([facility]) [E66.01, Z68.42] Post-op pain [G89.18] Ileostomy in place ([facility]) [Z93.2] Nicotine use disorder, F17.2 [F17.200] Allergies: [...] test with Dr. Saha Normal [facility] CNOVon 07-23-2020 CNOV Office Visit (AKURFL) ELIEL SOUZA ([id number]) 1970 M Date Time Provider Department 07/23/20 1:45 PM REKHA BROWN During your visit today, we recorded the following information about you: Blood pressure Weight Height 122/80 149.7 kg 1.803 m Rekha Brown DO, MBA 07/23/2020 3:42 PM Signed ?? [facility] LOCATION: [address] [place] [address] NEW PATIENT HISTORY AND PHYSICAL EXAM PATIENT [...] 72.8 Lymph% (%) Date Value 12/15/2015 20.8 Moody% (%) Date Value 12/15/2015 4.5 Eosin% (%) Date Value 12/15/2015 1.4 Baso% (%) Date Value 12/15/2015 0.5 Abs Neut (ANC) (k/uL) Date Value 12/15/2015 8.33 (H) Abs Moody (k/uL) Date Value 12/15/2015 0.52 Abs Eosin [...] 11/10/2019 5.0 4.5 - 8.0 Final Specific [place], Ur Date Value Ref Range Status 11/10/2019 [...] Diagnosis Date - CAD (coronary artery disease), morongo coronary artery 2014 No PCI indicated. - Closed fracture of femur ([facility]) 11/2010 - Depressive disorder, not elsewhere classified - Diabetes mellitus type 2 in obese ([facility]) - DVT of lower extremity (deep venous thrombosis) ([facility]) 11/2010 - Esophageal reflux - Essential hypertension - CATY (obstructive sleep apnea) - Pelvic fracture ([facility]) - Seasonal allergic rhinitis - Unspecified asthma(493.90) [...] specific antigen) [Z12.5] Order(s):UA DIP, URINE (POC) [6191610] Order #: [id number]. #:[id number] PSA/PROSTSPECAG SCRN [SQPSAS1] Order #: [id number] FUTURE Prescriptions as of 07/23/2020 Sig: LISINOPRIL [...] without c*07/05/2014 More... Coronary artery disease involving morongo ragland*07/05/2014 More... Obstructive sleep apnea treated with [...] Encounter Status:Closed by REKHA BROWN on 07/23/20 [facility] PROGRESSon 07-23-2020 PROGRESS HNO ID: [id number] Author: Rekha Brown Service: ? Author Type: Physician Type: Progress Notes Filed: 07/23/2020 3:42 PM Note Text: ?? [facility] LOCATION: [address] [place] [address] NEW PATIENT HISTORY AND PHYSICAL EXAM PATIENT [...] 72.8 Lymph% (%) Date Value 12/15/2015 20.8 Moody% (%) Date Value 12/15/2015 4.5 Eosin% (%) Date Value 12/15/2015 1.4 Baso% (%) Date Value 12/15/2015 0.5 Abs Neut (ANC) (k/uL) Date Value 12/15/2015 8.33 (H) Abs Moody (k/uL) Date Value 12/15/2015 0.52 Abs Eosin [...] 11/10/2019 5.0 4.5 - 8.0 Final Specific [place], Ur Date Value Ref Range Status 11/10/2019 [...] Diagnosis Date - CAD (coronary artery disease), morongo coronary artery 2015 No PCI indicated. - Closed fracture of femur ([facility]) 11/2010 - Depressive disorder, not elsewhere classified - Diabetes mellitus type 2 in obese ([facility]) - DVT of lower extremity (deep venous thrombosis) ([facility]) 11/2010 - Esophageal reflux - Essential hypertension - CATY (obstructive sleep apnea) - Pelvic fracture ([facility]) - Seasonal allergic rhinitis - Unspecified asthma(493.90) Diagnosed in 20s. PAST SURGICAL HISTORY Procedure Laterality Date - COLONOSCOP W/ OR W/O [facility] SPEC 11/04/10 Normal colon - COLONOSCOP W/ OR W/O [facility] SPEC 01/21/16 few diverticula - EGD W/O [facility] SPECIMEN W/BX 11/04/10 duodenitis - EGD W/O [facility] SPECIMEN W/BX 01/21/16 minimal gastritis - EXC [...] 07/23/2020 Time: 3:37 PM Normal [facility] Vital Signs Date Time Vital Sign Value Performing Clinician Facility 07-06-2025 18:04-0400 Body temperature 97.9 [degF] Dr. Americo Borrego MD Work Phone: [facility] 07-06-2025 18:04-0400 Diastolic blood pressure 74 mm[Hg] Dr. Americo Borrego MD Work Phone: [facility] 07-06-2025 18:04-0400 Heart rate 76 /min Dr. Americo Borrego MD Work Phone: [facility] 07-06-2025 18:04-0400 Respiratory rate 19 /min Dr. Americo Borrego MD Work Phone: 7(107)949-588725 [place] [address] 07-06-2025 18:04-0400 SaO2% (BldA) [Mass fraction] 98 % Dr. Americo Borrego MD Work Phone: 0(380)941-030454 [place] [address] 07-06-2025 18:04-0400 Systolic blood pressure 135 mm[Hg] Dr. Americo Borrego MD Work Phone: 3(857)193-833854 [place] [address] 07-06-2025 15:02-0400 Body height 177.[address] Americo Borrego MD Work Phone: 8(989)009-516354 [place] [address] 07-06-2025 15:02-0400 Body mass index (BMI) [Ratio] 40.1 kg/m2 Dr. Americo Borrego MD Work Phone: 4(508)389-149967 [address] 07-06-2025 15:02-0400 Body weight [address] Americo Borrego MD Work Phone: [facility] 04-12-2025 11:30-0400 Body mass index (BMI) [Ratio] 38.77 kg/m2 Americo Borrego MD Work Phone: [facility] 04-12-2025 11:30-0400 Body weight 126.1 kg Americo Borrego MD Work Phone: [facility] 04-12-2025 11:30-0400 Diastolic blood pressure 72 mm[Hg] Americo Borrego MD Work Phone: [facility] 04-12-2025 11:30-0400 Heart rate 76 /min Americo Borrego MD Work Phone: [facility] 04-12-2025 11:30-0400 Respiratory rate 18 /min Americo Borrego MD Work Phone: [facility] 04-12-2025 11:30-0400 SaO2% (BldA) [Mass fraction] 96 % Americo Borrego MD Work Phone: [facility] 04-12-2025 11:30-0400 Systolic blood pressure 124 mm[Hg] Americo Borrego MD Work Phone: [facility] 01-08-2025 10:59-0400 Body mass index (BMI) [Ratio] 38.04 kg/m2 Americo Borrego MD Work Phone: [facility] 01-08-2025 10:59-0400 Body weight 123.7 kg Americo Borrego MD Work Phone: [facility] 01-08-2025 10:59-0400 Diastolic blood pressure 80 mm[Hg] Americo Borrego MD Work Phone: [facility] 01-08-2025 10:59-0400 Heart rate 76 /min mAerico Borrego MD Work Phone: [facility] 01-08-2025 10:59-0400 Respiratory rate 18 /min Americo Borrego MD Work Phone: [facility] 01-08-2025 10:59-0400 Systolic blood pressure 126 mm[Hg] Americo Borrego MD Work Phone: [facility] 08-24-2024 10:34-0500 Body mass index (BMI) [Ratio] 38.9 kg/m2 Americo Borrego MD Work Phone: [facility] 08-24-2024 10:34-0500 Body weight 126.5 kg Americo Borrego MD Work Phone: [facility] 08-24-2024 10:34-0500 Diastolic blood pressure 70 mm[Hg] Americo Borrego MD Work Phone: [facility] 08-24-2024 10:34-0500 Heart rate 68 /min Americo Borrego MD Work Phone: [facility] 08-24-2024 10:34-0500 Respiratory rate 18 /min Americo Borrego MD Work Phone: [facility] 08-24-2024 10:34-0500 SaO2% (BldA) [Mass fraction] 97 % Americo Borrego MD Work Phone: [facility] 08-24-2024 10:34-0500 Systolic blood pressure 110 mm[Hg] Americo Borrego MD Work Phone: [facility] 05-22-2024 09:32-0400 Body mass index (BMI) [Ratio] 38.56 kg/m2 Americo Borrego MD Work Phone: [facility] 05-22-2024 09:32-0400 Body temperature 97.39 [degF] Americo Borrego MD Work Phone: [facility] 05-22-2024 09:32-0400 Body weight 125.4 kg Americo Borrego MD Work Phone: [facility] 05-22-2024 09:32-0400 Diastolic blood pressure 62 mm[Hg] Americo Borrego MD Work Phone: [facility] 05-22-2024 09:32-0400 Heart rate 82 /min Americo Borrego MD Work Phone: [facility] 05-22-2024 09:32-0400 Respiratory rate 18 /min Americo Borrego MD Work Phone: [facility] 05-22-2024 09:32-0400 Systolic blood pressure 104 mm[Hg] Americo Borrego MD Work Phone: [facility] 05-14-2024 14:09-0400 Body mass index (BMI) [Ratio] 38.59 kg/m2 Matilde Moomaw SLOTTER OPERATOR HELPER.GROUP WORK PROGRAM DIRECTOR Work Phone: [facility] 05-14-2024 14:09-0400 Body temperature 97.5 [degF] Matilde Moomaw SLOTTER OPERATOR HELPER.GROUP WORK PROGRAM DIRECTOR Work Phone: [facility] 05-14-2024 14:09-0400 Body weight 125.5 kg Matilde Moomaw SLOTTER OPERATOR HELPER.GROUP WORK PROGRAM DIRECTOR Work Phone: [facility] 05-14-2024 14:09-0400 Diastolic blood pressure 74 mm[Hg] Matilde Moomaw SLOTTER OPERATOR HELPER.GROUP WORK PROGRAM DIRECTOR Work Phone: [facility] 05-14-2024 14:09-0400 Heart rate 95 /min Matilde Moomaw SLOTTER OPERATOR HELPER.GROUP WORK PROGRAM DIRECTOR Work Phone: [facility] 05-14-2024 14:09-0400 Respiratory rate 21 /min Matilde Moomaw SLOTTER OPERATOR HELPER.GROUP WORK PROGRAM DIRECTOR Work Phone: [facility] 05-14-2024 14:09-0400 SaO2% (BldA) [Mass fraction] 97 % Matilde Moomaw SLOTTER OPERATOR HELPER.GROUP WORK PROGRAM DIRECTOR Work Phone: [facility] 05-14-2024 14:09-0400 Systolic blood pressure 108 mm[Hg] Matilde Moomaw SLOTTER OPERATOR HELPER.GROUP WORK PROGRAM DIRECTOR Work Phone: [facility] 02-20-2024 12:46-0400 Body mass index (BMI) [Ratio] 40.61 kg/m2 Americo Borrego MD Work Phone: [facility] 02-20-2024 12:46-0400 Body weight 132.09 kg Americo Borrego MD Work Phone: [facility] 02-20-2024 12:46-0400 Diastolic blood pressure 74 mm[Hg] Americo Borrego MD Work Phone: [facility] 02-20-2024 12:46-0400 Heart rate 76 /min Americo Borrego MD Work Phone: [facility] 02-20-2024 12:46-0400 Respiratory rate 18 /min Americo Borrego MD Work Phone: [facility] 02-20-2024 12:46-0400 Systolic blood pressure 110 mm[Hg] Americo Borrego MD Work Phone: [facility] 01-29-2024 03:17-0400 Respiratory rate 17 /min [facility] 01-29-2024 03:17-0400 SaO2% (BldA) [Mass fraction] 99 % [facility] 01-29-2024 03:16-0400 Body temperature 97.4 [degF] [facility] 01-29-2024 03:16-0400 Diastolic blood pressure 65 mm[Hg] [facility] 01-29-2024 03:16-0400 Heart rate 82 /min [facility] 01-29-2024 03:16-0400 Systolic blood pressure 117 mm[Hg] [facility] 01-29-2024 00:03-0400 Body height 180.34 cm [facility] 01-29-2024 00:03-0400 Body mass index (BMI) [Ratio] 42.9 kg/m2 [facility] 01-29-2024 00:03-0400 Body weight 139.6 kg [facility] 11-26-2023 11:15-0500 Body temperature 97.59 [degF] Emil Luo MD Work Phone: [facility] 11-26-2023 11:15-0500 Body weight 134.45 kg Emil Luo MD Work Phone: [facility] 11-26-2023 11:15-0500 Diastolic blood pressure 90 mm[Hg] Emil Luo MD Work Phone: [facility] 11-26-2023 11:15-0500 Heart rate 94 /min Emil Luo MD Work Phone: [facility] 11-26-2023 11:15-0500 Respiratory rate 22 /min Emil Luo MD Work Phone: [facility] 11-26-2023 11:15-0500 SaO2% (BldA) [Mass fraction] 97 % Emil Luo MD Work Phone: [facility] 11-26-2023 11:15-0500 Systolic blood pressure 120 mm[Hg] Emil Luo MD Work Phone: [facility] 09-21-2023 15:52-0500 Body temperature 97.39 [degF] Chen Souza APRN.CNP Work Phone: [facility] 09-21-2023 15:52-0500 Body weight 134.63 kg Chen Souza SLOTTER OPERATOR HELPER.GROUP WORK PROGRAM DIRECTOR Work Phone: [facility] 09-21-2023 15:52-0500 Diastolic blood pressure 90 mm[Hg] Chen Harley SLOTTER OPERATOR HELPER.GROUP WORK PROGRAM DIRECTOR Work Phone: [facility] 09-21-2023 15:52-0500 Heart rate 89 /min Chen Souza SLOTTER OPERATOR HELPER.GROUP WORK PROGRAM DIRECTOR Work Phone: [facility] 09-21-2023 15:52-0500 Respiratory rate 26 /min Chen Souza SLOTTER OPERATOR HELPER.GROUP WORK PROGRAM DIRECTOR Work Phone: [facility] 09-21-2023 15:52-0500 SaO2% (BldA) [Mass fraction] 96 % Chen Souza SLOTTER OPERATOR HELPER.GROUP WORK PROGRAM DIRECTOR Work Phone: [facility] 09-21-2023 15:52-0500 Systolic blood pressure 139 mm[Hg] Chen Souza SLOTTER OPERATOR HELPER.GROUP WORK PROGRAM DIRECTOR Work Phone: [facility] 06-29-2023 13:52-0400 Body weight 137.89 kg Malika Sethi SLOTTER OPERATOR HELPER.GROUP WORK PROGRAM DIRECTOR Work Phone: [facility] 06-29-2023 13:52-0400 Diastolic blood pressure 70 mm[Hg] Malika Romerof SLOTTER OPERATOR HELPER.GROUP WORK PROGRAM DIRECTOR Work Phone: [facility] 06-29-2023 13:52-0400 Heart rate 80 /min Malika Romerof SLOTTER OPERATOR HELPER.GROUP WORK PROGRAM DIRECTOR Work Phone: [facility] 06-29-2023 13:52-0400 Respiratory rate 16 /min Malika Meadowshof SLOTTER OPERATOR HELPER.GROUP WORK PROGRAM DIRECTOR Work Phone: [facility] 06-29-2023 13:52-0400 SaO2% (BldA) [Mass fraction] 97 % Malika Romerof SLOTTER OPERATOR HELPER.GROUP WORK PROGRAM DIRECTOR Work Phone: [facility] 06-29-2023 13:52-0400 Systolic blood pressure 110 mm[Hg] Malika Meaodwshof SLOTTER OPERATOR HELPER.GROUP WORK PROGRAM DIRECTOR Work Phone: [facility] 12-06-2022 15:01-0500 Diastolic blood pressure 78 mm[Hg] [facility] 12-06-2022 15:01-0500 Heart rate 81 /min [facility] 12-06-2022 15:01-0500 Respiratory rate 16 /min [facility] 12-06-2022 15:01-0500 SaO2% (BldA) [Mass fraction] 98 % [facility] 12-06-2022 15:01-0500 Systolic blood pressure 135 mm[Hg] [facility] 12-06-2022 11:19-0500 Body height 180.34 cm [facility] 12-06-2022 11:19-0500 Body mass index (BMI) [Ratio] 40.1 kg/m2 [facility] 12-06-2022 11:19-0500 Body temperature 97.4 [degF] [facility] 12-06-2022 11:19-0500 Body weight 130.4 kg [facility] Encounters Encounter Date Encounter Type Care Provider Facility Start: 08-18-2025 End: 08-18-2025 Emergency department patient visit Americo Borrego Facility:[facility] Start: 07-06-2025 End: 07-06-2025 Emergency department patient visit Dr. Melissa Holly DO -Emergency Department Work Phone: Start: 06-13-2025 End: 06-14-2025 Refill Americo Borrego MD Work Phone: [address] [place] [address] Comment on above: Refill Request Start: 04-12-2025 End: 04-12-2025 Office outpatient visit 25 minutes Americo Borrego MD Work Phone: [facility] [place] Comment on above: Type 2 diabetes shashank itus with hyperglycemia, with long-term current use of insulin (HCC) (Primary Dx); Depression, unspecified depression type; Mild asthma without complication, 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 persistent (HCC); Hyperlipidemia, unspecified hyperlipidemia type; Obstructive sleep apnea treated with BiPAP; Essential hypertension Start: 04-12-2025 End: 04-12-2025 ambulatory AMERICO BORREGO Facility:[facility] Start: 04-06-2025 End: 04-06-2025 ambulatory AMERICO BORREGO Facility:[facility] Start: 01-08-2025 End: 01-08-2025 ambulatory [facility] Facility:[facility] Start: 01-08-2025 End: 01-08-2025 Office outpatient visit [...] Start: 12-22-2024 End: 12-22-2024 ambulatory [facility] Start: 12-10-2024 End: 01-24-2025 Telephone encounter Dean Goldberg APRN.CNP Work Phone: Administration Comment on above: Medication Problem ( Med Refills) Start: 09-28-2024 End: 09-28-2024 Refill Americo Borrego MD Work Phone: [facility] Comment on above: Refill Request Start: 09-12-2024 End: 09-12-2024 ambulatory Gem Perez RN [facility] Start: 09-12-2024 End: 09-12-2024 Patient encounter procedure Gem Perez RN [facility] Comment on above: TYLER SCHAEFER RN ( Medication Adherence Review at request of payer) Start: 08-27-2024 End: 08-27-2024 Telephone encounter Americo Borrego MD Work Phone: [facility] Comment on above: Medication Problem Start: 08-24-2024 End: 08-24-2024 ambulatory [facility] Facility:[facility] Start: 08-24-2024 End: 08-24-2024 Patient encounter procedure [...] 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 persistent; 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 Start: 08-11-2024 End: 08-11-2024 ambulatory [facility] Facility:[facility] Start: 06-06-2024 End: 06-06-2024 Refill Americo Borrego MD Work Phone: [facility] Comment on above: Refill Request Start: 05-22-2024 End: 05-22-2024 ambulatory [facility] Facility:[facility] Start: 05-22-2024 End: 05-22-2024 Patient encounter procedure Americo Borrego MD Work Phone: [facility] [place] Comment on above: Hospital discharge f [...] behavioral disorders Start: 05-14-2024 End: 05-14-2024 ambulatory [facility] Facility:[facility] Start: 05-14-2024 End: 05-14-2024 Patient encounter procedure Matilde Gan APRN.CNP Work Phone: [facility] Comment on above: Left lower quadrant abdominal pain (Primary Dx) Start: 05-09-2024 End: 05-09-2024 ambulatory AMERICO B[facility]REGO Facility:[facility] Start: 03-23-2024 Refill Americo walls MD Work Phone: [facility] Comment on above: Refill Request Start: 02-29-2024 Telephone encounter Margarita Moctezuma patti [facility] Work Phone: [facility] Comment on above: Appointment Start: 02-21-2024 Telephone encounter Kandace Bello send [facility] Comment on above: NEW PRIMARY CARE PHA RMACY APPT Start: 02-20-2024 End: 02-20-2024 Patient encounter procedure Americo Borrego MD Work Phone: [facility] Comment on above: Type 2 diabetes [...] 01-29-2024 End: 01-29-2024 Emergency department patient visit [facility] Work Phone: Start: 01-25-2024 Refill Americo walls MD Work Phone: [facility] Comment on above: Refill Request Start: 11-30-2023 Refill Americo walls MD Work Phone: [facility] Comment on above: Refill Request Start: 11-26-2023 End: 11-26-2023 Patient encounter procedure Emil Luo MD Work Phone: [facility] Comment on above: Asthma with COPD wit h exacerbation (HCC) (HCC) (Primary Dx) Refill Request Start: 11-21-2023 Telephone encounter Americo springer MD Work Phone: [facility] [place] Comment on above: Excuse from Jury Dut y- Letter Start: 09-21-2023 End: 09-21-2023 Subsequent hospital visit by physician Devora [facility] [place] Work Phone: Radiology Comment on above: SOB (shortness of br eath) [R06.02] Start: 09-21-2023 End: 09-21-2023 Patient encounter procedure Chen Souza APRN.GROUP WORK PROGRAM DIRECTOR Work Phone: [facility] Comment on above: SOB (shortness of br eath) (Primary Dx); COPD with exacerbation (HCC) Start: 08-24-2023 Telephone encounter Americo springer MD Work Phone: [facility] Comment on above: chest cold Refill Request Start: 06-29-2023 End: 06-29-2023 Patient encounter procedure Malika Sethi APRN.GROUP WORK PROGRAM DIRECTOR Work Phone: [facility] Comment on above: Type 2 diabetes shashank itus without complication, 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 [employer] insulin use (HCC) (Primary Dx); Essential hypertension; Hyperlipidemia, unspecified hyperlipidemia type; Depression, unspecified depression type; FAISAL (generalized anxiety disorder); Chronic obstructive pulmonary disease, unspecified COPD type (HCC); Gastroesophageal reflux disease, 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 esophagitis present; Obstructive sleep apnea treated with BiPAP; Encounter for screening for lung cancer Start: 06-24-2023 Refill Americo walls MD Work Phone: [facility] [place] Comment on above: Refill Request Start: 06-16-2023 Telephone encounter Americo springer MD Work Phone: [facility] Comment on above: Medication Problem Start: 04-25-2023 Refill Americo walls MD Work Phone: [facility] Comment on above: Refill Request Start: 12-25-2022 Refill Americo walls MD Work Phone: [facility] Comment on above: Refill Request Start: 12-06-2022 End: 12-06-2022 Emergency department patient visit [facility] Start: 11-26-2022 Refill Dean RIVERA RN.GROUP WORK PROGRAM DIRECTOR Work Phone: [facility] Comment on above: Refill Request Start: 07-09-2022 Refill Americo walls MD Work Phone: [facility] Comment on above: Refill Request; Refi ll Request Start: 07-04-2022 Refill Dean RIVERA RN.GROUP WORK PROGRAM DIRECTOR Work Phone: [facility] Comment on above: Refill Request Start: 06-30-2022 Telephone encounter Americo springer MD Work Phone: [facility] Comment on above: Insurance Authorizat ion ([employer] HFA) Start: 06-28-2022 Telephone encounter Americo springer MD Work Phone: [facility] Comment on above: Rx refill; not on cu rrent med list Start: 06-02-2022 Telephone encounter Americo springer MD Work Phone: [facility] Comment on above: Patient Update (Plea se fill his inhaler as soon as possible, ); Patient Question Start: 01-07-2022 End: 01-07-2022 ambulatory Americo Borrego MD Work Phone: [facility] Comment on above: Chronic obstructive pulmonary disease with acute exacerbation (HCC) (Primary Dx) Start: 01-07-2022 End: 01-07-2022 Telemedicine consultation with patient Americo Borrego MD Work Phone: [facility] Start: 01-04-2022 Telephone encounter Americo springer MD Work Phone: [facility] Comment on above: Question Procedures Date Procedure Procedure Detail Performing Clinician Start: 07-06-2025 Radiologic exam ches t [address] Americo Borrego MD Work Phone: Start: 01-29-2024 SARS-CoV-2, Influenz a & RSV (PCR) Start: 01-29-2024 Plain chest X-ray Start: 09-21-2023 Radiologic exam ches t 2 views Chen Harley SLOTTER OPERATOR HELPER.GROUP WORK PROGRAM DIRECTOR Work Phone: Start: 11-02-2019 Colonoscopy Americo pulido MD Work Phone: H/O: ileostomy History of ileostomy Americo Borrego MD Work Phone: H/O: ileostomy History of ileostomy Americo Borrego MD Work Phone: H/O: ileostomy History of ileostomy Americo Borrego MD Work Phone: Plan of Treatment Date Care Activity Detail Author Start: 05-16-2031 Urine microalbumin profile [facility] Start: 11-02-2029 Colonoscopy COLONOSCOPY [facility] Start: 11-02-2029 COLORECTAL CANCER SCREENING COLORECTAL CANCER SCREENING [facility] Start: 11-02-2029 Screening for malignant neoplasm of colon [facility] Start: 04-12-2026 Annual PCP Team Chronic Disease Visit Annual PCP Team Chronic Disease Visit [facility] Start: 04-12-2026 Pneumococcal Vaccine: 50+ (2 of 2 - PCV) Pneumococcal Vaccine: 50+ (2 of 2 - PCV) [facility] Comment on above: Postponed from 11/13/2020 (Declined at t his time) Start: 04-06-2026 Hepatitis B surface antibody level LDL Cholesterol [facility] Start: 02-09-2026 Prostate Cancer Screening Discussion Prostate Cancer Screening Discussion [facility] Start: 02-09-2026 Prostate specific antigen measurement Prostate Cancer Screening Discussion [facility] Start: 01-08-2026 Annual PCP Team Chronic Disease Visit Annual PCP Team Chronic Disease Visit [facility] Start: 12-22-2025 Hepatitis B surface antibody level LDL Cholesterol [facility] Start: 12-16-2025 End: 12-16-2025 Patient encounter procedure 12/16/2025 4:20 PM EST Office Visit [facility] [address] [place] [place] [id number] Danielle Cedillo MD [address] [place] [place] [id number] 6 month f/u [facility] Comment on above: 6 month f/u Start: 10-24-2025 Glaucoma screening Dilated Retinal Exam [facility] Start: 10-06-2025 Hemoglobin A1c measurement HbA1C [facility] Start: 08-24-2025 Annual PCP Team Chronic Disease Visit Annual PCP Team Chronic Disease Visit [facility] Start: 08-24-2025 BP Controlled (<130/80) BP Controlled (<130/80) [facility] Start: 08-24-2025 Covid-19 Vaccine () Covid-19 Vaccine () [facility] Comment on above: Postponed from 06/17/2024 (Declined at t his time) Start: 07-16-2025 End: 07-16-2025 Patient encounter procedure 07/16/2025 11:00 AM EDT Office Visit [facility] [address] [place] [address] Americo Borrego MD [address] [place] [address] 3 month follow up [facility] Comment on above: 3 month follow up Start: 07-13-2025 End: 10-12-2025 Comprehensive metabolic 2000 panel - Serum or Plasma COMPREHENSIVE METABOLIC PANEL Lab Routine Hyperlipidemia, unspecified hyperlipidemia type Type 2 diabetes mellitus with hyperglycemia, with long-term current use of insulin (HCC) Essential hypertension Expected: 07/13/2025 (Approximate), Expires: 10/12/2025 [facility] Work Phone: Comment on above: Expected: 07/13/2025 (Approximate), Expi res: 10/12/2025 Start: 07-13-2025 End: 10-12-2025 Hemoglobin A1c in Blood HEMOGLOBIN A1C Lab Routine Type 2 diabetes mellitus with hyperglycemia, with long-term current use of insulin (HCC) Expected: 07/13/2025 (Approximate), Expires: 10/12/2025 [facility] Comment on above: Expected: 07/13/2025 (Approximate), Expi res: 10/12/2025 Start: 07-13-2025 End: 10-12-2025 Lipid 1996 panel - Serum or Plasma LIPID PANEL, FASTING Lab Routine Hyperlipidemia, unspecified hyperlipidemia type Type 2 diabetes mellitus with hyperglycemia, with long-term current use of insulin (HCC) Essential hypertension Expected: 07/13/2025 (Approximate), Expires: 10/12/2025 [facility] Comment on above: Expected: 07/13/2025 (Approximate), Expi res: 10/12/2025 Start: 06-17-2025 Influenza vaccination [facility] Start: 05-22-2025 Annual PCP Team Chronic Disease Visit Annual PCP Team Chronic Disease Visit [facility] Start: 05-22-2025 Anxiety Screening Anxiety Screening [facility] Start: 05-22-2025 BP Controlled (<130/80) BP Controlled (<130/80) [facility] Start: 05-14-2025 BP Controlled (<130/80) BP Controlled (<130/80) [facility] Start: 05-09-2025 Hepatitis B screening Urine Albumin:Creatinine Ratio [facility] Start: 05-09-2025 Hepatitis B surface antibody level LDL Cholesterol [facility] Start: 04-15-2025 [facility] Comment on above: Postponed from 06/17/2024 (Declined at t his time) Start: 04-12-2025 End: 04-12-2025 Patient encounter procedure 04/12/2025 11:40 AM EDT Office Visit Family [facility] [address] [place], [place] [id number] Americo Borrego MD [address] [place], [place] [id number] 3 mo f/u [facility] Comment on above: 3 mo f/u Start: 04-10-2025 End: 07-10-2025 Comprehensive metabolic 2000 panel - Serum or Plasma COMPREHENSIVE METABOLIC PANEL Lab Routine Type 2 diabetes mellitus without complication, 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 [employer] insulin use (HCC) Hyperlipidemia, unspecified hyperlipidemia type Expected: 04/10/2025 (Approximate), Expires: 07/10/2025 [facility] Work Phone: Comment on above: Expected: 04/10/2025 (Approximate), Expi res: 07/10/2025 Start: 04-10-2025 End: 07-10-2025 Hemoglobin A1c in Blood HEMOGLOBIN A1C Lab Routine Type 2 diabetes mellitus without complication, 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 [employer] insulin use (HCC) Expected: 04/10/2025 (Approximate), Expires: 07/10/2025 [facility] Comment on above: Expected: 04/10/2025 (Approximate), Expi res: 07/10/2025 Start: 04-10-2025 End: 07-10-2025 Lipid 1996 panel - Serum or Plasma LIPID PANEL, FASTING Lab Routine Type 2 diabetes mellitus without complication, 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 [employer] insulin use (HCC) Hyperlipidemia, unspecified hyperlipidemia type Expected: 04/10/2025 (Approximate), Expires: 07/10/2025 [facility] Comment on above: Expected: 04/10/2025 (Approximate), Expi res: 07/10/2025 Start: 03-24-2025 Hemoglobin A1c measurement HbA1C [facility] Start: 02-19-2025 Annual PCP Team Chronic Disease Visit Annual PCP Team Chronic Disease Visit [facility] Start: 02-19-2025 BP Controlled (<130/80) BP Controlled (<130/80) [facility] Start: 02-19-2025 Covid-19 Vaccine () Covid-19 Vaccine () [facility] Comment on above: Postponed from 06/17/2023 (Declined at t his time) Start: 01-15-2025 Hepatitis B surface antibody level LDL Cholesterol [facility] Start: 11-29-2024 End: 11-29-2024 Patient encounter procedure 11/29/2024 11:00 AM EST Office Visit [facility] [address] [place] [address] Malika Sethi, SLOTTER OPERATOR HELPER.GROUP WORK PROGRAM DIRECTOR [address] [place] [id number] 3 month follow up Family Medicine [facility] Comment on above: 3 month follow up Start: 11-24-2024 End: 02-23-2025 CBC W Auto Differential panel - Blood COMPLETE BLOOD COUNT AND DIFFERENTIAL Lab Routine Gastroesophageal reflux disease, 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 esophagitis present Hyperlipidemia, unspecified hyperlipidemia type 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 Expected: 11/24/2024 (Approximate), Expires: 02/23/2025 [facility] Comment on above: Expected: 11/24/2024 (Approximate), Expi res: 02/23/2025 Start: 11-24-2024 End: 02-23-2025 Comprehensive metabolic 2000 panel - Serum or Plasma COMPREHENSIVE METABOLIC PANEL Lab Routine Hyperlipidemia, unspecified hyperlipidemia type Type 2 diabetes mellitus with hyperglycemia, with long-term current use of insulin (HCC) Expected: 11/24/2024 (Approximate), Expires: 02/23/2025 [facility] Comment on above: Expected: 11/24/2024 (Approximate), Expi res: 02/23/2025 Start: 11-24-2024 End: 02-23-2025 Hemoglobin A1c in Blood HEMOGLOBIN A1C Lab Routine Type 2 diabetes mellitus with hyperglycemia, with long-term current use of insulin (HCC) Expected: 11/24/2024 (Approximate), Expires: 02/23/2025 [facility] Comment on above: Expected: 11/24/2024 (Approximate), Expi res: 02/23/2025 Start: 11-24-2024 End: 02-23-2025 Lipid 1996 panel - Serum or Plasma LIPID PANEL BASIC Lab Routine Hyperlipidemia, unspecified hyperlipidemia type Expected: 11/24/2024 (Approximate), Expires: 02/23/2025 [facility] Work Phone: Comment on above: Expected: 11/24/2024 (Approximate), Expi res: 02/23/2025 Start: 11-11-2024 Hemoglobin A1c measurement HbA1C [facility] Start: 10-17-2024 Medicare Advantage Annual Wellness Visit Medicare Advantage Annual Wellness Visit [facility] Start: 09-03-2024 End: 09-03-2024 Patient encounter procedure 09/03/2024 1:45 PM EST Office Visit [facility] [address] [place] [id number] Mia Pollack, OD [address] [place] [address] Type 2 diabetes mellitus without complication, 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 [employer] insulin use (HCC) [E11.9] Ophthalmology Comment on above: Type 2 diabetes mellitus without complic ation, 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 [employer] insulin use (HCC) [E11.9] Start: 08-24-2024 End: 08-24-2024 Patient encounter procedure [facility] Comment on above: 3 mo f/u A1c Start: 08-22-2024 End: 11-21-2024 CBC panel - Blood by Automated count COMPLETE BLOOD COUNT Lab Routine Essential hypertension Expected: 08/22/2024 (Approximate), Expires: 11/21/2024 [facility] Comment on above: Expected: 08/22/2024 (Approximate), Expi res: 11/21/2024 Start: 08-22-2024 End: 11-21-2024 Comprehensive metabolic 2000 panel - Serum or Plasma COMPREHENSIVE METABOLIC PANEL Lab Routine Type 2 diabetes mellitus without complication, 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 [employer] insulin use (HCC) Essential hypertension Expected: 08/22/2024 (Approximate), Expires: 11/21/2024 [facility] Comment on above: Expected: 08/22/2024 (Approximate), Expi res: 11/21/2024 Start: 08-22-2024 End: 11-21-2024 Hemoglobin A1c in Blood HEMOGLOBIN A1C Lab Routine Type 2 diabetes mellitus without complication, 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 [employer] insulin use (HCC) Expected: 08/22/2024 (Approximate), Expires: 11/21/2024 [facility] Work Phone: Comment on above: Expected: 08/22/2024 (Approximate), Expi res: 11/21/2024 Start: 08-14-2024 End: 08-14-2024 Patient encounter procedure 08/14/2024 10:00 AM EDT Office Visit [facility] [address] [place] [address] Mia Pollack, OD [address] [place] [address] Type 2 diabetes mellitus without complication, 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 prison insulin use (HCC) [E11.9] Ophthalmology Comment on above: Type 2 diabetes mellitus without complic ation, 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 prison insulin use (HCC) [E11.9] Start: 08-09-2024 Hemoglobin A1c measurement HbA1C [facility] Start: 06-29-2024 Annual PCP Team Chronic Disease Visit Annual PCP Team Chronic Disease Visit [facility] Start: 06-29-2024 BP Controlled (<130/80) BP Controlled (<130/80) [facility] Start: 06-29-2024 Hepatitis B Vaccine (1 of 3 - 19+ 3-dose series) Hepatitis B Vaccine (1 of 3 - 19+ 3-dose series) [facility] Comment on above: Postponed from 1987 (Declined at t his time) Start: 06-29-2024 Hepatitis B Vaccine (1 of 3 - 3-dose series) Hepatitis B Vaccine (1 of 3 - 3-dose series) [facility] Comment on above: Postponed from 1968 (Declined at t his time) Start: 06-29-2024 Shingrix Vaccine (1 of 2) Shingrix Vaccine (1 of 2) [facility] Comment on above: Postponed from 2018 (Declined at t his time) Start: 06-17-2024 Covid-19 Vaccine ( season) Covid-19 Vaccine ( season) [facility] Start: 06-17-2024 Covid-19 Vaccine ( season) Covid-19 Vaccine ( season) [facility] Start: 06-17-2024 Influenza vaccination [facility] Start: 05-22-2024 End: 08-21-2024 Comprehensive metabolic 2000 panel - Serum or Plasma COMPREHENSIVE METABOLIC PANEL Lab Routine Type 2 diabetes mellitus without complication, 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 [employer] insulin use (HCC) Essential hypertension Hyperlipidemia, unspecified hyperlipidemia type Expected: 05/22/2024 (Approximate), Expires: 08/21/2024 [facility] Work Phone: Comment on above: Expected: 05/22/2024 (Approximate), Expi res: 08/21/2024 Start: 05-22-2024 End: 08-21-2024 Hemoglobin A1c in Blood HEMOGLOBIN A1C Lab Routine Type 2 diabetes mellitus without complication, 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 [employer] insulin use (HCC) Expected: 05/22/2024 (Approximate), Expires: 08/21/2024 [facility] Comment on above: Expected: 05/22/2024 (Approximate), Expi res: 08/21/2024 Start: 05-22-2024 End: 08-21-2024 Lipid 1996 panel - Serum or Plasma LIPID PANEL BASIC Lab Routine Type 2 diabetes mellitus without complication, 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 [employer] insulin use (HCC) Essential hypertension Hyperlipidemia, unspecified hyperlipidemia type Expected: 05/22/2024 (Approximate), Expires: 08/21/2024 [facility] Comment on above: Expected: 05/22/2024 (Approximate), Expi res: 08/21/2024 Start: 05-22-2024 End: 08-21-2024 Microalbumin/Creatinin e [Mass Ratio] in Urine ALBUMIN/CREATININE RATIO, URINE Lab Routine Type 2 diabetes mellitus without complication, 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 prison insulin use (HCC) Essential hypertension Expected: 05/22/2024 (Approximate), Expires: 08/21/2024 [facility] Comment on above: Expected: 05/22/2024 (Approximate), Expi res: 08/21/2024 Start: 05-22-2024 End: 05-22-2024 Patient encounter procedure Pulmonary Medicine Comment on above: Encounter for screening for lung cancer [Z12.2] 3 mo f/u Start: 05-22-2024 End: 05-22-2024 ambulatory [facility] Comment on above: Encounter for screening for lung cancer [Z12.2] Start: 04-16-2024 Hemoglobin A1c measurement HbA1C [facility] Start: 04-15-2024 Influenza vaccination [facility] Comment on above: Postponed from 06/17/2023 (Declined at t his time) Start: 03-30-2024 Hepatitis B surface antibody level LDL CHOLESTEROL [facility] Start: 03-29-2024 ANNUAL PCP TEAM CHRONIC DISEASE VISIT ANNUAL PCP TEAM CHRONIC DISEASE VISIT [facility] Start: 03-29-2024 COVID-19 VACCINE (#1) COVID-19 VACCINE (#1) [facility] Comment on above: Postponed from 1968 (Declined at t his time) Start: 02-22-2024 End: 02-22-2024 ambulatory 02/22/2024 9:45 AM EDT Procedure [facility] [address] [place] [address] Wstr, Pulm Lab [facility] [address] [place] [address] Chronic obstructive pulmonary disease, unspecified COPD type (HCC) [J44.9] [facility] Comment on above: Chronic obstructive pulmonary disease, u nspecified COPD type (HCC) [J44.9] Start: 01-29-2024 [facility] Start: 12-23-2023 Hemoglobin A1c measurement HbA1C [facility] Start: 09-28-2023 End: 11-28-2023 Comprehensive metabolic 2000 panel - Serum or Plasma COMP METABOLIC PANEL Lab Routine Type 2 diabetes mellitus without complication, 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 prison insulin use (HCC) Expected: 09/28/2023, Expires: 11/28/2023 [facility] Work Phone: Comment on above: Expected: 09/28/2023, Expires: Start: 09-28-2023 End: 11-28-2023 Hemoglobin A1c in Blood HGB A1C Lab Routine Type 2 diabetes mellitus without complication, 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 prison insulin use (HCC) Expected: 09/28/2023, Expires: 11/28/2023 [facility] Work Phone: Comment on above: Expected: 09/28/2023, Expires: Start: 09-22-2023 Hemoglobin A1c/Hemoglobin.total in Blood HBA1C [facility] Start: 06-30-2023 Hemoglobin A1c/Hemoglobin.total in Blood HBA1C [facility] Start: 06-17-2023 Covid-19 Vaccine ( season) Covid-19 Vaccine () [facility] Start: 06-17-2023 Influenza vaccination INFLUENZA (#1) [facility] Start: 01-07-2023 ANNUAL PCP TEAM CHRONIC DISEASE VISIT ANNUAL PCP TEAM CHRONIC DISEASE VISIT [facility] Start: 12-25-2022 End: 02-24-2023 CBC panel - Blood by Automated count CBC Lab Routine Essential hypertension Expected: 12/25/2022 (Approximate), Expires: 02/24/2023 [facility] Work Phone: Comment on above: Expected: 12/25/2022 (Approximate), Expi res: 02/24/2023 Start: 12-25-2022 End: 02-24-2023 Comprehensive metabolic 2000 panel - Serum or Plasma COMP METABOLIC PANEL Lab Routine Hyperlipidemia, unspecified hyperlipidemia type Controlled type 2 diabetes mellitus without complication, with long-term current use of insulin (HCC) Essential hypertension Expected: 12/25/2022 (Approximate), Expires: 02/24/2023 [facility] Work Phone: Comment on above: Expected: 12/25/2022 (Approximate), Expi res: 02/24/2023 Start: 12-25-2022 End: 02-24-2023 Hemoglobin A1c in Blood HGB A1C Lab Routine Controlled type 2 diabetes mellitus without complication, with long-term current use of insulin (HCC) Expected: 12/25/2022 (Approximate), Expires: 02/24/2023 [facility] Work Phone: Comment on above: Expected: 12/25/2022 (Approximate), Expi res: 02/24/2023 Start: 12-25-2022 End: 02-24-2023 Lipid 1996 panel - Serum or Plasma LIPID PANEL BASIC Lab Routine Hyperlipidemia, unspecified hyperlipidemia type Controlled type 2 diabetes mellitus without complication, with long-term current use of insulin (HCC) Essential hypertension Expected: 12/25/2022 (Approximate), Expires: 02/24/2023 [facility] Work Phone: Comment on above: Expected: 12/25/2022 (Approximate), Expi res: 02/24/2023 Start: 09-08-2022 Hepatitis B surface antibody level LDL CHOLESTEROL [facility] Start: 06-17-2022 Influenza vaccination INFLUENZA (#1) [facility] Start: 04-15-2022 Influenza vaccination INFLUENZA (#1) [facility] Comment on above: Postponed from 06/17/2021 (Declined at t his time) Start: 04-06-2022 Glaucoma screening Dilated Retinal Exam [facility] Start: 04-06-2022 Hepatitis C antibody, confirmatory test DILATED RETINAL EXAM [facility] Start: 12-09-2021 Hemoglobin A1c/Hemoglobin.total in Blood HBA1C [facility] Start: 11-13-2020 PNEUMOCOCCAL (2 - PCV) PNEUMOCOCCAL (2 - PCV) [facility] Start: 01-28-2021 Pneumococcal vaccination [facility] Start: 11-13-2020 Pneumococcal Vaccine: 50+ (2 of 2 - PCV) Pneumococcal Vaccine: 50+ (2 of 2 - PCV) [facility] Start: 07-29-2019 Hepatitis B screening URINE ALBUMIN:CREATININE RATIO [facility] Start: 2018 Influenza vaccination LUNG CANCER SCREENING [facility] Start: 2018 Screening for malignant neoplasm of lung Lung Cancer Screening [facility] Start: 2018 SHINGRIX VACCINE (1 of 2) SHINGRIX VACCINE (1 of 2) [facility] Start: 12-05-2015 3 comp foot exam completed DIABETIC FOOT EXAM [facility] Start: 12-05-2015 Diabetic foot examination Diabetic Foot Exam [facility] Start: 06-28-2014 FECAL OCCULT BLOOD FECAL OCCULT BLOOD [facility] Start: 06-28-2014 Screening for malignant neoplasm of colon Fecal Occult Blood [facility] Start: 2013 COLOGUARD (FIT-DNA) COLOGUARD (FIT-DNA) [facility] Start: [address] COLONOGRAPHY [facility] Start: 2013 Screening for malignant neoplasm of colon [facility] Start: 2013 SIGMOIDOSCOPY SIGMOIDOSCOPY [facility] Start: 1998 Zoledronic acid therapy ALPHA-1 ANTITRYPSIN DEFICIENCY SCREENING [facility] Start: 1987 Hepatitis B Vaccine (1 of 3 - 19+ 3-dose series) Hepatitis B Vaccine (1 of 3 - 19+ 3-dose series) [facility] Start: 1986 Anxiety Screening Anxiety Screening [facility] Start: 1986 BP CONTROLLED (<130/80) BP CONTROLLED (<130/80) [facility] Start: 1973 COVID-19 VACCINE (1) COVID-19 VACCINE (1) [facility] Start: 1968 COVID-19 VACCINE (#1) COVID-19 VACCINE (#1) [facility] Start: 1968 HEPATITIS B (1 of 3 - 3-dose series) HEPATITIS B (1 of 3 - 3-dose series) [facility] COVID & INFLUENZA A/ B & RSV NAAT, ROUTINE COVID & INFLUENZA A/B & RSV NAAT, ROUTINE Microbiology Routine Asthma with COPD with exacerbation (HCC) (HCC) Ordered: 11/26/2023 [facility] Work Phone: Comment on above: Ordered: 11/26/2023 Patient Education [facility] Work Phone: Patient referral [facility] Work Phone: End: 03-21-2025 SPIROMETRY - BASELINE AND POST DILATOR SPIROMETRY - BASELINE AND POST DILATOR PFT Routine Chronic obstructive pulmonary disease, unspecified COPD type (HCC) 1 Occurrences starting 02/20/2024 until 03/21/2025 [facility] Comment on above: 1 Occurrences starting 02/20/2024 until 03/21/2025 [facility] Immunization Date Immunization Notes Care Provider Fa ciliamee 05-16-2021 tetanus toxoid, redu bianca diphtheria toxoid, and acellular pertussis vaccine, adsorbed Americo Borrego MD Work Phone: [facility] Work Phone: 11-13-2019 pneumococcal polysaccharide vaccine, 23 valent Americo Borrego MD Work Phone: [facility] 07-31-2018 influenza virus vacc ine, unspecified formulation Malika Sethi APRN.CNP Work Phone: [facility] 07-30-2011 influenza virus vacc ine, unspecified formulation Americo Borrego MD Work Phone: [facility] Work Phone: 11-23-2010 pneumococcal polysaccharide vaccine, 23 valent Americo Borrego MD Work Phone: [facility] 11-23-2010 pneumococcal vaccine , unspecified formulation [facility] 08-11-2010 influenza virus vacc ine, unspecified formulation Americo Borrego MD Work Phone: [facility] Work Phone: 07-12-2009 influenza virus vacc ine, unspecified formulation Americo Borrego MD Work Phone: [facility] Work Phone: 08-11-2008 influenza virus vacc ine, unspecified formulation Americo Borrego MD Work Phone: [facility] Work Phone: 08-11-2008 pneumococcal polysaccharide vaccine, 23 valent Americo Borrego MD Work Phone: [facility] Work Phone: 05-02-2006 tetanus and diphther ia toxoids, adsorbed, preservative free, for adult use (2 Lf of tetanus toxoid and 2 Lf of diphtheria toxoid) Americo Borrego MD Work Phone: [facility] 10-17-2005 tetanus toxoid, adsorbed Dahlia Borrego MD Work Phone: [facility] Work Phone: Payers Date Payer Category Payer Self-pay [id number] 2025 Unknown [id number] 2025 Private Health Insurance [facility] [id number] 2023 Medicare (Managed Care) [id number] 2023 Unknown [id number] 2022 Medicare [id number] 2022 Medicaid [id number] 2019 Medicaid [employer] [facility] MEDICAID [id number] 2019-Present [phone] [address] [place] [address] Medicaid [id number] 2019 Medicaid [id number] 2016 Unknown [id number] Medicare [id number] Unknown [facility] [id number] Unknown [id number] Unknown [id number] Social History Date Type Detail Facility Start: 05-07-2015 End: 07-06-2025 Tobacco smoking status NHIS Ex-smoker [facility] Start: 1983 End: 04-02-2015 History of tobacco use Current smoker [facility] Start: 1983 End: 04-02-2015 History of tobacco use Cigarette Smoker [facility] Start: 05-07-2015 End: 03-29-2023 Cigarettes smoked current (pack per day) - Reported 1.5 [facility] Start: 05-07-2015 End: 08-24-2024 Tobacco use and exposure User of smokeless tobacco [facility] History of tobacco use Chews Tobacco [facility] Start: 09-09-2021 End: 04-12-2025 Alcohol intake Current non-drinker of alcohol (finding) [facility] Start: 01-07-2022 History SDOH Housing Unable to Pay 3 [facility] Start: 12-08-2015 End: 03-29-2023 Tobacco Comment Both parents smoked in childhood. Lived with smokers as adult. No one in current home currently smokes. [facility] Start: 1970 Sex Assigned At Male C [facility] Start: 12-28-2021 End: 01-07-2022 Exposure to SARS-CoV-2 (event) Not sure [facility] Start: 12-06-2022 End: 01-29-2024 Tobacco smoking status NHIS Unknown if ever smoked [facility] Start: 08-06-2019 Rare [facility] Start: 08-06-2019 None [facility] Start: 08-06-2019 Spouse/ Signif icant Other [facility] Start: 08-06-2019 Non-smoker [facility] Start: 01-07-2022 End: 03-29-2023 Tobacco use panel [facility] Start: 09-17-2012 National Score (1-10 0), lower number is lower risk 47 [facility] Start: 04-30-2020 Gender identity Identifies as male gender (finding) [facility] Start: 04-30-2020 Sexual orientation Heterosexual (fin ding) [facility] Are you now , , , , never or living with a partner? Refused [facility] (I/We) worried venkatesh er (my/our) food would run out before (I/we) got money to buy more. DK or Refused [facility] Medical Equipment Procedure Code Equipment Code Equipment Original Text Equipment Identifier Dates [id number], [id number], [id number], [id number] Start: 06-12-2021 End: 04-12-2025 Comment on above: [...] 11/13/2019 1:30 PM Shun Ceron RN No [facility] 11-13-2019 Are you blind, or do you have serious difficulty seeing, even when wearing glasses No 11/13/2019 1:30 PM Shun Ceron RN No [facility] 11-13-2019 Do you have serious difficulty walking or climbing stairs No 11/13/2019 1:30 PM Shun Ceron RN No [facility] 11-13-2019 Do you have difficul ty dressing or bathing No 11/13/2019 1:30 PM Shun Ceron RN No [facility] 11-13-2019 Because of a physica l, mental, or emotional condition, do you have difficulty doing errands alone such as visiting a physician's office or shopping No 11/13/2019 1:30 PM Shun Ceron RN No [facility] Mental Status Date Assessment Result Facility 11-13-2019 Because of a physica l, mental, or emotional condition, do you have serious difficulty concentrating, remembering, or making decisions No 11/13/2019 1:30 PM Shun Ceron RN No [facility] Clinical Notes 11-12-2019 to 07-06-2025 Note Date & Type Note Facility 07-06-2025 Discharge summary [facility] 07-06-2025 Radiology Diagnostic study note [facility] [address] [place] [id number] Chest PA and Lateral MR#: [id number] Acct: [id number] Name: ELIEL SOUZA Rep #: [id number] : 1970 M 55 From: Ronni Archuleta MD PCP: Dr. Americo Borrego MD Status: RE G ER Study:Chest PA and Lateral Date of Exam: 07/06/25 Exam# [id number] Ordering Dr: Deena Holly DO PROCEDURE: CHEST [...] - Other findings discussed above. Reading Location: [id number] CC: Dr. Melissa Holly DO; Dr. Americo Borrego MD ~ Senior Planning Analyst: Signed [facility] 07-06-2025 Discharge summary Note Date/Time July 06, 2025 6:11pm [facility] Medical Records Department [address] [place] [address] Emergency Department Summary 07/06/25 MR#: [id number] Acct: [id number] Name: ELIEL SOUZA Rep #:[id number] : 1970 55 From: Melissa Ba PCP: [...] complaints or concerns per at this time. [facility] Medical History Diverticulitis Femur fracture Rib fracture H. pylori infection Cholecystitis Fatty liver Depression BPH (benign prostatic hyperplasia) DVT (deep venous thrombosis) GERD (gastroesophageal reflux disease) Diverticula of colon HTN (hypertension) COPD (chronic obstructive pulmonary disease) Diabetes mellitus Home Medications ?Medication ?Instructions ?Recorded ?Last Taken ?Type albuterol sulfate 2.5 mg/3 mL 2.5 mg inhalation Q6H UT N PRN Sob 01/03/16 11/18/16 04:00 History [...] - Other findings discussed above. Reading Location: [id number] Rhythm Strip Rhythm Strip: Sinus Rhythm Rate: [...] Referrals: Americo Borrego MD [Primary Care Provider, [facility]] Activity Restrictions/Additional Instructions: Use your nebulizer every [...] is causing a COPD exacerbation Print Language: Cape Verdean Disposition Disposition: Home, Self Care What to do if you have Problems For any increased pain, shortness of breath, bleeding, nausea or vomiting, chestpain, or any unexpected problems, contact your Primary Care Provider. Call [facility] ([phone]) or report to the closest Emergency Room. Call 911 if necessary. 07/06/25 1811 <Electronically signed by Melissa Holly DO> Cosigner Signature (if applicable): CC: Dr. Americo Borrego MD ~ Signed [facility] Work Phone: [phone]) 616-768308-29-2025 Telephone encounter Note* Telephone Encounter - Americo Borrego MD - 06/14/2025 8:35 AM EDT OK to refill as ordered Americo Borrego MD [facility]08-29-2025 Miscellaneous Notes* Telephone Encounter - Americo Borrego [...] 13, 2025 12:01 PM documented in this encounterMari[facility]08-28-2025 Telephone encounter Note * Telephone Encounter - [...] Franca Sheets June 13, 2025 12:01 PM [facility]2025 History of Present illness Narrative* Americo Borrego [...] tx as needed. Not following with any diagnostic assistant's. Does get Shortness of Breath if he [...] HISTORY Diagnosis Date CAD (coronary artery disease), morongo coronary artery 2014 No PCI indicated. no industrial education teacher needed Closed fracture of femur ([facility]) 11/2010 Depressive disorder, not elsewhere classified Diabetes mellitus type 2 in obese DVT of lower extremity (deep venous thrombosis) ([facility]) 11/2010 left Esophageal reflux Essential hypertension CATY (obstructive sleep apnea) CPAP needs another sleep study machine set too high Pelvic fracture ([facility]) Seasonal allergic rhinitis Unspecified asthma(493.90) Diagnosed in [...] Follow up in 3 months Recording using [employer] software for draft documentation of the visit was discussed with the patient/authorized chain sales representative; all questions welcomed and answered. Patient/authorized chain sales representative agreed to proceed I agree with the Chief Complaint, ROS, and Past Histories independently gathered by the clinical senior support analyst and the remaining scribed note [...] AM. Zulma Gloria MA documented in this encounterMari[facility] Hospital2025 NoteHNO ID: [id number] Author: AMERICO BORREGO MD Service: ? Author [...] tx as needed. Not following with any diagnostic assistant's. Does get Shortness of Breath if he [...] HISTORY Diagnosis Date CAD (coronary artery disease), morongo coronary artery 2014 No PCI indicated. no industrial education teacher needed Closed fracture of femur ([facility]) 11/2010 Depressive disorder, not elsewhere classified Diabetes mellitus type 2 in obese DVT of lower extremity (deep venous thrombosis) ([facility]) 11/2010 left Esophageal reflux Essential hypertension CATY (obstructive sleep apnea) CPAP needs another sleep study machine set too high Pelvic fracture ([facility]) Seasonal allergic rhinitis Unspecified asthma(493.90) Diagnosed in [...] strip Test blood sugar(s) (more content not included)...[facility]03-25-2025 History of Present illness Narrative* Americo Borrego [...] HISTORY Diagnosis Date CAD (coronary artery disease), morongo coronary artery 2014 No PCI indicated. no industrial education teacher needed Closed fracture of femur ([facility]) 11/2010 Depressive disorder, not elsewhere classified Diabetes mellitus type 2 in obese DVT of lower extremity (deep venous thrombosis) ([facility]) 11/2010 left Esophageal reflux Essential hypertension CATY [...] 12/22/2024 2.93 Monocytes % 12/22/2024 6.1 Abs Moody 12/22/2024 0.46 Eosinophils % 12/22/2024 5.3 Abs [...] Moderate Americo Borrego MD documented in this encounterMarietta [facility] Hospital03-25-2025 NoteHNO ID: [id number] Author: AMERICO BORREGO MD Service: ? Author [...] HISTORY Diagnosis Date CAD (coronary artery disease), morongo coronary artery 2014 No PCI indicated. no industrial education teacher needed Closed fracture of femur ([facility]) 11/2010 Depressive disorder, not elsewhere classified Diabetes mellitus type 2 in obese DVT of lower extremity (deep venous thrombosis) ([facility]) 11/2010 left Esophageal reflux Essential hypertension CATY (obstructive sleep apnea) CPAP needs another sleep study machine set too high Pelvic fracture ([facility]) Seasonal allergic rhinitis Unspecified asthma(493.90) Diagnosed in 20s. Previous Surgical History PAST SURGICAL HISTORY Procedure Laterality Date COLONOSCOPY FLX DX W/COLLJ SPEC WHEN PFRMD 11/04/10 Normal colon COLONOSCOPY FLX DX W/COLLJ SPEC WHEN PFRMD 01/21/16 few diverticula EGD TRANSORAL BIOPSY SINGLE/MULTIPLE 11/04/10 duodenitis EGD TRANSORAL BIOPSY SINGLE/MULTIPLE 01/21/16 minimal gastritis EXC TUMOR SUBQ FOREARM[facility] LEFT HEART CATH,PERCUTANEOUS 2013 Cardiac cath, L [...] as needed for (more content not included)... [facility]02-24-2025 Telephone encounter Note* Telephone Encounter - Dean Goldberg APRN.CNP - 12/10/2024 1:37 PM EST Does he need albuterol nebulizer solution or inhaler? What was the name of the third medication that he was requesting? Dean Goldberg APRN.CNP [facility]02-24-2025 Miscellaneous Notes* Telephone Encounter - Dean Goldberg [...] that in his records. documented in this encounterMarietta [facility] Hospital02-24-2025 Telephone encounter Note * Telephone Encounter - Brendon Villareal - 12/10/2024 1:34 PM EST Patient called asking for medication refills. Mentioned Albuterol and Lisinopril. Also mentioned one other but I could not find that in his records. [facility]12-13-2024 Telephone encounter Note* Telephone Encounter - Dean [...] 1/2 hr before meal. Dean Goldberg APRN.CNP [facility]12-13-2024 Miscellaneous Notes* Telephone Encounter - Dean Goldberg [...] 28, 2024 11:43 AM documented in this encounterMarietta [facility] Hospital12-13-2024 Telephone encounter Note * Telephone Encounter - [...] Ashley Sheets September 28, 2024 11:43 AM [facility]11-27-2024 NoteHNO ID: [id number] Author: GEM PEREZ RN Service: ? Author [...] was due for refill on 07/27/24 at [facility] [place] [facility] LISINOPRIL TAB 20MG is due for refill on 09/26/24 at [facility] [place] [facility] Lisinopril refilled 09/28. Call placed to patient on 09/1824 regarding Atorvastatin. Has not been refilled. NALM. Patient Attributed To: QAE Payer: [employer] Action Taken: Data submitted to [employer] message to patient Contact made with patient: No, Chart review only. Signature: Gem Perez RNKing[facility] History of Present illness Narrative* Gem Perez RN - 09/12/2024 9:29 AM EST ACM SILVANO RN Reason for review or outreach: Medication Adherence review per request of payer Medication Adherence Review Details: Cholesterol and Hypertension FYI / ACTION REQUEST: Patient identified by name and date of Summary/Findings of review: ATORVASTATIN TAB 40MG was due for refill on 07/27/24 at [facility] [place] [facility] LISINOPRIL TAB 20MG is due for refill on 09/26/24 at [facility] [place] [facility] Patient Attributed To: QAE Payer: [employer] Action Taken: Data submitted to [employer] message to patient Contact made with patient: No, Chart review only. Signature: Gem Perez RN documented in this encounterMarietta Memorial Hospital11-27-2024 NotePatient Outreach (NETNAV) ELIEL SOUZA ([id number]) 1970 M Date Time Provider Department 09/12/24 [...] was due for refill on 07/27/24 at [facility] [place] [facility] LISINOPRIL TAB 20MG is due for refill on 09/26/24 at [facility] [place] [facility] Lisinopril refilled 09/28. Call placed to patient on 09/1824 regarding Atorvastatin. Has not been refilled. NALM. Patient Attributed To: HANNAH Payer: [employer] Action Taken: Data submitted to [employer] message to patient Contact made with patient: No, Chart review only. Signature: Gem Perez RN Allergies As of Date: 09/12/2024 (No Known Allergies) Date Reviewed: 08/24/2024 Reviewed by: Zulma Gloria MA - Fully Assessed Reason for Visit: ACM SILVANO RN [[id number]] Cmt: Medication Adherence Review at request of [...] with hyperglycemia, wi* Coronary artery disease involving morongo ragland*07/05/2014 Obstructive sleep apnea treated with BiPAP [G47*07/05/2014 COPD with exacerbation (HCC) [J44.1] 02/25/2015 Essential hypertension [I10] 08/07/2015 LLQ abdominal pain [R10.32] (more content not included)...[facility]11-11-2024 Telephone encounter Note* Telephone Encounter - Americo Borrego MD - 08/27/2024 6:11 PM EST Jaylin ordered Americo Borrego MD [facility]11-11-2024 Miscellaneous Notes* Telephone Encounter - Americo Borrego MD - 08/27/2024 6:11 PM EST Jaylin ordered Americo Borrego MD * Telephone Encounter - Mary Jane Wade RN - 08/27/2024 1:25 PM EST Phong, pharmacist @ [facility] calling to let provider know that Levemir has been discontinued. He is asking for new script for alternative. He mentioned Tresiba, Lantus. Please review and advise. Mary Jane Wade RN documented in this encounterMarietta Memorial Hospital11-11-2024 Telephone encounter Note * Telephone Encounter - Mary Jane Wade RN - 08/27/2024 1:25 PM EST Phong, pharmacist @ [facility] calling to let provider know that Levemir has been discontinued. He is asking for new script for alternative. He mentioned Tresiba, Lantus. Please review and advise. Mary Jane Wade RN [facility]11-08-2024 History of Present illness Narrative* Americo Borrego [...] does get some anxiety when [place]. His chest gets a [...] HISTORY Diagnosis Date CAD (coronary artery disease), morongo coronary artery 2014 No PCI indicated. no industrial education teacher needed Closed fracture of femur ([facility]) 11/2010 Depressive disorder, not elsewhere classified Diabetes mellitus type 2 in obese DVT of lower extremity (deep venous thrombosis) ([facility]) 11/2010 left Esophageal reflux Essential hypertension CATY (obstructive sleep apnea) CPAP needs another sleep study machine set too high Pelvic fracture ([facility]) Seasonal allergic rhinitis Unspecified asthma(493.90) Diagnosed in [...] with Pulm 7. 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- ICD9: 414.01, ICD10: [...] Past Histories independently gathered by the clinical senior support analyst and the remaining scribed note [...] AM. Zulma Gloria MA documented in this encounterMarietta Memorial Hospital11-08-2024 NoteHNO ID: [id number] Author: AMERICO BORREGO MD Service: ? Author [...] does get some anxiety when [place]. His chest gets a [...] HISTORY Diagnosis Date CAD (coronary artery disease), morongo coronary artery 2014 No PCI indicated. no industrial education teacher needed Closed fracture of femur ([facility]) 11/2010 Depressive disorder, not elsewhere classified Diabetes mellitus type 2 in obese DVT of lower extremity (deep venous thrombosis) ([facility]) 11/2010 left Esophageal reflux Essential hypertension CATY (obstructive sleep apnea) CPAP needs another sleep study machine set too high Pelvic fracture ([facility]) Seasonal allergic rhinitis Unspecified asthma(493.90) Diagnosed in 20s. Previous Surgical History PAST SURGICAL HISTORY Procedure Laterality Date COLONOSCOPY FLX DX W/COLLJ SPEC WHEN PFRMD 11/04/10 Normal colon COLONOSCOPY FLX DX W/COLLJ SPEC WHEN PFRMD 01/21/16 few diverticula EGD TRANSORAL BIOPSY SINGLE/MULTIPLE 11/04/10 duodenitis EGD TRANSORAL BIOPSY SINGLE/MULTIPLE 01/21/16 minimal gastritis EXC TUMOR [facility],PERCUTANEOUS 2013 Cardiac cath, L [...] times daily. Dx: Typ (more content not included)...[facility] 08-22-2024 NoteHNO ID: [id number] Author: MALU TIRADO MA Service: ? Author Type: Cable Systems Installer Type: Progress Notes Filed: 08/22/2024 13:07 Note Text: POPULATION HEALTH NAVIGATION OUTREACH Action/FYI INVALID NUMBER [place] MESSAGE SENT ANNUAL MEDICARE WELLNESS CHRIS FLU Reason for Outreach Care Gap/HCC or Scheduling Wellness Visits Care Gaps due: Medicare Annual Wellness Visit Diabetic Eye Exam Flu Vaccine Patient Contacted: Unable or unnecessary to reach patient: Unable to leave message [employer] message sent Navigation Signature: Malu Tirado MA August 22, 2024 7:57 [facility]11-06-2024 History of Present illness Narrative* Malu Tirado MA - 08/22/2024 7:57 AM EST POPULATION HEALTH NAVIGATION OUTREACH Action/FYI INVALID NUMBER [place] MESSAGE SENT ANNUAL MEDICARE WELLNESS CHRIS FLU Reason for Outreach Care Gap/HCC or Scheduling Wellness Visits Care Gaps due: Medicare Annual Wellness Visit Diabetic Eye Exam Flu Vaccine Patient Contacted: Unable or unnecessary to reach patient: Unable to leave message [employer] message sent Navigation Signature: Malu Tirado MA August 22, 2024 7:57 AM documented in this encounterMarietta [facility] Hospital11-06-2024 NotePatient Outreach (NETNAV) ELIEL SOUZA ([id number]) 1970 M Date Time Provider Department 08/22/24 MALU TIRADO NETKATHARINE During your visit today, we recorded the following information about you: Malu Tirado MA 08/22/2024 1:07 PM Signed POPULATION HEALTH NAVIGATION OUTREACH Action/I INVALID NUMBER [place] MESSAGE SENT ANNUAL MEDICARE WELLNESS CHRIS FLU Reason for Outreach Care Gap/HCC or Scheduling Wellness Visits Care Gaps due: Medicare Annual Wellness Visit Diabetic Eye Exam Flu Vaccine Patient Contacted: Unable or unnecessary to reach patient: Unable to leave message [employer] message sent Navigation Signature: Malu Tirado MA August 22, 2024 7:57 AM Allergies As of Date: 08/22/2024 (No Known Allergies) Date Reviewed: 05/22/2024 Reviewed by: Lluvia Bright MA - Fully Assessed Reason for Visit: Population Health Navigation Outreach [3910] Cmt: [facility] MARTINEZ PCSA Prescriptions as of [...] with hyperglycemia, wi* Coronary artery disease involving morongo ragland*07/05/2014 Obstructive sleep apnea treated with BiPAP [...] 05/03/2020 Hydrocele [N43.3] 09/03/2020 (more content not included)...[facility]08-21-2024 Telephone encounter Note* Telephone Encounter - Malika Sethi APRN.GROUP WORK PROGRAM DIRECTOR - 06/06/2024 3:02 PM EDT The following approved medication requests have been transmitted electronically. Requested Prescriptions Pending Prescriptions Disp Refills insulin detemir U-100 (LEVEMIR FLEXTOUCH U-100 INSULIN) 100 unit/mL (3 mL) injection pen 10 Each 5 Sig: Inject 40 Units subcutaneously two times a day. Malika Sethi APRN.GISSELL [facility]08-21-2024 Miscellaneous Notes* Telephone Encounter - Malika Sethi [...] boxes.Pended. Last ov: 05-22-24 documented in this encounterMarietta [facility] Hospital08-21-2024 Telephone encounter Note * Telephone Encounter - Lizzette Garcia RN - 06/06/2024 11:07 AM EDT MANOJ Martinez, maria g pcp sent Rx for Levemir to dispense 8 each. States each box has 5 pens and they cannot split up the box. Asking if pcp can send Rx to read 10 pens and they will dispense 2 boxes.Pended. Last ov: 05-22-24 [facility]08-06-2024 Instructions* Patient Instructions* Americo Borrego MD - 05/22/2024 10:00 AM EDT Decrease Levemir insulin to 40 units twice daily Decrease Humalog to 20 units with dinner documented in this encounterMarietta Memorial Hospital08-06-2024 History of Present illness Narrative* Americo Borrego MD - 05/22/2024 9:40 AM EDT Chief Complaint Patient presents with: F/U 3 Month HPI Eliel Souza is a 53 year old male who presents here today for 3 month follow up. Has handicap placard due to COPD/Asthma causing SOB. No bowel, gi, or urinary issues. Hx of Ileostomy. Was seen at [facility] ED on 05/14/24 for abdominal pain.Has [...] left worse. Taking Jardiance 10 mg daily, Fzrnhdo95 units BID, and Humalog 30 units PM. [...] as needed. Is not following with any Auditor Medical Claims, was referred to one last visit and [...] MEDICAL HISTORY 2014: CAD (coronary artery disease), morongo coronary artery Comment: No PCI indicated. no industrial education teacher needed 11/2010: Closed fracture of femur (HCC) [...] Moderate Americo Borrego MD documented in this encounterMarietta Memorial Hospital08-06-2024 NoteHNO ID: [id number] Author: AMERICO BORREGO MD Service: ? Author Type: Physician Type: Progress Notes Filed: 05/22/2024 11:48 Note Text: Chief Complaint Patient presents with: F/U 3 Month HPI Eliel Souza is a 53 year old male who presents here today for 3 month follow up. Has handicap placard due to COPD/Asthma causing SOB. No bowel, gi, or urinary issues. Hx of Ileostomy. Was seen at [facility] ED on 05/14/24 for abdominal pain. [...] as needed. Is not following with any Auditor Medical Claims, was referred to one last visit and [...] MEDICAL HISTORY 2014: CAD (coronary artery disease), morongo coronary artery Comment: No PCI indicated. no industrial education teacher needed 11/2010: Closed fracture of femur (HCC) [...] Puffs as instructed every (more content not included)...[facility]07-29-2024 NoteHNO ID: [id number] Author: MATILDE GAN APRN.GROUP WORK PROGRAM DIRECTOR Service: ? Author Type: Nurse Practitioner Type: Progress Notes Filed: 05/14/2024 14:30 Note Text: This note was created using [employer]. Subjective Eliel Souza is a 53 year [...] going to an emergency room. Matilde Gan APRN.[facility]07-29-2024 History of Present illness Narrative* Matilde Gan APRN.[facility] - 05/14/2024 2:22 PM EDT This [...] going to an emergency room. Matilde Gan APRN.GROUP WORK PROGRAM DIRECTOR documented in this encounterMarietta Memorial Hospital06-07-2024 Telephone encounter Note * Telephone Encounter - Americo Borrego MD - 03/23/2024 3:06 PM EDT OK to refill as ordered Americo Borrego MD [facility]06-07-2024 Miscellaneous Notes* Telephone Encounter - Americo Borrego [...] Thank you. Gaviota Higgins. documented in this encounterMarietta Memorial Hospital06-07-2024 Telephone encounter Note * Telephone Encounter - [...] 05/22/2024 Please advise. Thank you. Gaviota Higgins. [facility]05-15-2024 Telephone encounter Note* Telephone Encounter - Margarita Valles RP - 02/29/2024 1:43 PM EDT Patient recently referred to PharmD team by PCP. PSS unable to reach after several attempts. Calledpatient again and unable to reach. Forwarding to PCP as FYI that unable to schedule patient for initial PharmD visit. Margarita Valles PharmD, [facility] Primary [facility] Clinical Pharmacist [facility] Work Phone: 1(539) 322-236505-15-2024 Miscellaneous Notes* Telephone Encounter - Margarita Valles RPh - 02/29/2024 1:43 PM EDT Patient recently referred to PharmD team by PCP. PSS unable to reach after several attempts. Calledpatient again and unable to reach. Forwarding to PCP as FYI that unable to schedule patient for initial PharmD visit. Margarita Valles PharmD, [facility] Primary Care Clinical Pharmacist documented in this encounterMarietta Memorial Hospital05-08-2024 Telephone encounter Note * Telephone Encounter - Kandace Alicea PSS - 02/22/2024 9:04 AM EDT Telephoned the patient to schedule a new Primary Care pharmacy appt. Left a message. Made two attempts to contact the patient. Patient has not returned the call. If the patient returns a call, an appt will be scheduled. Encounter routed to the clinical pharmacist. [facility]05-08-2024 Miscellaneous Notes* Telephone Encounter - Kandace Alicea [...] appt. Left a message. documented in this encounterMarietta Memorial Hospital05-07-2024 Telephone encounter Note * Telephone Encounter - Kandace Alicea PSS - 02/21/2024 2:10 PM EDT Telephoned the patient to schedule a new Primary Care pharmacy appt. Left a message. [facility]05-06-2024 History of Present illness Narrative* Americo Borrego MD - 02/20/2024 12:40 PM EDT Chief Complaint Patient presents with: F/U 6 Month HPI Eliel Souza is a 53 year old male who presents here today for a 6 month follow up. Pt here today for his routine follow up and lab review. Pt seen at [facility] ED on 01/29/24 for a cough. [...] HISTORY Diagnosis Date CAD (coronary artery disease), morongo coronary artery 2014 No PCI indicated. no industrial education teacher needed Closed fracture of femur (HCC) 11/2010 Depressive disorder, not elsewhere classified Diabetes mellitus type 2 in obese (HCC) ([facility]) DVT of lower extremity (deep venous thrombosis) ([facility]) 11/2010 left Esophageal reflux Essential hypertension CATY (obstructive sleep apnea) CPAP needs another sleep study machine set too high Pelvic fracture ([facility]) Seasonal allergic rhinitis Unspecified asthma(493.90) Diagnosed in [...] Past Histories independently gathered by the clinical senior support analyst and the remaining scribed note [...] PM. Lluvia Bright MA documented in this encounterMarietta Memorial Hospital04-14-2024 Discharge summary Author Bruce Dong [facility] January 29, 2024 2:44am Note Date/Time January 29, 2024 12: 55am [facility] Medical Records Department [address] [place] [address] Emergency Department Summary 01/29/24 MR#: [id number] Acct: [id number] Name: ELIEL SOUZA Rep #:[id number] : 1970 53 From: Bruce Dong DO [...] pulse ox was 95% on room air [facility] Medical History BPH (benign prostatic [...] (Auto) 46.1 L Lymph % (Auto) 39.1 Moody % (Auto) 7.4 Eos % (Auto) 4.7 [...] 2:17 EDT Reading Location ID and State: [facility] / [place] Tel , Service support , 2 view [...] problems, contact your Primary Care Provider. Call M-DISC Registry ([phone]) or report to the closest Emergency Room. Call 911 if necessary. 01/29/24 0244 <Electronically signed by Bruce Dong DO> Cosigner Signature (if applicable): CC: Dr. Americo Borrego MD ~ Signed [facility] Work Phone: 1(101) 514-722904-10-2024 Miscellaneous Notes* Telephone Encounter - Dean Goldberg APRN.GISSELL - 01/25/2024 2:43 PM EDT The following approved medication requests have been transmitted electronically. Requested Prescriptions Pending Prescriptions Disp Refills albuterol HFA (PROVENTIL HFA, VENTOLIN HFA) 90 mcg/actuation inhaler 1 Each 0 Sig: Inhale 2 Puffs as instructed every 4 hours as needed for wheezing/shortness of breath. Dean Goldberg APRN.GROUP WORK PROGRAM DIRECTOR * Telephone Encounter - Rhona Cardoza LPN [...] Thank you. Victoria Lancaster. documented in this encounterMarietta Memorial Hospital02-14-2024 Miscellaneous Notes* Telephone Encounter - Malika Sethi [...] Thank you. Annalise Sheets. documented in this encounterMarietta Memorial Hospital02-12-2024 Miscellaneous Notes* Telephone Encounter - Malika Sethi [...] name and date of : Yes, [facility] Patient phones for refill(s): Requested Prescriptions Pending [...] Thank you. Malika Patterson. documented in this encounterMarietta Memorial Hospital02-10-2024 History of Present illness Narrative* Emil Luo [...] onsetfever. Emil Luo MD documented in this encounterMarietta Memorial Hospital02-06-2024 Miscellaneous Notes* Telephone Encounter - Lluvia Bright Ma - 11/22/2023 8:17 AM EST Call to pt and notified him that letter has been written and is available for case picker today at Medical Records after 12:00 pm. Letter forwarded to Medical Records. Lluvia Bright Ma * Telephone Encounter - Americo Borrego MD - 11/21/2023 7:33 PM EST Letter done Americo Borrego MD * Telephone Encounter - Franca Goode RN - 11/21/2023 2:25 PM EST Pt reports he received a letter for upcoming jury duty at the [employer]. Asking if PCP would write a letter excusing him from jury duty due to his GI history and use of bathroom frequently. Patient would like called once letter is ready for case picker, if provider agreeable to completing letter. Franca Goode, RN documented in this encounterMarietta Memorial Hospital12-06-2023 History of Present illness Narrative* Samina Cruz [...] 21, 2023 4:06 PM documented in this encounterMarietta Memorial Hospital12-06-2023 History of Present illness Narrative* Chen Souza APRN.GROUP WORK PROGRAM DIRECTOR - 09/21/2023 3:53 PM EST This note was created using [employer]. Subjective Eliel Souza is a 53 year [...] - AZITHROMYCIN 250 MG TABLET Chen Souza APRN.GROUP WORK PROGRAM DIRECTOR documented in this encounterMarietta Memorial Hospital11-08-2023 Miscellaneous Notes* Telephone Encounter - Ayse Lawrence [...] notify patient. Mandi Sheets documented in this encounterMarietta Memorial Hospital11-08-2023 Miscellaneous Notes* Telephone Encounter - Mray Jane Wade RN - 08/24/2023 2:37 PM [...] calling: self Call patient at: at home [phone] (home) Was an appointment scheduled: No Patient said he has COPD. Said he has a chest cold and Dr. Borrego usually prescribes prednisonewhen he gets a chest cold. Would like direction. Closing statement: Symptom Call: Thank you for calling [facility], your call is very important. A nurse will call in approximately 2-4 hours during business hours. If this is an emergency, please contact 911. Mandi Sheets documented in this encounterMarietta Memorial Hospital09-13-2023 Instructions* Patient Instructions* Malika Sethi APRN.GROUP WORK PROGRAM DIRECTOR - 06/29/2023 2:06 PM EDT Start Jardiance [...] sugar level consistently (80-130) documented in this encounterMarietta Memorial Hospital09-13-2023 History of Present illness Narrative* Malika Sethi [...] HISTORY Diagnosis Date CAD (coronary artery disease), morongo coronary artery 2014 No PCI indicated. no industrial education teacher needed Closed fracture of femur ([facility]) 11/2010 Depressive disorder, not elsewhere classified Diabetes mellitus type 2 in obese ([facility]) DVT of lower extremity (deep venous thrombosis) ([facility]) 11/2010 left Esophageal reflux Essential hypertension CATY (obstructive sleep apnea) CPAP needs another sleep study machine set too high Pelvic fracture ([facility]) Seasonal allergic rhinitis Unspecified asthma(493.90) Diagnosed in [...] APRN.CNP This note was partially generated using [employer] voice recognition system. Note was reviewed for accuracy. There may be minor misspellings or grammar miscues with [employer] voice recognition. documented in this encounterMarietta Memorial Hospital09-08-2023 Miscellaneous Notes* Telephone Encounter - Dean Goldberg [...] notify patient. Deyanira Bazzi documented in this encounterMarietta Memorial Hospital08-31-2023 Miscellaneous Notes* Telephone Encounter - Lluvia Bright [...] or jardiance please send to pharmacy/ [facility] [place] for next RX pick-up. Please notify patient of provider response, phone number [phone] Patient has been identified by name and birthdate. Person calling: self Call patient at: on cell [phone] (home) [phone] (cell) Was an appointment scheduled: No Closing statement: Results or non-symptom based questions: Thank you for calling [facility], your call will be returned within the next business day. Victoria Lnacaster documented in this encounterMarietta Memorial Hospital07-10-2023 Miscellaneous Notes* Telephone Encounter - Americo Borrego [...] notify patient. Deyaniracristóbal Bazzi documented in this encounterMarietta Memorial Hospital03-17-2023 Miscellaneous Notes* Telephone Encounter - Zulma Gloria [...] advise. Manjula Sterlingkirstin Sheets documented in this encounterMarietta Memorial Hospital02-20-[address] Whiteside [facility] December 06, 2022 2:25pm Note Date/Time December 06, 2022 12:02pm [facility] Medical Records Department [address] [place] [address] Emergency Department Summary 12/06/22 MR#: [id number] Acct: [id number] Name: ELIEL SOUZA Rep #:[id number] : 1970 52 From: Sameer Whitesdie MD PCP: Dr. Americo Borrego MD Status:RE [...] Prior similar symptoms: Yes Recent [facility] Medical History (Updated 12/06/22 @ 14:24 by [...] 73.9 H Lymph % (Auto) 12.2 L Moody % (Auto) 11.6 H Eos % (Auto) [...] follows: Interpretation: Sinus Rhythm (Rate is 90. [place] to the right. UT intervalis under 68 ms. QRS duration 98 [...] your Primary Care Provider. Call [facility] ([phone]) or report to the closest Emergency Room. Call 911 if necessary. 12/06/22 1425 <Electronically signed by Sameer Whiteside MD> Cosigner Signature (if applicable): CC: Dr. Americo Borrego MD ~ Signed [facility] Work Phone: [phone]) 811-591802-10-2023 Miscellaneous Notes* Telephone Encounter - Americo Borrego MD - 11/26/2022 4:30 PM EST OK to refill as ordered Americo Borrego MD * Telephone Encounter - Lluvia Bright Ma - 11/26/2022 4:25 PM EST Last OV: 01/07/22 virtually. Next OV: None Last Rx: 11/03/21 #45 w/11. Lluvia Bright Ma documented in this encounterMarietta Memorial Hospital09-23-2022 Miscellaneous Notes* Telephone Encounter - Malika Sethi [...] you. Aide Chamberlain RN documented in this encounterMarietta Memorial Hospital09-23-2022 Miscellaneous Notes* Telephone Encounter - Aide Chamberlain [...] 1:18 PM EDT Office received fax from [employer] for Prior Auth of pt's rescue inhaler. Pt currently being prescribed ProAir HFA 90 mcg and PA is required. Inhalers that do not require Authorization are: Albuterol Sulfate HFA Levalbuterol Tartrate Ventolin HFA. Lluvia Bright Ma documented in this encounterMarietta Memorial Hospital09-19-2022 Miscellaneous Notes* Telephone Encounter - Zulma Gloria [...] advise. Rhona Cardoza LPN documented in this encounterMarietta Memorial Hospital09-13-2022 Miscellaneous Notes* Telephone Encounter - Zulma Gloria Ma - 06/29/2022 9:16 AM EDT Pt notified of results via [employer]. Zulma Gloria Ma * Telephone Encounter - Cyndi Ayala MA - 06/28/2022 2:33 PM EDT Unable to reach patient. Left VM to return call to office. Please read below and advise. Cyndi Ayala MA * Telephone Encounter - Dean Goldberg APRN.GROUP WORK PROGRAM DIRECTOR - 06/28/2022 2:24 PM EDT Patient has [...] does need increased. [facility] [place]. documented in this encounterMarietta Memorial Hospital08-17-2022 Miscellaneous Notes* Telephone Encounter - Avelina Sweet Ma - 06/02/2022 2:34 PM EDT Spoke to spouse who advised patient has no issue with any brand and aware has to take whatever insurance gives. [facility] advised [facility] ready for case picker so not sure what issue is. Spoke [...] a hard time. Patient phone number is [phone] He uses the [facility] in [place] documented in this encounterMarietta Memorial Hospital03-24-2022 Nurse Note* Lluvia Bright Ma - 01/07/2022 2:49 PM EDT Pt requested parking placard be mailed to home address. This has been completed. Lluvia Bright Ma documented in this encounterMarietta Memorial Hospital03-24-2022 History of Present illness Narrative* Americo Borrego [...] HISTORY Diagnosis Date CAD (coronary artery disease), morongo coronary artery 2014 No PCI indicated. no industrial education teacher needed Closed fracture of femur (HCC) 11/2010 Depressive disorder, not elsewhere classified Diabetes mellitus type 2 in obese (HCC) DVT of lower extremity (deep venous thrombosis) ([facility]) 11/2010 left Esophageal reflux Essential hypertension CATY [...] this Rx for parking placard printed; will irivn to pt Follow up prn I agree with the Chief Complaint, ROS, and Past Histories independently gathered by the clinical senior support analyst and the remaining scribed note accurately describes my personal service to the patient. Americo Borrego MD The documentation for this note was completed by Lluvia Bright Ma acting as scribe for Americo Borrego MD. January 07, 2022 2:36 PM. Lluvia Bright Ma documented in this encounterMarietta Memorial Hospital03-24-2022 Miscellaneous Notes* Telephone Encounter - Lluvia Bright [...] possible [facility] [place]. Ashley Umana Pss documented in this encounterMarietta Memorial Hospital01-27-2020 History of Past illness Narrative* Problem Noted [...] of this encounter (statuses as of 01/07/2022) [facility] of Past illness Narrative* Problem Noted [...] of this encounter (statuses as of 01/07/2022) [facility] of Past illness Narrative* Problem Noted [...] of this encounter (statuses as of 06/02/2022) [facility] of Past illness Narrative* Problem Noted [...] of this encounter (statuses as of 06/29/2022) [facility] of Past illness Narrative* Problem Noted [...] of this encounter (statuses as of 07/05/2022) [facility] of [facility] illness Narrative* Problem Noted [...] of this encounter (statuses as of 07/09/2022) [facility] of [facility] illness Narrative* Problem Noted [...] of this encounter (statuses as of 10/17/2022) [facility] illness Narrative* Problem Noted [...] of this encounter (statuses as of 11/26/2022) [facility] illness Narrative* Problem Noted [...] of this encounter (statuses as of 12/31/2022) [facility] illness Narrative* Problem Noted [...] of this encounter (statuses as of 04/25/2023) [facility] Narrative* Problem Noted [...] of this encounter (statuses as of 06/17/2023) [facility] illness Narrative* Problem Noted [...] of this encounter (statuses as of 06/24/2023) [facility] illness Narrative* Problem Noted [...] of this encounter (statuses as of 06/30/2023) [facility] illness Narrative* Problem Noted [...] of this encounter (statuses as of 08/25/2023) [facility] illness Narrative* Problem Noted [...] of this encounter (statuses as of 08/25/2023) [facility] Narrative* Problem Noted [...] of this encounter (statuses as of 09/22/2023) [facility] illness Narrative* Problem Noted [...] of this encounter (statuses as of 11/22/2023) [facility] Narrative* Problem Noted [...] of this encounter (statuses as of 11/26/2023) [facility] Narrative* Problem Noted [...] of this encounter (statuses as of 12/17/2023) [facility] Narrative* Problem Noted [...] of this encounter (statuses as of 01/26/2024) [facility] illness Narrative* Problem Noted [...] of this encounter (statuses as of 01/28/2024) [facility] note* Diagnosis Chronic obstructive pulmonary disease with acute exacerbation (HCC)- Primary Obstructive chronic bronchitis with exacerbation documented in this encounter [facility] note* Diagnosis Type 2 diabetes mellitus without complication, 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 prison insulin use (HCC) documented in this encounter [facility] noteNo assessment information availableWLouis Stokes [facility] Work Phone: Evaluation note* Diagnosis Hyperlipidemia, unspecified hyperlipidemia type- Primary Controlled type 2 diabetes mellitus without complication, with long-term current use of insulin (HCC) Essential hypertension Unspecified essential hypertension documented in this encounter [facility] note* Diagnosis Type 2 diabetes mellitus without complication, 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 [employer] insulin use (HCC) documented in this encounter [facility] note* Diagnosis Type 2 diabetes mellitus without complication, 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 [employer] insulin use (HCC)- Primary Essential hypertension Unspecified essential hypertension Hyperlipidemia, unspecified hyperlipidemia type Depression, unspecified depression type FAISAL (generalized anxiety disorder) Generalized anxiety disorder Chronic obstructive pulmonary disease, unspecified COPD type (HCC) Gastroesophageal reflux disease, 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 esophagitis present Obstructive sleep apnea treated with BiPAP Encounter for screening for lung cancer documented in this encounter [facility] note* Diagnosis SOB (shortness of breath)- Primary Shortness of breath COPD with exacerbation (HCC) Obstructive chronic bronchitis with exacerbation documented in this encounter [facility] note* Diagnosis Asthma with COPD with exacerbation (HCC) (HCC)- Primary Chronic obstructive asthma with exacerbation documented in this encounter [facility] note* Diagnosis Chronic obstructive pulmonary disease, unspecified COPD type (HCC) Type 2 diabetes mellitus without complication, 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 prison insulin use (HCC) documented in this encounter [facility] note* Diagnosis Type 2 diabetes [...] (HCC) Thrombocytopenia, unspecified [facility] [place] [facility] Diagnosis Essential hypertension Unspecified essential hypertension documented in this encounter [facility] note* Diagnosis Left lower quadrant abdominal pain- Primary documented in this encounter [facility] note* Diagnosis Hospital discharge follow-up- Primary Other follow-up examination Type 2 diabetes mellitus without complication, 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 [employer] insulin use (HCC) Essential hypertension Unspecified essential [...] and behavioral disorders documented in this encounter [facility] note* Diagnosis COPD with exacerbation [...] not elsewhere classified Coronary artery disease involving morongo coronary artery of morongo heart Hyponatremia Hyposmolality and/or hyponatremia Hypophosphatemia Disorders [...] insulin use (HCC) documented in this encounter [facility] note* Diagnosis COPD with exacerbation [...] not elsewhere classified Coronary artery disease involving morongo coronary artery of morongo heart Hyponatremia Hyposmolality and/or hyponatremia Hypophosphatemia Disorders [...] Shortness of breath [facility] [place] [facility]* Diagnosis COPD with exacerbation ([facility])- Primary Obstructive chronic bronchitis with exacerbation Type [...] not elsewhere classified Coronary artery disease involving morongo coronary artery of morongo heart Hyponatremia Hyposmolality and/or hyponatremia Hypophosphatemia Disorders [...] hyperglycemia, with long-term current use of insulin ([facility])- Primary Depression, unspecified depression type Gastroesophageal reflux disease, 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 esophagitis present Hyperlipidemia, unspecified hyperlipidemia type Chronic obstructive pulmonary disease, unspecified COPD type (HCC) Mild asthma without complication, 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 persistent 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 Obstructive sleep apnea treated with BiPAP Essential hypertension Unspecified essential hypertension documented in this encounter [facility] note* Diagnosis COPD with exacerbation [...] not elsewhere classified Coronary artery disease involving morongo coronary artery of morongo heart Hyponatremia Hyposmolality and/or hyponatremia Hypophosphatemia Disorders [...] without complication, 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 prison insulin use ([facility]) documented in this encounter [facility] note* Diagnosis COPD with exacerbation [...] not elsewhere classified Coronary artery disease involving morongo coronary artery of morongo heart Hyponatremia Hyposmolality and/or hyponatremia Hypophosphatemia Disorders [...] 2 diabetes mellitus without complication, 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 [employer] insulin use (HCC)- Primary Essential hypertension Unspecified essential hypertension Hyperlipidemia, unspecified hyperlipidemia type Depression, unspecified depression type FAISAL (generalized anxiety disorder) Generalized anxiety disorder Gastroesophageal reflux disease, 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 esophagitis present Mild asthma without complication, 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 persistent Obstructive sleep apnea treated with BiPAP Chronic obstructive pulmonary disease, unspecified COPD type (HCC) History of ileostomy Ileostomy status documented in this encounter [facility] note* Diagnosis COPD with exacerbation [...] not elsewhere classified Coronary artery disease involving morongo coronary artery of morongo heart Hyponatremia Hyposmolality and/or hyponatremia Hypophosphatemia Disorders [...] Unspecified essential hypertension [facility] Additional Instructions Please continue your albuterol inhaler to help with bronchospasm/shortness of breath. Use the prescribed cough medication to help reduce your cough and follow-up with your family doctor for repeat evaluation. Your workup today shows no sign of heart damage or pneumonia. Please return to the ER should you have any worsening of symptoms or any further concernsWLouis [facility] Work Phone: Hospital Discharge instructionsAdditional Instructions Use [...] viral illness that is causing a COPD exacerbationWLouis [facility] Work Phone: Reason for referral (narrative)* Outpatient Procedure (Routine) - Authorized Specialty Diagnoses / Procedures Referred By Contac t Referred To Contact [facility] Diagnoses Chronic obstructive pulmonary disease, unspecified COPD type (HCC) Procedures SPIROMETRY - BASELINE AND POST DILATOR BRNCDILAT RSPSE SPMTRY PRE&POST-BRNCDILAT ADMN Americo Borrego MD [address] [place] [address] [facility] [address] [place] [address] Referral ID Status Reason Start Date Expiration Date Visits Requested Visits Authorized [id number] Authorized Auto-Generat ed Referral 02/20/2024 03/21/2025 1 1 [facility] for referral (narrative)No reason for referral information availableWLouis [facility] Work Phone: Summary Purpose Family History No [...] FoundDocuments on File Type Date Recorded Patient Nursing Admin Expl anation Advance Directive(s) 09/15/2020 5:06 AM Advance Directive(s) 09/03/2020 2:18 PM Advance Directive(s) 04/29/2020 11:50 AM Advance Directive(s) 04/29/2020 3:25 PM Advance Directive(s) 04/29/2020 3:26 PM Advance Directive(s) 11/08/2019 6:53 AM Documents on File Type Date Recorded Patient Nursing Admin Expl anation Advance Directive(s) 04/29/2020 3:26 PM Advance Directive Response Recorded Date/ Time Advance Directives No November 18, 2016 1:01pm Living Will No December 06, 023 11:32am Power of Thinner Sprayer No December 06, 2022 11:32am Advance Directive Response Recorded Date/ Time Advance Directives No November 18, 2016 2:01pm Living Will No January 29, 2024 12:08am Power of Thinner Sprayer No January 28 12:08am Documents on File Type Date Recorded Patient Nursing Admin Expl anation Advance Directive(s) 04/29/2020 3:26 PM Advance Directive Response Recorded Date/ Time Do you have a Healthcare Power of Thinner Sprayer? No July 06, 2025 3:02pm Advance Directives No November 18, 2016 2:01pm Procedure Findings Note HNO ID: [id number] Author: Sunny Bingham Service: ? Author Type: Nurse Acid Operator Type: Anesthesia Procedure Notes Filed: 09/03/2020 4:34 PM Note Text: ANESTHESIOLOGY PROCEDURE NOTE Airway General Information Procedure Start Time/Medication Administration: 09/03/2020 4:29 PM Patient location during procedure: OR Timeout Performed Pre-procedure: timeout performed Consent Obtained: Yes Patient identity confirmed: arm band Staffing GROUNDS CLEANER: Lloyd Bingham Performed by: ALVARO Indications and [...] no Airway not difficult SIGNATURE: Lloyd Bingham APRN.GROUNDS CLEANER PATIENT NAME: (more content not included)... Chief Complaint and Reason for Visit Chief Complaint n/v/d Chief Complaint sob Chief Complaint Admit Date sob July 06, 2025 3:02pm Reason for Referral Specialty Diagnoses / Procedures Referred By Gwen t Referred To Contact Ophthalmology Diagnoses Type 2 diabetes mellitus without complication, 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 prison insulin use (HCC) Procedures CONSULT TO OPHTHALMOLOGY OFFICE/OUTPATIENT [facility] HIGH MDM 60 MINUTES Americo Borrego MD [address] [place] [address] Referral ID Status Reason Start Date Expiration Date Visits Requested Visits Authorized [id number] Authorized PCP Requested Referral 05/22/2024 05/22/2025 1 1 Additional Source Comments (unrecognized sect ion and content) No Status Records FoundNo Status Records FoundNo Status Records FoundNo Status Records Found INFORMATION SOURCE (unrecogn ized section and content) DATE CREATED AUTHOR 09/04/2020 [facility] ([place]) DATE CREATED AUTHOR AUTHOR'S ORGANIZ ATION 09/09/2020 [facility] DATE CREATED AUTHOR AUTHOR'S ORGANIZ ATION 04/13/2025 [facility] DATE CREATED AUTHOR AUTHOR'S ORGANIZ ATION 08/28/2025 [facility] Source Comments (unrecognize d section and content) In the event this informatio n is protected by the Federal Confidentiality of Alcohol and Drug Abuse Patient Records regulations: The Federal rules restrict any use of the information to criminally investigate or prosecute any alcohol or drug abuse patient.[facility] HospitalIn the event this information is protected by the Federal Confidentiality of Alcohol and Drug Abuse Patient Records regulations: The Federal rules restrict any use of the information to criminally investigate or prosecute any alcohol or drug abuse patient.[facility] HospitalIn the event this information is protected by the Federal Confidentiality of Alcohol and Drug Abuse Patient Records regulations: The Federal rules restrict any use of the information to criminally investigate or prosecute any alcohol or drug abuse patient.[facility] HospitalIn the event this information is protected by the Federal Confidentiality of Alcohol and Drug Abuse Patient Records regulations: The Federal rules restrict any use of the information to criminally investigate or prosecute any alcohol or drug abuse patient.[facility] HospitalIn the event this information is protected by the Federal Confidentiality of Alcohol and Drug Abuse Patient Records regulations: The Federal rules restrict any use of the information to criminally investigate or prosecute any alcohol or drug abuse patient.[facility] HospitalIn the event this information is protected by the Federal Confidentiality of Alcohol and Drug Abuse Patient Records regulations: The Federal rules restrict any use of the information to criminally investigate or prosecute any alcohol or drug abuse patient.[facility] HospitalIn the event this information is protected by the Federal Confidentiality of Alcohol and Drug Abuse Patient Records regulations: The Federal rules restrict any use of the information to criminally investigate or prosecute any alcohol or drug abuse patient.[facility] HospitalIn the event this information is protected by the Federal Confidentiality of Alcohol and Drug Abuse Patient Records regulations: The Federal rules restrict any use of the information to criminally investigate or prosecute any alcohol or drug abuse patient.[facility] HospitalIn the event this information is protected by the Federal Confidentiality of Alcohol and Drug Abuse Patient Records regulations: The Federal rules restrict any use of the information to criminally investigate or prosecute any alcohol or drug abuse patient.[facility] HospitalIn the event this information is protected by the Federal Confidentiality of Alcohol and Drug Abuse Patient Records regulations: The Federal rules restrict any use of the information to criminally investigate or prosecute any alcohol or drug abuse patient.[facility] HospitalIn the event this information is protected by the Federal Confidentiality of Alcohol and Drug Abuse Patient Records regulations: The Federal rules restrict any use of the information to criminally investigate or prosecute any alcohol or drug abuse patient.[facility] HospitalIn the event this information is protected by the Federal Confidentiality of Alcohol and Drug Abuse Patient Records regulations: The Federal rules restrict any use of the information to criminally investigate or prosecute any alcohol or drug abuse patient.[facility] HospitalIn the event this information is protected by the Federal Confidentiality of Alcohol and Drug Abuse Patient Records regulations: The Federal rules restrict any use of the information to criminally investigate or prosecute any alcohol or drug abuse patient.[facility] HospitalIn the event this information is protected by the Federal Confidentiality of Alcohol and Drug Abuse Patient Records regulations: The Federal rules restrict any use of the information to criminally investigate or prosecute any alcohol or drug abuse patient.[facility] HospitalIn the event this information is protected by the Federal Confidentiality of Alcohol and Drug Abuse Patient Records regulations: The Federal rules restrict any use of the information to criminally investigate or prosecute any alcohol or drug abuse patient.[facility] HospitalIn the event this information is protected by the Federal Confidentiality of Alcohol and Drug Abuse Patient Records regulations: The Federal rules restrict any use of the information to criminally investigate or prosecute any alcohol or drug abuse patient.[facility] HospitalIn the event this information is protected by the Federal Confidentiality of Alcohol and Drug Abuse Patient Records regulations: The Federal rules restrict any use of the information to criminally investigate or prosecute any alcohol or drug abuse patient.[facility] HospitalIn the event this information is protected by the Federal Confidentiality of Alcohol and Drug Abuse Patient Records regulations: The Federal rules restrict any use of the information to criminally investigate or prosecute any alcohol or drug abuse patient.[facility] HospitalIn the event this information is protected by the Federal Confidentiality of Alcohol and Drug Abuse Patient Records regulations: The Federal rules restrict any use of the information to criminally investigate or prosecute any alcohol or drug abuse patient.[facility] HospitalIn the event this information is protected by the Federal Confidentiality of Alcohol and Drug Abuse Patient Records regulations: The Federal rules restrict any use of the information to criminally investigate or prosecute any alcohol or drug abuse patient.[facility] HospitalIn the event this information is protected by the Federal Confidentiality of Alcohol and Drug Abuse Patient Records regulations: The Federal rules restrict any use of the information to criminally investigate or prosecute any alcohol or drug abuse patient.[facility] HospitalIn the event this information is protected by the Federal Confidentiality of Alcohol and Drug Abuse Patient Records regulations: The Federal rules restrict any use of the information to criminally investigate or prosecute any alcohol or drug abuse patient.[facility] HospitalIn the event this information is protected by the Federal Confidentiality of Alcohol and Drug Abuse Patient Records regulations: The Federal rules restrict any use of the information to criminally investigate or prosecute any alcohol or drug abuse patient.[facility] HospitalIn the event this information is protected by the Federal Confidentiality of Alcohol and Drug Abuse Patient Records regulations: The Federal rules restrict any use of the information to criminally investigate or prosecute any alcohol or drug abuse patient.[facility] HospitalIn the event this information is protected by the Federal Confidentiality of Alcohol and Drug Abuse Patient Records regulations: The Federal rules restrict any use of the information to criminally investigate or prosecute any alcohol or drug abuse patient.[facility] HospitalIn the event this information is protected by the Federal Confidentiality of Alcohol and Drug Abuse Patient Records regulations: The Federal rules restrict any use of the information to criminally investigate or prosecute any alcohol or drug abuse patient.[facility] HospitalIn the event this information is protected by the Federal Confidentiality of Alcohol and Drug Abuse Patient Records regulations: The Federal rules restrict any use of the information to criminally investigate or prosecute any alcohol or drug abuse patient.[facility] HospitalIn the event this information is protected by the Federal Confidentiality of Alcohol and Drug Abuse Patient Records regulations: The Federal rules restrict any use of the information to criminally investigate or prosecute any alcohol or drug abuse patient.[facility] HospitalIn the event this information is protected by the Federal Confidentiality of Alcohol and Drug Abuse Patient Records regulations: The Federal rules restrict any use of the information to criminally investigate or prosecute any alcohol or drug abuse patient.[facility] HospitalIn the event this information is protected by the Federal Confidentiality of Alcohol and Drug Abuse Patient Records regulations: The Federal rules restrict any use of the information to criminally investigate or prosecute any alcohol or drug abuse patient.[facility] HospitalIn the event this information is protected by the Federal Confidentiality of Alcohol and Drug Abuse Patient Records regulations: The Federal rules restrict any use of the information to criminally investigate or prosecute any alcohol or drug abuse patient.[facility] HospitalIn the event this information is protected by the Federal Confidentiality of Alcohol and Drug Abuse Patient Records regulations: The Federal rules restrict any use of the information to criminally investigate or prosecute any alcohol or drug abuse patient.[facility] HospitalIn the event this information is protected by the Federal Confidentiality of Alcohol and Drug Abuse Patient Records regulations: The Federal rules restrict any use of the information to criminally investigate or prosecute any alcohol or drug abuse patient.[facility] HospitalIn the event this information is protected by the Federal Confidentiality of Alcohol and Drug Abuse Patient Records regulations: The Federal rules restrict any use of the information to criminally investigate or prosecute any alcohol or drug abuse patient.[facility] HospitalIn the event this information is protected by the Federal Confidentiality of Alcohol and Drug Abuse Patient Records regulations: The Federal rules restrict any use of the information to criminally investigate or prosecute any alcohol or drug abuse patient.[facility] HospitalIn the event this information is protected by the Federal Confidentiality of Alcohol and Drug Abuse Patient Records regulations: The Federal rules restrict any use of the information to criminally investigate or prosecute any alcohol or drug abuse patient.[facility] HospitalIn the event this information is protected by the Federal Confidentiality of Alcohol and Drug Abuse Patient Records regulations: The Federal rules restrict any use of the information to criminally investigate or prosecute any alcohol or drug abuse patient.[facility] HospitalIn the event this information is protected by the Federal Confidentiality of Alcohol and Drug Abuse Patient Records regulations: The Federal rules restrict any use of the information to criminally investigate or prosecute any alcohol or drug abuse patient.[facility] Reason for Visit (unrecogniz ed section and [...] Date Comments Population Health Navigation Outreach 08/22/2024 [facility]CD[facility] MARTINEZ PCSA Reason Comments F/U 3 Month Reason Onset Date Comments ACM SILVANO RN 09/12/2024 Medication Ad herence Review at request of payer Reason Onset Date Comments Refill Request 09/28/2024 Reason Comments Medication Problem Med Refills Reason Onset Date Comments Refill Request 06/13/2025 Care Teams (unrecognized sec tion and content) Grain Elevator Motor Starter Relationship Specialty Start Date End Date Americo Borrego MD [address] [place] [address] PCP - General Family Practice 05/07/15 Americo Borrego MD [address] [place] [address] Family Practice 05/07/15 Grain Elevator Motor Starter Relationship Specialty Start Date End Date Americo Borrego MD [address] [place] [address] PCP - General Family Practice 05/07/15 Americo Borrego MD [address] [place] [address] Family Practice 05/07/15 Grain Elevator Motor Starter Relationship Specialty Start Date End Date Americo Borrego MD [address] [place] [address] PCP - General Family Practice 05/07/15 Americo Borrego MD [address] [place] [address] Family Practice 05/07/15 Grain Elevator Motor Starter Relationship Specialty Start Date End Date Americo Borrego MD [address] [place] [address] PCP - General Family Medicine 05/07/15 Americo Borrego MD [address] [place] [address] Family Medicine 05/07/15 Grain Elevator Motor Starter Relationship Specialty Start Date End Date Americo Borrego MD [address] [place] [address] PCP - General Family Medicine 05/07/15 Americo Borrego MD [address] [place] [address] Family Medicine 05/07/15 Grain Elevator Motor Starter Relationship Specialty Start Date End Date Americo Borrego MD [address] [place] [address] PCP - General Family Medicine 05/07/15 Americo Borrego MD [address] [place] [address] Family Medicine 05/07/15 Team Status: Active Member Role Status Dates Dr. Americo Borrego MD Family Provider Active Dr. Americo Borrego MD Primary Care Provider Active Team Status: Inactive Member Role Status Dates Dr. Americo Borrego MD Primary Care Provider Active Dr. Sameer Whiteside MD Emergency Provider Active Grain Elevator Motor Starter Relationship Specialty Start Date End Date Americo Borrego MD [address] [place] [address] PCP - General Family Medicine 05/07/15 Americo Borrego MD [address] [place] [address] Family Medicine 05/07/15 Grain Elevator Motor Starter Relationship Specialty Start Date End Date Americo Borrego MD [address] [place] [address] PCP - General Family Medicine 05/07/15 Americo Borrego MD [address] [place] [address] Family Medicine 05/07/15 Grain Elevator Motor Starter Relationship Specialty Start Date End Date Americo Borrego MD [address] [facility] [address] PCP - General Family Medicine 05/07/15 Americo Borrego MD [address] [place] [address] Family Medicine 05/07/15 Grain Elevator Motor Starter Relationship Specialty Start Date End Date Americo Borrego MD [address] [place] [address] PCP - General Family Medicine 05/07/15 Americo Borrego MD [address] [place] [address] Family Medicine 05/07/15 Grain Elevator Motor Starter Relationship Specialty Start Date End Date Americo Borrego MD [address] [place] [address] PCP - General Family Medicine 05/07/15 Americo Borrego MD [address] [place] [address] Family Medicine 05/07/15 Grain Elevator Motor Starter Relationship Specialty Start Date End Date Americo Borrego MD [address] [place] [address] PCP - General Family Medicine 05/07/15 Americo Borrego MD [address] [place] [address] Family Medicine 05/07/15 Grain Elevator Motor Starter Relationship Specialty Start Date End Date Americo Borrego MD [address] [facility] [address] PCP - General Family Medicine 05/07/15 Americo Borrego MD [address] [facility] [place] [address] Family Medicine 05/07/15 Grain Elevator Motor Starter Relationship Specialty Start Date End Date Americo Borrego MD [address] [place] [address] PCP - General Family Medicine 05/07/15 Americo Borrego MD [address] [place] [address] Family Medicine 05/07/15 Grain Elevator Motor Starter Relationship Specialty Start Date End Date Americo Borrego MD [address] [place] [address] PCP - General Family Medicine 05/07/15 Americo Borrego MD [address] [place] [address] Family Medicine 05/07/15 Grain Elevator Motor Starter Relationship Specialty Start Date End Date Americo Borrego MD [address] [place] [address] PCP - General Family Medicine 05/07/15 Americo Borrego MD [address] [place] [address] Family Medicine 05/07/15 Grain Elevator Motor Starter Relationship Specialty Start Date End Date Americo Borrego MD [address] [place] [address] PCP - General Family Medicine 05/07/15 Americo Borrego MD [address] [place] [address] Family Medicine 05/07/15 Team Status: Inactive Member Role Status Dates Dr. Americo Borrego MD Primary Care Provider Active Dr. Bruce Dong DO Emergency Provider Active Grain Elevator Motor Starter Relationship Specialty Start Date End Date Americo Borrego MD [address] [place] [address] PCP - General Family Medicine 05/07/15 Americo Borrego MD [address] [place] [address] Family Medicine 05/07/15 Grain Elevator Motor Starter Relationship Specialty Start Date End Date Americo Borrego MD [address] [place] [address] PCP - General Family Medicine 05/07/15 Americo Borrego MD [address] [place] [address] Family Medicine 05/07/15 Grain Elevator Motor Starter Relationship Specialty Start Date End Date Americo Borrego MD [address] [place] [address] PCP - General Family Medicine 05/07/15 Americo Borrego MD [address] [place] [address] Family Medicine 05/07/15 Grain Elevator Motor Starter Relationship Specialty Start Date End Date Americo Borrego MD [address] [place] [address] PCP - General Family Medicine 05/07/15 Americo Borrego MD [address] [place] [address] Family Medicine 05/07/15 Grain Elevator Motor Starter Relationship Specialty Start Date End Date Americo Borrego MD [address] [facility] [place] [address] PCP - General Family Medicine 05/07/15 Americo Borrego MD [address] [facility] [place] [address] Family Medicine 05/07/15 Grain Elevator Motor Starter Relationship Specialty Start Date End Date Americo Borrego MD [address] [facility] [place] [address] PCP - General Family Medicine 05/07/15 Americo Borrego MD [address] [facility] [place] [address] Family Medicine 05/07/15 Grain Elevator Motor Starter Relationship Specialty Start Date End Date Americo Borrego MD [address] [facility] [place] [address] PCP - General Family Medicine 05/07/15 Americo Borrego MD [address] [facility] [place] [address] Family Medicine 05/07/15 Grain Elevator Motor Starter Relationship Specialty Start Date End Date Americo Borrego MD [address] [place] [address] PCP - General Family Medicine 05/07/15 Americo Borrego MD [address] [place] [address] Family Medicine 05/07/15 Grain Elevator Motor Starter Relationship Specialty Start Date End Date Americo Borrego MD [address] [place] [address] PCP - General Family Medicine 05/07/15 Americo Borrego MD [address] [place] [address] Family Medicine 05/07/15 Grain Elevator Motor Starter Relationship Specialty Start Date End Date Americo Borrego MD [address] [place] [address] PCP - General Family Medicine 05/07/15 Americo Borrego MD [address] [place] [address] Family Medicine 05/07/15 Grain Elevator Motor Starter Relationship Specialty Start Date End Date Americo Borrego MD [address] [place] [address] PCP - General Family Medicine 05/07/15 Americo Borrego MD [address] [place] [address] Family Medicine 05/07/15 Malika Sethi APRN.CNP [address] [place] [address] [facility] 09/23/24 Grain Elevator Motor Starter Relationship Specialty Start Date End Date Americo Borrego MD [address] [facility] [place] [address] PCP - General Family Medicine 05/07/15 Americo Borrego MD [address] [facility] [place] [address] Family Medicine 05/07/15 Malika Sethi APRN.GROUP WORK PROGRAM DIRECTOR [address] [place] [address] [facility] Family [facility] 09/23/24 Dean Goldberg APRN.GROUP WORK PROGRAM DIRECTOR [address] [facility] [place] [address] [facility] 10/02/24 Grain Elevator Motor Starter Relationship Specialty Start Date End Date Americo Borrego MD [address] [place] [address] PCP - General Family Medicine 05/07/15 Americo Borrego MD [address] [facility] [place] [address] Family Medicine 05/07/15 Malika Sethi SLOTTER OPERATOR HELPER.GROUP WORK PROGRAM DIRECTOR [address] [facility] [place] [address] [facility] 09/23/24 Dean Goldberg APRN.GROUP WORK PROGRAM DIRECTOR [address] [facility] [place] [address] [facility] 10/02/24 Grain Elevator Motor Starter Relationship Specialty Start Date End Date Americo Borrego MD [address] [place] [address] PCP - General Family Medicine 05/07/15 Americo Borrego MD [address] [place] [address] Family Medicine 05/07/15 Dean Goldberg APRN.GROUP WORK PROGRAM DIRECTOR [address] [place] [address] [facility] 10/02/24 Grain Elevator Motor Starter Relationship Specialty Start Date End Date Americo Borrego MD [address] [place] [address] PCP - General Family Medicine 05/07/15 Americo Borrego MD [address] [place] [address] Family Medicine 05/07/15 Dean Goldberg APRN.GROUP WORK PROGRAM DIRECTOR [address] [place] [address] [facility] 10/02/24 Team Status: Active Member Role/Relationship Status [...] BE BASED ON THE PRIMARY CLINICAL RECORDS. [facility]. provides no warranty or guarantee of the accuracy or completeness of information in this document.
--- NOTE | 2025-09-20 03:40 | RAD_ITS ---
PROCEDURE: CHEST 1 VIEW (PORTABLE) 09/20/2025 REASON FOR EXAM: SHORTNESS OF BREATH TECHNIQUE: Frontal view of the chest. COMPARISON: 09/19/2025. FINDINGS: Mild bilateral basilar atelectatic pulmonary changes, unchanged. There is no demonstrated pleural abnormality. Normal heart and pericardium. Normal mediastinum and javan. Normal visualized pulmonary arteries. Normal visualized aortic arch and descending thoracic aorta. Normal visualized thoracic spine. Normal visualized ribs, clavicles, and shoulders. There is no demonstrated abnormality of the visualized soft tissue structures of the upper abdomen. RAD/Chest 1 View (Portable) IMPRESSION: Mild bilateral basilar atelectatic pulmonary changes, unchanged. Reading Location: [facility]
[2025-09-20 03:46] LABS: Pro- Brain NATRIURETIC PEPTIDE 271 pg/mL (<=900); Troponin T High Sensitivity 12 ng/L (<=22)
[2025-09-20] MEDS: Ceftriaxone 2 GM in 0.9% Normal Saline (50mL MB+) 50 ML IV (04:04)
--- NOTE | 2025-09-20 04:48 | ED.VIS.DYS ---
HPI History of Present Illness Chief Complaint: Shortness of Breath Narrative Narrative: Patient was seen and examined after presenting to ED for reevaluation I actually just saw him the day prior in the morning for a COPD flare states that his daughter had some sort of viral illness and that he was having similar symptoms although he was having a COPD exacerbation patient ultimately improved after methylprednisolone and breathing treatments and was discharged however he got worse today and so he came back. [facility] Medical History Diverticulitis Femur fracture Rib fracture H. pylori infection Cholecystitis Fatty liver Depression BPH (benign prostatic hyperplasia) DVT (deep venous thrombosis) GERD (gastroesophageal reflux disease) Diverticula of colon HTN (hypertension) COPD (chronic obstructive pulmonary disease) Diabetes mellitus Home Medications ?Medication ?Instructions ?Recorded ?Last Taken ?Type albuterol sulfate 2.5 mg/3 mL 2.5 mg inhalation Q6H PRN PRN Sob 01/03/16 11/18/16 04:00 History (0.083 %) solution for nebulization &/Or Wheezing atorvastatin 40 mg tablet 40 mg PO QHS 01/03/16 08/05/19 History citalopram 20 mg tablet 30 mg PO DAILY 01/03/16 08/06/19 History glimepiride 2 mg tablet 2 mg PO DAILY 01/03/16 08/06/19 History lisinopril 10 mg tablet 10 mg PO DAILY 01/03/16 08/06/19 History fluticasone furoate 100 1 ea IH DAILY ##1 05/25/16 08/06/19 Rx mcg-vilanterol 25 mcg/dose inhalation powder (Breo Ellipta) albuterol sulfate 90 mcg/actuation 2 puff inhalation Q2H PRN PRN 11/20/16 08/06/19 Rx aerosol inhaler (Ventolin HFA) COUGH/WHEEZE ##0 insulin detemir U-100 100 unit/mL 50 units subcut QHS 08/06/19 08/05/19 History (3 mL) subcutaneous pen ibuprofen 800 mg tablet 800 mg PO Q8H PRN Pain 1-10 Or 09/11/20 Unknown History Fever loperamide 2 mg capsule (Imodium 2 mg PO Q4H PRN loose stool #10 12/06/22 Unknown Rx A-D) caps empagliflozin 25 mg tablet 25 mg PO DAILY 05/14/24 Unknown History (Jardiance) insulin lispro 100 unit/mL 30 unit subcut QPM 05/14/24 Unknown History subcutaneous pen blood sugar diagnostic (OneTouch 09/20/25 Unknown History Verio test strips) insulin glargine 100 unit/mL (3 40 unit subcut BID 09/20/25 Unknown History mL) subcutaneous pen (Lantus Solostar U-100 Insulin) insulin glargine-yfgn 100 unit/mL 40 unit subcut BID 09/20/25 Unknown History (3 mL) subcutaneous pen (Semglee (insulin glargine-yfgn) Pen) lisinopril 20 mg tablet 20 mg PO DAILY 09/20/25 Unknown History omeprazole 20 mg capsule,delayed 20 mg PO BID 09/20/25 Unknown History release Allergy/AdvReac Type Severity Reaction Status Date / Time No Known Allergies Allergy Verified 09/20/25 03:13 Social History household members: none Smoking Status: Former smoker substance use type: does not use ROS ROS ED ROS Narrative Pertinent Positives: Recently had fevers cough sick contacts he has shortness of breath history of COPD Pertinent Negatives: Chest pain pressure vomiting diarrhea black or bloody stools The remainder of review of systems negative unless otherwise stated in the HPI above. Systems reviewed including constitutional, psychiatric, cardiovascular, respiratory, integument, HENT, gastrointestinal. EXAM Physical Exam Narrative Exam Narrative: Patient is afebrile hemodynamically stable although diffusely wheezing again audible without even the use of the stethoscope. He has intact MSPs his abdomen is soft nontender nondistended no palpable pulsatile mass no lower extremity edema or calf tenderness Const Vital Signs: 09/20/25 03:10 09/20/25 03:13 09/20/25 03:15 Temperature 98.2 F 98.2 F Temperature Source Oral Oral Pulse Rate 108 H 107 H Respiratory Rate 25 H 22 H Respiratory Effort Short of Breath Respiratory Pattern Tachypnea Blood Pressure 149/88 H 147/81 H Blood Pressure Mean 108 103 Pulse Ox 95 94 Oxygen Delivery Method Room Air Room Air Room Air 09/20/25 03:16 09/20/25 03:24 09/20/25 04:10 Temperature Temperature Source Pulse Rate 105 H 92 Respiratory Rate 20 H 22 H Respiratory Effort Respiratory Pattern Normal Blood Pressure 171/90 H Blood Pressure Mean 117 Pulse Ox 93 Oxygen Delivery Method Room Air Room Air 09/20/25 04:13 09/20/25 05:00 09/20/25 05:31 Temperature 98.5 F 98.5 F Temperature Source Oral Pulse Rate 92 84 92 Respiratory Rate 22 H 21 H 23 H Respiratory Effort Respiratory Pattern Blood Pressure 171/90 H 133/79 H 156/95 H Blood Pressure Mean 117 97 115 Pulse Ox 93 94 95 Oxygen Delivery Method Room Air Room Air MDM MDM MDM Narrative Medical decision making narrative: Nursing notes, triage notes, available previous documentation, and vital signs were reviewed. Any discrepancies noted were addressed. Differential Diagnoses: COPD exacerbation secondary to some sort of viral illness but stilling to consider the possibility of a bacterial pneumonia lower suspicion for PE Interventions: Magnesium sulfate acetaminophen methylprednisolone breathing treatments Antibiotics Given: Ceftriaxone and doxycycline Fluids Given: 1 L normal saline Labs Reviewed: Positive for influenza A no leukocytosis leukopenia anemia but is thrombocytopenic at 119 lactic acidosis of 3.4 troponin of 12 with a proBNP of 271. No electrolyte abnormality bicarb was nearly 20 and anion gap is elevated at 19 but is slightly secondary to the lactic acidosis with a lactic acid of 3.4 no transaminitis Imaging Reviewed: Personally reviewed and interpreted by me: Chest x-ray I do not see any obvious pneumonia or edema pneumothoraces or widened mediastinum EKG: Normal sinus rhythm rate of 98 there is motion artifact but no ST segment elevation. EKG interpretation is noted and agreed to in the EMR. The interpretation of this patient's EKG contributed directly to the care and management of this patient. Previous Documentation Reviewed: Emergency department visit from last night when I saw this patient for similar occurrence however he got worse at home today ED Course: Patient presenting with worsening COPD flare was found to have influenza A patient does have a lactic acidosis I believe he is going to need admission at this point for continued IV steroids we will discuss with hospitalist. 0530: I spoke with the hospitalist Dr. Garcia who was agreeable to admission This note was made utilizing voice recognition software. All attempts were made to correct spelling or other errors prior to note completion. However, due to the fast-paced nature of emergency medicine, some errors may still be present. Lab Data Labs: Laboratory Results - last 24 hr 09/20/25 03:17 WBC 6.2 RBC 5.61 Hgb 15.9 Hct 47.3 MCV 84.3 MCH 28.3 MCHC 33.6 RDW Std Deviation 40.3 RDW Coeff of Nai 13.2 Plt Count 119 L MPV 10.4 Immature Gran % (Auto) 0.500 Neut % (Auto) 72.7 H Lymph % (Auto) 15.9 L Duchesne % (Auto) 10.4 H Eos % (Auto) 0.2 Baso % (Auto) 0.3 Absolute Neuts (auto) 4.5 Absolute Lymphs (auto) 0.98 Nucleated RBC % 0 Sodium 142 Potassium 3.6 Chloride 103 Carbon Dioxide 19.9 L Anion Gap 19 H BUN 14 Creatinine 0.67 L Estim Creat Clear Calc 161.70 Est GFR (MDRD) Non-Af 109 BUN/Creatinine Ratio 20.7 H Glucose 183 H Lactic Acid 3.4 H* Calcium 9.4 Total Bilirubin 0.60 AST 36 ALT 40 Alkaline Phosphatase 79 Troponin T High Sens 12 D NT pro BNP II 271 Total Protein 7.5 Albumin 4.4 Globulin 3.1 Albumin/Globulin Ratio 1.4 Radiography Diagnostic Testing: Clinical Impression(s) from Imaging Studies Chest X-Ray 09/20/25 03:40 IMPRESSION: Mild bilateral basilar atelectatic pulmonary changes, unchanged. Reading Location: [place] [address] Discharge Plan Triage Chief Complaint: Shortness of Breath ED Provider: Susan Stokes Dx/Rx/DC Orders Clinical Impression: Influenza A, COPD exacerbation, Dyspnea Prescriptions: No Action atorvastatin 40 MG tablet 40 mg PO QHS Patient Comments: cholesterol albuterol sulfate 2.5 MG/3 ML solution for nebulization 2.5 mg inhalation Q6H PRN PRN (Reason: Sob &/Or Wheezing) Patient Comments: breathing glimepiride 2 MG tablet 2 mg PO DAILY Patient Comments: diabetes citalopram 20 MG tablet 30 mg PO DAILY Patient Comments: depression lisinopril 10 MG tablet 10 mg PO DAILY Patient Comments: blood pressure fluticasone furoate-vilanterol [Breo Ellipta] 1 EACH blister with device 1 ea IH DAILY Qty: 1 1RF Patient Comments: breathing albuterol sulfate [Ventolin HFA] 1 INHALER inhaler 2 puff inhalation Q2H PRN PRN (Reason: COUGH/WHEEZE) Qty: 0 0RF Patient Comments: breathing insulin detemir U-100 100 UNITS/ML insulin pen 50 units subcut QHS ibuprofen 800 MG tablet 800 mg PO Q8H PRN (Reason: Pain 1-10 Or Fever) loperamide [Imodium A-D] 2 mg capsule 2 mg PO Q4H PRN (Reason: loose stool) Qty: 10 0RF Rx Instructions: administer after each loose stool until symptoms controlled; do not exceed 8 mg per 24 hrs Jardiance 25 mg tablet 25 mg PO DAILY insulin lispro 100 unit/mL insulin pen 30 unit subcut QPM lisinopril 20 mg tablet 20 mg PO DAILY (DME) OneTouch Verio test strips Strip 1 strip MISCELLANEOUS DAILY omeprazole 20 mg capsule,delayed release(DR/EC) 20 mg PO BID insulin glargine [Lantus Solostar U-100 Insulin] 100 unit/mL (3 mL) insulin pen 40 unit subcut BID insulin glargine-yfgn [Semglee(insulin glarg-yfgn)Pen] 100 unit/mL (3 mL) insulin pen 40 unit subcut BID Primary Care Provider: Vinicio Wright Referrals: Vinicio Wright MD [Primary Care Provider, Internal Medicine] Print Language: Argentine
[2025-09-20 05:16] LABS: AST(SGOT) 36 U/L (<=37); Alanine Aminotransfer ALT/SGPT 40 U/L (<=46); Albumin, Serum 4.4 g/dL (3.5-5.0); Alkaline Phosphatase 79 U/L (40-129); Anion Gap 19 (5-15); BUN 14 mg/dL (4-19); BUN/Creat Ratio 20.7 RATIO (10-20); Calcium,Total 9.4 mg/dL (7.6-11.0); Carbon Dioxide 19.9 mmol/L (21.0-32.0); Chloride 103 mmol/L (98-108); Estimated Creatinine Clearance 161.70 ml/min (50-250); Globulin 3.1 g/dL (2.2-4.2); Glucose 183 mg/dL (70-99); Potassium 3.6 mmol/L (3.3-5.1)
--- OUTSIDE RECORDS SUMMARY | 2025-09-20 05:57 | XMS RPT_ITS | CCD ---
Author Organization [facility] Care Team Providers Care Child And Family Therapist Name Role Phone Americo Borrego MD Unavailable Americo Borrego MD Primary Care Provider Americo Borrego MD Unavailable Americo Borrego MD Primary Care Provider Navdeep MEDICAL BILLING SUPERVISOR.Malika BORRERO Unavailable Luther MEDICAL BILLING SUPERVISOR.Dean BORRERO Unavailable AMERICO BORREGO Attending Unavailable AMERICO [...] by mouth every 8 hours as needed. [id number] 200 actuat albuterol 0.09 mg/actuat metered dose [...] Comment on above: [facility] tablet [facility] daily at [facility]. azithromycin 250 mg oral [...] on above: Take 2 tablets by mo [facility] once daily for 1 day, THEN [...] 2 diabetes mellitus without complication, 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 long-term insulin use (HCC) Inject 20 Units subcutaneously [...] Comment on above: Take 1 tablet by [facility] once daily. omeprazole 20 mg delayed release oral capsule (20 sources) Proton Pump Inhibitor Start: 2 End: take 1 capsule by mouth twice daily before mealtime omeprazole (PRILOSEC) 20 mg capsule Take 1 capsule by mouth two times a day. 1/2 hr before meal. 60 capsule 09/28/2024 Active Start: 05-29-2021 take 1 capsule by [facility] twice daily before mealtime omeprazole (PRILOSEC) 20 mg capsule Take 1 capsule by mouth twice daily. 1/2 hr before meal. 60 capsule 11 05/29/2021 Active Start: 08-06-2019 take 1 capsule by [facility] twice daily Start: 08-06-2019 take 20 mg by mouth once daily Omeprazole Active 20 MG PO DAILY August 06, 2019 12:00am Start: 01-03-2016 End: 05-27-2016 take 1 capsule by mouth once daily Omeprazole 20 MG capsule Discontinued 20 mg PO DAILY January 03, 2016 12:00am May 27, 2016 8:18am Comment on above: Take 1 capsule by [facility] twice daily. 1/2 hr before meal. ondansetron [...] on above: Take 2 tablets by mo [facility] once daily for 5 days. Take [facility] by [facility] once daily for 4 days. Take daily [...] Comment on above: Take [facility] daily with breakfast. doxycycline monohydrate 100 mg [...] on above: Take 1 capsule by mo [facility] two times a day for 5 [...] 2 diabetes mellitus without complication, 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 long-term insulin use (HCC) Inject 30 Units subcutaneously [...] 2 diabetes mellitus without complication, 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 long-term insulin use (HCC) Inject 40 Units subcutaneously two times a day. 10 Each 06/06/2024 01/08/2025 Discontinued (Changing Therapy/Dosage Form) Start: 11-28-2023 End: 05-22-2024 insulin detemir U-100 (LEVEM IR FLEXTOUCH U-100 INSULIN) 100 unit/mL (3 mL) injection pen Indications: Type 2 diabetes mellitus without complication, 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 long-term insulin use (HCC) Inject 45 Units subcutaneously two times a day. 8 Each 5 11/28/2023 05/22/2024 Discontinued Start: 04-04-2023 End: 11-26-2023 insulin detemir U-100 (LEVEM IR FLEXTOUCH U-100 INSULIN) 100 unit/mL (3 mL) injection pen Indications: Type 2 diabetes mellitus without complication, 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 long-term insulin use (HCC) Inject 45 Units subcutaneously [...] Coronary atherosclerosis; Translations: [Atherosclerotic heart disease of [place] coronary artery without angina pectoris] Onset: 4 [...] 09-15-2010 09-15-2010 Episodic Other aftercare (1 source) buttermaker (current) use of insulin; Translations: [Type 2 [...] Absolute Lymph 2.94 X10 3/uL Normal 0.83-4.51 [facility] Comment on above: Performed By: #### L 100.0100, L500.4050 #### [facility] [address] [place], [address] Absolute Neut 3.6 X10 3/uL Normal 2.0-7.7 [facility] Comment on above: Performed By: #### L 100.0100, L500.4050 #### [facility] [address] [place], [address] Basophils/100 WBC (Bld) 0.8 % Normal 0-1 [facility] Comment on above: Performed By: #### L 100.0100, L500.4050 #### [facility] [address] [place], [address] Eosinophils/100 WBC (Bld) 5.5 % High 0-5 [facility] Comment on above: Performed By: #### L 100.0100, L500.4050 #### [facility] [address] [place], [address] Erythrocyte distribution width (RBC) [Ratio] 12.5 % Normal 11.6-14.6 [facility] Comment on above: Performed By: #### L 100.0100, L500.4050 #### [facility] [address] [place], [address] Hematocrit (Bld) [Volume fraction] 47.3 % Normal 40-54 [facility] Comment on above: Performed By: #### L 100.0100, L500.4050 #### [facility] [address] [place], [address] Hemoglobin (Bld) [Mass/Vol] 16.3 g/dL Normal 13.0-16.5 [facility] Comment on above: Performed By: #### L 100.0100, L500.4050 #### [facility] [address] [place], [address] IG% 0.400 Normal 0.0-0.9 [facility] Comment on above: Result Comment: IG% - Immature Granulocytes (promyelocytes, myelocytes and metamyelocytes) > 1% indicates that a LEFT SHIFT is Present. Performed By: #### L 100.0100, L500.4050 #### [facility] [address] [place], [address] Lymphocytes/100 WBC (Bld) 39.5 % Normal 19-41 [facility] Comment on above: Performed By: #### L 100.0100, L500.4050 #### [facility] [address] [place], [address] MCH (RBC) [Entitic mass] 28.3 pg Normal 27.0-32.0 [facility] Comment on above: Performed By: #### L 100.0100, L500.4050 #### [facility] [address] [place], [address] MCHC (RBC) [Mass/Vol] 34.5 g/dL Normal 32-36 [facility] Comment on above: Performed By: #### L 100.0100, L500.4050 #### [facility] [address] [place], [address] MCV (RBC) [Entitic vol] 82.3 fL Normal 80-94 [facility] Comment on above: Performed By: #### L 100.0100, L500.4050 #### [facility] [address] [place], [address] Monocytes/100 WBC (Bld) 6.0 % Normal 0-10 [facility] Comment on above: Performed By: #### L 100.0100, L500.4050 #### [facility] [address] [place], [address] Neutrophils/100 WBC (Bld) 47.8 % Normal 47-70 [facility] Comment on above: Performed By: #### L 100.0100, L500.4050 #### [facility] [address] [place], [address] Nucleated RBC (Bld) [#/Vol] 0 10*3/uL Normal 0-5 [facility] Comment on above: Performed By: #### L 100.0100, L500.4050 #### [facility] [address] [place], [address] Platelet mean volume (Bld) [Entitic vol] 10.9 fL Normal 6.2-12.0 [facility] Comment on above: Performed By: #### L 100.0100, L500.4050 #### [facility] [address] [place], [address] Platelets (Bld) [#/Vol] 120 10*3/uL Low 150-450 [facility] Comment on above: Performed By: #### L 100.0100, L500.4050 #### [facility] [address] [place], [address] RBC (Bld) [#/Vol] 5.75 10*6/uL Normal 4.6-6.2 [facility] Comment on above: Performed By: #### L 100.0100, L500.4050 #### [facility] [address] [place], [address] RDW SD 37.4 fl Normal 35.1-43.9 [facility] Comment on above: Performed By: #### L 100.0100, L500.4050 #### [facility] [address] [place], [address] WBC (Bld) [#/Vol] 7.5 10*3/uL Normal 4.4-11.0 [facility] Comment on above: Performed By: #### L 100.0100, L500.4050 #### [facility] [address] [place], [address] Chest PA and Lateralon 08-18 Chest PA and Lateral [facility] Imaging Services [address] [place] [address] Chest PA and Lateral MR#: [id number] Acct: [id number] Name: ELIEL SOUZA Rep #: [id number] : 1970 M 55 From: Vikas Mcdonald MD PCP: Dr. Americo Borrego MD Status: DEP ER Study: Chest PA and Lateral Date of Exam: 08/18/25 Exam# [id number] Ordering Dr: Sameer Whiteside MD PROCEDURE: CHEST PA AND LATERAL 08/18/2025 REASON FOR EXAM: PRODUCTIVE COUGH, HISTORY OF COPD TECHNIQUE: Procedure Code: RADCXR Modality: DX Procedure: CHEST PA AND LATERAL COMPARISON: 07/06/2025. FINDINGS: The lungs are clear. The cardiomediastinal silhouette appears unremarkable. No acute osseous abnormality. RAD/Chest PA and Lateral IMPRESSION: As above. Reading Location: [id number] CC: Dr. Americo Borrego MD; Dr. Sameer Whiteside MD Door Machine Operator: Signed Normal [facility] Comprehensive Metabolic Prof ilon 08-18-2025 Albumin [Mass/Vol] 4.2 g/dL Normal 3.5-5.0 [facility] Comment on above: Performed By: #### L 100.0100, L500.4050 #### [facility] [address] [place], [address] Albumin/Globulin [Mass ratio] 1.5 {ratio} Normal 0.9-2.4 [facility] Comment on above: Performed By: #### L 100.0100, L500.4050 #### [facility] [address] [place], [address] ALK PHOS 93 U/L Normal 40-129 [facility] Comment on above: Performed By: #### L 100.0100, L500.4050 #### [facility] [address] [place], [address] ALT [Catalytic activity/Vol] 31 U/L Normal <=46 [facility] Comment on above: Performed By: #### L 100.0100, L500.4050 #### [facility] [address] [place], [address] AST [Catalytic activity/Vol] 28 U/L Normal <=37 [facility] Comment on above: Performed By: #### L 100.0100, L500.4050 #### [facility] [address] [place], [address] Bilirubin [Mass/Vol] 0.50 mg/dL Normal 0.00-1.30 [facility] Comment on above: Performed By: #### L 100.0100, L500.4050 #### [facility] [address] [place], [address] BUN/CRE 32.7 RATIO High 10-20 [facility] Comment on above: Performed By: #### L 100.0100, L500.4050 #### [facility] [address] [place], [address] Calcium [Mass/Vol] 9.5 mg/dL Normal 7.6-11.0 [facility] Comment on above: Performed By: #### L 100.0100, L500.4050 #### [facility] [address] [place], [address] Chloride [Moles/Vol] 104 mmol/L Normal 98-108 [facility] Comment on above: Performed By: #### L 100.0100, L500.4050 #### [facility] [address] [place], [address] CO2 [Moles/Vol] 19.8 mmol/L Low 21.0-32.0 [facility] Comment on above: Performed By: #### L 100.0100, L500.4050 #### [facility] [address] [place], [address] Creatinine [Mass/Vol] 0.70 mg/dL Normal 0.70-1.20 [facility] Comment on above: Performed By: #### L 100.0100, L500.4050 #### [facility] [address] [place], [address] ECRCL 154.00 ml/min Normal 50-250 [facility] Comment on above: Performed By: #### L 100.0100, L500.4050 #### [facility] [address] [place], [address] GAP 14 Normal 5-15 [facility] Comment on above: Performed By: #### L 100.0100, L500.4050 #### [facility] [address] [place], [address] GFR/1.73 sq M.predicted among non-blacks MDRD (S/P/Bld) [Vol rate/Area] 108 mL/min/{1.73_m2} Normal >60 [facility] Comment on above: Result Comment: mL/m in/1.73m2 CKD-EPI Creatinine Equation (2020) Performed By: #### L 100.0100, L500.4050 #### [facility] [address] [place], [address] Globulin (S) [Mass/Vol] 2.9 g/dL Normal 2.2-4.2 [facility] Comment on above: Performed By: #### L 100.0100, L500.4050 #### [facility] [address] [place], [address] Glucose [Mass/Vol] 216 mg/dL High 70-99 [facility] Comment on above: Performed By: #### L 100.0100, L500.4050 #### [facility] [address] [place], [address] Potassium [Moles/Vol] 3.9 mmol/L Normal 3.3-5.1 [facility] Comment on above: Performed By: #### L 100.0100, L500.4050 #### [facility] [address] [place], [address] Sodium [Moles/Vol] 138 mmol/L Normal 133-145 [facility] Comment on above: Performed By: #### L 100.0100, L500.4050 #### [facility] [address] [place], [address] T PROT 7.0 g/dL Normal 5.9-8.4 [facility] Comment on above: Performed By: #### L 100.0100, L500.4050 #### [facility] [address] [place], [address] Urea nitrogen [Mass/Vol] 23 mg/dL High 4-19 [facility] Comment on above: Performed By: #### L 100.0100, L500.4050 #### [facility] [address] [place], [address] Emergency Department Summary on 08-18-2025 Emergency Department Summary [facility] Medical Records Department [address] [place] [address] Emergency Department Summary 08/18/25 MR#: [id number] Acct: [id number] Name: ELIEL SOUZA Rep #: [id number] : 1970 55 From: Sameer Whiteside MD PCP: Dr. Aemrico Borrego MD Status:REG ER Location: ED HPI [...] or change (more content not included)... Normal [facility] 12 Lead EKGon 07-06-2025 12 Lead EKG [facility] Cardiovascular Services [address] [place] [address] 12 Lead EKG 07/06/25 1550 MR#: [id number] Acct: [id number] Name: ELIEL SOUZA Rep #: [id number] : 1970 55 From: Aneudy Mathew MD [...] Normal ECG Confirmed by ANEUDY MATHEW MD ([id number]), manuscript editor TANESHA ROJO ([id number]) on 07/08/2025 8:28:35 AM Referred By: Confirmed By: ANEUDY MATHEW MD 07/08/25 0828 Date Aneudy Mathew MD CC: Dr. Melissa Holly DO; Dr. Americo Borrego MD Signed Normal [facility] Chest PA and Lateralon 07-06 Chest PA and Lateral [facility] Imaging Services [address] [place], [place] [address] Chest PA and Lateral MR#: [id number] Acct: [id number] Name: ELIEL SOUZA Rep #: [id number] : 1970 M 55 From: Maged Archuleta MD PCP: Dr. Americo Borrego MD Status: REG ER Study: Chest PA and Lateral Date of Exam: 07/06/25 Exam# [id number] Ordering Dr: Melissa Holly DO PROCEDURE: CHEST [...] - Other findings discussed above. Reading Location: [id number] CC: Dr. Melissa Holly DO; Dr. Americo Borrego MD Door Machine Operator: Signed [facility] Electrocardiogram reportOrde red By: Aneudy Mathew on 07-06-2025 EKG study [facility] Services [address] [place] [address] 12 Lead EKG 07/06/25 1550 MR#: [id number] Acct: [id number] Name: ELIEL SOUZA Rep #:[id number] : 1970 55 From: Aneudy Mathew MD [...] Normal ECG Confirmed by WILLIAMS MIRANDA, ANEUDY ([id number]), manuscript editor TANESHA ROJO ([id number]) on 07/08/2025 8:28:35 AM Referred By: Confirmed By: ANEUDY MATHEW MD 07/08/25 0828 Date _ Aneudy Mathew MD CC: Dr. Melissa Holly DO; Dr. Americo Borrego MD ~ Signed [facility] Other Emergency Department Summary on 07-06-2025 Emergency Department Summary [facility] Medical Records Department [address] [place] [address] Emergency Department Summary 07/06/25 MR#: [id number] Acct: [id number] Name: ELIEL SOUZA Rep #: [id number] : 1970 55 From: Melissa Holly DO [...] complaints or concerns per at this time. [facility] Medical History Diverticulitis Femur fracture Rib fracture [...] Depth Norm (more content not included)... Normal [facility] CNOVon 04-12-2025 [facility] Office Visit (FAMPWS) ELIEL SOUZA ([id number]) 1970 M Date Time Provider Department 04/12/25 [...] and Jardiance 25 mg daily. [facility] HTN: Denies checking BP at home. No [...] tx as needed. Not following with any shirring tender's. Does get Shortness of Breath if he [...] HISTORY Diagnosis Date CAD (coronary artery disease), [place] coronary artery 2014 No PCI indicated. no machine cage maker needed Closed fracture of femur ([facility]) 11/2010 Depressive disorder, not elsewhere classified Diabetes mellitus type 2 in obese DVT of lower extremity (deep venous thrombosis) ([facility]) 11/2010 left Esophageal reflux Essential hypertension CATY (obstructive sleep apnea) CPAP needs another sleep study machine set too high Pelvic fracture ([facility]) Seasonal allergic rhinitis Unspecified asthma(493.90) Diagnosed in 20s. Previous Surgical History PAST SURGICAL HISTORY Procedure Laterality Date COLONOSCOPY FLX DX W/COLLJ SPEC WHEN PFRMD 11/04/10 Normal colon COLONOSCOPY FLX DX W/COLLJ SPEC WHEN PFRMD 01/21/16 few diverticula EGD TRANSORAL BIOPSY SINGLE/MULTIPLE 11/04/10 duodenitis EGD TRANSORAL BIOPSY SINGLE/MULTIPLE 01/21/16 minimal gastritis EXC TUMOR SUBQ [facility],PERCUTANEOUS 2013 Cardiac cath, L [...] day. insul (more content not included)... Normal [facility] Comprehensive metabolic 2000 panelon 04-06-2025 Albumin [Mass/Vol] 4.4 g/dL Normal 3.9-4.9 [facility] Comment on above: Order Comment: Speci men Type: BLOOD SPECIMENOrdering Facility: [facility] Address: [address] [id number] Performed By: #### 2 4331-1, ####[facility] LABCLIA [id number] [place] [address] [place] ALP [Catalytic activity/Vol] 106 U/L Normal 38-113 [facility] Comment on above: Order Comment: Speci men Type: BLOOD SPECIMENOrdering Facility: [facility] Address: [address] [id number] Performed By: #### 2 4331-1, ####[facility] [id number] [address] [address] [place] ALT [Catalytic activity/Vol] 44 U/L Normal 10-54 [facility] Comment on above: Order Comment: Speci men Type: BLOOD SPECIMENOrdering Facility: [facility] Address: [address] [place] [address] Performed By: #### 2 4331-1, 64783-2 ####[facility] [id number] [address] [place] [address] [place] Anion gap [Moles/Vol] 15 mmol/L Normal 8-15 [facility] Comment on above: Order Comment: Speci men Type: BLOOD SPECIMENOrdering Facility: [facility] Address: [address] [place], [place] [address] Performed By: #### 2 4331-1, 14581-9 ####[facility] [id number] [address] [address] [place] AST [Catalytic activity/Vol] 38 U/L Normal 14-40 [facility] Comment on above: Order Comment: Speci men Type: BLOOD SPECIMENOrdering Facility: [facility] Address: [address] [place], [place] [address] Performed By: #### 2 4331-1, ####[facility] [id number] [address] [address] [place] Bilirubin [Mass/Vol] 0.7 mg/dL Normal 0.2-1.3 [facility] Comment on above: Order Comment: Speci men Type: BLOOD SPECIMENOrdering Facility: [facility] Address: [address] [place] [address] Performed By: #### 2 4331-1, 03288-9 ####[facility] [id number] [address] [address] [place] Calcium [Mass/Vol] 10.1 mg/dL Normal 8.5-10.2 [facility] Comment on above: Order Comment: Speci men Type: BLOOD SPECIMENOrdering Facility: [facility] Address: [address] [place] [address] Performed By: #### 2 4331-1, 52224-4 ####[facility] [id number] [address] [address] [place] Chloride [Moles/Vol] 99 mmol/L Normal 98-107 [facility] Comment on above: Order Comment: Speci men Type: BLOOD SPECIMENOrdering Facility: [facility] Address: [address] [place] [address] Performed By: #### 2 4331-1, 60735-3 ####[facility] LABIA [id number] [place] [id number] [place] CO2 [Moles/Vol] 20 mmol/L Low 22-30 [facility] Comment on above: Order Comment: Speci men Type: BLOOD SPECIMENOrdering Facility: [facility] Address: [address] [place] [address] Performed By: #### 2 4331-1, 15305-8 ####[facility] [id number] [address] [address] [place] Creatinine [Mass/Vol] 0.60 mg/dL Low 0.73-1.22 [facility] Comment on above: Order Comment: Speci men Type: BLOOD SPECIMENOrdering Facility: [facility] Address: [address] [place] [address] Performed By: #### 2 4331-1, 65459-9 ####[facility] LABIA [id number] [address] [address] [place] Creatinine and Glomerular filtration rate.predicted panel (S/P/Bld) 113 mL/min/1.73m??? Normal >=60 [facility] Comment on above: Order Comment: Speci men Type: BLOOD SPECIMENOrdering Facility: [facility] Address: [address] [place] [address] Result Comment: Tia mated Glomerular Filtration Rate [...] actual GFR. Performed By: #### 2 4331-, ####[facility] [id number] [address] [address] [place] Glucose [Mass/Vol] 245 mg/dL High 74-99 [facility] Comment on above: Order Comment: Osmin lopez Type: BLOOD SPECIMENOrdering Facility: [facility] Address: [address] [place] [address] Result Comment: The [place] Diabetes Association (ADA) provides guidance for cutoff [...] Standards of Medical Care in Diabetes 2016, [place] [employer] Association. Diabetes Care. 2016.39(Suppl 1). Performed By: #### 2 433-, ####[facility] [id number] [address] [address] [place] Potassium [Moles/Vol] 5.1 mmol/L Normal 3.7-5.1 [facility] Comment on above: Order Comment: Osmin lopez Type: BLOOD SPECIMENOrdering Facility: [facility] Address: [address] [place] [address] Performed By: #### 2 433-, ####[facility]CL[facility] [id number] [address] [address] [place] Protein [Mass/Vol] 8.0 g/dL Normal 6.3-8.0 [facility] Comment on above: Order Comment: Speci men Type: BLOOD SPECIMENOrdering Facility: [facility] Address: [address] [place] [address] Performed By: #### 2 4331-1, ####[facility]CL[facility] [id number] [facility] [address] [address] [place] Sodium [Moles/Vol] 134 mmol/L Low 136-144 [facility] Comment on above: Order Comment: Speci men Type: BLOOD SPECIMENOrdering Facility: [facility] Address: [address] [place] [address] Performed By: #### 2 4331-1, ####[facility]CLIA [id number] [place] [address] [place] Urea nitrogen [Mass/Vol] 24 mg/dL Normal 9-24 [facility] Comment on above: Order Comment: Speci men Type: BLOOD SPECIMENOrdering Facility: [facility] Address: [address] [place] [address] Performed By: #### 2 4331-1, ####[facility]CL[facility] [id number] [facility] [address] [place] [address] [place] HbA1c (Bld)on 04-06-2025 Average glucose Estimated from glycated hemoglobin (Bld) [Mass/Vol] 174 mg/dL Normal [facility] Comment on above: Order Comment: Speci men Type: BLOOD SPECIMENOrdering Facility: [facility] Address: [address] [place] [address] Result Comment: eAG: (Estimated average glucose) is a calculated value from HgbA1c and is commercial representative of the average blood glucose level in the last 2-3 month period. Performed By: #### 5 5454-3 ####[facility] [id number] [address] [place] [address] [place] HbA1c (Bld) [Mass fraction] 7.7 % High 4.3-5.6 [facility] Comment on above: Order Comment: Osmin lopez Type: BLOOD SPECIMENOrdering Facility: [facility] Address: [address] [place] [address] Result Comment: [place] Diabetes Association guidelines indicate that patients with HgbA1c in the range 5.7-6.4% are at increased risk for development of diabetes, and intervention by lifestyle modification may be beneficial. HgbA1c greater or equal to 6.5% is considered diagnostic of diabetes. Performed By: #### 5 5454-3 ####[facility] LABCLIA [id number] [place] [id number] [facility] Lipid 1996 panelon 5 Cholesterol [Mass/Vol] 201 mg/dL High <200 [facility] Comment on above: Order Comment: Osmin lopez Type: BLOOD SPECIMENOrdering Facility: [facility] Address: [address] [place] [address] Result Comment: <200 mg/dL, Desirable 200-239 mg/dL, Borderline high >239 mg/dL, High Performed By: #### 2 4331-1, 74875-1 ####[facility] LABCLIA [id number] [address] [place] [address] [place] [facility] Cholesterol in HDL [Mass/Vol] 29 mg/dL Low >39 [facility] Comment on above: Order Comment: Osmin lopez Type: BLOOD SPECIMENOrdering Facility: [facility] Address: [address] [place] [address] Result Comment: 40-5 9 mg/dL, Acceptable >59 mg/dL, High: Negative risk factor for coronary heart disease <40 mg/dL, Low: Positive risk factor for coronary heart disease Performed By: #### 2 4331-1, 36963-9 ####[facility] LABCLIA [id number] [address] [place] [address] [facility] Cholesterol in LDL [Mass/Vol] 116 mg/dL High <100 [facility] Comment on above: Order Comment: Osmin men Type: BLOOD SPECIMENOrdering Facility: [facility] Address: [address] [place] [address] Result Comment: <100 mg/dL, Optimal 100-129 mg/dL, Near optimal/above optimal 130-159 mg/dL, Borderline high 160-189 mg/dL, High >189 mg/dL, Very high Secondary prevention optimal LDL Cholesterol levels are recommended to be <70 mg/dL LDL cholesterol is calculated using the Baig-NIH equation. Performed By: #### 2 433-, ####[facility] LABCLIA [id number] [address] [address] [place] Cholesterol in LDL/Cholesterol in HDL [Mass ratio] 4.00 {ratio} High <2.54 [facility] Comment on above: Order Comment: Osmin men Type: BLOOD SPECIMENOrdering Facility: [facility] Address: [address] [place] [address] Result Comment: Refe rence: 1. National Cholesterol Education Program ATP III Guideline At-A-Glance Quick Desk Reference: National Heart, Lung, and Blood [place]. National Institutes of Health. 2001: NIH Publication No. 01-3305. 2. An International Atherosclerosis Society position paper: global recommendations for the management of dyslipidemia: executive summary, Atherosclerosis. 2014: 232(2):410-413. Performed By: #### 2 433-, ####[facility] LABCLIA [id number] [address] [address] [place] Cholesterol in VLDL [Mass/Vol] 55 mg/dL High <30 [facility] Comment on above: Order Comment: Manni john Type: BLOOD SPECIMENOrdering Facility: [facility] Address: [address] [place] [address] Performed By: #### 2 433-, ####[facility] LABCLIA [id number] [address] [address] [place] Cholesterol non HDL [Mass/Vol] 172 mg/dL High <130 [facility] Comment on above: Order Comment: Speci men Type: BLOOD SPECIMENOrdering Facility: [facility] Address: [address] [place] [address] Result Comment: <130 mg/dL, Optimal 130-159 mg/dL, Near optimal/above optimal 160-189 mg/dL, Borderline high 190-219 mg/dL, High >219 mg/dL, Very high Secondary prevention optimal non HDL Cholesterol levels are recommended to be <100 mg/dL Performed By: #### 2 4331-1, 02200-8 ####[facility] LABCLIA [id number] [place] [address] [place] Cholesterol.total/Cholest domenic in HDL [Mass ratio] 6.93 {ratio} High <5.10 [facility] Comment on above: Order Comment: Speci men Type: BLOOD SPECIMENOrdering Facility: [facility] Address: [address] [place] [address] Performed By: #### 2 433-1, 42442-1 ####[facility] LABCLIA [id number] [place] [address] [place] FASTING TIME 10 hrs Normal [facility] Comment on above: Order Comment: Speci men Type: BLOOD SPECIMENOrdering Facility: [facility] Address: [address] [place] [address] Performed By: #### 2 4331-1, 14170-3 ####[facility] LABCLIA [id number] [place] [id number] [place] Triglyceride [Mass/Vol] 318 mg/dL High <150 [facility] Comment on above: Order Comment: Speci men Type: BLOOD SPECIMENOrdering Facility: [facility] Address: [address] [place] [address] Result Comment: <150 mg/dL, Normal 150-199 mg/dL, Borderline high 200-499 mg/dL, High >499 mg/dL, Very high Performed By: #### 2 433-1, 18653-5 ####[facility] LABCLIA [id number] JIGAR ROSALES [address] [address] [place] CNOVon 01-08-2025 CNOV Office Visit (FAMPWS) ELIEL SOUZA ([id number]) 1970 M Date Time Provider Department 01/08/25 11:00 [facility] During your visit today, we recorded [...] HISTORY Diagnosis Date CAD (coronary artery disease), [place] coronary artery 2014 No PCI indicated. no machine cage maker needed Closed fracture of femur ([facility]) 11/2010 Depressive disorder, not elsewhere classified Diabetes mellitus type 2 in obese DVT of lower extremity (deep venous thrombosis) ([facility]) 11/2010 left Esophageal reflux Essential hypertension CATY (obstructive sleep apnea) CPAP needs another sleep study machine set too high Pelvic fracture ([facility]) Seasonal allergic rhinitis Unspecified asthma(493.90) Diagnosed [...] daily. Take (more content not included)... Normal [facility] CBC W Auto Differential pane l (Bld)on 12-22-2024 Basophils (Bld) [#/Vol] 0.07 10*3/uL Normal <0.11 [facility] Comment on above: Order Comment: Speci men Type: BLOOD SPECIMENOrdering Facility: [facility] Address: [address] [place] [address] Performed By: #### 5 7021-8 ####[facility] LABCLIA [id number] [place] [address] [place] Basophils/100 WBC (Bld) 0.9 % Normal [facility] Comment on above: Order Comment: Speci men Type: BLOOD SPECIMENOrdering Facility: [facility] Address: [address] [place] [address] Performed By: #### 5 7021-8 ####[facility] LABCLIA [id number] [place] [address] [place] Differential cell count method Nom (Bld) Auto Normal [facility] Comment on above: Order Comment: Speci men Type: BLOOD SPECIMENOrdering Facility: [facility] Address: [address] [place] [address] Performed By: #### 5 7021-8 ####[facility] LABCLIA [id number] [address], [place] [address] [place] Eosinophils (Bld) [#/Vol] 0.40 10*3/uL Normal <0.46 [facility] Comment on above: Order Comment: Speci men Type: BLOOD SPECIMENOrdering Facility: [facility] Address: [address] [place] [address] Performed By: #### 5 7021-8 ####[facility] LABCLIA [id number] [address], [place] [address] [place] Eosinophils/100 WBC (Bld) 5.3 % Normal [facility] Comment on above: Order Comment: Speci men Type: BLOOD SPECIMENOrdering Facility: [facility] Address: [address] [place] [address] Performed By: #### 5 7021-8 ####[facility] LABCLIA [id number] [address], [place] [address] [place] Erythrocyte distribution width (RBC) [Ratio] 13.2 % Normal 11.5-15.0 [facility] Comment on above: Order Comment: Speci men Type: BLOOD SPECIMENOrdering Facility: [facility] Address: [address] [place] [address] Performed By: #### 5 7021-8 ####[facility] LABCLIA [id number] [address], [place] [address] [place] Hematocrit (Bld) [Volume fraction] 50.0 % Normal 39.0-51.0 [facility] Comment on above: Order Comment: Speci men Type: BLOOD SPECIMENOrdering Facility: [facility] Address: [address] [place] [address] Performed By: #### 5 7021-8 ####[facility] LABCLIA [id number] [address], [facility] [place] Hemoglobin (Bld) [Mass/Vol] 16.7 g/dL Normal 13.0-17.0 [facility] Comment on above: Order Comment: Speci men Type: BLOOD SPECIMENOrdering Facility: [facility] Address: [address] [place] [address] Performed By: #### 5 7021-8 ####[facility] LABCLIA [id number] [place] [address] [place] Immature granulocytes (Bld) [#/Vol] 0.05 10*3/uL Normal <0.10 [facility] Comment on above: Order Comment: Speci men Type: BLOOD SPECIMENOrdering Facility: [facility] Address: [address] [place] [address] Performed By: #### 5 7021-8 ####[facility] LABCLIA [id number] [place] [address] [place] Immature granulocytes/100 WBC (Bld) 0.7 % Normal [facility] Comment on above: Order Comment: Speci men Type: BLOOD SPECIMENOrdering Facility: [facility] Address: [address] [place] [address] Performed By: #### 5 7021-8 ####[facility] LABCLIA [id number] [place] [address] [place] Lymphocytes (Bld) [#/Vol] 2.93 10*3/uL Normal 1.00-4.0 0 [facility] Comment on above: Order Comment: Speci men Type: BLOOD SPECIMENOrdering Facility: [facility] Address: [address] [place] [address] Performed By: #### 5 7021-8 ####[facility] LABCLIA [id number] [place] [address] [place] Lymphocytes/100 WBC (Bld) 39.2 % Normal [facility] Comment on above: Order Comment: Speci men Type: BLOOD SPECIMENOrdering Facility: [facility] Address: [address] [place] [address] Performed By: #### 5 7021-8 ####[facility] LABIA [id number] [address] [place] [facility] MCH (RBC) [Entitic mass] 28.9 pg Normal 26.0-34.0 [facility] Comment on above: Order Comment: Speci men Type: BLOOD SPECIMENOrdering Facility: [facility] Address: [address] [place] [address] Performed By: #### 5 7021-8 ####[facility] LABIA [id number] [place] [address] [place] MCHC (RBC) [Mass/Vol] 33.4 g/dL Normal 30.5-36.0 [facility] Comment on above: Order Comment: Speci men Type: BLOOD SPECIMENOrdering Facility: [facility] Address: [address] [place] [address] Performed By: #### 5 7021-8 ####[facility] [id number] [place] [address] [place] MCV (RBC) [Entitic vol] 86.7 fL Normal 80.0-100.0 [facility] Comment on above: Order Comment: Speci men Type: BLOOD SPECIMENOrdering Facility: [facility] Address: [address] [place] [address] Performed By: #### 5 7021-8 ####[facility] LABIA [id number] [place] [address] [place] Monocytes (Bld) [#/Vol] 0.46 10*3/uL Normal <0.87 [facility] Comment on above: Order Comment: Speci men Type: BLOOD SPECIMENOrdering Facility: [facility] Address: [address] [place] [address] Performed By: #### 5 7021-8 ####[facility] LABIA [id number] [address] [place] [address] [place] Monocytes/100 WBC (Bld) 6.1 % Normal [facility] Comment on above: Order Comment: Speci men Type: BLOOD SPECIMENOrdering Facility: [facility] Address: [address] [place] [address] Performed By: #### 5 7021-8 ####[facility] LABCLIA [id number] [address], [place] [address] [place] Neutrophils (Bld) [#/Vol] 3.57 10*3/uL Normal 1.45-7.5 0 [facility] Comment on above: Order Comment: Speci men Type: BLOOD SPECIMENOrdering Facility: [facility] Address: [address] [place] [address] Performed By: #### 5 7021-8 ####[facility] LABCLIA [id number] [place] [address] [place] Neutrophils/100 WBC (Bld) 47.8 % Normal [facility] Comment on above: Order Comment: Speci men Type: BLOOD SPECIMENOrdering Facility: [facility] Address: [address] [place] [address] Performed By: #### 5 7021-8 ####[facility] LABCLIA [id number] [place] [address] [place] Nucleated RBC (Bld) [#/Vol] 10*3/uL Normal <0.01 [facility] Comment on above: Order Comment: Speci men Type: BLOOD SPECIMENOrdering Facility: [facility] Address: [address] [place] [address] Performed By: #### 5 7021-8 ####[facility] LABCLIA [id number] [place] [id number] [place] Nucleated RBC/100 WBC (Bld) [Ratio] 0.0 /100 WBC Normal [facility] Comment on above: Order Comment: Speci men Type: BLOOD SPECIMENOrdering Facility: [facility] Address: [address] [place] [address] Performed By: #### 5 7021-8 ####[facility] LABCLIA [id number] [place] [address] [place] Platelet mean volume (Bld) [Entitic vol] 12.2 fL Normal 9.0-12.7 [facility] Comment on above: Order Comment: Speci men Type: BLOOD SPECIMENOrdering Facility: [facility] Address: [address] [place] [address] Performed By: #### 5 7021-8 ####[facility] LABIA [id number] [place] [address] [place] Platelets (Bld) [#/Vol] 135 10*3/uL Low 150-400 [facility] Comment on above: Order Comment: Speci men Type: BLOOD SPECIMENOrdering Facility: [facility] Address: [address] [place] [address] Performed By: #### 5 7021-8 ####[facility] LABIA [id number] [place] [address] [place] RBC (Bld) [#/Vol] 5.77 10*6/uL Normal 4.20-6.00 [facility] Comment on above: Order Comment: Speci men Type: BLOOD SPECIMENOrdering Facility: [facility] Address: [address] [place] [address] Performed By: #### 5 7021-8 ####[facility] LABCLIA [id number] [place] [id number] [place] WBC (Bld) [#/Vol] 7.48 10*3/uL Normal 3.70-11.00 [facility] Comment on above: Order Comment: Speci men Type: BLOOD SPECIMENOrdering Facility: [facility] Address: [address] [place] [address] Performed By: #### 5 7021-8 ####[facility] LABCLIA [id number] [facility] [address] [address] [place] Cholesterol in LDL Direct as say [Mass/Vol]on 12-22-2024 Cholesterol in LDL [Mass/Vol] 65 mg/dL Normal <100 [facility] Comment on above: Order Comment: Speci men Type: BLOOD SPECIMENOrdering Facility: [facility] Address: [address] [place] [address] Result Comment: <100 mg/dL, Optimal 100-129 mg/dL, Near optimal/above optimal 130-159 mg/dL, Borderline high 160-189 mg/dL, High >189 mg/dL, Very high Secondary prevention optimal LDL Cholesterol levels are recommended to be < 70 mg/dL Performed By: #### 2 4331-1, 88562-7, ####[facility] LABCLIA [id number] [address] [address] [place] Cholesterol in VLDL [Mass/Vol] 62 mg/dL High <30 [facility] Comment on above: Order Comment: Speci men Type: BLOOD SPECIMENOrdering Facility: [facility] Address: [address] [place] [address] Performed By: #### 2 4331-1, 16833-5, ####[facility] LABCLIA [id number] [facility] [address] [address] [place] Comprehensive metabolic 2000 panelon 12-22-2024 Albumin [Mass/Vol] 4.0 g/dL Normal 3.9-4.9 [facility] Comment on above: Order Comment: Speci men Type: BLOOD SPECIMENOrdering Facility: [facility] Address: [address] [place] [address] Performed By: #### 2 4331-1, , ####[facility] LABCLIA [id number] [address] [address] [place] ALP [Catalytic activity/Vol] 109 U/L Normal 38-113 [facility] Comment on above: Order Comment: Speci men Type: BLOOD SPECIMENOrdering Facility: [facility] Address: [address] [place], [place] [address] Performed By: #### 2 4331-1, , ####[facility] LABCLIA [id number] [address] [address] [place] ALT [Catalytic activity/Vol] 27 U/L Normal 10-54 [facility] Comment on above: Order Comment: Speci men Type: BLOOD SPECIMENOrdering Facility: [facility] Address: [address] [place], [place] [address] Performed By: #### 2 4331-1, , ####[facility] LABCLIA [id number] [place] [id number] [place] Anion gap [Moles/Vol] 11 mmol/L Normal 8-15 [facility] Comment on above: Order Comment: Speci men Type: BLOOD SPECIMENOrdering Facility: [facility] Address: [address] [place], [place] [address] Performed By: #### 2 4331-1, , ####[facility] LABIA [id number] [place] [id number] [place] AST [Catalytic activity/Vol] 26 U/L Normal 14-40 [facility] Comment on above: Order Comment: Speci men Type: BLOOD SPECIMENOrdering Facility: [facility] Address: [address] [place], [place] [address] Performed By: #### 2 4331-1, , ####[facility] LABCLIA [id number] [address] [address] [place] Bilirubin [Mass/Vol] 0.5 mg/dL Normal 0.2-1.3 [facility] Comment on above: Order Comment: Speci men Type: BLOOD SPECIMENOrdering Facility: [facility] Address: [address] [place], [place] [address] Performed By: #### 2 4331-1, 43128-5, ####[facility] LABCLIA [id number] [address] [address] [place] Calcium [Mass/Vol] 9.7 mg/dL Normal 8.5-10.2 [facility] Comment on above: Order Comment: Speci men Type: BLOOD SPECIMENOrdering Facility: [facility] Address: [address] [place], [place] [address] Performed By: #### 2 4331-1, 24979-6, ####[facility] LABCLIA [id number] [place] [id number] [place] Chloride [Moles/Vol] 101 mmol/L Normal 98-107 [facility] Comment on above: Order Comment: Speci men Type: BLOOD SPECIMENOrdering Facility: [facility] Address: [address] [place], [place] [address] Performed By: #### 2 4331-1, , ####[facility] LABIA [id number] [place] [id number] [place] CO2 [Moles/Vol] 27 mmol/L Normal 22-30 [facility] Comment on above: Order Comment: Speci men Type: BLOOD SPECIMENOrdering Facility: [facility] Address: [address] [place], [place] [address] Performed By: #### 2 4331-1, 14646-0, ####[facility] LABIA [id number] [address] [address] [place] Creatinine [Mass/Vol] 0.56 mg/dL Low 0.73-1.22 [facility] Comment on above: Order Comment: Speci men Type: BLOOD SPECIMENOrdering Facility: [facility] Address: [address] [place], [place] [address] Performed By: #### 2 4331-1, 57747-4, 42147-1 ####[facility] LABIA [id number] [place] [id number] [place] Creatinine and Glomerular filtration rate.predicted panel (S/P/Bld) 116 mL/min/1.73m??? Normal >=60 [facility] Comment on above: Order Comment: Osmin lopez Type: BLOOD SPECIMENOrdering Facility: [facility] Address: [address] [place] [address] Result Comment: Tia mated Glomerular Filtration Rate [...] actual GFR. Performed By: #### 2 4331-1, 36926-4, 27167-4 ####[facility] LABIA [id number] [place] [id number] [place] Glucose [Mass/Vol] 199 mg/dL High 74-99 [facility] Comment on above: Order Comment: Osmin lopez Type: BLOOD SPECIMENOrdering Facility: [facility] Address: [address] [place] [address] Result Comment: The [place] Diabetes Association (ADA) provides guidance for cutoff [...] Standards of Medical Care in Diabetes 2016, [place] [employer] Association. Diabetes Care. 2016.39(Suppl 1). Performed By: #### 2 4331-1, 52684-6, ####[facility] LABCLIA [id number] [address] [address] [place] Potassium [Moles/Vol] 4.3 mmol/L Normal 3.7-5.1 [facility] Comment on above: Order Comment: Speci men Type: BLOOD SPECIMENOrdering Facility: [facility] Address: [address] [place], [place] [address] Performed By: #### 2 4331-1, 26864-5, ####[facility] LABCLIA [id number] [address] [address] [place] Protein [Mass/Vol] 7.4 g/dL Normal 6.3-8.0 [facility] Comment on above: Order Comment: Speci men Type: BLOOD SPECIMENOrdering Facility: [facility] Address: [address] [place], [place] [address] Performed By: #### 2 4331-1, , ####[facility] LABCLIA [id number] [address] [address] [place] Sodium [Moles/Vol] 139 mmol/L Normal 136-144 [facility] Comment on above: Order Comment: Speci men Type: BLOOD SPECIMENOrdering Facility: [facility] Address: [address] [place] [address] Performed By: #### 2 4331-1, , ####[facility] LABCLIA [id number] [address] [address] [place] Urea nitrogen [Mass/Vol] 15 mg/dL Normal 9-24 [facility] Comment on above: Order Comment: Speci men Type: BLOOD SPECIMENOrdering Facility: [facility] Address: [address] [place] [address] Performed By: #### 2 4331-1, , ####[facility] LABCLIA [id number] [address] [place] HbA1c (Bld)on 12-22-2024 Average glucose Estimated from glycated hemoglobin (Bld) [Mass/Vol] 186 mg/dL Normal [facility] Comment on above: Order Comment: Osmin lopez Type: BLOOD SPECIMENOrdering Facility: [facility] Address: [address] [place] [address] Result Comment: eAG: (Estimated average glucose) is a calculated value from HgbA1c and is commercial representative of the average blood glucose level in the last 2-3 month period. Performed By: #### 5 5454-3 ####[facility] LABIA [id number] [address] HbA1c (Bld) [Mass fraction] 8.1 % High 4.3-5.6 [facility] Comment on above: Order Comment: Osmin lopez Type: BLOOD SPECIMENOrdering Facility: [facility] Address: [address] [place] [address] Result Comment: [place] Diabetes Association guidelines indicate that patients with HgbA1c in the range 5.7-6.4% are at increased risk for development of diabetes, and intervention by lifestyle modification may be beneficial. HgbA1c greater or equal to 6.5% is considered diagnostic of diabetes. Performed By: #### 5 5454-3 ####[facility] LABIA [id number] [address] [facility] Lipid 1996 panelon 5 Cholesterol [Mass/Vol] 154 mg/dL Normal <200 [facility] Comment on above: Order Comment: Osmin lopez Type: BLOOD SPECIMENOrdering Facility: [facility] Address: [address] [place] [address] Result Comment: <200 mg/dL, Desirable 200-239 mg/dL, Borderline high >239 mg/dL, High Performed By: #### 2 4331-1, 95763-4, 78228-1 ####[facility] LABCLIA [id number] [address] [address] [facility] [place] Cholesterol in HDL [Mass/Vol] 27 mg/dL Low >39 [facility] Comment on above: Order Comment: Speci men Type: BLOOD SPECIMENOrdering Facility: [facility] Address: [address] [place] [address] Result Comment: 40-5 9 mg/dL, Acceptable >59 mg/dL, High: Negative risk factor for coronary heart disease <40 mg/dL, Low: Positive risk factor for coronary heart disease Performed By: #### 2 4331-1, 24735-7, 06258-3 ####[facility] LABCLIA [id number] [address] Cholesterol in LDL [Mass/Vol] Normal [facility] Comment on above: Order Comment: Speci men Type: BLOOD SPECIMENOrdering Facility: [facility] Address: [address] [place] [address] Result Comment: Unab le to calculate due to increased Triglycerides. See LDL-Chol, Direct. Performed By: #### 2 4331-1, 45463-6, 18006-6 ####[facility] LABCLIA [id number] [place] [id number] [facility] Cholesterol in LDL/Cholesterol in HDL [Mass ratio] Normal [facility] Comment on above: Order Comment: Speci men Type: BLOOD SPECIMENOrdering Facility: [facility] Address: [address] [place] [address] Result Comment: Unab le to calculate due to elevated Triglycerides. Reference: 1. National Cholesterol Education Program ATP III Guideline At-A-Glance Quick Desk Reference: National Heart, Lung, and Blood [place]. National Institutes of Health. 2001: NIH Publication No. 01-3305. 2. An International Atherosclerosis Society position paper: global recommendations for the management of dyslipidemia: executive summary, Atherosclerosis. 2014: 232(2):410-413. Performed By: #### 2 4331-1, 58478-9, 59930-2 ####[facility] LABCLIA [id number] [address] [place] [address] [place] Cholesterol in VLDL [Mass/Vol] Normal [facility] Comment on above: Order Comment: Speci men Type: BLOOD SPECIMENOrdering Facility: [facility] Address: [address] [id number] Result Comment: Unab le to calculate due to increased Triglycerides. See LDL-Chol, Direct. Performed By: #### 2 4331-1, 47463-9, ####[facility] LABCLIA [id number] [address] [place] [address] [place] Cholesterol non HDL [Mass/Vol] 127 mg/dL Normal <130 [facility] Comment on above: Order Comment: Speci men Type: BLOOD SPECIMENOrdering Facility: [facility] Address: [address] [place] [address] Result Comment: <130 mg/dL, Optimal 130-159 mg/dL, Near optimal/above optimal 160-189 mg/dL, Borderline high 190-219 mg/dL, High >219 mg/dL, Very high Secondary prevention optimal non HDL Cholesterol levels are recommended to be <100 mg/dL Performed By: #### 2 4331-1, 82845-4, ####[facility] LABCLIA [id number] [address] [address] [place] Cholesterol.total/Cholest domenic in HDL [Mass ratio] 5.70 {ratio} High <5.10 [facility] Comment on above: Order Comment: Speci men Type: BLOOD SPECIMENOrdering Facility: [facility] Address: [address] [id number] Performed By: #### 2 4331-1, 80918-9, ####[facility] LABCLIA [id number] [address] [address] [place] FASTING TIME 12 hrs Normal [facility] Comment on above: Order Comment: Speci men Type: BLOOD SPECIMENOrdering Facility: [facility] Address: [address] [place], [place] [address] Performed By: #### 2 4331-1, 84941-5, 41814-8 ####[facility] LABIA [id number] [address] [address] [place] [facility] Triglyceride [Mass/Vol] 594 mg/dL High <150 [facility] Comment on above: Order Comment: Speci men Type: BLOOD SPECIMENOrdering Facility: [facility] Address: [address] [id number] Result Comment: <150 mg/dL, Normal 150-199 mg/dL, Borderline high 200-499 mg/dL, High >499 mg/dL, Very high Performed By: #### 2 4331-1, 35027-6, 05859-0 ####[facility] LABCLIA [id number] [place] [id number] [facility] [place] Javy 12-10-2024 [place] Telephone (ADMWST) ELIEL SOUZA ([id number]) 1970 M Date Time Provider Department 12/10/24 [...] medication that he was requesting? Dean Goldberg APRN.MATERIAL ENGINEER Allergies As of Date: 12/10/2024 (No Known [...] with hyperglycemia, wi* Coronary artery disease involving [place] ragland*07/05/2014 Obstructive sleep apnea treated with BiPAP [...] [D69.6] 03/29/2023 (more content not included)... Normal [facility]OU[facility] ([id number]) 1970 [place] Date Time Provider Department 08/27/24 [facility] During your visit today, we recorded the following information about you: Mary Jane Wade RN 08/27/2024 1:27 PM Signed Phong pharmacist @ [facility] calling to let provider know that [...] with hyperglycemia, wi* Coronary artery disease involving [place] ragland*07/05/2014 Obstructive sleep apnea treated with BiPAP [...] Nicotine use (more content not included)... Normal [facility] CNOVon 08-24-2024 CNOV Office Visit (FAMPWS) GONZALOELIEL ([id number]) 1970 M Date Time Provider Department 08/24/24 [...] does get some anxiety when driving to [place] on the highways. His chest gets a [...] HISTORY Diagnosis Date CAD (coronary artery disease), [place] coronary artery 2014 No PCI indicated. no machine cage maker needed Closed fracture of femur ([facility]) 11/2010 Depressive disorder, not elsewhere classified Diabetes mellitus type 2 in obese DVT of lower extremity (deep venous thrombosis) ([facility]) 11/2010 left Esophageal reflux Essential hypertension CATY (obstructive sleep apnea) CPAP needs another sleep study machine set too high Pelvic fracture ([facility]) Seasonal allergic rhinitis Unspecified asthma(493.90) Diagnosed [...] by mouth (more content not included)... Normal [facility] CBC panel Auto (Bld)on 08-11 Erythrocyte distribution width (RBC) [Ratio] 13.7 % Normal 11.5-15.0 [facility] Comment on above: Order Comment: Speci men Type: BLOOD SPECIMENOrdering Facility: [facility] Address: [address] [place] [address] Performed By: #### 5 8410-2 ####[facility] LABIA [id number] [place] [address] [place] Hematocrit (Bld) [Volume fraction] 49.3 % Normal 39.0-51.0 [facility] Comment on above: Order Comment: Speci men Type: BLOOD SPECIMENOrdering Facility: [facility] Address: [address] [place] [address] Performed By: #### 5 8410-2 ####[facility] LABIA [id number] [place] [address] [place] Hemoglobin (Bld) [Mass/Vol] 16.4 g/dL Normal 13.0-17.0 [facility] Comment on above: Order Comment: Speci men Type: BLOOD SPECIMENOrdering Facility: [facility] Address: [address] [place] [address] Performed By: #### 5 8410-2 ####[facility] LABIA [id number] [place] [address] [place] MCH (RBC) [Entitic mass] 27.9 pg Normal 26.0-34.0 [facility] Comment on above: Order Comment: Speci men Type: BLOOD SPECIMENOrdering Facility: [facility] Address: [address] [place] [address] Performed By: #### 5 8410-2 ####[facility] LABIA [id number] [place] [address] [place] MCHC (RBC) [Mass/Vol] 33.3 g/dL Normal 30.5-36.0 [facility] Comment on above: Order Comment: Speci men Type: BLOOD SPECIMENOrdering Facility: [facility] Address: [address] [place] [address] Performed By: #### 5 8410-2 ####[facility] LABCLIA [id number] [place] [address] [place] MCV (RBC) [Entitic vol] 84.0 fL Normal 80.0-100.0 [facility] Comment on above: Order Comment: Speci men Type: BLOOD SPECIMENOrdering Facility: [facility] Address: [address] [place] [address] Performed By: #### 5 8410-2 ####[facility] LABIA [id number] [place] [address] [place] Nucleated RBC (Bld) [#/Vol] 10*3/uL Normal <0.01 [facility] Comment on above: Order Comment: Speci men Type: BLOOD SPECIMENOrdering Facility: [facility] Address: [address] [place] [address] Performed By: #### 5 8410-2 ####[facility] LABIA [id number] [place] [address] [place] Platelet mean volume (Bld) [Entitic vol] 11.9 fL Normal 9.0-12.7 [facility] Comment on above: Order Comment: Speci men Type: BLOOD SPECIMENOrdering Facility: [facility] Address: [address] [place] [address] Performed By: #### 5 8410-2 ####[facility] LABIA [id number] [place] [address] [place] Platelets (Bld) [#/Vol] 156 10*3/uL Normal 150-400 [facility] Comment on above: Order Comment: Speci men Type: BLOOD SPECIMENOrdering Facility: [facility] Address: [address] [place] [address] Performed By: #### 5 8410-2 ####[facility] LABIA [id number] [place] [address] [place] RBC (Bld) [#/Vol] 5.87 10*6/uL Normal 4.20-6.00 [facility] Comment on above: Order Comment: Speci men Type: BLOOD SPECIMENOrdering Facility: [facility] Address: [address] [place] [address] Performed By: #### 5 8410-2 ####[facility] LABCLIA [id number] [place] [address] [place] WBC (Bld) [#/Vol] 6.21 10*3/uL Normal 3.70-11.00 [facility] Comment on above: Order Comment: Speci men Type: BLOOD SPECIMENOrdering Facility: [facility] Address: [address] [place] [address] Performed By: #### 5 8410-2 ####[facility] LABCLIA [id number] [place] [address] [place] Comprehensive metabolic 2000 panelon 08-11-2024 Albumin [Mass/Vol] 4.0 g/dL Normal 3.9-4.9 [facility] Comment on above: Order Comment: Speci men Type: BLOOD SPECIMENOrdering Facility: [facility] Address: [address] [place] [address] Performed By: #### 2 4323-8 ####[facility] LABCLIA [id number] [place] [address] [place] ALP [Catalytic activity/Vol] 110 U/L Normal 38-113 [facility] Comment on above: Order Comment: Speci men Type: BLOOD SPECIMENOrdering Facility: [facility] Address: [address] [place] [address] Performed By: #### 2 4323-8 ####[facility] LABCLIA [id number] [place] [address] [place] ALT [Catalytic activity/Vol] 37 U/L Normal 10-54 [facility] Comment on above: Order Comment: Speci men Type: BLOOD SPECIMENOrdering Facility: [facility] Address: [address] [place] [address] Result Comment: Shankar danni removed prior to analysis. Performed By: #### 2 4323-8 ####[facility] LABCLIA [id number] [place] [address] [place] Anion gap [Moles/Vol] 11 mmol/L Normal 8-15 [facility] Comment on above: Order Comment: Speci men Type: BLOOD SPECIMENOrdering Facility: [facility] Address: [address] [place] [address] Performed By: #### 2 4323-8 ####[facility] LABIA [id number] [place] [address] [place] AST [Catalytic activity/Vol] 48 U/L High 14-40 [facility] Comment on above: Order Comment: Speci men Type: BLOOD SPECIMENOrdering Facility: [facility] Address: [address] [place] [address] Result Comment: Shankar danni removed prior to analysis. Performed By: #### 2 4323-8 ####[facility] LABIA [id number] [place] [address] [place] Bilirubin [Mass/Vol] 0.6 mg/dL Normal 0.2-1.3 [facility] Comment on above: Order Comment: Speci men Type: BLOOD SPECIMENOrdering Facility: [facility] Address: [address] [place] [address] Performed By: #### 2 4323-8 ####[facility] LABIA [id number] [place] [address] [place] Calcium [Mass/Vol] 9.7 mg/dL Normal 8.5-10.2 [facility] Comment on above: Order Comment: Speci men Type: BLOOD SPECIMENOrdering Facility: [facility] Address: [address] [place] [address] Performed By: #### 2 4323-8 ####[facility] LABCLIA [id number] [place] [address] [place] Chloride [Moles/Vol] 97 mmol/L Low 98-107 [facility] Comment on above: Order Comment: Speci men Type: BLOOD SPECIMENOrdering Facility: [facility] Address: [address] [place] [address] Performed By: #### 2 4323-8 ####[facility] LABCLIA [id number] [place] [address] [place] CO2 [Moles/Vol] 25 mmol/L Normal 22-30 [facility] Comment on above: Order Comment: Speci men Type: BLOOD SPECIMENOrdering Facility: [facility] Address: [address] [place] [address] Performed By: #### 2 4323-8 ####[facility] LABCLIA [id number] [place] [address] [place] Creatinine [Mass/Vol] 0.57 mg/dL Low 0.73-1.22 [facility] Comment on above: Order Comment: Speci men Type: BLOOD SPECIMENOrdering Facility: [facility] Address: [address] [place] [address] Performed By: #### 2 4323-8 ####[facility] LABIA [id number] [place] [address] [place] Creatinine and Glomerular filtration rate.predicted panel (S/P/Bld) 115 mL/min/1.73m??? Normal >=60 [facility] Comment on above: Order Comment: Speci men Type: BLOOD SPECIMENOrdering Facility: [facility] Address: [address] [place] [address] Result Comment: Tia mated Glomerular Filtration Rate [...] actual GFR. Performed By: #### 2 4323-8 ####[facility] LABIA [id number] [place] [address] [place] Glucose [Mass/Vol] 240 mg/dL High 74-99 [facility] Comment on above: Order Comment: Osmin men Type: BLOOD SPECIMENOrdering Facility: [facility] Address: [address] [place] [address] Result Comment: The [place] Diabetes Association (ADA) provides guidance for cutoff [...] Standards of Medical Care in Diabetes 2016, [place] Diabetes Association. Diabetes Care. 2016.39(Suppl 1). Performed By: #### 2 4323-8 ####[facility] LABIA [id number] [place] [address] [place] Potassium [Moles/Vol] 4.6 mmol/L Normal 3.7-5.1 [facility] Comment on above: Order Comment: Osmin men Type: BLOOD SPECIMENOrdering Facility: [facility] Address: [address] [place] [address] Performed By: #### 2 4323-8 ####[facility] LABIA [id number] [place] [address] [place] Protein [Mass/Vol] 7.4 g/dL Normal 6.3-8.0 [facility] Comment on above: Order Comment: Osmin men Type: BLOOD SPECIMENOrdering Facility: [facility] Address: [address] [place] [address] Performed By: #### 2 4323-8 ####[facility] LABCLIA [id number] [place] [address] [place] Sodium [Moles/Vol] 133 mmol/L Low 136-144 [facility] Comment on above: Order Comment: Speci men Type: BLOOD SPECIMENOrdering Facility: [facility] Address: [address] [place] [address] Performed By: #### 2 4323-8 ####[facility] LABIA [id number] [place] [address] [place] Urea nitrogen [Mass/Vol] 11 mg/dL Normal 9-24 [facility] Comment on above: Order Comment: Speci men Type: BLOOD SPECIMENOrdering Facility: [facility] Address: [address] [place] [address] Performed By: #### 2 4323-8 ####[facility] LABIA [id number] [place] [address] [place] HbA1c (Bld)on 08-11-2024 Average glucose Estimated from glycated hemoglobin (Bld) [Mass/Vol] 209 mg/dL Normal [facility] Comment on above: Order Comment: Speci men Type: BLOOD SPECIMENOrdering Facility: [facility] Address: [address] [place] [address] Result Comment: eAG: (Estimated average glucose) is a calculated value from HgbA1c and is commercial representative of the average blood glucose level in the last 2-3 month period. Performed By: #### 5 5454-3 ####[facility] [id number] [place] [address] [place] HbA1c (Bld) [Mass fraction] 8.9 % High 4.3-5.6 [facility] Comment on above: Order Comment: Speci men Type: BLOOD SPECIMENOrdering Facility: [facility] Address: [address] [place] [address] Result Comment: Ameddie ican Diabetes Association guidelines indicate that patients with HgbA1c in the range 5.7-6.4% are at increased risk for development of diabetes, and intervention by lifestyle modification may be beneficial. HgbA1c greater or equal to 6.5% is considered diagnostic of diabetes. Performed By: #### 5 5454-3 ####[facility] LABANA [id number] DHAVALRita [facility] [id number] [address] [facility] CNOVon 05-22-2024 CNOV Office Visit (FAMPWS) ELIEL SOUZA ([id number]) 1970 M Date Time Provider Department 05/22/24 9:40 AM [facility] During your visit today, we recorded [...] issues. Hx of Ileostomy. Was seen at [facility] on 05/14/24 for abdominal pain. Has [...] as needed. Is not following with any Manuscript Editor, was referred to one last visit and [...] MEDICAL HISTORY 2014: CAD (coronary artery disease), [place] coronary artery Comment: No PCI indicated. no machine cage maker needed 11/2010: Closed fracture of femur ([facility]) [...] insulin lispro (more content not included)... Normal [facility] CNOVon 05-14-2024 CNOV Office Visit (UCWSTR) ELIEL SOUZA ([id number]) 1970 M Date Time Provider Department 05/14/24 2:00 PM MATILDE GAN WSTR During your visit today, we recorded the following information about you: Temperature Pulse Respiration Blood pressure 97.5 degrees 95/minute minute 108/74 Weight 125.5 kg Matilde Gan APRN.MATERIAL ENGINEER 05/14/2024 2:30 PM Signed This note was created using PsyQicriter. Subjective Eliel Souza is a 53 year [...] going to an emergency room. Matilde Gan APRN.MATERIAL ENGINEER Allergies As of Date: 05/14/2024 (No Known Allergies) Date Reviewed: 05/14/2024 Reviewed by: Matilde Gan APRN.MATERIAL ENGINEER - Fully Assessed Reason for Visit: Diarrhea [...] 8 h (more content not included)... Normal [facility] ALBUMIN/CREATININE RATIO, UR INEon 05-09-2024 Albumin DL <= 20 mg/L (U) [Mass/Vol] mg/dL Normal [facility] Comment on above: Order Comment: Speci men Type: URINE SPECIMENOrdering Facility: [facility] Address: [address] [place] [address] Performed By: #### U ACR ####[facility] LABCLIA [id number] [place] [address] [place] Albumin/Creatinine (U) [Mass ratio] <9 Normal <30 [facility] Comment on above: Order Comment: Speci men Type: URINE SPECIMENOrdering Facility: [facility] Address: [address] [place] [address] Result Comment: Adul t Male and Female Nephrotic Criteria: <30 mg/g is considered normal to mildly increased 30-300 mg/g is considered moderately increased >300 mg/g is considered severely increased KDIGO. (2013). KDIGO 2012 Clinical Practice Guideline for the Evaluation and Management of Chronic Kidney Disease. Official Journal of the International Society of Nephrology, 3(1), 1-150. Performed By: #### U ACR ####[facility] LABCLIA [id number] [place] [address] [place] Creatinine (U) [Mass/Vol] 128.5 mg/dL Normal 20.0-300. 0 [facility] Comment on above: Order Comment: Speci men Type: URINE SPECIMENOrdering Facility: [facility] Address: [address] [place] [address] Performed By: #### U ACR ####[facility] LABCLIA [id number] [place] [address] [place] Comprehensive metabolic 2000 panelon 05-09-2024 Albumin [Mass/Vol] 3.8 g/dL Low 3.9-4.9 [facility] Comment on above: Order Comment: Speci men Type: BLOOD SPECIMENOrdering Facility: [facility] Address: [address] [place] [address] Performed By: #### 2 4331-1, 08715-4 ####[facility] LABCLIA [id number] [place] [id number] [place] ALP [Catalytic activity/Vol] 110 U/L Normal 38-113 [facility] Comment on above: Order Comment: Speci men Type: BLOOD SPECIMENOrdering Facility: [facility] Address: [address] [place] [address] Performed By: #### 2 4331-1, 40782-1 ####[facility] LABCLIA [id number] [place] [address] [place] ALT [Catalytic activity/Vol] 33 U/L Normal 10-54 [facility] Comment on above: Order Comment: Speci men Type: BLOOD SPECIMENOrdering Facility: [facility] Address: [address] [place] [address] Performed By: #### 2 4331-1, 20704-8 ####[facility] LABCLIA [id number] [place] [id number] [place] Anion gap [Moles/Vol] 10 mmol/L Normal 8-15 [facility] Comment on above: Order Comment: Speci men Type: BLOOD SPECIMENOrdering Facility: [facility] Address: [address] [place] [address] Performed By: #### 2 4331-1, 43960-6 ####[facility] LABCLIA [id number] [place] [id number] [place] AST [Catalytic activity/Vol] 25 U/L Normal 14-40 [facility] Comment on above: Order Comment: Speci men Type: BLOOD SPECIMENOrdering Facility: [facility] Address: [address] [id number] Performed By: #### 2 4331-1, ####[facility] LABCLIA [id number] [place] [id number] [place] Bilirubin [Mass/Vol] 1.0 mg/dL Normal 0.2-1.3 [facility] Comment on above: Order Comment: Speci men Type: BLOOD SPECIMENOrdering Facility: [facility] Address: [address] [place] [address] Performed By: #### 2 4331-1, ####[facility] LABCLIA [id number] [place] [address] [place] Calcium [Mass/Vol] 9.3 mg/dL Normal 8.5-10.2 [facility] Comment on above: Order Comment: Speci men Type: BLOOD SPECIMENOrdering Facility: [facility] Address: [address] [place] [address] Performed By: #### 2 4331-1, ####[facility] LABCLIA [id number] [place] [address] [place] Chloride [Moles/Vol] 100 mmol/L Normal 98-107 [facility] Comment on above: Order Comment: Speci men Type: BLOOD SPECIMENOrdering Facility: [facility] Address: [address] [place] [id number] Performed By: #### 2 4331-1, ####[facility] LABCLIA [id number] [place] [id number] [place] CO2 [Moles/Vol] 24 mmol/L Normal 22-30 [facility] Comment on above: Order Comment: Speci men Type: BLOOD SPECIMENOrdering Facility: [facility] Address: [address] [place], [place] [id number] Performed By: #### 2 4331-1, 99246-4 ####[facility] LABIA [id number] [place] [address] [place] Creatinine [Mass/Vol] 0.67 mg/dL Low 0.73-1.22 [facility] Comment on above: Order Comment: Osmin lopez Type: BLOOD SPECIMENOrdering Facility: [facility] Address: [address] [place] [address] Performed By: #### 2 4331-1, 29093-5 ####[facility] LABIA [id number] [place] [address] [place] Creatinine and Glomerular filtration rate.predicted panel (S/P/Bld) 110 mL/min/1.73m??? Normal >=60 [facility] Comment on above: Order Comment: Osmin lopez Type: BLOOD SPECIMENOrdering Facility: [facility] Address: [address] [place] [address] Result Comment: Tia mated Glomerular Filtration Rate [...] actual GFR. Performed By: #### 2 4331-1, 23984-3 ####[facility] LABIA [id number] [place] [address] [place] Glucose [Mass/Vol] 192 mg/dL High 74-99 [facility] Comment on above: Order Comment: Osmin lopez Type: BLOOD SPECIMENOrdering Facility: [facility] Address: [address] [place] [address] Result Comment: The [place] Diabetes Association (ADA) provides guidance for cutoff [...] Standards of Medical Care in Diabetes 2016, [place] Diabetes Association. Diabetes Care. 2016.39(Suppl 1). Performed By: #### 2 4331-, ####[facility] LABCLIA [id number] [place] [address] [place] Potassium [Moles/Vol] 4.6 mmol/L Normal 3.7-5.1 [facility] Comment on above: Order Comment: Speci men Type: BLOOD SPECIMENOrdering Facility: [facility] Address: [address] [place] [address] Performed By: #### 2 43310-17, ####[facility] LABIA [id number] [place] [address] [place] Protein [Mass/Vol] 7.0 g/dL Normal 6.3-8.0 [facility] Comment on above: Order Comment: Speci men Type: BLOOD SPECIMENOrdering Facility: [facility] Address: [address] [place] [address] Performed By: #### 2 43310-17, ####[facility] LABCLIA [id number] [place] [address] [place] Sodium [Moles/Vol] 134 mmol/L Low 136-144 [facility] Comment on above: Order Comment: Speci men Type: BLOOD SPECIMENOrdering Facility: [facility] Address: [address] [place] [address] Performed By: #### 2 4331-, ####[facility] LABCLIA [id number] [address] [address] [place] Urea nitrogen [Mass/Vol] 10 mg/dL Normal 9-24 [facility] Comment on above: Order Comment: Osmin lopez Type: BLOOD SPECIMENOrdering Facility: [facility] Address: [address] [place] [address] Performed By: #### 2 4331-1, 81580-3 ####[facility] LABCLIA [id number] [place] [address] [place] HbA1c (Bld)on 05-09-2024 Average glucose Estimated from glycated hemoglobin (Bld) [Mass/Vol] 212 mg/dL Normal [facility] Comment on above: Order Comment: Osmin lopez Type: BLOOD SPECIMENOrdering Facility: [facility] Address: [address] [place] [address] Result Comment: eAG: (Estimated average glucose) is a calculated value from HgbA1c and is commercial representative of the average blood glucose level in the last 2-3 month period. Performed By: #### 5 5454-3 ####[facility] LABCLIA [id number] [place] [address] [place] HbA1c (Bld) [Mass fraction] 9.0 % High 4.3-5.6 [facility] Comment on above: Order Comment: Osmin lopez Type: BLOOD SPECIMENOrdering Facility: [facility] Address: [address] [place] [address] Result Comment: Amer ican Diabetes Association guidelines indicate that patients with HgbA1c in the range 5.7-6.4% are at increased risk for development of diabetes, and intervention by lifestyle modification may be beneficial. HgbA1c greater or equal to 6.5% is considered diagnostic of diabetes. Performed By: #### 5 5454-3 ####[facility] LABCLIA [id number] [place] [id number] [place] Lipid 1996 panelon Cholesterol [Mass/Vol] 105 mg/dL Normal <200 Cl [facility] Comment on above: Order Comment: Osmin lopez Type: BLOOD SPECIMENOrdering Facility: [facility] Address: [address] [place] [address] Result Comment: <200 mg/dL, Desirable 200-239 mg/dL, Borderline high >239 mg/dL, High Performed By: #### 2 4331-1, 32081-4 ####[facility] LABCLIA [id number] [address] [address] [place] Cholesterol in HDL [Mass/Vol] 18 mg/dL Low >39 [facility] Comment on above: Order Comment: Speci men Type: BLOOD SPECIMENOrdering Facility: [facility] Address: [address] [place] [address] Result Comment: 40-5 9 mg/dL, Acceptable >59 mg/dL, High: Negative risk factor for coronary heart disease <40 mg/dL, Low: Positive risk factor for coronary heart disease Performed By: #### 2 4331-1, 76639-4 ####[facility] LABCLIA [id number] [place] [address] [place] Cholesterol in LDL [Mass/Vol] 48 mg/dL Normal <100 [facility] Comment on above: Order Comment: Manni men Type: BLOOD SPECIMENOrdering Facility: [facility] Address: [address] [place] [address] Result Comment: <100 mg/dL, Optimal 100-129 mg/dL, Near optimal/above optimal 130-159 mg/dL, Borderline high 160-189 mg/dL, High >189 mg/dL, Very high Secondary prevention optimal LDL Cholesterol levels are recommended to be < 70 mg/dL Performed By: #### 2 4331-1, 58420-9 ####[facility] LABCLIA [id number] [place] [address] [place] Cholesterol in LDL/Cholesterol in HDL [Mass ratio] 2.67 {ratio} High <2.54 [facility] Comment on above: Order Comment: Speci men Type: BLOOD SPECIMENOrdering Facility: [facility] Address: [address] [place] [address] Result Comment: Refe carlene: 1. National Cholesterol Education Program ATP III Guideline At-A-Glance Quick Desk Reference: National Heart, Lung, and Blood [place]. National Institutes of Health. 2001: NIH Publication No. 01-3305. 2. An International Atherosclerosis Society position paper: global recommendations for the management of dyslipidemia: executive summary, Atherosclerosis. 2014: 232(2):410-413. Performed By: #### 2 4331-1, 34790-2 ####[facility] LABCLIA [id number] [place] [address] [place] Cholesterol in VLDL [Mass/Vol] 39 mg/dL High <30 [facility] Comment on above: Order Comment: Osmin lopez Type: BLOOD SPECIMENOrdering Facility: [facility] Address: [address] [place] [address] Performed By: #### 2 4331-1, 02079-5 ####[facility] LABIA [id number] [place] [address] [place] Cholesterol non HDL [Mass/Vol] 87 mg/dL Normal <130 [facility] Comment on above: Order Comment: Osmin lopez Type: BLOOD SPECIMENOrdering Facility: [facility] Address: [address] [place] [address] Result Comment: <130 mg/dL, Optimal 130-159 mg/dL, Near optimal/above optimal 160-189 mg/dL, Borderline high 190-219 mg/dL, High >219 mg/dL, Very high Secondary prevention optimal non HDL Cholesterol levels are recommended to be <100 mg/dL Performed By: #### 2 4331-1, 32894-7 ####[facility] LABIA [id number] [place] [address] [place] Cholesterol.total/Cholest domenic in HDL [Mass ratio] 5.83 {ratio} High <5.10 [facility] Comment on above: Order Comment: Osmin lopez Type: BLOOD SPECIMENOrdering Facility: [facility] Address: [address] [place] [address] Performed By: #### 2 4331-1, 00552-2 ####[facility] LABCLIA [id number] [place] [address] [place] FASTING TIME 10 hrs Normal [facility] Comment on above: Order Comment: Speci men Type: BLOOD SPECIMENOrdering Facility: [facility] Address: [address] [place] [address] Performed By: #### 2 4331-1, 80322-2 ####[facility] LABCLIA [id number] [place] [address] [place] Triglyceride [Mass/Vol] 194 mg/dL High <150 [facility] Comment on above: Order Comment: Speci men Type: BLOOD SPECIMENOrdering Facility: [facility] Address: [address] [place] [address] Result Comment: <150 mg/dL, Normal 150-199 mg/dL, Borderline high 200-499 mg/dL, High >499 mg/dL, Very high Performed By: #### 2 4331-1, 19634-2 ####[facility] LABCLIA [id number] [place] [address] [place] Absolute lymphocyte countOrd ered By: Bruce Dong on 01-29-2024 Lymphocytes Auto (Unsp spec) [#/Vol] 2.23 10*3/uL 0.83-4.51 [facility] Automated lymphocyte count a s percentage of total leukocytesOrdered By: Bruce Dong on 01-29-2024 Lymphocytes/100 WBC Auto (Unsp spec) 39.1 % 19-41 [facility] Basophil percentageOrdered B y: Bruce Dong on 01-29-2024 Basophils/100 WBC (Bld) 1.1 % 0-1 [facility] Chloride [Moles/Vol] 105 mmol/L 98-107 [facility] Eosinophils/100 WBC (Bld) 4.7 % 0-5 [facility] Glucose [Mass/Vol] 415 mg/dL 74-106 [facility] Comment on above: Slight Lipemia, Resu lt may be falsely increased.Glucose result greater than or equal to 200 mg/dLsuggests DIABETES MELLITUS per A.D.A. criteria. Hemoglobin (Bld) [Mass/Vol] 15.3 g/dL 13.0-16.5 [facility] Monocytes/100 WBC (Bld) 7.4 % 0-10 [facility] Neutrophils (Bld) [#/Vol] 2.6 10*3/uL 2.0-7.7 [facility] Neutrophils/100 WBC (Bld) 46.1 % 47-70 [facility] Potassium [Moles/Vol] 3.9 mmol/L 3.5-5.1 [facility] Comment on above: Moderate Hemolysis, Result may be falsely increased.-Slight Lipemia, Result may be falsely increased. Sodium [Moles/Vol] 135 mmol/L 136-145 [facility] WBC (Bld) [#/Vol] 5.7 10*3/uL 4.4-11.0 [facility] Blood platelet adequacy dete ction by light microscopyOrdered By: Bruce Dong on 01-29-2024 Platelets LM Ql (Bld) SLT DEC ADEQ [facility] Determination of erythrocyte mean corpuscular volume (MCV)Ordered By: Bruce Dong on 01-29-2024 MCV (RBC) [Entitic vol] 85.2 fL 80-94 [facility] Erythrocyte distribution wid th ratioOrdered By: Bruce Dong on 01-29-2024 Erythrocyte distribution width (RBC) [Ratio] 13.2 % 11.6-14.6 [facility] Erythrocyte distribution wid th standard deviationOrdered By: Bruce Dong on 01-29-2024 Erythrocyte distribution width (RBC) [Entitic vol] 41.0 fL 35.1-43.9 [facility] Hematocrit Auto (Bld) [Volum e fraction]Ordered By: Bruce Dong on 01-29-2024 Hematocrit (Bld) [Volume fraction] 44.4 % 40-54 [facility] Immature granulocytes/100 WB C Auto (Bld)Ordered By: Bruce Dong on 01-29-2024 Immature granulocytes/100 WBC (Bld) 1.600 % 0.0-0.9 [facility] Comment on above: IG% - Immature Granu locytes (promyelocytes, myelocytes and metamyelocytes) > 1% indicates that a LEFT SHIFT is Present. Laboratory - Chemistry and C hemistry - challengeOrdered By: Bruce Dong on 01-29-2024 CO2 [Moles/Vol] 22.0 mmol/L 21.0-32.0 [facility] Comment on above: Slight Lipemia, Resu lt may be falsely increased. Magnesium [Mass/Vol] 1.6 mg/dL 1.6-2.6 [facility] Comment on above: Moderate Hemolysis, Result may be falsely increased.-Slight Lipemia, Result may be falsely increased. Natriuretic peptide B (Bld) [Mass/Vol] 56.4 pg/mL 0-100 [facility] Urea nitrogen/Creatinine [Mass ratio] 20.5 mg/mg 10-20 [facility] Laboratory - Hematology and Cell countsOrdered By: Bruce Dong on 01-29-2024 MCH (RBC) [Entitic mass] 29.4 pg 27.0-32.0 [facility] MCHC (RBC) [Mass/Vol] 34.5 g/dL 32-36 [facility] Nucleated RBC/100 WBC (Bld) [Ratio] 0 % 0-5 [facility] Platelet mean volume (Bld) [Entitic vol] 11.7 fL 6.2-12.0 [facility] Platelets (Bld) [#/Vol] 92 10*3/uL 150-450 [facility] Laboratory - Microbiology an d Antimicrobial susceptibilityOrdered By: Bruce Dong on 01-29-2024 SARS-CoV-2 (COVID-19) RNA LAZARO+probe Ql (Unsp spec) [facility] No Panel InformationOrdered By: Bruce Dong on 01-29-2024 Estimated Creatinine Clearance Calc 152.90 ml/min [facility] Estimated GFR (MDRD) Amer 132 mL/min >60 [facility] Comment on above: GFR Calc Estimated GFR (MDRD) Non-Af Amer 109 mL/min >60 [facility] Comment on above: Non- GFR Calc RBC Auto (Bld) [#/Vol]Ordere d By: Bruce Dong on 04-14-2024 RBC (Bld) [#/Vol] 5.21 10*6/uL 4.6-6.2 [facility] Serum or plasma calcium mohan urement (mass/volume)Ordered By: Bruce Dong on 01-29-2024 Calcium [Mass/Vol] 8.9 mg/dL 8.5-10.1 [facility] Comment on above: Slight Lipemia, Resu lt may be falsely increased. Serum or plasma creatinine m easurement (mass/volume)Ordered By: Bruce Dong on 01-29-2024 Creatinine [Mass/Vol] 0.78 mg/dL 0.70-1.30 [facility] Comment on above: Slight Lipemia, Resu lt may be falsely increased.The validity of the calculated GFR & GFRAA in patients over 70 years has not been determined. Clinical correlation is essential. Serum or plasma urea nitroge n measurement (mass/volume)Ordered By: Bruce Dong on 01-29-2024 Urea nitrogen [Mass/Vol] 16 mg/dL 7-18 [facility] Comment on above: Slight Lipemia, Resu lt may be falsely increased. Thin prep Papanicolaou smear with manual screeningOrdered By: Bruce Dong on 01-29-2024 Thin prep Papanicolaou smear with manual screening 8 5-15 [facility] XR CHEST 2V FRONTAL/LATon [facility] XR Chest PA and Lateralon IMPRESSION: No acute radiographic abnormality. Door Machine Operator: BJORN Transcribe Date/Time: Sep 21 2023 4:13P Dictated by : LINDA SANDY MD This examination was interpreted and the report reviewed and electronically signed by: LINDA SANDY MD on Sep 21 2023 4:14PM [facility] DIVISION OF RADIOLOGY * * *Final [...] right mid rib. DIVISION OF RADIOLOGY Provider, [facility] [place] - 09/21/2023 * * *Final Report* * [...] rib. IMPRESSION IMPRESSION: No acute radiographic abnormality. Door Machine Operator: PSCB Transcribe Date/Time: Sep 21 2023 4:13P Dictated by : LINDA SANDY MD This examination was interpreted and the report reviewed and electronically signed by: LINDA SANDY MD on Sep 21 2023 4:14PM EST [facility] Radiology Study observation (narrative) Robbie salas [facility] XR Chest PA and LateralOrder ed By: Ccf Provider on 09-21-2023 [facility] Absolute lymphocyte countOrd ered By: Dr. Whiteside on 12-06-2022 Lymphocytes Auto (Unsp spec) [#/Vol] 0.94 10*3/uL 0.83-4.51 [facility] Basophil percentageOrdered B y: Dr. Whiteside on 12-06-2022 Basophils/100 WBC (Bld) 0.5 % 0-1 [facility] Chloride [Moles/Vol] 99 mmol/L 98-107 [facility] Eosinophils/100 WBC (Bld) 1.0 % 0-5 [facility] Glucose [Mass/Vol] 346 mg/dL 74-106 [facility] Comment on above: Glucose result great er than or equal to 200 mg/dLsuggests DIABETES MELLITUS per A.D.A. criteria. Neutrophils (Bld) [#/Vol] 5.7 10*3/uL 2.0-7.7 [facility] Neutrophils/100 WBC (Bld) 73.9 % 47-70 [facility] Potassium [Moles/Vol] 4.1 mmol/L 3.5-5.1 [facility] Sodium [Moles/Vol] 132 mmol/L 136-145 [facility] WBC (Bld) [#/Vol] 7.7 10*3/uL 4.4-11.0 [facility] Blood erythrocytes count (nu mber/volume)Ordered By: Dr. Whiteside on 12-06-2022 RBC (Bld) [#/Vol] 6.44 10*6/uL 4.6-6.2 [facility] Blood hemoglobin measurement (mass/volume)Ordered By: Dr. Whiteside on 12-06-2022 Hemoglobin (Bld) [Mass/Vol] 18.5 g/dL 13.0-16.5 [facility] Blood lymphocytes/100 leukoc ytesOrdered By: Dr. Whiteside on 12-06-2022 Lymphocytes/100 WBC (Bld) 12.2 % 19-41 [facility] Blood monocytes/100 leukocyt esOrdered By: Dr. Whiteside on 12-06-2022 Monocytes/100 WBC (Bld) 11.6 % 0-10 [facility] Blood platelet mean volumeOr dered By: Dr. Whiteside on 12-06-2022 Platelet mean volume (Bld) [Entitic vol] 11.0 fL 6.2-12.0 [facility] Determination of erythrocyte mean corpuscular volume (MCV)Ordered By: Dr. Whiteside on 12-06-2022 MCV (RBC) [Entitic vol] 83.4 fL 80-94 [facility] Hematocrit Auto (Bld) [Volum e fraction]Ordered By: Dr. Whiteside on 12-06-2022 Hematocrit (Bld) [Volume fraction] 53.7 % 40-54 [facility] Laboratory - Chemistry and C hemistry - challengeOrdered By: Dr. Whiteside on 12-06-2022 CO2 [Moles/Vol] 22.0 mmol/L 21.0-32.0 [facility] Urea nitrogen/Creatinine [Mass ratio] 23.6 mg/mg 10-20 [facility] Laboratory - Hematology and Cell countsOrdered By: Dr. Whiteside on 12-06-2022 Erythrocyte distribution width (RBC) [Entitic vol] 39.5 fL 35.1-43.9 [facility] Erythrocyte distribution width (RBC) [Ratio] 13.2 % 11.6-14.6 [facility] Immature granulocytes/100 WBC (Bld) 0.800 % 0.0-0.9 [facility] Comment on above: IG% - Immature Granu locytes (promyelocytes, myelocytes and metamyelocytes) > 1% indicates that a LEFT SHIFT is Present. MCH (RBC) [Entitic mass] 28.7 pg 27.0-32.0 [facility] Nucleated RBC/100 WBC (Bld) [Ratio] 0 % 0-5 [facility] MCHC Auto (RBC) [Mass/Vol]Or dered By: Dr. Whiteside on 12-06-2022 MCHC (RBC) [Mass/Vol] 34.5 g/dL 32-36 [facility] No Panel InformationOrdered By: Dr. Whiteside on 12-06-2022 Estimated Creatinine Clearance Calc 91.78 ml/min [facility] Estimated GFR (MDRD) Amer 103 mL/min >60 [facility] Comment on above: GFR Calc Estimated GFR (MDRD) Non-Af Amer 85 mL/min >60 [facility] Comment on above: Non- GFR Calc Troponin I High Sensitivity 15 pg/mL 3.0-78.0 [facility] Comment on above: Please Note: New Jane t Units and Gender Specific Reference Ranges. For more information see Policy Stat Procedure [place] High Sensitivity Troponin (TNIH) and attachments. Platelets bldOrdered By: Dr. Whiteside on 12-06-2022 Platelets (Bld) [#/Vol] 125 10*3/uL 150-450 [facility] Review by pathologistOrdered By: Dr. Whiteside on 12-06-2022 Pathologist review Jl (Unsp spec) [Interp] May chen [facility] Serum or plasma calcium mohan urement (mass/volume)Ordered By: Dr. Whiteside on 12-06-2022 Calcium [Mass/Vol] 9.5 mg/dL 8.5-10.1 [facility] Serum or plasma creatinine m easurement (mass/volume)Ordered By: Dr. Whiteside on 12-06-2022 Creatinine [Mass/Vol] 0.98 mg/dL 0.70-1.30 [facility] Comment on above: The validity of the calculated GFR & GFRAA in patients over 70 years has not been determined. Clinical correlation is essential. Serum or plasma urea nitroge n measurement (mass/volume)Ordered By: Dr. Whiteside on 12-06-2022 Urea nitrogen [Mass/Vol] 23 mg/dL 7- [facility] Thin prep Papanicolaou smear with manual screeningOrdered By: Dr. Whiteside on 12-06-2022 Thin prep Papanicolaou smear with manual screening 11 - [facility] ANES POSTPROC EVALon 020 ANES POSTPROC EVAL HNO ID: [id number] Author: Raiza Negron Service: ? Author Type: Anesthesiologist Type: Anesthesia Postprocedure Evaluation Filed: 09/03/2020 6:07 PM Note Text: POST ANESTHESIA EVALUATION NOTE : 1970 Procedure Summary Date: 09/03/20 Room / Location: [place] / [place] Anesthesia Start: 1619 Anesthesia Stop: 1746 [...] September 03, 2020 TIME: 6:06 PM CSN: [id number] [facility] ANES PRE-OPon 09-03-2020 ANES PRE-OP HNO ID: [id number] Author: Raiza Negron Service: ? Author Type: [...] BiPAP CARDIO (+) Coronary artery disease involving [place] coronary artery of [place] heart (+) DVT of lower extremity (deep [...] September 03, 2020 TIME: 4:02 PM CSN: [id number] [facility] OPERATIVE NOon 09-03-2020 OPERATIVE NO HNO ID: [id number] Author: Eileen Saha Service: Urology Author Type: Physician Type: Operative Report Filed: 09/03/2020 5:42 PM Note Text: OPERATIVE/PROCEDURE REPORT LOG ID: [id number] Surgery/Procedure Date: 09/03/2020 Incision/Procedure Start Time: 4:41 PM Incision Close/Procedure End Time: 5:40 PM Surgeon(s)/Procedura list(s) and Senior Data Warehouse Developer(s): Surgeon(s) and Role: * Eileen Saha - [...] 09/03/2020 5:02 PM Implantable Devices: None Drains: [place] Complications: None Anatomic Site: N/A Approach: Open Qualifier: None I/primary surgeon/proceduralis t performed the procedure with assistance. SIGNATURE: Eileen Saha MD PATIENT NAME: Elile Souza DATE: September 03, 2020 TIME: 5:40 PM PAGER/CONTACT #: [phone] [facility] SURGICAL PATHOLOGYon CASE REPORT Normal [facility] Comment on above: Order Comment: Speci men Type: TISSUE SPECIMEN Result Comment: Surg ica Pathology Report Case: [id number] Authorizing Provider: Eileen Saha Collected: 09/03/2020 05:02 PM Ordering Location: [place] [facility] Received: 09/04/2020 06:58 AM Pathologist: Vilma Oakes MD Specimen: HYDROCELE SAC RIGHT Performed By: #### S #### [facility] CLIA [id number] [address] [place] [address] [facility] Comment on above: Order Comment: Speci men Type: TISSUE SPECIMEN Result Comment: Righ t inguinal tissue, excision Fibromembranous tissue with mesothelial lining compatible with hydrocele sac. Performed By: #### S #### [facility] CLIA [id number] [address] [place] [address] FINAL PERFORMING LAB Normal [facility] Comment on above: Order Comment: Speci men Type: TISSUE SPECIMEN Result Comment: Diag nostic interpretation performed at [facility], [address] [place] [address] CLIA# [id number] Research Laboratory Technician: Tyrone Douglass M.D. Performed By: #### S #### [facility] CLIA [id number] [address] [place] [address] GROSS DESCRIPTION Normal [facility] Comment on above: Order Comment: Speci men Type: TISSUE SPECIMEN Result Comment: Nellie Gilmore YDROCELE SAC RIGHT. Received in formalin labeled right hydrocele sac is a pink membranous segment of tissue measuring 6.5 x 3.5 x 1.3 cm. One side is smooth and glistening the other side is slightly roughened. The specimen is sectioned. [employer]ing [employer] sections are submitted in formalin in 1 cassette. KVB/louise Gross examination performed at [facility], [address] [place] [address] CLIA# [id number] Performed By: #### S #### [facility] CLIA [id number] [address] [place] [address] XR FEMUR MINIMUM 2 VIEWS LEF Ton [...] AM Sign Date: 09/03/2020 10:22:08 AM [facility] [place] XR SPINE LUMBOSACRAL 2 OR 3 VIEWSon [...] Date: 09/03/2020 10:16:56 AM Ordering Provider:Mesfin Conteh [facility] ([place]) Javy 09-02-2020 CNPN Telephone (UROLAE) ELIEL SOUZA ([id number]) 1970 Date Time Provider Department 09/02/20 EILEEN [...] without c*07/05/2014 More... Coronary artery disease involving [place]*07/05/2014 More... Obstructive sleep apnea treated with [...] Status:Closed by MARIE RUSH on 09/02/20 Normal [facility] HISTORY PHYSICALon 0 HISTORY PHYSICAL HNO ID: [id number] Author: Rachelle Herrera Service: ? Author Type: Nurse Practitioner Type: HANDP Filed: 08/27/2020 12:18 PM Note Text: HISTORY AND PHYSICAL EXAMINATION SERVICE DATE: 08/27/2020 SERVICE TIME: 11:34 AM PRIMARY CARE PHYSICIAN: Americo Borrego MD The patient has the following: ACTIVE PROBLEM LIST Depression Asthma Morbid Obesity ([facility]) Gerd (Gastroesophageal Reflux Disease) Benign Prostatic Hyperplasia History of Smoking Cervical Disc Displacement Hyperlipidemia Fatty Liver Cholecystitis Chronic H. Pylori Infection Unspecified Gastritis and Gastroduodenitis Without Mention of Hemorrhage Duodenitis Without Mention of Hemorrhage Blood in Stool DVT of lower extremity (deep venous thrombosis) ([facility]) Rib Fracture Fracture, Femur ([facility]) Calcaneal Spur Lateral Epicondylitis Abdominal Pain, Epigastric Copd (Chronic Obstructive Pulmonary Disease) ([facility]) Diabetes Mellitus Type 2, Controlled, Without Complications ([facility]) Coronary Artery Disease Involving Nikolai Coronary Artery of Nikolai Heart Obstructive Sleep Apnea Treated With Bipap Copd With Exacerbation ([facility]) Essential Hypertension Llq Abdominal Pain Diverticulitis Morbid Obesity With Bmi of 45.0-49.9, Adult ([facility]) Post-Op Pain Ileostomy in Place ([facility]) Nicotine use disorder, F17.2 Subjective CHIEF COMPLAINT: [...] Diagnosis Date - CAD (coronary artery disease), [place] coronary artery 2014 No PCI indicated. no machine cage maker needed - Closed fracture of femur ([facility]) 11/2010 - Depressive disorder, not elsewhere classified - Diabetes mellitus type 2 in obese ([facility]) - DVT of lower extremity (deep venous thrombosis) ([facility]) 11/2010 left - Esophageal reflux - Essential hypertension - CATY (obstructive sleep apnea) CPAP needs another sleep study machine set too high - Pelvic fracture ([facility]) - Seasonal allergic rhinitis - Unspecified asthma(493.90) Diagnosed in 20s. PAST SURGICAL HISTORY Procedure Laterality Date - COLONOSCOP W/ OR W/O [facility] SPEC 11/04/10 Normal colon - COLONOSCOP W/ OR W/O [facility] SPEC 01/21/16 few diverticula - EGD W/O [facility] SPECIMEN W/BX 11/04/10 duodenitis - EGD [...] albuterol for rescue CAD -no stents no machine cage maker Diabetes -last A1c 7.1 uses insulin Invokana [...] Tests/Procedures Have Been Initiated: C-19 ordered in [facility] by surgeon CONSULTS: No Consults Pending Planned Anesthetic: General Instructions Given to Patient: Patient given verbal and written preop instructions and voices comprehension/compli ance. This note has been produced using [email or web address] speech recognition software and may contain errors to the system including grammar, punctuation, spelling, gender and words and phrases that may be inappropriate. SIGNATURE: Rachelle Herrera APRN.GISSELL PATIENT NAME: Eliel Souza DATE: August 27, 2020 TIME: 11:34 AM PAGER/CONTACT #: [facility] Javy 08-18-2020 [facility] Telephone (UROLAE) GONZALOELIEL CRAWLEY ([id number]) 1970 M Date Time Provider Department 08/18/20 [...] without c*07/05/2014 More... Coronary artery disease involving kivalina ragland*07/05/2014 More... Obstructive sleep apnea treated with [...] Encounter Status:Closed by MARIE RUSH on 08/19/20 [facility] HOSPon 08-15-2020 HOSP Patient:Olman Souza jase [...] List: Depression [F32.9] Asthma [J45.909] Morbid obesity ([facility]) [E66.01] GERD (gastroesophageal reflux disease) [K21.9] Benign prostatic hyperplasia [N40.0] History of smoking [Z87.891] Cervical disc displacement [M50.20] Hyperlipidemia [E78.5] Fatty liver [K76.0] Cholecystitis chronic [] H. pylori infection [A04.8] Unspecified gastritis and gastroduodenitis without mention of hemorrhage [K29.70, K29.90] Duodenitis without mention of hemorrhage [K29.80] Blood in stool [K92.1] DVT of lower extremity (deep venous thrombosis) ([facility]) [I82.409] Rib fracture [S22.39XA] Fracture, femur ([facility]) [S72.90XA] Calcaneal spur [M77.30] Lateral epicondylitis [M77.10] Abdominal pain, epigastric [R10.13] COPD (chronic obstructive pulmonary disease) ([facility]) [J44.9] Diabetes mellitus type 2, controlled, without complications ([facility]) [E11.9] Coronary artery disease involving k[place] coronary artery of [place]ina heart [I25.10] Obstructive sleep apnea treated with BiPAP [G47.33] COPD with exacerbation ([facility]) [J44.1] Essential hypertension [I10] LLQ abdominal pain [R10.32] Diverticulitis [K57.92] Morbid obesity with BMI of 45.0-49.9, adult ([facility]) [E66.01, Z68.42] Post-op pain [G89.18] Ileostomy in place ([facility]) [Z93.2] Nicotine use disorder, F17.2 [F17.200] [...] and COVID test with Dr. Saha Normal [facility] CNOVon 07-23-2020 CNOV Office Visit (AKURFL) ELIEL SOUZA ([id number]) 1970 M Date Time Provider Department 07/23/20 1:45 PM REKHA BROWN During your visit today, we recorded the following information about you: Blood pressure Weight Height 122/80 149.7 kg 1.803 m Rekha [facility] DO, MBA 07/23/2020 3:42 PM Signed ?? [facility] [place] [facility] UROLOGY LOCATION: [address] [place] [address] NEW PATIENT HISTORY AND PHYSICAL EXAM PATIENT [...] 72.8 Lymph% (%) Date Value 12/15/2015 20.8 Tensas% (%) Date Value 12/15/2015 4.5 Eosin% (%) Date Value 12/15/2015 1.4 Baso% (%) Date Value 12/15/2015 0.5 Abs Neut (ANC) (k/uL) Date Value 12/15/2015 8.33 (H) Abs Tensas (k/uL) Date Value 12/15/2015 0.52 Abs Eosin [...] 11/10/2019 5.0 4.5 - 8.0 Final Specific Deposit, Ur Date Value Ref Range Status 11/10/2019 [...] Diagnosis Date - CAD (coronary artery disease), k[place]ina coronary artery 2014 No PCI indicated. - Closed fracture of femur ([facility]) 11/2010 - Depressive disorder, not elsewhere classified - Diabetes mellitus type 2 in obese ([facility]) - DVT of lower extremity (deep venous thrombosis) ([facility]) 11/2010 - Esophageal reflux - Essential hypertension - CATY (obstructive sleep apnea) - Pelvic fracture ([facility]) - Seasonal allergic rhinitis - Unspecified [...] specific antigen) [Z12.5] Order(s):UA DIP, URINE (POC) [[id number]] Order #: [id number]. #:[id number] PSA/PROSTSPECAG SCRN [SQPSAS1] Order #: [id number] FUTURE Prescriptions as of 07/23/2020 Sig: LISINOPRIL [...] without c*07/05/2014 More... Coronary artery disease involving k[place] ragland*07/05/2014 More... Obstructive sleep apnea treated with [...] Encounter Status:Closed by REKHA BROWN on 07/23/20 [facility] PROGRESSon 07-23-2020 PROGRESS HNO ID: [id number] Author: Rekha Brown Service: ? Author Type: Physician Type: Progress Notes Filed: 07/23/2020 3:42 PM Note Text: ?? [facility] UROLOGY LOCATION: [address] [place] [address] NEW PATIENT HISTORY AND PHYSICAL EXAM PATIENT [...] 72.8 Lymph% (%) Date Value 12/15/2015 20.8 Tensas% (%) Date Value 12/15/2015 4.5 Eosin% (%) Date Value 12/15/2015 1.4 Baso% (%) Date Value 12/15/2015 0.5 Abs Neut (ANC) (k/uL) Date Value 12/15/2015 8.33 (H) Abs Tensas (k/uL) Date Value 12/15/2015 0.52 Abs Eosin [...] 11/10/2019 5.0 4.5 - 8.0 Final Specific Deposit, Ur Date Value Ref Range Status 11/10/2019 [...] Diagnosis Date - CAD (coronary artery disease), k[place] coronary artery 2015 No PCI indicated. - Closed fracture of femur ([facility]) 11/2010 - Depressive disorder, not elsewhere classified - Diabetes mellitus type 2 in obese ([facility]) - DVT of lower extremity (deep venous thrombosis) ([facility]) 11/2010 - Esophageal reflux - Essential hypertension - CATY (obstructive sleep apnea) - Pelvic fracture ([facility]) - Seasonal allergic rhinitis - Unspecified asthma(493.90) Diagnosed in 20s. PAST SURGICAL HISTORY Procedure Laterality Date - COLONOSCOP W/ OR W/O [facility] SPEC 11/04/10 Normal colon - COLONOSCOP W/ OR W/O [facility] SPEC 01/21/16 few diverticula - EGD W/O [facility] SPECIMEN W/BX 11/04/10 duodenitis - EGD W/O [facility] SPECIMEN W/BX 01/21/16 minimal gastritis - [...] MBA Date: 07/23/2020 Time: 3:37 PM Normal [facility] Vital Signs Date Time Vital Sign Value Performing Clinician Facility 07-06-2025 18:04-0400 Body temperature 97.9 [degF] Dr. Americo Borrego MD Work Phone: [facility] 07-06-2025 18:04-0400 Diastolic blood pressure 74 mm[Hg] Dr. Americo Borrego MD Work Phone: [facility] 07-06-2025 18:04-0400 Heart rate 76 /min Dr. Americo Borrego MD Work Phone: [facility] 07-06-2025 18:04-0400 Respiratory rate 19 /min Dr. Americo Borrego MD Work Phone: 4(276)[phone] [place] [address] 07-06-2025 18:04-0400 SaO2% (BldA) [Mass fraction] 98 % Dr. Americo Borrego MD Work Phone: 7(251)834-930655 [place] [address] 07-06-2025 18:04-0400 Systolic blood pressure 135 mm[Hg] Dr. Americo Borrego MD Work Phone: 4(072)992-136455 [place] [address] 07-06-2025 15:02-0400 Body height 177.[address] Americo Borrego MD Work Phone: 0(297)100-585455 [place] [address] 07-06-2025 15:02-0400 Body mass index (BMI) [Ratio] 40.1 kg/m2 Dr. Americo Borrego MD Work Phone: 2(142)296-942907 [address] 07-06-2025 15:02-0400 Body weight [address] Americo Borrego MD Work Phone: [facility] 04-12-2025 11:30-0400 Body mass index (BMI) [Ratio] 38.77 kg/m2 Americo Borrego MD Work Phone: [facility] 04-12-2025 11:30-0400 Body weight 126.1 kg Americo Borrego MD Work Phone: [facility] 04-12-2025 11:30-0400 Diastolic blood pressure 72 mm[Hg] Americo Borrego MD Work Phone: [facility] 04-12-2025 11:30-0400 Heart rate 76 /min Americo Borrego MD Work Phone: [facility] 04-12-2025 11:30-0400 Respiratory rate 18 /min Americo Borrego MD Work Phone: [facility] 04-12-2025 11:30-0400 SaO2% (BldA) [Mass fraction] 96 % Americo Borrego MD Work Phone: [facility] 04-12-2025 11:30-0400 Systolic blood pressure 124 mm[Hg] Americo Borrego MD Work Phone: [facility] 01-08-2025 10:59-0400 Body mass index (BMI) [Ratio] 38.04 kg/m2 Americo Borrego MD Work Phone: [facility] 01-08-2025 10:59-0400 Body weight 123.7 kg Americo Borrego MD Work Phone: [facility] 01-08-2025 10:59-0400 Diastolic blood pressure 80 mm[Hg] Americo Borrego MD Work Phone: [facility] 01-08-2025 10:59-0400 Heart rate 76 /min Americo Borrego MD Work Phone: [facility] 01-08-2025 10:59-0400 Respiratory rate 18 /min Americo Borrego MD Work Phone: [facility] 01-08-2025 10:59-0400 Systolic blood pressure 126 mm[Hg] Americo Borrego MD Work Phone: [facility] 08-24-2024 10:34-0500 Body mass index (BMI) [Ratio] 38.9 kg/m2 Americo Borrego MD Work Phone: [facility] 08-24-2024 10:34-0500 Body weight 126.5 kg Americo Borrego MD Work Phone: [facility] 08-24-2024 10:34-0500 Diastolic blood pressure 70 mm[Hg] Americo Borrego MD Work Phone: [facility] 08-24-2024 10:34-0500 Heart rate 68 /min Americo Borrego MD Work Phone: [facility] 08-24-2024 10:34-0500 Respiratory rate 18 /min Americo Borrego MD Work Phone: [facility] 08-24-2024 10:34-0500 SaO2% (BldA) [Mass fraction] 97 % Americo Borrego MD Work Phone: [facility] 08-24-2024 10:34-0500 Systolic blood pressure 110 mm[Hg] Americo Borrego MD Work Phone: [facility] 05-22-2024 09:32-0400 Body mass index (BMI) [Ratio] 38.56 kg/m2 Americo Borrego MD Work Phone: [facility] 05-22-2024 09:32-0400 Body temperature 97.39 [degF] Americo Borrego MD Work Phone: [facility] 05-22-2024 09:32-0400 Body weight 125.4 kg Americo Borrego MD Work Phone: [facility] 05-22-2024 09:32-0400 Diastolic blood pressure 62 mm[Hg] Americo Borrego MD Work Phone: [facility] 05-22-2024 09:32-0400 Heart rate 82 /min Americo Borrego MD Work Phone: [facility] 05-22-2024 09:32-0400 Respiratory rate 18 /min Americo Borrego MD Work Phone: [facility] 05-22-2024 09:32-0400 Systolic blood pressure 104 mm[Hg] Americo Borrego MD Work Phone: [facility] 05-14-2024 14:09-0400 Body mass index (BMI) [Ratio] 38.59 kg/m2 Matilde Moomaw MEDICAL BILLING SUPERVISOR.MATERIAL ENGINEER Work Phone: [facility] 05-14-2024 14:09-0400 Body temperature 97.5 [degF] Matilde Moomaw MEDICAL BILLING SUPERVISOR.MATERIAL ENGINEER Work Phone: [facility] 05-14-2024 14:09-0400 Body weight 125.5 kg Matilde Moomaw MEDICAL BILLING SUPERVISOR.MATERIAL ENGINEER Work Phone: [facility] 05-14-2024 14:09-0400 Diastolic blood pressure 74 mm[Hg] Matilde Moomaw MEDICAL BILLING SUPERVISOR.MATERIAL ENGINEER Work Phone: [facility] 05-14-2024 14:09-0400 Heart rate 95 /min Matilde Moomaw MEDICAL BILLING SUPERVISOR.MATERIAL ENGINEER Work Phone: [facility] 05-14-2024 14:09-0400 Respiratory rate 21 /min Matilde Moomaw MEDICAL BILLING SUPERVISOR.MATERIAL ENGINEER Work Phone: [facility] 05-14-2024 14:09-0400 SaO2% (BldA) [Mass fraction] 97 % Matilde Moomaw MEDICAL BILLING SUPERVISOR.MATERIAL ENGINEER Work Phone: [facility] 05-14-2024 14:09-0400 Systolic blood pressure 108 mm[Hg] Matilde Moomaw MEDICAL BILLING SUPERVISOR.MATERIAL ENGINEER Work Phone: [facility] 02-20-2024 12:46-0400 Body mass index (BMI) [Ratio] 40.61 kg/m2 Americo Borrego MD Work Phone: [facility] 02-20-2024 12:46-0400 Body weight 132.09 kg Americo Borrego MD Work Phone: [facility] 02-20-2024 12:46-0400 Diastolic blood pressure 74 mm[Hg] Americo Borrego MD Work Phone: [facility] 02-20-2024 12:46-0400 Heart rate 76 /min Americo Borrego MD Work Phone: [facility] 02-20-2024 12:46-0400 Respiratory rate 18 /min Americo Borrego MD Work Phone: [facility] 02-20-2024 12:46-0400 Systolic blood pressure 110 mm[Hg] Americo Borrego MD Work Phone: [facility] 01-29-2024 03:17-0400 Respiratory rate 17 /min [facility] 01-29-2024 03:17-0400 SaO2% (BldA) [Mass fraction] 99 % [facility] 01-29-2024 03:16-0400 Body temperature 97.4 [degF] [facility] 01-29-2024 03:16-0400 Diastolic blood pressure 65 mm[Hg] [facility] 01-29-2024 03:16-0400 Heart rate 82 /min [facility] 01-29-2024 03:16-0400 Systolic blood pressure 117 mm[Hg] [facility] 01-29-2024 00:03-0400 Body height 180.34 cm [facility] 01-29-2024 00:03-0400 Body mass index (BMI) [Ratio] 42.9 kg/m2 [facility] 01-29-2024 00:03-0400 Body weight 139.6 kg [facility] 11-26-2023 11:15-0500 Body temperature 97.59 [degF] Emil Luo MD Work Phone: [facility] 11-26-2023 11:15-0500 Body weight 134.45 kg Emil Luo MD Work Phone: [facility] 11-26-2023 11:15-0500 Diastolic blood pressure 90 mm[Hg] Emil Luo MD Work Phone: [facility] 11-26-2023 11:15-0500 Heart rate 94 /min Emil Luo MD Work Phone: [facility] 11-26-2023 11:15-0500 Respiratory rate 22 /min Emil Luo MD Work Phone: [facility] 11-26-2023 11:15-0500 SaO2% (BldA) [Mass fraction] 97 % Emil Luo MD Work Phone: [facility] 11-26-2023 11:15-0500 Systolic blood pressure 120 mm[Hg] Emil Luo MD Work Phone: [facility] 09-21-2023 15:52-0500 Body temperature 97.39 [degF] Chen Souza APRN.CNP Work Phone: [facility] 09-21-2023 15:52-0500 Body weight 134.63 kg Chen Souza MEDICAL BILLING SUPERVISOR.MATERIAL ENGINEER Work Phone: [facility] 09-21-2023 15:52-0500 Diastolic blood pressure 90 mm[Hg] Chen Harley MEDICAL BILLING SUPERVISOR.MATERIAL ENGINEER Work Phone: [facility] 09-21-2023 15:52-0500 Heart rate 89 /min Chen Souza MEDICAL BILLING SUPERVISOR.MATERIAL ENGINEER Work Phone: [facility] 09-21-2023 15:52-0500 Respiratory rate 26 /min Chen Souza MEDICAL BILLING SUPERVISOR.MATERIAL ENGINEER Work Phone: [facility] 09-21-2023 15:52-0500 SaO2% (BldA) [Mass fraction] 96 % Chen Souza MEDICAL BILLING SUPERVISOR.MATERIAL ENGINEER Work Phone: [facility] 09-21-2023 15:52-0500 Systolic blood pressure 139 mm[Hg] Chen Souza MEDICAL BILLING SUPERVISOR.MATERIAL ENGINEER Work Phone: [facility] 06-29-2023 13:52-0400 Body weight 137.89 kg Malika Sethi MEDICAL BILLING SUPERVISOR.MATERIAL ENGINEER Work Phone: [facility] 06-29-2023 13:52-0400 Diastolic blood pressure 70 mm[Hg] Malika Romerof MEDICAL BILLING SUPERVISOR.MATERIAL ENGINEER Work Phone: [facility] 06-29-2023 13:52-0400 Heart rate 80 /min Malika Romerof MEDICAL BILLING SUPERVISOR.MATERIAL ENGINEER Work Phone: [facility] 06-29-2023 13:52-0400 Respiratory rate 16 /min Malika Meadowshof MEDICAL BILLING SUPERVISOR.MATERIAL ENGINEER Work Phone: [facility] 06-29-2023 13:52-0400 SaO2% (BldA) [Mass fraction] 97 % Malika Romerof MEDICAL BILLING SUPERVISOR.MATERIAL ENGINEER Work Phone: [facility] 06-29-2023 13:52-0400 Systolic blood pressure 110 mm[Hg] Malika Meadowshof MEDICAL BILLING SUPERVISOR.MATERIAL ENGINEER Work Phone: [facility] 12-06-2022 15:01-0500 Diastolic blood pressure 78 mm[Hg] [facility] 12-06-2022 15:01-0500 Heart rate 81 /min [facility] 12-06-2022 15:01-0500 Respiratory rate 16 /min [facility] 12-06-2022 15:01-0500 SaO2% (BldA) [Mass fraction] 98 % [facility] 12-06-2022 15:01-0500 Systolic blood pressure 135 mm[Hg] [facility] 12-06-2022 11:19-0500 Body height 180.34 cm [facility] 12-06-2022 11:19-0500 Body mass index (BMI) [Ratio] 40.1 kg/m2 [facility] 12-06-2022 11:19-0500 Body temperature 97.4 [degF] [facility] 12-06-2022 11:19-0500 Body weight 130.4 kg [facility] Encounters Encounter Date Encounter Type Care Provider Facility Start: 08-18-2025 End: 08-18-2025 Emergency department patient visit Americo Borrego Facility:[facility] Start: 07-06-2025 End: 07-06-2025 Emergency department patient visit Dr. Melissa Holly DO -Emergency Department Work Phone: Start: 06-13-2025 End: 06-14-2025 Refill Americo Borrego MD Work Phone: [address] [place] [address] Comment on above: Refill Request Start: 04-12-2025 End: 04-12-2025 Office outpatient visit 25 minutes Americo Borrego MD Work Phone: [facility] [place] Comment on above: Type 2 diabetes shashank itus with hyperglycemia, with long-term current use of insulin (HCC) (Primary Dx); Depression, unspecified depression type; Mild asthma without complication, 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 persistent (HCC); Hyperlipidemia, unspecified hyperlipidemia type; Obstructive sleep apnea treated with BiPAP; Essential hypertension Start: 04-12-2025 End: 04-12-2025 ambulatory AMERICO BORREGO Facility:[facility] Start: 04-06-2025 End: 04-06-2025 ambulatory AMERICO BORREGO Facility:[facility] Start: 01-08-2025 End: 01-08-2025 ambulatory [facility] Facility:[facility] Start: 01-08-2025 End: 01-08-2025 Office outpatient visit 25 minutes Americo Borrego MD Work Phone: [facility] [place] Comment on above: Type 2 diabetes shashank itus without complication, 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 long-term insulin use (HCC) (Primary Dx); Essential hypertension; Hyperlipidemia, unspecified hyperlipidemia type; Depression, unspecified depression type; FAISAL (generalized anxiety disorder); Gastroesophageal reflux disease, 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 esophagitis present; Mild asthma without complication, 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 persistent; Obstructive sleep apnea treated with BiPAP; Chronic obstructive pulmonary disease, unspecified COPD type (HCC); History of ileostomy Start: 12-22-2024 End: 12-22-2024 [facility] Start: 12-10-2024 End: 01-24-2025 Telephone encounter Dean Goldberg APRN.CNP Work Phone: Administration Comment on above: Medication Problem ( Med Refills) Start: 09-28-2024 End: 09-28-2024 Refill Americo Borrego MD Work Phone: [facility] [place] Comment on above: Refill Request Start: 09-12-2024 End: 09-12-2024 ambulatory Gem Perez RN [facility] [place] Start: 09-12-2024 End: 09-12-2024 Patient encounter procedure Gem Perez RN [facility] Comment on above: TYLER SCHAEFER RN ( Medication Adherence Review at request of payer) Start: 08-27-2024 End: 08-27-2024 Telephone encounter Americo Borrego MD Work Phone: [facility] Comment on above: Medication Problem Start: 08-24-2024 End: 08-24-2024 ambulatory AMERICO BORREGO Facility:[facility] Start: 08-24-2024 End: 08-24-2024 Patient encounter [...] 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 persistent; Coronary artery disease involving [place] coronary artery of [place] heart without angina pectoris; Obstructive sleep apnea treated with BiPAP; Essential hypertension Start: 08-22-2024 End: 08-22-2024 ambulatory Malu Tirado MA [facility] [place] Start: 08-22-2024 End: 08-22-2024 Patient encounter procedure Malu Tirado MA [facility] Comment on above: Population Health Na vigation Outreach ([facility]) Start: 08-11-2024 End: 08-11-2024 ambulatory [facility] Facility:[facility] Start: 06-06-2024 End: 06-06-2024 Refill Americo Borrego MD Work Phone: [facility] [place] Comment on above: Refill Request Start: 05-22-2024 End: 05-22-2024 ambulatory [facility] Facility:[facility] Start: 05-22-2024 End: 05-22-2024 Patient encounter procedure Americo Borrego MD Work Phone: [facility] [place] Comment on above: Hospital discharge f ollow-up (Primary Dx); Type 2 diabetes mellitus without complication, 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 long-term insulin use (HCC); Essential hypertension; Hyperlipidemia, unspecified hyperlipidemia type; Depression, unspecified depression type; FAISAL (generalized anxiety disorder); Mild intermittent asthma without complication; Chronic obstructive pulmonary disease, unspecified COPD type (HCC); Gastroesophageal reflux disease, 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 esophagitis present; History of ileostomy; Encounter for screening examination for other mental health and behavioral disorders Start: 05-14-2024 End: 05-14-2024 ambulatory [facility] Facility:[facility] Start: 05-14-2024 End: 05-14-2024 Patient encounter procedure Matilde Gan APRN.CNP Work Phone: [facility] Comment on above: Left lower quadrant abdominal pain (Primary Dx) Start: 05-09-2024 End: 05-09-2024 ambulatory AMERICO BORREGO Facility:[facility] Start: 03-23-2024 Refill Americo walls MD Work Phone: [facility] Comment on above: Refill Request Start: 02-29-2024 Telephone encounter Margarita Moctezuma patti [facility] Work Phone: [facility] Comment on above: Appointment Start: 02-21-2024 Telephone encounter Kandace Bello send [facility] Comment on above: NEW PRIMARY CARE PHA RMACY APPT Start: 02-20-2024 End: 02-20-2024 Patient encounter procedure Americo Borrego MD Work Phone: [facility] Comment on above: Type 2 diabetes shashank itus without complication, 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 long-term insulin use (HCC) (Primary Dx); Essential hypertension; [...] 01-29-2024 End: 01-29-2024 Emergency department patient visit [facility]gency [facility] Work Phone: Start: 01-25-2024 Refill Ameirco walls MD Work Phone: [facility] Comment on above: Refill Request Start: 11-30-2023 Refill Americo walls MD Work Phone: [facility] Comment on above: Refill Request Start: 11-26-2023 End: 11-26-2023 Patient encounter procedure Emil Luo MD Work Phone: [facility] Comment on above: Asthma with COPD wit h exacerbation (HCC) (HCC) (Primary Dx) Refill Request Start: 11-21-2023 Telephone encounter Americo springer MD Work Phone: [facility] [place] Comment on above: Excuse from Jury Dut y- Letter Start: 09-21-2023 End: 09-21-2023 Subsequent hospital visit by physician [facility] [place] Work Phone: Radiology Comment on above: SOB (shortness of br eath) [R06.02] Start: 09-21-2023 End: 09-21-2023 Patient encounter procedure Chen Souza APRN.MATERIAL ENGINEER Work Phone: [facility] Comment on above: SOB (shortness of br eath) (Primary Dx); COPD with exacerbation (HCC) Start: 08-24-2023 Telephone encounter Americo springer MD Work Phone: [facility] [place] Comment on above: chest cold Refill Request Start: 06-29-2023 End: 06-29-2023 Patient encounter procedure Malika Sethi APRN.MATERIAL ENGINEER Work Phone: [facility] [place] Comment on above: Type 2 diabetes shashank itus without complication, 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 (HCC) (Primary Dx); Essential hypertension; Hyperlipidemia, unspecified hyperlipidemia type; Depression, unspecified depression type; FAISAL (generalized anxiety disorder); Chronic obstructive pulmonary disease, unspecified COPD type (HCC); Gastroesophageal reflux disease, 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 esophagitis present; Obstructive sleep apnea treated with BiPAP; Encounter for screening for lung cancer Start: 06-24-2023 Refill Americo walls MD Work Phone: [facility] Comment on above: Refill Request Start: 06-16-2023 Telephone encounter Americo springer MD Work Phone: [facility] Comment on above: Medication Problem Start: 04-25-2023 Refill Americo walls MD Work Phone: [facility] Comment on above: Refill Request Start: 12-25-2022 Refill Americo walls MD Work Phone: [facility] Comment on above: Refill Request Start: 12-06-2022 End: 12-06-2022 Emergency department patient visit [facility]Emergency Department Start: 11-26-2022 Refill Dean RIVERA RN.MATERIAL ENGINEER Work Phone: [facility] Comment on above: Refill Request Start: 07-09-2022 Refill Americo walls MD Work Phone: Family [facility] Comment on above: Refill Request; Refi ll Request Start: 07-04-2022 Refill Dean RIVERA RN.MATERIAL ENGINEER Work Phone: [facility] Comment on above: Refill Request Start: 06-30-2022 Telephone encounter Americo springer MD Work Phone: [facility] Comment on above: Insurance Authorizat ion ([employer] HFA) Start: 06-28-2022 Telephone encounter Americo springer MD Work Phone: [facility] Comment on above: Rx refill; not on cu rrent med list Start: 06-02-2022 Telephone encounter Americo springer MD Work Phone: [facility] Comment on above: Patient Update (Plea se fill his inhaler as soon as possible, ); Patient Question Start: 01-07-2022 End: 01-07-2022 ambulatory Americo Borrego MD Work Phone: [facility] Comment on above: Chronic obstructive pulmonary disease with acute exacerbation (HCC) (Primary Dx) Start: 01-07-2022 End: 01-07-2022 Telemedicine consultation with patient Americo Borrego MD Work Phone: [facility] Start: 01-04-2022 Telephone encounter Americo springer MD Work Phone: [facility] Comment on above: Question Procedures Date Procedure Procedure Detail Performing Clinician Start: 07-06-2025 Radiologic exam ches t [address] Americo Borrego MD Work Phone: Start: 01-29-2024 SARS-CoV-2, Influenz a & RSV (PCR) Start: 01-29-2024 Plain chest X-ray Start: 09-21-2023 Radiologic exam ches t 2 views Chen Harley MEDICAL BILLING SUPERVISOR.MATERIAL ENGINEER Work Phone: Start: 11-02-2019 Colonoscopy Americo pulido MD Work Phone: H/O: ileostomy History of ileostomy Americo Borrego MD Work Phone: H/O: ileostomy History of ileostomy Americo Borrego MD Work Phone: H/O: ileostomy History of ileostomy Americo Borrego MD Work Phone: Plan of Treatment Date Care Activity Detail Author Start: 05-16-2031 Urine microalbumin profile [facility] Start: 11-02-2029 Colonoscopy COLONOSCOPY [facility] Start: 11-02-2029 COLORECTAL CANCER SCREENING COLORECTAL CANCER SCREENING [facility] Start: 11-02-2029 Screening for malignant neoplasm of colon [facility] Start: 04-12-2026 Annual PCP Team Chronic Disease Visit Annual PCP Team Chronic Disease Visit [facility] Start: 04-12-2026 Pneumococcal Vaccine: 50+ (2 of 2 - PCV) Pneumococcal Vaccine: 50+ (2 of 2 - PCV) [facility] Comment on above: Postponed from 11/13/2020 (Declined at t his time) Start: 04-06-2026 Hepatitis B surface antibody level LDL Cholesterol [facility] Start: 02-09-2026 Prostate Cancer Screening Discussion Prostate Cancer Screening Discussion [facility] Start: 02-09-2026 Prostate specific antigen measurement Prostate Cancer Screening Discussion [facility] Start: 01-08-2026 Annual PCP Team Chronic Disease Visit Annual PCP Team Chronic Disease Visit [facility] Start: 12-22-2025 Hepatitis B surface antibody level LDL Cholesterol [facility] Start: 12-16-2025 End: 12-16-2025 Patient encounter procedure 12/16/2025 4:20 PM EST Office Visit [facility] [address] [place] [id number] Danielle Cedillo MD [address] [place] [id number] 6 month f/u [facility] Comment on above: 6 month f/u Start: 10-24-2025 Glaucoma screening Dilated Retinal Exam [facility] Start: 10-06-2025 Hemoglobin A1c measurement HbA1C [facility] Start: 08-24-2025 Annual PCP Team Chronic Disease Visit Annual PCP Team Chronic Disease Visit [facility] Start: 08-24-2025 BP Controlled (<130/80) BP Controlled (<130/80) [facility] Start: 08-24-2025 Covid-19 Vaccine () Covid-19 Vaccine () [facility] Comment on above: Postponed from 06/17/2024 (Declined at t his time) Start: 07-16-2025 End: 07-16-2025 Patient encounter procedure 07/16/2025 11:00 AM EDT Office Visit [facility] [address] [place] [address] Americo Borrego MD [address] [place] [address] 3 month follow up [facility] Comment on above: 3 month follow up Start: 07-13-2025 End: 10-12-2025 Comprehensive metabolic 2000 panel - Serum or Plasma COMPREHENSIVE METABOLIC PANEL Lab Routine Hyperlipidemia, unspecified hyperlipidemia type Type 2 diabetes mellitus with hyperglycemia, with long-term current use of insulin (HCC) Essential hypertension Expected: 07/13/2025 (Approximate), Expires: 10/12/2025 [facility] Work Phone: Comment on above: Expected: 07/13/2025 (Approximate), Expi res: 10/12/2025 Start: 07-13-2025 End: 10-12-2025 Hemoglobin A1c in Blood HEMOGLOBIN A1C Lab Routine Type 2 diabetes mellitus with hyperglycemia, with long-term current use of insulin (HCC) Expected: 07/13/2025 (Approximate), Expires: 10/12/2025 [facility] Comment on above: Expected: 07/13/2025 (Approximate), Expi res: 10/12/2025 Start: 07-13-2025 End: 10-12-2025 Lipid 1996 panel - Serum or Plasma LIPID PANEL, FASTING Lab Routine Hyperlipidemia, unspecified hyperlipidemia type Type 2 diabetes mellitus with hyperglycemia, with long-term current use of insulin (HCC) Essential hypertension Expected: 07/13/2025 (Approximate), Expires: 10/12/2025 [facility] Comment on above: Expected: 07/13/2025 (Approximate), Expi res: 10/12/2025 Start: 06-17-2025 Influenza vaccination [facility] Start: 05-22-2025 Annual PCP Team Chronic Disease Visit Annual PCP Team Chronic Disease Visit [facility] Start: 05-22-2025 Anxiety Screening Anxiety Screening [facility] Start: 05-22-2025 BP Controlled (<130/80) BP Controlled (<130/80) [facility] Start: 05-14-2025 BP Controlled (<130/80) BP Controlled (<130/80) [facility] Start: 05-09-2025 Hepatitis B screening Urine Albumin:Creatinine Ratio [facility] Start: 05-09-2025 Hepatitis B surface antibody level LDL Cholesterol [facility] Start: 04-15-2025 Influenza vaccination [facility] Comment on above: Postponed from 06/17/2024 (Declined at t his time) Start: 04-12-2025 End: 04-12-2025 Patient encounter procedure 04/12/2025 11:40 AM EDT Office Visit [facility] [address] [place], [place] [phone] Americo Borrego MD [address] [place], [place] [phone] 3 mo f/u [facility] [place] Comment on above: 3 mo f/u Start: 04-10-2025 End: 07-10-2025 Comprehensive metabolic 2000 panel - Serum or Plasma COMPREHENSIVE METABOLIC PANEL Lab Routine Type 2 diabetes mellitus without complication, 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 (HCC) Hyperlipidemia, unspecified hyperlipidemia type Expected: 04/10/2025 (Approximate), Expires: 07/10/2025 [facility] Work Phone: Comment on above: Expected: 04/10/2025 (Approximate), Expi res: 07/10/2025 Start: 04-10-2025 End: 07-10-2025 Hemoglobin A1c in Blood HEMOGLOBIN A1C Lab Routine Type 2 diabetes mellitus without complication, 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 (HCC) Expected: 04/10/2025 (Approximate), Expires: 07/10/2025 [facility] Comment on above: Expected: 04/10/2025 (Approximate), Expi res: 07/10/2025 Start: 04-10-2025 End: 07-10-2025 Lipid 1996 panel - Serum or Plasma LIPID PANEL, FASTING Lab Routine Type 2 diabetes mellitus without complication, 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 (HCC) Hyperlipidemia, unspecified hyperlipidemia type Expected: 04/10/2025 (Approximate), Expires: 07/10/2025 [facility] Comment on above: Expected: 04/10/2025 (Approximate), Expi res: 07/10/2025 Start: 03-24-2025 Hemoglobin A1c measurement HbA1C [facility] Start: 02-19-2025 Annual PCP Team Chronic Disease Visit Annual PCP Team Chronic Disease Visit [facility] Start: 02-19-2025 BP Controlled (<130/80) BP Controlled (<130/80) [facility] Start: 02-19-2025 Covid-19 Vaccine () Covid-19 Vaccine () [facility] Comment on above: Postponed from 06/17/2023 (Declined at t his time) Start: 01-15-2025 Hepatitis B surface antibody level LDL Cholesterol [facility] Start: 11-29-2024 End: 11-29-2024 Patient encounter procedure 11/29/2024 11:00 AM EST Office Visit [facility] [address] [place] [address] Malika Sethi, MEDICAL BILLING SUPERVISOR.MATERIAL ENGINEER [address] [facility] [place] [address] 3 month follow up [facility] Comment on above: 3 month follow up Start: 11-24-2024 End: 02-23-2025 CBC W Auto Differential panel - Blood COMPLETE BLOOD COUNT AND DIFFERENTIAL Lab Routine Gastroesophageal reflux disease, 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 esophagitis present Hyperlipidemia, unspecified hyperlipidemia type Coronary artery disease involving [place] coronary artery of [place] heart without angina pectoris Expected: 11/24/2024 (Approximate), Expires: 02/23/2025 [facility] Comment on above: Expected: 11/24/2024 (Approximate), Expi res: 02/23/2025 Start: 11-24-2024 End: 02-23-2025 Comprehensive metabolic 2000 panel - Serum or Plasma COMPREHENSIVE METABOLIC PANEL Lab Routine Hyperlipidemia, unspecified hyperlipidemia type Type 2 diabetes mellitus with hyperglycemia, with long-term current use of insulin (HCC) Expected: 11/24/2024 (Approximate), Expires: 02/23/2025 [facility] Comment on above: Expected: 11/24/2024 (Approximate), Expi res: 02/23/2025 Start: 11-24-2024 End: 02-23-2025 Hemoglobin A1c in Blood HEMOGLOBIN A1C Lab Routine Type 2 diabetes mellitus with hyperglycemia, with long-term current use of insulin (HCC) Expected: 11/24/2024 (Approximate), Expires: 02/23/2025 [facility] Comment on above: Expected: 11/24/2024 (Approximate), Expi res: 02/23/2025 Start: 11-24-2024 End: 02-23-2025 Lipid 1996 panel - Serum or Plasma LIPID PANEL BASIC Lab Routine Hyperlipidemia, unspecified hyperlipidemia type Expected: 11/24/2024 (Approximate), Expires: 02/23/2025 [facility] Work Phone: Comment on above: Expected: 11/24/2024 (Approximate), Expi res: 02/23/2025 Start: 11-11-2024 Hemoglobin A1c measurement HbA1C [facility] Start: 10-17-2024 Medicare Advantage Annual Wellness Visit Medicare Advantage Annual Wellness Visit [facility] Start: 09-03-2024 End: 09-03-2024 Patient encounter procedure 09/03/2024 1:45 PM EST Office Visit [facility] [address] [place] [id number] Mia Pollack, OD [address] [place] [address] Type 2 diabetes mellitus without complication, 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 (HCC) [E11.9] Ophthalmology Comment on above: Type 2 diabetes mellitus without complic ation, 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 (HCC) [E11.9] Start: 08-24-2024 End: 08-24-2024 Patient encounter procedure [facility] Comment on above: 3 mo f/u A1c Start: 08-22-2024 End: 11-21-2024 CBC panel - Blood by Automated count COMPLETE BLOOD COUNT Lab Routine Essential hypertension Expected: 08/22/2024 (Approximate), Expires: 11/21/2024 [facility] Comment on above: Expected: 08/22/2024 (Approximate), Expi res: 11/21/2024 Start: 08-22-2024 End: 11-21-2024 Comprehensive metabolic 2000 panel - Serum or Plasma COMPREHENSIVE METABOLIC PANEL Lab Routine Type 2 diabetes mellitus without complication, 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 (HCC) Essential hypertension Expected: 08/22/2024 (Approximate), Expires: 11/21/2024 [facility] Comment on above: Expected: 08/22/2024 (Approximate), Expi res: 11/21/2024 Start: 08-22-2024 End: 11-21-2024 Hemoglobin A1c in Blood HEMOGLOBIN A1C Lab Routine Type 2 diabetes mellitus without complication, 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 (HCC) Expected: 08/22/2024 (Approximate), Expires: 11/21/2024 [facility] Work Phone: Comment on above: Expected: 08/22/2024 (Approximate), Expi res: 11/21/2024 Start: 08-14-2024 End: 08-14-2024 Patient encounter procedure 08/14/2024 10:00 AM EDT Office Visit [facility] [address] [place] [address] Mia Pollack, OD [address] [place] [address] Type 2 diabetes mellitus without complication, 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 long-term insulin use (HCC) [E11.9] Ophthalmology Comment on above: Type 2 diabetes mellitus without complic ation, 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 long-term insulin use (HCC) [E11.9] Start: 08-09-2024 Hemoglobin A1c measurement HbA1C [facility] Start: 06-29-2024 Annual PCP Team Chronic Disease Visit Annual PCP Team Chronic Disease Visit [facility] Start: 06-29-2024 BP Controlled (<130/80) BP Controlled (<130/80) [facility] Start: 06-29-2024 Hepatitis B Vaccine (1 of 3 - 19+ 3-dose series) Hepatitis B Vaccine (1 of 3 - 19+ 3-dose series) [facility] Comment on above: Postponed from 1987 (Declined at t his time) Start: 06-29-2024 Hepatitis B Vaccine (1 of 3 - 3-dose series) Hepatitis B Vaccine (1 of 3 - 3-dose series) [facility] Comment on above: Postponed from 1968 (Declined at t his time) Start: 06-29-2024 Shingrix Vaccine (1 of 2) Shingrix Vaccine (1 of 2) [facility] Comment on above: Postponed from 2018 (Declined at t his time) Start: 06-17-2024 Covid-19 Vaccine ( season) Covid-19 Vaccine ( season) [facility] Start: 06-17-2024 Covid-19 Vaccine ( season) Covid-19 Vaccine ( season) [facility] Start: 06-17-2024 Influenza vaccination [facility] Start: 05-22-2024 End: 08-21-2024 Comprehensive metabolic 2000 panel - Serum or Plasma COMPREHENSIVE METABOLIC PANEL Lab Routine Type 2 diabetes mellitus without complication, 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 (HCC) Essential hypertension Hyperlipidemia, unspecified hyperlipidemia type Expected: 05/22/2024 (Approximate), Expires: 08/21/2024 [facility] Work Phone: Comment on above: Expected: 05/22/2024 (Approximate), Expi res: 08/21/2024 Start: 05-22-2024 End: 08-21-2024 Hemoglobin A1c in Blood HEMOGLOBIN A1C Lab Routine Type 2 diabetes mellitus without complication, 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 (HCC) Expected: 05/22/2024 (Approximate), Expires: 08/21/2024 [facility] Comment on above: Expected: 05/22/2024 (Approximate), Expi res: 08/21/2024 Start: 05-22-2024 End: 08-21-2024 Lipid 1996 panel - Serum or Plasma LIPID PANEL BASIC Lab Routine Type 2 diabetes mellitus without complication, 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 (HCC) Essential hypertension Hyperlipidemia, unspecified hyperlipidemia type Expected: 05/22/2024 (Approximate), Expires: 08/21/2024 [facility] Comment on above: Expected: 05/22/2024 (Approximate), Expi res: 08/21/2024 Start: 05-22-2024 End: 08-21-2024 Microalbumin/Creatinin e [Mass Ratio] in Urine ALBUMIN/CREATININE RATIO, URINE Lab Routine Type 2 diabetes mellitus without complication, 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 long-term insulin use (HCC) Essential hypertension Expected: 05/22/2024 (Approximate), Expires: 08/21/2024 [facility] Comment on above: Expected: 05/22/2024 (Approximate), Expi res: 08/21/2024 Start: 05-22-2024 End: 05-22-2024 Patient encounter procedure Pulmonary Medicine Comment on above: Encounter for screening for lung cancer [Z12.2] 3 mo f/u Start: 05-22-2024 End: 05-22-2024 ambulatory [facility] Comment on above: Encounter for screening for lung cancer [Z12.2] Start: 04-16-2024 Hemoglobin A1c measurement HbA1C [facility] Start: 04-15-2024 Influenza vaccination Influenza Vaccine (#[facility]) [facility] Comment on above: Postponed from 06/17/2023 (Declined at t his time) Start: 03-30-2024 Hepatitis B surface antibody level LDL CHOLESTEROL [facility] Start: 03-29-2024 ANNUAL PCP TEAM CHRONIC DISEASE VISIT ANNUAL PCP TEAM CHRONIC DISEASE VISIT [facility] Start: 03-29-2024 COVID-19 VACCINE (#1) COVID-19 VACCINE (#1) [facility] Comment on above: Postponed from 1968 (Declined at t his time) Start: 02-22-2024 End: 02-22-2024 ambulatory 02/22/2024 9:45 AM EDT Procedure [facility]UL[facility] [address] [place] [address] Wstr, Pulm Lab [facility] [address] [place] [address] Chronic obstructive pulmonary disease, unspecified COPD type (HCC) [J44.9] [facility] Comment on above: Chronic obstructive pulmonary disease, u nspecified COPD type (HCC) [J44.9] Start: 01-29-2024 [facility] Start: 12-23-2023 Hemoglobin A1c measurement HbA1C [facility] Start: 09-28-2023 End: 11-28-2023 Comprehensive metabolic 2000 panel - Serum or Plasma COMP METABOLIC PANEL Lab Routine Type 2 diabetes mellitus without complication, 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 long-term insulin use (HCC) Expected: 09/28/2023, Expires: 11/28/2023 [facility] Work Phone: Comment on above: Expected: 09/28/2023, Expires: Start: 09-28-2023 End: 11-28-2023 Hemoglobin A1c in Blood HGB A1C Lab Routine Type 2 diabetes mellitus without complication, 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 long-term insulin use (HCC) Expected: 09/28/2023, Expires: 11/28/2023 [facility] Work Phone: Comment on above: Expected: 09/28/2023, Expires: Start: 09-22-2023 Hemoglobin A1c/Hemoglobin.total in Blood HBA1C [facility] Start: 06-30-2023 Hemoglobin A1c/Hemoglobin.total in Blood HBA1C [facility] Start: 06-17-2023 Covid-19 Vaccine ( season) Covid-19 Vaccine () [facility] Start: 06-17-2023 Influenza vaccination INFLUENZA (#1) [facility] Start: 01-07-2023 ANNUAL PCP TEAM CHRONIC DISEASE VISIT ANNUAL PCP TEAM CHRONIC DISEASE VISIT [facility] Start: 12-25-2022 End: 02-24-2023 CBC panel - Blood by Automated count CBC Lab Routine Essential hypertension Expected: 12/25/2022 (Approximate), Expires: 02/24/2023 [facility] Work Phone: Comment on above: Expected: 12/25/2022 (Approximate), Expi res: 02/24/2023 Start: 12-25-2022 End: 02-24-2023 Comprehensive metabolic 2000 panel - Serum or Plasma COMP METABOLIC PANEL Lab Routine Hyperlipidemia, unspecified hyperlipidemia type Controlled type 2 diabetes mellitus without complication, with long-term current use of insulin (HCC) Essential hypertension Expected: 12/25/2022 (Approximate), Expires: 02/24/2023 [facility] Work Phone: Comment on above: Expected: 12/25/2022 (Approximate), Expi res: 02/24/2023 Start: 12-25-2022 End: 02-24-2023 Hemoglobin A1c in Blood HGB A1C Lab Routine Controlled type 2 diabetes mellitus without complication, with long-term current use of insulin (HCC) Expected: 12/25/2022 (Approximate), Expires: 02/24/2023 [facility] Work Phone: Comment on above: Expected: 12/25/2022 (Approximate), Expi res: 02/24/2023 Start: 12-25-2022 End: 02-24-2023 Lipid 1996 panel - Serum or Plasma LIPID PANEL BASIC Lab Routine Hyperlipidemia, unspecified hyperlipidemia type Controlled type 2 diabetes mellitus without complication, with long-term current use of insulin (HCC) Essential hypertension Expected: 12/25/2022 (Approximate), Expires: 02/24/2023 [facility] Work Phone: Comment on above: Expected: 12/25/2022 (Approximate), Expi res: 02/24/2023 Start: 09-08-2022 Hepatitis B surface antibody level LDL CHOLESTEROL [facility] Start: 06-17-2022 Influenza vaccination INFLUENZA (#1) [facility] Start: 04-15-2022 Influenza vaccination INFLUENZA (#1) [facility] Comment on above: Postponed from 06/17/2021 (Declined at t his time) Start: 04-06-2022 Glaucoma screening Dilated Retinal Exam [facility] Start: 04-06-2022 Hepatitis C antibody, confirmatory test DILATED RETINAL EXAM [facility] Start: 12-09-2021 Hemoglobin A1c/Hemoglobin.total in Blood HBA1C [facility] Start: 11-13-2020 PNEUMOCOCCAL (2 - PCV) PNEUMOCOCCAL (2 - PCV) [facility] Start: 01-28-2021 Pneumococcal vaccination [facility] Start: 11-13-2020 Pneumococcal Vaccine: 50+ (2 of 2 - PCV) Pneumococcal Vaccine: 50+ (2 of 2 - PCV) [facility] Start: 07-29-2019 Hepatitis B screening URINE ALBUMIN:CREATININE RATIO [facility] Start: 2018 Influenza vaccination LUNG CANCER SCREENING [facility] Start: 2018 Screening for malignant neoplasm of lung Lung Cancer Screening [facility] Start: 2018 SHINGRIX VACCINE (1 of 2) SHINGRIX VACCINE (1 of 2) [facility] Start: 12-05-2015 3 comp foot exam completed DIABETIC FOOT EXAM [facility] Start: 12-05-2015 Diabetic foot examination Diabetic Foot Exam [facility] Start: 06-28-2014 FECAL OCCULT BLOOD FECAL OCCULT BLOOD [facility] Start: 06-28-2014 Screening for malignant neoplasm of colon Fecal Occult Blood [facility] Start: 2013 COLOGUARD (FIT-DNA) COLOGUARD (FIT-DNA) [facility] Start: [address] COLONOGRAPHY [facility] Start: 2013 Screening for malignant neoplasm of colon [facility] Start: 2013 SIGMOIDOSCOPY SIGMOIDOSCOPY [facility] Start: 1998 Zoledronic acid therapy ALPHA-1 ANTITRYPSIN DEFICIENCY SCREENING [facility] Start: 1987 Hepatitis B Vaccine (1 of 3 - 19+ 3-dose series) Hepatitis B Vaccine (1 of 3 - 19+ 3-dose series) [facility] Start: 1986 Anxiety Screening Anxiety Screening [facility] Start: 1986 BP CONTROLLED (<130/80) BP CONTROLLED (<130/80) [facility] Start: 1973 COVID-19 VACCINE (1) COVID-19 VACCINE (1) [facility] Start: 1968 COVID-19 VACCINE (#1) COVID-19 VACCINE (#1) [facility] Start: 1968 HEPATITIS B (1 of 3 - 3-dose series) HEPATITIS B (1 of 3 - 3-dose series) [facility] COVID & INFLUENZA A/ B & RSV NAAT, ROUTINE COVID & INFLUENZA A/B & RSV NAAT, ROUTINE Microbiology Routine Asthma with COPD with exacerbation (HCC) (HCC) Ordered: 11/26/2023 [facility] Work Phone: Comment on above: Ordered: 11/26/2023 Patient Education [facility] Work Phone: Patient referral [facility] Work Phone: End: 03-21-2025 SPIROMETRY - BASELINE AND POST DILATOR SPIROMETRY - BASELINE AND POST DILATOR PFT Routine Chronic obstructive pulmonary disease, unspecified COPD type (HCC) 1 Occurrences starting 02/20/2024 until 03/21/2025 [facility] Comment on above: 1 Occurrences starting 02/20/2024 until 03/21/2025 [facility] Immunizations Immunization Date Immunization Notes Care Provider Fa ciliamee 05-16-2021 tetanus toxoid, redu bianca diphtheria toxoid, and acellular pertussis vaccine, adsorbed Americo Borrego MD Work Phone: [facility] Work Phone: 11-13-2019 pneumococcal polysaccharide vaccine, 23 valent Americo Borrego MD Work Phone: [facility] 07-31-2018 influenza virus vacc ine, unspecified formulation Malika Sethi APRN.CNP Work Phone: [facility] 07-30-2011 influenza virus vacc ine, unspecified formulation Americo Borrego MD Work Phone: [facility] Work Phone: 11-23-2010 pneumococcal polysaccharide vaccine, 23 valent Americo Borrego MD Work Phone: [facility] 11-23-2010 pneumococcal vaccine , unspecified formulation [facility] 08-11-2010 influenza virus vacc ine, unspecified formulation Americo Borrego MD Work Phone: [facility] Work Phone: 07-12-2009 influenza virus vacc ine, unspecified formulation Americo Borrego MD Work Phone: [facility] Work Phone: 08-11-2008 influenza virus vacc ine, unspecified formulation Americo Borrego MD Work Phone: [facility] Work Phone: 08-11-2008 pneumococcal polysaccharide vaccine, 23 valent Americo Borrego MD Work Phone: [facility] Work Phone: 05-02-2006 tetanus and diphther ia toxoids, adsorbed, preservative free, for adult use (2 Lf of tetanus toxoid and 2 Lf of diphtheria toxoid) Americo Borrego MD Work Phone: [facility] 10-17-2005 tetanus toxoid, adsorbed Dahlia Borrego MD Work Phone: [facility] Work Phone: Payers Date Payer Category Payer Self-pay [id number] 2025 Unknown [id number] 2025 Private Health [facility] [id number] 2023 Medicare (Managed Care) [id number] 2023 Unknown [id number] 2022 Medicare [id number] 2022 Medicaid [id number] 2019 Medicaid [employer] [facility] MEDICAID [id number] 2019-Present [phone] [address] [place] [address] Medicaid [id number] 2019 Medicaid [id number] 2016 Unknown [id number] Medicare [id number] Unknown [facility] [id number] Unknown [id number] Unknown [id number] Social History Date Type Detail Facility Start: 05-07-2015 End: 07-06-2025 Tobacco smoking status NHIS Ex-smoker [facility] Start: 1983 End: 04-02-2015 History of tobacco use Current smoker [facility] Start: 1983 End: 04-02-2015 History of tobacco use Cigarette Smoker [facility] Start: 05-07-2015 End: 03-29-2023 Cigarettes smoked current (pack per day) - Reported 1.5 [facility] Start: 05-07-2015 End: 08-24-2024 Tobacco use and exposure User of smokeless tobacco [facility] History of tobacco use Chews Tobacco [facility] Start: 09-09-2021 End: 04-12-2025 Alcohol intake Current non-drinker of alcohol (finding) [facility] Start: 01-07-2022 History SDOH Housing Unable to Pay 3 [facility] Start: 12-08-2015 End: 03-29-2023 Tobacco Comment Both parents smoked in childhood. Lived with smokers as adult. No one in current home currently smokes. [facility] Start: 1968 Sex Assigned At Male C [facility] Start: 12-28-2021 End: 01-07-2022 Exposure to SARS-CoV-2 (event) Not sure [facility] Start: 12-06-2022 End: 01-29-2024 Tobacco smoking status NHIS Unknown if ever smoked [facility] Start: 08-06-2019 Rare [facility] Start: 08-06-2019 None [facility] Start: 08-06-2019 Spouse/ Signif icant Other [facility] Start: 08-06-2019 Non-smoker [facility] Start: 01-07-2022 End: 03-29-2023 Tobacco use panel [facility] Start: 09-17-2012 National Score (1-10 0), lower number is lower risk 47 [facility] Start: 04-30-2020 Gender identity Identifies as male gender (finding) [facility] Start: 04-30-2020 Sexual orientation Heterosexual (fin ding) [facility] Are you now , , , , never or living with a partner? Refused [facility] (I/We) worried venkatesh er (my/our) food would run out before (I/we) got money to buy more. DK or Refused [facility] Medical Equipment Procedure Code Equipment Code Equipment Original Text Equipment Identifier Dates [id number], [id number], [id number], [id number] Start: 06-12-2021 End: 04-12-2025 Comment on above: [...] 11/13/2019 1:30 PM Shun Ceron RN No [facility] 11-13-2019 Are you blind, or do you have serious difficulty seeing, even when wearing glasses No 11/13/2019 1:30 PM Shun Ceron RN No [facility] 11-13-2019 Do you have serious difficulty walking or climbing stairs No 11/13/2019 1:30 PM Shun Ceron RN No [facility] 11-13-2019 Do you have difficul ty dressing or bathing No 11/13/2019 1:30 PM Shun Ceron RN No [facility] 11-13-2019 Because of a physica l, mental, or emotional condition, do you have difficulty doing errands alone such as visiting a physician's office or shopping No 11/13/2019 1:30 PM Shun Ceron RN No [facility] Mental Status Date Assessment Result Facility 11-13-2019 Because of a physica l, mental, or emotional condition, do you have serious difficulty concentrating, remembering, or making decisions No 11/13/2019 1:30 PM Shun Ceron RN No [facility] Clinical Notes 11-12-2019 to 07-06-2025 Note Date & Type Note Facility 07-06-2025 Discharge summary [facility] 07-06-2025 Radiology Diagnostic study note [facility] Imaging Services [address] [place] [id number] Chest PA and Lateral MR#: [id number] Acct: [id number] Name: ELIEL SOUZA Rep #: [id number] : 1970 M 55 From: Ronni Archuleta MD PCP: Dr. Americo Borrego MD Status: RE G ER Study:Chest PA and Lateral Date of Exam: 07/06/25 Exam# [id number] Ordering Dr: Deena Holly DO PROCEDURE: CHEST [...] - Other findings discussed above. Reading Location: [id number] CC: Dr. Melissa Holly DO; Dr. Americo Borrego MD ~ Door Machine Operator: Signed [facility] 07-06-2025 Discharge summary Note Date/Time July 06, 2025 6:11pm [facility] Medical Records Department [address] [place] [address] Emergency Department Summary 07/06/25 MR#: [id number] Acct: [id number] Name: ELIEL SOUZA Rep #:[id number] : 1970 55 From: Melissa Ba PCP: [...] complaints or concerns per at this time. [facility] Medical History Diverticulitis Femur fracture Rib fracture H. pylori infection Cholecystitis Fatty liver Depression BPH (benign prostatic hyperplasia) DVT (deep venous thrombosis) GERD (gastroesophageal reflux disease) Diverticula of colon HTN (hypertension) COPD (chronic obstructive pulmonary disease) Diabetes mellitus Home Medications ?Medication ?Instructions ?Recorded ?Last Taken ?Type albuterol sulfate 2.5 mg/3 mL 2.5 mg inhalation Q6H MT N PRN Sob 01/03/16 11/18/16 04:00 History [...] - Other findings discussed above. Reading Location: [id number] Rhythm Strip Rhythm Strip: Sinus Rhythm Rate: [...] Referrals: Americo Borrego MD [Primary Care Provider, [facility]] Activity Restrictions/Additional Instructions: Use your nebulizer [...] is causing a COPD exacerbation Print Language: [place] Disposition Disposition: Home, Self Care What to do if you have Problems For any increased pain, shortness of breath, bleeding, nausea or vomiting, chestpain, or any unexpected problems, contact your Primary Care Provider. Call [facility] ([phone]) or report to the closest Emergency Room. Call 911 if necessary. 07/06/25 1811 <Electronically signed by Melissa Holly DO> Cosigner Signature (if applicable): CC: Dr. Americo Borrego MD ~ Signed [facility] Work Phone: [phone] 401-836608-29-2025 Telephone encounter Note* Telephone Encounter - Americo Borrego MD - 06/14/2025 8:35 AM EDT OK to refill as ordered Americo Borrego MD [facility]08-29-2025 Miscellaneous Notes* Telephone Encounter - [...] 13, 2025 12:01 PM documented in this encounterJoint [facility]08-[facility]-2025 Telephone encounter Note * Telephone [...] Franca Sheets June 13, 2025 12:01 PM [facility]2025 History of Present illness Narrative* [...] tx as needed. Not following with any shirring tender's. Does get Shortness of Breath if he [...] HISTORY Diagnosis Date CAD (coronary artery disease), [place] coronary artery 2014 No PCI indicated. no machine cage maker needed Closed fracture of femur ([facility]) 11/2010 Depressive disorder, not elsewhere classified Diabetes mellitus type 2 in obese DVT of lower extremity (deep venous thrombosis) ([facility]) 11/2010 left Esophageal reflux Essential hypertension CATY (obstructive sleep apnea) CPAP needs another sleep study machine set too high Pelvic fracture ([facility]) Seasonal allergic rhinitis Unspecified asthma(493.90) Diagnosed [...] Follow up in 3 months Recording using LogicLadder software for draft documentation of the visit was discussed with the patient/authorized commercial representative; all questions welcomed and answered. Patient/authorized commercial representative agreed to proceed I agree with the Chief Complaint, ROS, and Past Histories independently gathered by the clinical director of academic support and the remaining scribed note accurately describes [...] AM. Zulma Gloria MA documented in this encounterJoint [facility]2025 NoteHNO ID: [id number] Author: AMERICO BORREGO MD Service: ? Author [...] tx as needed. Not following with any shirring tender's. Does get Shortness of Breath if he [...] HISTORY Diagnosis Date CAD (coronary artery disease), [place] coronary artery 2014 No PCI indicated. no machine cage maker needed Closed fracture of femur ([facility]) 11/2010 Depressive disorder, not elsewhere classified Diabetes mellitus type 2 in obese DVT of lower extremity (deep venous thrombosis) ([facility]) 11/2010 left Esophageal reflux Essential hypertension CATY (obstructive sleep apnea) CPAP needs another sleep study machine set too high Pelvic fracture ([facility]) Seasonal allergic rhinitis Unspecified asthma(493.90) Diagnosed [...] strip Test blood sugar(s) (more content not included)...[facility]03-25-2025 History of Present illness Narrative* Americo Borrego [...] HISTORY Diagnosis Date CAD (coronary artery disease), [place] coronary artery 2014 No PCI indicated. no machine cage maker needed Closed fracture of femur ([facility]) 11/2010 Depressive disorder, not elsewhere classified Diabetes mellitus type 2 in obese DVT of lower extremity (deep venous thrombosis) ([facility]) 11/2010 left Esophageal reflux Essential hypertension [...] 12/22/2024 2.93 Monocytes % 12/22/2024 6.1 Abs Tensas 12/22/2024 0.46 Eosinophils % 12/22/2024 5.3 Abs Eosin 12/22/2024 0.40 Basophils % 12/22/2024 0.9 Abs Baso 12/22/2024 0.07 Immature Granulocytes % 12/22/2024 0.7 Abs Immature Gran 12/22/2024 0.05 NRBC 12/22/2024 0.0 Absolute nRBC 12/22/2024 <0.01 Diff Type 12/22/2024 Auto LDL Cholesterol, Direct 12/22/2024 65 VLDL Cholesterol 12/22/2024 62 (H) ASSESSMENT/PLAN: 1. Type 2 diabetes mellitus without complication, 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 long-term insulin use (HCC) -ICD9: 250.00, ICD10: E11.9 [...] Moderate Americo Borrego MD documented in this encounterJoint [facility]03-[facility]-2025 NoteHNO ID: [id number] Author: AMERICO BORREGO MD Service: ? Author [...] HISTORY Diagnosis Date CAD (coronary artery disease), [place] coronary artery 2014 No PCI indicated. no machine cage maker needed Closed fracture of femur ([facility]) 11/2010 Depressive disorder, not elsewhere classified Diabetes mellitus type 2 in obese DVT of lower extremity (deep venous thrombosis) ([facility]) 11/2010 left Esophageal reflux Essential hypertension CATY (obstructive sleep apnea) CPAP needs another sleep study machine set too high Pelvic fracture ([facility]) Seasonal allergic rhinitis Unspecified asthma(493.90) Diagnosed in 20s. Previous Surgical History PAST SURGICAL HISTORY Procedure Laterality Date COLONOSCOPY FLX DX W/COLLJ SPEC WHEN PFRMD 11/04/10 Normal colon COLONOSCOPY FLX DX W/COLLJ SPEC WHEN PFRMD 01/21/16 few diverticula EGD TRANSORAL BIOPSY SINGLE/MULTIPLE 11/04/10 duodenitis EGD TRANSORAL BIOPSY SINGLE/MULTIPLE 01/21/16 minimal gastritis [facility]C [facility]OR [facility] 2013 Cardiac cath, L [...] as needed for (more content not included)... [facility]02-24-2025 Telephone encounter Note* Telephone Encounter - Dean Goldberg APRN.CNP - 12/10/2024 1:37 PM EST Does he need albuterol nebulizer solution or inhaler? What was the name of the third medication that he was requesting? Dean Goldberg APRN.CNP [facility]02-24-2025 Miscellaneous Notes* Telephone Encounter - [...] that in his records. documented in this encounterJoint [facility] Hospital02-24-2025 Telephone encounter Note * Telephone Encounter - Brendon Villareal - 12/10/2024 1:34 PM EST Patient called asking for medication refills. Mentioned Albuterol and Lisinopril. Also mentioned one other but I could not find that in his records. [facility]12-13-2024 Telephone encounter Note* Telephone Encounter [...] 1/2 hr before meal. Dean Goldberg APRN.CNP [facility]12-13-2024 Miscellaneous Notes* Telephone Encounter - [...] 28, 2024 11:43 AM documented in this encounterJoint [facility] District [facility] Hospital12-13-2024 Telephone encounter Note * Telephone [...] Ashley Sheets September 28, 2024 11:43 AM [facility]11-27-2024 NoteHNO ID: [id number] Author: GEM PEREZ RN Service: ? Author [...] was due for refill on 07/27/24 at [facility] [place] [facility] LISINOPRIL TAB 20MG is due for refill on 09/26/24 at [facility] [place] [facility] Lisinopril refilled 09/28. Call placed to patient on 09/1824 regarding Atorvastatin. Has not been refilled. NALM. Patient Attributed To: QAE Payer: [facility] Action Taken: Data submitted to Socialthing message to patient Contact made with patient: No, Chart review only. Signature: Gem Perez RNChildren[facility] History of Present illness Narrative* Gem Perez RN - 09/12/2024 9:29 AM EST ACM SILVANO RN Reason for review or outreach: Medication Adherence review per request of payer Medication Adherence Review Details: Cholesterol and Hypertension FYI / ACTION REQUEST: Patient identified by name and date of Summary/Findings of review: ATORVASTATIN TAB 40MG was due for refill on 07/27/24 at [facility] [place] [facility] LISINOPRIL TAB 20MG is due for refill on 09/26/24 at [facility] [place] [facility] Patient Attributed To: QAE Payer: [facility] Action Taken: Data submitted to Socialthing message to patient Contact made with patient: No, Chart review only. Signature: Gem Perez RN documented in this encounterJoint Township District [facility] Hospital11-27-2024 NotePatient Outreach (NETNAV) ELIEL SOUZA ([id number]) 1970 M Date Time Provider Department 09/12/24 [...] was due for refill on 07/27/24 at [facility] [place] [facility] LISINOPRIL TAB 20MG is due for refill on 09/26/24 at [facility] [place] [facility] Lisinopril refilled 09/28. Call placed to patient on 09/1824 regarding Atorvastatin. Has not been refilled. NALM. Patient Attributed To: HANNAH Payer: [facility] Action Taken: Data submitted to Vibe[employer] Connect message to patient Contact made with patient: No, Chart review only. Signature: Gem Perez RN Allergies As of Date: 09/12/2024 (No Known Allergies) Date Reviewed: 08/24/2024 Reviewed by: Zulma Gloria MA - Fully Assessed Reason for Visit: ACM SILVANO RN [[id number]] Cmt: Medication Adherence Review at request of [...] with hyperglycemia, wi* Coronary artery disease involving [place]*07/05/2014 Obstructive sleep apnea treated with BiPAP [G47*07/05/2014 COPD with exacerbation (HCC) [J44.1] 02/25/2015 Essential hypertension [I10] 08/07/2015 LLQ abdominal pain [R10.32] (more content not included)...[facility]11-11-2024 Telephone encounter Note* Telephone Encounter - Americo Borrego MD - 08/27/2024 6:11 PM EST Jaylin ordered Americo Borrego MD [facility]11-11-2024 Miscellaneous Notes* Telephone Encounter - Americo Borrego MD - 08/27/2024 6:11 PM EST Jaylin ordered Americo Borrego MD * Telephone Encounter - Mary Jane Wade RN - 08/27/2024 1:25 PM EST Phong, pharmacist @ [facility] calling to let provider know that Levemir has been discontinued. He is asking for new script for alternative. He mentioned Tresiba, Lantus. Please review and advise. Mary Jane Wade RN documented in this encounterJoint Township District Memorial Hospital11-11-2024 Telephone encounter Note * Telephone Encounter - Mary Jane Wade RN - 08/27/2024 1:25 PM EST Phong, pharmacist @ [facility] calling to let provider know that Levemir has been discontinued. He is asking for new script for alternative. He mentioned Tresiba, Lantus. Please review and advise. Mary Jane Wade RN [facility]11-08-2024 History of Present illness Narrative* [...] does get some anxiety when driving to [place] on the highways. His chest gets a [...] HISTORY Diagnosis Date CAD (coronary artery disease), [place] coronary artery 2014 No PCI indicated. no machine cage maker needed Closed fracture of femur ([facility]) 11/2010 Depressive disorder, not elsewhere classified Diabetes mellitus type 2 in obese DVT of lower extremity (deep venous thrombosis) ([facility]) 11/2010 left Esophageal reflux Essential hypertension CATY (obstructive sleep apnea) CPAP needs another sleep study machine set too high Pelvic fracture ([facility]) Seasonal allergic rhinitis Unspecified asthma(493.90) Diagnosed [...] with Pulm 7. Coronary artery disease involving [place] coronary artery of [place] heart without angina pectoris- ICD9: 414.01, ICD10: [...] Past Histories independently gathered by the clinical director of academic support and the remaining scribed note accurately describes [...] AM. Zulma Gloria MA documented in this encounterJoint Township District Memorial Hospital11-08-2024 NoteHNO ID: [id number] Author: AMERICO BORREGO MD Service: ? Author [...] does get some anxiety when driving to [place] on the highways. His chest gets a [...] HISTORY Diagnosis Date CAD (coronary artery disease), [place] coronary artery 2014 No PCI indicated. no machine cage maker needed Closed fracture of femur ([facility]) 11/2010 Depressive disorder, not elsewhere classified Diabetes mellitus type 2 in obese DVT of lower extremity (deep venous thrombosis) ([facility]) 11/2010 left Esophageal reflux Essential hypertension CATY (obstructive sleep apnea) CPAP needs another sleep study machine set too high Pelvic fracture ([facility]) Seasonal allergic rhinitis Unspecified asthma(493.90) Diagnosed in 20s. Previous Surgical History PAST SURGICAL HISTORY Procedure Laterality Date COLONOSCOPY FLX DX W/COLLJ SPEC WHEN PFRMD 11/04/10 Normal colon COLONOSCOPY FLX DX W/COLLJ SPEC WHEN PFRMD 01/21/16 few diverticula EGD TRANSORAL BIOPSY SINGLE/MULTIPLE 11/04/10 duodenitis EGD TRANSORAL BIOPSY SINGLE/MULTIPLE 01/21/16 minimal gastritis [facility]C [facility]CUTANE[facility] 2013 Cardiac cath, L [...] times daily. Dx: Typ (more content not included)...[facility] 08-22-2024 NoteHNO ID: [id number] Author: MALU TIRADO MA Service: ? Author Type: Lift Operator Type: Progress Notes Filed: 08/22/2024 13:07 Note Text: POPULATION HEALTH NAVIGATION OUTREACH Action/FYI INVALID NUMBER [employer] MESSAGE SENT ANNUAL MEDICARE WELLNESS CHRIS FLU Reason for Outreach Care Gap/HCC or Scheduling Wellness Visits Care Gaps due: Medicare Annual Wellness Visit Diabetic Eye Exam Flu Vaccine Patient Contacted: Unable or unnecessary to reach patient: Unable to leave message Connect message sent Navigation Signature: Malu Tirado MA August 22, 2024 7:[address] [facility]11-06-2024 History of Present illness Narrative* Malu Tirado MA - 08/22/2024 7:57 AM EST POPULATION HEALTH NAVIGATION OUTREACH Action/FYI INVALID NUMBER [employer] MESSAGE SENT ANNUAL MEDICARE WELLNESS CHRIS FLU Reason for Outreach Care Gap/HCC or Scheduling Wellness Visits Care Gaps due: Medicare Annual Wellness Visit Diabetic Eye Exam Flu Vaccine Patient Contacted: Unable or unnecessary to reach patient: Unable to leave message Connect message sent Navigation Signature: Malu Tirado MA August 22, 2024 7:57 AM documented in this encounterJoint Township District [facility] Hospital11-06-2024 NotePatient Outreach (NETNAV) ELIEL SOUZA ([id number]) 1970 M Date Time Provider Department 08/22/24 MALU TIRADO NETKATHARINE During your visit today, we recorded the following information about you: Malu Tirado MA 08/22/2024 1:07 PM Signed POPULATION HEALTH NAVIGATION OUTREACH Action/I INVALID NUMBER [employer] MESSAGE SENT ANNUAL MEDICARE WELLNESS CHRIS FLU Reason for Outreach Care Gap/HCC or Scheduling Wellness Visits Care Gaps due: Medicare Annual Wellness Visit Diabetic Eye Exam Flu Vaccine Patient Contacted: Unable or unnecessary to reach patient: Unable to leave message Connect message sent Navigation Signature: Malu Tirado MA August 22, 2024 7:57 AM Allergies As of Date: 08/22/2024 (No Known Allergies) Date Reviewed: 05/22/2024 Reviewed by: Lluvia Bright MA - Fully Assessed Reason for Visit: Population Health Navigation Outreach [3910] Cmt: [facility] M[facility] PCSA Prescriptions as of [...] with hyperglycemia, wi* Coronary artery disease involving kivalina ragland*07/05/2014 Obstructive sleep apnea treated with BiPAP [...] 05/03/2020 Hydrocele [N43.3] 09/03/2020 (more content not included)...[facility]08-21-2024 Telephone encounter Note* Telephone Encounter - Malika Sethi APRN.MATERIAL ENGINEER - 06/06/2024 3:02 PM EDT The following approved medication requests have been transmitted electronically. Requested Prescriptions Pending Prescriptions Disp Refills insulin detemir U-100 (LEVEMIR FLEXTOUCH U-100 INSULIN) 100 unit/mL (3 mL) injection pen 10 Each 5 Sig: Inject 40 Units subcutaneously two times a day. Malika Sethi APRN.GISSELL [facility]08-21-2024 Miscellaneous Notes* Telephone Encounter - [...] boxes.Pended. Last ov: 05-22-24 documented in this encounterJoint [facility]08-[facility]-2024 Telephone encounter Note * Telephone Encounter - Lizzette Garcia RN - 06/06/2024 11:07 AM EDT MANOJ Martinez, maria g pcp sent Rx for Levemir to dispense 8 each. States each box has 5 pens and they cannot split up the box. Asking if pcp can send Rx to read 10 pens and they will dispense 2 boxes.Pended. Last ov: 05-22-24 [facility]08-06-2024 Instructions* Patient Instructions* Americo Borrego MD - 05/22/2024 10:00 AM EDT Decrease Levemir insulin to 40 units twice daily Decrease Humalog to 20 units with dinner documented in this encounterJoint Township District Memorial Hospital08-06-2024 History of Present illness Narrative* Americo Borrego MD - 05/22/2024 9:40 AM EDT Chief Complaint Patient presents with: F/U 3 Month HPI Eliel Souza is a 53 year old male who presents here today for 3 month follow up. Has handicap placard due to COPD/Asthma causing SOB. No bowel, gi, or urinary issues. Hx of Ileostomy. Was seen at [facility] ED on 05/14/24 for abdominal pain.Has hx [...] left worse. Taking Jardiance 10 mg daily, Xffxphu14 units BID, and Humalog 30 units PM. [...] as needed. Is not following with any Manuscript Editor, was referred to one last visit and [...] MEDICAL HISTORY 2014: CAD (coronary artery disease), [place] coronary artery Comment: No PCI indicated. no machine cage maker needed 11/2010: Closed fracture of femur (HCC) [...] 2 diabetes mellitus without complication, 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 long-term insulin use (HCC) -ICD9: 250.00, ICD10: E11.9 [...] Moderate Americo Borrego MD documented in this encounterJoint Township District Memorial Hospital08-06-2024 NoteHNO ID: [id number] Author: AMERICO BORREGO MD Service: ? Author Type: Physician Type: Progress Notes Filed: 05/22/2024 11:48 Note Text: Chief Complaint Patient presents with: F/U 3 Month HPI Eliel Souza is a 53 year old male who presents here today for 3 month follow up. Has handicap placard due to COPD/Asthma causing SOB. No bowel, gi, or urinary issues. Hx of Ileostomy. Was seen at [facility] ED on 05/14/24 for abdominal pain. Has [...] as needed. Is not following with any Manuscript Editor, was referred to one last visit and [...] MEDICAL HISTORY 2014: CAD (coronary artery disease), [place] coronary artery Comment: No PCI indicated. no machine cage maker needed 11/2010: Closed fracture of femur (HCC) [...] Puffs as instructed every (more content not included)...[facility]07-29-2024 NoteHNO ID: [id number] Author: MATILDE GAN APRN.MATERIAL ENGINEER Service: ? Author Type: Nurse Practitioner Type: Progress Notes Filed: 05/14/2024 14:30 Note Text: This note was created using PsyQicriter. Subjective Eliel Souza is a 53 year [...] going to an emergency room. Matilde Gan APRN.[facility]07-29-2024 History of Present illness Narrative* Matilde Gan APRN.[facility] - 05/14/2024 2:22 PM EDT This [...] going to an emergency room. Matilde Gan APRN.MATERIAL ENGINEER documented in this encounterJoint Township District Memorial Hospital06-07-2024 Telephone encounter Note * Telephone Encounter - Americo Borrego MD - 03/23/2024 3:06 PM EDT OK to refill as ordered Americo Borrego MD [facility]06-07-2024 Miscellaneous Notes* Telephone Encounter - [...] Thank you. Gaviota Higgins. documented in this encounterJoint Township District Memorial Hospital06-07-2024 Telephone encounter Note * Telephone [...] 05/22/2024 Please advise. Thank you. Gaviota Higgins. [facility]05-15-2024 Telephone encounter Note* Telephone Encounter - Margarita Valles RP - 02/29/2024 1:43 PM EDT Patient recently referred to PharmD team by PCP. PSS unable to reach after several attempts. Calledpatient again and unable to reach. Forwarding to PCP as FYI that unable to schedule patient for initial PharmD visit. Margarita Valles PharmD, [facility] Clinical Pharmacist [facility] Work Phone: 1(126) 672-393605-15-2024 Miscellaneous Notes* Telephone Encounter - Margarita Valles RPh - 02/29/2024 1:43 PM EDT Patient recently referred to PharmD team by PCP. PSS unable to reach after several attempts. Calledpatient again and unable to reach. Forwarding to PCP as FYI that unable to schedule patient for initial PharmD visit. Margarita Valles PharmD, [facility] Primary Care Clinical Pharmacist documented in this encounterJoint Township District Memorial Hospital05-08-2024 Telephone encounter Note * Telephone Encounter - Kandace Alicea PSS - 02/22/2024 9:04 AM EDT Telephoned the patient to schedule a new Primary Care pharmacy appt. Left a message. Made two attempts to contact the patient. Patient has not returned the call. If the patient returns a call, an appt will be scheduled. Encounter routed to the clinical pharmacist. [facility]05-08-2024 Miscellaneous Notes* Telephone Encounter - [...] appt. Left a message. documented in this encounterJoint Township District Memorial Hospital05-07-2024 Telephone encounter Note * Telephone Encounter - Kandace Alicea PSS - 02/21/2024 2:10 PM EDT Telephoned the patient to schedule a new Primary Care pharmacy appt. Left a message. [facility]05-06-2024 History of Present illness Narrative* Americo Borrego MD - 02/20/2024 12:40 PM EDT Chief Complaint Patient presents with: F/U 6 Month HPI Eliel Souza is a 53 year old male who presents here today for a 6 month follow up. Pt here today for his routine follow up and lab review. Pt seen at [facility] ED on 01/29/24 for a cough. GI/Uro [...] HISTORY Diagnosis Date CAD (coronary artery disease), [place] coronary artery 2014 No PCI indicated. no machine cage maker needed Closed fracture of femur (HCC) 11/2010 Depressive disorder, not elsewhere classified Diabetes mellitus type 2 in obese (HCC) ([facility]) DVT of lower extremity (deep venous thrombosis) ([facility]) 11/2010 left Esophageal reflux Essential hypertension CATY (obstructive sleep apnea) CPAP needs another sleep study machine set too high Pelvic fracture ([facility]) Seasonal allergic rhinitis Unspecified asthma(493.90) Diagnosed [...] 2 diabetes mellitus without complication, 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 long-term insulin use (HCC) -ICD9: 250.00, ICD10: E11.9 [...] Past Histories independently gathered by the clinical director of academic support and the remaining scribed note accurately describes [...] PM. Lluvia Bright MA documented in this encounterJoint Township District Memorial Hospital04-14-2024 Discharge summary Author Bruce Dong [facility] January 29, 2024 2:44am Note Date/Time January 29, 2024 12: 55am [facility] [facility] Medical Records Department [address] [place] [address] Emergency Department Summary 01/29/24 MR#: [id number] Acct: [id number] Name: ELIEL SOUZA Rep #:[id number] : 1970 53 From: Bruce Dong DO [...] pulse ox was 95% on room air [facility] Medical History BPH (benign prostatic hyperplasia) Cholecystitis [...] (Auto) 46.1 L Lymph % (Auto) 39.1 Tensas % (Auto) 7.4 Eos % (Auto) 4.7 [...] 2:17 EDT Reading Location ID and State: [facility] / [place] Tel , Service support , 2 view [...] problems, contact your Primary Care Provider. Call [facility] ([phone]) or report to the closest Emergency Room. Call 911 if necessary. 01/29/24 0244 <Electronically signed by Bruce Dong DO> Cosigner Signature (if applicable): CC: Dr. Americo Borrego MD ~ Signed [facility] Work Phone: 1(659) 945-412904-10-2024 Miscellaneous Notes* Telephone Encounter - Dean Goldberg APRN.GSISELL - 01/25/2024 2:43 PM EDT The following approved medication requests have been transmitted electronically. Requested Prescriptions Pending Prescriptions Disp Refills albuterol HFA (PROVENTIL HFA, VENTOLIN HFA) 90 mcg/actuation inhaler 1 Each 0 Sig: Inhale 2 Puffs as instructed every 4 hours as needed for wheezing/shortness of breath. Dean Goldberg APRN.MATERIAL ENGINEER * Telephone Encounter - Rhona Cardoza LPN [...] Thank you. Victoria Lancaster. documented in this encounterJoint Township District Memorial Hospital02-14-2024 Miscellaneous Notes* Telephone Encounter - [...] Thank you. Annalise Sheets. documented in this encounterJoint Township District Memorial Hospital02-12-2024 Miscellaneous Notes* Telephone Encounter - [...] name and date of : Yes, [facility] Patient phones for refill(s): Requested Prescriptions [...] Thank you. Malika Patterson. documented in this encounterJoint Township District Memorial Hospital02-10-2024 History of Present illness Narrative* [...] onsetfever. Emil Luo MD documented in this encounterJoint Township District Memorial Hospital02-06-2024 Miscellaneous Notes* Telephone Encounter - Lluvia Bright Ma - 11/22/2023 8:17 AM EST Call to pt and notified him that letter has been written and is available for picker today at Medical Records after 12:00 pm. Letter forwarded to Medical Records. Lluvia Bright Ma * Telephone Encounter - Americo Borrego MD - 11/21/2023 7:33 PM EST Letter done Americo Borrego MD * Telephone Encounter - Franca Goode RN - 11/21/2023 2:25 PM EST Pt reports he received a letter for upcoming jury duty at the [facility] [address]. Asking if PCP would write a letter excusing him from jury duty due to his GI history and use of bathroom frequently. Patient would like called once letter is ready for picker, if provider agreeable to completing letter. Franca Goode, RN documented in this encounterJoint Township District Memorial Hospital12-06-2023 History of Present illness Narrative* [...] 21, 2023 4:06 PM documented in this encounterJoint Township District Memorial Hospital12-06-2023 History of Present illness Narrative* Chen Souza APRN.MATERIAL ENGINEER - 09/21/2023 3:53 PM EST This note was created using PsyQicriter. Subjective Eliel Souza is a 53 year [...] - AZITHROMYCIN 250 MG TABLET Chen Souza APRN.MATERIAL ENGINEER documented in this encounterJoint Township District Memorial Hospital11-08-2023 Miscellaneous Notes* Telephone Encounter - [...] notify patient. Mandi Sheets documented in this encounterJoint Township District Memorial Hospital11-08-2023 Miscellaneous Notes* Telephone Encounter - Mary Jane [...] calling: self Call patient at: at home [phone] (home) Was an appointment scheduled: No Patient said he has COPD. Said he has a chest cold and Dr. Borrego usually prescribes prednisonewhen he gets a chest cold. Would like direction. Closing statement: Symptom Call: Thank you for calling [facility], your call is very important. A nurse will call in approximately 2-4 hours during business hours. If this is an emergency, please contact 911. Mandi Sheets documented in this encounterJoint Township District Memorial Hospital09-13-2023 Instructions* Patient Instructions* Malika Sethi APRN.MATERIAL ENGINEER - 06/29/2023 2:06 PM EDT Start Jardiance [...] sugar level consistently (80-130) documented in this encounterJoint Township District Memorial Hospital09-13-2023 History of Present illness Narrative* [...] HISTORY Diagnosis Date CAD (coronary artery disease), [place] coronary artery 2014 No PCI indicated. no machine cage maker needed Closed fracture of femur ([facility]) 11/2010 Depressive disorder, not elsewhere classified Diabetes mellitus type 2 in obese ([facility]) DVT of lower extremity (deep venous thrombosis) ([facility]) 11/2010 left Esophageal reflux Essential hypertension CATY (obstructive sleep apnea) CPAP needs another sleep study machine set too high Pelvic fracture ([facility]) Seasonal allergic rhinitis Unspecified asthma(493.90) Diagnosed [...] 2 diabetes mellitus without complication, 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 long-term insulin use (HCC) -ICD9: 250.00, ICD10: E11.9 [...] APRN.CNP This note was partially generated using Flypost[employer] voice recognition system. Note was reviewed for accuracy. There may be minor misspellings or grammar miscues with [employer] voice recognition. documented in this encounterJoint Township District Memorial Hospital09-08-2023 Miscellaneous Notes* Telephone Encounter - [...] notify patient. Deyanira Bazzi documented in this encounterJoint Township District Memorial Hospital08-31-2023 Miscellaneous Notes* Telephone Encounter - [...] or jardiance please send to pharmacy/ [facility] [place] for next RX pick-up. Please notify patient of provider response, phone number [phone] Patient has been identified by name and birthdate. Person calling: self Call patient at: on cell [phone] (home) [phone] (cell) Was an appointment scheduled: No Closing statement: Results or non-symptom based questions: Thank you for calling [facility], your call will be returned within the next business day. Victoria Lancaster documented in this encounterJoint Township District Memorial Hospital07-10-2023 Miscellaneous Notes* Telephone Encounter - [...] notify patient. Deyaniracristóbal Bazzi documented in this encounterJoint Township District Memorial Hospital03-17-2023 Miscellaneous Notes* Telephone Encounter - [...] advise. Manjula Sterlingkirstin Sheets documented in this encounterJoint Township District Memorial Hospital02-20-[address] Whiteside [facility] December 06, 2022 2:25pm Note Date/Time December 06, 2022 12:02pm [facility] Medical Records Department [address] [place] [address] Emergency Department Summary 12/06/22 MR#: [id number] Acct: [id number] Name: ELIEL SOUZA Rep #:[id number] : 1970 52 From: Sameer Whiteside MD [...] Prior similar symptoms: Yes Recent Illness[facility] Medical History (Updated 12/06/22 @ 14:24 by [...] 73.9 H Lymph % (Auto) 12.2 L Tensas % (Auto) 11.6 H Eos % (Auto) [...] follows: Interpretation: Sinus Rhythm (Rate is 90. [place] to the right. MT intervalis under 68 ms. QRS duration 98 [...] your Primary Care Provider. Call [facility] ([phone]) or report to the closest Emergency Room. Call 911 if necessary. 12/06/22 1425 <Electronically signed by Sameer Whiteside MD> Cosigner Signature (if applicable): CC: Dr. Americo oBrrego MD ~ Signed [facility] Work Phone: 1(656) 923-245802-10-2023 Miscellaneous Notes* Telephone Encounter - Americo Borrego MD - 11/26/2022 4:30 PM EST OK to refill as ordered Americo Borrego MD * Telephone Encounter - Lluvia Bright Ma - 11/26/2022 4:25 PM EST Last OV: 01/07/22 virtually. Next OV: None Last Rx: 11/03/21 #45 w/11. Lluvia Bright Ma documented in this encounterJoint Township District Memorial Hospital09-23-2022 Miscellaneous Notes* Telephone Encounter - [...] you. Aide Chamberlain RN documented in this encounterJoint Township District Memorial Hospital09-23-2022 Miscellaneous Notes* Telephone Encounter - [...] 1:18 PM EDT Office received fax from [employer] for Prior Auth of pt's rescue inhaler. Pt currently being prescribed ProAir HFA 90 mcg and PA is required. Inhalers that do not require Authorization are: Albuterol Sulfate HFA Levalbuterol Tartrate Ventolin HFA. Lluvia Bright Ma documented in this encounterJoint Township District Memorial Hospital09-19-2022 Miscellaneous Notes* Telephone Encounter - [...] advise. Rhona Cardoza LPN documented in this encounterJoint Township District Memorial Hospital09-13-2022 Miscellaneous Notes* Telephone Encounter - Zulma Gloria Ma - 06/29/2022 9:16 AM EDT Pt notified of results via Cellerationhart. Zulma Gloria Ma * Telephone Encounter - Cyndi Ayala MA - 06/28/2022 2:33 PM EDT Unable to reach patient. Left VM to return call to office. Please read below and advise. Cyndi Ayala MA * Telephone Encounter - Dean Goldberg APRN.MATERIAL ENGINEER - 06/28/2022 2:24 PM EDT Patient has [...] does need increased. [facility] [place]. documented in this encounterJoint Township District Memorial Hospital08-17-2022 Miscellaneous Notes* Telephone Encounter - Avelina Sweet Ma - 06/02/2022 2:34 PM EDT Spoke to spouse who advised patient has no issue with any brand and aware has to take whatever insurance gives. [facility] ready for picker so not sure what issue is. [...] a hard time. Patient phone number is [phone] He uses the [facility] in [place] documented in this encounterJoint Township District Memorial Hospital03-24-2022 Nurse Note* Lluvia Bright Ma - 01/07/2022 2:49 PM EDT Pt requested parking placard be mailed to home address. This has been completed. Lluvia Bright Ma documented in this encounterJoint Township District Memorial Hospital03-24-2022 History of Present illness Narrative* [...] HISTORY Diagnosis Date CAD (coronary artery disease), [place] coronary artery 2014 No PCI indicated. no machine cage maker needed Closed fracture of femur (HCC) 11/2010 Depressive disorder, not elsewhere classified Diabetes mellitus type 2 in obese (HCC) DVT of lower extremity (deep venous thrombosis) ([facility]) 11/2010 left Esophageal reflux Essential hypertension [...] Past Histories independently gathered by the clinical director of academic support and the remaining scribed note accurately describes my personal service to the patient. Americo Borrego MD The documentation for this note was completed by Lluvia Bright Ma acting as scribe for Americo Borrego MD. January 07, 2022 2:36 PM. Lluvia Bright Ma documented in this encounterJoint Township District Memorial Hospital03-24-2022 Miscellaneous Notes* Telephone Encounter - [...] possible [facility] [place]. Ashley Umana Pss documented in this encounterJoint Township District Memorial Hospital01-27-2020 History of Past illness Narrative* [...] of this encounter (statuses as of 01/07/2022) [facility] History of Past illness Narrative* [...] of this encounter (statuses as of 01/07/2022) [facility] History of Past illness Narrative* [...] of this encounter (statuses as of 06/02/2022) [facility] History of Past illness Narrative* [...] of this encounter (statuses as of 06/29/2022) [facility] History of Past illness Narrative* [...] of this encounter (statuses as of 07/05/2022) [facility] History of Past illness Narrative* [...] of this encounter (statuses as of 07/09/2022) [facility] History of Past illness Narrative* [...] of this encounter (statuses as of 10/17/2022) [facility] of Past illness Narrative* [...] of this encounter (statuses as of 11/26/2022) [facility] of Past illness Narrative* [...] of this encounter (statuses as of 12/31/2022) [facility] of Past illness Narrative* [...] of this encounter (statuses as of 04/25/2023) [facility] of Past illness Narrative* [...] of this encounter (statuses as of 06/17/2023) [facility] of Past illness Narrative* [...] of this encounter (statuses as of 06/24/2023) [facility] of Past illness Narrative* [...] of this encounter (statuses as of 06/30/2023) [facility] of Past illness Narrative* [...] of this encounter (statuses as of 08/25/2023) [facility] of Past illness Narrative* [...] of this encounter (statuses as of 08/25/2023) [facility] of Past illness Narrative* [...] of this encounter (statuses as of 09/22/2023) [facility] of Past illness Narrative* [...] of this encounter (statuses as of 11/22/2023) [facility] of Past illness Narrative* [...] of this encounter (statuses as of 11/26/2023) [facility] of Past illness Narrative* [...] of this encounter (statuses as of 12/17/2023) [facility] of Past illness Narrative* [...] of this encounter (statuses as of 01/26/2024) [facility] of Past illness Narrative* [...] of this encounter (statuses as of 01/28/2024) [facility] note* Diagnosis Chronic obstructive pulmonary disease with acute exacerbation (HCC)- Primary Obstructive chronic bronchitis with exacerbation documented in this encounter [facility] note* Diagnosis Type 2 diabetes mellitus without complication, 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 long-term insulin use (HCC) documented in this encounter [facility] noteNo assessment information availableWWayne HealthCare [facility] Work Phone: Evaluation note* Diagnosis Hyperlipidemia, unspecified hyperlipidemia type- Primary Controlled type 2 diabetes mellitus without complication, with long-term current use of insulin (HCC) Essential hypertension Unspecified essential hypertension documented in this encounter [facility] note* Diagnosis Type 2 diabetes mellitus without complication, 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 (HCC) documented in this encounter [facility] note* Diagnosis Type 2 diabetes mellitus without complication, 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 (HCC)- Primary Essential hypertension Unspecified essential hypertension Hyperlipidemia, unspecified hyperlipidemia type Depression, unspecified depression type FAISAL (generalized anxiety disorder) Generalized anxiety disorder Chronic obstructive pulmonary disease, unspecified COPD type (HCC) Gastroesophageal reflux disease, 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 esophagitis present Obstructive sleep apnea treated with BiPAP Encounter for screening for lung cancer documented in this encounter [facility] note* Diagnosis SOB (shortness of breath)- Primary Shortness of breath COPD with exacerbation (HCC) Obstructive chronic bronchitis with exacerbation documented in this encounter [facility] note* Diagnosis Asthma with COPD with exacerbation (HCC) (HCC)- Primary Chronic obstructive asthma with exacerbation documented in this encounter [facility] note* Diagnosis Chronic obstructive pulmonary disease, unspecified COPD type (HCC) Type 2 diabetes mellitus without complication, 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 long-term insulin use (HCC) documented in this encounter [facility] note* Diagnosis Type 2 diabetes mellitus without complication, 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 long-term insulin use (HCC)- Primary Essential hypertension Unspecified [...] (HCC) Thrombocytopenia, unspecified [facility] Diagnosis Essential hypertension Unspecified essential hypertension documented in this encounter [facility] note* Diagnosis Left lower quadrant abdominal pain- Primary documented in this encounter [facility] note* Diagnosis Hospital discharge follow-up- Primary Other follow-up examination Type 2 diabetes mellitus without complication, 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 (HCC) Essential hypertension Unspecified essential [...] and behavioral disorders documented in this encounter [facility] note* Diagnosis COPD with exacerbation (HCC)- [...] not elsewhere classified Coronary artery disease involving [place] coronary artery of [place] heart Hyponatremia Hyposmolality and/or hyponatremia Hypophosphatemia Disorders [...] 2 diabetes mellitus without complication, 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 long-term insulin use (HCC) documented in this encounter [facility] note* Diagnosis COPD with exacerbation (HCC)- [...] not elsewhere classified Coronary artery disease involving [place] coronary artery of [place] heart Hyponatremia Hyposmolality and/or hyponatremia Hypophosphatemia Disorders [...] Shortness of breath [facility] Diagnosis COPD with exacerbation ([facility])- Primary Obstructive chronic bronchitis with exacerbation [...] not elsewhere classified Coronary artery disease involving [place] coronary artery of [place] heart Hyponatremia Hyposmolality and/or hyponatremia Hypophosphatemia Disorders [...] hyperglycemia, with long-term current use of insulin ([facility])- Primary Depression, unspecified depression type Gastroesophageal reflux disease, 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 esophagitis present Hyperlipidemia, unspecified hyperlipidemia type Chronic obstructive pulmonary disease, unspecified COPD type (HCC) Mild asthma without complication, 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 persistent Coronary artery disease involving [place] coronary artery of [place] heart without angina pectoris Obstructive sleep apnea treated with BiPAP Essential hypertension Unspecified essential hypertension documented in this encounter [facility] note* Diagnosis COPD with exacerbation (HCC)- [...] not elsewhere classified Coronary artery disease involving [place] coronary artery of [place] heart Hyponatremia Hyposmolality and/or hyponatremia Hypophosphatemia Disorders [...] 2 diabetes mellitus without complication, 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 long-term insulin use ([facility]) documented in this encounter [facility] note* Diagnosis COPD with exacerbation (HCC)- [...] not elsewhere classified Coronary artery disease involving [place] coronary artery of [place] heart Hyponatremia Hyposmolality and/or hyponatremia Hypophosphatemia Disorders [...] 2 diabetes mellitus without complication, 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 (HCC)- Primary Essential hypertension Unspecified essential hypertension Hyperlipidemia, unspecified hyperlipidemia type Depression, unspecified depression type FAISAL (generalized anxiety disorder) Generalized anxiety disorder Gastroesophageal reflux disease, 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 esophagitis present Mild asthma without complication, 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 persistent Obstructive sleep apnea treated with BiPAP Chronic obstructive pulmonary disease, unspecified COPD type (HCC) History of ileostomy Ileostomy status documented in this encounter [facility] note* Diagnosis COPD with exacerbation (HCC)- [...] not elsewhere classified Coronary artery disease involving [place] coronary artery of [place] heart Hyponatremia Hyposmolality and/or hyponatremia Hypophosphatemia Disorders [...] Unspecified essential hypertension [facility] Additional Instructions Please continue your albuterol inhaler to help with bronchospasm/shortness of breath. Use the prescribed cough medication to help reduce your cough and follow-up with your family doctor for repeat evaluation. Your workup today shows no sign of heart damage or pneumonia. Please return to the ER should you have any worsening of symptoms or any further concernsWWay[facility] Work Phone: Hospital Discharge instructionsAdditional Instructions Use [...] viral illness that is causing a COPD exacerbationWWayne HealthCare [facility] Campus Work Phone: Reason for referral (narrative)* Outpatient Procedure (Routine) - Authorized Specialty Diagnoses / Procedures Referred By Contac t Referred To Contact [facility] Diagnoses Chronic obstructive pulmonary disease, unspecified COPD type (HCC) Procedures SPIROMETRY - BASELINE AND POST DILATOR BRNCDILAT RSPSE SPMTRY PRE&POST-BRNCDILAT ADMN Americo Borrego MD [address] [place] [address] Respiratory [place] [address] [place] [address] Referral ID Status Reason Start Date Expiration Date Visits Requested Visits Authorized [id number] Authorized Auto-Generat ed Referral 02/20/2024 03/21/2025 1 1 [facility] for referral (narrative)No reason for referral information availableWWayne HealthCare [facility] Work Phone: Summary Purpose Family History No [...] FoundDocuments on File Type Date Recorded 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 Advance Directive(s) 09/15/2020 5:06 AM Advance Directive(s) 09/03/2020 2:18 PM Advance Directive(s) 04/29/2020 11:50 AM Advance Directive(s) 04/29/2020 3:25 PM Advance Directive(s) 04/29/2020 3:26 PM Advance Directive(s) 11/08/2019 6:53 AM Documents on File Type Date Recorded 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 Advance Directive(s) 04/29/2020 3:26 PM Advance Directive Response Recorded Date/ Time Advance Directives No November 18, 2016 1:01pm Living Will No December 06, 023 11:32am Power of Clinical Exercise Physiologist No December 06, 2022 11:32am Advance Directive Response Recorded Date/ Time Advance Directives No November 18, 2016 2:01pm Living Will No January 29, 2024 12:08am Power of Clinical Exercise Physiologist No January 28 12:08am Documents on File Type Date Recorded 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 No July 06, 2025 3:02pm Advance Directives No November 18, 2016 2:01pm Procedure Findings Note HNO ID: [id number] Author: Sunny Bingham Service: ? Author Type: Nurse Flagsetter Type: Anesthesia Procedure Notes Filed: 09/03/2020 4:34 PM Note Text: ANESTHESIOLOGY PROCEDURE NOTE Airway General Information Procedure Start Time/Medication Administration: 09/03/2020 4:29 PM Patient location during procedure: OR Timeout Performed Pre-procedure: timeout performed Consent Obtained: Yes Patient identity confirmed: arm band Staffing DOG HANDLER: Lloyd Bingham Performed by: ALVARO Indications and [...] no Airway not difficult SIGNATURE: Lloyd Bingham APRN.DOG HANDLER PATIENT NAME: (more content not included)... Chief Complaint and Reason for Visit Chief Complaint n/v/d Chief Complaint sob Chief Complaint Admit Date sob July 06, 2025 3:02pm Reason for Referral Specialty Diagnoses / Procedures Referred By Gwen t Referred To Contact Ophthalmology Diagnoses Type 2 diabetes mellitus without complication, 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 long-term insulin use (HCC) Procedures CONSULT TO OPHTHALMOLOGY OFFICE/OUTPATIENT [facility] HIGH MDM 60 MINUTES Americo Borrego MD [address] [place] [address] Referral ID Status Reason Start Date Expiration Date Visits Requested Visits Authorized [id number] Authorized PCP Requested Referral 05/22/2024 05/22/2025 1 1 Additional Source Comments (unrecognized sect ion and content) No Status Records FoundNo Status Records FoundNo Status Records FoundNo Status Records Found INFORMATION SOURCE (unrecogn ized section and content) DATE CREATED AUTHOR 09/04/2020 [facility] ([place]) DATE CREATED AUTHOR AUTHOR'S ORGANIZ ATION 09/09/2020 [facility] DATE CREATED AUTHOR AUTHOR'S ORGANIZ ATION 04/13/2025 [facility] DATE CREATED AUTHOR AUTHOR'S ORGANIZ ATION 08/28/2025 [facility] Source Comments (unrecognize d section and content) In the event this informatio n is protected by the Federal Confidentiality of Alcohol and Drug Abuse Patient Records regulations: The Federal rules restrict any use of the information to criminally investigate or prosecute any alcohol or drug abuse patient.[facility] the event this information is protected by the Federal Confidentiality of Alcohol and Drug Abuse Patient Records regulations: The Federal rules restrict any use of the information to criminally investigate or prosecute any alcohol or drug abuse patient.[facility] HospitalIn the event this information is protected by the Federal Confidentiality of Alcohol and Drug Abuse Patient Records regulations: The Federal rules restrict any use of the information to criminally investigate or prosecute any alcohol or drug abuse patient.[facility] HospitalIn the event this information is protected by the Federal Confidentiality of Alcohol and Drug Abuse Patient Records regulations: The Federal rules restrict any use of the information to criminally investigate or prosecute any alcohol or drug abuse patient.[facility] HospitalIn the event this information is protected by the Federal Confidentiality of Alcohol and Drug Abuse Patient Records regulations: The Federal rules restrict any use of the information to criminally investigate or prosecute any alcohol or drug abuse patient.[facility] HospitalIn the event this information is protected by the Federal Confidentiality of Alcohol and Drug Abuse Patient Records regulations: The Federal rules restrict any use of the information to criminally investigate or prosecute any alcohol or drug abuse patient.[facility] HospitalIn the event this information is protected by the Federal Confidentiality of Alcohol and Drug Abuse Patient Records regulations: The Federal rules restrict any use of the information to criminally investigate or prosecute any alcohol or drug abuse patient.[facility] HospitalIn the event this information is protected by the Federal Confidentiality of Alcohol and Drug Abuse Patient Records regulations: The Federal rules restrict any use of the information to criminally investigate or prosecute any alcohol or drug abuse patient.[facility] HospitalIn the event this information is protected by the Federal Confidentiality of Alcohol and Drug Abuse Patient Records regulations: The Federal rules restrict any use of the information to criminally investigate or prosecute any alcohol or drug abuse patient.[facility] HospitalIn the event this information is protected by the Federal Confidentiality of Alcohol and Drug Abuse Patient Records regulations: The Federal rules restrict any use of the information to criminally investigate or prosecute any alcohol or drug abuse patient.[facility] HospitalIn the event this information is protected by the Federal Confidentiality of Alcohol and Drug Abuse Patient Records regulations: The Federal rules restrict any use of the information to criminally investigate or prosecute any alcohol or drug abuse patient.[facility] HospitalIn the event this information is protected by the Federal Confidentiality of Alcohol and Drug Abuse Patient Records regulations: The Federal rules restrict any use of the information to criminally investigate or prosecute any alcohol or drug abuse patient.[facility] HospitalIn the event this information is protected by the Federal Confidentiality of Alcohol and Drug Abuse Patient Records regulations: The Federal rules restrict any use of the information to criminally investigate or prosecute any alcohol or drug abuse patient.[facility] HospitalIn the event this information is protected by the Federal Confidentiality of Alcohol and Drug Abuse Patient Records regulations: The Federal rules restrict any use of the information to criminally investigate or prosecute any alcohol or drug abuse patient.[facility] HospitalIn the event this information is protected by the Federal Confidentiality of Alcohol and Drug Abuse Patient Records regulations: The Federal rules restrict any use of the information to criminally investigate or prosecute any alcohol or drug abuse patient.[facility] HospitalIn the event this information is protected by the Federal Confidentiality of Alcohol and Drug Abuse Patient Records regulations: The Federal rules restrict any use of the information to criminally investigate or prosecute any alcohol or drug abuse patient.[facility] HospitalIn the event this information is protected by the Federal Confidentiality of Alcohol and Drug Abuse Patient Records regulations: The Federal rules restrict any use of the information to criminally investigate or prosecute any alcohol or drug abuse patient.[facility] HospitalIn the event this information is protected by the Federal Confidentiality of Alcohol and Drug Abuse Patient Records regulations: The Federal rules restrict any use of the information to criminally investigate or prosecute any alcohol or drug abuse patient.[facility] HospitalIn the event this information is protected by the Federal Confidentiality of Alcohol and Drug Abuse Patient Records regulations: The Federal rules restrict any use of the information to criminally investigate or prosecute any alcohol or drug abuse patient.[facility] HospitalIn the event this information is protected by the Federal Confidentiality of Alcohol and Drug Abuse Patient Records regulations: The Federal rules restrict any use of the information to criminally investigate or prosecute any alcohol or drug abuse patient.[facility] HospitalIn the event this information is protected by the Federal Confidentiality of Alcohol and Drug Abuse Patient Records regulations: The Federal rules restrict any use of the information to criminally investigate or prosecute any alcohol or drug abuse patient.[facility] HospitalIn the event this information is protected by the Federal Confidentiality of Alcohol and Drug Abuse Patient Records regulations: The Federal rules restrict any use of the information to criminally investigate or prosecute any alcohol or drug abuse patient.[facility] HospitalIn the event this information is protected by the Federal Confidentiality of Alcohol and Drug Abuse Patient Records regulations: The Federal rules restrict any use of the information to criminally investigate or prosecute any alcohol or drug abuse patient.[facility] HospitalIn the event this information is protected by the Federal Confidentiality of Alcohol and Drug Abuse Patient Records regulations: The Federal rules restrict any use of the information to criminally investigate or prosecute any alcohol or drug abuse patient.[facility] HospitalIn the event this information is protected by the Federal Confidentiality of Alcohol and Drug Abuse Patient Records regulations: The Federal rules restrict any use of the information to criminally investigate or prosecute any alcohol or drug abuse patient.[facility] HospitalIn the event this information is protected by the Federal Confidentiality of Alcohol and Drug Abuse Patient Records regulations: The Federal rules restrict any use of the information to criminally investigate or prosecute any alcohol or drug abuse patient.[facility] HospitalIn the event this information is protected by the Federal Confidentiality of Alcohol and Drug Abuse Patient Records regulations: The Federal rules restrict any use of the information to criminally investigate or prosecute any alcohol or drug abuse patient.[facility] HospitalIn the event this information is protected by the Federal Confidentiality of Alcohol and Drug Abuse Patient Records regulations: The Federal rules restrict any use of the information to criminally investigate or prosecute any alcohol or drug abuse patient.[facility] HospitalIn the event this information is protected by the Federal Confidentiality of Alcohol and Drug Abuse Patient Records regulations: The Federal rules restrict any use of the information to criminally investigate or prosecute any alcohol or drug abuse patient.[facility] HospitalIn the event this information is protected by the Federal Confidentiality of Alcohol and Drug Abuse Patient Records regulations: The Federal rules restrict any use of the information to criminally investigate or prosecute any alcohol or drug abuse patient.[facility] HospitalIn the event this information is protected by the Federal Confidentiality of Alcohol and Drug Abuse Patient Records regulations: The Federal rules restrict any use of the information to criminally investigate or prosecute any alcohol or drug abuse patient.[facility] HospitalIn the event this information is protected by the Federal Confidentiality of Alcohol and Drug Abuse Patient Records regulations: The Federal rules restrict any use of the information to criminally investigate or prosecute any alcohol or drug abuse patient.[facility] HospitalIn the event this information is protected by the Federal Confidentiality of Alcohol and Drug Abuse Patient Records regulations: The Federal rules restrict any use of the information to criminally investigate or prosecute any alcohol or drug abuse patient.[facility] HospitalIn the event this information is protected by the Federal Confidentiality of Alcohol and Drug Abuse Patient Records regulations: The Federal rules restrict any use of the information to criminally investigate or prosecute any alcohol or drug abuse patient.[facility] HospitalIn the event this information is protected by the Federal Confidentiality of Alcohol and Drug Abuse Patient Records regulations: The Federal rules restrict any use of the information to criminally investigate or prosecute any alcohol or drug abuse patient.[facility] HospitalIn the event this information is protected by the Federal Confidentiality of Alcohol and Drug Abuse Patient Records regulations: The Federal rules restrict any use of the information to criminally investigate or prosecute any alcohol or drug abuse patient.[facility] HospitalIn the event this information is protected by the Federal Confidentiality of Alcohol and Drug Abuse Patient Records regulations: The Federal rules restrict any use of the information to criminally investigate or prosecute any alcohol or drug abuse patient.[facility] HospitalIn the event this information is protected by the Federal Confidentiality of Alcohol and Drug Abuse Patient Records regulations: The Federal rules restrict any use of the information to criminally investigate or prosecute any alcohol or drug abuse patient.[facility] Reason for Visit (unrecogniz ed [...] Date Comments Population Health Navigation Outreach 08/22/2024 [facility] Reason Comments F/U 3 Month Reason Onset Date Comments ACM SILVANO RN 09/12/2024 Medication Ad herence Review at request of payer Reason Onset Date Comments Refill Request 09/28/2024 Reason Comments Medication Problem Med Refills Reason Onset Date Comments Refill Request 06/13/2025 Care Teams (unrecognized sec tion and content) Child And Family Therapist Relationship Specialty Start Date End Date Americo Borrego MD [address] [facility] [place] [address] PCP - General Family Practice 05/07/15 Americo Borrego MD [address] [place] [address] Family Practice 05/07/15 Child And Family Therapist Relationship Specialty Start Date End Date Americo Borrego MD [address] [place] [address] PCP - General Family Practice 05/07/15 Americo Borrego MD [address] [place] [address] Family Practice 05/07/15 Child And Family Therapist Relationship Specialty Start Date End Date Americo Borrego MD [address] [place] [address] PCP - General Family Practice 05/07/15 Americo Borrego MD [address] [place] [address] Family Practice 05/07/15 Child And Family Therapist Relationship Specialty Start Date End Date Americo Borrego MD [address] [place] [address] PCP - General Family Medicine 05/07/15 Americo Borrego MD [address] [place] [address] Family Medicine 05/07/15 Child And Family Therapist Relationship Specialty Start Date End Date Americo Borrego MD [address] [place] [address] PCP - General Family Medicine 05/07/15 Americo Borrego MD [address] [place] [address] Family Medicine 05/07/15 Child And Family Therapist Relationship Specialty Start Date End Date Americo Borrego MD [address] [place] [address] PCP - General Family Medicine 05/07/15 Americo Borrego MD [address] [place] [address] Family Medicine 05/07/15 Team Status: Active Member Role Status Dates Dr. Americo Borrego MD Family Provider Active Dr. Americo Borrego MD Primary Care Provider Active Team Status: Inactive Member Role Status Dates Dr. Americo Borrego MD Primary Care Provider Active Dr. Sameer Whiteside MD Emergency Provider Active Child And Family Therapist Relationship Specialty Start Date End Date Americo Borrego MD [address] [place] [place] [address] PCP - General Family Medicine 05/07/15 Americo Borrego MD [address] [place] [address] Family Medicine 05/07/15 Child And Family Therapist Relationship Specialty Start Date End Date Americo Borrego MD [address] [place] [address] PCP - General Family Medicine 05/07/15 Americo Borrego MD [address] [place] [address] Family Medicine 05/07/15 Child And Family Therapist Relationship Specialty Start Date End Date Americo Borrego MD [address] [place] [address] PCP - General Family Medicine 05/07/15 Americo Borrego MD [address] [place] [address] Family Medicine 05/07/15 Child And Family Therapist Relationship Specialty Start Date End Date Americo Borrego MD [address] [place] [address] PCP - General Family Medicine 05/07/15 Americo Borrego MD [address] [place] [address] Family Medicine 05/07/15 Child And Family Therapist Relationship Specialty Start Date End Date Americo Borrego MD [address] [place] [address] PCP - General Family Medicine 05/07/15 Americo Borrego MD [address] [place] [address] Family Medicine 05/07/15 Child And Family Therapist Relationship Specialty Start Date End Date Americo Borrego MD [address] [place] [address] PCP - General Family Medicine 05/07/15 Americo Borrego MD [address] [place] [address] Family Medicine 05/07/15 Child And Family Therapist Relationship Specialty Start Date End Date Americo Borrego MD [address] [place] [address] PCP - General Family Medicine 05/07/15 Americo Borrego MD [address] [place] [place] [address] Family Medicine 05/07/15 Child And Family Therapist Relationship Specialty Start Date End Date Americo Borrego MD [address] [facility] [place] [address] PCP - General Family Medicine 05/07/15 Americo Borrego MD [address] [place] [address] Family Medicine 05/07/15 Child And Family Therapist Relationship Specialty Start Date End Date Americo Borrego MD [address] [facility] [place] [address] PCP - General Family Medicine 05/07/15 Americo Borrego MD [address] [place] [place] [address] Family Medicine 05/07/15 Child And Family Therapist Relationship Specialty Start Date End Date Americo Borrego MD [address] [facility] [place] [address] PCP - General Family Medicine 05/07/15 Americo Borrego MD [address] [place] [address] Family Medicine 05/07/15 Child And Family Therapist Relationship Specialty Start Date End Date Americo Borrego MD [address] [place] [place] [address] PCP - General Family Medicine 05/07/15 Americo Borrego MD [address] [place] [address] Family Medicine 05/07/15 Team Status: Inactive Member Role Status Dates Dr. Americo Borrego MD Primary Care Provider Active Dr. Bruce Dong DO Emergency Provider Active Child And Family Therapist Relationship Specialty Start Date End Date Americo Borrego MD [address] [facility] [place] [address] PCP - General Family Medicine 05/07/15 Americo Borrego MD [address] [place] [address] Family Medicine 05/07/15 Child And Family Therapist Relationship Specialty Start Date End Date Americo Borrego MD [address] [facility] [place] [address] PCP - General Family Medicine 05/07/15 Americo Borrego MD [address] [place] [address] Family Medicine 05/07/15 Child And Family Therapist Relationship Specialty Start Date End Date Americo Borrego MD [address] [place] [place] [address] PCP - General Family Medicine 05/07/15 Americo Borrego MD [address] [place] [address] Family Medicine 05/07/15 Child And Family Therapist Relationship Specialty Start Date End Date Americo Borrego MD [address] [place] [address] PCP - General Family Medicine 05/07/15 Americo Borrego MD [address] [place] [address] Family Medicine 05/07/15 Child And Family Therapist Relationship Specialty Start Date End Date Americo Borrego MD [address] [place] [address] PCP - General Family Medicine 05/07/15 Americo Borrego MD [address] [place] [address] Family Medicine 05/07/15 Child And Family Therapist Relationship Specialty Start Date End Date Americo Borrego MD [address] [place] [address] PCP - General Family Medicine 05/07/15 Americo Borrego MD [address] [place] [address] Family Medicine 05/07/15 Child And Family Therapist Relationship Specialty Start Date End Date Americo Borrego MD [address] [place] [address] PCP - General Family Medicine 05/07/15 Americo Borrego MD [address] [place] [address] Family Medicine 05/07/15 Child And Family Therapist Relationship Specialty Start Date End Date Americo Borrego MD [address] [place] [address] PCP - General Family Medicine 05/07/15 Americo Borrego MD [address] [place] [address] Family Medicine 05/07/15 Child And Family Therapist Relationship Specialty Start Date End Date Americo Borrego MD [address] [place] [address] PCP - General Family Medicine 05/07/15 Americo Borrego MD [address] [place] [address] Family Medicine 05/07/15 Child And Family Therapist Relationship Specialty Start Date End Date Americo Borrego MD [address] [place] [address] PCP - General Family Medicine 05/07/15 Americo Borrego MD [address] [place] [address] Family Medicine 05/07/15 Child And Family Therapist Relationship Specialty Start Date End Date Americo Borrego MD [address] [place] [address] PCP - General Family Medicine 05/07/15 Americo Borrego MD [address] [place] [address] Family Medicine 05/07/15 Malika Sethi APRN.CNP [address] [place] [address] Diabetes Clinical Manager Family Medicine 09/23/24 Child And Family Therapist Relationship Specialty Start Date End Date Americo Borrego MD [address] [place] [address] PCP - General Family Medicine 05/07/15 Americo Borrego MD [address] [place] [address] Family Medicine 05/07/15 Malika Sethi APRN.MATERIAL ENGINEER [address] [place] [address] Diabetes Clinical Manager Family Medicine 09/23/24 Dean Golbderg APRN.MATERIAL ENGINEER [address] [facility] [place] [address] Diabetes Clinical Manager Family Medicine 10/02/24 Child And Family Therapist Relationship Specialty Start Date End Date Americo Borrego MD [address] [place] [place] [address] PCP - General Family Medicine 05/07/15 Americo Borrego MD [address] [place] [address] Family Medicine 05/07/15 Malika Sethi MEDICAL BILLING SUPERVISOR.MATERIAL ENGINEER [address] [facility] [place] [address] Diabetes Clinical Manager Family Medicine 09/23/24 Dean Goldberg APRN.MATERIAL ENGINEER [address] [place] [address] Diabetes Clinical Manager Family Medicine 10/02/24 Child And Family Therapist Relationship Specialty Start Date End Date Americo Borrego MD [address] [place] [place] [address] PCP - General Family Medicine 05/07/15 Americo Borrego MD [address] [place] [address] Family Medicine 05/07/15 Dean Goldberg APRN.MATERIAL ENGINEER [address] [place] [address] Diabetes Clinical Manager Family [facility] 10/02/24 Child And Family Therapist Relationship Specialty Start Date End Date Americo Borrego MD [address] [place] [address] PCP - General Family Medicine 05/07/15 Americo Borrego MD [address] [place] [address] Family Medicine 05/07/15 Dean Goldberg APRN.MATERIAL ENGINEER [address] [place] [address] Diabetes Clinical Manager [facility] 10/02/24 Team Status: Active Member Role/Relationship [...] BE BASED ON THE PRIMARY CLINICAL RECORDS. [facility] [employer] [facility]. provides no warranty or guarantee of the accuracy or completeness of information in this document.
--- NOTE | 2025-09-20 07:00 | PN.HOSP_ITS ---
Hospitalist Note Patient is a 55-year-old male with a past medical history of tobacco abuse and history of COPD and CATY who presented to the emergency department at [facility] with shortness of breath and cough that was fairly nonproductive. Symptoms have been ongoing for about 3 days and he had known sick exposure at home. He tested positive for influenza A. He was initially started on Tamiflu, ceftriaxone and azithromycin however without any significant sputum production, marked fever, or leukocytosis the antibiotics were on hold. Sputum culture was pending. He was kept on steroids, aggressive nebulizers, and Acapella and incentive spirometer were added. He was given a dose of Lasix 40 mg IV push x 1 and placed on BiPAP at night given his history of obstructive sleep apnea. 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 He is not oxygen dependent at baseline but requiring 2 L via nasal cannula to maintain sats at this time. We will wean as able. If his sats look good tomorrow and his lung exam improves as he was fairly wheezy and coarse on 09/20/2025 patient may be able to be discharged home on 09/21/2025 but this will be dependent on his reevaluation and further exam. Plan of care was discussed with patient he voiced understanding. Patient does have history of diabetes so I do expect the utilization of steroids will cause steroid-induced hyperglycemia on DM-2. 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
--- NOTE | 2025-09-20 07:09 | PCM.HP.STD ---
HPI - General General Date of Admission: 09/20/25 Date of Service: 09/20/25 Chief Complaint: Shortness of breath worsening for 4 days HPI Narrative CEASAR SÁNCHEZ, is a 55 M who came to ED yesterday for shortness of breath fever cough for past couple days and her daughter who is 22-year-old is also sick with a virus. Patient has history of COPD and he is on scheduled maintenance inhaler and DuoNeb nebulization but does not use oxygen. 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 Yesterday patient was sent home after chest x-ray which shows mild bilateral basilar atelectatic changes on prednisone and doxycycline. Patient came back today with worsening shortness of breath therefore came to ED. Patient also complained of right-sided pleuritic chest pain over lower ribs and upper abdomen mainly from coughing. Patient tachycardic and tachypneic in the ER but not hypoxic. Afebrile. Triple PCR positive for influenza A. Patient started on IV antibiotic and Tamiflu. FORMERLY [facility], [facility]–1983 Medical History Diverticulitis Femur fracture Rib fracture H. pylori infection Cholecystitis Fatty liver Depression BPH (benign prostatic hyperplasia) DVT (deep venous thrombosis) GERD (gastroesophageal reflux disease) Diverticula of colon HTN (hypertension) COPD (chronic obstructive pulmonary disease) Diabetes mellitus Home Medications ?Medication ?Instructions ?Recorded ?Last Taken ?Type albuterol sulfate 2.5 mg/3 mL 2.5 mg inhalation Q6H PRN PRN Sob 01/03/16 11/18/16 04:00 History (0.083 %) solution for nebulization &/Or Wheezing atorvastatin 40 mg tablet 40 mg PO QHS 01/03/16 08/05/19 History citalopram 20 mg tablet 30 mg PO DAILY 01/03/16 08/06/19 History glimepiride 2 mg tablet 2 mg PO DAILY 01/03/16 08/06/19 History lisinopril 10 mg tablet 10 mg PO DAILY 01/03/16 08/06/19 History fluticasone furoate 100 1 ea IH DAILY ##1 05/25/16 08/06/19 Rx mcg-vilanterol 25 mcg/dose inhalation powder (Breo Ellipta) albuterol sulfate 90 mcg/actuation 2 puff inhalation Q2H PRN PRN 11/20/16 08/06/19 Rx aerosol inhaler (Ventolin HFA) COUGH/WHEEZE ##0 insulin detemir U-100 100 unit/mL 50 units subcut QHS 08/06/19 08/05/19 History (3 mL) subcutaneous pen ibuprofen 800 mg tablet 800 mg PO Q8H PRN Pain 1-10 Or 09/11/20 Unknown History Fever loperamide 2 mg capsule (Imodium 2 mg PO Q4H PRN loose stool #10 12/06/22 Unknown Rx A-D) caps empagliflozin 25 mg tablet 25 mg PO DAILY 05/14/24 Unknown History (Jardiance) insulin lispro 100 unit/mL 30 unit subcut QPM 05/14/24 Unknown History subcutaneous pen blood sugar diagnostic (OneTouch 09/20/25 Unknown History Verio test strips) insulin glargine 100 unit/mL (3 40 unit subcut BID 09/20/25 Unknown History mL) subcutaneous pen (Lantus Solostar U-100 Insulin) insulin glargine-yfgn 100 unit/mL 40 unit subcut BID 09/20/25 Unknown History (3 mL) subcutaneous pen (Semglee (insulin glargine-yfgn) Pen) lisinopril 20 mg tablet 20 mg PO DAILY 09/20/25 Unknown History omeprazole 20 mg capsule,delayed 20 mg PO BID 09/20/25 Unknown History release Allergy/AdvReac Type Severity Reaction Status Date / Time No Known Allergies Allergy Verified 09/20/25 03:13 Social History household members: none Smoking Status: Former smoker substance use type: does not use ROS ROS Narrative Constitutional: Reports fatigue and weakness. [place] chills and subjective fever HEENT: Reports systems reviewed and no addt'l complaints, except as documented Respiratory/Chest: Shortness of breath, tachypnea CVS: Pleuritic chest pain endocrine HPI Gastrointestinal: Denies coffee ground emesis, hematemesis or vomiting Genitourinary: Denies burning urination or new urinary tract symptoms Musculoskeletal: Denies acute joint pain or limited range of motion. No acute injury Neurologic: Denies seizure-like symptoms. skin: No ulcer. No rash Endocrinology: Reports systems reviewed and no addt'l complaints, except as documented Hematologic/Lymphatic: Reports systems reviewed and no addt'l complaints, except as documented Rest 14 ROS are negative except as mentioned in HPI Vital Signs Vital Signs Vital Signs: 09/20/25 03:10 09/20/25 03:13 09/20/25 03:15 Temperature 98.2 F 98.2 F Temperature Source Oral Oral Pulse Rate 108 H 107 H Respiratory Rate 25 H 22 H Respiratory Effort Short of Breath Respiratory Pattern Tachypnea Blood Pressure 149/88 H 147/81 H Blood Pressure Mean 108 103 Blood Pressure Source Blood Pressure Position Blood Pressure Location Pulse Ox 95 94 Oxygen Delivery Method Room Air Room Air Room Air 09/20/25 03:16 09/20/25 03:24 09/20/25 04:10 Temperature Temperature Source Pulse Rate 105 H 92 Respiratory Rate 20 H 22 H Respiratory Effort Respiratory Pattern Normal Blood Pressure 171/90 H Blood Pressure Mean 117 Blood Pressure Source Blood Pressure Position Blood Pressure Location Pulse Ox 93 Oxygen Delivery Method Room Air Room Air 09/20/25 04:13 09/20/25 05:00 09/20/25 05:31 Temperature 98.5 F 98.3 F Temperature Source Oral Pulse Rate 92 84 92 Respiratory Rate 22 H 21 H 23 H Respiratory Effort Respiratory Pattern Blood Pressure 171/90 H 133/79 H 156/95 H Blood Pressure Mean 117 97 115 Blood Pressure Source Blood Pressure Position Blood Pressure Location Pulse Ox 93 94 95 Oxygen Delivery Method Room Air Room Air 09/20/25 06:00 09/20/25 07:02 Temperature 97.8 F Temperature Source Temporal Pulse Rate 86 102 H Respiratory Rate 20 H 32 H Respiratory Effort Respiratory Pattern Blood Pressure 156/95 H 174/103 H Blood Pressure Mean 115 126 Blood Pressure Source Monitor Blood Pressure Position Semi-Fowlers Blood Pressure Location Right Arm Pulse Ox 93 94 Oxygen Delivery Method Room Air Room Air Weight Weight: 284 lb 2.813 oz Body Mass Index (BMI) 41.9 Physical Exam Narrative General: Alert, Oriented x3, Cooperative. Morbid obesity BMI 41.5 kg/m? HEENT: Atraumatic, PERRLA, EOMI, Normocephalic. Oral: No Gingival or Mucosal Lesions/ Ulcerations Neck: Supple, No JVD, Negative Carotid Bruits Chest wall/Lungs: Reproducible right-sided chest wall tenderness. Air entry diminished in bilateral lung bases. Bilateral coarse crepitations, tachypnea Cardiovascular: Mild sinus tachycardia, Normal S1,S2, No M/G/R Abdomen: Bowel Sounds Present, Soft, Non Tender, Non-Distended : No dysuria. No renal angle tenderness. No suprapubic tenderness. Extremities: No edema, Capillary Refill Less than 3 Seconds Skin: No rashes, No breakdown Musculoskeletal: No Tenderness to Palpation of Joints or Extremities Neurological: Cranial nerves II-XII grossly intact, DTR 2+/4. No acute focal neurological deficit. Psych/Mental Status: Normal Affect, Appropriate. Results Lab / Micro Data 09/20/25 03:17 09/20/25 03:17 Labs: Laboratory Results - last 24 hr 09/20/25 03:17: WBC 6.2, RBC 5.61, Hgb 15.9, Hct 47.3, MCV 84.3, MCH 28.3, MCHC 33.6, RDW Std Deviation 40.3, RDW Coeff of Nai 13.2, Plt Count 119 L, MPV 10.4, Immature Gran % (Auto) 0.500, Neut % (Auto) 72.7 H, Lymph % (Auto) 15.9 L, Gentry % (Auto) 10.4 H, Eos % (Auto) 0.2, Baso % (Auto) 0.3, Absolute Neuts (auto) 4.5, Absolute Lymphs (auto) 0.98, Nucleated RBC % 0, Sodium 142, Potassium 3.6, Chloride 103, Carbon Dioxide 19.9 L, Anion Gap 19 H, BUN 14, Creatinine 0.67 L, Estim Creat Clear Calc 161.70, Est GFR (MDRD) Non-Af 109, BUN/Creatinine Ratio 20.7 H, Glucose 183 H, Lactic Acid 3.4 H*, Calcium 9.4, Total Bilirubin 0.60, AST 36, ALT 40, Alkaline Phosphatase 79, Troponin T High Sens 12 D, NT pro BNP II 271, Total Protein 7.5, Albumin 4.4, Globulin 3.1, Albumin/Globulin Ratio 1.4 Micro: Microbiology 09/20/25 03:17 Mucosa - Nose SARS-CoV-2, Influenza & RSV (PCR) - Final Influenzae A Imaging Radiology Impression Chest X-Ray 09/20/25 03:40 IMPRESSION: Mild bilateral basilar atelectatic pulmonary changes, unchanged. Reading Location: [place] [address] Assessment & Plan Assessment/Plan (1) COPD exacerbation: (2) Influenza A: PLAN: Plan 55-year-old gentleman being admitted for COPD exacerbation probably from influenza A 1. COPD exacerbation from influenza A bronchitis: Chest x-ray individually reviewed and shows bibasilar atelectatic pulmonary changes unchanged from yesterday. Normal mediastinum and javan. Patient started on Tamiflu. 2. SIRS criteria probably from viral bronchitis: Patient has tachycardia, tachypnea and lactic acidosis. Patient does not look toxic and does not have hypoxia and leukocytosis. Blood pressure elevated 174/103 therefore clinically I do not think patient has sepsis. Patient empirically started on IV antibiotic ceftriaxone and azithromycin as he has symptoms of 4 to 5 days with suspicion of secondary bacterial infection. Chest x-ray does not show consolidation therefore no pneumonia yet. 3. DM type II with hyperglycemia: Hyperglycemia glucose 183. Patient on long-acting insulin and Humalog insulin. The dose of Lantus and Humalog insulin decreased. Accu-Chek before meals and at bedtime with Humalog sliding scale coverage and hypoglycemia protocol. A1c tomorrow a.m. 4. Hypertension: Blood pressure is elevated. Home medication continued 5. Dyslipidemia: On statin therapy continue 6. Morbid obesity: BMI 41.5 kg/m?. Tenant Coordinator consult. Weight loss counseling done 7. DVT prophylaxis on Lovenox 40 mL subcu twice daily because of morbid obesity Living will/advanced directive/end of life care: Patient does not have living will or advanced directive. He does not have DailyD or power of attorney at law for health after discussion of benefits/risks procedures involved with full code, DNR CC arrest and DNR CC, the patient opted for full code. Patient does want artificial life support including intubation, tube feed, ventilator and/chest compression, central venous catheter, vasopressor and DC shock if needed Total time spent in [id number] encounter in discussion of advanced directive 17 minutes. Microbiology Past 72 Hours 09/20/25 03:17 Mucosa - Nose SARS-CoV-2, Influenza & RSV (PCR) - Final Influenzae A Laboratory Results 09/20/25 03:17: WBC 6.2, RBC 5.61, Hgb 15.9, Hct 47.3, MCV 84.3, MCH 28.3, MCHC 33.6, RDW Std Deviation 40.3, RDW Coeff of Nai 13.2, Plt Count 119 L, MPV 10.4, Immature Gran % (Auto) 0.500, Neut % (Auto) 72.7 H, Lymph % (Auto) 15.9 L, Gentry % (Auto) 10.4 H, Eos % (Auto) 0.2, Baso % (Auto) 0.3, Absolute Neuts (auto) 4.5, Absolute Lymphs (auto) 0.98, Nucleated RBC % 0, Sodium 142, Potassium 3.6, Chloride 103, Carbon Dioxide 19.9 L, Anion Gap 19 H, BUN 14, Creatinine 0.67 L, Estim Creat Clear Calc 161.70, Est GFR (MDRD) Non-Af 109, BUN/Creatinine Ratio 20.7 H, Glucose 183 H, Lactic Acid 3.4 H*, Calcium 9.4, Magnesium Pending, Total Bilirubin 0.60, AST 36, ALT 40, Alkaline Phosphatase 79, Troponin T High Sens 12 D, NT pro BNP II 271, Total Protein 7.5, Albumin 4.4, Globulin 3.1, Albumin/Globulin Ratio 1.4
[2025-09-20 07:23] LABS: Reflex Lactate? Y
[2025-09-20 07:34] LABS: Magnesium 2.4 mg/dL (1.5-2.2)
[2025-09-20] MEDS: KCl 20MEQ in D5NS 20 MEQ/1,000 ML IV.SOLN. 75 MEQ IV (07:58)
[2025-09-20] MEDS: Azithromycin 500 MG in 0.9% Normal Saline (250mL Bag) 250 ML 250 MG IV (07:59)
[2025-09-20] MEDS: Insulin Glargine-YFGN 100 UNIT/ML Pen 30 UNIT SC (08:04)
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
[2025-09-20] MEDS: Insulin Glargine-YFGN 100 UNIT/ML Pen 20 UNIT SC (20:55)
[2025-09-21] VITALS (9 sets, daily range): BP systolic 134–154; BP diastolic 76–87; PULSE 64–80; RESP 12–20; TEMP 36.6–36.8; O2SAT 94–98; BMI 40.8
--- NOTE | 2025-09-21 03:00 | CPS ---
Pt unable to tolerate wearing BiPAP.
[2025-09-21 04:56] LABS: Hematocrit 44.9 % (40-54); Hemoglobin 15.2 g/dL (13.0-16.5); Immature Granulocytes Count 0.030 X10^3/uL (0.0-0.0); Mean Corp Hgb Conc 33.9 g/dL (32-36); Mean Corpuscular Volume 84.7 fL (80-94); Mean Platelet Vol. 10.9 fl (6.2-12.0); NRBC Flagged by Analyzer 0 % (0-5); Platelet Count 117 K/mm3 (150-450); RBC Distribution Width CV 13.2 % (11.6-14.6); RBC Distribution Width SD 40.7 fl (35.1-43.9); Red Blood Count 5.30 M/mm3 (4.6-6.2); White Blood Count 6.4 K/mm3 (4.4-11.0)
[2025-09-21 05:29] LABS: Anion Gap 16 (5-15); BUN 19 mg/dL (4-19); BUN/Creat Ratio 35.4 RATIO (10-20); Calcium,Total 9.0 mg/dL (7.6-11.0); Carbon Dioxide 17.2 mmol/L (21.0-32.0); Chloride 103 mmol/L (98-108); Estimated Creatinine Clearance 205.62 ml/min (50-250); Glucose 245 mg/dL (70-99); Potassium 4.4 mmol/L (3.3-5.1)
[2025-09-21] MEDS: Insulin Glargine-YFGN 100 UNIT/ML Pen 20 UNIT SC (09:34)
--- NOTE | 2025-09-21 10:57 | PCM.DC.SUM ---
Providers Date of Admission: 09/20/25 Date of Discharge: 09/21/25 Primary Care Physician: Dr. Vinicio Wright MD Diagnosis Discharge Diagnosis (1) COPD exacerbation: Status: Chronic Code(s): J44.1 - Chronic obstructive pulmonary disease with (acute) exacerbation (2) Influenza A: Status: Acute Code(s): J10.1 - Influenza due to other identified influenza virus with other respiratory manifestations Medications at Discharge Home Medications albuterol sulfate 2.5 mg/3 mL (0.083 %) solution for nebulization 2.5 mg inhalation Q6H PRN PRN Sob &/Or Wheezing 01/03/16 atorvastatin 40 mg tablet 40 mg PO QHS cholesterol 01/03/16 citalopram 20 mg tablet 30 mg PO DAILY depression/anxiety 01/03/16 glimepiride 2 mg tablet 2 mg PO DAILY DM 01/03/16 fluticasone furoate 100 mcg-vilanterol 25 mcg/dose inhalation powder (Breo Ellipta) 1 ea IH DAILY ##1 05/25/16 albuterol sulfate 90 mcg/actuation aerosol inhaler (Ventolin HFA) 2 puff inhalation Q2H PRN PRN COUGH/WHEEZE ##0 11/20/16 insulin detemir U-100 100 unit/mL (3 mL) subcutaneous pen 20 units subcut .HS DM 08/06/19 ibuprofen 800 mg tablet 800 mg PO Q8H PRN Pain 1-10 Or Fever 09/11/20 loperamide 2 mg capsule (Imodium A-D) 2 mg PO Q4H PRN loose stool #10 caps 12/06/22 empagliflozin 25 mg tablet (Jardiance) 25 mg PO DAILY DM 05/14/24 blood sugar diagnostic ([employer] Verio test strips) 09/20/25 insulin glargine-yfgn 100 unit/mL (3 mL) subcutaneous pen (Semglee (insulin glargine-yfgn) Pen) 40 unit subcut BID DM 09/20/25 lisinopril 20 mg tablet 20 mg PO DAILY 09/20/25 omeprazole 20 mg capsule,delayed release 20 mg PO BID GERD 09/20/25 guaifenesin 1,200 mg tablet, extended release 12 hr (Mucus Relief ER) 1,200 mg PO BID #0 tabs 09/21/25 ipratropium 0.5 mg-albuterol 3 mg (2.5 mg base)/3 mL nebulization soln 3 ml inhalation Q6H PRN shortness of breath or wheezing #180 mL 09/21/25 oseltamivir 75 mg capsule 75 mg PO BID #7 caps 09/21/25 prednisone 10 mg tablet 10 mg PO DAILY #30 tabs 09/21/25 Hospital Course Operations None Procedures EKG and - (Chest x-ray) Summary of Care Provided Minutes Spent on Discharge: 38 Hospital Course: Mr. Souza is a 55-year-old white male who presented to the emergency department at [facility] early on the morning of 09/20/2025 complaining of shortness of breath. He had been seen the day prior in the emergency department for COPD flare. He has COPD at baseline from history of tobacco abuse but does not wear oxygen. He improved after his initial visit to the emergency department after receiving IV steroids and some breathing treatments and was discharged home but got worse on the day of presentation and came back to the emergency department for further evaluation. 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 Vital signs on presentation showed a temperature of 98.2, heart rate 108, respiratory was 25, blood pressure was 145/88 and pulse ox was 95% on room air but he did desat and was placed on 2 L nasal cannula. CBC on presentation showed thrombocytopenia which appears to fluctuate at baseline with marked monocytosis. Chemistry panel showed a slightly low carbon dioxide of 19.9 with an anion gap of 19. Renal function was normal. Glucose was 183 lactic acid was 3.4 BNP and troponin were unremarkable. EKG showed no signs of acute ischemia. Chest x-ray showed mild bibasilar atelectatic changes that were unchanged from previous. Respiratory viral panel was obtained and he was found to be positive for influenza A. Sputum culture was unremarkable preliminarily at discharge and therefore antibiotics were not pursued. Blood cultures were pending but highly doubt infection. The patient was admitted to the medical floor placed on supplemental oxygen at 2 L, aggressive pulmonary toilet with scheduled and as needed nebulizers, incentive spirometry and Acapella, and IV steroids. Initially, his breath sounds were quite coarse but he slowly improved with time and was able to be weaned off oxygen. We obtained an ambulatory pulse ox on the a.m. of 09/21/2025 and the patient was not requiring any oxygen at rest or with exertion. The patient indicated he felt 89% better and was anxious to go home. Given his marked clinical improvement and the resolution of his hypoxia we felt it was stable for him to go home. He was treated with Tamiflu given his influenza A findings on admission he will continue Tamiflu at discharge. Will also go ahead and continue a prednisone taper. Patient does not have DuoNebs at home so these were prescribed as well. I have encouraged him to continue using his incentive spirometer and Acapella. Given the fact he does not follow-up with pulmonary medicine I will make a referral to Dr. Bharat Baird. Patient is to call next week to set up an appointment at his convenience with the earliest availability and Dr. Baird schedule. He is to follow-up with his primary care physician within the next 2 weeks. Patient was able to be discharged home in stable condition on 09/21/2025 and prescriptions were sent to local pharmacy at the time of discharge. 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 He no longer requiring oxygen. States his wheezing is resolved. Chest does not feel tight. Const alert, oriented x3, no apparent distress, no limitations and well nourished; Negative for average body habitus or healthy appearing Constitutional Narrative: Morbidly obese, middle-aged, white male, sitting up in a chair at bedside, appears as if he is feeling much better than yesterday, nontoxic-appearing, on room air General Appearance: cooperative, comfortable, well kempt and well developed Exam Limitations: no limitations Nutritional Appearance: morbidly obese HEENT normocephalic, head/scalp atraumatic, hearing grossly normal bilaterally and moist oral mucous membranes HEENT Narrative: Mallampati 3-4, no thrush Eyes conjunctivae normal Eyes Narrative: No scleral icterus Neck supple Neck Narrative: Trachea midline Resp normal respiratory effort, no retractions, no use of accessory muscles and No clear to auscultation bilaterally Resp Narrative: Diffusely diminished with few scattered coarse breath sounds but much improved in the last 24 hours Auscultation: Negative for rhonchi or wheezes Cardio regular rate, regular rhythm, S1 normal heart sound, S2 normal heart sound, no murmurs, no rub, no gallops and no clicks GI normal to inspection, nondistended, normoactive bowel sounds, soft to palpation and non-tender GI Narrative: Large protuberant abdomen Extremity no clubbing, cyanosis or edema Extremity Narrative: 2+ pedal and radial pulses Skin no jaundice, no petechiae and no mottling Neuro moves all extremities and no focal motor deficits Speech: speech normal Psych affect normal Psych Narrative: Eye contact is good and patient interacts appropriately Weight / BMI Weight Weight: 129.4 kg Body Mass Index (BMI) 40.8 ABG / Lab / Microbiology Data 09/21/25 04:21 09/21/25 04:21 Laboratory: Laboratory Results - last 24 hr 09/20/25 11:03: POC Glucose 256 H 09/20/25 16:04: POC Glucose 306 H 09/20/25 20:01: POC Glucose 294 H 09/21/25 04:21: WBC 6.4, RBC 5.30, Hgb 15.2, Hct 44.9, MCV 84.7, MCH 28.7, MCHC 33.9, RDW Std Deviation 40.7, RDW Coeff of Nai 13.2, Plt Count 117 L, MPV 10.9, Immature Gran % (Auto) 0.500, Neut % (Auto) 81.2 H, Lymph % (Auto) 11.4 L, Allen % (Auto) 6.7, Eos % (Auto) 0.0, Baso % (Auto) 0.2, Absolute Neuts (auto) 5.2, Absolute Lymphs (auto) 0.73 L, Nucleated RBC % 0, Sodium 136, Potassium 4.4, Chloride 103, Carbon Dioxide 17.2 L, Anion Gap 16 H, BUN 19, Creatinine 0.54 L, Estim Creat Clear Calc 205.62, Est GFR (MDRD) Non-Af 116, BUN/Creatinine Ratio 35.4 H, Glucose 245 H, Hemoglobin A1c 9.4 H, Calcium 9.0 09/21/25 05:31: POC Glucose 231 H Microbiology: Microbiology 09/20/25 08:30 Sputum, Expectorated/Coughed Gram Stain - Final 09/20/25 08:30 Sputum, Expectorated/Coughed Respiratory Culture - Preliminary Appears to be normal respiratory amanda. Further studies to follow. 09/20/25 08:45 Nasal Secretion MRSA (PCR) - Final 09/20/25 08:30 Urine, Clean Catch Legionella Antigen - Final 09/20/25 08:30 Urine, Clean Catch Streptococcus pneumoniae Antigen (M - Final 09/20/25 03:17 Mucosa - Nose SARS-CoV-2, Influenza & RSV (PCR) - Final Influenzae A D/C Instructions Discharge Activity: Return to Normal Activity DC O2, CPAP, BIPAP Needs Home O2 Discharge instructions: No DC home with Oxygen: No Meaningful Use Info Meaningful Use Meaningful Use Diagnoses (Choose all that apply): None applicable Discharge Plan Admission Admit Date/Time: 09/20/25 06:25 Primary Reason for Your Visit: Shortness of breath Attending Provider: Zulma Monsalve Primary Care Provider: Vinicio Wright Consulting Providers: Salo Garcia Discharge Orders/Prescriptions Prescriptions: New oseltamivir 75 mg Capsule 75 mg PO BID Qty: 7 0RF guaifenesin [Mucus Relief ER] 1,200 mg Tablet Extended Release 12hr 1,200 mg PO BID Qty: 0 0RF Rx Instructions: Diet [id number] and take for the next 5 to 7 days prednisone 10 mg tablet 10 mg PO DAILY Qty: 30 0RF Rx Instructions: Take 4 tablets x 3 days, 3 tabs x 3 days, 2 tablets x 3 days, 1 tablet x 3 days and stop ipratropium-albuterol 0.5 mg-3 mg(2.5 mg base)/3 mL solution for nebulization 3 ml inhalation Q6H PRN (Reason: shortness of breath or wheezing) Qty: 180 0RF Continued atorvastatin 40 MG tablet 40 mg PO QHS Patient Comments: cholesterol albuterol sulfate 2.5 MG/3 ML solution for nebulization 2.5 mg inhalation Q6H PRN PRN (Reason: Sob &/Or Wheezing) Patient Comments: breathing glimepiride 2 MG tablet 2 mg PO DAILY Patient Comments: diabetes citalopram 20 MG tablet 30 mg PO DAILY Patient Comments: depression fluticasone furoate-vilanterol [Breo Ellipta] 1 EACH blister with device 1 ea IH DAILY Qty: 1 1RF Patient Comments: breathing albuterol sulfate [Ventolin HFA] 1 INHALER inhaler 2 puff inhalation Q2H PRN PRN (Reason: COUGH/WHEEZE) Qty: 0 0RF Patient Comments: breathing insulin detemir U-100 100 UNITS/ML insulin pen 20 units subcut .HS ibuprofen 800 MG tablet 800 mg PO Q8H PRN (Reason: Pain 1-10 Or Fever) loperamide [Imodium A-D] 2 mg capsule 2 mg PO Q4H PRN (Reason: loose stool) Qty: 10 0RF Rx Instructions: administer after each loose stool until symptoms controlled; do not exceed 8 mg per 24 hrs Jardiance 25 mg tablet 25 mg PO DAILY lisinopril 20 mg tablet 20 mg PO DAILY (DME) OneTouch Verio test strips Strip 1 strip MISCELLANEOUS DAILY omeprazole 20 mg capsule,delayed release(DR/EC) 20 mg PO BID insulin glargine-yfgn [Semglee(insulin glarg-yfgn)Pen] 100 unit/mL (3 mL) insulin pen 40 unit subcut BID Referrals / Follow Up: Bharat Baird DO [Med Staff - Active Staff, Pulmonary Medicine] - See Referral Note Referral Note: Call next week and set up an appointment to be seen as a new patient at the first available visit Vinicio Wright MD [Primary Care Provider, Internal Medicine] - Within 2 Weeks Disposition Disposition (needs filled in before D/C Order can be placed): Home, Self Care Charges/Coding Visit Charges Inpatient E&M: 82352 Disch Hosp >30min
--- OUTSIDE RECORDS SUMMARY | 2025-10-11 13:34 | XMS RPT_ITS | CCD ---
Author Organization [facility] ion Partnership [facility] Care Team Providers Care Pecan Cleaner Name Role Phone Americo Borrego MD Unavailable Americo Borrego MD Primary Care Provider Americo Borrego MD Unavailable Americo Borrego MD Primary Care Provider Navdeep POCKETBOOK MAKER.Malika BORRERO Unavailable Luther POCKETBOOK MAKER.Dean BORRERO Unavailable AMERICO BORREGO Attending Unavailable AMERICO [...] by mouth every 8 hours as needed. [id number] actuat albuterol 0.09 mg/actuat metered dose [...] Comment on above: [facility] at [facility]. azithromycin 250 mg [...] on above: Take 2 tablets by [facility] once daily for 1 day, THEN 1 [...] Comment on above: Take 1 tablet by [facility] once daily. omeprazole 20 mg delayed release oral capsule (20 sources) Proton Pump Inhibitor Start: 2 End: take 1 capsule by mouth twice daily before mealtime omeprazole (PRILOSEC) 20 mg capsule Take 1 capsule by mouth two times a day. 1/2 hr before meal. 60 capsule 09/28/2024 Active Start: 05-29-2021 take 1 capsule by [facility] twice daily before mealtime omeprazole (PRILOSEC) 20 mg capsule Take 1 capsule by mouth twice daily. 1/2 hr before meal. 60 capsule 11 05/29/2021 Active Start: 08-06-2019 take 1 capsule by [facility] twice daily Start: 08-06-2019 take 20 mg by mouth once daily Omeprazole Active 20 MG PO DAILY August 06, 2019 12:00am Start: 01-03-2016 End: 05-27-2016 take 1 capsule by mouth once daily Omeprazole 20 MG capsule Discontinued 20 mg PO DAILY January 03, 2016 12:00am May 27, 2016 8:18am Comment on above: Take 1 capsule by [facility] twice daily. 1/2 hr before meal. [...] on above: Take 2 tablets by [facility] once daily for 5 days. Take 1 tablet [facility] once daily for 4 days. Take [...] Comment on above: Take 1 tablet [facility] daily with breakfast. doxycycline monohydrate 100 [...] on above: Take 1 capsule by [facility] two times a day for 5 days. [...] 2 diabetes mellitus without complication, 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 computer terminal operator insulin use (HCC) Inject 30 Units subcutaneously [...] 2 diabetes mellitus without complication, unspecified whether computer terminal operator insulin use (HCC) Inject 40 Units subcutaneously [...] Coronary atherosclerosis; Translations: [Atherosclerotic heart disease of [place] coronary artery without angina pectoris] Onset: 4 [...] 09-15-2010 09-15-2010 Episodic Other aftercare (1 source) skilled nursing (current) use of insulin; Translations: [Type 2 [...] Absolute Lymph 2.94 X10 3/uL Normal 0.83-4.51 [facility] Comment on above: Performed By: #### L 100.0100, L500.4050 #### [facility] [address] [place], [address] Absolute Neut 3.6 X10 3/uL Normal 2.0-7.7 [facility] Comment on above: Performed By: #### L 100.0100, L500.4050 #### [facility] [address] [place], [address] Basophils/100 WBC (Bld) 0.8 % Normal 0-1 [facility] Comment on above: Performed By: #### L 100.0100, L500.4050 #### [facility] [address] [place], [address] Eosinophils/100 WBC (Bld) 5.5 % High 0-5 [facility] Comment on above: Performed By: #### L 100.0100, L500.4050 #### [facility] [address] [place], [address] Erythrocyte distribution width (RBC) [Ratio] 12.5 % Normal 11.6-14.6 [facility] Comment on above: Performed By: #### L 100.0100, L500.4050 #### [facility] [address] [place], [address] Hematocrit (Bld) [Volume fraction] 47.3 % Normal 40-54 [facility] Comment on above: Performed By: #### L 100.0100, L500.4050 #### [facility] [address] [place], [address] Hemoglobin (Bld) [Mass/Vol] 16.3 g/dL Normal 13.0-16.5 [facility] Comment on above: Performed By: #### L 100.0100, L500.4050 #### [facility] [address] [place], [address] IG% 0.400 Normal 0.0-0.9 [facility] Comment on above: Result Comment: IG% - Immature Granulocytes (promyelocytes, myelocytes and metamyelocytes) > 1% indicates that a LEFT SHIFT is Present. Performed By: #### L 100.0100, L500.4050 #### [facility] [address] [place], [address] Lymphocytes/100 WBC (Bld) 39.5 % Normal 19-41 [facility] Comment on above: Performed By: #### L 100.0100, L500.4050 #### [facility] [address] [place], [address] MCH (RBC) [Entitic mass] 28.3 pg Normal 27.0-32.0 [facility] Comment on above: Performed By: #### L 100.0100, L500.4050 #### [facility] [address] [place], [address] MCHC (RBC) [Mass/Vol] 34.5 g/dL Normal 32-36 [facility] Comment on above: Performed By: #### L 100.0100, L500.4050 #### [facility] [address] [place], [address] MCV (RBC) [Entitic vol] 82.3 fL Normal 80-94 [facility] Comment on above: Performed By: #### L 100.0100, L500.4050 #### [facility] [address] [place], [address] Monocytes/100 WBC (Bld) 6.0 % Normal 0-10 [facility] Comment on above: Performed By: #### L 100.0100, L500.4050 #### [facility] [address] [place], [address] Neutrophils/100 WBC (Bld) 47.8 % Normal 47-70 [facility] Comment on above: Performed By: #### L 100.0100, L500.4050 #### [facility] [address] [place], [address] Nucleated RBC (Bld) [#/Vol] 0 10*3/uL Normal 0-5 [facility] Comment on above: Performed By: #### L 100.0100, L500.4050 #### [facility] [address] [place], [address] Platelet mean volume (Bld) [Entitic vol] 10.9 fL Normal 6.2-12.0 [facility] Comment on above: Performed By: #### L 100.0100, L500.4050 #### [facility] [address] [place], [address] Platelets (Bld) [#/Vol] 120 10*3/uL Low 150-450 [facility] Comment on above: Performed By: #### L 100.0100, L500.4050 #### [facility] [address] [place], [address] RBC (Bld) [#/Vol] 5.75 10*6/uL Normal 4.6-6.2 [facility] Comment on above: Performed By: #### L 100.0100, L500.4050 #### [facility] [address] [place], [address] RDW SD 37.4 fl Normal 35.1-43.9 [facility] Comment on above: Performed By: #### L 100.0100, L500.4050 #### [facility] [address] [place], [address] WBC (Bld) [#/Vol] 7.5 10*3/uL Normal 4.4-11.0 [facility] Comment on above: Performed By: #### L 100.0100, L500.4050 #### [facility] [address] [place], [address] Chest PA and Lateralon 08-18 Chest PA and Lateral [facility] Imaging Services [address] [place] [address] Chest PA and Lateral MR#: [id number] Acct: [id number] Name: ELIEL SOUZA Rep #: [id number] : 1970 M 55 From: Vikas Mcdonald MD PCP: Dr. Americo Borrego MD Status: DEP ER Study: Chest PA and Lateral Date of Exam: 08/18/25 Exam# [id number] Ordering Dr: Sameer Whiteside MD PROCEDURE: CHEST PA AND LATERAL 08/18/2025 REASON FOR EXAM: PRODUCTIVE COUGH, HISTORY OF COPD TECHNIQUE: Procedure Code: RADCXR Modality: DX Procedure: CHEST PA AND LATERAL COMPARISON: 07/06/2025. FINDINGS: The lungs are clear. The cardiomediastinal silhouette appears unremarkable. No acute osseous abnormality. RAD/Chest PA and Lateral IMPRESSION: As above. Reading Location: [id number] CC: Dr. Americo Borrego MD; Dr. Sameer Whiteside MD Engineering Psychologist: Signed Normal [facility] Comprehensive Metabolic Prof ilon 08-18-2025 Albumin [Mass/Vol] 4.2 g/dL Normal 3.5-5.0 [facility] Comment on above: Performed By: #### L 100.0100, L500.4050 #### [facility] [address] [place], [address] Albumin/Globulin [Mass ratio] 1.5 {ratio} Normal 0.9-2.4 [facility] Comment on above: Performed By: #### L 100.0100, L500.4050 #### [facility] [address] [place], [address] ALK PHOS 93 U/L Normal 40-129 [facility] Comment on above: Performed By: #### L 100.0100, L500.4050 #### [facility] [address] [place], [address] ALT [Catalytic activity/Vol] 31 U/L Normal <=46 [facility] Comment on above: Performed By: #### L 100.0100, L500.4050 #### [facility] [address] [place], [address] AST [Catalytic activity/Vol] 28 U/L Normal <=37 [facility] Comment on above: Performed By: #### L 100.0100, L500.4050 #### [facility] [address] [place], [address] Bilirubin [Mass/Vol] 0.50 mg/dL Normal 0.00-1.30 [facility] Comment on above: Performed By: #### L 100.0100, L500.4050 #### [facility] [address] [place], [address] BUN/CRE 32.7 RATIO High 10-20 [facility] Comment on above: Performed By: #### L 100.0100, L500.4050 #### [facility] [address] [place], [address] Calcium [Mass/Vol] 9.5 mg/dL Normal 7.6-11.0 [facility] Comment on above: Performed By: #### L 100.0100, L500.4050 #### [facility] [address] [place], [address] Chloride [Moles/Vol] 104 mmol/L Normal 98-108 [facility] Comment on above: Performed By: #### L 100.0100, L500.4050 #### [facility] [address] [place], [address] CO2 [Moles/Vol] 19.8 mmol/L Low 21.0-32.0 [facility] Comment on above: Performed By: #### L 100.0100, L500.4050 #### [facility] [address] [place], [address] Creatinine [Mass/Vol] 0.70 mg/dL Normal 0.70-1.20 [facility] Comment on above: Performed By: #### L 100.0100, L500.4050 #### [facility] [address] [place], [address] ECRCL 154.00 ml/min Normal 50-250 [facility] Comment on above: Performed By: #### L 100.0100, L500.4050 #### [facility] [address] [place], [address] GAP 14 Normal 5-15 [facility] Comment on above: Performed By: #### L 100.0100, L500.4050 #### [facility] [address] [place], [address] GFR/1.73 sq M.predicted among non-blacks MDRD (S/P/Bld) [Vol rate/Area] 108 mL/min/{1.73_m2} Normal >60 [facility] Comment on above: Result Comment: mL/m in/1.73m2 CKD-EPI Creatinine Equation (2020) Performed By: #### L 100.0100, L500.4050 #### [facility] [address] [place], [address] Globulin (S) [Mass/Vol] 2.9 g/dL Normal 2.2-4.2 [facility] Comment on above: Performed By: #### L 100.0100, L500.4050 #### [facility] [address] [place], [address] Glucose [Mass/Vol] 216 mg/dL High 70-99 [facility] Comment on above: Performed By: #### L 100.0100, L500.4050 #### [facility] [address] [place], [address] Potassium [Moles/Vol] 3.9 mmol/L Normal 3.3-5.1 [facility] Comment on above: Performed By: #### L 100.0100, L500.4050 #### [facility] [address] [place], [address] Sodium [Moles/Vol] 138 mmol/L Normal 133-145 [facility] Comment on above: Performed By: #### L 100.0100, L500.4050 #### [facility] [address] [place], [address] T PROT 7.0 g/dL Normal 5.9-8.4 [facility] Comment on above: Performed By: #### L 100.0100, L500.4050 #### [facility] [address] [place], [address] Urea nitrogen [Mass/Vol] 23 mg/dL High 4-19 [facility] Comment on above: Performed By: #### L 100.0100, L500.4050 #### [facility] [address] [place], [address] Emergency Department Summary on 08-18-2025 Emergency Department Summary [facility] Medical Records Department [address] [place] [address] Emergency Department Summary 08/18/25 MR#: [id number] Acct: [id number] Name: ELIEL SOUZA Rep #: [id number] : 1970 55 From: Sameer Whiteside MD [...] or change (more content not included)... Normal [facility] 12 Lead EKGon 07-06-2025 12 Lead EKG [facility] Cardiovascular Services [address] [place] [address] 12 Lead EKG 07/06/25 1550 MR#: [id number] Acct: [id number] Name: ELIEL SOUZA Rep #: [id number] : 1970 55 From: Aneudy Mathew MD [...] Normal ECG Confirmed by ANEUDY MATHEW MD ([id number]), acquisitions editor TANESHA ROJO ([id number]) on 07/08/2025 8:28:35 AM Referred By: Confirmed By: ANEUDY MATHEW MD 07/08/25 0828 Date Aneudy Mathew MD CC: Dr. Melissa Holly DO; Dr. Americo Borrego MD Signed Normal [facility] Chest PA and Lateralon 07-06 Chest PA and Lateral [facility] Imaging Services [address] [place], [place] [address] Chest PA and Lateral MR#: [id number] Acct: [id number] Name: ELIEL SOUZA Rep #: [id number] : 1970 M 55 From: Maged Archuleta MD PCP: Dr. Americo Borrego MD Status: REG ER Study: Chest PA and Lateral Date of Exam: 07/06/25 Exam# [id number] Ordering Dr: Melissa Holly DO PROCEDURE: CHEST [...] - Other findings discussed above. Reading Location: [id number] CC: Dr. Melissa Holly DO; Dr. Americo Borrego MD Engineering Psychologist: Signed [facility] Electrocardiogram reportOrde red By: Aneudy Mathew on 07-06-2025 EKG study [facility] Cardiovascular Services [address] [place] [address] 12 Lead EKG 07/06/25 1550 MR#: [id number] Acct: [id number] Name: ELIEL SOUZA Rep #:[id number] : 1970 55 From: Aneudy Mathew MD [...] Normal ECG Confirmed by WILLIAMS MIRANDA, ANEUDY ([id number]), acquisitions editor TANESHA ROJO ([id number]) on 07/08/2025 8:28:35 AM Referred By: Confirmed By: ANEUDY MATHEW MD 07/08/25 0828 Date _ Aneudy Mathew MD CC: Dr. Melissa Holly DO; Dr. Americo Borrego MD ~ Signed [facility] Other Emergency Department Summary on 07-06-2025 Emergency Department Summary [facility] Medical Records Department [address] [place] [address] Emergency Department Summary 07/06/25 MR#: [id number] Acct: [id number] Name: ELIEL SOUZA Rep #: [id number] : 1970 55 From: Melissa Holly DO [...] or concerns per at this time. [facility] Medical History Diverticulitis Femur fracture Rib [...] Depth Norm (more content not included)... Normal [facility] CNOVon 04-12-2025 [facility] Office Visit (FAMPWS) ELIEL SOUZA ([id number]) 1970 M Date Time Provider Department 04/12/25 [...] and Jardiance 25 mg daily. [facility] HTN: Denies checking BP at [...] tx as needed. Not following with any mask designer's. Does get Shortness of Breath if he [...] HISTORY Diagnosis Date CAD (coronary artery disease), [place] coronary artery 2014 No PCI indicated. no die out worker needed Closed fracture of femur ([facility]) 11/2010 Depressive disorder, not elsewhere classified Diabetes mellitus type 2 in obese DVT of lower extremity (deep venous thrombosis) ([facility]) 11/2010 left Esophageal reflux Essential hypertension CATY (obstructive sleep apnea) CPAP needs another sleep study machine set too high Pelvic fracture ([facility]) Seasonal allergic rhinitis Unspecified asthma(493.90) Diagnosed in 20s. Previous Surgical History PAST SURGICAL HISTORY Procedure Laterality Date COLONOSCOPY FLX DX W/COLLJ SPEC WHEN PFRMD 11/04/10 Normal colon COLONOSCOPY FLX DX W/COLLJ SPEC WHEN PFRMD 01/21/16 few diverticula EGD TRANSORAL BIOPSY SINGLE/MULTIPLE 11/04/10 duodenitis EGD TRANSORAL BIOPSY SINGLE/MULTIPLE 01/21/16 minimal gastritis EXC TUMOR [facility],PERCUTANEOUS 2013 Cardiac cath, [...] day. insul (more content not included)... Normal [facility] Comprehensive metabolic 2000 panelon 04-06-2025 Albumin [Mass/Vol] 4.4 g/dL Normal 3.9-4.9 [facility] Comment on above: Order Comment: Speci men Type: BLOOD SPECIMENOrdering Facility: [facility] Address: [address] [id number] Performed By: #### 2 4331-1, ####[facility] LABCLIA [id number] [place] [address] [place] ALP [Catalytic activity/Vol] 106 U/L Normal 38-113 [facility] Comment on above: Order Comment: Speci men Type: BLOOD SPECIMENOrdering Facility: [facility] Address: [address] [id number] Performed By: #### 2 4331-1, ####[facility] LABCLIA [id number] [address] [address] [place] ALT [Catalytic activity/Vol] 44 U/L Normal 10-54 [facility] Comment on above: Order Comment: Speci men Type: BLOOD SPECIMENOrdering Facility: [facility] Address: [address] [place] [address] Performed By: #### 2 4331-1, 96263-3 ####[facility] LABCLIA [id number] [address] [place] [address] [place] Anion gap [Moles/Vol] 15 mmol/L Normal 8-15 [facility] Comment on above: Order Comment: Speci men Type: BLOOD SPECIMENOrdering Facility: [facility] Address: [address] [place], [place] [address] Performed By: #### 2 4331-1, 73156-6 ####[facility] LABCLIA [id number] [address] [address] [place] AST [Catalytic activity/Vol] 38 U/L Normal 14-40 [facility] Comment on above: Order Comment: Speci men Type: BLOOD SPECIMENOrdering Facility: [facility] Address: [address] [place], [place] [address] Performed By: #### 2 4331-1, ####[facility] LABCLIA [id number] [address] [address] [place] Bilirubin [Mass/Vol] 0.7 mg/dL Normal 0.2-1.3 [facility] Comment on above: Order Comment: Speci men Type: BLOOD SPECIMENOrdering Facility: [facility] Address: [address] [place] [address] Performed By: #### 2 4331-1, 74645-2 ####[facility] LABCLIA [id number] [address] [address] [place] Calcium [Mass/Vol] 10.1 mg/dL Normal 8.5-10.2 [facility] Comment on above: Order Comment: Speci men Type: BLOOD SPECIMENOrdering Facility: [facility] Address: [address] [place] [address] Performed By: #### 2 4331-1, 24216-3 ####[facility] LABCLIA [id number] [address] [address] [place] Chloride [Moles/Vol] 99 mmol/L Normal 98-107 [facility] Comment on above: Order Comment: Speci men Type: BLOOD SPECIMENOrdering Facility: [facility] Address: [address] [place] [address] Performed By: #### 2 4331-1, 24367-6 ####[facility] LABIA [id number] [place] [id number] [place] CO2 [Moles/Vol] 20 mmol/L Low 22-30 [facility] Comment on above: Order Comment: Speci men Type: BLOOD SPECIMENOrdering Facility: [facility] Address: [address] [place] [address] Performed By: #### 2 4331-1, 05419-0 ####[facility] LABCLIA [id number] [address] [address] [place] Creatinine [Mass/Vol] 0.60 mg/dL Low 0.73-1.22 [facility] Comment on above: Order Comment: Speci men Type: BLOOD SPECIMENOrdering Facility: [facility] Address: [address] [place] [address] Performed By: #### 2 4331-1, 72861-6 ####[facility] LABIA [id number] [address] [address] [place] Creatinine and Glomerular filtration rate.predicted panel (S/P/Bld) 113 mL/min/1.73m??? Normal >=60 [facility] Comment on above: Order Comment: Speci men Type: BLOOD SPECIMENOrdering Facility: [facility] Address: [address] [place] [address] Result Comment: Tia mated Glomerular Filtration Rate [...] actual GFR. Performed By: #### 2 4331-, ####[facility] LABCLIA [id number] [address] [address] [place] Glucose [Mass/Vol] 245 mg/dL High 74-99 [facility] Comment on above: Order Comment: Osmin lopez Type: BLOOD SPECIMENOrdering Facility: [facility] Address: [address] [place] [address] Result Comment: The [place] Diabetes Association (ADA) provides guidance for cutoff [...] Standards of Medical Care in Diabetes 2016, [place] Diabetes Association. Diabetes Care. 2016.39(Suppl 1). Performed By: #### 2 433-, ####[facility] LABCLIA [id number] [address] [address] [place] Potassium [Moles/Vol] 5.1 mmol/L Normal 3.7-5.1 [facility] Comment on above: Order Comment: Osmin lopez Type: BLOOD SPECIMENOrdering Facility: [facility] Address: [address] [place] [address] Performed By: #### 2 433-, ####[facility] LABCLIA [id number] [address] [address] [place] Protein [Mass/Vol] 8.0 g/dL Normal 6.3-8.0 [facility] Comment on above: Order Comment: Speci men Type: BLOOD SPECIMENOrdering Facility: [facility] Address: [address] [place] [address] Performed By: #### 2 4331-1, ####[facility] LABCLIA [id number] [facility] [address] [address] [place] Sodium [Moles/Vol] 134 mmol/L Low 136-144 [facility] Comment on above: Order Comment: Speci men Type: BLOOD SPECIMENOrdering Facility: [facility] Address: [address] [place] [address] Performed By: #### 2 4331-1, ####[facility] LABCLIA [id number] [place] [address] [place] Urea nitrogen [Mass/Vol] 24 mg/dL Normal 9-24 [facility] Comment on above: Order Comment: Speci men Type: BLOOD SPECIMENOrdering Facility: [facility] Address: [address] [place] [address] Performed By: #### 2 4331-1, ####[facility] LABCLIA [id number] [facility] [address] [place] [address] [place] HbA1c (Bld)on 04-06-2025 Average glucose Estimated from glycated hemoglobin (Bld) [Mass/Vol] 174 mg/dL Normal [facility] Comment on above: Order Comment: Speci men Type: BLOOD SPECIMENOrdering Facility: [facility] Address: [address] [place] [address] Result Comment: eAG: (Estimated average glucose) is a calculated value from HgbA1c and is medicare sales representative of the average blood glucose level in the last 2-3 month period. Performed By: #### 5 5454-3 ####[facility] [facility] LABCLIA [id number] [address] [place] [address] [place] HbA1c (Bld) [Mass fraction] 7.7 % High 4.3-5.6 [facility] Comment on above: Order Comment: Osmin lopez Type: BLOOD SPECIMENOrdering Facility: [facility] Address: [address] [place] [address] Result Comment: [place] Diabetes Association guidelines indicate that patients with HgbA1c in the range 5.7-6.4% are at increased risk for development of diabetes, and intervention by lifestyle modification may be beneficial. HgbA1c greater or equal to 6.5% is considered diagnostic of diabetes. Performed By: #### 5 5454-3 ####[facility] LABCLIA [id number] [place] [address] [facility] Lipid 1996 panelon 5 Cholesterol [Mass/Vol] 201 mg/dL High <200 [facility] Comment on above: Order Comment: Osmin lopez Type: BLOOD SPECIMENOrdering Facility: [facility] Address: [address] [place] [address] Result Comment: <200 mg/dL, Desirable 200-239 mg/dL, Borderline high >239 mg/dL, High Performed By: #### 2 4331-1, 13428-0 ####[facility] LABCLIA [id number] [address] [place] [address] [place] [facility] Cholesterol in HDL [Mass/Vol] 29 mg/dL Low >39 [facility] Comment on above: Order Comment: Osmin lopez Type: BLOOD SPECIMENOrdering Facility: [facility] Address: [address] [place] [address] Result Comment: 40-5 9 mg/dL, Acceptable >59 mg/dL, High: Negative risk factor for coronary heart disease <40 mg/dL, Low: Positive risk factor for coronary heart disease Performed By: #### 2 4331-1, 84719-2 ####[facility] LABCLIA [id number] [address] [place] [address] [facility] Cholesterol in LDL [Mass/Vol] 116 mg/dL High <100 [facility] Comment on above: Order Comment: Osmin men Type: BLOOD SPECIMENOrdering Facility: [facility] Address: [address] [place] [address] Result Comment: <100 mg/dL, Optimal 100-129 mg/dL, Near optimal/above optimal 130-159 mg/dL, Borderline high 160-189 mg/dL, High >189 mg/dL, Very high Secondary prevention optimal LDL Cholesterol levels are recommended to be <70 mg/dL LDL cholesterol is calculated using the Baig-NIH equation. Performed By: #### 2 433-, ####[facility] LABCLIA [id number] [address] [address] [place] Cholesterol in LDL/Cholesterol in HDL [Mass ratio] 4.00 {ratio} High <2.54 [facility] Comment on above: Order Comment: Osmin men Type: BLOOD SPECIMENOrdering Facility: [facility] Address: [address] [place] [address] Result Comment: Refe rence: 1. National Cholesterol Education Program ATP III Guideline At-A-Glance Quick Desk Reference: National Heart, Lung, and Blood [place]. National Institutes of Health. 2001: NIH Publication No. 01-3305. 2. An International Atherosclerosis Society position paper: global recommendations for the management of dyslipidemia: executive summary, Atherosclerosis. 2014: 232(2):410-413. Performed By: #### 2 433-, ####[facility] LABCLIA [id number] [address] [address] [place] Cholesterol in VLDL [Mass/Vol] 55 mg/dL High <30 [facility] Comment on above: Order Comment: Manni john Type: BLOOD SPECIMENOrdering Facility: [facility] Address: [address] [place] [address] Performed By: #### 2 433-, ####[facility] LABCLIA [id number] [address] [address] [place] Cholesterol non HDL [Mass/Vol] 172 mg/dL High <130 [facility] Comment on above: Order Comment: Speci men Type: BLOOD SPECIMENOrdering Facility: [facility] Address: [address] [place] [address] Result Comment: <130 mg/dL, Optimal 130-159 mg/dL, Near optimal/above optimal 160-189 mg/dL, Borderline high 190-219 mg/dL, High >219 mg/dL, Very high Secondary prevention optimal non HDL Cholesterol levels are recommended to be <100 mg/dL Performed By: #### 2 4331-1, 33983-0 ####[facility] LABCLIA [id number] [place] [address] [place] Cholesterol.total/Cholest domenic in HDL [Mass ratio] 6.93 {ratio} High <5.10 [facility] Comment on above: Order Comment: Speci men Type: BLOOD SPECIMENOrdering Facility: [facility] Address: [address] [place] [address] Performed By: #### 2 433-1, 18436-4 ####[facility] LABCLIA [id number] [place] [address] [place] FASTING TIME 10 hrs Normal [facility] Comment on above: Order Comment: Speci men Type: BLOOD SPECIMENOrdering Facility: [facility] Address: [address] [place] [address] Performed By: #### 2 4331-1, 68708-4 ####[facility] LABCLIA [id number] [place] [address] [place] Triglyceride [Mass/Vol] 318 mg/dL High <150 [facility] Comment on above: Order Comment: Speci men Type: BLOOD SPECIMENOrdering Facility: [facility] Address: [address] [place] [address] Result Comment: <150 mg/dL, Normal 150-199 mg/dL, Borderline high 200-499 mg/dL, High >499 mg/dL, Very high Performed By: #### 2 433-1, 17288-6 ####[facility] LABCLIA [id number] JIGAR ROSALES [address] [address] [place] CNOVon 01-08-2025 CNOV Office Visit (FAMPWS) ELIEL SOUZA ([id number]) 1970 M Date Time Provider Department 01/08/25 11:00 AM [facility] During your visit today, we recorded the [...] HISTORY Diagnosis Date CAD (coronary artery disease), [place] coronary artery 2014 No PCI indicated. no die out worker needed Closed fracture of femur ([facility]) 11/2010 Depressive disorder, not elsewhere classified Diabetes mellitus type 2 in obese DVT of lower extremity (deep venous thrombosis) ([facility]) 11/2010 left Esophageal reflux Essential hypertension CATY (obstructive sleep apnea) CPAP needs another sleep study machine set too high Pelvic fracture ([facility]) Seasonal allergic rhinitis Unspecified asthma(493.90) [...] daily. Take (more content not included)... Normal [facility] CBC W Auto Differential pane l (Bld)on 12-22-2024 Basophils (Bld) [#/Vol] 0.07 10*3/uL Normal <0.11 [facility] Comment on above: Order Comment: Speci men Type: BLOOD SPECIMENOrdering Facility: [facility] Address: [address] [place] [address] Performed By: #### 5 7021-8 ####[facility] LABCLIA [id number] [place] [address] [place] Basophils/100 WBC (Bld) 0.9 % Normal [facility] Comment on above: Order Comment: Speci men Type: BLOOD SPECIMENOrdering Facility: [facility] Address: [address] [place] [address] Performed By: #### 5 7021-8 ####[facility] LABCLIA [id number] [place] [address] [place] Differential cell count method Nom (Bld) Auto Normal [facility] Comment on above: Order Comment: Speci men Type: BLOOD SPECIMENOrdering Facility: [facility] Address: [address] [place] [address] Performed By: #### 5 7021-8 ####[facility] LABCLIA [id number] [address], [place] [address] [place] Eosinophils (Bld) [#/Vol] 0.40 10*3/uL Normal <0.46 [facility] Comment on above: Order Comment: Speci men Type: BLOOD SPECIMENOrdering Facility: [facility] Address: [address] [place] [address] Performed By: #### 5 7021-8 ####[facility] LABCLIA [id number] [address], [place] [address] [place] Eosinophils/100 WBC (Bld) 5.3 % Normal [facility] Comment on above: Order Comment: Speci men Type: BLOOD SPECIMENOrdering Facility: [facility] Address: [address] [place] [address] Performed By: #### 5 7021-8 ####[facility] LABCLIA [id number] [address], [place] [address] [place] Erythrocyte distribution width (RBC) [Ratio] 13.2 % Normal 11.5-15.0 [facility] Comment on above: Order Comment: Speci men Type: BLOOD SPECIMENOrdering Facility: [facility] Address: [address] [place] [address] Performed By: #### 5 7021-8 ####[facility] LABCLIA [id number] [address], [place] [address] [place] Hematocrit (Bld) [Volume fraction] 50.0 % Normal 39.0-51.0 [facility] Comment on above: Order Comment: Speci men Type: BLOOD SPECIMENOrdering Facility: [facility] Address: [address] [place] [address] Performed By: #### 5 7021-8 ####[facility] LABCLIA [id number] [address], [facility] [address] [address] [place] Hemoglobin (Bld) [Mass/Vol] 16.7 g/dL Normal 13.0-17.0 [facility] Comment on above: Order Comment: Speci men Type: BLOOD SPECIMENOrdering Facility: [facility] Address: [address] [place] [address] Performed By: #### 5 7021-8 ####[facility] LABCLIA [id number] [place] [address] [place] Immature granulocytes (Bld) [#/Vol] 0.05 10*3/uL Normal <0.10 [facility] Comment on above: Order Comment: Speci men Type: BLOOD SPECIMENOrdering Facility: [facility] Address: [address] [place] [address] Performed By: #### 5 7021-8 ####[facility] LABCLIA [id number] [place] [address] [place] Immature granulocytes/100 WBC (Bld) 0.7 % Normal [facility] Comment on above: Order Comment: Speci men Type: BLOOD SPECIMENOrdering Facility: [facility] Address: [address] [place] [address] Performed By: #### 5 7021-8 ####[facility] LABCLIA [id number] [place] [address] [place] Lymphocytes (Bld) [#/Vol] 2.93 10*3/uL Normal 1.00-4.0 0 [facility] Comment on above: Order Comment: Speci men Type: BLOOD SPECIMENOrdering Facility: [facility] Address: [address] [place] [address] Performed By: #### 5 7021-8 ####[facility] LABCLIA [id number] [place] [address] [place] Lymphocytes/100 WBC (Bld) 39.2 % Normal [facility] Comment on above: Order Comment: Speci men Type: BLOOD SPECIMENOrdering Facility: [facility] Address: [address] [place] [address] Performed By: #### 5 7021-8 ####[facility] LABIA [id number] [address] STATES [facility] MCH (RBC) [Entitic mass] 28.9 pg Normal 26.0-34.0 [facility] Comment on above: Order Comment: Speci men Type: BLOOD SPECIMENOrdering Facility: [facility] Address: [address] [place] [address] Performed By: #### 5 7021-8 ####[facility] LABIA [id number] [place] [address] [place] MCHC (RBC) [Mass/Vol] 33.4 g/dL Normal 30.5-36.0 [facility] Comment on above: Order Comment: Speci men Type: BLOOD SPECIMENOrdering Facility: [facility] Address: [address] [place] [address] Performed By: #### 5 7021-8 ####[facility] [id number] [place] [address] [place] MCV (RBC) [Entitic vol] 86.7 fL Normal 80.0-100.0 [facility] Comment on above: Order Comment: Speci men Type: BLOOD SPECIMENOrdering Facility: [facility] Address: [address] [place] [address] Performed By: #### 5 7021-8 ####[facility] LABIA [id number] [place] [address] [place] Monocytes (Bld) [#/Vol] 0.46 10*3/uL Normal <0.87 [facility] Comment on above: Order Comment: Speci men Type: BLOOD SPECIMENOrdering Facility: [facility] Address: [address] [place] [address] Performed By: #### 5 7021-8 ####[facility] LABIA [id number] [address] [place] [address] [place] Monocytes/100 WBC (Bld) 6.1 % Normal [facility] Comment on above: Order Comment: Speci men Type: BLOOD SPECIMENOrdering Facility: [facility] Address: [address] [place] [address] Performed By: #### 5 7021-8 ####[facility] LABCLIA [id number] [address], [place] [address] [place] Neutrophils (Bld) [#/Vol] 3.57 10*3/uL Normal 1.45-7.5 0 [facility] Comment on above: Order Comment: Speci men Type: BLOOD SPECIMENOrdering Facility: [facility] Address: [address] [place] [address] Performed By: #### 5 7021-8 ####[facility] LABCLIA [id number] [place] [address] [place] Neutrophils/100 WBC (Bld) 47.8 % Normal [facility] Comment on above: Order Comment: Speci men Type: BLOOD SPECIMENOrdering Facility: [facility] Address: [address] [place] [address] Performed By: #### 5 7021-8 ####[facility] LABCLIA [id number] [place] [address] [place] Nucleated RBC (Bld) [#/Vol] 10*3/uL Normal <0.01 [facility] Comment on above: Order Comment: Speci men Type: BLOOD SPECIMENOrdering Facility: [facility] Address: [address] [place] [address] Performed By: #### 5 7021-8 ####[facility] LABCLIA [id number] [place] [address] [place] Nucleated RBC/100 WBC (Bld) [Ratio] 0.0 /100 WBC Normal [facility] Comment on above: Order Comment: Speci men Type: BLOOD SPECIMENOrdering Facility: [facility] Address: [address] [place] [address] Performed By: #### 5 7021-8 ####[facility] LABCLIA [id number] [place] [address] [place] Platelet mean volume (Bld) [Entitic vol] 12.2 fL Normal 9.0-12.7 [facility] Comment on above: Order Comment: Speci men Type: BLOOD SPECIMENOrdering Facility: [facility] Address: [address] [place] [address] Performed By: #### 5 7021-8 ####[facility] LABIA [id number] [place] [address] [place] Platelets (Bld) [#/Vol] 135 10*3/uL Low 150-400 [facility] Comment on above: Order Comment: Speci men Type: BLOOD SPECIMENOrdering Facility: [facility] Address: [address] [place] [address] Performed By: #### 5 7021-8 ####[facility] LABIA [id number] [place] [address] [place] RBC (Bld) [#/Vol] 5.77 10*6/uL Normal 4.20-6.00 [facility] Comment on above: Order Comment: Speci men Type: BLOOD SPECIMENOrdering Facility: [facility] Address: [address] [place] [address] Performed By: #### 5 7021-8 ####[facility] LABCLIA [id number] [place] [address] [place] WBC (Bld) [#/Vol] 7.48 10*3/uL Normal 3.70-11.00 [facility] Comment on above: Order Comment: Speci men Type: BLOOD SPECIMENOrdering Facility: [facility] Address: [address] [place] [address] Performed By: #### 5 7021-8 ####[facility] LABCLIA [id number] [facility] [address] [address] [place] Cholesterol in LDL Direct as say [Mass/Vol]on 12-22-2024 Cholesterol in LDL [Mass/Vol] 65 mg/dL Normal <100 [facility] Comment on above: Order Comment: Speci men Type: BLOOD SPECIMENOrdering Facility: [facility] Address: [address] [place] [address] Result Comment: <100 mg/dL, Optimal 100-129 mg/dL, Near optimal/above optimal 130-159 mg/dL, Borderline high 160-189 mg/dL, High >189 mg/dL, Very high Secondary prevention optimal LDL Cholesterol levels are recommended to be < 70 mg/dL Performed By: #### 2 4331-1, 81263-9, ####[facility] LABCLIA [id number] [address] [address] [place] Cholesterol in VLDL [Mass/Vol] 62 mg/dL High <30 [facility] Comment on above: Order Comment: Speci men Type: BLOOD SPECIMENOrdering Facility: [facility] Address: [address] [place] [address] Performed By: #### 2 4331-1, 09695-1, ####[facility] LABCLIA [id number] [facility] [address] [address] [place] Comprehensive metabolic 2000 panelon 12-22-2024 Albumin [Mass/Vol] 4.0 g/dL Normal 3.9-4.9 [facility] Comment on above: Order Comment: Speci men Type: BLOOD SPECIMENOrdering Facility: [facility] Address: [address] [place] [address] Performed By: #### 2 4331-1, , ####[facility] LABCLIA [id number] [address] [address] [place] ALP [Catalytic activity/Vol] 109 U/L Normal 38-113 [facility] Comment on above: Order Comment: Speci men Type: BLOOD SPECIMENOrdering Facility: [facility] Address: [address] [place], [place] [address] Performed By: #### 2 4331-1, , ####[facility] LABCLIA [id number] [address] [address] [place] ALT [Catalytic activity/Vol] 27 U/L Normal 10-54 [facility] Comment on above: Order Comment: Speci men Type: BLOOD SPECIMENOrdering Facility: [facility] Address: [address] [place], [place] [address] Performed By: #### 2 4331-1, , ####[facility] LABCLIA [id number] [place] [address] [place] Anion gap [Moles/Vol] 11 mmol/L Normal 8-15 [facility] Comment on above: Order Comment: Speci men Type: BLOOD SPECIMENOrdering Facility: [facility] Address: [address] [place], [place] [address] Performed By: #### 2 4331-1, , ####[facility] LABIA [id number] [place] [address] [place] AST [Catalytic activity/Vol] 26 U/L Normal 14-40 [facility] Comment on above: Order Comment: Speci men Type: BLOOD SPECIMENOrdering Facility: [facility] Address: [address] [place], [place] [address] Performed By: #### 2 4331-1, , ####[facility] LABCLIA [id number] [address] [address] [place] Bilirubin [Mass/Vol] 0.5 mg/dL Normal 0.2-1.3 [facility] Comment on above: Order Comment: Speci men Type: BLOOD SPECIMENOrdering Facility: [facility] Address: [address] [place], [place] [address] Performed By: #### 2 4331-1, 38803-1, ####[facility] LABCLIA [id number] [address] [address] [place] Calcium [Mass/Vol] 9.7 mg/dL Normal 8.5-10.2 [facility] Comment on above: Order Comment: Speci men Type: BLOOD SPECIMENOrdering Facility: [facility] Address: [address] [place], [place] [address] Performed By: #### 2 4331-1, 83696-7, ####[facility] LABCLIA [id number] [place] [address] [place] Chloride [Moles/Vol] 101 mmol/L Normal 98-107 [facility] Comment on above: Order Comment: Speci men Type: BLOOD SPECIMENOrdering Facility: [facility] Address: [address] [place], [place] [address] Performed By: #### 2 4331-1, , ####[facility] LABIA [id number] [place] [address] [place] CO2 [Moles/Vol] 27 mmol/L Normal 22-30 [facility] Comment on above: Order Comment: Speci men Type: BLOOD SPECIMENOrdering Facility: [facility] Address: [address] [place], [place] [address] Performed By: #### 2 4331-1, 69090-1, ####[facility] LABIA [id number] [address] [address] [place] Creatinine [Mass/Vol] 0.56 mg/dL Low 0.73-1.22 [facility] Comment on above: Order Comment: Speci men Type: BLOOD SPECIMENOrdering Facility: [facility] Address: [address] [place], [place] [address] Performed By: #### 2 4331-1, 25175-2, 87601-8 ####[facility] LABIA [id number] [place] [id number] [place] Creatinine and Glomerular filtration rate.predicted panel (S/P/Bld) 116 mL/min/1.73m??? Normal >=60 [facility] Comment on above: Order Comment: Osmin lopez Type: BLOOD SPECIMENOrdering Facility: [facility] Address: [address] [place] [address] Result Comment: Tia mated Glomerular Filtration Rate [...] actual GFR. Performed By: #### 2 4331-1, 79452-3, 75603-9 ####[facility] LABIA [id number] [place] [address] [place] Glucose [Mass/Vol] 199 mg/dL High 74-99 [facility] Comment on above: Order Comment: Osmin lopez Type: BLOOD SPECIMENOrdering Facility: [facility] Address: [address] [place] [address] Result Comment: The [place] Diabetes Association (ADA) provides guidance for cutoff [...] Standards of Medical Care in Diabetes 2016, [place] Diabetes Association. Diabetes Care. 2016.39(Suppl 1). Performed By: #### 2 4331-1, 84430-6, ####[facility] LABCLIA [id number] [address] [address] [place] Potassium [Moles/Vol] 4.3 mmol/L Normal 3.7-5.1 [facility] Comment on above: Order Comment: Speci men Type: BLOOD SPECIMENOrdering Facility: [facility] Address: [address] [place], [place] [address] Performed By: #### 2 4331-1, 32354-7, ####[facility] LABCLIA [id number] [address] [address] [place] Protein [Mass/Vol] 7.4 g/dL Normal 6.3-8.0 [facility] Comment on above: Order Comment: Speci men Type: BLOOD SPECIMENOrdering Facility: [facility] Address: [address] [place], [place] [address] Performed By: #### 2 4331-1, , ####[facility] LABCLIA [id number] [address] [address] [place] Sodium [Moles/Vol] 139 mmol/L Normal 136-144 [facility] Comment on above: Order Comment: Speci men Type: BLOOD SPECIMENOrdering Facility: [facility] [facility] Address: [address] [place] [address] Performed By: #### 2 4331-1, , ####[facility] LABCLIA [id number] [address] [address] [place] Urea nitrogen [Mass/Vol] 15 mg/dL Normal 9-24 [facility] Comment on above: Order Comment: Speci men Type: BLOOD SPECIMENOrdering Facility: [facility] Address: [address] [place] [address] Performed By: #### 2 4331-1, , ####[facility] LABCLIA [id number] [address] OF [place] HbA1c (Bld)on 12-22-2024 Average glucose Estimated from glycated hemoglobin (Bld) [Mass/Vol] 186 mg/dL Normal [facility] Comment on above: Order Comment: Osmin lopez Type: BLOOD SPECIMENOrdering Facility: [facility] Address: [address] [place] [address] Result Comment: eAG: (Estimated average glucose) is a calculated value from HgbA1c and is medicare sales representative of the average blood glucose level in the last 2-3 month period. Performed By: #### 5 5454-3 ####[facility] LABIA [id number] [address] HbA1c (Bld) [Mass fraction] 8.1 % High 4.3-5.6 [facility] Comment on above: Order Comment: Osmin lopez Type: BLOOD SPECIMENOrdering Facility: [facility] Address: [address] [place] [address] Result Comment: Amer ican Diabetes Association guidelines indicate that patients with HgbA1c in the range 5.7-6.4% are at increased risk for development of diabetes, and intervention by lifestyle modification may be beneficial. HgbA1c greater or equal to 6.5% is considered diagnostic of diabetes. Performed By: #### 5 5454-3 ####[facility] LABIA [id number] [address] OF [facility] Lipid 1996 panelon 5 Cholesterol [Mass/Vol] 154 mg/dL Normal <200 [facility] Comment on above: Order Comment: Osmin lopez Type: BLOOD SPECIMENOrdering Facility: [facility] Address: [address] [place] [address] Result Comment: <200 mg/dL, Desirable 200-239 mg/dL, Borderline high >239 mg/dL, High Performed By: #### 2 4331-1, 54774-3, 75950-1 ####[facility] LABCLIA [id number] [address] [address] [facility] [place] Cholesterol in HDL [Mass/Vol] 27 mg/dL Low >39 [facility] Comment on above: Order Comment: Speci men Type: BLOOD SPECIMENOrdering Facility: [facility] Address: [address] [place] [address] Result Comment: 40-5 9 mg/dL, Acceptable >59 mg/dL, High: Negative risk factor for coronary heart disease <40 mg/dL, Low: Positive risk factor for coronary heart disease Performed By: #### 2 4331-1, 76849-1, 96476-1 ####[facility] LABCLIA [id number] [address] Cholesterol in LDL [Mass/Vol] Normal [facility] Comment on above: Order Comment: Speci men Type: BLOOD SPECIMENOrdering Facility: [facility] Address: [address] [place] [address] Result Comment: Unab le to calculate due to increased Triglycerides. See LDL-Chol, Direct. Performed By: #### 2 4331-1, 54530-8, 53699-6 ####[facility] LABCLIA [id number] [place] [id number] [facility] Cholesterol in LDL/Cholesterol in HDL [Mass ratio] Normal [facility] Comment on above: Order Comment: Speci men Type: BLOOD SPECIMENOrdering Facility: [facility] Address: [address] [place] [address] Result Comment: Unab le to calculate due to elevated Triglycerides. Reference: 1. National Cholesterol Education Program ATP III Guideline At-A-Glance Quick Desk Reference: National Heart, Lung, and Blood [place]. National Institutes of Health. 2001: NIH Publication No. 01-3305. 2. An International Atherosclerosis Society position paper: global recommendations for the management of dyslipidemia: executive summary, Atherosclerosis. 2014: 232(2):410-413. Performed By: #### 2 4331-1, 55820-8, 22178-6 ####[facility] LABCLIA [id number] [address] [place] [address] [place] Cholesterol in VLDL [Mass/Vol] Normal [facility] Comment on above: Order Comment: Speci men Type: BLOOD SPECIMENOrdering Facility: [facility] Address: [address] [place] [id number] Result Comment: Unab le to calculate due to increased Triglycerides. See LDL-Chol, Direct. Performed By: #### 2 4331-1, 97275-6, ####[facility] LABCLIA [id number] [address] [place] [address] [place] Cholesterol non HDL [Mass/Vol] 127 mg/dL Normal <130 [facility] Comment on above: Order Comment: Speci men Type: BLOOD SPECIMENOrdering Facility: [facility] Address: [address] [place] [address] Result Comment: <130 mg/dL, Optimal 130-159 mg/dL, Near optimal/above optimal 160-189 mg/dL, Borderline high 190-219 mg/dL, High >219 mg/dL, Very high Secondary prevention optimal non HDL Cholesterol levels are recommended to be <100 mg/dL Performed By: #### 2 4331-1, 41917-2, ####[facility] LABCLIA [id number] [address] [address] [place] Cholesterol.total/Cholest domenic in HDL [Mass ratio] 5.70 {ratio} High <5.10 [facility] Comment on above: Order Comment: Speci men Type: BLOOD SPECIMENOrdering Facility: [facility] Address: [address] [place] [id number] Performed By: #### 2 4331-1, 32631-5, ####[facility] LABCLIA [id number] [address] [address] [place] FASTING TIME 12 hrs Normal [facility] Comment on above: Order Comment: Speci men Type: BLOOD SPECIMENOrdering Facility: [facility] Address: [address] [place], [place] [address] Performed By: #### 2 4331-1, 40916-9, 63299-7 ####[facility] LABIA [id number] [address] [address] [place] [facility] Triglyceride [Mass/Vol] 594 mg/dL High <150 [facility] Comment on above: Order Comment: Speci men Type: BLOOD SPECIMENOrdering Facility: [facility] Address: [address] [place] [id number] Result Comment: <150 mg/dL, Normal 150-199 mg/dL, Borderline high 200-499 mg/dL, High >499 mg/dL, Very high Performed By: #### 2 4331-1, 49268-1, 22227-3 ####[facility] LABCLIA [id number] [place] [id number] [facility] [place] Javy 12-10-2024 [place] Telephone (ADMWST) ELIEL SOUZA ([id number]) 1970 M Date Time Provider Department 12/10/24 [...] medication that he was requesting? Dean Goldberg APRN.BUILDING SPECIALIST Allergies As of Date: 12/10/2024 (No Known [...] with hyperglycemia, wi* Coronary artery disease involving [place]*07/05/2014 Obstructive sleep apnea treated with BiPAP [...] [D69.6] 03/29/2023 (more content not included)... Normal [facility]OU[facility] ([id number]) 1970 [place] Date Time Provider Department 08/27/24 [facility] During your visit today, we recorded the following information about you: Mary Jane Wade RN 08/27/2024 1:27 PM Signed Phong pharmacist @ [facility] calling to let provider know that [...] with hyperglycemia, wi* Coronary artery disease involving [place]*07/05/2014 Obstructive sleep apnea treated with BiPAP [...] Nicotine use (more content not included)... Normal [facility] CNOVon 08-24-2024 CNOV Office Visit (FAMPWS) GONZALOELIEL ([id number]) 1970 M Date Time Provider Department 08/24/24 [...] does get some anxiety when driving [place] the highways. His chest gets a [...] HISTORY Diagnosis Date CAD (coronary artery disease), [place] coronary artery 2014 No PCI indicated. no die out worker needed Closed fracture of femur ([facility]) 11/2010 Depressive disorder, not elsewhere classified Diabetes mellitus type 2 in obese DVT of lower extremity (deep venous thrombosis) ([facility]) 11/2010 left Esophageal reflux Essential hypertension CATY (obstructive sleep apnea) CPAP needs another sleep study machine set too high Pelvic fracture ([facility]) Seasonal allergic rhinitis Unspecified asthma(493.90) [...] by mouth (more content not included)... Normal [facility] CBC panel Auto (Bld)on 08-11 Erythrocyte distribution width (RBC) [Ratio] 13.7 % Normal 11.5-15.0 [facility] Comment on above: Order Comment: Speci men Type: BLOOD SPECIMENOrdering Facility: [facility] Address: [address] [place] [address] Performed By: #### 5 8410-2 ####[facility] LABIA [id number] [place] [address] [place] Hematocrit (Bld) [Volume fraction] 49.3 % Normal 39.0-51.0 [facility] Comment on above: Order Comment: Speci men Type: BLOOD SPECIMENOrdering Facility: [facility] Address: [address] [place] [address] Performed By: #### 5 8410-2 ####[facility] LABIA [id number] [place] [address] [place] Hemoglobin (Bld) [Mass/Vol] 16.4 g/dL Normal 13.0-17.0 [facility] Comment on above: Order Comment: Speci men Type: BLOOD SPECIMENOrdering Facility: [facility] Address: [address] [place] [address] Performed By: #### 5 8410-2 ####[facility] LABIA [id number] [place] [address] [place] MCH (RBC) [Entitic mass] 27.9 pg Normal 26.0-34.0 [facility] Comment on above: Order Comment: Speci men Type: BLOOD SPECIMENOrdering Facility: [facility] Address: [address] [place] [address] Performed By: #### 5 8410-2 ####[facility] LABIA [id number] [place] [address] [place] MCHC (RBC) [Mass/Vol] 33.3 g/dL Normal 30.5-36.0 [facility] Comment on above: Order Comment: Speci men Type: BLOOD SPECIMENOrdering Facility: [facility] Address: [address] [place] [address] Performed By: #### 5 8410-2 ####[facility] LABCLIA [id number] [place] [address] [place] MCV (RBC) [Entitic vol] 84.0 fL Normal 80.0-100.0 [facility] Comment on above: Order Comment: Speci men Type: BLOOD SPECIMENOrdering Facility: [facility] Address: [address] [place] [address] Performed By: #### 5 8410-2 ####[facility] LABIA [id number] [place] [address] [place] Nucleated RBC (Bld) [#/Vol] 10*3/uL Normal <0.01 [facility] Comment on above: Order Comment: Speci men Type: BLOOD SPECIMENOrdering Facility: [facility] Address: [address] [place] [address] Performed By: #### 5 8410-2 ####[facility] LABIA [id number] [place] [address] [place] Platelet mean volume (Bld) [Entitic vol] 11.9 fL Normal 9.0-12.7 [facility] Comment on above: Order Comment: Speci men Type: BLOOD SPECIMENOrdering Facility: [facility] Address: [address] [place] [address] Performed By: #### 5 8410-2 ####[facility] LABIA [id number] [place] [address] [place] Platelets (Bld) [#/Vol] 156 10*3/uL Normal 150-400 [facility] Comment on above: Order Comment: Speci men Type: BLOOD SPECIMENOrdering Facility: [facility] Address: [address] [place] [address] Performed By: #### 5 8410-2 ####[facility] LABIA [id number] [place] [address] [place] RBC (Bld) [#/Vol] 5.87 10*6/uL Normal 4.20-6.00 [facility] Comment on above: Order Comment: Speci men Type: BLOOD SPECIMENOrdering Facility: [facility] Address: [address] [place] [address] Performed By: #### 5 8410-2 ####[facility] LABCLIA [id number] [place] [address] [place] WBC (Bld) [#/Vol] 6.21 10*3/uL Normal 3.70-11.00 [facility] Comment on above: Order Comment: Speci men Type: BLOOD SPECIMENOrdering Facility: [facility] Address: [address] [place] [address] Performed By: #### 5 8410-2 ####[facility] LABCLIA [id number] [place] [address] [place] Comprehensive metabolic 2000 panelon 08-11-2024 Albumin [Mass/Vol] 4.0 g/dL Normal 3.9-4.9 [facility] Comment on above: Order Comment: Speci men Type: BLOOD SPECIMENOrdering Facility: [facility] Address: [address] [place] [address] Performed By: #### 2 4323-8 ####[facility] LABCLIA [id number] [place] [address] [place] ALP [Catalytic activity/Vol] 110 U/L Normal 38-113 [facility] Comment on above: Order Comment: Speci men Type: BLOOD SPECIMENOrdering Facility: [facility] Address: [address] [place] [address] Performed By: #### 2 4323-8 ####[facility] LABCLIA [id number] [place] [address] [place] ALT [Catalytic activity/Vol] 37 U/L Normal 10-54 [facility] Comment on above: Order Comment: Speci men Type: BLOOD SPECIMENOrdering Facility: [facility] Address: [address] [place] [address] Result Comment: Shankar danni removed prior to analysis. Performed By: #### 2 4323-8 ####[facility] LABCLIA [id number] [place] [address] [place] Anion gap [Moles/Vol] 11 mmol/L Normal 8-15 [facility] Comment on above: Order Comment: Speci men Type: BLOOD SPECIMENOrdering Facility: [facility] Address: [address] [place] [address] Performed By: #### 2 4323-8 ####[facility] LABIA [id number] [place] [address] [place] AST [Catalytic activity/Vol] 48 U/L High 14-40 [facility] Comment on above: Order Comment: Speci men Type: BLOOD SPECIMENOrdering Facility: [facility] Address: [address] [place] [address] Result Comment: Shankar danni removed prior to analysis. Performed By: #### 2 4323-8 ####[facility] LABIA [id number] [place] [address] [place] Bilirubin [Mass/Vol] 0.6 mg/dL Normal 0.2-1.3 [facility] Comment on above: Order Comment: Speci men Type: BLOOD SPECIMENOrdering Facility: [facility] Address: [address] [place] [address] Performed By: #### 2 4323-8 ####[facility] LABIA [id number] [place] [address] [place] Calcium [Mass/Vol] 9.7 mg/dL Normal 8.5-10.2 [facility] Comment on above: Order Comment: Speci men Type: BLOOD SPECIMENOrdering Facility: [facility] Address: [address] [place] [address] Performed By: #### 2 4323-8 ####[facility] LABCLIA [id number] [place] [address] [place] Chloride [Moles/Vol] 97 mmol/L Low 98-107 [facility] Comment on above: Order Comment: Speci men Type: BLOOD SPECIMENOrdering Facility: [facility] Address: [address] [place] [address] Performed By: #### 2 4323-8 ####[facility] LABCLIA [id number] [place] [address] [place] CO2 [Moles/Vol] 25 mmol/L Normal 22-30 [facility] Comment on above: Order Comment: Speci men Type: BLOOD SPECIMENOrdering Facility: [facility] Address: [address] [place] [address] Performed By: #### 2 4323-8 ####[facility] LABCLIA [id number] [place] [address] [place] Creatinine [Mass/Vol] 0.57 mg/dL Low 0.73-1.22 [facility] Comment on above: Order Comment: Speci men Type: BLOOD SPECIMENOrdering Facility: [facility] Address: [address] [place] [address] Performed By: #### 2 4323-8 ####[facility] LABIA [id number] [place] [address] [place] Creatinine and Glomerular filtration rate.predicted panel (S/P/Bld) 115 mL/min/1.73m??? Normal >=60 [facility] Comment on above: Order Comment: Speci men Type: BLOOD SPECIMENOrdering Facility: [facility] Address: [address] [place] [address] Result Comment: Tia mated Glomerular Filtration Rate [...] actual GFR. Performed By: #### 2 4323-8 ####[facility] LABIA [id number] [place] [address] [place] Glucose [Mass/Vol] 240 mg/dL High 74-99 [facility] Comment on above: Order Comment: Osmin men Type: BLOOD SPECIMENOrdering Facility: [facility] Address: [address] [place] [address] Result Comment: The [place] Diabetes Association (ADA) provides guidance for cutoff [...] Standards of Medical Care in Diabetes 2016, [place] Diabetes Association. Diabetes Care. 2016.39(Suppl 1). Performed By: #### 2 4323-8 ####[facility] LABIA [id number] [place] [address] [place] Potassium [Moles/Vol] 4.6 mmol/L Normal 3.7-5.1 [facility] Comment on above: Order Comment: Osmin men Type: BLOOD SPECIMENOrdering Facility: [facility] Address: [address] [place] [address] Performed By: #### 2 4323-8 ####[facility] LABIA [id number] [place] [address] [place] Protein [Mass/Vol] 7.4 g/dL Normal 6.3-8.0 [facility] Comment on above: Order Comment: Osmin men Type: BLOOD SPECIMENOrdering Facility: [facility] Address: [address] [place] [address] Performed By: #### 2 4323-8 ####[facility] LABCLIA [id number] [place] [address] [place] Sodium [Moles/Vol] 133 mmol/L Low 136-144 [facility] Comment on above: Order Comment: Speci men Type: BLOOD SPECIMENOrdering Facility: [facility] Address: [address] [place] [address] Performed By: #### 2 4323-8 ####[facility] LABIA [id number] [place] [address] [place] Urea nitrogen [Mass/Vol] 11 mg/dL Normal 9-24 [facility] Comment on above: Order Comment: Speci men Type: BLOOD SPECIMENOrdering Facility: [facility] Address: [address] [place] [address] Performed By: #### 2 4323-8 ####[facility] LABIA [id number] [place] [address] [place] HbA1c (Bld)on 08-11-2024 Average glucose Estimated from glycated hemoglobin (Bld) [Mass/Vol] 209 mg/dL Normal [facility] Comment on above: Order Comment: Speci men Type: BLOOD SPECIMENOrdering Facility: [facility] Address: [address] [place] [address] Result Comment: eAG: (Estimated average glucose) is a calculated value from HgbA1c and is medicare sales representative of the average blood glucose level in the last 2-3 month period. Performed By: #### 5 5454-3 ####[facility]UN[facility] [id number] [place] [address] [place] HbA1c (Bld) [Mass fraction] 8.9 % High 4.3-5.6 [facility] Comment on above: Order Comment: Speci men Type: BLOOD SPECIMENOrdering Facility: [facility] Address: [address] [place] [address] Result Comment: [place] ican Diabetes Association guidelines indicate that patients with HgbA1c in the range 5.7-6.4% are at increased risk for development of diabetes, and intervention by lifestyle modification may be beneficial. HgbA1c greater or equal to 6.5% is considered diagnostic of diabetes. Performed By: #### 5 5454-3 ####[facility] LABANA [id number] DHAVALRita [facility] [id number] [address] [facility] CNOVon 05-22-2024 CNOV Office Visit (FAMPWS) ELIEL SOUZA ([id number]) 1970 M Date Time Provider Department 05/22/24 9:40 AM [facility] During your visit today, we recorded the [...] issues. Hx of Ileostomy. Was seen at [facility] on 05/14/24 for abdominal pain. Has [...] as needed. 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 no die out worker needed 11/2010: Closed fracture of femur [...] insulin lispro (more content not included)... Normal [facility] CNOVon 05-14-2024 CNOV Office Visit (UCWSTR) EILEL SOUZA ([id number]) 1970 M Date Time Provider Department 05/14/24 2:00 PM MATILDE GAN WSTR During your visit today, we recorded the following information about you: Temperature Pulse Respiration Blood pressure 97.5 degrees 95/minute minute 108/74 Weight 125.5 kg Matilde Gan APRN.BUILDING SPECIALIST 05/14/2024 2:30 PM Signed This note was created using [employer]. Subjective Eliel Souza is a 53 year [...] going to an emergency room. Matilde Gan APRN.BUILDING SPECIALIST Allergies As of Date: 05/14/2024 (No Known Allergies) Date Reviewed: 05/14/2024 Reviewed by: Matilde Gan APRN.BUILDING SPECIALIST - Fully Assessed Reason for Visit: Diarrhea [...] 8 h (more content not included)... Normal [facility] ALBUMIN/CREATININE RATIO, UR INEon 05-09-2024 Albumin DL <= 20 mg/L (U) [Mass/Vol] mg/dL Normal [facility] Comment on above: Order Comment: Speci men Type: URINE SPECIMENOrdering Facility: [facility] Address: [address] [place] [address] Performed By: #### U ACR ####[facility] LABCLIA [id number] [place] [address] [place] Albumin/Creatinine (U) [Mass ratio] <9 Normal <30 [facility] Comment on above: Order Comment: Speci men Type: URINE SPECIMENOrdering Facility: [facility] Address: [address] [place] [address] Result Comment: Adul t Male and Female Nephrotic Criteria: <30 mg/g is considered normal to mildly increased 30-300 mg/g is considered moderately increased >300 mg/g is considered severely increased KDIGO. (2013). KDIGO 2012 Clinical Practice Guideline for the Evaluation and Management of Chronic Kidney Disease. Official Journal of the International Society of Nephrology, 3(1), 1-150. Performed By: #### U ACR ####[facility] LABCLIA [id number] [place] [address] [place] Creatinine (U) [Mass/Vol] 128.5 mg/dL Normal 20.0-300. 0 [facility] Comment on above: Order Comment: Speci men Type: URINE SPECIMENOrdering Facility: [facility] Address: [address] [place] [address] Performed By: #### U ACR ####[facility] LABCLIA [id number] [place] [address] [place] Comprehensive metabolic 2000 panelon 05-09-2024 Albumin [Mass/Vol] 3.8 g/dL Low 3.9-4.9 [facility] Comment on above: Order Comment: Speci men Type: BLOOD SPECIMENOrdering Facility: [facility] Address: [address] [place] [address] Performed By: #### 2 4331-1, 87245-6 ####[facility] LABCLIA [id number] [place] [id number] [place] ALP [Catalytic activity/Vol] 110 U/L Normal 38-113 [facility] Comment on above: Order Comment: Speci men Type: BLOOD SPECIMENOrdering Facility: [facility] Address: [address] [place] [address] Performed By: #### 2 4331-1, 53838-7 ####[facility] LABCLIA [id number] [place] [address] [place] ALT [Catalytic activity/Vol] 33 U/L Normal 10-54 [facility] Comment on above: Order Comment: Speci men Type: BLOOD SPECIMENOrdering Facility: [facility] Address: [address] [place] [address] Performed By: #### 2 4331-1, 69307-8 ####[facility] LABCLIA [id number] [place] [id number] [place] Anion gap [Moles/Vol] 10 mmol/L Normal 8-15 [facility] Comment on above: Order Comment: Speci men Type: BLOOD SPECIMENOrdering Facility: [facility] Address: [address] [place] [address] Performed By: #### 2 4331-1, 59646-4 ####[facility] LABCLIA [id number] [place] [id number] [place] AST [Catalytic activity/Vol] 25 U/L Normal 14-40 [facility] Comment on above: Order Comment: Speci men Type: BLOOD SPECIMENOrdering Facility: [facility] Address: [address] [place] [id number] Performed By: #### 2 4331-1, ####[facility] LABCLIA [id number] [place] [id number] [place] Bilirubin [Mass/Vol] 1.0 mg/dL Normal 0.2-1.3 [facility] Comment on above: Order Comment: Speci men Type: BLOOD SPECIMENOrdering Facility: [facility] Address: [address] [place] [address] Performed By: #### 2 4331-1, ####[facility] LABCLIA [id number] [place] [address] [place] Calcium [Mass/Vol] 9.3 mg/dL Normal 8.5-10.2 [facility] Comment on above: Order Comment: Speci men Type: BLOOD SPECIMENOrdering Facility: [facility] Address: [address] [place] [address] Performed By: #### 2 4331-1, ####[facility] LABCLIA [id number] [place] [address] [place] Chloride [Moles/Vol] 100 mmol/L Normal 98-107 [facility] Comment on above: Order Comment: Speci men Type: BLOOD SPECIMENOrdering Facility: [facility] Address: [address] [place] [id number] Performed By: #### 2 4331-1, ####[facility] LABCLIA [id number] [place] [id number] [place] CO2 [Moles/Vol] 24 mmol/L Normal 22-30 [facility] Comment on above: Order Comment: Speci men Type: BLOOD SPECIMENOrdering Facility: [facility] Address: [address] [place], [place] [address] Performed By: #### 2 4331-1, 61901-0 ####[facility] LABIA [id number] [place] [address] [place] Creatinine [Mass/Vol] 0.67 mg/dL Low 0.73-1.22 [facility] Comment on above: Order Comment: Osmin lopez Type: BLOOD SPECIMENOrdering Facility: [facility] Address: [address] [place] [address] Performed By: #### 2 4331-1, 55633-1 ####[facility] LABIA [id number] [place] [address] [place] Creatinine and Glomerular filtration rate.predicted panel (S/P/Bld) 110 mL/min/1.73m??? Normal >=60 [facility] Comment on above: Order Comment: Osmin lopez Type: BLOOD SPECIMENOrdering Facility: [facility] Address: [address] [place] [address] Result Comment: Tia mated Glomerular Filtration Rate [...] actual GFR. Performed By: #### 2 4331-1, 72666-7 ####[facility] LABIA [id number] [place] [address] [place] Glucose [Mass/Vol] 192 mg/dL High 74-99 [facility] Comment on above: Order Comment: Osmin lopez Type: BLOOD SPECIMENOrdering Facility: [facility] Address: [address] [place] [address] Result Comment: The [place] Diabetes Association (ADA) provides guidance for cutoff [...] Standards of Medical Care in Diabetes 2016, [place] Diabetes Association. Diabetes Care. 2016.39(Suppl 1). Performed By: #### 2 4331-, ####[facility] LABCLIA [id number] [place] [address] [place] Potassium [Moles/Vol] 4.6 mmol/L Normal 3.7-5.1 [facility] Comment on above: Order Comment: Speci men Type: BLOOD SPECIMENOrdering Facility: [facility] Address: [address] [place] [address] Performed By: #### 2 43310-17, ####[facility] LABIA [id number] [place] [address] [place] Protein [Mass/Vol] 7.0 g/dL Normal 6.3-8.0 [facility] Comment on above: Order Comment: Speci men Type: BLOOD SPECIMENOrdering Facility: [facility] Address: [address] [place] [address] Performed By: #### 2 43310-17, ####[facility] LABCLIA [id number] [place] [address] [place] Sodium [Moles/Vol] 134 mmol/L Low 136-144 [facility] Comment on above: Order Comment: Speci men Type: BLOOD SPECIMENOrdering Facility: [facility] Address: [address] [place] [address] Performed By: #### 2 4331-, ####[facility] LABCLIA [id number] [address] [address] [place] Urea nitrogen [Mass/Vol] 10 mg/dL Normal 9-24 [facility] Comment on above: Order Comment: Osmin lopez Type: BLOOD SPECIMENOrdering Facility: [facility] Address: [address] [place] [address] Performed By: #### 2 4331-1, 08455-6 ####[facility] LABCLIA [id number] [place] [address] [place] HbA1c (Bld)on 05-09-2024 Average glucose Estimated from glycated hemoglobin (Bld) [Mass/Vol] 212 mg/dL Normal [facility] Comment on above: Order Comment: Osmin lopez Type: BLOOD SPECIMENOrdering Facility: [facility] Address: [address] [place] [address] Result Comment: eAG: (Estimated average glucose) is a calculated value from HgbA1c and is medicare sales representative of the average blood glucose level in the last 2-3 month period. Performed By: #### 5 5454-3 ####[facility] LABCLIA [id number] [place] [address] [place] HbA1c (Bld) [Mass fraction] 9.0 % High 4.3-5.6 [facility] Comment on above: Order Comment: Osmin lopez Type: BLOOD SPECIMENOrdering Facility: [facility] Address: [address] [place] [address] Result Comment: Amer [place] Diabetes Association guidelines indicate that patients with HgbA1c in the range 5.7-6.4% are at increased risk for development of diabetes, and intervention by lifestyle modification may be beneficial. HgbA1c greater or equal to 6.5% is considered diagnostic of diabetes. Performed By: #### 5 5454-3 ####[facility] LABCLIA [id number] [place] [id number] [place] Lipid 1996 panelon Cholesterol [Mass/Vol] 105 mg/dL Normal <200 Cl [facility] Comment on above: Order Comment: Osmin lopez Type: BLOOD SPECIMENOrdering Facility: [facility] Address: [address] [place] [address] Result Comment: <200 mg/dL, Desirable 200-239 mg/dL, Borderline high >239 mg/dL, High Performed By: #### 2 4331-1, 60929-2 ####[facility] LABCLIA [id number] [address] [address] [place] Cholesterol in HDL [Mass/Vol] 18 mg/dL Low >39 [facility] Comment on above: Order Comment: Speci men Type: BLOOD SPECIMENOrdering Facility: [facility] Address: [address] [place] [address] Result Comment: 40-5 9 mg/dL, Acceptable >59 mg/dL, High: Negative risk factor for coronary heart disease <40 mg/dL, Low: Positive risk factor for coronary heart disease Performed By: #### 2 4331-1, 19372-2 ####[facility] LABCLIA [id number] [place] [address] [place] Cholesterol in LDL [Mass/Vol] 48 mg/dL Normal <100 [facility] Comment on above: Order Comment: Manni men Type: BLOOD SPECIMENOrdering Facility: [facility] Address: [address] [place] [address] Result Comment: <100 mg/dL, Optimal 100-129 mg/dL, Near optimal/above optimal 130-159 mg/dL, Borderline high 160-189 mg/dL, High >189 mg/dL, Very high Secondary prevention optimal LDL Cholesterol levels are recommended to be < 70 mg/dL Performed By: #### 2 4331-1, 25373-6 ####[facility] LABCLIA [id number] [place] [address] [place] Cholesterol in LDL/Cholesterol in HDL [Mass ratio] 2.67 {ratio} High <2.54 [facility] Comment on above: Order Comment: Speci men Type: BLOOD SPECIMENOrdering Facility: [facility] Address: [address] [place] [address] Result Comment: Refe carlene: 1. National Cholesterol Education Program ATP III Guideline At-A-Glance Quick Desk Reference: National Heart, Lung, and Blood [place]. National Institutes of Health. 2001: NIH Publication No. 01-3305. 2. An International Atherosclerosis Society position paper: global recommendations for the management of dyslipidemia: executive summary, Atherosclerosis. 2014: 232(2):410-413. Performed By: #### 2 4331-1, 73704-0 ####[facility] LABCLIA [id number] [place] [address] [place] Cholesterol in VLDL [Mass/Vol] 39 mg/dL High <30 [facility] Comment on above: Order Comment: Osmin lopez Type: BLOOD SPECIMENOrdering Facility: [facility] Address: [address] [place] [address] Performed By: #### 2 4331-1, 49952-7 ####[facility] LABIA [id number] [place] [address] [place] Cholesterol non HDL [Mass/Vol] 87 mg/dL Normal <130 [facility] Comment on above: Order Comment: Osmin lopez Type: BLOOD SPECIMENOrdering Facility: [facility] Address: [address] [place] [address] Result Comment: <130 mg/dL, Optimal 130-159 mg/dL, Near optimal/above optimal 160-189 mg/dL, Borderline high 190-219 mg/dL, High >219 mg/dL, Very high Secondary prevention optimal non HDL Cholesterol levels are recommended to be <100 mg/dL Performed By: #### 2 4331-1, 92505-8 ####[facility] LABIA [id number] [place] [address] [place] Cholesterol.total/Cholest domenic in HDL [Mass ratio] 5.83 {ratio} High <5.10 [facility] Comment on above: Order Comment: Osmin lopez Type: BLOOD SPECIMENOrdering Facility: [facility] Address: [address] [place] [address] Performed By: #### 2 4331-1, 04362-4 ####[facility] LABCLIA [id number] [place] [address] [place] FASTING TIME 10 hrs Normal [facility] Comment on above: Order Comment: Speci men Type: BLOOD SPECIMENOrdering Facility: [facility] Address: [address] [place] [address] Performed By: #### 2 4331-1, 14013-8 ####[facility] LABCLIA [id number] [place] [address] [place] Triglyceride [Mass/Vol] 194 mg/dL High <150 [facility] Comment on above: Order Comment: Speci men Type: BLOOD SPECIMENOrdering Facility: [facility] Address: [address] [place] [address] Result Comment: <150 mg/dL, Normal 150-199 mg/dL, Borderline high 200-499 mg/dL, High >499 mg/dL, Very high Performed By: #### 2 4331-1, 28976-6 ####[facility] LABCLIA [id number] [place] [address] [place] Absolute lymphocyte countOrd ered By: Bruce Dong on 01-29-2024 Lymphocytes Auto (Unsp spec) [#/Vol] 2.23 10*3/uL 0.83-4.51 [facility] Automated lymphocyte count a s percentage of total leukocytesOrdered By: Bruce Dong on 01-29-2024 Lymphocytes/100 WBC Auto (Unsp spec) 39.1 % 19-41 [facility] Basophil percentageOrdered B y: Bruce Dong on 01-29-2024 Basophils/100 WBC (Bld) 1.1 % 0-1 [facility] Chloride [Moles/Vol] 105 mmol/L 98-107 [facility] Eosinophils/100 WBC (Bld) 4.7 % 0-5 [facility] Glucose [Mass/Vol] 415 mg/dL 74-106 [facility] Comment on above: Slight Lipemia, Resu lt may be falsely increased.Glucose result greater than or equal to 200 mg/dLsuggests DIABETES MELLITUS per A.D.A. criteria. Hemoglobin (Bld) [Mass/Vol] 15.3 g/dL 13.0-16.5 [facility] Monocytes/100 WBC (Bld) 7.4 % 0-10 [facility] Neutrophils (Bld) [#/Vol] 2.6 10*3/uL 2.0-7.7 [facility] Neutrophils/100 WBC (Bld) 46.1 % 47-70 [facility] Potassium [Moles/Vol] 3.9 mmol/L 3.5-5.1 [facility] Comment on above: Moderate Hemolysis, Result may be falsely increased.-Slight Lipemia, Result may be falsely increased. Sodium [Moles/Vol] 135 mmol/L 136-145 [facility] WBC (Bld) [#/Vol] 5.7 10*3/uL 4.4-11.0 [facility] Blood platelet adequacy dete ction by light microscopyOrdered By: Bruce Dong on 01-29-2024 Platelets LM Ql (Bld) SLT DEC ADEQ [facility] Determination of erythrocyte mean corpuscular volume (MCV)Ordered By: Bruce Dong on 01-29-2024 MCV (RBC) [Entitic vol] 85.2 fL 80-94 [facility] Erythrocyte distribution wid th ratioOrdered By: Bruce Dong on 01-29-2024 Erythrocyte distribution width (RBC) [Ratio] 13.2 % 11.6-14.6 [facility] Erythrocyte distribution wid th standard deviationOrdered By: Bruce Dong on 01-29-2024 Erythrocyte distribution width (RBC) [Entitic vol] 41.0 fL 35.1-43.9 [facility] Hematocrit Auto (Bld) [Volum e fraction]Ordered By: Bruce Dong on 01-29-2024 Hematocrit (Bld) [Volume fraction] 44.4 % 40-54 [facility] Immature granulocytes/100 WB C Auto (Bld)Ordered By: Bruce Dong on 01-29-2024 Immature granulocytes/100 WBC (Bld) 1.600 % 0.0-0.9 [facility] Comment on above: IG% - Immature Granu locytes (promyelocytes, myelocytes and metamyelocytes) > 1% indicates that a LEFT SHIFT is Present. Laboratory - Chemistry and C hemistry - challengeOrdered By: Bruce Dong on 01-29-2024 CO2 [Moles/Vol] 22.0 mmol/L 21.0-32.0 [facility] Comment on above: Slight Lipemia, Resu lt may be falsely increased. Magnesium [Mass/Vol] 1.6 mg/dL 1.6-2.6 [facility] Comment on above: Moderate Hemolysis, Result may be falsely increased.-Slight Lipemia, Result may be falsely increased. Natriuretic peptide B (Bld) [Mass/Vol] 56.4 pg/mL 0-100 [facility] Urea nitrogen/Creatinine [Mass ratio] 20.5 mg/mg 10-20 [facility] Laboratory - Hematology and Cell countsOrdered By: Bruce Dong on 01-29-2024 MCH (RBC) [Entitic mass] 29.4 pg 27.0-32.0 [facility] MCHC (RBC) [Mass/Vol] 34.5 g/dL 32-36 [facility] Nucleated RBC/100 WBC (Bld) [Ratio] 0 % 0-5 [facility] Platelet mean volume (Bld) [Entitic vol] 11.7 fL 6.2-12.0 [facility] Platelets (Bld) [#/Vol] 92 10*3/uL 150-450 [facility] Laboratory - Microbiology an d Antimicrobial susceptibilityOrdered By: Bruce Dong on 01-29-2024 SARS-CoV-2 (COVID-19) RNA LAZARO+probe Ql (Unsp spec) [facility] No Panel InformationOrdered By: Bruce Dong on 01-29-2024 Estimated Creatinine Clearance Calc 152.90 ml/min [facility] Estimated GFR (MDRD) Amer 132 mL/min >60 [facility] Comment on above: GFR Calc Estimated GFR (MDRD) Non-Af Amer 109 mL/min >60 [facility] Comment on above: Non- GFR Calc RBC Auto (Bld) [#/Vol]Ordere d By: Bruce Dong on 04-14-2024 RBC (Bld) [#/Vol] 5.21 10*6/uL 4.6-6.2 [facility] Serum or plasma calcium mohan urement (mass/volume)Ordered By: Bruce Dong on 01-29-2024 Calcium [Mass/Vol] 8.9 mg/dL 8.5-10.1 [facility] Comment on above: Slight Lipemia, Resu lt may be falsely increased. Serum or plasma creatinine m easurement (mass/volume)Ordered By: Bruce Dong on 01-29-2024 Creatinine [Mass/Vol] 0.78 mg/dL 0.70-1.30 [facility] Comment on above: Slight Lipemia, Resu lt may be falsely increased.The validity of the calculated GFR & GFRAA in patients over 70 years has not been determined. Clinical correlation is essential. Serum or plasma urea nitroge n measurement (mass/volume)Ordered By: Bruce Dong on 01-29-2024 Urea nitrogen [Mass/Vol] 16 mg/dL 7-18 [facility] Comment on above: Slight Lipemia, Resu lt may be falsely increased. Thin prep Papanicolaou smear with manual screeningOrdered By: Bruce Dong on 01-29-2024 Thin prep Papanicolaou smear with manual screening 8 5-15 [facility] XR CHEST 2V FRONTAL/LATon [facility] XR Chest PA and Lateralon IMPRESSION: No acute radiographic abnormality. Engineering Psychologist: BJORN Transcribe Date/Time: Sep 21 2023 4:13P Dictated by : LINDA SANDY MD This examination was interpreted and the report reviewed and electronically signed by: LINDA SANDY MD on Sep 21 2023 4:14PM [facility] DIVISION OF RADIOLOGY * * *Final Report* [...] right mid rib. DIVISION OF RADIOLOGY Provider, [facility] [place] - 09/21/2023 * * *Final Report* * [...] rib. IMPRESSION IMPRESSION: No acute radiographic abnormality. Engineering Psychologist: PSCB Transcribe Date/Time: Sep 21 2023 4:13P Dictated by : LINDA SANDY MD This examination was interpreted and the report reviewed and electronically signed by: LINDA SANDY MD on Sep 21 2023 4:14PM EST [facility] Radiology Study observation (narrative) Robbie salas [facility] XR Chest PA and LateralOrder ed By: Ccf Provider on 09-21-2023 [facility] Absolute lymphocyte countOrd ered By: Dr. Whiteside on 12-06-2022 Lymphocytes Auto (Unsp spec) [#/Vol] 0.94 10*3/uL 0.83-4.51 [facility] Basophil percentageOrdered B y: Dr. Whiteside on 12-06-2022 Basophils/100 WBC (Bld) 0.5 % 0-1 [facility] Chloride [Moles/Vol] 99 mmol/L 98-107 [facility] Eosinophils/100 WBC (Bld) 1.0 % 0-5 [facility] Glucose [Mass/Vol] 346 mg/dL 74-106 [facility] Comment on above: Glucose result great er than or equal to 200 mg/dLsuggests DIABETES MELLITUS per A.D.A. criteria. Neutrophils (Bld) [#/Vol] 5.7 10*3/uL 2.0-7.7 [facility] Neutrophils/100 WBC (Bld) 73.9 % 47-70 [facility] Potassium [Moles/Vol] 4.1 mmol/L 3.5-5.1 [facility] Sodium [Moles/Vol] 132 mmol/L 136-145 [facility] WBC (Bld) [#/Vol] 7.7 10*3/uL 4.4-11.0 [facility] Blood erythrocytes count (nu mber/volume)Ordered By: Dr. Whiteside on 12-06-2022 RBC (Bld) [#/Vol] 6.44 10*6/uL 4.6-6.2 [facility] Blood hemoglobin measurement (mass/volume)Ordered By: Dr. Whiteside on 12-06-2022 Hemoglobin (Bld) [Mass/Vol] 18.5 g/dL 13.0-16.5 [facility] Blood lymphocytes/100 leukoc ytesOrdered By: Dr. Whiteside on 12-06-2022 Lymphocytes/100 WBC (Bld) 12.2 % 19-41 [facility] Blood monocytes/100 leukocyt esOrdered By: Dr. Whiteside on 12-06-2022 Monocytes/100 WBC (Bld) 11.6 % 0-10 [facility] Blood platelet mean volumeOr dered By: Dr. Whiteside on 12-06-2022 Platelet mean volume (Bld) [Entitic vol] 11.0 fL 6.2-12.0 [facility] Determination of erythrocyte mean corpuscular volume (MCV)Ordered By: Dr. Whiteside on 12-06-2022 MCV (RBC) [Entitic vol] 83.4 fL 80-94 [facility] Hematocrit Auto (Bld) [Volum e fraction]Ordered By: Dr. Whiteside on 12-06-2022 Hematocrit (Bld) [Volume fraction] 53.7 % 40-54 [facility] Laboratory - Chemistry and C hemistry - challengeOrdered By: Dr. Whiteside on 12-06-2022 CO2 [Moles/Vol] 22.0 mmol/L 21.0-32.0 [facility] Urea nitrogen/Creatinine [Mass ratio] 23.6 mg/mg 10-20 [facility] Laboratory - Hematology and Cell countsOrdered By: Dr. Whiteside on 12-06-2022 Erythrocyte distribution width (RBC) [Entitic vol] 39.5 fL 35.1-43.9 [facility] Erythrocyte distribution width (RBC) [Ratio] 13.2 % 11.6-14.6 [facility] Immature granulocytes/100 WBC (Bld) 0.800 % 0.0-0.9 [facility] Comment on above: IG% - Immature Granu locytes (promyelocytes, myelocytes and metamyelocytes) > 1% indicates that a LEFT SHIFT is Present. MCH (RBC) [Entitic mass] 28.7 pg 27.0-32.0 [facility] Nucleated RBC/100 WBC (Bld) [Ratio] 0 % 0-5 [facility] MCHC Auto (RBC) [Mass/Vol]Or dered By: Dr. Whiteside on 12-06-2022 MCHC (RBC) [Mass/Vol] 34.5 g/dL 32-36 [facility] No Panel InformationOrdered By: Dr. Whiteside on 12-06-2022 Estimated Creatinine Clearance Calc 91.78 ml/min [facility] Estimated GFR (MDRD) Amer 103 mL/min >60 [facility] Comment on above: GFR Calc Estimated GFR (MDRD) Non-Af Amer 85 mL/min >60 [facility] Comment on above: Non- GFR Calc Troponin I High Sensitivity 15 pg/mL 3.0-78.0 [facility] Comment on above: Please Note: New [place] t Units and Gender Specific Reference Ranges. For more information see Policy Stat Procedure [place] High Sensitivity Troponin (TNIH) and attachments. Platelets bldOrdered By: Dr. Whiteside on 12-06-2022 Platelets (Bld) [#/Vol] 125 10*3/uL 150-450 [facility] Review by pathologistOrdered By: Dr. Whiteside on 12-06-2022 Pathologist review Jl (Unsp spec) [Interp] May chen [facility] Serum or plasma calcium mohan urement (mass/volume)Ordered By: Dr. Whiteside on 12-06-2022 Calcium [Mass/Vol] 9.5 mg/dL 8.5-10.1 [facility] Serum or plasma creatinine m easurement (mass/volume)Ordered By: Dr. Whiteside on 12-06-2022 Creatinine [Mass/Vol] 0.98 mg/dL 0.70-1.30 [facility] Comment on above: The validity of the calculated GFR & GFRAA in patients over 70 years has not been determined. Clinical correlation is essential. Serum or plasma urea nitroge n measurement (mass/volume)Ordered By: Dr. Whiteside on 12-06-2022 Urea nitrogen [Mass/Vol] 23 mg/dL 7- [facility] Thin prep Papanicolaou smear with manual screeningOrdered By: Dr. Whiteside on 12-06-2022 Thin prep Papanicolaou smear with manual screening 11 - [facility] ANES POSTPROC EVALon 020 ANES POSTPROC EVAL HNO ID: [id number] Author: Raiza Negron Service: ? Author Type: Anesthesiologist Type: Anesthesia Postprocedure Evaluation Filed: 09/03/2020 6:07 PM Note Text: POST ANESTHESIA EVALUATION NOTE : 1970 Procedure Summary Date: 09/03/20 Room / Location: MD OR / MD OR Anesthesia Start: 1619 Anesthesia Stop: 1746 [...] September 03, 2020 TIME: 6:06 PM CSN: [id number] [facility] ANES PRE-OPon 09-03-2020 ANES PRE-OP HNO ID: [id number] Author: Raiza Negron Service: ? Author Type: [...] BiPAP CARDIO (+) Coronary artery disease involving [place] coronary artery of [place] heart (+) DVT of lower extremity (deep [...] September 03, 2020 TIME: 4:02 PM CSN: [id number] [facility] OPERATIVE NOon 09-03-2020 OPERATIVE NO HNO ID: [id number] Author: Eileen Saha Service: Urology Author Type: Physician Type: Operative Report Filed: 09/03/2020 5:42 PM Note Text: OPERATIVE/PROCEDURE REPORT LOG ID: [id number] Surgery/Procedure Date: 09/03/2020 Incision/Procedure Start Time: 4:41 PM Incision Close/Procedure End Time: 5:40 PM Surgeon(s)/Procedura list(s) and New Order Clerk(s): Surgeon(s) and Role: * Eileen Saha - [...] 09/03/2020 5:02 PM Implantable Devices: None Drains: [place] Complications: None Anatomic Site: N/A Approach: Open Qualifier: None I/primary surgeon/proceduralis t performed the procedure with assistance. SIGNATURE: Eileen Saha MD PATIENT NAME: Eliel Souza DATE: September 03, 2020 TIME: 5:40 PM PAGER/CONTACT #: [phone] [facility] SURGICAL PATHOLOGYon CASE REPORT [facility] Comment on above: Order Comment: Speci men Type: TISSUE SPECIMEN Result Comment: Surg ica Pathology Report Case: [id number] Authorizing Provider: Eileen Saha Collected: 09/03/2020 05:02 PM Ordering Location: [place] [facility] [place] Received: 09/04/2020 06:58 AM Pathologist: Vilma Oakes MD Specimen: HYDROCELE SAC RIGHT Performed By: #### S #### [facility] CLIA [id number] [address] [place] [address] FINAL DIAGNOSIS Normal [facility] Comment on above: Order Comment: Speci men Type: TISSUE SPECIMEN Result Comment: Righ t inguinal tissue, excision Fibromembranous tissue with mesothelial lining compatible with hydrocele sac. Performed By: #### S #### [facility] CLIA [id number] [address] [place] [address] FINAL PERFORMING LAB Normal [facility] Comment on above: Order Comment: Speci men Type: TISSUE SPECIMEN Result Comment: Diag nostic interpretation performed at [facility], [address] [place] [address] CLIA# [id number] Small Business Sales Representative: Tyrone Douglass M.D. Performed By: #### S #### [facility] CLIA [id number] [address] [place] [address] GROSS DESCRIPTION Normal [facility] Comment on above: Order Comment: Speci men Type: TISSUE SPECIMEN Result Comment: Nellie Gilmore YDROCELE SAC RIGHT. Received in formalin labeled right hydrocele sac is a pink membranous segment of tissue measuring 6.5 x 3.5 x 1.3 cm. One side is smooth and glistening the other side is slightly roughened. The specimen is sectioned. Reference Test Clerk sections are submitted in formalin in 1 cassette. KVB/louise Gross examination performed at [facility], [address] [place] [address] CLIA# [id number] Performed By: #### S #### [facility] CLIA [id number] [address] [place] [address] XR FEMUR MINIMUM 2 VIEWS LEF Ton [...] AM Sign Date: 09/03/2020 10:22:08 AM [facility]ing [facility] XR SPINE LUMBOSACRAL 2 OR 3 VIEWSon [...] Date: 09/03/2020 10:16:56 AM Ordering Provider:Mesfin Conteh [facility] Javy 09-02-2020 CNPN Telephone (UROLAE) ELIEL SOUZA ([id number]) 1970 Date Time Provider Department 09/02/20 EILEEN [...] without c*07/05/2014 More... Coronary artery disease involving [place]*07/05/2014 More... Obstructive sleep apnea treated with [...] Status:Closed by MARIE RUSH on 09/02/20 [facility] HISTORY PHYSICALon 0 HISTORY PHYSICAL HNO ID: [id number] Author: Rachelle Herrera Service: ? Author Type: Nurse Practitioner Type: HANDP Filed: 08/27/2020 12:18 PM Note Text: HISTORY AND PHYSICAL EXAMINATION SERVICE DATE: 08/27/2020 SERVICE TIME: 11:34 AM PRIMARY CARE PHYSICIAN: Americo Borrego MD The patient has the following: ACTIVE PROBLEM LIST Depression Asthma Morbid Obesity ([facility]) Gerd (Gastroesophageal Reflux Disease) Benign Prostatic Hyperplasia History of Smoking Cervical Disc Displacement Hyperlipidemia Fatty Liver Cholecystitis Chronic H. Pylori Infection Unspecified Gastritis and Gastroduodenitis Without Mention of Hemorrhage Duodenitis Without Mention of Hemorrhage Blood in Stool DVT of lower extremity (deep venous thrombosis) ([facility]) Rib Fracture Fracture, Femur ([facility]) Calcaneal Spur Lateral Epicondylitis Abdominal Pain, Epigastric Copd (Chronic Obstructive Pulmonary Disease) ([facility]) Diabetes Mellitus Type 2, Controlled, Without Complications ([facility]) Coronary Artery Disease Involving [place] Coronary Artery of [place] Heart Obstructive Sleep Apnea Treated With Bipap Copd With Exacerbation ([facility]) Essential Hypertension Llq Abdominal Pain Diverticulitis Morbid Obesity With Bmi of 45.0-49.9, Adult ([facility]) Post-Op Pain Ileostomy in Place ([facility]) Nicotine use disorder, F17.2 Subjective CHIEF COMPLAINT: [...] Diagnosis Date - CAD (coronary artery disease), [place] coronary artery 2014 No PCI indicated. no die out worker needed - Closed fracture of femur ([facility]) 11/2010 - Depressive disorder, not elsewhere classified - Diabetes mellitus type 2 in obese ([facility]) - DVT of lower extremity (deep venous thrombosis) ([facility]) 11/2010 left - Esophageal reflux - Essential hypertension - CATY (obstructive sleep apnea) CPAP needs another sleep study machine set too high - Pelvic fracture ([facility]) - Seasonal allergic rhinitis - Unspecified asthma(493.90) Diagnosed in 20s. PAST SURGICAL HISTORY Procedure Laterality Date - COLONOSCOP W/ OR W/O [facility] SPEC 11/04/10 Normal colon - COLONOSCOP W/ OR W/O BRS SPEC 01/21/16 few diverticula - EGD W/O [facility] SPECIMEN W/BX 11/04/10 duodenitis - EGD [...] albuterol for rescue CAD -no stents no die out worker Diabetes -last A1c 7.1 uses insulin [...] Tests/Procedures Have Been Initiated: C-19 ordered in [facility] by surgeon CONSULTS: No Consults Pending Planned Anesthetic: General Instructions Given to Patient: Patient given verbal and written preop instructions and voices comprehension/compli ance. This note has been produced using [employer] speech recognition software and may contain errors to the system including grammar, punctuation, spelling, gender and words and phrases that may be inappropriate. SIGNATURE: Rachelle Herrera APRN.GISSELL PATIENT NAME: Eliel Souza DATE: August 27, 2020 TIME: 11:34 AM PAGER/CONTACT #: [facility] Javy 08-18-2020 [facility] Telephone (UROLAE) GONZALOELIEL CRAWLEY ([id number]) 1970 M Date Time Provider Department 08/18/20 [...] without c*07/05/2014 More... Coronary artery disease involving [place]*07/05/2014 More... Obstructive sleep apnea treated with [...] Encounter Status:Closed by MARIE RUSH on 08/19/20 [facility] HOSPon 08-15-2020 HOSP Patient:Olman Souza jase [...] List: Depression [F32.9] Asthma [J45.909] Morbid obesity ([facility]) [E66.01] GERD (gastroesophageal reflux disease) [K21.9] Benign prostatic hyperplasia [N40.0] History of smoking [Z87.891] Cervical disc displacement [M50.20] Hyperlipidemia [E78.5] Fatty liver [K76.0] Cholecystitis chronic [] H. pylori infection [A04.8] Unspecified gastritis and gastroduodenitis without mention of hemorrhage [K29.70, K29.90] Duodenitis without mention of hemorrhage [K29.80] Blood in stool [K92.1] DVT of lower extremity (deep venous thrombosis) ([facility]) [I82.409] Rib fracture [S22.39XA] Fracture, femur ([facility]) [S72.90XA] Calcaneal spur [M77.30] Lateral epicondylitis [M77.10] Abdominal pain, epigastric [R10.13] COPD (chronic obstructive pulmonary disease) ([facility]) [J44.9] Diabetes mellitus type 2, controlled, without complications ([facility]) [E11.9] Coronary artery disease involving [place] coronary artery of [place] heart [I25.10] Obstructive sleep apnea treated with BiPAP [G47.33] COPD with exacerbation ([facility]) [J44.1] Essential hypertension [I10] LLQ abdominal pain [R10.32] Diverticulitis [K57.92] Morbid obesity with BMI of 45.0-49.9, adult ([facility]) [E66.01, Z68.42] Post-op pain [G89.18] Ileostomy in place ([facility]) [Z93.2] Nicotine use disorder, F17.2 [...] and COVID test with Dr. Saha [facility] CNOVon 07-23-2020 CNOV Office Visit (AKURFL) ELIEL SOUZA ([id number]) 1970 M Date Time Provider Department 07/23/20 1:45 PM REKHA BROWN During your visit today, we recorded the following information about you: Blood pressure Weight Height 122/80 149.7 kg 1.803 m Rekha Brown DO, MBA 07/23/2020 3:42 PM Signed ?? [facility] UR[facility]Y LOCATION: [address] [place] [address] NEW PATIENT HISTORY AND PHYSICAL EXAM PATIENT [...] 72.8 Lymph% (%) Date Value 12/15/2015 20.8 [place]% (%) Date Value 12/15/2015 4.5 Eosin% (%) Date Value 12/15/2015 1.4 Baso% (%) Date Value 12/15/2015 0.5 Abs Neut (ANC) (k/uL) Date Value 12/15/2015 8.33 (H) Abs [place] (k/uL) Date Value 12/15/2015 0.52 Abs Eosin [...] 11/10/2019 5.0 4.5 - 8.0 Final Specific [place], Ur Date Value Ref Range Status 11/10/2019 [...] Diagnosis Date - CAD (coronary artery disease), [place] coronary artery 2014 No PCI indicated. - Closed fracture of femur ([facility]) 11/2010 - Depressive disorder, not elsewhere classified - Diabetes mellitus type 2 in obese ([facility]) - DVT of lower extremity (deep venous thrombosis) ([facility]) 11/2010 - Esophageal reflux - Essential hypertension - CATY (obstructive sleep apnea) - Pelvic fracture ([facility]) - Seasonal allergic rhinitis - [...] specific antigen) [Z12.5] Order(s):UA DIP, URINE (POC) [[id number]] Order #: [id number]. #:[id number] PSA/PROSTSPECAG SCRN [SQPSAS1] Order #: [id number] FUTURE Prescriptions as of 07/23/2020 Sig: LISINOPRIL [...] without c*07/05/2014 More... Coronary artery disease involving [place]*07/05/2014 More... Obstructive sleep apnea treated with [...] Encounter Status:Closed by REKHA BROWN on 07/23/20 [facility] PROGRESSon 07-23-2020 PROGRESS HNO ID: [id number] Author: Rekha Brown Service: ? Author Type: Physician Type: Progress Notes Filed: 07/23/2020 3:42 PM Note Text: ?? [facility] LOCATION: [address] [place] [address] NEW PATIENT HISTORY AND PHYSICAL EXAM PATIENT [...] 72.8 Lymph% (%) Date Value 12/15/2015 20.8 [place]% (%) Date Value 12/15/2015 4.5 Eosin% (%) Date Value 12/15/2015 1.4 Baso% (%) Date Value 12/15/2015 0.5 Abs Neut (ANC) (k/uL) Date Value 12/15/2015 8.33 (H) Abs [place] (k/uL) Date Value 12/15/2015 0.52 Abs Eosin [...] 11/10/2019 5.0 4.5 - 8.0 Final Specific [place], Ur Date Value Ref Range Status 11/10/2019 [...] Diagnosis Date - CAD (coronary artery disease), [place] coronary artery 2015 No PCI indicated. - Closed fracture of femur ([facility]) 11/2010 - Depressive disorder, not elsewhere classified - Diabetes mellitus type 2 in obese ([facility]) - DVT of lower extremity (deep venous thrombosis) ([facility]) 11/2010 - Esophageal reflux - Essential hypertension - CATY (obstructive sleep apnea) - Pelvic fracture ([facility]) - Seasonal allergic rhinitis - Unspecified asthma(493.90) Diagnosed in 20s. PAST SURGICAL HISTORY Procedure Laterality Date - COLONOSCOP W/ OR W/O [facility] SPEC 11/04/10 Normal colon - COLONOSCOP W/ OR W/O [facility] SPEC 01/21/16 few diverticula - EGD W/O [facility] SPECIMEN W/BX 11/04/10 duodenitis - EGD W/O [facility] SPECIMEN W/BX 01/21/16 minimal gastritis - [...] MBA Date: 07/23/2020 Time: 3:37 PM [facility] Vital Signs Date Time Vital Sign Value Performing Clinician Facility 07-06-2025 18:04-0400 Body temperature 97.9 [degF] Dr. Americo Borrego MD Work Phone: [facility] 07-06-2025 18:04-0400 Diastolic blood pressure 74 mm[Hg] Dr. Americo Borrego MD Work Phone: [facility] 07-06-2025 18:04-0400 Heart rate 76 /min Dr. Americo Borrego MD Work Phone: [facility] 07-06-2025 18:04-0400 Respiratory rate 19 /min Dr. Americo Borrego MD Work Phone: [phone] [place] [address] 07-06-2025 18:04-0400 SaO2% (BldA) [Mass fraction] 98 % Dr. Americo Borrego MD Work Phone: 3(964)710-468974 [place] [address] 07-06-2025 18:04-0400 Systolic blood pressure 135 mm[Hg] Dr. Americo Borrego MD Work Phone: 3(892)964-811574 [place] [address] 07-06-2025 15:02-0400 Body height 177.[address] Americo Borrego MD Work Phone: 8(811)[phone] [place] [address] 07-06-2025 15:02-0400 Body mass index (BMI) [Ratio] 40.1 kg/m2 Dr. Americo Borrego MD Work Phone: 3(882)[phone] [address] 07-06-2025 15:02-0400 Body weight [address] Americo Borrego MD Work Phone: [facility] 04-12-2025 11:30-0400 Body mass index (BMI) [Ratio] 38.77 kg/m2 Americo Borrego MD Work Phone: [facility] 04-12-2025 11:30-0400 Body weight 126.1 kg Americo Borrego MD Work Phone: [facility] 04-12-2025 11:30-0400 Diastolic blood pressure 72 mm[Hg] Americo Borrego MD Work Phone: [facility] 04-12-2025 11:30-0400 Heart rate 76 /min Americo Borrego MD Work Phone: [facility] 04-12-2025 11:30-0400 Respiratory rate 18 /min Americo Borrego MD Work Phone: [facility] 04-12-2025 11:30-0400 SaO2% (BldA) [Mass fraction] 96 % Americo Borrego MD Work Phone: [facility] 04-12-2025 11:30-0400 Systolic blood pressure 124 mm[Hg] Americo Borrego MD Work Phone: [facility] 01-08-2025 10:59-0400 Body mass index (BMI) [Ratio] 38.04 kg/m2 Americo Borrego MD Work Phone: [facility] 01-08-2025 10:59-0400 Body weight 123.7 kg Americo Borrego MD Work Phone: [facility] 01-08-2025 10:59-0400 Diastolic blood pressure 80 mm[Hg] Americo Borrego MD Work Phone: [facility] 01-08-2025 10:59-0400 Heart rate 76 /min Americo Borrego MD Work Phone: [facility] 01-08-2025 10:59-0400 Respiratory rate 18 /min Americo Borrego MD Work Phone: [facility] 01-08-2025 10:59-0400 Systolic blood pressure 126 mm[Hg] Americo Borrego MD Work Phone: [facility] 08-24-2024 10:34-0500 Body mass index (BMI) [Ratio] 38.9 kg/m2 Americo Borrego MD Work Phone: [facility] 08-24-2024 10:34-0500 Body weight 126.5 kg Americo Borrego MD Work Phone: [facility] 08-24-2024 10:34-0500 Diastolic blood pressure 70 mm[Hg] Americo Borrego MD Work Phone: [facility] 08-24-2024 10:34-0500 Heart rate 68 /min Americo Borrego MD Work Phone: [facility] 08-24-2024 10:34-0500 Respiratory rate 18 /min Americo Borrego MD Work Phone: [facility] 08-24-2024 10:34-0500 SaO2% (BldA) [Mass fraction] 97 % Americo Borrego MD Work Phone: [facility] 08-24-2024 10:34-0500 Systolic blood pressure 110 mm[Hg] Americo Borrego MD Work Phone: [facility] 05-22-2024 09:32-0400 Body mass index (BMI) [Ratio] 38.56 kg/m2 Americo Borrego MD Work Phone: [facility] 05-22-2024 09:32-0400 Body temperature 97.39 [degF] Americo Borrego MD Work Phone: [facility] 05-22-2024 09:32-0400 Body weight 125.4 kg Americo Borrego MD Work Phone: [facility] 05-22-2024 09:32-0400 Diastolic blood pressure 62 mm[Hg] Americo Borrego MD Work Phone: [facility] 05-22-2024 09:32-0400 Heart rate 82 /min Americo Borrego MD Work Phone: [facility] 05-22-2024 09:32-0400 Respiratory rate 18 /min Americo Borrego MD Work Phone: [facility] 05-22-2024 09:32-0400 Systolic blood pressure 104 mm[Hg] Americo Borrego MD Work Phone: [facility] 05-14-2024 14:09-0400 Body mass index (BMI) [Ratio] 38.59 kg/m2 Matilde Moomaw POCKETBOOK MAKER.BUILDING SPECIALIST Work Phone: [facility] 05-14-2024 14:09-0400 Body temperature 97.5 [degF] Matilde Moomaw POCKETBOOK MAKER.BUILDING SPECIALIST Work Phone: [facility] 05-14-2024 14:09-0400 Body weight 125.5 kg Matilde Moomaw POCKETBOOK MAKER.BUILDING SPECIALIST Work Phone: [facility] 05-14-2024 14:09-0400 Diastolic blood pressure 74 mm[Hg] Matilde Moomaw POCKETBOOK MAKER.BUILDING SPECIALIST Work Phone: [facility] 05-14-2024 14:09-0400 Heart rate 95 /min Matilde Moomaw POCKETBOOK MAKER.BUILDING SPECIALIST Work Phone: [facility] 05-14-2024 14:09-0400 Respiratory rate 21 /min Matilde Moomaw POCKETBOOK MAKER.BUILDING SPECIALIST Work Phone: [facility] 05-14-2024 14:09-0400 SaO2% (BldA) [Mass fraction] 97 % Matilde Moomaw POCKETBOOK MAKER.BUILDING SPECIALIST Work Phone: [facility] 05-14-2024 14:09-0400 Systolic blood pressure 108 mm[Hg] Matilde Moomaw POCKETBOOK MAKER.BUILDING SPECIALIST Work Phone: [facility] 02-20-2024 12:46-0400 Body mass index (BMI) [Ratio] 40.61 kg/m2 Americo Borrego MD Work Phone: [facility] 02-20-2024 12:46-0400 Body weight 132.09 kg Americo Borrego MD Work Phone: [facility] 02-20-2024 12:46-0400 Diastolic blood pressure 74 mm[Hg] Americo Borrego MD Work Phone: [facility] 02-20-2024 12:46-0400 Heart rate 76 /min Americo Borrego MD Work Phone: [facility] 02-20-2024 12:46-0400 Respiratory rate 18 /min Americo Borrego MD Work Phone: [facility] 02-20-2024 12:46-0400 Systolic blood pressure 110 mm[Hg] Americo Borrego MD Work Phone: [facility] 01-29-2024 03:17-0400 Respiratory rate 17 /min [facility] 01-29-2024 03:17-0400 SaO2% (BldA) [Mass fraction] 99 % [facility] 01-29-2024 03:16-0400 Body temperature 97.4 [degF] [facility] 01-29-2024 03:16-0400 Diastolic blood pressure 65 mm[Hg] [facility] 01-29-2024 03:16-0400 Heart rate 82 /min [facility] 01-29-2024 03:16-0400 Systolic blood pressure 117 mm[Hg] [facility] 01-29-2024 00:03-0400 Body height 180.34 cm [facility] 01-29-2024 00:03-0400 Body mass index (BMI) [Ratio] 42.9 kg/m2 [facility] 01-29-2024 00:03-0400 Body weight 139.6 kg [facility] 11-26-2023 11:15-0500 Body temperature 97.59 [degF] Emil Luo MD Work Phone: [facility] 11-26-2023 11:15-0500 Body weight 134.45 kg Emil Luo MD Work Phone: [facility] 11-26-2023 11:15-0500 Diastolic blood pressure 90 mm[Hg] Emil Luo MD Work Phone: [facility] 11-26-2023 11:15-0500 Heart rate 94 /min Emil Luo MD Work Phone: [facility] 11-26-2023 11:15-0500 Respiratory rate 22 /min Emil Luo MD Work Phone: [facility] 11-26-2023 11:15-0500 SaO2% (BldA) [Mass fraction] 97 % Emil Luo MD Work Phone: [facility] 11-26-2023 11:15-0500 Systolic blood pressure 120 mm[Hg] Emil Luo MD Work Phone: [facility] 09-21-2023 15:52-0500 Body temperature 97.39 [degF] Chen Souza APRN.CNP Work Phone: [facility] 09-21-2023 15:52-0500 Body weight 134.63 kg Chen Souza POCKETBOOK MAKER.BUILDING SPECIALIST Work Phone: [facility] 09-21-2023 15:52-0500 Diastolic blood pressure 90 mm[Hg] Chen Harley POCKETBOOK MAKER.BUILDING SPECIALIST Work Phone: [facility] 09-21-2023 15:52-0500 Heart rate 89 /min Chen Souza POCKETBOOK MAKER.BUILDING SPECIALIST Work Phone: [facility] 09-21-2023 15:52-0500 Respiratory rate 26 /min Chen Souza POCKETBOOK MAKER.BUILDING SPECIALIST Work Phone: [facility] 09-21-2023 15:52-0500 SaO2% (BldA) [Mass fraction] 96 % Chen Souza POCKETBOOK MAKER.BUILDING SPECIALIST Work Phone: [facility] 09-21-2023 15:52-0500 Systolic blood pressure 139 mm[Hg] Chen Souza POCKETBOOK MAKER.BUILDING SPECIALIST Work Phone: [facility] 06-29-2023 13:52-0400 Body weight 137.89 kg Malika Sethi POCKETBOOK MAKER.BUILDING SPECIALIST Work Phone: [facility] 06-29-2023 13:52-0400 Diastolic blood pressure 70 mm[Hg] Malika Romerof POCKETBOOK MAKER.BUILDING SPECIALIST Work Phone: [facility] 06-29-2023 13:52-0400 Heart rate 80 /min Malika Romerof POCKETBOOK MAKER.BUILDING SPECIALIST Work Phone: [facility] 06-29-2023 13:52-0400 Respiratory rate 16 /min Malika Meadowshof POCKETBOOK MAKER.BUILDING SPECIALIST Work Phone: [facility] 06-29-2023 13:52-0400 SaO2% (BldA) [Mass fraction] 97 % Malika Romerof POCKETBOOK MAKER.BUILDING SPECIALIST Work Phone: [facility] 06-29-2023 13:52-0400 Systolic blood pressure 110 mm[Hg] Malika Meadowshof POCKETBOOK MAKER.BUILDING SPECIALIST Work Phone: [facility] 12-06-2022 15:01-0500 Diastolic blood pressure 78 mm[Hg] [facility] 12-06-2022 15:01-0500 Heart rate 81 /min [facility] 12-06-2022 15:01-0500 Respiratory rate 16 /min [facility] 12-06-2022 15:01-0500 SaO2% (BldA) [Mass fraction] 98 % [facility] 12-06-2022 15:01-0500 Systolic blood pressure 135 mm[Hg] [facility] 12-06-2022 11:19-0500 Body height 180.34 cm [facility] 12-06-2022 11:19-0500 Body mass index (BMI) [Ratio] 40.1 kg/m2 [facility] 12-06-2022 11:19-0500 Body temperature 97.4 [degF] [facility] 12-06-2022 11:19-0500 Body weight 130.4 kg [facility] Encounters Encounter Date Encounter Type Care Provider Facility Start: 08-18-2025 End: 08-18-2025 Emergency department patient visit Americo Borrego Facility:[facility] Start: 07-06-2025 End: 07-06-2025 Emergency department patient visit Dr. Melissa Holly DO -Emergency Department Work Phone: Start: 06-13-2025 End: 06-14-2025 Refill Americo Borrego MD Work Phone: [address] [place] [address] Comment on above: Refill Request Start: 04-12-2025 End: 04-12-2025 Office outpatient visit 25 minutes Americo Borrego MD Work Phone: [facility] Comment on above: Type 2 diabetes shashank itus with hyperglycemia, with long-term current use of insulin (HCC) (Primary Dx); Depression, unspecified depression type; Mild asthma without complication, unspecified whether persistent (HCC); Hyperlipidemia, unspecified hyperlipidemia type; Obstructive sleep apnea treated with BiPAP; Essential hypertension Start: 04-12-2025 End: 04-12-2025 ambulatory AMERICO BORREGO Facility:[facility] Start: 04-06-2025 End: 04-06-2025 ambulatory AMERICO BORREGO Facility:[facility] Start: 01-08-2025 End: 01-08-2025 ambulatory [facility] Facility:[facility] Start: 01-08-2025 End: 01-08-2025 Office outpatient [...] Start: 12-22-2024 End: 12-22-2024 [facility] Start: 12-10-2024 End: 01-24-2025 Telephone encounter Dean Goldberg APRN.CNP Work Phone: Administration Comment on above: Medication Problem ( Med Refills) Start: 09-28-2024 End: 09-28-2024 Refill Americo Borrego MD Work Phone: Family Medicine [place] Comment on above: Refill Request Start: 09-12-2024 End: 09-12-2024 ambulatory Gem Perez RN [facility] Start: 09-12-2024 End: 09-12-2024 Patient encounter procedure Gem Perez RN [facility] Comment on above: TYLER SCHAEFER RN ( Medication Adherence Review at request of payer) Start: 08-27-2024 End: 08-27-2024 Telephone encounter Americo Borrego MD Work Phone: Family [facility] Comment on above: Medication Problem Start: 08-24-2024 End: 08-24-2024 ambulatory AMERICO BORREGO Facility:[facility] Start: 08-24-2024 End: 08-24-2024 Patient encounter [...] unspecified whether persistent; Coronary artery disease involving [place] coronary artery of [place] heart without angina pectoris; Obstructive sleep apnea treated with BiPAP; Essential hypertension Start: 08-22-2024 End: 08-22-2024 ambulatory Malu Tirado MA [facility] Start: 08-22-2024 End: 08-22-2024 Patient encounter procedure Malu Tirado MA [facility] Comment on above: Population Health Na vigation Outreach ([facility] WORK[facility]ENCD[facility]irdre [place] PCSA) Start: 08-11-2024 End: 08-11-2024 ambulatory [facility] Facility:[facility] Start: 06-06-2024 End: 06-06-2024 Refill Americo Borrego MD Work Phone: [facility] [place] Comment on above: Refill Request Start: 05-22-2024 End: 05-22-2024 ambulatory [facility] Facility:[facility] Start: 05-22-2024 End: 05-22-2024 Patient encounter procedure Americo Borrego MD Work Phone: [facility] [place] Comment on above: Hospital discharge f ollow-up (Primary Dx); Type 2 diabetes mellitus without complication, unspecified whether usp insulin use (HCC); Essential hypertension; Hyperlipidemia, unspecified hyperlipidemia type; Depression, unspecified depression type; FAISAL (generalized anxiety disorder); Mild intermittent asthma without complication; Chronic obstructive pulmonary disease, unspecified COPD type (HCC); Gastroesophageal reflux disease, unspecified whether esophagitis present; History of ileostomy; Encounter for screening examination for other mental health and behavioral disorders Start: 05-14-2024 End: 05-14-2024 ambulatory [facility] Facility:[facility] Start: 05-14-2024 End: 05-14-2024 Patient encounter procedure Matilde Gan APRN.CNP Work Phone: [facility] Comment on above: Left lower quadrant abdominal pain (Primary Dx) Start: 05-09-2024 End: 05-09-2024 ambulatory AMERICO BORREGO Facility:[facility] Start: 03-23-2024 Refill Americo walls MD Work Phone: [facility] Comment on above: Refill Request Start: 02-29-2024 Telephone encounter Margarita Moctezuma patti [facility] Work Phone: [facility] Comment on above: Appointment Start: 02-21-2024 Telephone encounter Kandace Bello send [facility] Comment on above: NEW PRIMARY CARE PHA RMACY APPT Start: 02-20-2024 End: 02-20-2024 Patient encounter procedure Americo Borrego MD Work Phone: [facility] Comment on above: Type 2 diabetes shashank itus without complication, unspecified whether computer terminal operator insulin use (HCC) (Primary Dx); Essential hypertension; [...] 01-29-2024 End: 01-29-2024 Emergency department patient visit [facility] Work Phone: Start: 01-25-2024 Refill Americo walls MD Work Phone: [facility] Comment on above: Refill Request Start: 11-30-2023 Refill Americo walls MD Work Phone: [facility] Comment on above: Refill Request Start: 11-26-2023 End: 11-26-2023 Patient encounter procedure Emil Luo MD Work Phone: [facility] Comment on above: Asthma with COPD wit h exacerbation (HCC) (HCC) (Primary Dx) Refill Request Start: 11-21-2023 Telephone encounter Americo springer MD Work Phone: Family [facility] [place] Comment on above: Excuse from Jury Dut y- Letter Start: 09-21-2023 End: 09-21-2023 Subsequent hospital visit by physician Dve[facility] [place] Work Phone: Radiology Comment on above: SOB (shortness of br eath) [R06.02] Start: 09-21-2023 End: 09-21-2023 Patient encounter procedure Chen Souza APRN.BUILDING SPECIALIST Work Phone: [facility] Comment on above: SOB (shortness of br eath) (Primary Dx); COPD with exacerbation (HCC) Start: 08-24-2023 Telephone encounter Americo springer MD Work Phone: [facility] [place] Comment on above: chest cold Refill Request Start: 06-29-2023 End: 06-29-2023 Patient encounter procedure Malika Sethi APRN.BUILDING SPECIALIST Work Phone: [facility] [place] Comment on above: Type 2 diabetes shashank itus without complication, unspecified whether computer terminal operator insulin use (HCC) (Primary Dx); Essential hypertension; Hyperlipidemia, unspecified hyperlipidemia type; Depression, unspecified depression type; FAISAL (generalized anxiety disorder); Chronic obstructive pulmonary disease, unspecified COPD type (HCC); Gastroesophageal reflux disease, unspecified whether esophagitis present; Obstructive sleep apnea treated with BiPAP; Encounter for screening for lung cancer Start: 06-24-2023 Refill Americo walls MD Work Phone: Family [facility] [place] Comment on above: Refill Request Start: 06-16-2023 Telephone encounter Americo springer MD Work Phone: [facility] Comment on above: Medication Problem Start: 04-25-2023 Refill Americo walls MD Work Phone: [facility] [place] Comment on above: Refill Request Start: 12-25-2022 Refill Americo walls MD Work Phone: [facility] [place] Comment on above: Refill Request Start: 12-06-2022 End: 12-06-2022 Emergency department patient [facility] Start: 11-26-2022 Refill Dean RIVERA RN.BUILDING SPECIALIST Work Phone: LAB [facility] Comment on above: Refill Request Start: 07-09-2022 Refill Americo walls MD Work Phone: Family [facility] Comment on above: Refill Request; Refi ll Request Start: 07-04-2022 Refill Dean RIVERA RN.BUILDING SPECIALIST Work Phone: [facility] Comment on above: Refill Request Start: 06-30-2022 Telephone encounter Americo springer MD Work Phone: [facility] Comment on above: Insurance Authorizat ion ([employer] HFA) Start: 06-28-2022 Telephone encounter Americo springer MD Work Phone: Family [facility] Comment on above: Rx refill; not on cu rrent med list Start: 06-02-2022 Telephone encounter Americo springer MD Work Phone: [facility] Comment on above: Patient Update (Plea se fill his inhaler as soon as possible, ); Patient Question Start: 01-07-2022 End: 01-07-2022 ambulatory Americo Borrego MD Work Phone: [facility] Comment on above: Chronic obstructive pulmonary disease with acute exacerbation (HCC) (Primary Dx) Start: 01-07-2022 End: 01-07-2022 Telemedicine consultation with patient Americo Borrego MD Work Phone: [facility] Start: 01-04-2022 Telephone encounter Americo springer MD Work Phone: [facility] Comment on above: Question Procedures Date Procedure Procedure Detail Performing Clinician Start: 07-06-2025 Radiologic exam ches t [address] Americo Borrego MD Work Phone: Start: 01-29-2024 SARS-CoV-2, Influenz a & RSV (PCR) Start: 01-29-2024 Plain chest X-ray Start: 09-21-2023 Radiologic exam ches t 2 views Chen Harley POCKETBOOK MAKER.BUILDING SPECIALIST Work Phone: Start: 11-02-2019 Colonoscopy Americo pulido MD Work Phone: H/O: ileostomy History of ileostomy Americo Borrego MD Work Phone: H/O: ileostomy History of ileostomy Americo Borrego MD Work Phone: H/O: ileostomy History of ileostomy Americo Borrego MD Work Phone: Plan of Treatment Date Care Activity Detail Author Start: 05-16-2031 Urine microalbumin profile [facility] Start: 11-02-2029 Colonoscopy COLONOSCOPY [facility] Start: 11-02-2029 COLORECTAL CANCER SCREENING COLORECTAL CANCER SCREENING [facility] Start: 11-02-2029 Screening for malignant neoplasm of colon [facility] Start: 04-12-2026 Annual PCP Team Chronic Disease Visit Annual PCP Team Chronic Disease Visit [facility] Start: 04-12-2026 Pneumococcal Vaccine: 50+ (2 of 2 - PCV) Pneumococcal Vaccine: 50+ (2 of 2 - PCV) [facility] Comment on above: Postponed from 11/13/2020 (Declined at t his time) Start: 04-06-2026 Hepatitis B surface antibody level LDL Cholesterol [facility] Start: 02-09-2026 Prostate Cancer Screening Discussion Prostate Cancer Screening Discussion [facility] Start: 02-09-2026 Prostate specific antigen measurement Prostate Cancer Screening Discussion [facility] Start: 01-08-2026 Annual PCP Team Chronic Disease Visit Annual PCP Team Chronic Disease Visit [facility] Start: 12-22-2025 Hepatitis B surface antibody level LDL Cholesterol [facility] Start: 12-16-2025 End: 12-16-2025 Patient encounter procedure 12/16/2025 4:20 PM EST Office Visit Family [facility] [address] [place] [id number] Danielle Cedillo MD [address] [place] [id number] 6 month f/u Family [facility] Comment on above: 6 month f/u Start: 10-24-2025 Glaucoma screening Dilated Retinal Exam [facility] Start: 10-06-2025 Hemoglobin A1c measurement HbA1C [facility] Start: 08-24-2025 Annual PCP Team Chronic Disease Visit Annual PCP Team Chronic Disease Visit [facility] Start: 08-24-2025 BP Controlled (<130/80) BP Controlled (<130/80) [facility] Start: 08-24-2025 Covid-19 Vaccine () Covid-19 Vaccine () [facility] Comment on above: Postponed from 06/17/2024 (Declined at t his time) Start: 07-16-2025 End: 07-16-2025 Patient encounter procedure 07/16/2025 11:00 AM EDT Office Visit Family Magalie Martinez [address] [place] [address] Americo Borrego MD [address] [place] [address] 3 month follow up Family [facility] Comment on above: 3 month follow up Start: 07-13-2025 End: 10-12-2025 Comprehensive metabolic 2000 panel - Serum or Plasma COMPREHENSIVE METABOLIC PANEL Lab Routine Hyperlipidemia, unspecified hyperlipidemia type Type 2 diabetes mellitus with hyperglycemia, with long-term current use of insulin (HCC) Essential hypertension Expected: 07/13/2025 (Approximate), Expires: 10/12/2025 [facility] Work Phone: Comment on above: Expected: 07/13/2025 (Approximate), Expi res: 10/12/2025 Start: 07-13-2025 End: 10-12-2025 Hemoglobin A1c in Blood HEMOGLOBIN A1C Lab Routine Type 2 diabetes mellitus with hyperglycemia, with long-term current use of insulin (HCC) Expected: 07/13/2025 (Approximate), Expires: 10/12/2025 [facility] Comment on above: Expected: 07/13/2025 (Approximate), Expi res: 10/12/2025 Start: 07-13-2025 End: 10-12-2025 Lipid 1996 panel - Serum or Plasma LIPID PANEL, FASTING Lab Routine Hyperlipidemia, unspecified hyperlipidemia type Type 2 diabetes mellitus with hyperglycemia, with long-term current use of insulin (HCC) Essential hypertension Expected: 07/13/2025 (Approximate), Expires: 10/12/2025 [facility] Comment on above: Expected: 07/13/2025 (Approximate), Expi res: 10/12/2025 Start: 06-17-2025 Influenza vaccination [facility] Start: 05-22-2025 Annual PCP Team Chronic Disease Visit Annual PCP Team Chronic Disease Visit [facility] Start: 05-22-2025 Anxiety Screening Anxiety Screening [facility] Start: 05-22-2025 BP Controlled (<130/80) BP Controlled (<130/80) [facility] Start: 05-14-2025 BP Controlled (<130/80) BP Controlled (<130/80) [facility] Start: 05-09-2025 Hepatitis B screening Urine Albumin:Creatinine Ratio [facility] Start: 05-09-2025 Hepatitis B surface antibody level LDL Cholesterol [facility] Start: 04-15-2025 [facility] Comment on above: Postponed from 06/17/2024 (Declined at t his time) Start: 04-12-2025 End: 04-12-2025 Patient encounter procedure 04/12/2025 11:40 AM EDT Office Visit Family Medicine [facility] [address] [place], [place] [id number] Americo Borrego MD [address] [place], [place] [id number] 3 mo f/u Family [facility] [place] Comment on above: 3 mo f/u Start: 04-10-2025 End: 07-10-2025 Comprehensive metabolic 2000 panel - Serum or Plasma COMPREHENSIVE METABOLIC PANEL Lab Routine Type 2 diabetes mellitus without complication, unspecified whether computer terminal operator insulin use (HCC) Hyperlipidemia, unspecified hyperlipidemia type Expected: 04/10/2025 (Approximate), Expires: 07/10/2025 [facility] Work Phone: Comment on above: Expected: 04/10/2025 (Approximate), Expi res: 07/10/2025 Start: 04-10-2025 End: 07-10-2025 Hemoglobin A1c in Blood HEMOGLOBIN A1C Lab Routine Type 2 diabetes mellitus without complication, unspecified whether computer terminal operator insulin use (HCC) Expected: 04/10/2025 (Approximate), Expires: 07/10/2025 [facility] Comment on above: Expected: 04/10/2025 (Approximate), Expi res: 07/10/2025 Start: 04-10-2025 End: 07-10-2025 Lipid 1996 panel - Serum or Plasma LIPID PANEL, FASTING Lab Routine Type 2 diabetes mellitus without complication, unspecified whether computer terminal operator insulin use (HCC) Hyperlipidemia, unspecified hyperlipidemia type Expected: 04/10/2025 (Approximate), Expires: 07/10/2025 [facility] Comment on above: Expected: 04/10/2025 (Approximate), Expi res: 07/10/2025 Start: 03-24-2025 Hemoglobin A1c measurement HbA1C [facility] Start: 02-19-2025 Annual PCP Team Chronic Disease Visit Annual PCP Team Chronic Disease Visit [facility] Start: 02-19-2025 BP Controlled (<130/80) BP Controlled (<130/80) [facility] Start: 02-19-2025 Covid-19 Vaccine () Covid-19 Vaccine () [facility] Comment on above: Postponed from 06/17/2023 (Declined at t his time) Start: 01-15-2025 Hepatitis B surface antibody level LDL Cholesterol [facility] Start: 11-29-2024 End: 11-29-2024 Patient encounter procedure 11/29/2024 11:00 AM EST Office Visit Family Magalie [facility] [address] [place] [address] Malika Sethi, POCKETBOOK MAKER.BUILDING SPECIALIST [address] [place] [address] 3 month follow up Family Medicine [place] Comment on above: 3 month follow up Start: 11-24-2024 End: 02-23-2025 CBC W Auto Differential panel - Blood COMPLETE BLOOD COUNT AND DIFFERENTIAL Lab Routine Gastroesophageal reflux disease, unspecified whether esophagitis present Hyperlipidemia, unspecified hyperlipidemia type Coronary artery disease involving [place] coronary artery of [place] heart without angina pectoris Expected: 11/24/2024 (Approximate), Expires: 02/23/2025 [facility] Comment on above: Expected: 11/24/2024 (Approximate), Expi res: 02/23/2025 Start: 11-24-2024 End: 02-23-2025 Comprehensive metabolic 2000 panel - Serum or Plasma COMPREHENSIVE METABOLIC PANEL Lab Routine Hyperlipidemia, unspecified hyperlipidemia type Type 2 diabetes mellitus with hyperglycemia, with long-term current use of insulin (HCC) Expected: 11/24/2024 (Approximate), Expires: 02/23/2025 [facility] Comment on above: Expected: 11/24/2024 (Approximate), Expi res: 02/23/2025 Start: 11-24-2024 End: 02-23-2025 Hemoglobin A1c in Blood HEMOGLOBIN A1C Lab Routine Type 2 diabetes mellitus with hyperglycemia, with long-term current use of insulin (HCC) Expected: 11/24/2024 (Approximate), Expires: 02/23/2025 [facility] Comment on above: Expected: 11/24/2024 (Approximate), Expi res: 02/23/2025 Start: 11-24-2024 End: 02-23-2025 Lipid 1996 panel - Serum or Plasma LIPID PANEL BASIC Lab Routine Hyperlipidemia, unspecified hyperlipidemia type Expected: 11/24/2024 (Approximate), Expires: 02/23/2025 [facility] Work Phone: Comment on above: Expected: 11/24/2024 (Approximate), Expi res: 02/23/2025 Start: 11-11-2024 Hemoglobin A1c measurement HbA1C [facility] Start: 10-17-2024 Medicare Advantage Annual Wellness Visit Medicare Advantage Annual Wellness Visit [facility] Start: 09-03-2024 End: 09-03-2024 Patient encounter procedure 09/03/2024 1:45 PM EST Office Visit [facility] [address] [place] [id number] Mia Pollack, OD [address] [place] [address] Type 2 diabetes mellitus without complication, unspecified whether usp insulin use (HCC) [E11.9] Ophthalmology Comment on above: Type 2 diabetes mellitus without complic ation, unspecified whether computer terminal operator insulin use (HCC) [E11.9] Start: 08-24-2024 End: 08-24-2024 Patient encounter procedure [facility] Comment on above: 3 mo f/u A1c Start: 08-22-2024 End: 11-21-2024 CBC panel - Blood by Automated count COMPLETE BLOOD COUNT Lab Routine Essential hypertension Expected: 08/22/2024 (Approximate), Expires: 11/21/2024 [facility] Comment on above: Expected: 08/22/2024 (Approximate), Expi res: 11/21/2024 Start: 08-22-2024 End: 11-21-2024 Comprehensive metabolic 2000 panel - Serum or Plasma COMPREHENSIVE METABOLIC PANEL Lab Routine Type 2 diabetes mellitus without complication, unspecified whether usp insulin use (HCC) Essential hypertension Expected: 08/22/2024 (Approximate), Expires: 11/21/2024 [facility] Comment on above: Expected: 08/22/2024 (Approximate), Expi res: 11/21/2024 Start: 08-22-2024 End: 11-21-2024 Hemoglobin A1c in Blood HEMOGLOBIN A1C Lab Routine Type 2 diabetes mellitus without complication, unspecified whether usp insulin use (HCC) Expected: 08/22/2024 (Approximate), Expires: 11/21/2024 [facility] Work Phone: Comment on above: Expected: 08/22/2024 (Approximate), Expi res: 11/21/2024 Start: 08-14-2024 End: 08-14-2024 Patient encounter procedure 08/14/2024 10:00 AM EDT Office Visit [facility] [address] [place] [address] Mia Pollack, OD [address] [place] [address] Type 2 diabetes mellitus without complication, unspecified whether computer terminal operator insulin use (HCC) [E11.9] Ophthalmology Comment on above: Type 2 diabetes mellitus without complic ation, unspecified whether computer terminal operator insulin use (HCC) [E11.9] Start: 08-09-2024 Hemoglobin A1c measurement HbA1C [facility] Start: 06-29-2024 Annual PCP Team Chronic Disease Visit Annual PCP Team Chronic Disease Visit [facility] Start: 06-29-2024 BP Controlled (<130/80) BP Controlled (<130/80) [facility] Start: 06-29-2024 Hepatitis B Vaccine (1 of 3 - 19+ 3-dose series) Hepatitis B Vaccine (1 of 3 - 19+ 3-dose series) [facility] Comment on above: Postponed from 1987 (Declined at t his time) Start: 06-29-2024 Hepatitis B Vaccine (1 of 3 - 3-dose series) Hepatitis B Vaccine (1 of 3 - 3-dose series) [facility] Comment on above: Postponed from 1968 (Declined at t his time) Start: 06-29-2024 Shingrix Vaccine (1 of 2) Shingrix Vaccine (1 of 2) [facility] Comment on above: Postponed from 2018 (Declined at t his time) Start: 06-17-2024 Covid-19 Vaccine ( season) Covid-19 Vaccine ( season) [facility] Start: 06-17-2024 Covid-19 Vaccine ( season) Covid-19 Vaccine ( season) [facility] Start: 06-17-2024 Influenza vaccination [facility] Start: 05-22-2024 End: 08-21-2024 Comprehensive metabolic 2000 panel - Serum or Plasma COMPREHENSIVE METABOLIC PANEL Lab Routine Type 2 diabetes mellitus without complication, unspecified whether computer terminal operator insulin use (HCC) Essential hypertension Hyperlipidemia, unspecified hyperlipidemia type Expected: 05/22/2024 (Approximate), Expires: 08/21/2024 [facility] Work Phone: Comment on above: Expected: 05/22/2024 (Approximate), Expi res: 08/21/2024 Start: 05-22-2024 End: 08-21-2024 Hemoglobin A1c in Blood HEMOGLOBIN A1C Lab Routine Type 2 diabetes mellitus without complication, unspecified whether usp insulin use (HCC) Expected: 05/22/2024 (Approximate), Expires: 08/21/2024 [facility] Comment on above: Expected: 05/22/2024 (Approximate), Expi res: 08/21/2024 Start: 05-22-2024 End: 08-21-2024 Lipid 1996 panel - Serum or Plasma LIPID PANEL BASIC Lab Routine Type 2 diabetes mellitus without complication, unspecified whether usp insulin use (HCC) Essential hypertension Hyperlipidemia, unspecified hyperlipidemia type Expected: 05/22/2024 (Approximate), Expires: 08/21/2024 [facility] Comment on above: Expected: 05/22/2024 (Approximate), Expi res: 08/21/2024 Start: 05-22-2024 End: 08-21-2024 Microalbumin/Creatinin e [Mass Ratio] in Urine ALBUMIN/CREATININE RATIO, URINE Lab Routine Type 2 diabetes mellitus without complication, unspecified whether computer terminal operator insulin use (HCC) Essential hypertension Expected: 05/22/2024 (Approximate), Expires: 08/21/2024 [facility] Comment on above: Expected: 05/22/2024 (Approximate), Expi res: 08/21/2024 Start: 05-22-2024 End: 05-22-2024 Patient encounter procedure Pulmonary Medicine Comment on above: Encounter for screening for lung cancer [Z12.2] 3 mo f/u Start: 05-22-2024 End: 05-22-2024 ambulatory [facility] Comment on above: Encounter for screening for lung cancer [Z12.2] Start: 04-16-2024 Hemoglobin A1c measurement HbA1C [facility] Start: 04-15-2024 Influenza [facility] Comment on above: Postponed from 06/17/2023 (Declined at t his time) Start: 03-30-2024 Hepatitis B surface antibody level LDL CHOLESTEROL [facility] Start: 03-29-2024 ANNUAL PCP TEAM CHRONIC DISEASE VISIT ANNUAL PCP TEAM CHRONIC DISEASE VISIT [facility] Start: 03-29-2024 COVID-19 VACCINE (#1) COVID-19 VACCINE (#1) [facility] Comment on above: Postponed from 1968 (Declined at t his time) Start: 02-22-2024 End: 02-22-2024 ambulatory 02/22/2024 9:45 AM EDT Procedure [facility] [address] [place] [address] Wstr, Pulm Lab [facility] [address] [place] [address] Chronic obstructive pulmonary disease, unspecified COPD type (HCC) [J44.9] [facility] Comment on above: Chronic obstructive pulmonary disease, u nspecified COPD type (HCC) [J44.9] Start: 01-29-2024 [facility] Start: 12-23-2023 Hemoglobin A1c measurement HbA1C [facility] Start: 09-28-2023 End: 11-28-2023 Comprehensive metabolic 2000 panel - Serum or Plasma COMP METABOLIC PANEL Lab Routine Type 2 diabetes mellitus without complication, unspecified whether computer terminal operator insulin use (HCC) Expected: 09/28/2023, Expires: 11/28/2023 [facility] Work Phone: Comment on above: Expected: 09/28/2023, Expires: Start: 09-28-2023 End: 11-28-2023 Hemoglobin A1c in Blood HGB A1C Lab Routine Type 2 diabetes mellitus without complication, unspecified whether computer terminal operator insulin use (HCC) Expected: 09/28/2023, Expires: 11/28/2023 [facility] Work Phone: Comment on above: Expected: 09/28/2023, Expires: Start: 09-22-2023 Hemoglobin A1c/Hemoglobin.total in Blood HBA1C [facility] Start: 06-30-2023 Hemoglobin A1c/Hemoglobin.total in Blood HBA1C [facility] Start: 06-17-2023 Covid-19 Vaccine ( season) Covid-19 Vaccine () [facility] Start: 06-17-2023 Influenza vaccination INFLUENZA (#1) [facility] Start: 01-07-2023 ANNUAL PCP TEAM CHRONIC DISEASE VISIT ANNUAL PCP TEAM CHRONIC DISEASE VISIT [facility] Start: 12-25-2022 End: 02-24-2023 CBC panel - Blood by Automated count CBC Lab Routine Essential hypertension Expected: 12/25/2022 (Approximate), Expires: 02/24/2023 [facility] Work Phone: Comment on above: Expected: 12/25/2022 (Approximate), Expi res: 02/24/2023 Start: 12-25-2022 End: 02-24-2023 Comprehensive metabolic 2000 panel - Serum or Plasma COMP METABOLIC PANEL Lab Routine Hyperlipidemia, unspecified hyperlipidemia type Controlled type 2 diabetes mellitus without complication, with long-term current use of insulin (HCC) Essential hypertension Expected: 12/25/2022 (Approximate), Expires: 02/24/2023 [facility] Work Phone: Comment on above: Expected: 12/25/2022 (Approximate), Expi res: 02/24/2023 Start: 12-25-2022 End: 02-24-2023 Hemoglobin A1c in Blood HGB A1C Lab Routine Controlled type 2 diabetes mellitus without complication, with long-term current use of insulin (HCC) Expected: 12/25/2022 (Approximate), Expires: 02/24/2023 [facility] Work Phone: Comment on above: Expected: 12/25/2022 (Approximate), Expi res: 02/24/2023 Start: 12-25-2022 End: 02-24-2023 Lipid 1996 panel - Serum or Plasma LIPID PANEL BASIC Lab Routine Hyperlipidemia, unspecified hyperlipidemia type Controlled type 2 diabetes mellitus without complication, with long-term current use of insulin (HCC) Essential hypertension Expected: 12/25/2022 (Approximate), Expires: 02/24/2023 [facility] Work Phone: Comment on above: Expected: 12/25/2022 (Approximate), Expi res: 02/24/2023 Start: 09-08-2022 Hepatitis B surface antibody level LDL CHOLESTEROL [facility] Start: 06-17-2022 Influenza vaccination INFLUENZA (#1) [facility] Start: 04-15-2022 Influenza vaccination INFLUENZA (#1) [facility] Comment on above: Postponed from 06/17/2021 (Declined at t his time) Start: 04-06-2022 Glaucoma screening Dilated Retinal Exam [facility] Start: 04-06-2022 Hepatitis C antibody, confirmatory test DILATED RETINAL EXAM [facility] Start: 12-09-2021 Hemoglobin A1c/Hemoglobin.total in Blood HBA1C [facility] Start: 11-13-2020 PNEUMOCOCCAL (2 - PCV) PNEUMOCOCCAL (2 - PCV) [facility] Start: 01-28-2021 Pneumococcal vaccination [facility] Start: 11-13-2020 Pneumococcal Vaccine: 50+ (2 of 2 - PCV) Pneumococcal Vaccine: 50+ (2 of 2 - PCV) [facility] Start: 07-29-2019 Hepatitis B screening URINE ALBUMIN:CREATININE RATIO [facility] Start: 2018 Influenza vaccination LUNG CANCER SCREENING [facility] Start: 2018 Screening for malignant neoplasm of lung Lung Cancer Screening [facility] Start: 2018 SHINGRIX VACCINE (1 of 2) SHINGRIX VACCINE (1 of 2) [facility] Start: 12-05-2015 3 comp foot exam completed DIABETIC FOOT EXAM [facility] Start: 12-05-2015 Diabetic foot examination Diabetic Foot Exam [facility] Start: 06-28-2014 FECAL OCCULT BLOOD FECAL OCCULT BLOOD [facility] Start: 06-28-2014 Screening for malignant neoplasm of colon Fecal Occult Blood [facility] Start: 2013 COLOGUARD (FIT-DNA) COLOGUARD (FIT-DNA) [facility] Start: [address] COLONOGRAPHY [facility] Start: 2013 Screening for malignant neoplasm of colon [facility] Start: 2013 SIGMOIDOSCOPY SIGMOIDOSCOPY [facility] Start: 1998 Zoledronic acid therapy ALPHA-1 ANTITRYPSIN DEFICIENCY SCREENING [facility] Start: 1987 Hepatitis B Vaccine (1 of 3 - 19+ 3-dose series) Hepatitis B Vaccine (1 of 3 - 19+ 3-dose series) [facility] Start: 1986 Anxiety Screening Anxiety Screening [facility] Start: 1986 BP CONTROLLED (<130/80) BP CONTROLLED (<130/80) [facility] Start: 1973 COVID-19 VACCINE (1) COVID-19 VACCINE (1) [facility] Start: 1968 COVID-19 VACCINE (#1) COVID-19 VACCINE (#1) [facility] Start: 1968 HEPATITIS B (1 of 3 - 3-dose series) HEPATITIS B (1 of 3 - 3-dose series) [facility] COVID & INFLUENZA A/ B & RSV NAAT, ROUTINE COVID & INFLUENZA A/B & RSV NAAT, ROUTINE Microbiology Routine Asthma with COPD with exacerbation (HCC) (HCC) Ordered: 11/26/2023 [facility] Work Phone: Comment on above: Ordered: 11/26/2023 Patient Education [facility] Work Phone: Patient referral [facility] Work Phone: End: 03-21-2025 SPIROMETRY - BASELINE AND POST DILATOR SPIROMETRY - BASELINE AND POST DILATOR PFT Routine Chronic obstructive pulmonary disease, unspecified COPD type (HCC) 1 Occurrences starting 02/20/2024 until 03/21/2025 [facility] Comment on above: 1 Occurrences starting 02/20/2024 until 03/21/2025 [facility] Immunization Date Immunization Notes Care Provider Fa ciliamee 05-16-2021 tetanus toxoid, redu bianca diphtheria toxoid, and acellular pertussis vaccine, adsorbed Americo Borrego MD Work Phone: [facility] Work Phone: 11-13-2019 pneumococcal polysaccharide vaccine, 23 valent Americo Borrego MD Work Phone: [facility] 07-31-2018 influenza virus vacc ine, unspecified formulation Malika Sethi APRN.CNP Work Phone: [facility] 07-30-2011 influenza virus vacc ine, unspecified formulation Americo Borrgeo MD Work Phone: [facility] Work Phone: 11-23-2010 pneumococcal polysaccharide vaccine, 23 valent Americo Borrego MD Work Phone: [facility] 11-23-2010 pneumococcal vaccine , unspecified formulation [facility] 08-11-2010 influenza virus vacc ine, unspecified formulation Americo Borrego MD Work Phone: [facility] Work Phone: 07-12-2009 influenza virus vacc ine, unspecified formulation Americo Borrego MD Work Phone: [facility] Work Phone: 08-11-2008 influenza virus vacc ine, unspecified formulation Americo Borrego MD Work Phone: [facility] Work Phone: 08-11-2008 pneumococcal polysaccharide vaccine, 23 valent Americo Borrego MD Work Phone: [facility] Work Phone: 05-02-2006 tetanus and diphther ia toxoids, adsorbed, preservative free, for adult use (2 Lf of tetanus toxoid and 2 Lf of diphtheria toxoid) Americo Borrego MD Work Phone: [facility] 10-17-2005 tetanus toxoid, adsorbed Dahlia Borrego MD Work Phone: [facility] Work Phone: Payers Date Payer Category Payer Self-pay [id number] 2025 Unknown [id number] 2025 [facility] Health [facility] [id number] 2023 Medicare (Managed Care) [id number] 2023 Unknown [id number] 2022 Medicare [id number] 2022 Medicaid [id number] 2019 Medicaid [employer] [facility] MEDICAID [id number] 2019-Present [phone] [address] [place] [address] Medicaid [id number] 2019 Medicaid [id number] 2016 Unknown [id number] Medicare [id number] Unknown [facility] [id number] Unknown [id number] Unknown [id number] Social History Date Type Detail Facility Start: 05-07-2015 End: 07-06-2025 Tobacco smoking status NHIS Ex-smoker [facility] Start: 1983 End: 04-02-2015 History of tobacco use Current smoker [facility] Start: 1983 End: 04-02-2015 History of tobacco use Cigarette Smoker [facility] Start: 05-07-2015 End: 03-29-2023 Cigarettes smoked current (pack per day) - Reported 1.5 [facility] Start: 05-07-2015 End: 08-24-2024 Tobacco use and exposure User of smokeless tobacco [facility] History of tobacco use Chews Tobacco [facility] Start: 09-09-2021 End: 04-12-2025 Alcohol intake Current non-drinker of alcohol (finding) [facility] Start: 01-07-2022 History SDOH Housing Unable to Pay 3 [facility] Start: 12-08-2015 End: 03-29-2023 Tobacco Comment Both parents smoked in childhood. Lived with smokers as adult. No one in current home currently smokes. [facility] Start: 1970 Sex Assigned At Male C [facility] Start: 12-28-2021 End: 01-07-2022 Exposure to SARS-CoV-2 (event) Not sure [facility] Start: 12-06-2022 End: 01-29-2024 Tobacco smoking status NHIS Unknown if ever smoked [facility] Start: 08-06-2019 Rare [facility] Start: 08-06-2019 None [facility] Start: 08-06-2019 Spouse/ Signif icant Other [facility] Start: 08-06-2019 Non-smoker [facility] Start: 01-07-2022 End: 03-29-2023 Tobacco use panel [facility] Start: 09-17-2012 National Score (1-10 0), lower number is lower risk 47 [facility] Start: 04-30-2020 Gender identity Identifies as male gender (finding) [facility] Start: 04-30-2020 Sexual orientation Heterosexual (fin ding) [facility] Are you now , , , , never or living with a partner? Refused [facility] (I/We) worried venkatesh er (my/our) food would run out before (I/we) got money to buy more. DK or Refused [facility] Medical Equipment Procedure Code Equipment Code Equipment Original Text Equipment Identifier Dates [id number], [id number], [id number], [id number] Start: 06-12-2021 End: 04-12-2025 Comment on above: [...] serious difficulty hearing No 11/13/2019 1:30 PM hSun Ceron RN No [facility] 11-13-2019 Are you blind, or do you have serious difficulty seeing, even when wearing glasses No 11/13/2019 1:30 PM Shun Ceron RN No [facility] 11-13-2019 Do you have serious difficulty walking or climbing stairs No 11/13/2019 1:30 PM Shun Ceron RN No [facility] 11-13-2019 Do you have difficul ty dressing or bathing No 11/13/2019 1:30 PM Shun Ceron RN No [facility] 11-13-2019 Because of a physica l, mental, or emotional condition, do you have difficulty doing errands alone such as visiting a physician's office or shopping No 11/13/2019 1:30 PM Shun Ceron RN No [facility] Mental Status Date Assessment Result Facility 11-13-2019 Because of a physica l, mental, or emotional condition, do you have serious difficulty concentrating, remembering, or making decisions No 11/13/2019 1:30 PM Shun Ceron RN No [facility] Clinical Notes 11-12-2019 to 07-06-2025 Note Date & Type Note Facility 07-06-2025 Discharge summary [facility] 07-06-2025 Radiology Diagnostic study note [facility] Imaging Services [address] [place] [id number] Chest PA and Lateral MR#: [id number] Acct: [id number] Name: ELIEL SOUZA Rep #: [id number] : 1970 M 55 From: Ronni Archuleta MD PCP: Dr. Americo Borrego MD Status: RE G ER Study:Chest PA and Lateral Date of Exam: 07/06/25 Exam# [id number] Ordering Dr: Deena Holly DO PROCEDURE: CHEST [...] - Other findings discussed above. Reading Location: [id number] CC: Dr. Melissa Holly DO; Dr. Americo Borrego MD ~ Engineering Psychologist: Signed [facility] 07-06-2025 Discharge summary Note Date/Time July 06, 2025 6:11pm [facility] Medical Records Department [address] [place] [address] Emergency Department Summary 07/06/25 MR#: [id number] Acct: [id number] Name: ELIEL SOUZA Rep #:[id number] : 1970 55 From: Melissa Ba PCP: [...] complaints or concerns per at this time. [facility] Medical History Diverticulitis Femur fracture Rib fracture H. pylori infection Cholecystitis Fatty liver Depression BPH (benign prostatic hyperplasia) DVT (deep venous thrombosis) GERD (gastroesophageal reflux disease) Diverticula of colon HTN (hypertension) COPD (chronic obstructive pulmonary disease) Diabetes mellitus Home Medications ?Medication ?Instructions ?Recorded ?Last Taken ?Type albuterol sulfate 2.5 mg/3 mL 2.5 mg inhalation Q6H RI N PRN Sob 01/03/16 11/18/16 04:00 History [...] - Other findings discussed above. Reading Location: [id number] Rhythm Strip Rhythm Strip: Sinus Rhythm Rate: [...] Referrals: Americo Borrego MD [Primary Care Provider, [facility]] Activity Restrictions/Additional Instructions: Use your nebulizer [...] is causing a COPD exacerbation Print Language: Kazakh Disposition Disposition: Home, Self Care What to do if you have Problems For any increased pain, shortness of breath, bleeding, nausea or vomiting, chestpain, or any unexpected problems, contact your Primary Care Provider. Call [facility] ([phone]) or report to the closest Emergency Room. Call 911 if necessary. 07/06/25 1811 <Electronically signed by Melissa Holly DO> Cosigner Signature (if applicable): CC: Dr. Americo Borrego MD ~ Signed [facility] Work Phone: [phone] 771-660908-29-2025 Telephone encounter Note* Telephone Encounter - Americo Borrego MD - 06/14/2025 8:35 AM EDT OK to refill as ordered Americo Borrego MD [facility]08-29-2025 Miscellaneous Notes* Telephone Encounter - Americo Borrego [...] 13, 2025 12:01 PM documented in this encounterA[facility]08-28-2025 Telephone encounter Note * Telephone Encounter - [...] Franca Sheets June 13, 2025 12:01 PM [facility]2025 History of Present illness Narrative* Americo Borrego [...] tx as needed. Not following with any mask designer's. Does get Shortness of Breath if he [...] HISTORY Diagnosis Date CAD (coronary artery disease), [place] coronary artery 2014 No PCI indicated. no die out worker needed Closed fracture of femur ([facility]) 11/2010 Depressive disorder, not elsewhere classified Diabetes mellitus type 2 in obese DVT of lower extremity (deep venous thrombosis) ([facility]) 11/2010 left Esophageal reflux Essential hypertension CATY (obstructive sleep apnea) CPAP needs another sleep study machine set too high Pelvic fracture ([facility]) Seasonal allergic rhinitis Unspecified asthma(493.90) [...] Follow up in 3 months Recording using ApplyMap software for draft documentation of the visit was discussed with the patient/authorized medicare sales representative; all questions welcomed and answered. Patient/authorized medicare sales representative agreed to proceed I agree with the Chief Complaint, ROS, and Past Histories independently gathered by the clinical application support analyst and the remaining scribed note [...] AM. Zulma Gloria MA documented in this encounterAdena Fayette [facility] Center2025 NoteHNO ID: [id number] Author: AMERICO BORREGO MD Service: ? Author [...] tx as needed. Not following with any mask designer's. Does get Shortness of Breath if he [...] HISTORY Diagnosis Date CAD (coronary artery disease), [place] coronary artery 2014 No PCI indicated. no die out worker needed Closed fracture of femur ([facility]) 11/2010 Depressive disorder, not elsewhere classified Diabetes mellitus type 2 in obese DVT of lower extremity (deep venous thrombosis) ([facility]) 11/2010 left Esophageal reflux Essential hypertension CATY (obstructive sleep apnea) CPAP needs another sleep study machine set too high Pelvic fracture ([facility]) Seasonal allergic rhinitis Unspecified asthma(493.90) [...] strip Test blood sugar(s) (more content not included)...[facility]03-25-2025 History of Present illness Narrative* Americo Borrego [...] HISTORY Diagnosis Date CAD (coronary artery disease), [place] coronary artery 2014 No PCI indicated. no die out worker needed Closed fracture of femur ([facility]) 11/2010 Depressive disorder, not elsewhere classified Diabetes mellitus type 2 in obese DVT of lower extremity (deep venous thrombosis) ([facility]) 11/2010 left Esophageal reflux Essential [...] 12/22/2024 2.93 Monocytes % 12/22/2024 6.1 Abs [place] 12/22/2024 0.46 Eosinophils % 12/22/2024 5.3 Abs [...] Moderate Americo Borrego MD documented in this encounterAdena Fayette [facility] Center03-25-2025 NoteHNO ID: [id number] Author: AMERICO BORREGO MD Service: ? Author [...] HISTORY Diagnosis Date CAD (coronary artery disease), [place] coronary artery 2014 No PCI indicated. no die out worker needed Closed fracture of femur ([facility]) 11/2010 Depressive disorder, not elsewhere classified Diabetes mellitus type 2 in obese DVT of lower extremity (deep venous thrombosis) ([facility]) 11/2010 left Esophageal reflux Essential hypertension CATY (obstructive sleep apnea) CPAP needs another sleep study machine set too high Pelvic fracture ([facility]) Seasonal allergic rhinitis Unspecified asthma(493.90) Diagnosed in 20s. Previous Surgical History PAST SURGICAL HISTORY Procedure Laterality Date COLONOSCOPY FLX DX W/COLLJ SPEC WHEN PFRMD 11/04/10 Normal colon COLONOSCOPY FLX DX W/COLLJ SPEC WHEN PFRMD 01/21/16 few diverticula EGD TRANSORAL BIOPSY SINGLE/MULTIPLE 11/04/10 duodenitis EGD TRANSORAL BIOPSY SINGLE/MULTIPLE 01/21/16 minimal gastritis EXC TUMOR [facility]ATH,PERCUTANEOUS 2013 Cardiac cath, [...] as needed for (more content not included)... [facility]02-24-2025 Telephone encounter Note* Telephone Encounter - Dean Goldberg APRN.CNP - 12/10/2024 1:37 PM EST Does he need albuterol nebulizer solution or inhaler? What was the name of the third medication that he was requesting? Dean Goldberg APRN.CNP [facility]02-24-2025 Miscellaneous Notes* Telephone Encounter - Dean Goldberg [...] that in his records. documented in this encounterAdena Fayette [facility] Center02-24-2025 Telephone encounter Note * Telephone Encounter - Brendon Villareal - 12/10/2024 1:34 PM EST Patient called asking for medication refills. Mentioned Albuterol and Lisinopril. Also mentioned one other but I could not find that in his records. [facility]12-13-2024 Telephone encounter Note* Telephone Encounter - Dean [...] 1/2 hr before meal. Dean Goldberg APRN.CNP [facility]12-13-2024 Miscellaneous Notes* Telephone Encounter - Dean Goldberg [...] 28, 2024 11:43 AM documented in this encounterAdena Fayette Medical Center12-13-2024 Telephone encounter Note * Telephone Encounter - [...] Ashley Sheets September 28, 2024 11:43 AM [facility]11-27-2024 NoteHNO ID: [id number] Author: GEM PEREZ RN Service: ? Author [...] was due for refill on 07/27/24 at [facility] [place] [facility] LISINOPRIL TAB 20MG is due for refill on 09/26/24 at [facility] [employer] [place] [facility] Lisinopril refilled 09/28. Call placed to patient on 09/1824 regarding Atorvastatin. Has not been refilled. NALM. Patient Attributed To: QAE Payer: [employer] Action Taken: Data submitted to SlickLogin message to patient Contact made with patient: No, Chart review only. Signature: Gem Perez RNMem[facility]11-27-2024 History of Present illness Narrative* Gme Perez RN - 09/12/2024 9:29 AM EST ACM SILVANO RN Reason for review or outreach: Medication Adherence review per request of payer Medication Adherence Review Details: Cholesterol and Hypertension FYI / ACTION REQUEST: Patient identified by name and date of Summary/Findings of review: ATORVASTATIN TAB 40MG was due for refill on 07/27/24 at [facility] [employer] [place] [facility] LISINOPRIL TAB 20MG is due for refill on 09/26/24 at [facility] [employer] [place] [facility] Patient Attributed To: QAE Payer: [employer] Action Taken: Data submitted to SlickLogin message to patient Contact made with patient: No, Chart review only. Signature: Gem Perez RN documented in this encounterAdena Fayette Medical Center11-27-2024 NotePatient Outreach (NETNAV) ELIEL SOUZA ([id number]) 1970 M Date Time Provider Department 09/12/24 [...] was due for refill on 07/27/24 at [facility] [place] [facility] LISINOPRIL TAB 20MG is due for refill on 09/26/24 at [facility] [place] [facility] Lisinopril refilled 09/28. Call placed to patient on 09/1824 regarding Atorvastatin. Has not been refilled. NALM. Patient Attributed To: HANNAH Payer: [employer] Action Taken: Data submitted to PrivacyProtectorer Restaro message to patient Contact made with patient: [...] with hyperglycemia, wi* Coronary artery disease involving [place]*07/05/2014 Obstructive sleep apnea treated with BiPAP [G47*07/05/2014 COPD with exacerbation (HCC) [J44.1] 02/25/2015 Essential hypertension [I10] 08/07/2015 LLQ abdominal pain [R10.32] (more content not included)...[facility]11-11-2024 Telephone encounter Note* Telephone Encounter - Americo Borrego MD - 08/27/2024 6:11 PM EST Jaylin ordered Americo Borrego MD [facility]11-11-2024 Miscellaneous Notes* Telephone Encounter - Americo Borrego MD - 08/27/2024 6:11 PM EST Jaylin ordered Americo Borrego MD * Telephone Encounter - Mary Jane Wade RN - 08/27/2024 1:25 PM EST Phong, pharmacist @ [facility] calling to let provider know that Levemir has been discontinued. He is asking for new script for alternative. He mentioned Tresiba, Lantus. Please review and advise. Mary Jane Wade RN documented in this encounterAdena Fayette Medical Center11-11-2024 Telephone encounter Note * Telephone Encounter - Mary Jane Wade RN - 08/27/2024 1:25 PM EST Phong, pharmacist @ [facility] calling to let provider know that Levemir has been discontinued. He is asking for new script for alternative. He mentioned Tresiba, Lantus. Please review and advise. Mary Jane Wade RN [facility]11-08-2024 History of Present illness Narrative* Americo Borrego [...] does get some anxiety when [place]. His chest gets a [...] HISTORY Diagnosis Date CAD (coronary artery disease), [place] coronary artery 2014 No PCI indicated. no die out worker needed Closed fracture of femur ([facility]) 11/2010 Depressive disorder, not elsewhere classified Diabetes mellitus type 2 in obese DVT of lower extremity (deep venous thrombosis) ([facility]) 11/2010 left Esophageal reflux Essential hypertension CATY (obstructive sleep apnea) CPAP needs another sleep study machine set too high Pelvic fracture ([facility]) Seasonal allergic rhinitis Unspecified asthma(493.90) [...] with Pulm 7. Coronary artery disease involving [place] coronary artery of [place] heart without angina pectoris- ICD9: 414.01, ICD10: [...] Past Histories independently gathered by the clinical application support analyst and the remaining scribed note [...] AM. Zulma Gloria MA documented in this encounterAdena Fayette Medical Center11-08-2024 NoteHNO ID: [id number] Author: AMERICO BORREGO MD Service: ? Author [...] does get some anxiety when driving to [place] on the highways. His chest gets a [...] HISTORY Diagnosis Date CAD (coronary artery disease), [place] coronary artery 2014 No PCI indicated. no die out worker needed Closed fracture of femur ([facility]) 11/2010 Depressive disorder, not elsewhere classified Diabetes mellitus type 2 in obese DVT of lower extremity (deep venous thrombosis) ([facility]) 11/2010 left Esophageal reflux Essential hypertension CATY (obstructive sleep apnea) CPAP needs another sleep study machine set too high Pelvic fracture ([facility]) Seasonal allergic rhinitis Unspecified asthma(493.90) Diagnosed in 20s. Previous Surgical History PAST SURGICAL HISTORY Procedure Laterality Date COLONOSCOPY FLX DX W/COLLJ SPEC WHEN PFRMD 11/04/10 Normal colon COLONOSCOPY FLX DX W/COLLJ SPEC WHEN PFRMD 01/21/16 few diverticula EGD TRANSORAL BIOPSY SINGLE/MULTIPLE 11/04/10 duodenitis EGD TRANSORAL BIOPSY SINGLE/MULTIPLE 01/21/16 minimal gastritis EXC TUMOR [facility],PERCUTANEOUS 2013 Cardiac cath, [...] times daily. Dx: Typ (more content not included)...[facility] 08-22-2024 NoteHNO ID: [id number] Author: MALU TIRADO MA Service: ? Author Type: Stem Threshing Machine Operator Type: Progress Notes Filed: 08/22/2024 13:07 Note Text: POPULATION HEALTH NAVIGATION OUTREACH Action/FYI INVALID NUMBER [employer] MESSAGE SENT ANNUAL MEDICARE WELLNESS CHRIS FLU Reason for Outreach Care Gap/HCC or Scheduling Wellness Visits Care Gaps due: Medicare Annual Wellness Visit Diabetic Eye Exam Flu Vaccine Patient Contacted: Unable or unnecessary to reach patient: Unable to leave message Restaro message sent Navigation Signature: Malu Tirado MA August 22, 2024 7:57 [facility]11-06-2024 History of Present illness Narrative* Malu Tirado MA - 08/22/2024 7:57 AM EST POPULATION HEALTH NAVIGATION OUTREACH Action/FYI INVALID NUMBER [employer] MESSAGE SENT ANNUAL MEDICARE WELLNESS CHRIS FLU Reason for Outreach Care Gap/HCC or Scheduling Wellness Visits Care Gaps due: Medicare Annual Wellness Visit Diabetic Eye Exam Flu Vaccine Patient Contacted: Unable or unnecessary to reach patient: Unable to leave message Restaro message sent Navigation Signature: Malu Tirado MA August 22, 2024 7:57 AM documented in this encounterAdena Fayette Medical Center11-06-2024 NotePatient Outreach (NETNAV) ELIEL SOUZA ([id number]) 1970 M Date Time Provider Department 08/22/24 MALU TIRADO NETKATHARINE During your visit today, we recorded the following information about you: Malu Tirado MA 08/22/2024 1:07 PM Signed POPULATION HEALTH NAVIGATION OUTREACH Action/I INVALID NUMBER [employer] MESSAGE SENT ANNUAL MEDICARE WELLNESS CHRIS FLU Reason for Outreach Care Gap/HCC or Scheduling Wellness Visits Care Gaps due: Medicare Annual Wellness Visit Diabetic Eye Exam Flu Vaccine Patient Contacted: Unable or unnecessary to reach patient: Unable to leave message Restaro message sent Navigation Signature: Malu Tirado MA August 22, 2024 7:57 AM Allergies As of Date: 08/22/2024 (No Known Allergies) Date Reviewed: 05/22/2024 Reviewed by: Lluvia Bright MA - Fully Assessed Reason for Visit: Population Health Navigation Outreach [3910] Cmt: [facility] WORKBENCDeirdre MARTINEZ PCSA Prescriptions as of 08/22/2024 [...] with hyperglycemia, wi* Coronary artery disease involving [place]*07/05/2014 Obstructive sleep apnea treated with BiPAP [...] 05/03/2020 Hydrocele [N43.3] 09/03/2020 (more content not included)...[facility]08-21-2024 Telephone encounter Note* Telephone Encounter - Malika Sethi APRN.BUILDING SPECIALIST - 06/06/2024 3:02 PM EDT The following approved medication requests have been transmitted electronically. Requested Prescriptions Pending Prescriptions Disp Refills insulin detemir U-100 (LEVEMIR FLEXTOUCH U-100 INSULIN) 100 unit/mL (3 mL) injection pen 10 Each 5 Sig: Inject 40 Units subcutaneously two times a day. Malika Sethi APRN.GISSELL [facility]08-21-2024 Miscellaneous Notes* Telephone Encounter - Malika Sethi [...] boxes.Pended. Last ov: 05-22-24 documented in this encounterAdena Fayette Medical Center08-21-2024 Telephone encounter Note * Telephone Encounter - Lizzette Garcia RN - 06/06/2024 11:07 AM EDT MANOJ Martinez, maria g pcp sent Rx for Levemir to dispense 8 each. States each box has 5 pens and they cannot split up the box. Asking if pcp can send Rx to read 10 pens and they will dispense 2 boxes.Pended. Last ov: 05-22-24 [facility]08-06-2024 Instructions* Patient Instructions* Americo Borrego MD - 05/22/2024 10:00 AM EDT Decrease Levemir insulin to 40 units twice daily Decrease Humalog to 20 units with dinner documented in this encounterAdena Fayette Medical Center08-06-2024 History of Present illness Narrative* Americo Borrego MD - 05/22/2024 9:40 AM EDT Chief Complaint Patient presents with: F/U 3 Month HPI Eliel Souza is a 53 year old male who presents here today for 3 month follow up. Has handicap placard due to COPD/Asthma causing SOB. No bowel, gi, or urinary issues. Hx of Ileostomy. Was seen at [facility] ED on 05/14/24 for abdominal pain.Has hx [...] left worse. Taking Jardiance 10 mg daily, Jirmdyw49 units BID, and Humalog 30 units PM. [...] as needed. 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 no die out worker needed 11/2010: Closed fracture of femur [...] 2 diabetes mellitus without complication, unspecified whether computer terminal operator insulin use (HCC) -ICD9: 250.00, ICD10: E11.9 [...] Moderate Americo Borrego MD documented in this encounterAdena Fayette Medical Center08-06-2024 NoteHNO ID: [id number] Author: AMERICO BORREGO MD Service: ? Author Type: Physician Type: Progress Notes Filed: 05/22/2024 11:48 Note Text: Chief Complaint Patient presents with: F/U 3 Month HPI Eliel Souza is a 53 year old male who presents here today for 3 month follow up. Has handicap placard due to COPD/Asthma causing SOB. No bowel, gi, or urinary issues. Hx of Ileostomy. Was seen at [facility] ED on 05/14/24 for abdominal pain. Has [...] as needed. 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 no die out worker needed 11/2010: Closed fracture of femur [...] Puffs as instructed every (more content not included)...[facility]07-29-2024 NoteHNO ID: [id number] Author: MATILDE GAN APRN.BUILDING SPECIALIST Service: ? Author Type: Nurse Practitioner Type: Progress Notes Filed: 05/14/2024 14:30 Note Text: This note was created using [employer] Financial Technologiesriter. Subjective Eliel Souza is a 53 year [...] going to an emergency room. Matilde Gan APRN.[facility]07-29-2024 History of Present illness Narrative* Matilde [...] going to an emergency room. Matilde Gan APRN.BUILDING SPECIALIST documented in this encounterAdena Fayette Medical Center06-07-2024 Telephone encounter Note * Telephone Encounter - Americo Borrego MD - 03/23/2024 3:06 PM EDT OK to refill as ordered Americo Borrego MD [facility]06-07-2024 Miscellaneous Notes* Telephone Encounter - Americo Borrego [...] Thank you. Gaviota Higgins. documented in this encounterAdena Fayette Medical Center06-07-2024 Telephone encounter Note * Telephone Encounter - [...] 05/22/2024 Please advise. Thank you. Gaviota Higgins. [facility]05-15-2024 Telephone encounter Note* Telephone Encounter - Margarita Valles RP - 02/29/2024 1:43 PM EDT Patient recently referred to PharmD team by PCP. PSS unable to reach after several attempts. Calledpatient again and unable to reach. Forwarding to PCP as FYI that unable to schedule patient for initial PharmD visit. Margarita Valles PharmD, [facility] Clinical Pharmacist [facility] Work Phone: 1(711) 153-356705-15-2024 Miscellaneous Notes* Telephone Encounter - Margarita Valles RPh - 02/29/2024 1:43 PM EDT Patient recently referred to PharmD team by PCP. PSS unable to reach after several attempts. Calledpatient again and unable to reach. Forwarding to PCP as FYI that unable to schedule patient for initial PharmD visit. Margarita Valles PharmD, [facility] Primary Care Clinical Pharmacist documented in this encounterAdena Fayette Medical Center05-08-2024 Telephone encounter Note * Telephone Encounter - Kandace Alicea PSS - 02/22/2024 9:04 AM EDT Telephoned the patient to schedule a new Primary Care pharmacy appt. Left a message. Made two attempts to contact the patient. Patient has not returned the call. If the patient returns a call, an appt will be scheduled. Encounter routed to the clinical pharmacist. [facility]05-08-2024 Miscellaneous Notes* Telephone Encounter - Kandace Alicea [...] appt. Left a message. documented in this encounterAdena Fayette Medical Center05-07-2024 Telephone encounter Note * Telephone Encounter - Kandace Alicea PSS - 02/21/2024 2:10 PM EDT Telephoned the patient to schedule a new Primary Care pharmacy appt. Left a message. [facility]05-06-2024 History of Present illness Narrative* Americo Borrego MD - 02/20/2024 12:40 PM EDT Chief Complaint Patient presents with: F/U 6 Month HPI Eliel Souza is a 53 year old male who presents here today for a 6 month follow up. Pt here today for his routine follow up and lab review. Pt seen at [facility] ED on 01/29/24 for a cough. GI/Uro [...] HISTORY Diagnosis Date CAD (coronary artery disease), [place] coronary artery 2014 No PCI indicated. no die out worker needed Closed fracture of femur (HCC) 11/2010 Depressive disorder, not elsewhere classified Diabetes mellitus type 2 in obese (HCC) ([facility]) DVT of lower extremity (deep venous thrombosis) ([facility]) 11/2010 left Esophageal reflux Essential hypertension CATY (obstructive sleep apnea) CPAP needs another sleep study machine set too high Pelvic fracture ([facility]) Seasonal allergic rhinitis Unspecified asthma(493.90) [...] 2 diabetes mellitus without complication, unspecified whether computer terminal operator insulin use (HCC) -ICD9: 250.00, ICD10: E11.9 [...] Past Histories independently gathered by the clinical application support analyst and the remaining scribed note [...] PM. Lluvia Bright MA documented in this encounterAdena Fayette Medical Center04-14-2024 Discharge summary Author Bruce Dong [facility] January 29, 2024 2:44am Note Date/Time January 29, 2024 12: 55am [facility] Medical Records Department [address] [place] [address] Emergency Department Summary 01/29/24 MR#: [id number] Acct: [id number] Name: ELIEL SOUZA Rep #:[id number] : 1970 53 From: Bruce Dong DO [...] ox was 95% on room air [facility] Medical History BPH (benign prostatic hyperplasia) [...] (Auto) 46.1 L Lymph % (Auto) 39.1 [place] % (Auto) 7.4 Eos % (Auto) 4.7 [...] 2:17 EDT Reading Location ID and State: [facility] / [place] Tel , Service support , 2 view [...] problems, contact your Primary Care Provider. Call [employer] Registry ([phone]) or report to the closest Emergency Room. Call 911 if necessary. 01/29/24 0244 <Electronically signed by Bruce Dong DO> Cosigner Signature (if applicable): CC: Dr. Americo Borrego MD ~ Signed [facility] Work Phone: 1(933) 581-190704-10-2024 Miscellaneous Notes* Telephone Encounter - Dean Goldberg APRN.GISSELL - 01/25/2024 2:43 PM EDT The following approved medication requests have been transmitted electronically. Requested Prescriptions Pending Prescriptions Disp Refills albuterol HFA (PROVENTIL HFA, VENTOLIN HFA) 90 mcg/actuation inhaler 1 Each 0 Sig: Inhale 2 Puffs as instructed every 4 hours as needed for wheezing/shortness of breath. Dean Goldberg APRN.BUILDING SPECIALIST * Telephone Encounter - Rhona Cardoza LPN [...] Thank you. Victoria Lancaster. documented in this encounterAdena Fayette Medical Center02-14-2024 Miscellaneous Notes* Telephone Encounter - Malika Sethi [...] Thank you. Annalise Sheets. documented in this encounterAdena Fayette Medical Center02-12-2024 Miscellaneous Notes* Telephone Encounter - Malika Sethi [...] name and date of : Yes, [facility] for [facility](s): Requested Prescriptions [...] Thank you. Malika Patterson. documented in this encounterAdena Fayette Medical Center02-10-2024 History of Present illness Narrative* Emil Luo [...] onsetfever. Emil Luo MD documented in this encounterAdena Fayette Medical Center02-06-2024 Miscellaneous Notes* Telephone Encounter - Lluvia Bright Ma - 11/22/2023 8:17 AM EST Call to pt and notified him that letter has been written and is available for sweet pickled fruit maker today at Medical Records after 12:00 pm. Letter forwarded to Medical Records. Lluvia Bright Ma * Telephone Encounter - Americo Borrego MD - 11/21/2023 7:33 PM EST Letter done Americo Borrego MD * Telephone Encounter - Franca Goode RN - 11/21/2023 2:25 PM EST Pt reports he received a letter for upcoming jury duty at the [facility] [address]. Asking if PCP would write a letter excusing him from jury duty due to his GI history and use of bathroom frequently. Patient would like called once letter is ready for sweet pickled fruit maker, if provider agreeable to completing letter. Franca Goode, RN documented in this encounterAdena Fayette Medical Center12-06-2023 History of Present illness Narrative* Samina Cruz [...] 21, 2023 4:06 PM documented in this encounterAdena Fayette Medical Center12-06-2023 History of Present illness Narrative* Chen Souza APRN.BUILDING SPECIALIST - 09/21/2023 3:53 PM EST This note was created using [employer] Financial Technologiesriter. Subjective Eliel Souza is a 53 year [...] - AZITHROMYCIN 250 MG TABLET Chen Souza APRN.BUILDING SPECIALIST documented in this encounterAdena Fayette Medical Center11-08-2023 Miscellaneous Notes* Telephone Encounter - Ayse Lawrence [...] notify patient. Mandi Sheets documented in this encounterAdena Fayette Medical Center11-08-2023 Miscellaneous Notes* Telephone Encounter - Mary Jane [...] calling: self Call patient at: at home [phone] (home) Was an appointment scheduled: No Patient said he has COPD. Said he has a chest cold and Dr. Borrego usually prescribes prednisonewhen he gets a chest cold. Would like direction. Closing statement: Symptom Call: Thank you for calling [facility], your call is very important. A nurse will call in approximately 2-4 hours during business hours. If this is an emergency, please contact 911. Mandi Sheets documented in this encounterAdena Fayette Medical Center09-13-2023 Instructions* Patient Instructions* Malika Sethi APRN.BUILDING SPECIALIST - 06/29/2023 2:06 PM EDT Start Jardiance [...] sugar level consistently (80-130) documented in this encounterAdena Fayette Medical Center09-13-2023 History of Present illness Narrative* Malika Sethi [...] HISTORY Diagnosis Date CAD (coronary artery disease), [place] coronary artery 2014 No PCI indicated. no die out worker needed Closed fracture of femur ([facility]) 11/2010 Depressive disorder, not elsewhere classified Diabetes mellitus type 2 in obese ([facility]) DVT of lower extremity (deep venous thrombosis) ([facility]) 11/2010 left Esophageal reflux Essential hypertension CATY (obstructive sleep apnea) CPAP needs another sleep study machine set too high Pelvic fracture ([facility]) Seasonal allergic rhinitis Unspecified asthma(493.90) [...] 2 diabetes mellitus without complication, unspecified whether computer terminal operator insulin use (HCC) -ICD9: 250.00, ICD10: E11.9 [...] APRN.CNP This note was partially generated using [employer] voice recognition system. Note was reviewed for accuracy. There may be minor misspellings or grammar miscues with [employer] voice recognition. documented in this encounterAdena Fayette Medical Center09-08-2023 Miscellaneous Notes* Telephone Encounter - Dean Goldberg [...] notify patient. Deyanira Bazzi documented in this encounterAdena Fayette Medical Center08-31-2023 Miscellaneous Notes* Telephone Encounter - Lluvia Bright [...] or jardiance please send to pharmacy/ [facility] [place] for next RX pick-up. Please notify patient of provider response, phone number [phone] Patient has been identified by name and birthdate. Person calling: self Call patient at: on cell [phone] (home) [phone] (cell) Was an appointment scheduled: No Closing statement: Results or non-symptom based questions: Thank you for calling [facility], your call will be returned within the next business day. Victoria Lancaster documented in this encounterAdena Fayette Medical Center07-10-2023 Miscellaneous Notes* Telephone Encounter - Americo Borrego [...] notify patient. Deyaniracristóbal Bazzi documented in this encounterAdena Fayette Medical Center03-17-2023 Miscellaneous Notes* Telephone Encounter - Zulma Gloria [...] advise. Manjula Sterlingkirstin Sheets documented in this encounterAdena Fayette Medical Center02-20-[address] Whiteside [facility] December 06, 2022 2:25pm Note Date/Time December 06, 2022 12:02pm [facility] Medical Records Department [address] [place] [address] Emergency Department Summary 12/06/22 MR#: [id number] Acct: [id number] Name: ELIEL SOUZA Rep #:[id number] : 1970 52 From: Sameer Whiteside MD [...] Prior similar symptoms: Yes [facility] Medical History (Updated 12/06/22 @ 14:24 [...] 73.9 H Lymph % (Auto) 12.2 L [place] % (Auto) 11.6 H Eos % (Auto) [...] follows: Interpretation: Sinus Rhythm (Rate is 90. [place] to the right. RI intervalis under 68 ms. QRS duration 98 [...] your Primary Care Provider. Call [facility] ([phone]) or report to the closest Emergency Room. Call 911 if necessary. 12/06/22 1425 <Electronically signed by Sameer Whiteside MD> Cosigner Signature (if applicable): CC: Dr. Americo Borrego MD ~ Signed [facility] Work Phone: 1(958) 672-582602-10-2023 Miscellaneous Notes* Telephone Encounter - Americo Borrego MD - 11/26/2022 4:30 PM EST OK to refill as ordered Americo Borrego MD * Telephone Encounter - Lluvia Bright Ma - 11/26/2022 4:25 PM EST Last OV: 01/07/22 virtually. Next OV: None Last Rx: 11/03/21 #45 w/11. Lluvia Bright Ma documented in this encounterAdena Fayette Medical Center09-23-2022 Miscellaneous Notes* Telephone Encounter - Malika Sethi [...] you. Aide Chamberlain RN documented in this encounterAdena Fayette Medical Center09-23-2022 Miscellaneous Notes* Telephone Encounter - Aide Chamberlain [...] 1:18 PM EDT Office received fax from [employer] for Prior Auth of pt's rescue inhaler. Pt currently being prescribed ProAir HFA 90 mcg and PA is required. Inhalers that do not require Authorization are: Albuterol Sulfate HFA Levalbuterol Tartrate Ventolin HFA. Lluvia Bright Ma documented in this encounterAdena Fayette Medical Center09-19-2022 Miscellaneous Notes* Telephone Encounter - Zulma Gloria [...] advise. Rhona Cardoza LPN documented in this encounterAdena Fayette Medical Center09-13-2022 Miscellaneous Notes* Telephone Encounter - Zulma Gloria Ma - 06/29/2022 9:16 AM EDT Pt notified of results via [employer]. Zulma Gloria Ma * Telephone Encounter - Cyndi Ayala MA - 06/28/2022 2:33 PM EDT Unable to reach patient. Left VM to return call to office. Please read below and advise. yCndi Ayala MA * Telephone Encounter - Dean Goldberg APRN.BUILDING SPECIALIST - 06/28/2022 2:24 PM EDT Patient has [...] does need increased. [facility] [place]. documented in this encounterAdena Fayette Medical Center08-17-2022 Miscellaneous Notes* Telephone Encounter - Avelina Sweet Ma - 06/02/2022 2:34 PM EDT Spoke to spouse who advised patient has no issue with any brand and aware has to take whatever insurance gives. [facility] advised [facility] ready for sweet pickled fruit maker so not sure what issue is. Spoke [...] a hard time. Patient phone number is [phone] He uses the [facility] in [place] documented in this encounterAdena Fayette Medical Center03-24-2022 Nurse Note* Lluvia Bright Ma - 01/07/2022 2:49 PM EDT Pt requested parking placard be mailed to home address. This has been completed. Lluvia Bright Ma documented in this encounterAdena Fayette Medical Center03-24-2022 History of Present illness Narrative* Americo Borrego [...] HISTORY Diagnosis Date CAD (coronary artery disease), [place] coronary artery 2014 No PCI indicated. no die out worker needed Closed fracture of femur (HCC) 11/2010 Depressive disorder, not elsewhere classified Diabetes mellitus type 2 in obese (HCC) DVT of lower extremity (deep venous thrombosis) ([facility]) 11/2010 left Esophageal reflux Essential [...] Past Histories independently gathered by the clinical application support analyst and the remaining scribed note accurately describes my personal service to the patient. Americo Borrego MD The documentation for this note was completed by Lluvia Bright Ma acting as scribe for Americo Borrego MD. January 07, 2022 2:36 PM. Lluvia Bright Ma documented in this encounterAdena Fayette Medical Center03-24-2022 Miscellaneous Notes* Telephone Encounter - Lluvia Bright [...] possible [facility] to [facility] [place]. Ashley Umana Pss documented in this encounterAdena Fayette Medical Center01-27-2020 History of Past illness Narrative* Problem Noted [...] of this encounter (statuses as of 01/07/2022) [facility]01[facility] History of Past illness Narrative* Problem Noted [...] of this encounter (statuses as of 01/07/2022) [facility] History of Past illness Narrative* Problem Noted [...] of this encounter (statuses as of 06/02/2022) [facility] History of Past illness Narrative* Problem Noted [...] of this encounter (statuses as of 06/29/2022) [facility]01[facility] History of Past illness Narrative* Problem Noted [...] of this encounter (statuses as of 07/05/2022) [facility] of Past illness Narrative* Problem Noted [...] of this encounter (statuses as of 07/09/2022) [facility] of Past illness Narrative* Problem Noted [...] of this encounter (statuses as of 10/17/2022) [facility] of Past illness Narrative* Problem Noted [...] of this encounter (statuses as of 11/26/2022) [facility]01[facility] History of Past illness Narrative* Problem Noted [...] of this encounter (statuses as of 12/31/2022) [facility] History of Past illness Narrative* Problem Noted [...] of this encounter (statuses as of 04/25/2023) [facility] History of Past illness Narrative* Problem Noted [...] of this encounter (statuses as of 06/17/2023) [facility] History of Past illness Narrative* Problem Noted [...] of this encounter (statuses as of 06/24/2023) [facility] History of Past illness Narrative* Problem Noted [...] of this encounter (statuses as of 06/30/2023) [facility] History of Past illness Narrative* Problem Noted [...] of this encounter (statuses as of 08/25/2023) [facility] of Past illness Narrative* Problem Noted [...] of this encounter (statuses as of 08/25/2023) [facility] of Past illness Narrative* Problem Noted [...] of this encounter (statuses as of 09/22/2023) [facility] of Past illness Narrative* Problem Noted [...] of this encounter (statuses as of 11/22/2023) [facility] History of Past illness Narrative* Problem Noted [...] of this encounter (statuses as of 11/26/2023) [facility] History of Past illness Narrative* Problem Noted [...] of this encounter (statuses as of 12/17/2023) [facility] History of Past illness Narrative* Problem Noted [...] of this encounter (statuses as of 01/26/2024) [facility] History of Past illness Narrative* Problem Noted [...] complication, unspecified whether usp insulin use (HCC) documented in this encounter [facility] noteNo assessment information availableWOhioHealth Van [facility] Work Phone: Evaluation note* Diagnosis Hyperlipidemia, unspecified hyperlipidemia type- Primary Controlled type 2 diabetes mellitus without complication, with long-term current use of insulin (HCC) Essential hypertension Unspecified essential hypertension documented in this encounter [facility] note* Diagnosis Type 2 diabetes mellitus without complication, unspecified whether computer terminal operator insulin use (HCC) documented in this encounter [facility] note* Diagnosis Type 2 diabetes mellitus without complication, unspecified whether computer terminal operator insulin use (HCC)- Primary Essential hypertension Unspecified [...] 2 diabetes mellitus without complication, unspecified whether computer terminal operator insulin use (HCC) documented in this encounter [...] (HCC) Thrombocytopenia, unspecified [facility] Diagnosis Essential hypertension Unspecified essential hypertension documented in this encounter [facility] note* Diagnosis Left lower quadrant abdominal pain- Primary documented in this encounter [facility] note* Diagnosis Hospital discharge follow-up- Primary Other follow-up examination Type 2 diabetes mellitus without complication, unspecified whether computer terminal operator insulin use (HCC) Essential hypertension Unspecified essential [...] not elsewhere classified Coronary artery disease involving [place] coronary artery of [place] heart Hyponatremia Hyposmolality and/or hyponatremia Hypophosphatemia Disorders [...] complication, unspecified whether usp insulin use (HCC) documented in this encounter [...] not elsewhere classified Coronary artery disease involving [place] coronary artery of [place] heart Hyponatremia Hyposmolality and/or hyponatremia Hypophosphatemia Disorders [...] Shortness of breath [facility]* Diagnosis COPD with exacerbation ([facility])- Primary Obstructive chronic bronchitis with [...] not elsewhere classified Coronary artery disease involving [place] coronary artery of [place] heart Hyponatremia Hyposmolality and/or hyponatremia Hypophosphatemia Disorders [...] hyperglycemia, with long-term current use of insulin ([facility])- Primary Depression, unspecified depression type Gastroesophageal reflux disease, unspecified whether esophagitis present Hyperlipidemia, unspecified hyperlipidemia type Chronic obstructive pulmonary disease, unspecified COPD type (HCC) Mild asthma without complication, unspecified whether persistent Coronary artery disease involving [place] coronary artery of [place] heart without angina pectoris Obstructive sleep apnea [...] not elsewhere classified Coronary artery disease involving [place] coronary artery of [place] heart Hyponatremia Hyposmolality and/or hyponatremia Hypophosphatemia Disorders [...] without complication, unspecified whether usp insulin use ([facility]) [facility] [...] not elsewhere classified Coronary artery disease involving [place] coronary artery of [place] heart Hyponatremia Hyposmolality and/or hyponatremia Hypophosphatemia Disorders [...] 2 diabetes mellitus without complication, unspecified whether computer terminal operator insulin use (HCC)- Primary Essential hypertension Unspecified [...] not elsewhere classified Coronary artery disease involving [place] coronary artery of [place] heart Hyponatremia Hyposmolality and/or hyponatremia Hypophosphatemia Disorders [...] Unspecified essential hypertension [facility] Additional Instructions Please continue your albuterol inhaler to help with bronchospasm/shortness of breath. Use the prescribed cough medication to help reduce your cough and follow-up with your family doctor for repeat evaluation. Your workup today shows no sign of heart damage or pneumonia. Please return to the ER should you have any worsening of symptoms or any further concernsWOhioHealth Van W[facility] Hospital Work Phone: Hospital Discharge instructionsAdditional Instructions [...] illness that is causing a COPD exacerbationWOhioHealth Van [facility] Hospital Work Phone: Reason for referral (narrative)* Outpatient Procedure (Routine) - Authorized Specialty Diagnoses / Procedures Referred By Contac t Referred To Contact [facility] Diagnoses Chronic obstructive pulmonary disease, unspecified COPD type (HCC) Procedures SPIROMETRY - BASELINE AND POST DILATOR BRNCDILAT RSPSE SPMTRY PRE&POST-BRNCDILAT ADMN Americo Borrego MD [address] [place] [address] Respiratory [place] [address] [place] [address] Referral ID Status Reason Start Date Expiration Date Visits Requested Visits Authorized [id number] Authorized Auto-Generat ed Referral 02/20/2024 03/21/2025 1 1 [facility] for referral (narrative)No reason for referral information availableWOhioHealth Van [facility] Hospital Work Phone: Summary Purpose Family History [...] FoundDocuments on File Type Date Recorded Patient Reference Test Clerk Expl anation Advance Directive(s) 09/15/2020 5:06 AM Advance Directive(s) 09/03/2020 2:18 PM Advance Directive(s) 04/29/2020 11:50 AM Advance Directive(s) 04/29/2020 3:25 PM Advance Directive(s) 04/29/2020 3:26 PM Advance Directive(s) 11/08/2019 6:53 AM Documents on File Type Date Recorded Patient Reference Test Clerk Expl anation Advance Directive(s) 04/29/2020 3:26 PM Advance Directive Response Recorded Date/ Time Advance Directives No November 18, 2016 1:01pm Living Will No December 06, 023 11:32am Power of Chiropractic Teacher No December 06, 2022 11:32am Advance Directive Response Recorded Date/ Time Advance Directives No November 18, 2016 2:01pm Living Will No January 29, 2024 12:08am Power of Chiropractic Teacher No January 28 12:08am Documents on File Type Date Recorded Patient Reference Test Clerk Expl anation Advance Directive(s) 04/29/2020 3:26 PM Advance Directive Response Recorded Date/ Time Do you have a Healthcare Power of Chiropractic Teacher? No July 06, 2025 3:02pm Advance Directives No November 18, 2016 2:01pm Procedure Findings Note HNO ID: [id number] Author: Sunny Bingham Service: ? Author Type: Nurse Protein Purification Scientist Type: Anesthesia Procedure Notes Filed: 09/03/2020 4:34 PM Note Text: ANESTHESIOLOGY PROCEDURE NOTE Airway General Information Procedure Start Time/Medication Administration: 09/03/2020 4:29 PM Patient location during procedure: OR Timeout Performed Pre-procedure: timeout performed Consent Obtained: Yes Patient identity confirmed: arm band Staffing SLIDE FASTENER REPAIRER: Lloyd Bingham Performed by: ALVARO Indications and [...] no Airway not difficult SIGNATURE: Lloyd Bingham APRN.SLIDE FASTENER REPAIRER PATIENT NAME: (more content not included)... Chief Complaint and Reason for Visit Chief Complaint n/v/d Chief Complaint sob Chief Complaint Admit Date sob July 06, 2025 3:02pm Reason for Referral Specialty Diagnoses / Procedures Referred By Gwen t Referred To Contact Ophthalmology Diagnoses Type 2 diabetes mellitus without complication, unspecified whether usp insulin use (HCC) Procedures CONSULT TO OPHTHALMOLOGY OFFICE/OUTPATIENT [facility] HIGH MDM 60 MINUTES Americo Borrego MD [address] [place] [address] Referral ID Status Reason Start Date Expiration Date Visits Requested Visits Authorized [id number] Authorized PCP Requested Referral 05/22/2024 05/22/2025 1 1 Additional Source Comments (unrecognized sect ion and content) No Status Records FoundNo Status Records FoundNo Status Records FoundNo Status Records Found INFORMATION SOURCE (unrecogn ized section and content) DATE CREATED AUTHOR 09/04/2020 [facility] ([place]) DATE CREATED AUTHOR AUTHOR'S ORGANIZ ATION 09/09/2020 [facility] DATE CREATED AUTHOR AUTHOR'S ORGANIZ ATION 04/13/2025 [facility] DATE CREATED AUTHOR AUTHOR'S ORGANIZ ATION 08/28/2025 [facility] Source Comments (unrecognize d section and content) In the event this informatio n is protected by the Federal Confidentiality of Alcohol and Drug Abuse Patient Records regulations: The Federal rules restrict any use of the information to criminally investigate or prosecute any alcohol or drug abuse patient.[facility] the event this information is protected by the Federal Confidentiality of Alcohol and Drug Abuse Patient Records regulations: The Federal rules restrict any use of the information to criminally investigate or prosecute any alcohol or drug abuse patient.[facility] CenterIn the event this information is protected by the Federal Confidentiality of Alcohol and Drug Abuse Patient Records regulations: The Federal rules restrict any use of the information to criminally investigate or prosecute any alcohol or drug abuse patient.[facility] CenterIn the event this information is protected by the Federal Confidentiality of Alcohol and Drug Abuse Patient Records regulations: The Federal rules restrict any use of the information to criminally investigate or prosecute any alcohol or drug abuse patient.[facility] CenterIn the event this information is protected by the Federal Confidentiality of Alcohol and Drug Abuse Patient Records regulations: The Federal rules restrict any use of the information to criminally investigate or prosecute any alcohol or drug abuse patient.[facility] CenterIn the event this information is protected by the Federal Confidentiality of Alcohol and Drug Abuse Patient Records regulations: The Federal rules restrict any use of the information to criminally investigate or prosecute any alcohol or drug abuse patient.[facility] CenterIn the event this information is protected by the Federal Confidentiality of Alcohol and Drug Abuse Patient Records regulations: The Federal rules restrict any use of the information to criminally investigate or prosecute any alcohol or drug abuse patient.[facility] CenterIn the event this information is protected by the Federal Confidentiality of Alcohol and Drug Abuse Patient Records regulations: The Federal rules restrict any use of the information to criminally investigate or prosecute any alcohol or drug abuse patient.[facility] CenterIn the event this information is protected by the Federal Confidentiality of Alcohol and Drug Abuse Patient Records regulations: The Federal rules restrict any use of the information to criminally investigate or prosecute any alcohol or drug abuse patient.[facility] CenterIn the event this information is protected by the Federal Confidentiality of Alcohol and Drug Abuse Patient Records regulations: The Federal rules restrict any use of the information to criminally investigate or prosecute any alcohol or drug abuse patient.[facility] CenterIn the event this information is protected by the Federal Confidentiality of Alcohol and Drug Abuse Patient Records regulations: The Federal rules restrict any use of the information to criminally investigate or prosecute any alcohol or drug abuse patient.[facility] CenterIn the event this information is protected by the Federal Confidentiality of Alcohol and Drug Abuse Patient Records regulations: The Federal rules restrict any use of the information to criminally investigate or prosecute any alcohol or drug abuse patient.[facility] CenterIn the event this information is protected by the Federal Confidentiality of Alcohol and Drug Abuse Patient Records regulations: The Federal rules restrict any use of the information to criminally investigate or prosecute any alcohol or drug abuse patient.[facility] CenterIn the event this information is protected by the Federal Confidentiality of Alcohol and Drug Abuse Patient Records regulations: The Federal rules restrict any use of the information to criminally investigate or prosecute any alcohol or drug abuse patient.[facility] CenterIn the event this information is protected by the Federal Confidentiality of Alcohol and Drug Abuse Patient Records regulations: The Federal rules restrict any use of the information to criminally investigate or prosecute any alcohol or drug abuse patient.[facility] CenterIn the event this information is protected by the Federal Confidentiality of Alcohol and Drug Abuse Patient Records regulations: The Federal rules restrict any use of the information to criminally investigate or prosecute any alcohol or drug abuse patient.[facility] CenterIn the event this information is protected by the Federal Confidentiality of Alcohol and Drug Abuse Patient Records regulations: The Federal rules restrict any use of the information to criminally investigate or prosecute any alcohol or drug abuse patient.[facility] CenterIn the event this information is protected by the Federal Confidentiality of Alcohol and Drug Abuse Patient Records regulations: The Federal rules restrict any use of the information to criminally investigate or prosecute any alcohol or drug abuse patient.[facility] CenterIn the event this information is protected by the Federal Confidentiality of Alcohol and Drug Abuse Patient Records regulations: The Federal rules restrict any use of the information to criminally investigate or prosecute any alcohol or drug abuse patient.[facility] CenterIn the event this information is protected by the Federal Confidentiality of Alcohol and Drug Abuse Patient Records regulations: The Federal rules restrict any use of the information to criminally investigate or prosecute any alcohol or drug abuse patient.[facility] CenterIn the event this information is protected by the Federal Confidentiality of Alcohol and Drug Abuse Patient Records regulations: The Federal rules restrict any use of the information to criminally investigate or prosecute any alcohol or drug abuse patient.[facility] CenterIn the event this information is protected by the Federal Confidentiality of Alcohol and Drug Abuse Patient Records regulations: The Federal rules restrict any use of the information to criminally investigate or prosecute any alcohol or drug abuse patient.[facility] CenterIn the event this information is protected by the Federal Confidentiality of Alcohol and Drug Abuse Patient Records regulations: The Federal rules restrict any use of the information to criminally investigate or prosecute any alcohol or drug abuse patient.[facility] CenterIn the event this information is protected by the Federal Confidentiality of Alcohol and Drug Abuse Patient Records regulations: The Federal rules restrict any use of the information to criminally investigate or prosecute any alcohol or drug abuse patient.[facility] CenterIn the event this information is protected by the Federal Confidentiality of Alcohol and Drug Abuse Patient Records regulations: The Federal rules restrict any use of the information to criminally investigate or prosecute any alcohol or drug abuse patient.[facility] CenterIn the event this information is protected by the Federal Confidentiality of Alcohol and Drug Abuse Patient Records regulations: The Federal rules restrict any use of the information to criminally investigate or prosecute any alcohol or drug abuse patient.[facility] CenterIn the event this information is protected by the Federal Confidentiality of Alcohol and Drug Abuse Patient Records regulations: The Federal rules restrict any use of the information to criminally investigate or prosecute any alcohol or drug abuse patient.[facility] CenterIn the event this information is protected by the Federal Confidentiality of Alcohol and Drug Abuse Patient Records regulations: The Federal rules restrict any use of the information to criminally investigate or prosecute any alcohol or drug abuse patient.[facility] CenterIn the event this information is protected by the Federal Confidentiality of Alcohol and Drug Abuse Patient Records regulations: The Federal rules restrict any use of the information to criminally investigate or prosecute any alcohol or drug abuse patient.[facility] CenterIn the event this information is protected by the Federal Confidentiality of Alcohol and Drug Abuse Patient Records regulations: The Federal rules restrict any use of the information to criminally investigate or prosecute any alcohol or drug abuse patient.[facility] CenterIn the event this information is protected by the Federal Confidentiality of Alcohol and Drug Abuse Patient Records regulations: The Federal rules restrict any use of the information to criminally investigate or prosecute any alcohol or drug abuse patient.[facility] CenterIn the event this information is protected by the Federal Confidentiality of Alcohol and Drug Abuse Patient Records regulations: The Federal rules restrict any use of the information to criminally investigate or prosecute any alcohol or drug abuse patient.[facility] CenterIn the event this information is protected by the Federal Confidentiality of Alcohol and Drug Abuse Patient Records regulations: The Federal rules restrict any use of the information to criminally investigate or prosecute any alcohol or drug abuse patient.[facility] CenterIn the event this information is protected by the Federal Confidentiality of Alcohol and Drug Abuse Patient Records regulations: The Federal rules restrict any use of the information to criminally investigate or prosecute any alcohol or drug abuse patient.[facility] CenterIn the event this information is protected by the Federal Confidentiality of Alcohol and Drug Abuse Patient Records regulations: The Federal rules restrict any use of the information to criminally investigate or prosecute any alcohol or drug abuse patient.[facility] CenterIn the event this information is protected by the Federal Confidentiality of Alcohol and Drug Abuse Patient Records regulations: The Federal rules restrict any use of the information to criminally investigate or prosecute any alcohol or drug abuse patient.[facility] CenterIn the event this information is protected by the Federal Confidentiality of Alcohol and Drug Abuse Patient Records regulations: The Federal rules restrict any use of the information to criminally investigate or prosecute any alcohol or drug abuse patient.[facility] CenterIn the event this information is protected by the Federal Confidentiality of Alcohol and Drug Abuse Patient Records regulations: The Federal rules restrict any use of the information to criminally investigate or prosecute any alcohol or drug abuse patient.[facility] Reason for Visit (unrecogniz ed section and [...] Date Comments Population Health Navigation Outreach 08/22/2024 [facility] WORKBENCDeirdre MARTINEZ PCSA Reason Comments F/U 3 Month Reason Onset Date Comments ACM SILVANO RN 09/12/2024 Medication Ad herence Review at request of payer Reason Onset Date Comments Refill Request 09/28/2024 Reason Comments Medication Problem Med Refills Reason Onset Date Comments Refill Request 06/13/2025 Care Teams (unrecognized sec tion and content) Pecan Cleaner Relationship Specialty Start Date End Date Americo Borrego MD [address] [place] [address] PCP - General Family Practice 05/07/15 Americo Borrego MD [address] [place] [address] Family Practice 05/07/15 Pecan Cleaner Relationship Specialty Start Date End Date Americo Borrego MD [address] [place] [address] PCP - General Family Practice 05/07/15 Americo Borrego MD [address] [place] [address] Family Practice 05/07/15 Pecan Cleaner Relationship Specialty Start Date End Date Americo Borrego MD [address] [place] [address] PCP - General Family Practice 05/07/15 Americo Borrego MD [address] [place] [address] Family Practice 05/07/15 Pecan Cleaner Relationship Specialty Start Date End Date Americo Borrego MD [address] [place] [address] PCP - General Family Medicine 05/07/15 Americo Borrego MD [address] [place] [address] Family Medicine 05/07/15 Pecan Cleaner Relationship Specialty Start Date End Date Americo Borrego MD [address] [place] [address] PCP - General Family Medicine 05/07/15 Americo Borrego MD [address] [place] [address] Family Medicine 05/07/15 Pecan Cleaner Relationship Specialty Start Date End Date Americo Borrego MD [address] [place] [address] PCP - General Family Medicine 05/07/15 Americo Borrego MD [address] [place] [address] Family Medicine 05/07/15 Team Status: Active Member Role Status Dates Dr. Americo Borrego MD Family Provider Active Dr. Americo Borrego MD Primary Care Provider Active Team Status: Inactive Member Role Status Dates Dr. Americo Borrego MD Primary Care Provider Active Dr. Sameer Whiteside MD Emergency Provider Active Pecan Cleaner Relationship Specialty Start Date End Date Americo Borrego MD [address] [place] [address] PCP - General Family Medicine 05/07/15 Americo Borrego MD [address] [place] [address] Family Medicine 05/07/15 Pecan Cleaner Relationship Specialty Start Date End Date Americo Borrego MD [address] [place] [address] PCP - General Family Medicine 05/07/15 Americo Borrego MD [address] [place] [address] Family Medicine 05/07/15 Pecan Cleaner Relationship Specialty Start Date End Date Americo Borrego MD [address] [facility] [address] PCP - General Family Medicine 05/07/15 Americo Borrego MD [address] [place] [address] Family Medicine 05/07/15 Pecan Cleaner Relationship Specialty Start Date End Date Americo Borrego MD [address] [place] [address] PCP - General Family Medicine 05/07/15 Americo Borrego MD [address] [place] [address] Family Medicine 05/07/15 Pecan Cleaner Relationship Specialty Start Date End Date Americo Borrego MD [address] [place] [address] PCP - General Family Medicine 05/07/15 Americo Borrego MD [address] [place] [address] Family Medicine 05/07/15 Pecan Cleaner Relationship Specialty Start Date End Date Americo Borrego MD [address] [facility] [address] PCP - General Family Medicine 05/07/15 Americo Borrego MD [address] [place] [address] Family Medicine 05/07/15 Pecan Cleaner Relationship Specialty Start Date End Date Americo Borrego MD [address] [facility] [address] PCP - General Family Medicine 05/07/15 Americo Borrego MD [address] [facility] [place] [address] Family Medicine 05/07/15 Pecan Cleaner Relationship Specialty Start Date End Date Americo Borrego MD [address] [facility] [address] PCP - General Family Medicine 05/07/15 Americo Borrego MD [address] [place] [address] Family Medicine 05/07/15 Pecan Cleaner Relationship Specialty Start Date End Date Americo Borrego MD [address] [place] [address] PCP - General Family Medicine 05/07/15 Americo Borrego MD [address] [place] [address] Family Medicine 05/07/15 Pecan Cleaner Relationship Specialty Start Date End Date Americo Borrego MD [address] [place] [address] PCP - General Family Medicine 05/07/15 Americo Borrego MD [address] [place] [address] Family Medicine 05/07/15 Pecan Cleaner Relationship Specialty Start Date End Date Americo Borrego MD [address] [place] [address] PCP - General Family Medicine 05/07/15 Americo Borrego MD [address] [place] [address] Family Medicine 05/07/15 Team Status: Inactive Member Role Status Dates Dr. Americo Borrego MD Primary Care Provider Active Dr. Bruce Dong DO Emergency Provider Active Pecan Cleaner Relationship Specialty Start Date End Date Americo Borrego MD [address] [facility] [address] PCP - General Family Medicine 05/07/15 Americo Borrego MD [address] [place] [address] Family Medicine 05/07/15 Pecan Cleaner Relationship Specialty Start Date End Date Americo Borrego MD [address] [place] [address] PCP - General Family Medicine 05/07/15 Americo Borrego MD [address] [place] [address] Family Medicine 05/07/15 Pecan Cleaner Relationship Specialty Start Date End Date Americo Borrego MD [address] [place] [address] PCP - General Family Medicine 05/07/15 Americo Borrego MD [address] [place] [address] Family Medicine 05/07/15 Pecan Cleaner Relationship Specialty Start Date End Date Americo Borrego MD [address] [place] [address] PCP - General Family Medicine 05/07/15 Americo Borrego MD [address] [place] [address] Family Medicine 05/07/15 Pecan Cleaner Relationship Specialty Start Date End Date Americo Borrego MD [address] [facility] [place] [address] PCP - General Family Medicine 05/07/15 Americo Borrego MD [address] [facility] [place] [address] Family Medicine 05/07/15 Pecan Cleaner Relationship Specialty Start Date End Date Americo Borrego MD [address] [facility] [place] [address] PCP - General Family Medicine 05/07/15 Americo Borrego MD [address] [facility] [place] [address] Family Medicine 05/07/15 Pecan Cleaner Relationship Specialty Start Date End Date Americo Borrego MD [address] [facility] [place] [address] PCP - General Family Medicine 05/07/15 Americo Borrego MD [address] [facility] [place] [address] Family Medicine 05/07/15 Pecan Cleaner Relationship Specialty Start Date End Date Americo Borrego MD [address] [place] [address] PCP - General Family Medicine 05/07/15 Americo Borergo MD [address] [place] [address] Family Medicine 05/07/15 Pecan Cleaner Relationship Specialty Start Date End Date Americo Borrego MD [address] [place] [address] PCP - General Family Medicine 05/07/15 Americo Borrego MD [address] [place] [address] Family Medicine 05/07/15 Pecan Cleaner Relationship Specialty Start Date End Date Americo Borrego MD [address] [place] [address] PCP - General Family Medicine 05/07/15 Americo Borrego MD [address] [place] [address] Family Medicine 05/07/15 Pecan Cleaner Relationship Specialty Start Date End Date Americo Borrego MD [address] [place] [address] PCP - General Family Medicine 05/07/15 Americo Borrego MD [address] [place] [address] Family Medicine 05/07/15 Malika Sethi APRN.CNP [address] [place] [address] [employer] Family Medicine 09/23/24 Pecan Cleaner Relationship Specialty Start Date End Date Americo Borrego MD [address] [facility] [place] [address] PCP - General Family Medicine 05/07/15 Americo Borrego MD [address] [facility] [place] [address] Family Medicine 05/07/15 Malika Sethi APRN.BUILDING SPECIALIST [address] [place] [address] [employer] Family Medicine 09/23/24 Dean Goldberg APRN.BUILDING SPECIALIST [address] [facility] [place] [address] [employer] Family Medicine 10/02/24 Pecan Cleaner Relationship Specialty Start Date End Date Americo Borrego MD [address] [place] [address] PCP - General Family Medicine 05/07/15 Americo Borrego MD [address] [facility] [place] [address] Family Medicine 05/07/15 Malika Sethi POCKETBOOK MAKER.BUILDING SPECIALIST [address] [facility] [place] [address] [employer] Family Medicine 09/23/24 Dean Goldberg APRN.BUILDING SPECIALIST [address] [facility] [place] [address] [employer] Family Medicine 10/02/24 Pecan Cleaner Relationship Specialty Start Date End Date Aemrico Borrego MD [address] [place] [address] PCP - General Family Medicine 05/07/15 Americo Borrego MD [address] [place] [address] Family Medicine 05/07/15 Dean Goldberg APRN.BUILDING SPECIALIST [address] [place] [address] [employer] Family [facility] 10/02/24 Pecan Cleaner Relationship Specialty Start Date End Date Americo Borrego MD [address] [place] [address] PCP - General Family Medicine 05/07/15 Americo Borrego MD [address] [place] [address] Family Medicine 05/07/15 Dean Goldberg APRN.BUILDING SPECIALIST [address] [place] [address] [employer] [facility] 10/02/24 Team Status: Active Member Role/Relationship [...] BE BASED ON THE PRIMARY CLINICAL RECORDS. [facility] [employer] [facility]. provides no warranty or guarantee of the accuracy or completeness of information in this document.
== END 2025-09-21 12:55 | disposition home or self-care (01) ==
LOC: ED 05:27 → MS3 06:51
PROVIDERS: Admitting Provider Internal Medicine; Emergency Provider Specialist/Technologist Athletic Trainer; PCP Internal Medicine; Visit Provider Internal Medicine
DX: J10.1 Influenza due to other identified influenza virus with other respiratory manifestations (principal); J44.0 Chronic obstructive pulmonary disease with (acute) lower respiratory infection; J44.1 Chronic obstructive pulmonary disease with (acute) exacerbation; Z68.41 Body mass index [BMI] 40.0-44.9, adult; E66.01 Morbid (severe) obesity due to excess calories; E11.65 Type 2 diabetes mellitus with hyperglycemia; Z79.4 Long term (current) use of insulin; E87.20 Acidosis, unspecified; D69.6 Thrombocytopenia, unspecified; I10 Essential (primary) hypertension; F32.A Depression, unspecified; E78.5 Hyperlipidemia, unspecified; F41.9 Anxiety disorder, unspecified; G47.33 Obstructive sleep apnea (adult) (pediatric); I25.10 Atherosclerotic heart disease of native coronary artery without angina pectoris; K21.9 Gastro-esophageal reflux disease without esophagitis; T38.0X5A Adverse effect of glucocorticoids and synthetic analogues, initial encounter; N40.0 Benign prostatic hyperplasia without lower urinary tract symptoms; Z79.51 Long term (current) use of inhaled steroids; Z79.899 Other long term (current) drug therapy; Z79.84 Long term (current) use of oral hypoglycemic drugs; Z86.718 Personal history of other venous thrombosis and embolism; Z87.891 Personal history of nicotine dependence; B34.9 Viral infection, unspecified; Z79.52 Long term (current) use of systemic steroids
CPT/HCPCS: 36415; 71045; 80048; 80053; 82962; 83036; 83605; 83735; 83880; 84484; 85025; 87040; 87070; 87205; 87449; 87631; 87641; 93005; 94002; 94640; 94668; 94762; 96361; 96365; 96367; 96375; 96376; 99221; 99285; A4216; G0378; J0696